=== PATIENT | female | born 1955 | race Caucasian/White ===

== ENCOUNTER 2018-06-29 22:22 | Emergency (ER) | payer MEDICAID, SELFPAY ==
[2018-06-29 22:24] VITALS: BP 129/86; PULSE 68; RESP 20; TEMP 37; O2SAT 97
--- NOTE | 2018-06-29 22:31 | W.ED.GENAD ---
Discharge Plan Discharge Details Chief Complaint: FacialProb Clinical Impression: Burning sensation of nose Reason For Visit: burning sensation nose Primary Care Provider: Sera Gutiérrez ED Provider: Morales Conte Disposition Patient Disposition: HOME Condition: Stable Home Meds and New Rx's Prescriptions: Continue sertraline [Zoloft] 50 MG tablet 100 mg PO DAILY RF: 0 clonazepam 1 MG tablet,disintegrating 2 tab PO HS RF: 0 loperamide [Imodium A-D] 2 MG capsule 2 mg PO QID PRN (Reason: Diarrhea) RF: 0 metoprolol succinate 50 MG tablet extended release 24 hr 50 mg PO BID RF: 0 oxycodone-acetaminophen [Percocet] 1 EACH tablet 1 ea PO QID RF: 0 furosemide 20 MG tablet 20 mg PO BID RF: 0 methylphenidate HCl 10 MG tablet 10 mg PO DAILY RF: 0 nystatin (bulk) 1 EACH powder 1 ea Miscellaneous TID RF: 0 ipratropium-albuterol 3 ML solution for nebulization 3 ml Inhalation QID RF: 0 acetaminophen 500 MG tablet 1,000 mg PO Q6H PRN RF: 0 naloxone [Narcan] 4 MG spray,non-aerosol 4 mg NS as directed 1 Days Qty: 2 RF: 0 lorazepam 0.5 MG tablet 0.5 mg PO QID PRNRF: 0 pantoprazole 40 MG tablet,delayed release (DR/EC) 40 mg PO DAILY RF: 0 albuterol sulfate [ProAir HFA] 200 PUFF HFA aerosol inhaler 2 puff Inhalation .Q4-6H PRN PRNRF: 0 cyclobenzaprine 10 MG tablet 10 mg PO BID RF: 0 calcium carbonate-vitamin D3 1 EACH tablet 2 tab PO BID RF: 0 ferrous sulfate 325 MG tablet 325 mg PO DAILY RF: 0 dicyclomine 10 MG capsule 10 mg PO BID RF: 0 loratadine 10 MG tablet 10 mg PO DAILY PRNRF: 0 fluticasone-salmeterol [Advair HFA] 60 PUFF HFA aerosol inhaler 2 puff Inhalation BID RF: 0 anastrozole [Arimidex] 1 MG tablet 1 mg PO DAILY RF: 0 glucosamine sulfate 2KCl 1,000 MG tablet 500 mg PO BID RF: 0 cyanocobalamin (vitamin B-12) [Vitamin B-12] 100 MCG tablet 100 mcg PO DAILY RF: 0 sennosides-docusate sodium [Senna-S] 1 EACH tablet 2 ea PO BID RF: 0 ascorbic acid (vitamin C) [Vitamin C] 500 MG tablet 500 mg PO BID RF: 0 nitroglycerin [Nitrostat] 0.4 MG tablet, sublingual 0.4 mg Sublingual DIRECTED PRNRF: 0 ergocalciferol (vitamin D2) [Vitamin D2] 50,000 UNITS capsule 50,000 units PO DIRECTED RF: 0 zolpidem 10 MG tablet 10 mg PO HS PRN PRNRF: 0 spironolactone 25 MG tablet 25 mg PO DAILY Qty: 30 RF: 0 azithromycin 250 MG tablet 250 mg PO DAILY Qty: 4 RF: 0 Discharge Instructions Additional Instructions: you can try using a humidifier, you can also try taking claritin follow up with your primary care provider if symptoms continue this week return to the emergency department for severe chest pain, persistent vomit or severe worsening shortness of breath Discharge Data Discharge Physician: Morales Conte Medical Decision Making [facility] Narrative Medical decision making narrative: 62 yo female with multiple medical problems who is on oxygen comes in with cc of burning sensation in posterior pharynx and nose, no chest pain or sob. She denies any difficulty swallowing either or changes in voice. She states there is a burning sensation from anterior nares to posterior pharynx. Has midline uvula, no erythema, no pain over hyoid or restricted neck movements, and normal nares. She tried mylanta and did not have much relief and states she thought oragel might help so came here. Given her lack of chest pain or sob and the burning sensation is primarily in her nose do not feel w/u for acs indicated. No findings to suggest epiglotitis, rpa, guest experience captain or pharyngitis. I advised she might have discomfort from the oxygen or maybe allergies, she should try a humidifier vs claritin and f/u with pcp, return precautions Differential Diagnosis dry air, gerd, rhinitis HPI - General Adult General Mode of arrival: EMS. Date/Time Provider Initiated Documentation: 06/29/18 22:30. Limitations to Documentation: no limitations. Information obtained by: patient. History of Present Illness 62 year old F presents to the emergency department with the chief complaint of burning sensation in posterior pharynx and nose, described as mild, with intensity rated at 4. Quality is described as burning, and is localized to the mouth. Patient reports no radiation. Patient started experiencing this hour(s) (2) and it has been constant. No relieving factors improve symptom(s), No exacerbating factors reported . Patient notes no other symptoms.. Patient did receive the following treatments prior to arrival, other (mylanta) Related Data Home Medications Medication Instructions Recorded Confirmed lorazepam 0.5 mg PO QID PRN 03/09/13 04/26/18 pantoprazole 40 mg PO DAILY 03/09/13 12/23/17 clonazepam 2 tab PO HS 10/03/14 04/26/18 sertraline [Zoloft] 100 mg PO DAILY tab-cap 10/03/14 12/23/17 albuterol sulfate [ProAir HFA] 2 puff INHALATION .Q4-6H PRN PRN 10/26/14 04/26/18 calcium carbonate-vitamin D3 2 tab PO BID 10/26/14 04/26/18 cyclobenzaprine 10 mg PO BID 10/26/14 04/26/18 dicyclomine 10 mg PO BID 10/26/14 04/26/18 ferrous sulfate 325 mg PO DAILY 10/26/14 04/26/18 fluticasone-salmeterol [Advair HFA] 2 puff INHALATION BID 10/26/14 04/26/18 loratadine 10 mg PO DAILY PRN 10/26/14 04/26/18 loperamide [Imodium A-D] 2 mg PO QID PRN 12/09/16 04/26/18 metoprolol succinate 50 mg PO BID 12/09/16 04/26/18 anastrozole [Arimidex] 1 mg PO DAILY 12/18/16 04/26/18 glucosamine sulfate 2KCl 500 mg PO BID 12/18/16 04/26/18 ascorbic acid (vitamin C) [Vitamin 500 mg PO BID 05/30/17 04/26/18 C] cyanocobalamin (vitamin B-12) 100 mcg PO DAILY 05/30/17 04/26/18 [Vitamin B-12] ergocalciferol (vitamin D2) 50,000 units PO DIRECTED 05/30/17 04/26/18 [Vitamin D2] nitroglycerin [Nitrostat] 0.4 mg SUBLINGUAL DIRECTED PRN 05/30/17 04/26/18 sennosides-docusate sodium 2 ea PO BID 05/30/17 12/23/17 [Senna-S] zolpidem 10 mg PO HS PRN PRN 05/30/17 04/26/18 acetaminophen 1,000 mg PO Q6H PRN tab-cap 02/12/18 04/26/18 furosemide 20 mg PO BID tab-cap 02/12/18 04/26/18 ipratropium-albuterol 3 ml INHALATION QID 02/12/18 04/26/18 methylphenidate HCl 10 mg PO DAILY 02/12/18 04/26/18 nystatin (bulk) 1 ea MISCELLANEOUS TID jad 02/12/18 04/26/18 oxycodone-acetaminophen [Percocet] 1 ea PO QID tab 02/12/18 04/26/18 Previous Rx's Medication Instructions Recorded spironolactone 25 mg PO DAILY #30 tab 08/30/17 azithromycin 250 mg PO DAILY #4 tablet 04/26/18 Allergies Allergy/AdvReac Type Severity Reaction Status Date / Time haloperidol Allergy Severe seizure Unverified 02/16/18 12:08 cephalexin monohydrate Allergy Mild Unverified 02/16/18 12:08 [From Keflex] ciprofloxacin [From Cipro] Allergy Mild Hives Unverified 02/16/18 12:08 dextroamphetamine Allergy Unknown Unverified 02/16/18 12:08 doxylamine Allergy Unknown Unverified 02/16/18 12:08 eszopiclone [From Lunesta] Allergy Unknown Unverified 02/16/18 12:08 Penicillins Allergy Unknown Unverified 02/16/18 12:08 pseudoephedrine Allergy Unknown Unverified 02/16/18 12:08 Sulfa (Sulfonamide Allergy Unknown Unverified 02/16/18 12:08 Antibiotics) trazodone Allergy Unknown Unverified 02/16/18 12:08 venlafaxine HCl AdvReac Severe crazy Unverified 02/16/18 12:08 [From Effexor] dextromethorphan HBr AdvReac Intermediate muscle Unverified 02/16/18 12:08 [From NyQuil] twitch doxylamine succinate AdvReac Intermediate muscle Unverified 02/16/18 12:08 [From NyQuil] twitch omeprazole AdvReac Intermediate Diarrhea Unverified 02/16/18 12:08 pseudoephedrine HCl AdvReac Intermediate muscle Unverified 02/16/18 12:08 [From NyQuil] twitch chlorpromazine HCl AdvReac passes out Unverified 02/16/18 12:08 [From Thorazine] Review of Systems Review of Systems All systems reviewed & are unremarkable except as noted in HPI and below Constitutional Denies chills, Denies fever(s) and Denies weakness Eyes Patient Denies loss of vision ENT Denies change in voice Cardiovascular Denies chest pain and Denies dyspnea Respiratory Denies dyspnea Gastrointestinal Denies abdominal pain, Denies nausea and Denies vomiting Genitourinary Denies dysuria Musculoskeletal Denies joint swelling Integumentary/Breasts Denies rash Neurologic Denies loss of vision and Denies weakness Psychiatric Denies depression Endocrine Denies cold intolerance and Denies heat intolerance Allergic/Immunologic Reports urticaria PFSH Medical History ADD (attention deficit disorder) Angina at rest Asthma Atrial fibrillation Breast cancer Chest pain, atypical Chronic pain Chronic rhinitis Cirrhosis of liver Compression fracture of spine Decreased visual acuity Depression Diastolic heart failure GI (gastrointestinal bleed) Gastric bypass status for obesity History of paroxysmal supraventricular tachycardia Hx of deep venous thrombosis Hyperparathyroidism , secondary, non-renal Hypertension IBS (irritable bowel syndrome) Insomnia Morbid obesity STACEY (obstructive sleep apnea) Osteoarthritis Osteopenia Oxygen dependent PUD (peptic ulcer disease) Pulmonary HTN Superficial thrombophlebitis Tricuspid regurgitation Social History Smoking/Tobacco Use Status: Former Tobacco Use Surgical History Breast, Mastectomy EGD - MAC Gastric Bypass Exam Const General: no acute distress Orientation: alert HENMT Head: normal to inspection Ears: external ears normal General nose exam: external nose normal Mouth: oropharynx normal and moist mucous membranes Eyes General: appearance normal, both eyes and all related structures Neck Neck: normal visual inspection Resp Effort & Inspection: normal respiratory effort and able to speak in complete sentences Cardio Rate: regular rate Skin General skin exam: no rashes or lesions noted Neuro General: alert and oriented x3 Extrem General: normal to inspection Psych Mental Status: mental status grossly normal
--- NOTE | 2018-06-29 22:34 | ED.GENADUL_ITS ---
Discharge Plan Discharge Details Chief Complaint: FacialProb Clinical Impression: Burning sensation of nose Reason For Visit: burning sensation nose Primary Care Provider: Sera Gutiérrez ED Provider: Morales Conte Disposition Patient Disposition: HOME Condition: Stable Home Meds and New Rx's Prescriptions: Continue sertraline [Zoloft] 50 MG tablet 100 mg PO DAILY RF: 0 clonazepam 1 MG tablet,disintegrating 2 tab PO HS RF: 0 loperamide [Imodium A-D] 2 MG capsule 2 mg PO QID PRN (Reason: Diarrhea) RF: 0 metoprolol succinate 50 MG tablet extended release 24 hr 50 mg PO BID RF: 0 oxycodone-acetaminophen [Percocet] 1 EACH tablet 1 ea PO QID RF: 0 furosemide 20 MG tablet 20 mg PO BID RF: 0 methylphenidate HCl 10 MG tablet 10 mg PO DAILY RF: 0 nystatin (bulk) 1 EACH powder 1 ea Miscellaneous TID RF: 0 ipratropium-albuterol 3 ML solution for nebulization 3 ml Inhalation QID RF: 0 acetaminophen 500 MG tablet 1,000 mg PO Q6H PRN RF: 0 naloxone [Narcan] 4 MG spray,non-aerosol 4 mg NS as directed 1 Days Qty: 2 RF: 0 lorazepam 0.5 MG tablet 0.5 mg PO QID PRNRF: 0 pantoprazole 40 MG tablet,delayed release (DR/EC) 40 mg PO DAILY RF: 0 albuterol sulfate [ProAir HFA] 200 PUFF HFA aerosol inhaler 2 puff Inhalation .Q4-6H PRN PRNRF: 0 cyclobenzaprine 10 MG tablet 10 mg PO BID RF: 0 calcium carbonate-vitamin D3 1 EACH tablet 2 tab PO BID RF: 0 ferrous sulfate 325 MG tablet 325 mg PO DAILY RF: 0 dicyclomine 10 MG capsule 10 mg PO BID RF: 0 loratadine 10 MG tablet 10 mg PO DAILY PRNRF: 0 fluticasone-salmeterol [Advair HFA] 60 PUFF HFA aerosol inhaler 2 puff Inhalation BID RF: 0 anastrozole [Arimidex] 1 MG tablet 1 mg PO DAILY RF: 0 glucosamine sulfate 2KCl 1,000 MG tablet 500 mg PO BID RF: 0 cyanocobalamin (vitamin B-12) [Vitamin B-12] 100 MCG tablet 100 mcg PO DAILY RF: 0 sennosides-docusate sodium [Senna-S] 1 EACH tablet 2 ea PO BID RF: 0 ascorbic acid (vitamin C) [Vitamin C] 500 MG tablet 500 mg PO BID RF: 0 nitroglycerin [Nitrostat] 0.4 MG tablet, sublingual 0.4 mg Sublingual DIRECTED PRNRF: 0 ergocalciferol (vitamin D2) [Vitamin D2] 50,000 UNITS capsule 50,000 units PO DIRECTED RF: 0 zolpidem 10 MG tablet 10 mg PO HS PRN PRNRF: 0 spironolactone 25 MG tablet 25 mg PO DAILY Qty: 30 RF: 0 azithromycin 250 MG tablet 250 mg PO DAILY Qty: 4 RF: 0 Discharge Instructions Additional Instructions: you can try using a humidifier, you can also try taking claritin follow up with your primary care provider if symptoms continue this week return to the emergency department for severe chest pain, persistent vomit or severe worsening shortness of breath Discharge Data Discharge Physician: Morales Conte Medical Decision Making [facility] Narrative Medical decision making narrative: 62 yo female with multiple medical problems who is on oxygen comes in with cc of burning sensation in posterior pharynx and nose, no chest pain or sob. She denies any difficulty swallowing either or changes in voice. She states there is a burning sensation from anterior nares to posterior pharynx. Has midline uvula, no erythema, no pain over hyoid or restricted neck movements, and normal nares. She tried mylanta and did not have much relief and states she thought oragel might help so came here. Given her lack of chest pain or sob and the burning sensation is primarily in her nose do not feel w/u for acs indicated. No findings to suggest epiglotitis, rpa, seating captain or pharyngitis. I advised she might have discomfort from the oxygen or maybe allergies, she should try a humidifier vs claritin and f/u with pcp, return precautions Differential Diagnosis dry air, gerd, rhinitis HPI - General Adult General Mode of arrival: EMS . Date/Time Provider Initiated Documentation: 06/29/18 22:30 . Limitations to Documentation: no limitations . Information obtained by: patient . History of Present Illness 62 year old F presents to the emergency department with the chief complaint of burning sensation in posterior pharynx and nose, described as mild, with intensity rated at 4. Quality is described as burning, and is localized to the mouth. Patient reports no radiation. Patient started experiencing this hour(s) (2) and it has been constant. No relieving factors improve symptom(s ), No exacerbating factors reported . Patient notes no other symptoms.. Patient did receive the following treatments prior to arrival, other (mylanta) Related Data Home Medications Medication Instructions Recorded Confirmed lorazepam 0.5 mg PO QID PRN 03/09/13 04/26/18 pantoprazole 40 mg PO DAILY 03/09/13 12/23/17 clonazepam 2 tab PO HS 10/03/14 04/26/18 sertraline [Zoloft] 100 mg PO DAILY tab-cap 10/03/14 12/23/17 albuterol sulfate [ProAir HFA] 2 puff INHALATION .Q4-6H PRN PRN 10/26/14 calcium carbonate-vitamin D3 2 tab PO BID 10/26/14 04/26/18 cyclobenzaprine 10 mg PO BID 10/26/14 04/26/18 dicyclomine 10 mg PO BID 10/26/14 04/26/18 ferrous sulfate 325 mg PO DAILY 10/26/14 04/26/18 fluticasone-salmeterol [Advair HFA] 2 puff INHALATION BID 10/26/14 04/26/18 loratadine 10 mg PO DAILY PRN 10/26/14 04/26/18 loperamide [Imodium A-D] 2 mg PO QID PRN 12/09/16 04/26/18 metoprolol succinate 50 mg PO BID 12/09/16 04/26/18 anastrozole [Arimidex] 1 mg PO DAILY 12/18/16 04/26/18 glucosamine sulfate 2KCl 500 mg PO BID 12/18/16 04/26/18 ascorbic acid (vitamin C) [Vitamin 500 mg PO BID 05/30/17 04/26/18 C] cyanocobalamin (vitamin B-12) 100 mcg PO DAILY 05/30/17 04/26/18 [Vitamin B-12] ergocalciferol (vitamin D2) 50,000 units PO DIRECTED 05/30/17 04/26/18 [Vitamin D2] nitroglycerin [Nitrostat] 0.4 mg SUBLINGUAL DIRECTED PRN 05/30/17 04/26/18 sennosides-docusate sodium 2 ea PO BID 05/30/17 12/23/17 [Senna-S] zolpidem 10 mg PO HS PRN PRN 05/30/17 04/26/18 acetaminophen 1,000 mg PO Q6H PRN tab-cap 02/12/18 04/26/18 furosemide 20 mg PO BID tab-cap 02/12/18 04/26/18 ipratropium-albuterol 3 ml INHALATION QID 02/12/18 04/26/18 methylphenidate HCl 10 mg PO DAILY 02/12/18 04/26/18 nystatin (bulk) 1 ea MISCELLANEOUS TID jad 02/12/18 04/26/18 oxycodone-acetaminophen [Percocet] 1 ea PO QID tab 02/12/18 04/26/18 Previous Rx's Medication Instructions Recorded spironolactone 25 mg PO DAILY #30 tab 08/30/17 azithromycin 250 mg PO DAILY #4 tablet 04/26/18 Allergies Allergy/AdvReac Type Severity Reaction Status Date / Time haloperidol Allergy Severe seizure Unverified 02/16/18 12:08 cephalexin monohydrate Allergy Mild Unverified 02/16/18 12:08 [From Keflex] ciprofloxacin [From Cipro] Allergy Mild Hives Unverified 02/16/18 12:08 dextroamphetamine Allergy Unknown Unverified 02/16/18 12:08 doxylamine Allergy Unknown Unverified 02/16/18 12:08 eszopiclone [From Lunesta] Allergy Unknown Unverified 02/16/18 12:08 Penicillins Allergy Unknown Unverified 02/16/18 12:08 pseudoephedrine Allergy Unknown Unverified 02/16/18 12:08 Sulfa (Sulfonamide Allergy Unknown Unverified 02/16/18 12:08 Antibiotics) trazodone Allergy Unknown Unverified 02/16/18 12:08 venlafaxine HCl AdvReac Severe crazy Unverified 02/16/18 12:08 [From Effexor] dextromethorphan HBr AdvReac Intermediate muscle Unverified 02/16/18 12:08 [From NyQuil] twitch doxylamine succinate AdvReac Intermediate muscle Unverified 02/16/18 12:08 [From NyQuil] twitch omeprazole AdvReac Intermediate Diarrhea Unverified 02/16/18 12:08 pseudoephedrine HCl AdvReac Intermediate muscle Unverified 02/16/18 12:08 [From NyQuil] twitch chlorpromazine HCl AdvReac passes out Unverified 02/16/18 12:08 [From Thorazine] Review of Systems Review of Systems All systems reviewed & are unremarkable except as noted in HPI and below Constitutional Denies chills, Denies fever(s) and Denies weakness Eyes Patient Denies loss of vision ENT Denies change in voice Cardiovascular Denies chest pain and Denies dyspnea Respiratory Denies dyspnea Gastrointestinal Denies abdominal pain, Denies nausea and Denies vomiting Genitourinary Denies dysuria Musculoskeletal Denies joint swelling Integumentary/Breasts Denies rash Neurologic Denies loss of vision and Denies weakness Psychiatric Denies depression Endocrine Denies cold intolerance and Denies heat intolerance Allergic/Immunologic Reports urticaria PFSH Medical History ADD (attention deficit disorder) Angina at rest Asthma Atrial fibrillation Breast cancer Chest pain, atypical Chronic pain Chronic rhinitis Cirrhosis of liver Compression fracture of spine Decreased visual acuity Depression Diastolic heart failure GI (gastrointestinal bleed) Gastric bypass status for obesity History of paroxysmal supraventricular tachycardia Hx of deep venous thrombosis Hyperparathyroidism , secondary, non-renal Hypertension IBS (irritable bowel syndrome) Insomnia Morbid obesity STACEY (obstructive sleep apnea) Osteoarthritis Osteopenia Oxygen dependent PUD (peptic ulcer disease) Pulmonary HTN Superficial thrombophlebitis Tricuspid regurgitation Social History Smoking/Tobacco Use Status: Former Tobacco Use Surgical History Breast, Mastectomy EGD - MAC Gastric Bypass Exam Const General: no acute distress Orientation: alert HENMT Head: normal to inspection Ears: external ears normal General nose exam: external nose normal Mouth: oropharynx normal and moist mucous membranes Eyes General: appearance normal, both eyes and all related structures Neck Neck: normal visual inspection Resp Effort & Inspection: normal respiratory effort and able to speak in complete sentences Cardio Rate: regular rate Skin General skin exam: no rashes or lesions noted Neuro General: alert and oriented x3 Extrem General: normal to inspection Psych Mental Status: mental status grossly normal
== END 2018-06-29 23:04 | disposition home or self-care (01) ==
PROVIDERS: Emergency Provider Emergency Medicine; PCP Family Medicine
DX: R20.8 Other disturbances of skin sensation (principal); I10 Essential (primary) hypertension
CPT/HCPCS: 99282

== ENCOUNTER 2018-08-06 16:42 | Outpatient (CLI) | payer MEDICAID, SELFPAY ==
[2018-08-06 17:10] LABS: Abs Immature Grans 0.01 k/cumm (0.0-0.09); Absolute Basophil Count 0.02 k/cumm (0.0-0.2); Absolute Eosinophil Count 0.18 k/cumm (0.0-0.7); Absolute Monocyte Count 0.28 k/cumm (0.11-0.7); Absolute Neutrophil Count 4.65 k/cumm (1.2-6.7); Basophils % 0.3; HGB 13.6 g/dL (12.0-15.5); Immature Grans % 0.2; Lymphocytes % 14.9; Mean Corp. HGB Concentration 33.2 g/dL (32.0-36.0); Mean Corpuscular Hemoglobin 35.1 pg (27.0-33.0); Mean Corpuscular Volume 105.7 fL (80-95); Mean Platelet Volume 11.1 fL (8.0-11.0); Monocytes % 4.6; Platelet Count 148 x1000/uL (130-400); RBC 3.88 m/cumm (4.00-5.20); RBC Distribution Width 12.9 % (11.7-14.6); White Blood Cell Count 6.04 k/cumm (4.4-10.8)
[2018-08-06 17:59] LABS: ALT 16 U/L (12-78); AST 11 U/L (15-37); Albumin 3.2 g/dL (3.4-5.0); Alkaline Phosphatase 133 U/L (46-116); BUN 25 mg/dL (7-18); Bilirubin, Total 0.5 mg/dL (0.2-1.0); CREATININE 0.86 mg/dL (0.55-1.02); Calcium 8.3 mg/dL (8.5-10.1); Chloride 103 mmol/L (98-107); Glucose 101 mg/dL (70-100); Potassium 4.9 mmol/L (3.5-5.1); Sodium 140 mmol/L (136-145); Total Protein 5.9 g/dL (6.4-8.2)
[2018-08-06 18:07] LABS: Diff Comment RBC Morph Reviewed; Macrocytosis 3+
== END 2018-08-06 17:02 ==
PROVIDERS: PCP Family Medicine; Visit Provider Nurse Practitioner
DX: C50.612 Malignant neoplasm of axillary tail of left female breast (principal); Z17.0 Estrogen receptor positive status [ER+]
CPT/HCPCS: 36415; 80053; 85025

== ENCOUNTER 2018-08-30 06:28 | Emergency (ER) | payer MEDICAID, SELFPAY ==
[2018-08-30] VITALS (70 sets, daily range): BP systolic 56–128; BP diastolic 38–97; PULSE 70–167; RESP 13–37; TEMP 37.2–39.5; O2SAT 92–100
--- NOTE | 2018-08-30 06:42 | DI.CT_ITS ---
SYMPTOM/DIAGNOSIS: ABDOMINAL BLOATING, DISTENSION,. CT ABDOMEN AND PELVIS: CT abdomen and pelvis was performed. Comparison 11/28/16 and 04/26/18 There is again seen what appears to be a loculated pleural effusion in the left lung base with adjacent atelectasis. This is unchanged compared to 04/26/18. There is a small right pleural effusion and subjacent infiltrate. The liver, spleen, and adrenal glands are unremarkable. No biliary ductal dilatation is present. The pancreas appears atrophic but otherwise unremarkable.. The kidneys show normal and symmetric enhancement. No evidence of a solid renal mass or obstruction. The urinary bladder is intact. The reproductive organs are unremarkable. Abdominal aorta is of normal caliber. No significant abdominal or pelvic adenopathy, ascites or pneumoperitoneum is present. There is a large pannus containing loops of small and large bowel. No evidence of bowel obstruction is seen. Bowel anastomoses are seen in the abdomen and pelvis. There does appear to be a small anterior abdominal wall hernia to the right of midline containing an unremarkable loop of small bowel. No evidence of incarceration or obstruction is seen. Suture material is seen in the anterior abdominal wall. No findings to suggest an acute appendicitis are present. The bones appear osteopenic. No acute fractures or subluxations are seen. There is a compression deformity of the superior end plate of L2, not present on the examination from 11/28/16 but present on the x-ray of the lumbar spine from 10/20/17 and is unchanged. No new fractures or subluxations in the lumbar spine are seen. IMPRESSION: 1. Stable loculated left pleural effusion with subjacent infiltrate which may represent atelectasis or pneumonia. 2. Gaseous distension of several loops of bowel within the patient's pannus but no evidence of obstruction. 3. Small anterior abdominal wall hernia to the right of midline containing an unremarkable loop of small bowel. The bowel shows no evidence of obstruction , incarceration or strangulation.
--- NOTE | 2018-08-30 06:45 | W.ED.GENAD ---
Discharge Plan Disposition Patient Disposition: [facility] Condition: Critical Discharge Details Chief Complaint: Abd Prob Clinical Impression: Septic shock, Transaminitis Reason For Visit: ARTHUREX Primary Care Provider: Sera Gutiérrez ED Provider: Vadim Hernandze Home Meds and New Rx's Prescriptions: No Action sertraline [Zoloft] 50 MG tablet 100 mg PO DAILY RF: 0 clonazepam 1 MG tablet,disintegrating 2 tab PO HS RF: 0 loperamide [Imodium A-D] 2 MG capsule 2 mg PO QID PRN (Reason: Diarrhea) RF: 0 metoprolol succinate 50 MG tablet extended release 24 hr 50 mg PO BID RF: 0 oxycodone-acetaminophen [Percocet] 1 EACH tablet 1 ea PO QID RF: 0 furosemide 20 MG tablet 20 mg PO BID RF: 0 methylphenidate HCl 10 MG tablet 10 mg PO DAILY RF: 0 nystatin (bulk) 1 EACH powder 1 ea Miscellaneous TID RF: 0 ipratropium-albuterol 3 ML solution for nebulization 3 ml Inhalation QID RF: 0 acetaminophen 500 MG tablet 1,000 mg PO Q6H PRN RF: 0 naloxone [Narcan] 4 MG spray,non-aerosol 4 mg NS as directed 1 Days Qty: 2 RF: 0 lorazepam 0.5 MG tablet 0.5 mg PO QID PRNRF: 0 pantoprazole 40 MG tablet,delayed release (DR/EC) 40 mg PO DAILY RF: 0 albuterol sulfate [ProAir HFA] 200 PUFF HFA aerosol inhaler 2 puff Inhalation .Q4-6H PRN PRNRF: 0 cyclobenzaprine 10 MG tablet 10 mg PO BID RF: 0 calcium carbonate-vitamin D3 1 EACH tablet 2 tab PO BID RF: 0 ferrous sulfate 325 MG tablet 325 mg PO DAILY RF: 0 dicyclomine 10 MG capsule 10 mg PO BID RF: 0 loratadine 10 MG tablet 10 mg PO DAILY PRNRF: 0 fluticasone-salmeterol [Advair HFA] 60 PUFF HFA aerosol inhaler 2 puff Inhalation BID RF: 0 anastrozole [Arimidex] 1 MG tablet 1 mg PO DAILY RF: 0 glucosamine sulfate 2KCl 1,000 MG tablet 500 mg PO BID RF: 0 cyanocobalamin (vitamin B-12) [Vitamin B-12] 100 MCG tablet 100 mcg PO DAILY RF: 0 sennosides-docusate sodium [Senna-S] 1 EACH tablet 2 ea PO BID RF: 0 ascorbic acid (vitamin C) [Vitamin C] 500 MG tablet 500 mg PO BID RF: 0 nitroglycerin [Nitrostat] 0.4 MG tablet, sublingual 0.4 mg Sublingual DIRECTED PRNRF: 0 ergocalciferol (vitamin D2) [Vitamin D2] 50,000 UNITS capsule 50,000 units PO DIRECTED RF: 0 zolpidem 10 MG tablet 10 mg PO HS PRN PRNRF: 0 spironolactone 25 MG tablet 25 mg PO DAILY Qty: 30 RF: 0 azithromycin 250 MG tablet 250 mg PO DAILY Qty: 4 RF: 0 Medical Decision Making <Shade Saunders MD - Last Filed: 08/30/18 07:17> 62-year-old female with multiple medical problems presents with hours of progressive abdominal pain and bloating. She arrives appearing mildly jaundiced, with a distended and tender abdomen, with rate controlled atrial fibrillation. Differential diagnosis includes electrolyte disturbance, cholangitis, Dehydration, ileus, small bowel obstruction. Given her age and comorbidities must consider occult presentation of [place]. Patient referred for laboratory testing, EKG, chest x-ray, CT scan of the abdomen and pelvis. it is change of shift, patient will be signed out to Dr Hernandez, please see his note regarding the patients diagnostic findings. ECG Data Attestation: I personally reviewed and interpreted this ECG (s) as follows: Interpretation: Underlying atrial fibrillation, rate of 100, QRS is narrow, there is no ST segment elevation <Vadim Hernandez MD - Last Filed: 08/30/18 14:02> 7:30 -- Care signed out to me by Dr. Saunders: Patient here with abdominal pain, jaundice, transaminitis, leukocytosis, abdominal pain, bloating, diffuse tenderness. Hypotensive. Patient receiving IV fluid bolus. Plan to follow-up on CT imaging. -- Patient febrile. Patient has multiple drug allergies. Will give flagyl IV. 11:00 -- patient reassessed multiple times. Patient was initial difficult IV access. She now has 2 IVs. -- UA reviewed and consist with UTI. Patient has been on macrobid for uti over past week. ttp on my exam RUQ. 12:30 --CT of the abdomen and pelvis interpreted by radiology: Stable left suspected loculated pleural effusion with adjacent mild atelectasis. Minimal right dependent atelectasis. Gaseous distention of multiple bowel loops within the pannus. No evidence of bowel obstruction. Small ventral hernia left abdomen containing single small bowel loop, hernia measuring 12 mm. No proximal obstruction liver noted to be normal with no mass. Gallbladder and bile ducts noted to be normal with no calcified stones and no ductal dilatation. She is received 3 L of crystalloid. MAP improved to 100. Concern for urosepsis vs cholangitis vs other. Will add aztreonam 2g IV. No ICU beds available here. -- BP decreased to 78/45. Will start levophed infusion. 13:00 -- Spoke with Dr. Chamorro who will accept at [facility] [place]. 13:15 -- BP improved on 8mcg/min. Left AC 18g working well. 14:00 -- Patient reassessed and BP stable with MAP 70 at time of transfer. HPI <Shade Saunders MD - Last Filed: 08/30/18 07:17> General Mode of arrival: EMS. Date/Time Provider Initiated Documentation: 08/30/18 07:07. Limitations to Documentation: no limitations. Information obtained by: patient and EMS. History of Present Illness 62 year old F presents to the emergency department with the chief complaint of Abdominal pain and bloating, described as moderate, Quality is described as aching and constant, and is localized to the abdomen. Patient started experiencing this hour(s) and it has been constant. No relieving factors improve symptom(s), No exacerbating factors reported . Patient notes denies fever/chills. HPI Narrative: 62-year-old female presents from home via EMS. She describes to me hours of progressive abdominal pain and bloating with somewhat feculent belching. The patient has been nauseated but no emesis. She states to me that she has had pastelike stools. No significant change to urination. She denies chest pain or shortness of breath. She has a mild dull headache. Related Data Home Medications Medication Instructions Recorded Confirmed lorazepam 0.5 mg PO QID PRN 03/09/13 08/30/18 pantoprazole 40 mg PO DAILY 03/09/13 08/30/18 clonazepam 2 tab PO HS 10/03/14 08/30/18 sertraline [Zoloft] 100 mg PO DAILY tab-cap 10/03/14 08/30/18 albuterol sulfate [ProAir HFA] 2 puff INHALATION .Q4-6H PRN PRN 10/26/14 08/30/18 calcium carbonate-vitamin D3 2 tab PO BID 10/26/14 08/30/18 cyclobenzaprine 10 mg PO BID 10/26/14 08/30/18 dicyclomine 10 mg PO BID 10/26/14 08/30/18 ferrous sulfate 325 mg PO DAILY 10/26/14 08/30/18 fluticasone-salmeterol [Advair HFA] 2 puff INHALATION BID 10/26/14 08/30/18 loratadine 10 mg PO DAILY PRN 10/26/14 08/30/18 loperamide [Imodium A-D] 2 mg PO QID PRN 12/09/16 08/30/18 metoprolol succinate 50 mg PO BID 12/09/16 08/30/18 anastrozole [Arimidex] 1 mg PO DAILY 12/18/16 08/30/18 glucosamine sulfate 2KCl 500 mg PO BID 12/18/16 08/30/18 ascorbic acid (vitamin C) [Vitamin 500 mg PO BID 05/30/17 08/30/18 C] cyanocobalamin (vitamin B-12) 100 mcg PO DAILY 05/30/17 08/30/18 [Vitamin B-12] ergocalciferol (vitamin D2) 50,000 units PO DIRECTED 05/30/17 08/30/18 [Vitamin D2] nitroglycerin [Nitrostat] 0.4 mg SUBLINGUAL DIRECTED PRN 05/30/17 08/30/18 sennosides-docusate sodium 2 ea PO BID 05/30/17 08/30/18 [Senna-S] zolpidem 10 mg PO HS PRN PRN 05/30/17 08/30/18 spironolactone 25 mg PO DAILY #30 tab 08/30/17 08/30/18 acetaminophen 1,000 mg PO Q6H PRN tab-cap 02/12/18 08/30/18 furosemide 20 mg PO BID tab-cap 02/12/18 08/30/18 ipratropium-albuterol 3 ml INHALATION QID 02/12/18 08/30/18 methylphenidate HCl 10 mg PO DAILY 02/12/18 08/30/18 nystatin (bulk) 1 ea MISCELLANEOUS TID jad 02/12/18 08/30/18 oxycodone-acetaminophen [Percocet] 1 ea PO QID tab 02/12/18 08/30/18 naloxone [Narcan] 4 mg NS as directed 1 Days #2 spray 02/16/18 08/30/18 azithromycin 250 mg PO DAILY #4 tablet 04/26/18 08/30/18 Previous Rx's Medication Instructions Recorded spironolactone 25 mg PO DAILY #30 tab 08/30/17 naloxone [Narcan] 4 mg NS as directed 1 Days #2 spray 02/16/18 azithromycin 250 mg PO DAILY #4 tablet 04/26/18 Allergies Allergy/AdvReac Type Severity Reaction Status Date / Time haloperidol Allergy Severe seizure Unverified 08/30/18 07:12 cephalexin monohydrate Allergy Mild Unverified 08/30/18 07:12 [From Keflex] ciprofloxacin [From Cipro] Allergy Mild Hives Unverified 08/30/18 07:12 dextroamphetamine Allergy Unknown Unverified 08/30/18 07:12 doxylamine Allergy Unknown Unverified 08/30/18 07:12 eszopiclone [From Lunesta] Allergy Unknown Unverified 08/30/18 07:12 Penicillins Allergy Unknown Unverified 08/30/18 07:12 pseudoephedrine Allergy Unknown Unverified 08/30/18 07:12 Sulfa (Sulfonamide Allergy Unknown Unverified 08/30/18 07:12 Antibiotics) trazodone Allergy Unknown Unverified 08/30/18 07:12 venlafaxine HCl AdvReac Severe crazy Unverified 08/30/18 07:12 [From Effexor] dextromethorphan HBr AdvReac Intermediate muscle Unverified 08/30/18 07:12 [From NyQuil] twitch doxylamine succinate AdvReac Intermediate muscle Unverified 08/30/18 07:12 [From NyQuil] twitch omeprazole AdvReac Intermediate Diarrhea Unverified 08/30/18 07:12 pseudoephedrine HCl AdvReac Intermediate muscle Unverified 08/30/18 07:12 [From NyQuil] twitch chlorpromazine HCl AdvReac passes out Unverified 08/30/18 07:12 [From Thorazine] General Stated Complaint: Abd Prob GRISELDA: 3 Review of Systems <Shade Saunders MD - Last Filed: 08/30/18 07:17> Review of Systems 6 systems reviewed and otherwise negative Exam <Shade Saunders MD - Last Filed: 08/30/18 07:17> Narrative Exam Narrative: GEN: awake, alert, oriented 3. Pleasant, well groomed, interactive. HEAD: Normocephalic, atraumatic ENT: Mucous membranes moist, oropharynx unremarkable, External ear exam unremarkable EYES: PERRL, EOMI NECK: Full ROM, no BLU, no menigismus CHEST/RESP: Nontender, clear to auscultation bilateral, no wheeze/rhonchi/rales CARDIOVASCULAR: Irregularly irregular, rate approximately 80, no rub sharri. 2+ Rad pulse bilateral ABDOMEN: Soft, distended, mildly tender to palpate, no mass. +Bowel sounds EXT: Full ROM, bilateral 1+ edema, no rash Skin: Question slight jaundice Neuro: Grossly normal neurologic exam, conversant, interactive. Psych: Speech fluent, thoughts congruent, affect normal Course <Shade Saunders MD - Last Filed: 08/30/18 07:17> Vital Signs Temperature 37.3 C 08/30/18 06:28 Pulse 107 H 08/30/18 06:28 Respiratory Rate 30 H 08/30/18 06:28 Pulse Oximetry 92 L 08/30/18 06:28 Temperature 37.3 C 08/30/18 06:28 Temperature Source Temporal Artery Scan 08/30/18 06:28 Pulse 107 H 08/30/18 06:28 Respiratory Rate 30 H 08/30/18 06:28 Respiratory Effort 08/30/18 06:28 Pulse Oximetry 92 L 08/30/18 06:28 Oxygen Delivery Method Room Air 08/30/18 06:28 Oxygen Flow Rate 0 08/30/18 06:28 Pain Level 8 08/30/18 06:28 <Vadim Hernandez MD - Last Filed: 08/30/18 14:02> Critical Care Time: Yes Total Critical Care Time: 75 Attestation: I spent greater than 75min addressing this patients immediate life threats Sign Out <Shade Saunders MD - Last Filed: 08/30/18 07:17> Sign Out Data: Sign Out Comment: Followup diagnostics: labs,XR,CT Last updated by Shade Saunders MD at 08/30/18 07:07
--- NOTE | 2018-08-30 06:50 | DI.RAD_ITS ---
SYMPTOM/DIAGNOSIS: ABD PAIN, NAUSEA FRONTAL AND LATERAL CHEST: Comparison is made with 08/28/17. The exam is suboptimal due to poor inspiration and the patient's body habitus. Heart size is within normal limits. There does appear to be mild pulmonary venous congestion. No focal consolidating infiltrates or gross effusions or pneumothoraces are identified. There is again seen scarring in the left lung apex. The bones show degenerative changes. IMPRESSION: 1. Mild pulmonary venous congestion.
--- NOTE | 2018-08-30 06:50 | ED.GENADUL_ITS ---
Discharge Plan Disposition Patient Disposition: [facility] Condition: Critical Discharge Details Chief Complaint: Abd Prob Clinical Impression: Septic shock, Transaminitis Reason For Visit: ARTHUREX Primary Care Provider: Sear Gutiérrez ED Provider: Vadim Hernandez Home Meds and New Rx's Prescriptions: No Action sertraline [Zoloft] 50 MG tablet 100 mg PO DAILY RF: 0 clonazepam 1 MG tablet,disintegrating 2 tab PO HS RF: 0 loperamide [Imodium A-D] 2 MG capsule 2 mg PO QID PRN (Reason: Diarrhea) RF: 0 metoprolol succinate 50 MG tablet extended release 24 hr 50 mg PO BID RF: 0 oxycodone-acetaminophen [Percocet] 1 EACH tablet 1 ea PO QID RF: 0 furosemide 20 MG tablet 20 mg PO BID RF: 0 methylphenidate HCl 10 MG tablet 10 mg PO DAILY RF: 0 nystatin (bulk) 1 EACH powder 1 ea Miscellaneous TID RF: 0 ipratropium-albuterol 3 ML solution for nebulization 3 ml Inhalation QID RF: 0 acetaminophen 500 MG tablet 1,000 mg PO Q6H PRN RF: 0 naloxone [Narcan] 4 MG spray,non-aerosol 4 mg NS as directed 1 Days Qty: 2 RF: 0 lorazepam 0.5 MG tablet 0.5 mg PO QID PRNRF: 0 pantoprazole 40 MG tablet,delayed release (DR/EC) 40 mg PO DAILY RF: 0 albuterol sulfate [ProAir HFA] 200 PUFF HFA aerosol inhaler 2 puff Inhalation .Q4-6H PRN PRNRF: 0 cyclobenzaprine 10 MG tablet 10 mg PO BID RF: 0 calcium carbonate-vitamin D3 1 EACH tablet 2 tab PO BID RF: 0 ferrous sulfate 325 MG tablet 325 mg PO DAILY RF: 0 dicyclomine 10 MG capsule 10 mg PO BID RF: 0 loratadine 10 MG tablet 10 mg PO DAILY PRNRF: 0 fluticasone-salmeterol [Advair HFA] 60 PUFF HFA aerosol inhaler 2 puff Inhalation BID RF: 0 anastrozole [Arimidex] 1 MG tablet 1 mg PO DAILY RF: 0 glucosamine sulfate 2KCl 1,000 MG tablet 500 mg PO BID RF: 0 cyanocobalamin (vitamin B-12) [Vitamin B-12] 100 MCG tablet 100 mcg PO DAILY RF: 0 sennosides-docusate sodium [Senna-S] 1 EACH tablet 2 ea PO BID RF: 0 ascorbic acid (vitamin C) [Vitamin C] 500 MG tablet 500 mg PO BID RF: 0 nitroglycerin [Nitrostat] 0.4 MG tablet, sublingual 0.4 mg Sublingual DIRECTED PRNRF: 0 ergocalciferol (vitamin D2) [Vitamin D2] 50,000 UNITS capsule 50,000 units PO DIRECTED RF: 0 zolpidem 10 MG tablet 10 mg PO HS PRN PRNRF: 0 spironolactone 25 MG tablet 25 mg PO DAILY Qty: 30 RF: 0 azithromycin 250 MG tablet 250 mg PO DAILY Qty: 4 RF: 0 Medical Decision Making <Shade Saunders MD - Last Filed: 08/30/18 07:17> 62-year-old female with multiple medical problems presents with hours of progressive abdominal pain and bloating. She arrives appearing mildly jaundiced , with a distended and tender abdomen, with rate controlled atrial fibrillation. Differential diagnosis includes electrolyte disturbance, cholangitis, Dehydration, ileus, small bowel obstruction. Given her age and comorbidities must consider occult presentation of [place]. Patient referred for laboratory testing, EKG, chest x-ray, CT scan of the abdomen and pelvis. it is change of shift, patient will be signed out to Dr Hernandez, please see his note regarding the patients diagnostic findings. ECG Data Attestation: I personally reviewed and interpreted this ECG (s) as follows: Interpretation: Underlying atrial fibrillation, rate of 100, QRS is narrow, there is no ST segment elevation <Vadim Hernandez MD - Last Filed: 08/30/18 14:02> 7:30 -- Care signed out to me by Dr. Saunders: Patient here with abdominal pain, jaundice, transaminitis, leukocytosis, abdominal pain, bloating, diffuse tenderness. Hypotensive. Patient receiving IV fluid bolus. Plan to follow-up on CT imaging. -- Patient febrile. Patient has multiple drug allergies. Will give flagyl IV. 11:00 -- patient reassessed multiple times. Patient was initial difficult IV access. She now has 2 IVs. -- UA reviewed and consist with UTI. Patient has been on macrobid for uti over past week. ttp on my exam RUQ. 12:30 --CT of the abdomen and pelvis interpreted by radiology: Stable left suspected loculated pleural effusion with adjacent mild atelectasis. Minimal right dependent atelectasis. Gaseous distention of multiple bowel loops within the pannus. No evidence of bowel obstruction. Small ventral hernia left abdomen containing single small bowel loop, hernia measuring 12 mm. No proximal obstruction liver noted to be normal with no mass. Gallbladder and bile ducts noted to be normal with no calcified stones and no ductal dilatation. She is received 3 L of crystalloid. MAP improved to 100. Concern for urosepsis vs cholangitis vs other. Will add aztreonam 2g IV. No ICU beds available here. -- BP decreased to 78/45. Will start levophed infusion. 13:00 -- Spoke with Dr. Chamorro who will accept at [facility] [place]. 13:15 -- BP improved on 8mcg/min. Left AC 18g working well. 14:00 -- Patient reassessed and BP stable with MAP 70 at time of transfer. HPI <Shade Saunders MD - Last Filed: 08/30/18 07:17> General Mode of arrival: EMS . Date/Time Provider Initiated Documentation: 08/30/18 07:07 . Limitations to Documentation: no limitations . Information obtained by: patient and EMS . History of Present Illness 62 year old F presents to the emergency department with the chief complaint of Abdominal pain and bloating, described as moderate, Quality is described as aching and constant, and is localized to the abdomen. Patient started experiencing this hour(s) and it has been constant. No relieving factors improve symptom(s), No exacerbating factors reported . Patient notes denies fever/chills. HPI Narrative: 62-year-old female presents from home via EMS. She describes to me hours of progressive abdominal pain and bloating with somewhat feculent belching. The patient has been nauseated but no emesis. She states to me that she has had pastelike stools. No significant change to urination. She denies chest pain or shortness of breath. She has a mild dull headache. Related Data Home Medications Medication Instructions Recorded Confirmed lorazepam 0.5 mg PO QID PRN 03/09/13 08/30/18 pantoprazole 40 mg PO DAILY 03/09/13 08/30/18 clonazepam 2 tab PO HS 10/03/14 08/30/18 sertraline [Zoloft] 100 mg PO DAILY tab-cap 10/03/14 08/30/18 albuterol sulfate [ProAir HFA] 2 puff INHALATION .Q4-6H PRN PRN 10/26/14 calcium carbonate-vitamin D3 2 tab PO BID 10/26/14 08/30/18 cyclobenzaprine 10 mg PO BID 10/26/14 08/30/18 dicyclomine 10 mg PO BID 10/26/14 08/30/18 ferrous sulfate 325 mg PO DAILY 10/26/14 08/30/18 fluticasone-salmeterol [Advair HFA] 2 puff INHALATION BID 10/26/14 08/30/18 loratadine 10 mg PO DAILY PRN 10/26/14 08/30/18 loperamide [Imodium A-D] 2 mg PO QID PRN 12/09/16 08/30/18 metoprolol succinate 50 mg PO BID 12/09/16 08/30/18 anastrozole [Arimidex] 1 mg PO DAILY 12/18/16 08/30/18 glucosamine sulfate 2KCl 500 mg PO BID 12/18/16 08/30/18 ascorbic acid (vitamin C) [Vitamin 500 mg PO BID 05/30/17 08/30/18 C] cyanocobalamin (vitamin B-12) 100 mcg PO DAILY 05/30/17 08/30/18 [Vitamin B-12] ergocalciferol (vitamin D2) 50,000 units PO DIRECTED 05/30/17 08/30/18 [Vitamin D2] nitroglycerin [Nitrostat] 0.4 mg SUBLINGUAL DIRECTED PRN 05/30/17 08/30/18 sennosides-docusate sodium 2 ea PO BID 05/30/17 08/30/18 [Senna-S] zolpidem 10 mg PO HS PRN PRN 05/30/17 08/30/18 spironolactone 25 mg PO DAILY #30 tab 08/30/17 08/30/18 acetaminophen 1,000 mg PO Q6H PRN tab-cap 02/12/18 08/30/18 furosemide 20 mg PO BID tab-cap 02/12/18 08/30/18 ipratropium-albuterol 3 ml INHALATION QID 02/12/18 08/30/18 methylphenidate HCl 10 mg PO DAILY 02/12/18 08/30/18 nystatin (bulk) 1 ea MISCELLANEOUS TID jad 02/12/18 08/30/18 oxycodone-acetaminophen [Percocet] 1 ea PO QID tab 02/12/18 08/30/18 naloxone [Narcan] 4 mg NS as directed 1 Days #2 spray 02/16/18 08/30/18 azithromycin 250 mg PO DAILY #4 tablet 04/26/18 08/30/18 Previous Rx's Medication Instructions Recorded spironolactone 25 mg PO DAILY #30 tab 08/30/17 naloxone [Narcan] 4 mg NS as directed 1 Days #2 spray 02/16/18 azithromycin 250 mg PO DAILY #4 tablet 04/26/18 Allergies Allergy/AdvReac Type Severity Reaction Status Date / Time haloperidol Allergy Severe seizure Unverified 08/30/18 07:12 cephalexin monohydrate Allergy Mild Unverified 08/30/18 07:12 [From Keflex] ciprofloxacin [From Cipro] Allergy Mild Hives Unverified 08/30/18 07:12 dextroamphetamine Allergy Unknown Unverified 08/30/18 07:12 doxylamine Allergy Unknown Unverified 08/30/18 07:12 eszopiclone [From Lunesta] Allergy Unknown Unverified 08/30/18 07:12 Penicillins Allergy Unknown Unverified 08/30/18 07:12 pseudoephedrine Allergy Unknown Unverified 08/30/18 07:12 Sulfa (Sulfonamide Allergy Unknown Unverified 08/30/18 07:12 Antibiotics) trazodone Allergy Unknown Unverified 08/30/18 07:12 venlafaxine HCl AdvReac Severe crazy Unverified 08/30/18 07:12 [From Effexor] dextromethorphan HBr AdvReac Intermediate muscle Unverified 08/30/18 07:12 [From NyQuil] twitch doxylamine succinate AdvReac Intermediate muscle Unverified 08/30/18 07:12 [From NyQuil] twitch omeprazole AdvReac Intermediate Diarrhea Unverified 08/30/18 07:12 pseudoephedrine HCl AdvReac Intermediate muscle Unverified 08/30/18 07:12 [From NyQuil] twitch chlorpromazine HCl AdvReac passes out Unverified 08/30/18 07:12 [From Thorazine] General Stated Complaint: Abd Prob GRISELDA: 3 Review of Systems <Shade Saunders MD - Last Filed: 08/30/18 07:17> Review of Systems 6 systems reviewed and otherwise negative Exam <Shade Saunders MD - Last Filed: 08/30/18 07:17> Narrative Exam Narrative: GEN: awake, alert, oriented 3. Pleasant, well groomed, interactive. HEAD: Normocephalic, atraumatic ENT: Mucous membranes moist, oropharynx unremarkable, External ear exam unremarkable EYES: PERRL, EOMI NECK: Full ROM, no BLU, no menigismus CHEST/RESP: Nontender, clear to auscultation bilateral, no wheeze/rhonchi/rales CARDIOVASCULAR: Irregularly irregular, rate approximately 80, no rub sharri. 2+ Rad pulse bilateral ABDOMEN: Soft, distended, mildly tender to palpate, no mass. +Bowel sounds EXT: Full ROM, bilateral 1+ edema, no rash Skin: Question slight jaundice Neuro: Grossly normal neurologic exam, conversant, interactive. Psych: Speech fluent, thoughts congruent, affect normal Course <Shade Saunders MD - Last Filed: 08/30/18 07:17> Vital Signs Temperature 37.3 C 08/30/18 06:28 Pulse 107 H 08/30/18 06:28 Respiratory Rate 30 H 08/30/18 06:28 Pulse Oximetry 92 L 08/30/18 06:28 Temperature 37.3 C 08/30/18 06:28 Temperature Source Temporal Artery Scan 08/30/18 06:28 Pulse 107 H 08/30/18 06:28 Respiratory Rate 30 H 08/30/18 06:28 Respiratory Effort 08/30/18 06:28 Pulse Oximetry 92 L 08/30/18 06:28 Oxygen Delivery Method Room Air 08/30/18 06:28 Oxygen Flow Rate 0 08/30/18 06:28 Pain Level 8 08/30/18 06:28 <Vadim Hernandez MD - Last Filed: 08/30/18 14:02> Critical Care Time: Yes Total Critical Care Time: 75 Attestation: I spent greater than 75min addressing this patients immediate life threats Sign Out <Shade Saunders MD - Last Filed: 08/30/18 07:17> Sign Out Data: Sign Out Comment: Followup diagnostics: labs,XR,CT Last updated by Shade Saunders MD at 08/30/18 07:07
[2018-08-30 07:02] LABS: Abs Immature Grans 0.04 k/cumm (0.0-0.09); Absolute Basophil Count 0.02 k/cumm (0.0-0.2); Absolute Lymphocyte Count 0.42 k/cumm (1.2-3.4); Absolute Monocyte Count 0.61 k/cumm (0.11-0.7); Basophils % 0.1; Eosinophils % 0.1; HCT 44.5 % (36.0-46.0); HGB 14.2 g/dL (12.0-15.5); Immature Grans % 0.2; Lymphocytes % 2.2; Mean Corp. HGB Concentration 31.9 g/dL (32.0-36.0); Mean Corpuscular Hemoglobin 33.9 pg (27.0-33.0); Mean Corpuscular Volume 106.2 fL (80-95); Mean Platelet Volume 11.1 fL (8.0-11.0); Monocytes % 3.2; Neutrophils % 94.2; Platelet Count 139 x1000/uL (130-400); RBC 4.19 m/cumm (4.00-5.20); RBC Distribution Width 13.6 % (11.7-14.6); White Blood Cell Count 19.21 k/cumm (4.4-10.8)
[2018-08-30 07:08] LABS: Absolute Eosinophil Count 0.02 k/cumm (0.0-0.7)
[2018-08-30] MEDS: Normal Saline 1,000 ML 125 ML IV (07:15)
[2018-08-30] MEDS: Ondansetron 4 MG/2 ML VIAL IVP (07:15)
[2018-08-30 07:19] LABS: ALT 319 U/L (12-78); AST 277 U/L (15-37); Albumin 2.8 g/dL (3.4-5.0); Alkaline Phosphatase 369 U/L (46-116); Anion Gap 8.4 mmol/L (3-11); BUN 16 mg/dL (7-18); Bilirubin, Total 4.5 mg/dL (0.2-1.0); CO2 33.6 mmol/L (21.0-32.0); CREATININE 1.07 mg/dL (0.55-1.02); Calcium 8.6 mg/dL (8.5-10.1); Chloride 97 mmol/L (98-107); Estimated GFR 51.79 (mL/min/1.73m2); Glucose 130 mg/dL (70-100); Potassium 3.1 mmol/L (3.5-5.1); Sodium 139 mmol/L (136-145); Total Protein 5.9 g/dL (6.4-8.2); Troponin I 0.02 ng/mL (0.00-0.06)
[2018-08-30] MEDS: Omnipaque 350 MG/ML 100 ML BTL IV (07:48)
[2018-08-30] MEDS: Normal Saline 500 ML 1000 ML IV (08:00)
[2018-08-30 08:16] LABS: Bilirubin Large (Negative); Blood Negative (Negative); Clarity Sl Cloudy; Glucose Negative (Negative); Ketones Trace mg/dL (Negative); Leukocyte Esterase Small (Negative); Nitrite Positive (Negative); Specific Gravity 1.015 (1.005-1.025); Urobilinogen >=8.0 EU/dL (Up TO 0.2)
[2018-08-30 08:26] LABS: Bacteria Many HPF (Negative); C & S Indicated? Yes; Casts Negative LPF (Negative); Crystals Negative HPF (Negative); Epithelial Cells Few HPF (Negative); Mucus Negative (Negative); RBC Negative (0-2); WBC >50 HPF (0-5)
[2018-08-30] MEDS: POTASSIUM CHLORIDE 20 MEQ/100 ML BAG 50 MEQ IVPB (08:57)
[2018-08-30 09:28] LABS: Lactate-non-spesis 2.2 mmol/L (0.6-1.4)
--- NOTE | 2018-08-30 09:55 | DI.VRAD_ITS ---
EXAM: XR Chest, 2 Views EXAM DATE/TIME: 08/30/2018 6:51 AM CLINICAL HISTORY: 62 years old, female; Signs and symptoms; Cough and other: Abdominal pain and nausea TECHNIQUE: XR of the chest, 2 views. COMPARISON: [place] CHEST 2 VIEWS PA,LAT 08/28/2017 6:39 PM FINDINGS: Lungs: Mild pulmonary vascular congestion. Lung bases partially obscured by patient body habitus. No focal consolidation. Pleural space: Stable left apical and left lower posterior pleural thickening. Heart/Mediastinum: Stable cardiomegaly. Bones/joints: Unremarkable. IMPRESSION: 1. Mild pulmonary vascular congestion. 2. Stable left apical and left lower posterior pleural thickening. Dictated and Authenticated by: Evelyn Mcgregor MD. Ordering:ELSI SANDS MD
[2018-08-30] MEDS: Normal Saline 1,000 ML 1000 ML IV (10:00)
--- NOTE | 2018-08-30 10:17 | DI.VRAD_ITS ---
EXAM: CT Abdomen and Pelvis With Intravenous Contrast EXAM DATE/TIME: 08/30/2018 6:45 AM CLINICAL HISTORY: 62 years old, female; Signs and symptoms; Other: Abdominal bloating, distension TECHNIQUE: Axial computed tomography images of the abdomen and pelvis with intravenous contrast. All CT scans at this facility use at least one of these dose optimization techniques: automated exposure control; mA and/or kV adjustment per patient size (includes targeted exams where dose is matched to clinical indication); or iterative reconstruction. Coronal and sagittal reformatted images were created and reviewed. CONTRAST: 125 ml of omnipque 350 administered intravenously. COMPARISON: CT ABD PELVIS WITH CONTRAST 11/28/2016 3:03 PM FINDINGS: Lower thorax: Stable left suspected loculated pleural effusion with adjacent mild atelectasis. Minimal right dependent atelectasis. ABDOMEN: Liver: Normal. No mass. Gallbladder and bile ducts: Normal. No calcified stones. No ductal dilation. Pancreas: Normal. No ductal dilation. Spleen: Normal. No splenomegaly. Adrenals: Normal. No mass. Kidneys and ureters: Normal. No hydronephrosis. Stomach and bowel: Gaseous distention of multiple bowel loops within the pannus. No evidence of bowel obstruction. Small ventral hernia containing single small bowel loop, hernia measuring 12 mm. No proximal obstruction. Bowel anastomosis right pelvis. Previous gastric bypass. Appendix: No evidence of appendicitis. PELVIS: Bladder: Unremarkable as visualized. Reproductive: Unremarkable as visualized. ABDOMEN and PELVIS: Intraperitoneal space: Normal. No free air. No significant fluid collection. Bones/joints: No acute fracture. No dislocation. Soft tissues: Unremarkable. Vasculature: Normal. No abdominal aortic aneurysm. Lymph nodes: Normal. No enlarged lymph nodes. IMPRESSION: 1. Stable left suspected loculated pleural effusion with adjacent mild atelectasis. Minimal right dependent atelectasis. 2. Gaseous distention of multiple bowel loops within the pannus. No evidence of bowel obstruction. 3. Small ventral hernia left abdomen containing single small bowel loop, hernia measuring 12 mm. No proximal obstruction. Dictated and Authenticated by: Evelyn Mcgregor MD. Ordering:ELSI SANDS MD
[2018-08-30] MEDS: MetroNIDAZOLE 500 MG/100 ML BAG 100 MG IVPB (11:20)
[2018-08-30] MEDS: AZTREONAM 2,000 MG in Normal Saline 100 ML 200 MG IVPB (13:20)
[2018-08-30] MEDS: Lactated Ringers 1,000 ML 150 ML IV (13:30)
== END 2018-08-30 14:13 | disposition short-term general hospital (02) ==
PROVIDERS: Emergency Medicine; Emergency Provider Student in an Organized Health Care Education/Training Program; PCP Family Medicine
DX: A41.9 Sepsis, unspecified organism (principal); R74.0 Nonspecific elevation of levels of transaminase and lactic acid dehydrogenase [LDH]; R17 Unspecified jaundice; R14.0 Abdominal distension (gaseous); I48.91 Unspecified atrial fibrillation; J44.9 Chronic obstructive pulmonary disease, unspecified; Z87.891 Personal history of nicotine dependence
CPT/HCPCS: 36415; 80053; 87077; 93005; 96361; 96365; 96366; 96367; 96368; 96375; 99291; 99292; 71046; 74177; 81003; 81015; 83605; 84484; 85025; 87086; 87186; 93010; J2405; J3480; J3490

== ENCOUNTER 2018-09-16 14:45 | Outpatient (REF) | payer MEDICAID, SELFPAY ==
[2018-09-16 17:33] LABS: HCT 47.8 % (36.0-46.0); Mean Corp. HGB Concentration 31.4 g/dL (32.0-36.0); Mean Corpuscular Volume 105.1 fL (80-95); Mean Platelet Volume 11.8 fL (8.0-11.0); Platelet Count 311 x1000/uL (130-400); RBC 4.55 m/cumm (4.00-5.20); RBC Distribution Width 13.7 % (11.7-14.6); White Blood Cell Count 11.43 k/cumm (4.4-10.8)
[2018-09-16 17:42] LABS: ALT 38 U/L (12-78); AST 34 U/L (15-37); Albumin 3.8 g/dL (3.4-5.0); Alkaline Phosphatase 212 U/L (46-116); Anion Gap 12.4 mmol/L (3-11); BUN 27 mg/dL (7-18); Bilirubin, Total 0.9 mg/dL (0.2-1.0); CO2 22.6 mmol/L (21.0-32.0); Calcium 9.3 mg/dL (8.5-10.1); Chloride 97 mmol/L (98-107); Glucose 107 mg/dL (70-100); Potassium 4.9 mmol/L (3.5-5.1); Sodium 132 mmol/L (136-145); Total Protein 7.5 g/dL (6.4-8.2)
== END 2018-09-16 15:05 ==
LOC: NCHCN 14:45
PROVIDERS: PCP Family Medicine; Visit Provider Family Medicine
DX: R33.9 Retention of urine, unspecified (principal); K83.09 Other cholangitis
CPT/HCPCS: 80053; 85027

== ENCOUNTER 2018-09-17 22:51 | Inpatient (IN) | payer MEDICAID, SELFPAY ==
[2018-09-17] VITALS (11 sets, daily range): BP systolic 78–92; BP diastolic 40–58; PULSE 76–104; RESP 16–25; TEMP 37.1; O2SAT 86–100
--- NOTE | 2018-09-17 00:55 | DI.CT_ITS ---
SYMPTOMS/DIAGNOSIS: ABD PAIN, BLOOD DRAINING FROM BILIARY TUBE ABDOMINAL AND PELVIC CT: The study was carried out without contrast enhancement. A biliary drainage catheter is noted in place and apparently has been positioned since the previous study. The catheter is well positioned with its tip in the transverse duodenum. Note is made of a chest wall fluid collection, stable when compared with the prior study which could represent a partial implant small complex pleural effusion. This also appears stable with the prior images. The liver is normal. The gallbladder is normal. There are no stones or ductal dilatation. The pancreas is normal. The spleen is normal. The adrenals are normal. There is nonobstructing bilateral nephrolithiasis. Note is made of distention of the colon to the level of the rectum. This being a nonspecific finding, however, the possibility of a colonic ileus and alternatively mild distention of the colon is suggested with note made of fluid throughout the colon consistent with diarrhea. The small bowel is not dilatation. A loop of small bowel extends into the infraumbilical right parasagittal ventral hernia but there is no evidence of small bowel obstruction. The appendix is unremarkable. The bladder contains a Gao catheter is otherwise unremarkable. The reproductive organs as visualized are unremarkable. No acute bony abnormality is seen. The soft tissues are unremarkable. There is no aortic aneurysm. There is no lymphadenopathy. SUMMARY: Dilatation of the colon is noted to the level of the rectum. There is scattered gas and fluid in the colon and the findings could indicate diarrhea. These findings to be correlated with the patient's clinical status.
--- NOTE | 2018-09-17 23:09 | ED.GENADUL_ITS ---
Discharge Plan Disposition Patient Disposition: [facility] INPATIENT Condition: Fair Discharge Details Chief Complaint: Abd Prob Clinical Impression: Acute kidney injury, Dehydration, History of biliary T-tube placement Primary Care Provider: Sera Gutiérrez ED Provider: Ishan Hope [facility] and New Rx's Prescriptions: No Action sertraline [Zoloft] 50 MG tablet 100 mg PO DAILY RF: 0 clonazepam 1 MG tablet,disintegrating 2 tab PO HS RF: 0 loperamide [Imodium A-D] 2 MG capsule 2 mg PO QID PRN (Reason: Diarrhea) RF: 0 metoprolol succinate 50 MG tablet extended release 24 hr 50 mg PO BID RF: 0 oxycodone-acetaminophen [Percocet] 1 EACH tablet 1 ea PO QID RF: 0 furosemide 20 MG tablet 20 mg PO BID RF: 0 methylphenidate HCl 10 MG tablet 10 mg PO DAILY RF: 0 nystatin (bulk) 1 EACH powder 1 ea Miscellaneous TID RF: 0 ipratropium-albuterol 3 ML solution for nebulization 3 ml Inhalation QID RF: 0 acetaminophen 500 MG tablet 1,000 mg PO Q6H PRN RF: 0 naloxone [Narcan] 4 MG spray,non-aerosol 4 mg NS as directed 1 Days Qty: 2 RF: 0 lorazepam 0.5 MG tablet 0.5 mg PO QID PRNRF: 0 pantoprazole 40 MG tablet,delayed release (DR/EC) 40 mg PO DAILY RF: 0 albuterol sulfate [ProAir HFA] 200 PUFF HFA aerosol inhaler 2 puff Inhalation .Q4-6H PRN PRNRF: 0 cyclobenzaprine 10 MG tablet 10 mg PO BID RF: 0 calcium carbonate-vitamin D3 1 EACH tablet 2 tab PO BID RF: 0 ferrous sulfate 325 MG tablet 325 mg PO DAILY RF: 0 dicyclomine 10 MG capsule 10 mg PO BID RF: 0 loratadine 10 MG tablet 10 mg PO DAILY PRNRF: 0 fluticasone-salmeterol [Advair HFA] 60 PUFF HFA aerosol inhaler 2 puff Inhalation BID RF: 0 anastrozole [Arimidex] 1 MG tablet 1 mg PO DAILY RF: 0 glucosamine sulfate 2KCl 1,000 MG tablet 500 mg PO BID RF: 0 cyanocobalamin (vitamin B-12) [Vitamin B-12] 100 MCG tablet 100 mcg PO DAILY RF: 0 sennosides-docusate sodium [Senna-S] 1 EACH tablet 2 ea PO BID RF: 0 ascorbic acid (vitamin C) [Vitamin C] 500 MG tablet 500 mg PO BID RF: 0 nitroglycerin [Nitrostat] 0.4 MG tablet, sublingual 0.4 mg Sublingual DIRECTED PRNRF: 0 ergocalciferol (vitamin D2) [Vitamin D2] 50,000 UNITS capsule 50,000 units PO DIRECTED RF: 0 zolpidem 10 MG tablet 10 mg PO HS PRN PRNRF: 0 spironolactone 25 MG tablet 25 mg PO DAILY Qty: 30 RF: 0 azithromycin 250 MG tablet 250 mg PO DAILY Qty: 4 RF: 0 Medical Decision Making Patient's blood pressure noted to be in about the 90s. She states that a little low for her. She is not febrile. Her abdomen appears benign and nontender to palpation. There is blood in the tube and bag that is draining her biliary duct. She has a Gao in place and the urine looks clear. IV is established and fluids started. Laboratory studies sent. CT scan of the abdomen pelvis ordered. Call placed to [facility] to speak to GI there. Patient WBC is normal. Patient's hemoglobin is normal. Chemistries show evidence of [place], likely related to dehydration due to decreased oral intake. She also has some increased LFTs including the bilirubin which is up to 5. She remains afebrile here. Blood pressure is a little soft in the 90s but I think it is related to dehydration from decreased p.o. intake. Case is discussed with GI fellow, Dr. Taylor at [facility]. No need for emergent intervention tonight unless CT scan shows large hematoma or bleeding. She wishes to be contacted again in the morning as the tube may need to be changed but since it is not emergent patient does not need to be transferred tonight as [facility] is full. Patient CT scan shows that the biliary drainage catheter is in correct position. Patient otherwise has essentially stable study. She does have some colonic dilatation but no obstruction. Case discussed with hospitalist, Dr. Uribe. Patient has received a liter of LR as a bolus. We will continue LR overnight. She will be admitted to [facility] for hydration. Hospitalist to contact GI at [facility] in the morning. Medical Records Medical records reviewed: Yes I reviewed the patient's medical records. Lab Data Lab results reviewed: Yes I reviewed the patient's lab results. HPI General Mode of arrival: EMS . Date/Time Provider Initiated Documentation: 09/17/18 22:54 . Limitations to Documentation: no limitations . Information obtained by: patient, RN/MD and old records reviewed . HPI Narrative: Patient presents to ED by ambulance with blood draining from her biliary tube. Patient was here at the beginning of the month and transferred to [facility] for cholangitis. She ultimately had a biliary tube placed. She was discharged about a week ago. She had been doing fine until yesterday she started to notice some blood in the drain. It subsequently has become all blood. She is complaining of some nausea and abdominal discomfort. Home health saw her this evening and sent here for evaluation. She has not had fever that she is aware of. She has been drinking but not eating. She denies chest pain or shortness of breath. She does not think there has been any movement or tugging to the tube. Related Data Home Medications Medication Instructions Recorded Confirmed lorazepam 0.5 mg PO QID PRN 03/09/13 08/30/18 pantoprazole 40 mg PO DAILY 03/09/13 08/30/18 clonazepam 2 tab PO HS 10/03/14 08/30/18 sertraline [Zoloft] 100 mg PO DAILY tab-cap 10/03/14 08/30/18 albuterol sulfate [ProAir HFA] 2 puff INHALATION .Q4-6H PRN PRN 10/26/14 calcium carbonate-vitamin D3 2 tab PO BID 10/26/14 08/30/18 cyclobenzaprine 10 mg PO BID 10/26/14 08/30/18 dicyclomine 10 mg PO BID 10/26/14 08/30/18 ferrous sulfate 325 mg PO DAILY 10/26/14 08/30/18 fluticasone-salmeterol [Advair HFA] 2 puff INHALATION BID 10/26/14 08/30/18 loratadine 10 mg PO DAILY PRN 10/26/14 08/30/18 loperamide [Imodium A-D] 2 mg PO QID PRN 12/09/16 08/30/18 metoprolol succinate 50 mg PO BID 12/09/16 08/30/18 anastrozole [Arimidex] 1 mg PO DAILY 12/18/16 08/30/18 glucosamine sulfate 2KCl 500 mg PO BID 12/18/16 08/30/18 ascorbic acid (vitamin C) [Vitamin 500 mg PO BID 05/30/17 08/30/18 C] cyanocobalamin (vitamin B-12) 100 mcg PO DAILY 05/30/17 08/30/18 [Vitamin B-12] ergocalciferol (vitamin D2) 50,000 units PO DIRECTED 05/30/17 08/30/18 [Vitamin D2] nitroglycerin [Nitrostat] 0.4 mg SUBLINGUAL DIRECTED PRN 05/30/17 08/30/18 sennosides-docusate sodium 2 ea PO BID 05/30/17 08/30/18 [Senna-S] zolpidem 10 mg PO HS PRN PRN 05/30/17 08/30/18 spironolactone 25 mg PO DAILY #30 tab 08/30/17 08/30/18 acetaminophen 1,000 mg PO Q6H PRN tab-cap 02/12/18 08/30/18 furosemide 20 mg PO BID tab-cap 02/12/18 08/30/18 ipratropium-albuterol 3 ml INHALATION QID 02/12/18 08/30/18 methylphenidate HCl 10 mg PO DAILY 02/12/18 08/30/18 nystatin (bulk) 1 ea MISCELLANEOUS TID jad 02/12/18 08/30/18 oxycodone-acetaminophen [Percocet] 1 ea PO QID tab 02/12/18 08/30/18 naloxone [Narcan] 4 mg NS as directed 1 Days #2 spray 02/16/18 08/30/18 azithromycin 250 mg PO DAILY #4 tablet 04/26/18 08/30/18 Previous Rx's Medication Instructions Recorded spironolactone 25 mg PO DAILY #30 tab 08/30/17 naloxone [Narcan] 4 mg NS as directed 1 Days #2 spray 02/16/18 azithromycin 250 mg PO DAILY #4 tablet 04/26/18 Allergies Allergy/AdvReac Type Severity Reaction Status Date / Time haloperidol Allergy Severe seizure Unverified 09/18/18 02:28 cephalexin monohydrate Allergy Mild Unverified 09/18/18 02:28 [From Keflex] ciprofloxacin [From Cipro] Allergy Mild Hives Unverified 09/18/18 02:28 dextroamphetamine Allergy Unknown Unverified 09/18/18 02:28 doxylamine Allergy Unknown Unverified 09/18/18 02:28 eszopiclone [From Lunesta] Allergy Unknown Unverified 09/18/18 02:28 Penicillins Allergy Unknown Unverified 09/18/18 02:28 pseudoephedrine Allergy Unknown Unverified 09/18/18 02:28 Sulfa (Sulfonamide Allergy Unknown Unverified 09/18/18 02:28 Antibiotics) trazodone Allergy Unknown Unverified 09/18/18 02:28 venlafaxine HCl AdvReac Severe crazy Unverified 09/18/18 02:28 [From Effexor] dextromethorphan HBr AdvReac Intermediate muscle Unverified 09/18/18 02:28 [From NyQuil] twitch doxylamine succinate AdvReac Intermediate muscle Unverified 09/18/18 02:28 [From NyQuil] twitch omeprazole AdvReac Intermediate Diarrhea Unverified 09/18/18 02:28 pseudoephedrine HCl AdvReac Intermediate muscle Unverified 09/18/18 02:28 [From NyQuil] twitch chlorpromazine HCl AdvReac passes out Unverified 09/18/18 02:28 [From Thorazine] General Stated Complaint: Abd Prob GRISELDA: 2 Review of Systems Constitutional Denies chills, Denies fever(s) and Denies headache(s) Eyes Denies eye discharge and Denies eye pain ENT Denies otalgia, Denies facial pain, Denies headache(s) and Denies nasal congestion Cardiovascular Denies chest pain, Denies diaphoresis, Denies syncope, Reports edema and Denies dyspnea Respiratory Denies cough and Denies dyspnea Gastrointestinal Reports abdominal pain, Reports nausea and Denies vomiting Genitourinary Denies hematuria and Reports other (Gao is leaking) Musculoskeletal Reports back pain, Denies myalgias, Denies arthralgias and Denies numbness Integumentary/Breasts Denies rash Neurologic Denies abnormal speech, Denies syncope, Denies headache(s), Denies focal weakness and Denies numbness Exam Const General: cooperative and no acute distress Nutritional Appearance: obese morbidly obese Orientation: alert and oriented x3 HENMT Head: normocephalic and atraumatic Mouth: moist mucous membranes Eyes Sclera: sclerae normal Neck Neck: trachea midline and supple Resp Effort & Inspection: normal respiratory effort Auscultation: rhonchi (few scattered) Cardio Rate: regular rate Rhythm: regular rhythm Heart Sounds: S1 normal and S2 normal GI Inspection: other (bilirary tube exiting RUQ appears in tact) Palpation: soft, not firm and nontender Skin General skin exam: no rashes or lesions noted Neuro General: alert, oriented x3, no focal motor deficits and CN's II-XI intact bilaterally Extrem General: edema Laterality: bilateral Course Vital Signs Temperature 98.8 F 09/17/18 22:56 Pulse 76 09/17/18 22:56 Respiratory Rate 16 09/17/18 22:56 Blood Pressure 78/43 L 09/17/18 22:56 Pulse Oximetry 100 09/17/18 22:56 Temperature 98.8 F 09/17/18 22:56 Temperature Source Skin 09/17/18 22:56 Pulse 76 09/17/18 22:56 Respiratory Rate 16 09/17/18 22:56 Blood Pressure 92/58 L 09/17/18 23:05 Pulse Oximetry 100 09/17/18 22:56 Oxygen Delivery Method Nasal Cannula 09/17/18 22:56 Oxygen Flow Rate 2 09/17/18 22:56
[2018-09-17 23:38] LABS: Abs Immature Grans 0.01 k/cumm (0.0-0.09); Absolute Basophil Count 0.04 k/cumm (0.0-0.2); Absolute Eosinophil Count 0.18 k/cumm (0.0-0.7); Absolute Lymphocyte Count 0.57 k/cumm (1.2-3.4); Absolute Neutrophil Count 7.12 k/cumm (1.2-6.7); Basophils % 0.5; Eosinophils % 2.1; HCT 46.4 % (36.0-46.0); Immature Grans % 0.1; Lymphocytes % 6.6; Mean Corp. HGB Concentration 32.3 g/dL (32.0-36.0); Mean Corpuscular Hemoglobin 33.4 pg (27.0-33.0); Mean Corpuscular Volume 103.3 fL (80-95); Mean Platelet Volume 10.9 fL (8.0-11.0); Monocytes % 8.1; Neutrophils % 82.6; Platelet Count 246 x1000/uL (130-400); RBC 4.49 m/cumm (4.00-5.20); RBC Distribution Width 13.8 % (11.7-14.6); White Blood Cell Count 8.62 k/cumm (4.4-10.8)
[2018-09-17] MEDS: Lactated Ringers 1,000 ML 1000 ML IV (23:50)
[2018-09-17 23:54] LABS: ALT 50 U/L (12-78); AST 57 U/L (15-37); Albumin 3.3 g/dL (3.4-5.0); Alkaline Phosphatase 371 U/L (46-116); Anion Gap 11.3 mmol/L (3-11); BUN 29 mg/dL (7-18); Bilirubin, Total 5.3 mg/dL (0.2-1.0); CO2 25.7 mmol/L (21.0-32.0); CREATININE 1.49 mg/dL (0.55-1.02); Calcium 9.3 mg/dL (8.5-10.1); Chloride 97 mmol/L (98-107); Estimated GFR 35.34 (mL/min/1.73m2); Glucose 121 mg/dL (70-100); Lipase 95 U/L (73-393); Sodium 134 mmol/L (136-145); Total Protein 7.7 g/dL (6.4-8.2)
[2018-09-18] VITALS (31 sets, daily range): BP systolic 73–158; BP diastolic 33–118; PULSE 66–116; RESP 14–31; TEMP 37–38; O2SAT 96–100
[2018-09-18 00:32] LABS: INR 1.4 (1.0-3.5); PTT Activated 29.6 sec (21.0-31.4); Prothrombin Time 13.7 sec (9.3-10.8)
--- NOTE | 2018-09-18 01:20 | DI.VRAD_ITS ---
EXAM: CT Abdomen and Pelvis Without Intravenous Contrast EXAM DATE/TIME: 09/17/2018 11:52 PM CLINICAL HISTORY: 62 years old, female; Pain; Abdominal pain; Generalized; Prior surgery; Surgery date: 6+ months; Surgery type: Gastric bypass 1998; Patient HX: Blood in biliary tube, abdominal pain TECHNIQUE: Axial computed tomography images of the abdomen and pelvis without intravenous contrast. All CT scans at this facility use at least one of these dose optimization techniques: automated exposure control; mA and/or kV adjustment per patient size (includes targeted exams where dose is matched to clinical indication); or iterative reconstruction. Coronal and sagittal reformatted images were created and reviewed. COMPARISON: CT ABDOMEN PELVIS W 08/30/2018 9:16 AM FINDINGS: Tubes, catheters and devices: Percutaneous biliary drainage catheter in place which is new when compared with the prior study well-positioned with tip in transverse duodenum Lower thorax: Chest wall fluid collection stable when compared with the prior study potentially implant Small complex pleural effusion stable when compared with the prior study ABDOMEN: Liver: Normal. No mass. Gallbladder and bile ducts: Normal. No calcified stones. No ductal dilation. Pancreas: Normal. No ductal dilation. Spleen: Normal. No splenomegaly. Adrenals: Normal. No mass. Kidneys and ureters: Bilateral nonobstructing nephrolithiasis noted. Stomach and bowel: Colonic dilatation is noted to the level of the rectum which is a nonspecific finding. Findings may reflect a colonic ileus.alternatively, the mildly distended colon contains fluid throughout which suggests a diarrheal state. The small bowel is nondistended. A loop of small bowel extends into an infraumbilical right parasagittal ventral hernia but there is no evidence for small bowel obstruction Appendix: No evidence of appendicitis. PELVIS: Bladder: The urinary bladder contains a Gao catheter. Reproductive: Unremarkable as visualized. ABDOMEN and PELVIS: Intraperitoneal space: Normal. No free air. No significant fluid collection. Bones/joints: No acute fracture. No dislocation. Soft tissues: Unremarkable. Vasculature: Normal. No abdominal aortic aneurysm. Lymph nodes: Normal. No enlarged lymph nodes. IMPRESSION: Colonic dilatation is noted to the level of the rectum which is a nonspecific finding. Findings may reflect a colonic ileus.alternatively, the mildly distended colon contains fluid throughout which suggests a diarrheal state. Dictated and Authenticated by: Saeed Chavez MD. Ordering:SHARITA ROSARIO MD
[2018-09-18] MEDS: Lactated Ringers 1,000 ML 150 ML IV ×4 (01:44→23:07)
--- NOTE | 2018-09-18 02:57 | W.PM.HP.N ---
Date of service: 09/18/18 Time of Service: 02:58 Assessment and Plan (1) Hematobilia: Current visit: Yes Status: Acute monitor T tube output overnight, repeat CBC and CMP in the a.m. Day hospitalist to contact [facility] [place] to arrange transfer for T exchange and further evaluation; possible further imaging of biliary tract. Given her hx of prior PUD it would not be unreasonable to evaluate her for duodenal ulcer given that her T tube tip is located in the duodenum. Patient is not currently on a PPI or H2 trae. I will initiate protonix History of Present Illness Chief Complaint: blood draining from biliary tube Narrative: 62 yr old female w/ PMH of ascending cholangitis (admitted to [facility] 08/30/2018 through 09/09/2018 for septic shock d/t ascending cholangitis and UTI, sent home on Cipro and Flagyl through 09/15/2018 after having placement of biliary drain also PMH COPD, pulmonary hypertension, severe TR, breast CA, CAD, obesity, GERD, depression, STACEY. She present to the ER at [facility] w/ c/o of blood draining from her biliary tube, decreased appetite, poor oral intake, nausea w/out vomiting, and abdominal pain. Patient seen in the ER by Dr. Hope and workup included labs and CT of her abdomen and pelvis. CT reportedly showed the biliary tube to be in proper placement w/out hematoma or abscess w/ tip in transverse duodenum. Labs failed to show a leukocytosis and no anemia, but elevated BUN and creatinine of 29 and 1.49 and elevated LFT's w/ total bilirubin of 5.3, AST 57, alkaline phosphatase of 371 and elevated protime of 13.7/INR 1.4. Note that these labs represent a worsening compared to her discharge labs from [facility] on 09/08/2018 when her total bilirubiin was 1.0 and direct 0.5, and alkaline phosphatase was 229. Dr. Hope spoke w/ [facility] utilization supervisor gastroenterology fellow, Dr. Yaima Taylor who indicated to Dr. Hope that CT was indicated to look for migration of the biliary tube and that they ([facility] did not have any beds tonight and saw no need for urgent transfer but patient should be admitted here for iv fluid hydration, monitoring of blood loss from the biliary tube and arrange transfer in the a.m. for IR biliary tube replacement. As the patient had completed all of her antibiotic treatment for cholangitis and there was no evidence of recurrent infection (i.e. patient is afebrile, no leukocytosis and no acute findings on her CT scan) they did not recommend antibiotics at this time. Review of Systems Review of Systems All systems reviewed & are unremarkable except as noted in HPI and below Meds Home Medications Medication Instructions Recorded Confirmed Type lorazepam 0.5 mg PO QID PRN 03/09/13 09/18/18 History pantoprazole 40 mg PO DAILY 03/09/13 09/18/18 History clonazepam 2 tab PO HS 10/03/14 09/18/18 History sertraline [Zoloft] 100 mg PO DAILY tab-cap 10/03/14 09/18/18 History albuterol sulfate [ProAir HFA] 2 puff INHALATION .Q4-6H PRN PRN 10/26/14 09/18/18 History calcium carbonate-vitamin D3 2 tab PO BID 10/26/14 09/18/18 History cyclobenzaprine 10 mg PO BID 10/26/14 09/18/18 History dicyclomine 10 mg PO BID 10/26/14 09/18/18 History ferrous sulfate 325 mg PO DAILY 10/26/14 09/18/18 History fluticasone-salmeterol [Advair HFA] 2 puff INHALATION BID 10/26/14 09/18/18 History loratadine 10 mg PO DAILY PRN 10/26/14 09/18/18 History loperamide [Imodium A-D] 2 mg PO QID PRN 12/09/16 09/18/18 History anastrozole [Arimidex] 1 mg PO DAILY 12/18/16 09/18/18 History glucosamine sulfate 2KCl 500 mg PO BID 12/18/16 09/18/18 History ascorbic acid (vitamin C) [Vitamin 500 mg PO BID 05/30/17 09/18/18 History C] cyanocobalamin (vitamin B-12) 100 mcg PO DAILY 05/30/17 09/18/18 History [Vitamin B-12] ergocalciferol (vitamin D2) 50,000 units PO DIRECTED 05/30/17 09/18/18 History [Vitamin D2] nitroglycerin [Nitrostat] 0.4 mg SUBLINGUAL DIRECTED PRN 05/30/17 09/18/18 History sennosides-docusate sodium 2 ea PO BID 05/30/17 09/18/18 History [Senna-S] zolpidem 10 mg PO HS PRN PRN 05/30/17 09/18/18 History acetaminophen 1,000 mg PO Q6H PRN tab-cap 02/12/18 09/18/18 History ipratropium-albuterol 3 ml INHALATION QID 02/12/18 09/18/18 History methylphenidate HCl 10 mg PO DAILY 02/12/18 09/18/18 History nystatin (bulk) 1 ea MISCELLANEOUS TID jad 02/12/18 09/18/18 History oxycodone-acetaminophen [Percocet] 1 ea PO QID tab 02/12/18 09/18/18 History naloxone [Narcan] 4 mg NS as directed 1 Days #2 spray 02/16/18 09/18/18 Rx metoprolol tartrate 25 mg PO TID 09/18/18 09/18/18 History Allergies Allergy/AdvReac Type Severity Reaction Status Date / Time haloperidol Allergy Severe seizure Unverified 09/18/18 02:28 cephalexin monohydrate Allergy Mild Unverified 09/18/18 02:28 [From Keflex] ciprofloxacin [From Cipro] Allergy Mild Hives Unverified 09/18/18 02:28 dextroamphetamine Allergy Unknown Unverified 09/18/18 02:28 doxylamine Allergy Unknown Unverified 09/18/18 02:28 eszopiclone [From Lunesta] Allergy Unknown Unverified 09/18/18 02:28 Penicillins Allergy Unknown Unverified 09/18/18 02:28 pseudoephedrine Allergy Unknown Unverified 09/18/18 02:28 Sulfa (Sulfonamide Allergy Unknown Unverified 09/18/18 02:28 Antibiotics) trazodone Allergy Unknown Unverified 09/18/18 02:28 venlafaxine HCl AdvReac Severe crazy Unverified 09/18/18 02:28 [From Effexor] dextromethorphan HBr AdvReac Intermediate muscle Unverified 09/18/18 02:28 [From NyQuil] twitch doxylamine succinate AdvReac Intermediate muscle Unverified 09/18/18 02:28 [From NyQuil] twitch omeprazole AdvReac Intermediate Diarrhea Unverified 09/18/18 02:28 pseudoephedrine HCl AdvReac Intermediate muscle Unverified 09/18/18 02:28 [From NyQuil] twitch chlorpromazine HCl AdvReac passes out Unverified 09/18/18 02:28 [From Thorazine] Exam Const General: cooperative and ill appearing chronically Nutritional Appearance: overweight Orientation: alert, awake and oriented x3 Eyes General: appearance normal, both eyes and all related structures Alignment and Position: alignment normal Periorbital: periorbital findings normal Eyelids: eyelids normal Conjunctivae: conjunctivae normal Sclera: sclerae normal Cornea: corneas normal EOM: EOM intact bilaterally Neck Neck: normal visual inspection, full ROM, no lymphadenopathy and trachea midline Carotids: normal carotid upstroke Lymphatic: no lymphadenopathy noted and other (scar over anterior trachea base c/w prior tracheostomy) Resp Effort & Inspection: normal respiratory effort and able to speak in complete sentences Auscultation: clear to auscultation bilaterally Cardio Jugular venous pressure: no JVD Palpation: normal PMI Rate: regular rate Rhythm: abnormal rhythm irregularly irregular Bruits: no abdominal aortic bruits and no carotid bruits Pulses: normal peripheral pulses GI Inspection: normal to inspection, obesity and scar (over midline c/w prior laparotomy) Palpation: soft and no hepatosplenomegaly Rectal Exam - female: deferred Other: T tube draining sanguine dark bloody fluid Neuro General: alert, awake, oriented x3 and no focal motor deficits Cognition: normal cognition Speech: speech normal Motor: muscle tone normal throughout, strength 5/5 throughout and no movement abnormalities noted Sensory Exam: no sensory deficits noted Extrem General: no pedal edema Right lower extremity: knee Details: tenderness and swelling and ankle Details: tenderness and swelling Left lower extremity: knee Details: abnormal to inspection, tenderness and swelling and ankle Details: abnormal to inspection, tenderness and swelling Psych Appearance: grossly normal Mental Status: mental status grossly normal Speech and Movement: speech and movement normal Mood: congruent mood Affect: normal affect Attitude: cooperative Thought Process: normal Thought Content: normal Insight: fair Judgment: fair (patient states that she does not want to go back to [facility] because she does not like it there but does not seem to understand the need to exchange her biliary tube) Results Imaging Abdomen CT scan report/results: report reviewed (IMPRESSION: Colonic dilatation is noted to the level of the rectum which is a nonspecific finding. Findings may reflect a colonic ileus.alternatively, the mildly distended colon contains fluid throughout which suggests a diarrheal state. Dictated and Authenticated by: Saeed Chavez MD.) Labs : 09/17/18 23:17 09/17/18 23:17 Laboratory Results - last 24 hr 09/17/18 09/17/18 09/17/18 23:17 23:17 23:17 WBC 8.62 RBC 4.49 Hgb 15.0 Hct 46.4 H MCV 103.3 H MCH 33.4 H MCHC 32.3 RDW 13.8 Plt Count 246 MPV 10.9 Immature Gran % 0.1 Neutrophils % 82.6 Lymphocytes % 6.6 Monocytes % 8.1 Eosinophils % 2.1 Basophils % 0.5 Absolute Neutrophils 7.12 H Absolute Lymphocytes 0.57 L Absolute Monocytes 0.70 Absolute Eosinophils 0.18 Absolute Basophils 0.04 PT INR APTT Sodium 134 L Potassium 4.0 Chloride 97 L Carbon Dioxide 25.7 Anion Gap 11.3 H BUN 29 H Creatinine 1.49 H Estimated GFR/1.73 m2 35.34 Glucose 121 H Calcium 9.3 Total Bilirubin 5.3 H AST 57 H ALT 50 Alkaline Phosphatase 371 H Total Protein 7.7 Albumin 3.3 L Lipase 95 Patient ABO/Rh O Positive Antibody Screen Negative 09/17/18 23:17 WBC RBC Hgb Hct MCV MCH MCHC RDW Plt Count MPV Immature Gran % Neutrophils % Lymphocytes % Monocytes % Eosinophils % Basophils % Absolute Neutrophils Absolute Lymphocytes Absolute Monocytes Absolute Eosinophils Absolute Basophils PT 13.7 H INR 1.4 APTT 29.6 Sodium Potassium Chloride Carbon Dioxide Anion Gap BUN Creatinine Estimated GFR/1.73 m2 Glucose Calcium Total Bilirubin AST ALT Alkaline Phosphatase Total Protein Albumin Lipase Patient ABO/Rh Antibody Screen Last Vital Signs Temp 37.1 C 09/17/18 22:56 Pulse 85 09/18/18 01:02 Resp 22 09/18/18 01:10 BP 135/107 H 09/18/18 01:02 Pulse Ox 99 09/18/18 01:10
--- NOTE | 2018-09-18 03:01 | HPE_ITS ---
Date of service: 09/18/18 Time of Service: 02:58 Assessment and Plan (1) Hematobilia: Current visit: Yes Status: Acute monitor T tube output overnight, repeat CBC and CMP in the a.m. Day hospitalist to contact [facility] gastroenterology to arrange transfer for T exchange and further evaluation; possible further imaging of biliary tract. Given her hx of prior PUD it would not be unreasonable to evaluate her for duodenal ulcer given that her T tube tip is located in the duodenum. Patient is not currently on a PPI or H2 trae. I will initiate protonix History of Present Illness Chief Complaint: blood draining from biliary tube Narrative: 62 yr old female w/ PMH of ascending cholangitis (admitted to [facility] through 09/09/2018 for septic shock d/t ascending cholangitis and UTI, sent home on Cipro and Flagyl through 09/15/2018 after having placement of biliary drain also PMH COPD, pulmonary hypertension, severe TR, breast CA, CAD, obesity, GERD, depression, STACEY. She present to the ER at [facility] w/ c/o of blood draining from her biliary tube, decreased appetite, poor oral intake, nausea w/ out vomiting, and abdominal pain. Patient seen in the ER by Dr. Hope and workup included labs and CT of her abdomen and pelvis. CT reportedly showed the biliary tube to be in proper placement w/out hematoma or abscess w/ tip in transverse duodenum. Labs failed to show a leukocytosis and no anemia, but elevated BUN and creatinine of 29 and 1.49 and elevated LFT's w/ total bilirubin of 5.3, AST 57, alkaline phosphatase of 371 and elevated protime of 13.7/INR 1.4. Note that these labs represent a worsening compared to her discharge labs from [facility] on 09/08/2018 when her total bilirubiin was 1.0 and direct 0.5, and alkaline phosphatase was 229. Dr. Hope spoke w/ [facility] resolution specialist gastroenterology fellow, Dr. Yaima Taylor who indicated to Dr. Hope that CT was indicated to look for migration of the biliary tube and that they ([facility] did not have any beds tonight and saw no need for urgent transfer but patient should be admitted here for iv fluid hydration, monitoring of blood loss from the biliary tube and arrange transfer in the a.m. for IR biliary tube replacement. As the patient had completed all of her antibiotic treatment for cholangitis and there was no evidence of recurrent infection (i.e. patient is afebrile, no leukocytosis and no acute findings on her CT scan) they did not recommend antibiotics at this time. Review of Systems Review of Systems All systems reviewed & are unremarkable except as noted in HPI and below Meds Home Medications Medication Instructions Recorded Confirmed Type lorazepam 0.5 mg PO QID PRN 03/09/13 09/18/18 History pantoprazole 40 mg PO DAILY 03/09/13 09/18/18 History clonazepam 2 tab PO HS 10/03/14 09/18/18 History sertraline [Zoloft] 100 mg PO DAILY tab-cap 10/03/14 09/18/18 History albuterol sulfate [ProAir HFA] 2 puff INHALATION .Q4-6H PRN PRN 10/26/14 History calcium carbonate-vitamin D3 2 tab PO BID 10/26/14 09/18/18 History cyclobenzaprine 10 mg PO BID 10/26/14 09/18/18 History dicyclomine 10 mg PO BID 10/26/14 09/18/18 History ferrous sulfate 325 mg PO DAILY 10/26/14 09/18/18 History fluticasone-salmeterol [Advair HFA] 2 puff INHALATION BID 10/26/14 09/18/18 History loratadine 10 mg PO DAILY PRN 10/26/14 09/18/18 History loperamide [Imodium A-D] 2 mg PO QID PRN 12/09/16 09/18/18 History anastrozole [Arimidex] 1 mg PO DAILY 12/18/16 09/18/18 History glucosamine sulfate 2KCl 500 mg PO BID 12/18/16 09/18/18 History ascorbic acid (vitamin C) [Vitamin 500 mg PO BID 05/30/17 09/18/18 History C] cyanocobalamin (vitamin B-12) 100 mcg PO DAILY 05/30/17 09/18/18 History [Vitamin B-12] ergocalciferol (vitamin D2) 50,000 units PO DIRECTED 05/30/17 09/18/18 History [Vitamin D2] nitroglycerin [Nitrostat] 0.4 mg SUBLINGUAL DIRECTED PRN 05/30/17 09/18/18 History sennosides-docusate sodium 2 ea PO BID 05/30/17 09/18/18 History [Senna-S] zolpidem 10 mg PO HS PRN PRN 05/30/17 09/18/18 History acetaminophen 1,000 mg PO Q6H PRN tab-cap 02/12/18 09/18/18 History ipratropium-albuterol 3 ml INHALATION QID 02/12/18 09/18/18 History methylphenidate HCl 10 mg PO DAILY 02/12/18 09/18/18 History nystatin (bulk) 1 ea MISCELLANEOUS TID jad 02/12/18 09/18/18 History oxycodone-acetaminophen [Percocet] 1 ea PO QID tab 02/12/18 09/18/18 History naloxone [Narcan] 4 mg NS as directed 1 Days #2 spray 02/16/18 09/18/18 Rx metoprolol tartrate 25 mg PO TID 09/18/18 09/18/18 History Allergies Allergy/AdvReac Type Severity Reaction Status Date / Time haloperidol Allergy Severe seizure Unverified 09/18/18 02:28 cephalexin monohydrate Allergy Mild Unverified 09/18/18 02:28 [From Keflex] ciprofloxacin [From Cipro] Allergy Mild Hives Unverified 09/18/18 02:28 dextroamphetamine Allergy Unknown Unverified 09/18/18 02:28 doxylamine Allergy Unknown Unverified 09/18/18 02:28 eszopiclone [From Lunesta] Allergy Unknown Unverified 09/18/18 02:28 Penicillins Allergy Unknown Unverified 09/18/18 02:28 pseudoephedrine Allergy Unknown Unverified 09/18/18 02:28 Sulfa (Sulfonamide Allergy Unknown Unverified 09/18/18 02:28 Antibiotics) trazodone Allergy Unknown Unverified 09/18/18 02:28 venlafaxine HCl AdvReac Severe crazy Unverified 09/18/18 02:28 [From Effexor] dextromethorphan HBr AdvReac Intermediate muscle Unverified 09/18/18 02:28 [From NyQuil] twitch doxylamine succinate AdvReac Intermediate muscle Unverified 09/18/18 02:28 [From NyQuil] twitch omeprazole AdvReac Intermediate Diarrhea Unverified 09/18/18 02:28 pseudoephedrine HCl AdvReac Intermediate muscle Unverified 09/18/18 02:28 [From NyQuil] twitch chlorpromazine HCl AdvReac passes out Unverified 09/18/18 02:28 [From Thorazine] Exam Const General: cooperative and ill appearing chronically Nutritional Appearance: overweight Orientation: alert, awake and oriented x3 Eyes General: appearance normal, both eyes and all related structures Alignment and Position: alignment normal Periorbital: periorbital findings normal Eyelids: eyelids normal Conjunctivae: conjunctivae normal Sclera: sclerae normal Cornea: corneas normal EOM: EOM intact bilaterally Neck Neck: normal visual inspection, full ROM, no lymphadenopathy and trachea midline Carotids: normal carotid upstroke Lymphatic: no lymphadenopathy noted and other (scar over anterior trachea base c /w prior tracheostomy) Resp Effort & Inspection: normal respiratory effort and able to speak in complete sentences Auscultation: clear to auscultation bilaterally Cardio Jugular venous pressure: no JVD Palpation: normal PMI Rate: regular rate Rhythm: abnormal rhythm irregularly irregular Bruits: no abdominal aortic bruits and no carotid bruits Pulses: normal peripheral pulses GI Inspection: normal to inspection, obesity and scar (over midline c/w prior laparotomy) Palpation: soft and no hepatosplenomegaly Rectal Exam - female: deferred Other: T tube draining sanguine dark bloody fluid Neuro General: alert, awake, oriented x3 and no focal motor deficits Cognition: normal cognition Speech: speech normal Motor: muscle tone normal throughout, strength 5/5 throughout and no movement abnormalities noted Sensory Exam: no sensory deficits noted Extrem General: no pedal edema Right lower extremity: knee Details: tenderness and swelling and ankle Details: tenderness and swelling Left lower extremity: knee Details: abnormal to inspection, tenderness and swelling and ankle Details: abnormal to inspection, tenderness and swelling Psych Appearance: grossly normal Mental Status: mental status grossly normal Speech and Movement: speech and movement normal Mood: congruent mood Affect: normal affect Attitude: cooperative Thought Process: normal Thought Content: normal Insight: fair Judgment: fair (patient states that she does not want to go back to [facility] because she does not like it there but does not seem to understand the need to exchange her biliary tube) Results Imaging Abdomen CT scan report/results: report reviewed (IMPRESSION: Colonic dilatation is noted to the level of the rectum which is a nonspecific finding. Findings may reflect a colonic ileus.alternatively, the mildly distended colon contains fluid throughout which suggests a diarrheal state. Dictated and Authenticated by: Saeed Chavez MD.) Labs : 09/17/18 23:17 09/17/18 23:17 Laboratory Results - last 24 hr 09/17/18 09/17/18 09/17/18 23:17 23:17 23:17 WBC 8.62 RBC 4.49 Hgb 15.0 Hct 46.4 H MCV 103.3 H MCH 33.4 H MCHC 32.3 RDW 13.8 Plt Count 246 MPV 10.9 Immature Gran % 0.1 Neutrophils % 82.6 Lymphocytes % 6.6 Monocytes % 8.1 Eosinophils % 2.1 Basophils % 0.5 Absolute Neutrophils 7.12 H Absolute Lymphocytes 0.57 L Absolute Monocytes 0.70 Absolute Eosinophils 0.18 Absolute Basophils 0.04 PT INR APTT Sodium 134 L Potassium 4.0 Chloride 97 L Carbon Dioxide 25.7 Anion Gap 11.3 H BUN 29 H Creatinine 1.49 H Estimated GFR/1.73 m2 35.34 Glucose 121 H Calcium 9.3 Total Bilirubin 5.3 H AST 57 H ALT 50 Alkaline Phosphatase 371 H Total Protein 7.7 Albumin 3.3 L Lipase 95 Patient ABO/Rh O Positive Antibody Screen Negative 09/17/18 23:17 WBC RBC Hgb Hct MCV MCH MCHC RDW Plt Count MPV Immature Gran % Neutrophils % Lymphocytes % Monocytes % Eosinophils % Basophils % Absolute Neutrophils Absolute Lymphocytes Absolute Monocytes Absolute Eosinophils Absolute Basophils PT 13.7 H INR 1.4 APTT 29.6 Sodium Potassium Chloride Carbon Dioxide Anion Gap BUN Creatinine Estimated GFR/1.73 m2 Glucose Calcium Total Bilirubin AST ALT Alkaline Phosphatase Total Protein Albumin Lipase Patient ABO/Rh Antibody Screen Last Vital Signs Temp 37.1 C 09/17/18 22:56 Pulse 85 09/18/18 01:02 Resp 22 09/18/18 01:10 BP 135/107 H 09/18/18 01:02 Pulse Ox 99 09/18/18 01:10
[2018-09-18] MEDS: Phytonadione 10 MG/ML AMP SC (03:19)
[2018-09-18 07:59] LABS: Abs Immature Grans 0.01 k/cumm (0.0-0.09); Absolute Basophil Count 0.03 k/cumm (0.0-0.2); Absolute Eosinophil Count 0.11 k/cumm (0.0-0.7); Absolute Lymphocyte Count 0.44 k/cumm (1.2-3.4); Absolute Monocyte Count 0.49 k/cumm (0.11-0.7); Absolute Neutrophil Count 6.55 k/cumm (1.2-6.7); Basophils % 0.4; Eosinophils % 1.4; HCT 39.6 % (36.0-46.0); HGB 12.7 g/dL (12.0-15.5); Immature Grans % 0.1; Lymphocytes % 5.8; Mean Corp. HGB Concentration 32.1 g/dL (32.0-36.0); Mean Corpuscular Hemoglobin 33.2 pg (27.0-33.0); Mean Corpuscular Volume 103.7 fL (80-95); Mean Platelet Volume 11.4 fL (8.0-11.0); Monocytes % 6.4; Neutrophils % 85.9; Platelet Count 193 x1000/uL (130-400); RBC 3.82 m/cumm (4.00-5.20); RBC Distribution Width 13.8 % (11.7-14.6); White Blood Cell Count 7.63 k/cumm (4.4-10.8)
[2018-09-18 08:14] LABS: INR 1.4 (1.0-3.5); Prothrombin Time 13.7 sec (9.3-10.8)
[2018-09-18 08:21] LABS: ALT 41 U/L (12-78); AST 49 U/L (15-37); Albumin 2.7 g/dL (3.4-5.0); Alkaline Phosphatase 332 U/L (46-116); Anion Gap 11.1 mmol/L (3-11); BUN 23 mg/dL (7-18); Bilirubin, Total 4.6 mg/dL (0.2-1.0); CO2 23.9 mmol/L (21.0-32.0); CREATININE 0.97 mg/dL (0.55-1.02); Calcium 8.8 mg/dL (8.5-10.1); Chloride 101 mmol/L (98-107); Glucose 119 mg/dL (70-100); Magnesium 1.6 mg/dL (1.8-2.4); Potassium 3.4 mmol/L (3.5-5.1); Sodium 136 mmol/L (136-145); Total Protein 6.3 g/dL (6.4-8.2)
[2018-09-18] MEDS: Cyanocobalamin 100 MCG TABLET PO (09:19)
[2018-09-18] MEDS: Anastrozole 1 MG TAB PO (09:19)
[2018-09-18] MEDS: Normal Saline Flush 10 ML SYR IVP ×2 (09:20→20:22)
[2018-09-18] MEDS: Cyclobenzaprine 10 MG TAB PO ×2 (09:20→20:22)
[2018-09-18] MEDS: Metoprolol 25 MG TAB PO (09:20)
[2018-09-18] MEDS: Pantoprazole 40 MG VIAL IVP ×2 (09:21→20:22)
[2018-09-18] MEDS: oxyCODONE 5 mg/Acetaminophen 325 mg TAB 1 TAB PO ×2 (09:27→20:21)
--- NOTE | 2018-09-18 12:07 | PHARADMIT ---
Admission Pharmacy Clinical Review Code Status Full Code Current Weight Wgt- 116.4 kg Renally Cleared and Narrow Therapeutic Index Meds CrCl~ 49.1 mL/min Meds-OK QTc Value / Action Taken QTc-473 on 08/30/2018, Protonix, BP Control, Fever BP-96/60 Tmax- 37.1C Electrolytes reviewed Na- 136 K+3.4 Mag-1.6 DVT Prophylaxis Bleeding from biliaty T-TUBE, TEDS/SCDs Opiate Usage / Scheduled Bowel Regimen Ordered Yes Yes Plt/SCr for Heparin / Enoxaparin Plts- 193 SCr-0.97 INR for Warfarin INR-1.4 H/H stable, WBC/Bands H&H- 12.7/39.6 WBC- 7.63 Antibiotic appropriateness none Cultures and Sensitivities none Surgical ABX d/c within 24 hr na DM control / Insulin Dosing BG-119 Heart Failure (Check EF%) (TIM's, B-Block, Diuretics) Lopressor, NTG IV to PO Switch No Home Meds Reviewed Yes Home Meds Not Ordered vit-C, Bentyl, Vit-d 50,000u, Iron, Nystatin, Narcan, Ritalin, Glucos/Chondr, Ativan, Claritin, Imodium, Sertraline, Senna, Ambien Comments
--- NOTE | 2018-09-18 13:03 | PDOC.CMIN ---
- If Service Date Differs Date of service: 09/18/18 Time of Service: 13:03 Care Management Initial Assess REASON FOR HOSPITALIZATION:: Hematobilia PAST MEDICAL HISTORY/PAST SURGICAL HISTORY:: Morbid obesity, Depression, H/O DVD, DJD, H/O PSVT, Chronic back pain, Bilateral cataracts, Paroxysmal atrial fibrillation, Diastolic heart failure, (R) heart failure with reduced (R) ventricular function, STACEY PREVIOUS FUNCTIONAL STATUS/SOCIAL/FAMILY SUPPORTS:: Prema resides alone in [facility]. She has two sons whom do not reside locally. Prema states that she has a friend locally whom is supportive. Prema also statest aht she has someone int [facility] whom she pays privately once franko while and that she is very helpful. Prema does not drive, she depends on [facility] for transportation at baseline. CURRENT FUNCTIONAL STATUS:: Currently Prema is lying in bed when this sql report writer visits. She is finishing breakfast and is open to discussion. ADVANCE DIRECTIVES:: On file- arlene zelaya is agent. Ana Lane is alternate Has patient been provided with information about the portal?: Yes Did the patient sign up for the portal?: No CODE STATUS:: Full Code INSURANCE COVERAGE / FINANCIAL ISSUES:: Medicaid CURRENT HOME/COMMUNITY SERVICES/EQUIPMENT:: Currently Prema has home health - RN daily, OT 2x/week and [employer]'s 3x/week. Prema has a FWW, Commode, grab bars, electric w/c, shower bench, hospital bed, [employer], oxygen, CPAP, and nebulizer from [facility]. Prema states that the walker is broken, the commode does not have a bucket, the electric w/c is broken, and the hospital bed is broken. She states that her CM ADEBAYO Lara, is aware of the medical equipment needing to be fixed. PRIMARY CARE PHYSICIAN:: Dr. Gutiérrez POTENTIAL DISCHARGE NEEDS:: F/U appointment with PCP. Resumption of Home health services. Resumption of COA CM support. PATIENT/FAMILY EDUCATION NEEDS:: Review DC instructions, any limitations, and ongoing DC planning discussion. ANTICIPATED BARRIERS TO DISCHARGE:: None identified at this time. TRANSPORTATION:: Via [facility] vs. ambulance depending on functionality at time of DC. PLAN:: Prema will return home with continued home health RN/OT services, as well as [facility] supports. Prema states that she has a friend whom is helping her in the home. Discussed DC plans, Prema states that she would like to return home from her hospitalization, she states that she does not want to go to [facility] in regards to a negative experience there. Prema also states that she does not want male staff to wipe her after using the bathroom, which this sql report writer notified LIBRADO Vines, and [facility], of. Prema will transport via [facility] or ambulance depending on functionality at time of DC.
--- NOTE | 2018-09-18 14:13 | INITIAL_ITS ---
- If Service Date Differs Date of service: 09/18/18 Time of Service: 13:03 Care Management Initial Assess REASON FOR HOSPITALIZATION:: Hematobilia PAST MEDICAL HISTORY/PAST SURGICAL HISTORY:: Morbid obesity, Depression, H/O DVD , DJD, H/O PSVT, Chronic back pain, Bilateral cataracts, Paroxysmal atrial fibrillation, Diastolic heart failure, (R) heart failure with reduced (R) ventricular function, STACEY PREVIOUS FUNCTIONAL STATUS/SOCIAL/FAMILY SUPPORTS:: Prema resides alone in [facility]. She has two sons whom do not reside locally. Prema states that she has a friend locally whom is supportive. Prema also statest aht she has someone int [facility] whom she pays privately once franko while and that she is very helpful. Prema does not drive, she depends on [facility] for transportation at baseline. CURRENT FUNCTIONAL STATUS:: Currently Prema is lying in bed when this health technical writer visits. She is finishing breakfast and is open to discussion. ADVANCE DIRECTIVES:: On file- arlene zelaya is agent. Ana Lane is alternate Has patient been provided with information about the portal?: Yes Did the patient sign up for the portal?: No CODE STATUS:: Full Code INSURANCE COVERAGE / FINANCIAL ISSUES:: Medicaid CURRENT HOME/COMMUNITY SERVICES/EQUIPMENT:: Currently Prema has home health - RN daily, OT 2x/week and [employer] 3x/week. Prema has a FWW, Commode, grab bars, electric w/c, shower bench, hospital bed, Lifeline, oxygen, CPAP, and nebulizer from [facility]. Prema states that the walker is broken, the commode does not have a bucket, the electric w/c is broken, and the hospital bed is broken. She states that her CM ADEBAYO Lara, is aware of the medical equipment needing to be fixed. PRIMARY CARE PHYSICIAN:: Dr. Gutiérrez POTENTIAL DISCHARGE NEEDS:: F/U appointment with PCP. Resumption of Home health services. Resumption of COA CM support. PATIENT/FAMILY EDUCATION NEEDS:: Review DC instructions, any limitations, and ongoing DC planning discussion. ANTICIPATED BARRIERS TO DISCHARGE:: None identified at this time. TRANSPORTATION:: Via RCT vs. ambulance depending on functionality at time of DC. PLAN:: Prema will return home with continued home health RN/OT services, as well as COA supports. Prema states that she has a friend whom is helping her in the home. Discussed DC plans, Prema states that she would like to return home from her hospitalization, she states that she does not want to go to [facility] in regards to a negative experience there. Prema also states that she does not want male staff to wipe her after using the bathroom, which this health technical writer notified LIBRADO Vines, and KRISTY Gonzalez CC, of. Prema will transport via RCT or ambulance depending on functionality at time of DC.
[2018-09-18 14:24] LABS: HGB 12.4 g/dL (12.0-15.5)
[2018-09-18] MEDS: Potassium Chloride 20 MEQ TABCR 40 MEQ PO (20:21)
[2018-09-18] MEDS: clonazePAM 1 MG TAB 2 MG PO (22:57)
[2018-09-18] MEDS: Budesonide/Formoterol 160/4.5 6 GM 60 PUFF INH IH (23:01)
[2018-09-19] VITALS (8 sets, daily range): BP systolic 73–106; BP diastolic 46–68; PULSE 63–125; RESP 14–22; TEMP 37–37.5; O2SAT 93–100
[2018-09-19] MEDS: Normal Saline 500 ML IV (00:49)
[2018-09-19] MEDS: Lactated Ringers 1,000 ML 150 ML IV (06:52)
[2018-09-19 07:29] LABS: Abs Immature Grans 0.01 k/cumm (0.0-0.09); Absolute Basophil Count 0.03 k/cumm (0.0-0.2); Absolute Eosinophil Count 0.13 k/cumm (0.0-0.7); Absolute Lymphocyte Count 0.59 k/cumm (1.2-3.4); Absolute Monocyte Count 0.58 k/cumm (0.11-0.7); Absolute Neutrophil Count 3.56 k/cumm (1.2-6.7); Basophils % 0.6; Eosinophils % 2.7; HCT 35.8 % (36.0-46.0); HGB 10.9 g/dL (12.0-15.5); Immature Grans % 0.2; Mean Corp. HGB Concentration 30.4 g/dL (32.0-36.0); Mean Corpuscular Hemoglobin 32.4 pg (27.0-33.0); Mean Corpuscular Volume 106.5 fL (80-95); Mean Platelet Volume 11.1 fL (8.0-11.0); Monocytes % 11.8; Neutrophils % 72.7; Platelet Count 152 x1000/uL (130-400); RBC 3.36 m/cumm (4.00-5.20); RBC Distribution Width 14.1 % (11.7-14.6)
[2018-09-19 07:43] LABS: ALT 26 U/L (12-78); AST 22 U/L (15-37); Albumin 2.2 g/dL (3.4-5.0); Alkaline Phosphatase 223 U/L (46-116); Anion Gap 7.4 mmol/L (3-11); BUN 8 mg/dL (7-18); Bilirubin, Total 1.4 mg/dL (0.2-1.0); CO2 26.6 mmol/L (21.0-32.0); CREATININE 0.56 mg/dL (0.55-1.02); Chloride 107 mmol/L (98-107); Glucose 87 mg/dL (70-100); Potassium 3.8 mmol/L (3.5-5.1); Sodium 141 mmol/L (136-145); Total Protein 5.4 g/dL (6.4-8.2)
[2018-09-19] MEDS: Budesonide/Formoterol 160/4.5 6 GM 60 PUFF INH IH ×2 (08:10→20:13)
[2018-09-19] MEDS: Pantoprazole 40 MG VIAL IVP ×2 (10:22→20:14)
[2018-09-19] MEDS: Potassium Chloride 20 MEQ TABCR 40 MEQ PO ×2 (10:23→20:14)
[2018-09-19] MEDS: Normal Saline Flush 10 ML SYR IVP ×3 (10:23→20:13)
[2018-09-19] MEDS: Anastrozole 1 MG TAB PO (10:23)
[2018-09-19] MEDS: Cyanocobalamin 100 MCG TABLET PO (10:23)
[2018-09-19] MEDS: Cyclobenzaprine 10 MG TAB PO ×2 (10:33→20:14)
[2018-09-19] MEDS: oxyCODONE 5 mg/Acetaminophen 325 mg TAB 1 TAB PO ×3 (10:33→22:12)
--- NOTE | 2018-09-19 11:58 | DI.RAD_ITS ---
SYMPTOM/DIAGNOSIS: FEVER AP AND LATERAL CHEST: The exam is mildly limited by patient positioning. The heart is enlarged, unchanged. Left apical pleural thickening and underlying fibrotic changes are again noted. Small left and tiny right pleural effusions are seen. No focal infiltrate is identified. IMPRESSION: :Limited exam. Bilateral pleural effusions.
--- NOTE | 2018-09-19 12:32 | PDOC.CMPRO ---
- If Service Date Differs Date of service: 09/19/18 Time of Service: 12:32 Care Management Progress Note S/O Prema was hypotensive this morning with a low grade fever. Provider will reach out to [facility] to review, she was given IV fluid bolus and since her BP has normalized. Prema is not ready for discharge at this time. A:Prema is a 62 year old female admitted with Hematobilia, recent septic shock and prolonged stay at [facility] with T tube placement. Prema has several chronic health conditions paroxysmal atrial fib, diastolic heart failure and right sided heart failure with tricuspid regurgitation. P:Prema will return home with continued home health RN/OT services, as well as COA supports. Prema states that she has a friend whom is helping her in the home. Discussed DC plans, Prema states that she would like to return home from her hospitalization, she states that she does not want to go to [facility] in regards to a negative experience there. Prema also states that she does not want male staff to wipe her after using the bathroom, which this play writer notified LIBRADO Vines, and KRISTY Gonzalez CC, of. Prema will transport via RCT or ambulance depending on functionality at time of DC.
--- NOTE | 2018-09-19 12:36 | DI.VRAD_ITS ---
EXAM: XR Chest, 2 Views EXAM DATE/TIME: 09/19/2018 9:31 AM CLINICAL HISTORY: 62 years old, female; Signs and symptoms; Fever; Additional info: Best inspiration taken by patient. TECHNIQUE: XR of the chest, 2 views. COMPARISON: CR XR CHEST 2V PA LATERAL 08/30/2018 7:59 AM FINDINGS: Lungs: The pulmonary vascularity remains slightly prominent, unchanged from prior study. Pleural space: There is left pleural apical thickening. Trace right pleural effusion. Heart/Mediastinum: Cardiomegaly. Bones/joints: Unremarkable. Other findings: The patient is slightly lordotically positioned. IMPRESSION: Trace right pleural effusion. No change mild congestion. COMMENT: Preliminary interpretation is based on receipt of 2 image(s). A final report will be issued subsequently. Dictated and Authenticated by: Theresa Kim MD. Ordering:JASIEL LARSON MD
--- NOTE | 2018-09-19 12:42 | CMPROGNOTE_ITS ---
- If Service Date Differs Date of service: 09/19/18 Time of Service: 12:32 Care Management Progress Note S/O Prema was hypotensive this morning with a low grade fever. Provider will reach out to [facility] to review, she was given IV fluid bolus and since her BP has normalized. Prema is not ready for discharge at this time. A:Prema is a 62 year old female admitted with Hematobilia, recent septic shock and prolonged stay at [facility] with T tube placement. Prema has several chronic health conditions paroxysmal atrial fib, diastolic heart failure and right sided heart failure with tricuspid regurgitation. P:Prema will return home with continued home health RN/OT services, as well as COA supports. Prema states that she has a friend whom is helping her in the home. Discussed DC plans, Prema states that she would like to return home from her hospitalization, she states that she does not want to go to [facility] in regards to a negative experience there. Prema also states that she does not want male staff to wipe her after using the bathroom, which this leader writer notified LIBRADO Vines , and KRISTY Gonzalez CC, of. Prema will transport via RCT or ambulance depending on functionality at time of DC.
--- NOTE | 2018-09-19 14:13 | PGE_ITS ---
Documented by User: Danna Malone NP 09/19/18 16:04 Date of Service Date of service: 09/19/18 Time of Service: 13:30 Assessment and Plan (1) Hematobilia: Current visit: No Status: Acute bleeding seems to have stopped, hemoglobin down to 10.9. Liver functions continue to improve with bilirubin down from 5.3 on admission to 1.4 today. repeat CBC and CMP in the a.m. Case was discussed with GI at [facility], Dr Romeo Her. His recommendations are to continue to closely monitor for sepsis with no antibiotics at this point. If she does spike a fever or has signs of sepsis , we will obtain blood cultures and start zosyn. (2) Morbid obesity with BMI of 45.0-49.9, adult: Current visit: No Status: Chronic nutrition consult (3) Depression: Current visit: No Status: Chronic continue zoloft (4) Paroxysmal atrial fibrillation: Current visit: No Status: Chronic with history of PSVT. heart rate has been controlled. some doses of lopressor held due hypotension. will continue to monitor. (5) STACEY (obstructive sleep apnea): Current visit: No Status: Chronic continue cpap at night (6) Discharge planning issues: Current visit: No Status: Acute case management following, will likely need swing level placement for residential, physical and occupational therapy (7) Fever: Current visit: No Status: Acute Max temp overnight of 38.0. white count remains normal. chest xray with no evidence of pneumonia, urinalysis pending. abdominal exam benign. (8) Urinary tract infection: Current visit: Yes Status: Acute culture pending, will start ceftriaxone while awaiting ID and sensitivities. Subjective Interval history since last seen: this is a 62 year old female recently discharged from [facility] following a hospitalization for ascending cholangitis s/p placement of biliary drain who presented to the emergency department for bloody drainage from biliary tube poor PO intake and abdominal discomfort. She was found to have acute renal injury thought secondary to dehydration. Her H&H dropped from 15 to 10.9, her T-tube is now draining bilious fluid with no evidence of blood or clots. She denies increased abdominal pain. she is complaining of bilateral lower extremity pain which is chronic for her. she had 2 soft stools today. max temp overnight 38. no respiratory c/o. Her liver functions have improved dramatically overnight. Her blood pressures remain soft with a systolic bp of 80-100's. kidney functions returned to normal. PO appetite remains poor but is taking some fluids and food. Exam Const General: cooperative and no acute distress Orientation: alert and oriented x3 HENMT Head: normal to inspection, normocephalic and atraumatic Mouth: moist mucous membranes Resp Auscultation: clear to auscultation bilaterally Cardio Rate: regular rate Rhythm: regular rhythm GI Inspection: large pannus and obesity Palpation: soft Auscultation: normal bowel sounds Skin Lesions: lesion noted (left abdominal wall. ) Other: T tube intact right side abdomen draining bilious fluid, no clots or blood noted. Neuro General: alert and oriented x3 Extrem General: normal to inspection, full ROM and edema Objective Objective Clinical Data: Abnormal lab results 09/19/18 09/19/18 Range/Units 06:41 06:41 RBC 3.36 L (4.00-5.20) m/cumm Hgb 10.9 L (12.0-15.5) g/dL Hct 35.8 L (36.0-46.0) % MCV 106.5 H (80-95) fL MCHC 30.4 L (32.0-36.0) g/dL MPV 11.1 H (8.0-11.0) fL Absolute Lymphocytes 0.59 L (1.2-3.4) k/cumm Calcium 8.0 L (8.5-10.1) mg/dL Total Bilirubin 1.4 H (0.2-1.0) mg/dL Alkaline Phosphatase 223 H (46-116) U/L Total Protein 5.4 L (6.4-8.2) g/dL Albumin 2.2 L (3.4-5.0) g/dL Vital Signs Temperature 37.1 C 09/19/18 13:14 Temperature Source Tympanic 09/19/18 13:14 Pulse 82 09/19/18 13:48 Pulse Rhythm Regular 09/19/18 00:00 Pulse 112 H 09/18/18 03:02 Respiratory Rate 18 09/19/18 13:14 Respiratory Effort 09/19/18 00:00 Respiratory Depth Normal 09/19/18 00:00 Respiratory Pattern Normal 09/19/18 00:00 Blood Pressure 86/50 L 09/19/18 13:48 Blood Pressure Mean 62 09/18/18 03:02 Pulse Oximetry 99 09/19/18 13:14 Oxygen Delivery Method Nasal Cannula 09/19/18 13:14 Oxygen Flow Rate 1.5 09/19/18 13:14 Pain Level 8 09/19/18 10:33 Comment 09/19/18 13:48 Intake & Output 09/18/18 09/19/18 09/19/18 23:59 11:59 23:59 Intake Total 2267.5 / 2267.5 2600.0 / 2600.0 0 / 0 Output Total 1745 / 1745 1275 / 1275 Balance 522.5 / 522.5 1325.0 / 1325.0 0 / 0 Intake: IV 1967.5 / 1967.5 2240.0 / 2240.0 0 / 0 Oral 300 / 300 360 / 360 Output: Drainage 595 / 595 475 / 475 Right Abdomen 595 / 595 475 / 475 Urine 1150 / 1150 800 / 800 Other: Urine Color Light Ally Urine Appearance Cloudy Clear Comment Medium ally Stool Size Small Large Moderate Stool Characteristics Soft Soft Soft Formed Brown Voiding Methods Indwelling Catheter Laboratory Results WBC 4.90 k/cumm (4.4-10.8) D 09/19/18 06:41 RBC 3.36 m/cumm (4.00-5.20) L 09/19/18 06:41 Hgb 10.9 g/dL (12.0-15.5) L 09/19/18 06:41 Hct 35.8 % (36.0-46.0) L 09/19/18 06:41 MCV 106.5 fL (80-95) H 09/19/18 06:41 MCH 32.4 pg (27.0-33.0) 09/19/18 06:41 MCHC 30.4 g/dL (32.0-36.0) L 09/19/18 06:41 RDW 14.1 % (11.7-14.6) 09/19/18 06:41 Plt Count 152 x1000/uL (130-400) 09/19/18 06:41 MPV 11.1 fL (8.0-11.0) H 09/19/18 06:41 Immature Gran % 0.2 09/19/18 06:41 Neutrophils % 72.7 09/19/18 06:41 Lymphocytes % 12.0 09/19/18 06:41 Monocytes % 11.8 09/19/18 06:41 Eosinophils % 2.7 09/19/18 06:41 Basophils % 0.6 09/19/18 06:41 Absolute Neutrophils 3.56 k/cumm (1.2-6.7) 09/19/18 06:41 Absolute Lymphocytes 0.59 k/cumm (1.2-3.4) L 09/19/18 06:41 Absolute Monocytes 0.58 k/cumm (0.11-0.7) 09/19/18 06:41 Absolute Eosinophils 0.13 k/cumm (0.0-0.7) 09/19/18 06:41 Absolute Basophils 0.03 k/cumm (0.0-0.2) 09/19/18 06:41 PT 13.7 sec (9.3-10.8) H 09/18/18 06:47 INR 1.4 (1.0-3.5) 09/18/18 06:47 APTT 29.6 sec (21.0-31.4) 09/17/18 23:17 Sodium 141 mmol/L (136-145) 09/19/18 06:41 Potassium 3.8 mmol/L (3.5-5.1) 09/19/18 06:41 Chloride 107 mmol/L (98-107) 09/19/18 06:41 Carbon Dioxide 26.6 mmol/L (21.0-32.0) 09/19/18 06:41 Anion Gap 7.4 mmol/L (3-11) 09/19/18 06:41 BUN 8 mg/dL (7-18) D 09/19/18 06:41 Creatinine 0.56 mg/dL (0.55-1.02) D 09/19/18 06:41 Estimated GFR/1.73 m2 >= 60.00 (mL/min/1.73m2) 09/19/18 06:41 Glucose 87 mg/dL (70-100) 09/19/18 06:41 Calcium 8.0 mg/dL (8.5-10.1) L 09/19/18 06:41 Magnesium 1.6 mg/dL (1.8-2.4) L 09/18/18 06:47 Total Bilirubin 1.4 mg/dL (0.2-1.0) H 09/19/18 06:41 AST 22 U/L (15-37) 09/19/18 06:41 ALT 26 U/L (12-78) 09/19/18 06:41 Alkaline Phosphatase 223 U/L (46-116) H 09/19/18 06:41 Total Protein 5.4 g/dL (6.4-8.2) L 09/19/18 06:41 Albumin 2.2 g/dL (3.4-5.0) L 09/19/18 06:41 Lipase 95 U/L (73-393) 09/17/18 23:17 Patient ABO/Rh O Positive 09/17/18 23:17 Antibody Screen Negative 09/17/18 23:17
[2018-09-19 14:46] LABS: Bilirubin Small (Negative); Blood Small (Negative); Clarity Sl Cloudy; Glucose Negative (Negative); Ketones Negative (Negative); Leukocyte Esterase Large (Negative); Nitrite Negative (Negative); Urobilinogen 0.2 EU/dL (Up TO 0.2)
[2018-09-19 14:56] LABS: Epithelial Cells Few HPF (Negative); WBC >50 HPF (0-5)
[2018-09-19 14:57] LABS: Other Cells Moderate Yeast (Negative)
[2018-09-19] MEDS: Methylphenidate 10 MG TAB PO (14:57)
[2018-09-19 14:58] LABS: Bacteria Few HPF (Negative); C & S Indicated? Yes; Casts Negative LPF (Negative); Crystals Negative HPF (Negative); Mucus Negative (Negative)
[2018-09-19] MEDS: Normal Saline 500 ML 30 ML IV (16:18)
[2018-09-19] MEDS: Lactated Ringers 1,000 ML 100 ML IV (18:34)
[2018-09-19] MEDS: Metoprolol 25 MG TAB PO (20:13)
[2018-09-19] MEDS: Zolpidem 10 MG TAB PO (22:11)
[2018-09-19] MEDS: clonazePAM 1 MG TAB 2 MG PO (22:12)
[2018-09-20 04:00] VITALS: PULSE 106; RESP 18; TEMP 36.8; O2SAT 96
[2018-09-20] MEDS: Lactated Ringers 1,000 ML 100 ML IV (05:07)
[2018-09-20 07:01] LABS: Abs Immature Grans 0.01 k/cumm (0.0-0.09); Absolute Basophil Count 0.03 k/cumm (0.0-0.2); Absolute Eosinophil Count 0.21 k/cumm (0.0-0.7); Absolute Lymphocyte Count 0.73 k/cumm (1.2-3.4); Absolute Monocyte Count 0.51 k/cumm (0.11-0.7); Absolute Neutrophil Count 3.48 k/cumm (1.2-6.7); Basophils % 0.6; Eosinophils % 4.2; HCT 37.5 % (36.0-46.0); HGB 11.3 g/dL (12.0-15.5); Immature Grans % 0.2; Lymphocytes % 14.7; Mean Corp. HGB Concentration 30.1 g/dL (32.0-36.0); Mean Corpuscular Hemoglobin 32.9 pg (27.0-33.0); Mean Corpuscular Volume 109.3 fL (80-95); Mean Platelet Volume 10.9 fL (8.0-11.0); Monocytes % 10.3; Platelet Count 144 x1000/uL (130-400); RBC 3.43 m/cumm (4.00-5.20); RBC Distribution Width 14.1 % (11.7-14.6); White Blood Cell Count 4.97 k/cumm (4.4-10.8)
[2018-09-20 07:11] LABS: ALT 20 U/L (12-78); AST 15 U/L (15-37); Albumin 2.1 g/dL (3.4-5.0); Alkaline Phosphatase 196 U/L (46-116); BUN 7 mg/dL (7-18); Bilirubin, Total 0.8 mg/dL (0.2-1.0); CREATININE 0.64 mg/dL (0.55-1.02); Calcium 8.2 mg/dL (8.5-10.1); Chloride 107 mmol/L (98-107); Glucose 83 mg/dL (70-100); Potassium 4.4 mmol/L (3.5-5.1); Sodium 142 mmol/L (136-145); Total Protein 5.5 g/dL (6.4-8.2)
[2018-09-20 08:27] VITALS: BP 77/54; PULSE 96; RESP 18; TEMP 36.6; O2SAT 96
[2018-09-20] MEDS: Budesonide/Formoterol 160/4.5 6 GM 60 PUFF INH IH (08:31)
[2018-09-20] MEDS: Pantoprazole 40 MG VIAL IVP (08:34)
[2018-09-20] MEDS: Anastrozole 1 MG TAB PO (08:35)
[2018-09-20] MEDS: Normal Saline Flush 10 ML SYR IVP (08:35)
[2018-09-20] MEDS: Cyanocobalamin 100 MCG TABLET PO (08:35)
[2018-09-20] MEDS: Potassium Chloride 20 MEQ TABCR 40 MEQ PO (08:36)
[2018-09-20] MEDS: Sertraline 50 MG TAB 100 MG PO (08:36)
[2018-09-20] MEDS: Cyclobenzaprine 10 MG TAB PO (08:36)
[2018-09-20] MEDS: Methylphenidate 10 MG TAB PO ×2 (10:22→14:33)
[2018-09-20 11:10] VITALS: BP 95/64
[2018-09-20] MEDS: Dicyclomine 10 MG CAP PO (12:11)
[2018-09-20] MEDS: oxyCODONE 5 mg/Acetaminophen 325 mg TAB 1 TAB PO (12:11)
[2018-09-20 12:49] VITALS: BP 84/40; PULSE 105; RESP 24; TEMP 36.8; O2SAT 97
--- NOTE | 2018-09-20 13:15 | PDOC.CMDIS ---
- If Service Date Differs Date of service: 09/20/18 Time of Service: 13:15 LACE Index Scoring Tool - Questions: Length of Stay (in days): 3 Acuity (Admit via E.D.?): Yes Comorbidities: Congestive Heart Failure, Chronic Pulmonary Disease E.D. Visits: 6 - Answers: Total Score: 15 Risk of Readmission: High Risk Care Management Discharge Reason for Hospitalization: Hematobilia Discharge Plan: Prema will return home with resume home health services. She will need resumption of OT and PT to continue to assist with ADL's. Nursing for med management and early detection and changes in health. She will need continued care for her t-tube. CM contacted [facility] reviewed the discharge including increased services adding [employer]. Prema will need to apply for high highest needs choices for care. She declines referral to SNF facility at this time states she wants to be in her own home. MICHAEL contacted her friend Ana and reviewed the plan for her to return home. She will meet the ambulance down stairs with Prema's electric wheelchair. Prema will be discharged on oral antibiotics she should be sent home with enough doses untill Friday when her friend can pick up truck driver her prescription. She will not have access to pharmacy untill then. Prema is open to palliative consult which can be done as an outpatient CM to review with provider to order at time of discharge. CM did contact her son Emery and left a voicemail to provide update at the request of Prema. CM coordinated [facility] for 330 pick and transport home. Patient/Family Education Needs: Discharge education, limitations and follow up plan of care including ask me three and self management. Services Needed at Discharge: DME Agency, Home Health Care Services, Occupational Therapy, Outpatient Therapy, Transportation
--- NOTE | 2018-09-20 13:56 | W.PM.DS.N ---
Date of service: 09/20/18 Time of Service: 13:57 DS: Diagnosis Discharge Diagnosis (1) Hematobilia: Status: Acute (2) Fever: Status: Acute (3) Urinary tract infection: Status: Acute Discharge Plan Disposition Patient Disposition: HOME W/HOME HEALTH SERVICE Condition: Improving Discharge Details Reason For Visit: DEHYDRATION, HEMOTOBILIA Admit Date/Time: 09/18/18 02:16 Admit Provider: Emery Uribe Attending Provider: Emery Uribe Primary Care Provider: Sera Gutiérrez [facility] Course Hospital Course: CC: Hematobilia HPI: 62 year old woman with a prior medical history of ascending cholangitis admitted from [facility] Emergency Department on 09/18 with reported bloody drainage from her biliary drain. Ms. Watson has a prior history of morbid obesity, Breast Ca, CAD, COPD, STACEY, PHTN with severe TR, and GERD. She was admitted to [facility] 08/30 through 09/09/2018 with a diagnosis of Ascending Cholangitis and UTI with resultant septic shock, treated with IV Antibiotics and sent home on Cipro and Flagyl that completed 3 days prior to her admission here. She also had a biliary drain placed during that hospitalization. She then presented to the ER at [facility] with complaint of blood draining from her biliary tube, decreased appetite, poor oral intake, nausea, and abdominal pain. Initial work-up in the emergency room consisted of a CT of the abdomen and pelvis which showed the biliary tube to be in proper placement without hematoma or absces. Labwork failed to show a leukocytosis and without anemia, but with an elevated BUN and creatinine of 29 and 1.49 and elevated LFT's w/ total bilirubin of 5.3, AST 57, alkaline phosphatase of 371 and elevated protime of 13.7/INR 1.4. These labs all represented worsening values compared to her discharge labs from [facility]. Following discussion with GI from [facility] no urgent need for transfer was seen, and recommendations were made for admission with IVF hydration and monitoring of vitals, labs, and blood loss from the biliary tube. Advised to arrange transfer in the morning for IR biliary tube replacement if needed. As the patient had completed all of her antibiotic treatment for cholangitis and there was no evidence of recurrent infection (i.e. patient is afebrile, no leukocytosis and no acute findings on her CT scan) they did not recommend antibiotics. Following admission the patient's hematobilia resolved and her LFTs, including ALT, Alk Phos, and Total Bili improved significantly and at time of discharge her AST/ALT and Total Bilirubin have normalized, with a minimal and chronic appearing elevation in alk phos. She had an elevation in temperature with a fever of 38 on 09/18 in the setting of improving LFTs. Further work-up revealed evidence of a UTI. Patient has appeared without acute needs and not ill appearing or toxic. She has however had continuously low blood pressure readings, now ongoing since the time of her admission on 09/17. Systolic ranges of 70-90's mostly recorded since that time. She has also been intermittently minimally tachycardic, but with return of HR back to the 60-80's in between. Discussion with nursing appears to indicate that the patient has been exceedingly difficult to measure blood pressure on - staff have had to resort to checking pressures on patient's one wrist or in her lower extremity, and due to her body habitus having a difficult time with the readings. Of note, Mrs. Watson has refused to allow bp checks on her one upper extremity due to her history of Breast Ca. She has been under treatment for her UTI for over 24 hours, without any further fevers or leukocytosis. Hospital Course: (1) Hematobilia: Bleeding seems to have stopped, hemoglobin down stable at 11.3. LFTs improved and back to baseline. Patient had a low grade fever in the setting of continued improvement in her LFTs and resolution of her nausea and abdominal discomfort. Work-up revealed evidence of potential UTI. She was initiated on antibiotic therapy for a urinary tract infection, and has been afebrile for well over 24 hours. Will follow-up with GI as previously appointed. (2) Paroxysmal atrial fibrillation: with history of PSVT. Continue BB at discharge. (3) STACEY Maintained on cpap while hospitalized. (4) UTI Urinalysis with clear evidence of infection with large Leukocyte Esterase, and >50 WBCs, but culture with >100,000 of mixed gram positive alvarado, noted to be possible contaminated collection. Review of patient's prior Urine Culture results from 08/30/2018, 09/2017, 05/2017, and 10/2016 all with growth of E.Coli sensitive to Fluoroquinolone therapy. Patient with noted allergy to Cipro, but had completed a course of Cipro after discharge from [facility]. Will complete treatment with another course of Ciprofloxacin at time of discharge. (5) HTN Noted hypotension throughout her hospital course from initial evaluation until her time of discharge, patient's blood pressure measurements have been less than ideal and problematic due to body habitus and patient preference. She is not dehydrated, does not appear septic, and current reading have been ongoing for over 3 days - doubt pathology. Will need to be followed up as an outpatient. Will arrange for home VNA. (6) Discharge planning issues: Case management followed throughout hospital course. Did discuss potential for SNF for PT, refused by patient. Will discharge home with Home Health Services to include PT/OT, VNA, and [employer]/OWNER. Home Meds and New Rx's Prescriptions: New ciprofloxacin HCl 500 mg Tablet 500 mg PO BID Qty: 10 RF: 0 Continue sertraline [Zoloft] 50 MG tablet 100 mg PO DAILY RF: 0 clonazepam 1 MG tablet,disintegrating 2 tab PO HS RF: 0 loperamide [Imodium A-D] 2 MG capsule 2 mg PO QID PRN (Reason: Diarrhea) RF: 0 oxycodone-acetaminophen [Percocet] 1 EACH tablet 1 ea PO QID RF: 0 methylphenidate HCl 10 MG tablet 10 mg PO BID RF: 0 nystatin (bulk) 1 EACH powder 1 ea Miscellaneous TID RF: 0 ipratropium-albuterol 3 ML solution for nebulization 3 ml Inhalation QID RF: 0 acetaminophen 500 MG tablet 1,000 mg PO Q6H PRN RF: 0 naloxone [Narcan] 4 MG spray,non-aerosol 4 mg NS as directed 1 Days Qty: 2 RF: 0 lorazepam 0.5 MG tablet 0.5 mg PO QID PRNRF: 0 pantoprazole 40 MG tablet,delayed release (DR/EC) 40 mg PO DAILY RF: 0 albuterol sulfate [ProAir HFA] 200 PUFF HFA aerosol inhaler 2 puff Inhalation .Q4-6H PRN PRNRF: 0 cyclobenzaprine 10 MG tablet 10 mg PO BID RF: 0 calcium carbonate-vitamin D3 1 EACH tablet 2 tab PO BID RF: 0 ferrous sulfate 325 MG tablet 325 mg PO DAILY RF: 0 dicyclomine 10 MG capsule 10 mg PO BID RF: 0 loratadine 10 MG tablet 10 mg PO DAILY PRNRF: 0 fluticasone-salmeterol [Advair HFA] 60 PUFF HFA aerosol inhaler 2 puff Inhalation BID RF: 0 anastrozole [Arimidex] 1 MG tablet 1 mg PO DAILY RF: 0 glucosamine sulfate 2KCl 1,000 MG tablet 500 mg PO BID RF: 0 cyanocobalamin (vitamin B-12) [Vitamin B-12] 100 MCG tablet 100 mcg PO DAILY RF: 0 sennosides-docusate sodium [Senna-S] 1 EACH tablet 2 ea PO BID RF: 0 ascorbic acid (vitamin C) [Vitamin C] 500 MG tablet 500 mg PO BID RF: 0 nitroglycerin [Nitrostat] 0.4 MG tablet, sublingual 0.4 mg Sublingual DIRECTED PRNRF: 0 ergocalciferol (vitamin D2) [Vitamin D2] 50,000 UNITS capsule 50,000 units PO DIRECTED RF: 0 zolpidem 10 MG tablet 10 mg PO HS PRN PRNRF: 0 metoprolol tartrate 25 mg Tablet 25 mg PO TID RF: 0 Discharge Instructions Additional Instructions: Please see your Primary Care Provider within one week Activity:: No Strenuous Activity Equipment/Supplies:: No Equipment Needed Diet:: Heart Healthy Discharge Orders Discharge Orders: Discharge Order (Routine); Ordered 09/20/18 Ordered By: Seven Wells DS: Data Vitals/I&O Vitals and I&O: Vital Signs Temperature 36.8 C 09/20/18 12:49 Temperature Source Tympanic 09/20/18 12:49 Pulse 105 H 09/20/18 12:49 Pulse Rhythm Regular 09/20/18 10:44 Pulse 112 H 09/18/18 03:02 Respiratory Rate 24 09/20/18 12:49 Respiratory Effort Non-Labored 09/20/18 10:44 Respiratory Depth Normal 09/20/18 10:44 Respiratory Pattern Normal 09/20/18 10:44 Blood Pressure 84/40 L 09/20/18 12:49 Blood Pressure Mean 62 09/18/18 03:02 Pulse Oximetry 97 09/20/18 12:49 Oxygen Delivery Method Room Air 09/20/18 12:49 Oxygen Flow Rate 0 09/20/18 12:49 Pain Level 6 09/20/18 12:11 Comment 09/20/18 08:27 Intake & Output 09/19/18 09/20/18 09/20/18 23:59 11:59 23:59 Intake Total 1809.5 / 1809.5 1540 / 1540 Output Total 1475 / 1475 1450 / 1450 Balance 334.5 / 334.5 90 / 90 Intake: IV 249.5 / 249.5 1000 / 1000 Oral 1560 / 1560 540 / 540 Output: Drainage 725 / 725 600 / 600 Right Abdomen 725 / 725 600 / 600 Urine 750 / 750 850 / 850 Other: Urine Color Yellow Yellow Urine Appearance Clear Clear Stool Size Moderate Large Moderate Stool Characteristics Soft Soft Liquid Voiding Methods Urinal Completed studies during hospitalization [Text1]: Exam(s) a CT:CT abdomen & pelvis wo SYMPTOMS/DIAGNOSIS: ABD PAIN, BLOOD DRAINING FROM BILIARY TUBE ABDOMINAL AND PELVIC CT: The study was carried out without contrast enhancement. A biliary drainage catheter is noted in place and apparently has been positioned since the previous study. The catheter is well positioned with its tip in the transverse duodenum. Note is made of a chest wall fluid collection, stable when compared with the prior study which could represent a partial implant small complex pleural effusion. This also appears stable with the prior images. The liver is normal. The gallbladder is normal. There are no stones or ductal dilatation. The pancreas is normal. The spleen is normal. The adrenals are normal. There is nonobstructing bilateral nephrolithiasis. Note is made of distention of the colon to the level of the rectum. This being a nonspecific finding, however, the possibility of a colonic ileus and alternatively mild distention of the colon is suggested with note made of fluid throughout the colon consistent with diarrhea. The small bowel is not dilatation. A loop of small bowel extends into the infraumbilical right parasagittal ventral hernia but there is no evidence of small bowel obstruction. The appendix is unremarkable. The bladder contains a Gao catheter is otherwise unremarkable. The reproductive organs as visualized are unremarkable. No acute bony abnormality is seen. The soft tissues are unremarkable. There is no aortic aneurysm. There is no lymphadenopathy. SUMMARY: Dilatation of the colon is noted to the level of the rectum. There is scattered gas and fluid in the colon and the findings could indicate diarrhea. These findings to be correlated with the patient's clinical status. XAM: XR Chest, 2 Views EXAM DATE/TIME: 09/19/2018 9:31 AM CLINICAL HISTORY: 62 years old, female; Signs and symptoms; Fever; Additional info: Best inspiration taken by patient. TECHNIQUE: XR of the chest, 2 views. COMPARISON: CR XR CHEST 2V PA LATERAL 08/30/2018 7:59 AM FINDINGS: Lungs: The pulmonary vascularity remains slightly prominent, unchanged from prior study. Pleural space: There is left pleural apical thickening. Trace right pleural effusion. Heart/Mediastinum: Cardiomegaly. Bones/joints: Unremarkable. Other findings: The patient is slightly lordotically positioned. IMPRESSION: Trace right pleural effusion. No change mild congestion. Labs on day of discharge: Labs from last 24 hours 09/20/18 09/20/18 09/19/18 06:30 06:30 14:38 WBC 4.97 RBC 3.43 L Hgb 11.3 L Hct 37.5 MCV 109.3 H MCH 32.9 MCHC 30.1 L RDW 14.1 Plt Count 144 MPV 10.9 Immature Gran % 0.2 Neutrophils % 70.0 Lymphocytes % 14.7 Monocytes % 10.3 Eosinophils % 4.2 Basophils % 0.6 Absolute Neutrophils 3.48 Absolute Lymphocytes 0.73 L Absolute Monocytes 0.51 Absolute Eosinophils 0.21 Absolute Basophils 0.03 Sodium 142 Potassium 4.4 Chloride 107 Carbon Dioxide 29.0 Anion Gap 6.0 BUN 7 Creatinine 0.64 Estimated GFR/1.73 m2 >= 60.00 Glucose 83 Calcium 8.2 L Total Bilirubin 0.8 AST 15 ALT 20 Alkaline Phosphatase 196 H Total Protein 5.5 L Albumin 2.1 L Urine Color Yellow Urine Clarity Sl cloudy Urine pH 6.0 Ur Specific [place] 1.020 Urine Protein 30 H Urine Ketones Negative Urine Blood Small H Urine Nitrite Negative Urine Bilirubin Small H Urine Urobilinogen 0.2 Ur Leukocyte Esterase Large H Urine RBC 10-20 H Urine WBC >50 Ur Epithelial Cells Few Urine Crystals Negative Urine Bacteria Few Urine Casts Negative Urine Mucus Negative Urine Other Moderate yeast Ur Culture Indicated? Yes Urine Glucose Negative Preliminary micro results at discharge 09/19/18 14:38 Urine Culture - Preliminary Urine - Reflex from Ua YEAST Gram Positive Alvarado,Mixed
--- NOTE | 2018-09-20 14:17 | DSE_ITS ---
Date of service: 09/20/18 Time of Service: 13:57 DS: Diagnosis Discharge Diagnosis (1) Hematobilia: Status: Acute (2) Fever: Status: Acute (3) Urinary tract infection: Status: Acute Discharge Plan Disposition Patient Disposition: HOME W/HOME HEALTH SERVICE Condition: Improving Discharge Details Reason For Visit: DEHYDRATION, HEMOTOBILIA Admit Date/Time: 09/18/18 02:16 Admit Provider: Emery Uribe Attending Provider: Emery Uribe Primary Care Provider: Sera Gutiérrez [facility] Hospital Course: CC: Hematobilia HPI: 62 year old woman with a prior medical history of ascending cholangitis admitted from [facility] Emergency Department on 09/18 with reported bloody drainage from her biliary drain. Ms. Watson has a prior history of morbid obesity, Breast Ca, CAD, COPD, STACEY, PHTN with severe TR, and GERD. She was admitted to [facility] 08/30 through 09/09/2018 with a diagnosis of Ascending Cholangitis and UTI with resultant septic shock, treated with IV Antibiotics and sent home on Cipro and Flagyl that completed 3 days prior to her admission here. She also had a biliary drain placed during that hospitalization. She then presented to the ER at [facility] with complaint of blood draining from her biliary tube, decreased appetite, poor oral intake, nausea, and abdominal pain. Initial work-up in the emergency room consisted of a CT of the abdomen and pelvis which showed the biliary tube to be in proper placement without hematoma or absces. Labwork failed to show a leukocytosis and without anemia, but with an elevated BUN and creatinine of 29 and 1.49 and elevated LFT's w/ total bilirubin of 5.3, AST 57, alkaline phosphatase of 371 and elevated protime of 13.7/INR 1.4. These labs all represented worsening values compared to her discharge labs from [facility]. Following discussion with GI from [facility] no urgent need for transfer was seen, and recommendations were made for admission with IVF hydration and monitoring of vitals, labs, and blood loss from the biliary tube. Advised to arrange transfer in the morning for IR biliary tube replacement if needed. As the patient had completed all of her antibiotic treatment for cholangitis and there was no evidence of recurrent infection ( i.e. patient is afebrile, no leukocytosis and no acute findings on her CT scan) they did not recommend antibiotics. Following admission the patient's hematobilia resolved and her LFTs, including ALT, Alk Phos, and Total Bili improved significantly and at time of discharge her AST/ALT and Total Bilirubin have normalized, with a minimal and chronic appearing elevation in alk phos. She had an elevation in temperature with a fever of 38 on 09/18 in the setting of improving LFTs. Further work-up revealed evidence of a UTI. Patient has appeared without acute needs and not ill appearing or toxic. She has however had continuously low blood pressure readings, now ongoing since the time of her admission on 09/17. Systolic ranges of 70-90's mostly recorded since that time. She has also been intermittently minimally tachycardic, but with return of HR back to the 60-80's in between. Discussion with nursing appears to indicate that the patient has been exceedingly difficult to measure blood pressure on - staff have had to resort to checking pressures on patient's one wrist or in her lower extremity, and due to her body habitus having a difficult time with the readings. Of note, Mrs. Watson has refused to allow bp checks on her one upper extremity due to her history of Breast Ca. She has been under treatment for her UTI for over 24 hours, without any further fevers or leukocytosis. Hospital Course: (1) Hematobilia: Bleeding seems to have stopped, hemoglobin down stable at 11.3. LFTs improved and back to baseline. Patient had a low grade fever in the setting of continued improvement in her LFTs and resolution of her nausea and abdominal discomfort. Work-up revealed evidence of potential UTI. She was initiated on antibiotic therapy for a urinary tract infection, and has been afebrile for well over 24 hours. Will follow-up with GI as previously appointed. (2) Paroxysmal atrial fibrillation: with history of PSVT. Continue BB at discharge. (3) STACEY Maintained on cpap while hospitalized. (4) UTI Urinalysis with clear evidence of infection with large Leukocyte Esterase, and > 50 WBCs, but culture with >100,000 of mixed gram positive alvarado, noted to be possible contaminated collection. Review of patient's prior Urine Culture results from 08/30/2018, 09/2017, 05/2017, and 10/2016 all with growth of E.Coli sensitive to Fluoroquinolone therapy. Patient with noted allergy to Cipro, but had completed a course of Cipro after discharge from [facility]. Will complete treatment with another course of Ciprofloxacin at time of discharge. (5) HTN Noted hypotension throughout her hospital course from initial evaluation until her time of discharge, patient's blood pressure measurements have been less than ideal and problematic due to body habitus and patient preference. She is not dehydrated, does not appear septic, and current reading have been ongoing for over 3 days - doubt pathology. Will need to be followed up as an outpatient. Will arrange for home VNA. (6) Discharge planning issues: Case management followed throughout hospital course. Did discuss potential for SNF for PT, refused by patient. 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 Home Meds and New Rx's Prescriptions: New ciprofloxacin HCl 500 mg Tablet 500 mg PO BID Qty: 10 RF: 0 Continue sertraline [Zoloft] 50 MG tablet 100 mg PO DAILY RF: 0 clonazepam 1 MG tablet,disintegrating 2 tab PO HS RF: 0 loperamide [Imodium A-D] 2 MG capsule 2 mg PO QID PRN (Reason: Diarrhea) RF: 0 oxycodone-acetaminophen [Percocet] 1 EACH tablet 1 ea PO QID RF: 0 methylphenidate HCl 10 MG tablet 10 mg PO BID RF: 0 nystatin (bulk) 1 EACH powder 1 ea Miscellaneous TID RF: 0 ipratropium-albuterol 3 ML solution for nebulization 3 ml Inhalation QID RF: 0 acetaminophen 500 MG tablet 1,000 mg PO Q6H PRN RF: 0 naloxone [Narcan] 4 MG spray,non-aerosol 4 mg NS as directed 1 Days Qty: 2 RF: 0 lorazepam 0.5 MG tablet 0.5 mg PO QID PRNRF: 0 pantoprazole 40 MG tablet,delayed release (DR/EC) 40 mg PO DAILY RF: 0 albuterol sulfate [ProAir HFA] 200 PUFF HFA aerosol inhaler 2 puff Inhalation .Q4-6H PRN PRNRF: 0 cyclobenzaprine 10 MG tablet 10 mg PO BID RF: 0 calcium carbonate-vitamin D3 1 EACH tablet 2 tab PO BID RF: 0 ferrous sulfate 325 MG tablet 325 mg PO DAILY RF: 0 dicyclomine 10 MG capsule 10 mg PO BID RF: 0 loratadine 10 MG tablet 10 mg PO DAILY PRNRF: 0 fluticasone-salmeterol [Advair HFA] 60 PUFF HFA aerosol inhaler 2 puff Inhalation BID RF: 0 anastrozole [Arimidex] 1 MG tablet 1 mg PO DAILY RF: 0 glucosamine sulfate 2KCl 1,000 MG tablet 500 mg PO BID RF: 0 cyanocobalamin (vitamin B-12) [Vitamin B-12] 100 MCG tablet 100 mcg PO DAILY RF: 0 sennosides-docusate sodium [Senna-S] 1 EACH tablet 2 ea PO BID RF: 0 ascorbic acid (vitamin C) [Vitamin C] 500 MG tablet 500 mg PO BID RF: 0 nitroglycerin [Nitrostat] 0.4 MG tablet, sublingual 0.4 mg Sublingual DIRECTED PRNRF: 0 ergocalciferol (vitamin D2) [Vitamin D2] 50,000 UNITS capsule 50,000 units PO DIRECTED RF: 0 zolpidem 10 MG tablet 10 mg PO HS PRN PRNRF: 0 metoprolol tartrate 25 mg Tablet 25 mg PO TID RF: 0 Discharge Instructions Additional Instructions: Please see your Primary Care Provider within one week Activity:: No Strenuous Activity Equipment/Supplies:: No Equipment Needed Diet:: Heart Healthy Discharge Orders Discharge Orders: Discharge Order (Routine); Ordered 09/20/18 Ordered By: Seven Wells DS: Data Vitals/I&O Vitals and I&O: Vital Signs Temperature 36.8 C 09/20/18 12:49 Temperature Source Tympanic 09/20/18 12:49 Pulse 105 H 09/20/18 12:49 Pulse Rhythm Regular 09/20/18 10:44 Pulse 112 H 09/18/18 03:02 Respiratory Rate 24 09/20/18 12:49 Respiratory Effort Non-Labored 09/20/18 10:44 Respiratory Depth Normal 09/20/18 10:44 Respiratory Pattern Normal 09/20/18 10:44 Blood Pressure 84/40 L 09/20/18 12:49 Blood Pressure Mean 62 09/18/18 03:02 Pulse Oximetry 97 09/20/18 12:49 Oxygen Delivery Method Room Air 09/20/18 12:49 Oxygen Flow Rate 0 09/20/18 12:49 Pain Level 6 09/20/18 12:11 Comment 09/20/18 08:27 Intake & Output 09/19/18 09/20/18 09/20/18 23:59 11:59 23:59 Intake Total 1809.5 / 1809.5 1540 / 1540 Output Total 1475 / 1475 1450 / 1450 Balance 334.5 / 334.5 90 / 90 Intake: IV 249.5 / 249.5 1000 / 1000 Oral 1560 / 1560 540 / 540 Output: Drainage 725 / 725 600 / 600 Right Abdomen 725 / 725 600 / 600 Urine 750 / 750 850 / 850 Other: Urine Color Yellow Yellow Urine Appearance Clear Clear Stool Size Moderate Large Moderate Stool Characteristics Soft Soft Liquid Voiding Methods Urinal Completed studies during hospitalization [Text1]: Exam(s) a CT:CT abdomen & pelvis wo SYMPTOMS/DIAGNOSIS: ABD PAIN, BLOOD DRAINING FROM BILIARY TUBE ABDOMINAL AND PELVIC CT: The study was carried out without contrast enhancement. A biliary drainage catheter is noted in place and apparently has been positioned since the previous study. The catheter is well positioned with its tip in the transverse duodenum. Note is made of a chest wall fluid collection, stable when compared with the prior study which could represent a partial implant small complex pleural effusion. This also appears stable with the prior images. The liver is normal. The gallbladder is normal. There are no stones or ductal dilatation. The pancreas is normal. The spleen is normal. The adrenals are normal. There is nonobstructing bilateral nephrolithiasis. Note is made of distention of the colon to the level of the rectum. This being a nonspecific finding, however, the possibility of a colonic ileus and alternatively mild distention of the colon is suggested with note made of fluid throughout the colon consistent with diarrhea. The small bowel is not dilatation. A loop of small bowel extends into the infraumbilical right parasagittal ventral hernia but there is no evidence of small bowel obstruction. The appendix is unremarkable. The bladder contains a Gao catheter is otherwise unremarkable. The reproductive organs as visualized are unremarkable. No acute bony abnormality is seen. The soft tissues are unremarkable. There is no aortic aneurysm. There is no lymphadenopathy. SUMMARY: Dilatation of the colon is noted to the level of the rectum. There is scattered gas and fluid in the colon and the findings could indicate diarrhea. These findings to be correlated with the patient's clinical status. XAM: XR Chest, 2 Views EXAM DATE/TIME: 09/19/2018 9:31 AM CLINICAL HISTORY: 62 years old, female; Signs and symptoms; Fever; Additional info: Best inspiration taken by patient. TECHNIQUE: XR of the chest, 2 views. COMPARISON: CR XR CHEST 2V PA LATERAL 08/30/2018 7:59 AM FINDINGS: Lungs: The pulmonary vascularity remains slightly prominent, unchanged from prior study. Pleural space: There is left pleural apical thickening. Trace right pleural effusion. Heart/Mediastinum: Cardiomegaly. Bones/joints: Unremarkable. Other findings: The patient is slightly lordotically positioned. IMPRESSION: Trace right pleural effusion. No change mild congestion. Labs on day of discharge: Labs from last 24 hours 09/20/18 09/20/18 09/19/18 06:30 06:30 14:38 WBC 4.97 RBC 3.43 L Hgb 11.3 L Hct 37.5 MCV 109.3 H MCH 32.9 MCHC 30.1 L RDW 14.1 Plt Count 144 MPV 10.9 Immature Gran % 0.2 Neutrophils % 70.0 Lymphocytes % 14.7 Monocytes % 10.3 Eosinophils % 4.2 Basophils % 0.6 Absolute Neutrophils 3.48 Absolute Lymphocytes 0.73 L Absolute Monocytes 0.51 Absolute Eosinophils 0.21 Absolute Basophils 0.03 Sodium 142 Potassium 4.4 Chloride 107 Carbon Dioxide 29.0 Anion Gap 6.0 BUN 7 Creatinine 0.64 Estimated GFR/1.73 m2 >= 60.00 Glucose 83 Calcium 8.2 L Total Bilirubin 0.8 AST 15 ALT 20 Alkaline Phosphatase 196 H Total Protein 5.5 L Albumin 2.1 L Urine Color Yellow Urine Clarity Sl cloudy Urine pH 6.0 Ur Specific [place] 1.020 Urine Protein 30 H Urine Ketones Negative Urine Blood Small H Urine Nitrite Negative Urine Bilirubin Small H Urine Urobilinogen 0.2 Ur Leukocyte Esterase Large H Urine RBC 10-20 H Urine WBC >50 Ur Epithelial Cells Few Urine Crystals Negative Urine Bacteria Few Urine Casts Negative Urine Mucus Negative Urine Other Moderate yeast Ur Culture Indicated? Yes Urine Glucose Negative Preliminary micro results at discharge 09/19/18 14:38 Urine Culture - Preliminary Urine - Reflex from Ua YEAST Gram Positive Alvarado,Mixed
[2018-09-20] MEDS: Loperamide 2 MG CAP PO (14:33)
--- NOTE | 2018-09-20 14:40 | PDOC.HHF2F ---
1. Encounter Date and Reason I certify that CHANTELLE DAIGLE was seen by Seven Wells on 09/20/18 and that I had a [id number] encounter with this patient that meets the physician face to face encounter requirements. 2. Clinical Findings Supporting Skilled Need and Homebound Status I certify that home health services are medically necessary, include either intermittent halfway and/or physical/speech therapy, and that this patient is homebound in that absences from the home require considerable and taxing effort and are infrequent or of short duration, or are attributable to the need to receive medical care. [X] (a) Attached documentation from encounter provides clinical findings supporting skilled need and homebound status (including what assistance patient requires to leave the home). The encounter with the patient was in whole, or in part, for the following medical condition, which is the primary reason for home health care: DEHYDRATION, HEMOTOBILIA Group Home: Blood Pressure and Med Check. Due to limitations by body habitus and patient preference, blood pressure readings were mostly performed on the patient's wrist and legs, with systolic values in the 70-90's for over 72 hours without any evidence of dehydration or sepsis. Also for med check, new antibiotic therapy for another 5 days. Physical Therapy/Occupational therapy: Recent lengthy hospitalization at [facility], again here at [facility]. Refusing SNF. Marker Delivery: INCLINOMETER TESTER required per care management team. Speech Therapy: Homebound: 3. Certification and Authentication I certify that I composed the above information based on my clinical judgement relating to this patient's medical condition and, if applicable, clinical findings communicated to me by the NPP or inpatient physician who performed the Home Health Referral. All further orders will be obtained through (Community Based Physician - PCP)
== END 2018-09-20 15:48 | disposition home health service (06) | DRG 445 ==
LOC: ER 09-18 02:41 → MS 09-18 03:39
PROVIDERS: Nurse Practitioner Acute Care; Admitting Provider Internal Medicine; Emergency Provider Emergency Medicine; PCP Family Medicine; Visit Provider Internal Medicine
DX: K83.8 Other specified diseases of biliary tract (principal); N39.0 Urinary tract infection, site not specified; Z68.42 Body mass index [BMI] 45.0-49.9, adult; B37.49 Other urogenital candidiasis; R50.9 Fever, unspecified; I48.0 Paroxysmal atrial fibrillation; I25.10 Atherosclerotic heart disease of native coronary artery without angina pectoris; J44.9 Chronic obstructive pulmonary disease, unspecified; G47.33 Obstructive sleep apnea (adult) (pediatric); I27.20 Pulmonary hypertension, unspecified; K21.9 Gastro-esophageal reflux disease without esophagitis; E66.01 Morbid (severe) obesity due to excess calories; F32.9 Major depressive disorder, single episode, unspecified
CPT/HCPCS: 36415; 80053; 83690; 86850; 86900; 86901; 87077; 94640; 96360; 96361; 99285; 71046; 74176; 81003; 81015; 83735; 85014; 85018; 85025; 85610; 85730; 87086; 99223; 99233; 99239; 99284; J0696; J3430

== ENCOUNTER 2018-09-21 14:07 | Inpatient (IN) | payer MEDICAID, SELFPAY ==
[2018-09-21] VITALS (83 sets, daily range): BP systolic 57–95; BP diastolic 37–71; PULSE 69–144; RESP 17–35; TEMP 35.9–36.7; O2SAT 88–100
--- NOTE | 2018-09-21 14:10 | ED.GENADUL_ITS ---
Discharge Plan Discharge Details Chief Complaint: GenMedical Reason For Visit: ABNORMAL LFTS, AFIB Admit Date/Time: 09/21/18 15:36 Admit Provider: Seven Wells Attending Provider: Seven Wells Primary Care Provider: Sera Gutiérrez ED Provider: Kacey Hernandez Discharge Data Discharge Date/Time-TO BE ENTERED AT DEPARTURE: 09/21/18 17:35 Medical Decision Making Prema Watson is a 62-year-old woman with history of relation section, congestive heart failure, breast cancer, COPD, hyperlipidemia, recent hepatobiliary drain placement status post ascending cholangitis, discharged from [facility] yesterday now presenting to the emergency department with blood clots in hepato-biliary drain bag. On exam patient is chronically ill-appearing but does not appear to be in extremis. She has a tachycardic regular regular rhythm. She has mild tenderness across the upper abdomen without peritoneal signs. Her hepatobiliary drain has a mild to moderate amount of karen blood without apparent clots. Concern for possible worsening obstruction, sepsis. Patient also with intermittent blood pressure as low as SBP 70s, although per record review this is been consistent over the past few days during her admission. While this may represent sepsis, we will hold antibiotic treatment at this time given ongoing low blood pressure and no apparent change in symptoms. Plan for EKG, screening labs. Patient with elevated T bili and alk phos from yesterday. Unclear if this represents obstruction versus problem with drain emptying secondary to clots. Plan for admission for rule out obstruction. Given chronicity of symptoms, no further imaging at this time. Patient to have arterial line placed to determine if blood pressures are accurate, as she is refusing manual blood pressures and blood pressures are currently being taken from the forearm. This will determine treatment for A. fib. Patient also reported to the hospitalist that she skipped her afternoon dose of metoprolol. No emergent treatment for A. fib with RVR at this point. Clinical Impression: elevated t.bili, afib, hypotension Disposition: [facility] inpt Medical Records Medical records reviewed: Yes I reviewed the patient's medical records. Lab Data Lab results reviewed: Yes I reviewed the patient's lab results. 09/21/18 16:00 Urine - Reflex from Ua Urine Culture - Pending Laboratory Tests Range/Units 09/21/18 09/21/18 09/21/18 14:45 14:45 14:45 WBC (4.4-10.8) k/cumm 6.71 RBC (4.00-5.20) m/cumm 3.72 L Hgb (12.0-15.5) g/dL 12.2 Hct (36.0-46.0) % 40.6 MCV (80-95) fL 109.1 H MCH (27.0-33.0) pg 32.8 MCHC (32.0-36.0) g/dL 30.0 L RDW (11.7-14.6) % 13.6 Plt Count (130-400) x1000/uL 157 MPV (8.0-11.0) fL 10.8 Immature Gran % 0.0 Neutrophils % 76.3 Lymphocytes % 11.2 Monocytes % 5.8 Eosinophils % 6.3 Basophils % 0.4 Absolute Neutrophils (1.2-6.7) k/cumm 5.12 Absolute Lymphocytes (1.2-3.4) k/cumm 0.75 L Absolute Monocytes (0.11-0.7) k/cumm 0.39 Absolute Eosinophils (0.0-0.7) k/cumm 0.42 Absolute Basophils (0.0-0.2) k/cumm 0.03 Differential Comment Diff reviewed RBC Morphology See below Macrocytosis 1+ Sodium (136-145) mmol/L 138 Potassium (3.5-5.1) mmol/L 4.2 Chloride (98-107) mmol/L 101 Carbon Dioxide (21.0-32.0) mmol/L 31.0 Anion Gap (3-11) mmol/L 6.0 BUN (7-18) mg/dL 6 L Creatinine (0.55-1.02) mg/dL 0.78 Estimated GFR/1.73 m2 (mL/min/1.73m2) >= 60.00 Glucose (70-100) mg/dL 75 Lactate (0.6-1.4) mmol/L 1.3 Calcium (8.5-10.1) mg/dL 8.5 Total Bilirubin (0.2-1.0) mg/dL 1.8 H AST (15-37) U/L 32 ALT (12-78) U/L 27 Alkaline Phosphatase (46-116) U/L 233 H Troponin I (0.00-0.06) ng/mL < 0.02 Total Protein (6.4-8.2) g/dL 6.4 Albumin (3.4-5.0) g/dL 2.5 L Urine Color (Yellow) Urine Clarity Urine pH (5-8) Ur Specific [place] (1.005-1.025) Urine Protein (Negative) mg/dL Urine Ketones (Negative) mg/dL Urine Blood (Negative) Urine Nitrite (Negative) Urine Bilirubin (Negative) Urine Urobilinogen (Up TO 0.2) EU/dL Ur Leukocyte Esterase (Negative) Urine RBC (0-2) Urine WBC (0-5) HPF Ur Epithelial Cells (Negative) HPF Urine Crystals (Negative) HPF Urine Bacteria (Negative) HPF Urine Casts (Negative) LPF Urine Mucus (Negative) Urine Other (Negative) Ur Culture Indicated? Urine Glucose (Negative) mg/dL Range/Units 09/21/18 16:00 WBC (4.4-10.8) k/cumm RBC (4.00-5.20) m/cumm Hgb (12.0-15.5) g/dL Hct (36.0-46.0) % MCV (80-95) fL MCH (27.0-33.0) pg MCHC (32.0-36.0) g/dL RDW (11.7-14.6) % Plt Count (130-400) x1000/uL MPV (8.0-11.0) fL Immature Gran % Neutrophils % Lymphocytes % Monocytes % Eosinophils % Basophils % Absolute Neutrophils (1.2-6.7) k/cumm Absolute Lymphocytes (1.2-3.4) k/cumm Absolute Monocytes (0.11-0.7) k/cumm Absolute Eosinophils (0.0-0.7) k/cumm Absolute Basophils (0.0-0.2) k/cumm Differential Comment RBC Morphology Macrocytosis Sodium (136-145) mmol/L Potassium (3.5-5.1) mmol/L Chloride (98-107) mmol/L Carbon Dioxide (21.0-32.0) mmol/L Anion Gap (3-11) mmol/L BUN (7-18) mg/dL Creatinine (0.55-1.02) mg/dL Estimated GFR/1.73 m2 (mL/min/1.73m2) Glucose (70-100) mg/dL Lactate (0.6-1.4) mmol/L Calcium (8.5-10.1) mg/dL Total Bilirubin (0.2-1.0) mg/dL AST (15-37) U/L ALT (12-78) U/L Alkaline Phosphatase (46-116) U/L Troponin I (0.00-0.06) ng/mL Total Protein (6.4-8.2) g/dL Albumin (3.4-5.0) g/dL Urine Color (Yellow) Yellow Urine Clarity Cloudy Urine pH (5-8) 5.5 Ur Specific [place] (1.005-1.025) 1.020 Urine Protein (Negative) mg/dL Negative Urine Ketones (Negative) mg/dL Negative Urine Blood (Negative) Moderate H Urine Nitrite (Negative) Negative Urine Bilirubin (Negative) Negative Urine Urobilinogen (Up TO 0.2) EU/dL 0.2 Ur Leukocyte Esterase (Negative) Large H Urine RBC (0-2) >50 H Urine WBC (0-5) HPF >50 Ur Epithelial Cells (Negative) HPF Negative Urine Crystals (Negative) HPF Negative Urine Bacteria (Negative) HPF Many Urine Casts (Negative) LPF Negative Urine Mucus (Negative) Negative Urine Other (Negative) Many yeast Ur Culture Indicated? Yes Urine Glucose (Negative) mg/dL Negative ECG Data Attestation: I personally reviewed and interpreted this ECG (s) as follows: Interpretation: EKG shows sinus tach at 120 with normal axis, no acute ischemic changes, nondiagnostic EKG. HPI General Mode of arrival: EMS . Date/Time Provider Initiated Documentation: 09/21/18 14:09 . Limitations to Documentation: no limitations . Information obtained by: patient, RN notes reviewed and old records reviewed . HPI Narrative: Prema Watson is a 62-year-old woman with history of CHF, A. fib , breast cancer, COPD, GERD, hyperlipidemia, gastric bypass presenting to the emergency department with clots and an hepatobiliary drainage bag. Per record review: Pt has h/o ascending cholangitis admitted from [facility] Emergency Department on 09/18 with reported bloody drainage from her biliary drain. She was previously admitted to [facility] 08/30 through 09/09/2018 with a diagnosis of Ascending Cholangitis and UTI with resultant septic shock, treated with IV Antibiotics and sent home on Cipro and Flagyl that completed 3 days prior to her admission here. She also had a biliary drain placed during that hospitalization. She then presented to the ER at [facility] with complaint of blood draining from her biliary tube, decreased appetite, poor oral intake, nausea, and abdominal pain. Initial work-up in the emergency room consisted of a CT of the abdomen and pelvis which showed the biliary tube to be in proper placement without hematoma or absces. Labwork failed to show a leukocytosis and without anemia, but with an elevated BUN and creatinine of 29 and 1.49 and elevated LFT's w/ total bilirubin of 5.3, AST 57, alkaline phosphatase of 371 and elevated protime of 13.7/INR 1.4. These labs all represented worsening values compared to her discharge labs from [facility]. Following discussion with GI from [facility] no urgent need for transfer was seen, and recommendations were made for admission with IVF hydration and monitoring of vitals, labs, and blood loss from the biliary tube. Advised to arrange transfer in the morning for IR biliary tube replacement if needed. As the patient had completed all of her antibiotic treatment for cholangitis and there was no evidence of recurrent infection ( i.e. patient is afebrile, no leukocytosis and no acute findings on her CT scan) they did not recommend antibiotics. Following admission the patient's hematobilia resolved and her LFTs, including ALT, Alk Phos, and Total Bili improved significantly and at time of discharge her AST/ALT and Total Bilirubin have normalized, with a minimal and chronic appearing elevation in alk phos. She had an elevation in temperature with a fever of 38 on 09/18 in the setting of improving LFTs. Further work-up revealed evidence of a UTI. Patient has appeared without acute needs and not ill appearing or toxic. She has however had continuously low blood pressure readings, now ongoing since the time of her admission on 09/17. Systolic ranges of 70-90's mostly recorded since that time. She has also been intermittently minimally tachycardic, but with return of HR back to the 60-80's in between. Discussion with nursing appears to indicate that the patient has been exceedingly difficult to measure blood pressure on - staff have had to resort to checking pressures on patient's one wrist or in her lower extremity, and due to her body habitus having a difficult time with the readings. Of note, Mrs. Watson has refused to allow bp checks on her one upper extremity due to her history of Breast Ca. She has been under treatment for her UTI for over 24 hours, without any further fevers or leukocytosis. Patient now returning to the emergency department after discharge yesterday with clots in her hepatobiliary drainage per visiting nurse. Patient reports that she has continued general malaise that she had during her admission to the hospital, unchanged since discharge. She reports upper abdominal pain, also unchanged from her admission. She has had no fever, vomiting, shortness of breath, cough, diarrhea. Patient reports that she would not come to the emergency department today except for being set by visiting nurse for clots in the bag. Related Data Home Medications Medication Instructions Recorded Confirmed lorazepam 0.5 mg PO QID PRN 03/09/13 09/21/18 pantoprazole 40 mg PO DAILY 03/09/13 09/21/18 clonazepam 2 tab PO HS 10/03/14 09/21/18 sertraline [Zoloft] 100 mg PO DAILY tab-cap 10/03/14 09/21/18 albuterol sulfate [ProAir HFA] 2 puff INHALATION .Q4-6H PRN PRN 10/26/14 calcium carbonate-vitamin D3 2 tab PO BID 10/26/14 09/21/18 cyclobenzaprine 10 mg PO BID 10/26/14 09/21/18 dicyclomine 10 mg PO BID 10/26/14 09/21/18 ferrous sulfate 325 mg PO DAILY 10/26/14 09/21/18 fluticasone-salmeterol [Advair HFA] 2 puff INHALATION BID 10/26/14 09/21/18 loratadine 10 mg PO DAILY PRN 10/26/14 09/21/18 loperamide [Imodium A-D] 2 mg PO QID PRN 12/09/16 09/21/18 anastrozole [Arimidex] 1 mg PO DAILY 12/18/16 09/21/18 glucosamine sulfate 2KCl 500 mg PO BID 12/18/16 09/21/18 ascorbic acid (vitamin C) [Vitamin 500 mg PO BID 05/30/17 09/21/18 C] cyanocobalamin (vitamin B-12) 100 mcg PO DAILY 05/30/17 09/21/18 [Vitamin B-12] ergocalciferol (vitamin D2) 50,000 units PO DIRECTED 05/30/17 09/21/18 [Vitamin D2] nitroglycerin [Nitrostat] 0.4 mg SUBLINGUAL DIRECTED PRN 05/30/17 09/21/18 sennosides-docusate sodium 2 ea PO BID 05/30/17 09/21/18 [Senna-S] zolpidem 10 mg PO HS PRN PRN 05/30/17 09/21/18 acetaminophen 1,000 mg PO Q6H PRN tab-cap 02/12/18 09/21/18 ipratropium-albuterol 3 ml INHALATION QID 02/12/18 09/21/18 methylphenidate HCl 10 mg PO BID 02/12/18 09/21/18 nystatin (bulk) 1 ea MISCELLANEOUS TID jad 02/12/18 09/21/18 oxycodone-acetaminophen [Percocet] 1 ea PO QID tab 02/12/18 09/21/18 naloxone [Narcan] 4 mg NS as directed 1 Days #2 spray 02/16/18 09/21/18 metoprolol tartrate 25 mg PO TID 09/18/18 09/21/18 ciprofloxacin HCl 500 mg PO BID #10 tab 09/20/18 09/21/18 Previous Rx's Medication Instructions Recorded naloxone [Narcan] 4 mg NS as directed 1 Days #2 spray 02/16/18 ciprofloxacin HCl 500 mg PO BID #10 tab 09/20/18 Allergies Allergy/AdvReac Type Severity Reaction Status Date / Time haloperidol Allergy Severe seizure Unverified 09/21/18 14:58 cephalexin monohydrate Allergy Mild Unverified 09/21/18 14:58 [From Keflex] ciprofloxacin [From Cipro] Allergy Mild Hives Unverified 09/21/18 14:58 dextroamphetamine Allergy Unknown Unverified 09/21/18 14:58 doxylamine Allergy Unknown Unverified 09/21/18 14:58 eszopiclone [From Lunesta] Allergy Unknown Unverified 09/21/18 14:58 Penicillins Allergy Unknown Unverified 09/21/18 14:58 pseudoephedrine Allergy Unknown Unverified 09/21/18 14:58 Sulfa (Sulfonamide Allergy Unknown Unverified 09/21/18 14:58 Antibiotics) trazodone Allergy Unknown Unverified 09/21/18 14:58 venlafaxine HCl AdvReac Severe crazy Unverified 09/21/18 14:58 [From Effexor] dextromethorphan HBr AdvReac Intermediate muscle Unverified 09/21/18 14:58 [From NyQuil] twitch doxylamine succinate AdvReac Intermediate muscle Unverified 09/21/18 14:58 [From NyQuil] twitch omeprazole AdvReac Intermediate Diarrhea Unverified 09/21/18 14:58 pseudoephedrine HCl AdvReac Intermediate muscle Unverified 09/21/18 14:58 [From NyQuil] twitch chlorpromazine HCl AdvReac passes out Unverified 09/21/18 14:58 [From Thorazine] General GRISELDA: 2 Review of Systems Review of Systems Constitutional: denies fevers Eyes: denies eye pain ENT: denies facial pain, dental pain, sore throat Cardiovascular: denies chest pain, edema Respiratory: denies SOB, cough GI: reports abdominal pain, denies vomiting, diarrhea : denies flank pain MSK: denies back pain, neck pain, arthralgias, myalgias Skin: denies rash Neuro: denies headaches, lightheadedness, weakness PFSH Morbid obesity with BMI of 45.0-49.9, adult (Chronic) Depression (Chronic) History of DVD (Chronic) DJD (degenerative joint disease) (Chronic) History of PSVT (paroxysmal supraventricular tachycardia) (Chronic) Chronic back pain (Chronic) Bilateral cataracts (Chronic) Paroxysmal atrial fibrillation (Chronic) Diastolic heart failure (Chronic) Atrial fibrillation (Chronic) Right heart failure with reduced right ventricular function (Chronic) STACEY (obstructive sleep apnea) (Chronic) ADD (attention deficit disorder) Angina at rest Asthma Atrial fibrillation Breast cancer Chest pain, atypical Chronic pain Chronic rhinitis Cirrhosis of liver Compression fracture of spine Decreased visual acuity Depression Diastolic heart failure GI (gastrointestinal bleed) Gastric bypass status for obesity History of paroxysmal supraventricular tachycardia Hx of deep venous thrombosis Hyperparathyroidism , secondary, non-renal Hypertension IBS (irritable bowel syndrome) Insomnia Morbid obesity STACEY (obstructive sleep apnea) Osteoarthritis Osteopenia Oxygen dependent PUD (peptic ulcer disease) Pulmonary HTN Superficial thrombophlebitis Tricuspid regurgitation History of biliary T-tube placement (Resolved 09/01/18) Breast, Mastectomy EGD - MAC Gastric Bypass Social History caregiver/support person: No household members: none housing: apartment marital status: single lives independently: Yes number of children: 2 number of grandchildren: 1 senior living: No current occupational status: disabled Smoking/Tobacco Use Status: Former Tobacco Use Exam Narrative Exam Narrative: Constitutional:chronically ill-appearing, pleasant, conversing normally HENT: head atraumatic, normocephalic normal inspection, mucous membranes moist Eyes: conjunctiva normal, sclera normal, pupils 3mm b/l Neck: no stridor, normal ROM, trachea midline Chest: normal inspection Resp: normal work of breathing, LCTAB Cardio: Tachycardic, irregular rhythm, no murmur appreciated GI: abdomen soft, mildly tender in the left upper and right upper quadrants, hepatobiliary drain in place, site is clean dry and intact, moderate amount of karen blood and hepatobiliary drain bag without clots Skin: warm, dry, normal color, no rash Neuro: alert, not altered Ext: no edema Psych: normal mood, normal affect, normal behavior
[2018-09-21] MEDS: Normal Saline 250 ML IV (14:50)
[2018-09-21 14:53] LABS: Absolute Basophil Count 0.03 k/cumm (0.0-0.2); Absolute Eosinophil Count 0.42 k/cumm (0.0-0.7); Absolute Lymphocyte Count 0.75 k/cumm (1.2-3.4); Absolute Monocyte Count 0.39 k/cumm (0.11-0.7); Absolute Neutrophil Count 5.12 k/cumm (1.2-6.7); Basophils % 0.4; Eosinophils % 6.3; HCT 40.6 % (36.0-46.0); HGB 12.2 g/dL (12.0-15.5); Lymphocytes % 11.2; Mean Corpuscular Hemoglobin 32.8 pg (27.0-33.0); Mean Corpuscular Volume 109.1 fL (80-95); Mean Platelet Volume 10.8 fL (8.0-11.0); Monocytes % 5.8; Neutrophils % 76.3; Platelet Count 157 x1000/uL (130-400); RBC 3.72 m/cumm (4.00-5.20); RBC Distribution Width 13.6 % (11.7-14.6); White Blood Cell Count 6.71 k/cumm (4.4-10.8)
[2018-09-21 14:54] LABS: Lactate-non-spesis 1.3 mmol/L (0.6-1.4)
[2018-09-21 15:07] LABS: Diff Comment Diff Reviewed
[2018-09-21 15:11] LABS: ALT 27 U/L (12-78); AST 32 U/L (15-37); Albumin 2.5 g/dL (3.4-5.0); Alkaline Phosphatase 233 U/L (46-116); BUN 6 mg/dL (7-18); Bilirubin, Total 1.8 mg/dL (0.2-1.0); CREATININE 0.78 mg/dL (0.55-1.02); Calcium 8.5 mg/dL (8.5-10.1); Chloride 101 mmol/L (98-107); Glucose 75 mg/dL (70-100); Macrocytosis 1+; Potassium 4.2 mmol/L (3.5-5.1); Sodium 138 mmol/L (136-145); Total Protein 6.4 g/dL (6.4-8.2); Troponin I < 0.02 ng/mL (0.00-0.06)
[2018-09-21] MEDS: Normal Saline 1,000 ML 75 ML IV (15:28)
[2018-09-21] MEDS: oxyCODONE 5 mg/Acetaminophen 325 mg TAB 1 TAB PO ×2 (16:10→22:14)
[2018-09-21 16:11] LABS: Bilirubin Negative (Negative); Blood Moderate (Negative); Clarity Cloudy; Glucose Negative (Negative); Ketones Negative (Negative); Leukocyte Esterase Large (Negative); Nitrite Negative (Negative); Urobilinogen 0.2 EU/dL (Up TO 0.2); pH 5.5 (5-8)
[2018-09-21] MEDS: Albuterol/Ipratropium 3 ML UPD VIAL IH (16:13)
[2018-09-21 16:24] LABS: RBC >50 (0-2); WBC >50 HPF (0-5)
[2018-09-21 16:25] LABS: Epithelial Cells Negative HPF (Negative)
[2018-09-21 16:28] LABS: Bacteria Many HPF (Negative); C & S Indicated? Yes; Casts Negative LPF (Negative); Crystals Negative HPF (Negative); Mucus Negative (Negative)
--- NOTE | 2018-09-21 16:32 | W.PM.HP.N ---
Date of service: 09/21/18 Time of Service: 16:32 Assessment and Plan (1) Hematobilia: Current visit: Yes Status: Acute Initial admission from 09/18 with complete resolution of bleeding and improvement/normalization of LFTs back to baseline. Patient had a low grade fever in the setting of continued improvement in her LFTs and resolution of her nausea and abdominal discomfort. Work-up revealed evidence of potential UTI. She was initiated on antibiotic therapy for a urinary tract infection, and had been afebrile for well over 24 hours. Currently with recurrence of blood via drain. Will plan on close monitoring overnight, with repeat labs including Hgb and LFTs in the morning. Will discuss with [facility] as well if warranted, but at this point patient is stable and does not require urgent intervention. Also without bed availability at [facility]. (2) Urinary tract infection: Current visit: Yes Status: Acute Urinalysis from 09/19 with clear evidence of infection with large Leukocyte Esterase, and >50 WBCs, but culture with >100,000 of mixed gram positive alvarado, noted to be possible contaminated collection. Also with growth of jak albicans. Review of patient's prior Urine Culture results from 08/30/2018, 09/2017, 05/2017, and 10/2016 all with growth of E.Coli sensitive to Fluoroquinolone therapy. Patient with noted allergy to Cipro, but had completed a course of Cipro after discharge from [facility]. She was discharged on a course of Ciprofloxacin at time of discharge yesterday. However, despite antibiotic therapy there is clear evidence of pyuria with Leuk Esterase in her urine again. There was no evidence of pyelonephritis on her CT from last admission - highly doubt invasive bladder or kidney infection. However, given current hypotension and tachycardia (see below) despite antibiotic therapy will initiate treatment with oral Fluconazole, and change antibiotic therapy to Ceftriaxone, and monitor repeat urine cultures. (3) Diastolic heart failure: Current visit: Yes Status: Chronic (4) Atrial fibrillation: Current visit: Yes Status: Chronic Currently in afib with mild tachycardia - patient reports noncompliance with BB today, but was intermittently tachycardic last visit too. 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 Replete lytes, and treat infection as above. (5) Right heart failure with reduced right ventricular function: Current visit: Yes Status: Chronic Per review of records. Noted. (6) STACEY (obstructive sleep apnea): Current visit: Yes Status: Chronic Continue CPAP therapy. (7) Hypotension: Current visit: Yes Status: Acute Currently hypotensive, and patient with significantly low systolic values during her last hospitalization. She was noted to have hypotension throughout her hospital course from initial evaluation until her time of discharge, patient's blood pressure measurements have been less than ideal and problematic due to body habitus and patient preference. She is not dehydrated and does not appear septic. Will admit to ICU and attempt arterial line for accurate blood pressure monitoring overnight to correlate with peripheral readings. (8) DVT prophylaxis: Current visit: Yes Status: Acute Evidence of bloody output from Biliary drain without anemia. Hold on SC lovenox and initiate SCDs. History of Present Illness Chief Complaint: Hematobilia Narrative: 62 year old woman with a prior medical history of ascending cholangitis, just discharged following an admission for hematobilia, presents back to [facility] Emergency Department per request of home health nursing with reported return of blood with clots in her Hepatobiliary drain bag. Ms. Watson has a prior history of morbid obesity, Breast Ca, CAD, COPD, STACEY, PHTN with severe TR, and GERD. She was admitted to [facility] 08/30 through 09/09/2018 with a diagnosis of Ascending Cholangitis and UTI with resultant septic shock, treated with IV Antibiotics and sent home on Cipro and Flagyl that she completed. She also had a biliary drain placed during that hospitalization. She initially presented to [facility] on 09/18 with complaint of blood draining from her biliary tube, decreased appetite, poor oral intake, nausea, and abdominal pain. Initial work-up in the emergency room consisted of a CT scan showing the proper placement of the biliary tube without a hematoma or abscess. Labwork failed to show a leukocytosis and without anemia, but with evidence of an Acute Kidney Injury and elevated LFTs, including total bilirubin. Following discussion with GI recommendations were made for admission with IVF hydration and monitoring of vitals, labs, and blood loss from the biliary tube, with transfer for IR biliary tube replacement if needed. As the patient had completed all of her antibiotic treatment for cholangitis and there was no evidence of recurrent infection they did not recommend antibiotics. Following admission the patient's hematobilia resolved and her LFTs and total Bili improved significantly and at time of discharge her AST/ALT and Total Bilirubin had normalized, with a minimal and chronic appearing elevation in alk phos. She had an elevation in temperature with a fever of 38 on 09/18 in the setting of improving LFTs. Further work-up revealed evidence of a UTI, and she was initiated on antibiotic therapy without recurrence of a fever. She was discharged in stable condition. However, upon return home Visiting Nursing reported recurrence of clots and bloody drainage in her bag, and she was sent in to the ED for reevaluation. Work-up here shows worsening in her total Bilirubin and Alk Phos, with normal AST and ALT. Of note, her urinalysis continues to be markedly abnormal with evidence of pyuria. The patient also was also noted to have low blood pressure readings during the entirety of her last hospitalization, with systolic ranges of 70-90's. She continues to be hypotensive. Discussion with nursing during her last hospital stay appeared to indicate that the patient has been exceedingly difficult to measure blood pressure on - staff have had to resort to checking pressures on patient's one wrist or in her lower extremity, and due to her body habitus having a difficult time with the readings. Of note, Mrs. Watson has refused to allow bp checks on her one upper extremity due to her history of Breast Ca. She had otherwise remained afebrile and non-toxic appearing, and continues to be today upon presentation to the ED. Given the worsening LFTs and recurrence of bloody drainage in the hepatobiliary drain the patient was referred for admission for further evaluation and treatment. Review of Systems Review of Systems All systems reviewed & are unremarkable except as noted in HPI and below Meds Home Medications Medication Instructions Recorded Confirmed Type lorazepam 0.5 mg PO QID PRN 03/09/13 09/21/18 History pantoprazole 40 mg PO DAILY 03/09/13 09/21/18 History clonazepam 2 tab PO HS 10/03/14 09/21/18 History sertraline [Zoloft] 100 mg PO DAILY tab-cap 10/03/14 09/21/18 History albuterol sulfate [ProAir HFA] 2 puff INHALATION .Q4-6H PRN PRN 10/26/14 09/21/18 History calcium carbonate-vitamin D3 2 tab PO BID 10/26/14 09/21/18 History cyclobenzaprine 10 mg PO BID 10/26/14 09/21/18 History dicyclomine 10 mg PO BID 10/26/14 09/21/18 History ferrous sulfate 325 mg PO DAILY 10/26/14 09/21/18 History fluticasone-salmeterol [Advair HFA] 2 puff INHALATION BID 10/26/14 09/21/18 History loratadine 10 mg PO DAILY PRN 10/26/14 09/21/18 History loperamide [Imodium A-D] 2 mg PO QID PRN 12/09/16 09/21/18 History anastrozole [Arimidex] 1 mg PO DAILY 12/18/16 09/21/18 History glucosamine sulfate 2KCl 500 mg PO BID 12/18/16 09/21/18 History ascorbic acid (vitamin C) [Vitamin 500 mg PO BID 05/30/17 09/21/18 History C] cyanocobalamin (vitamin B-12) 100 mcg PO DAILY 05/30/17 09/21/18 History [Vitamin B-12] ergocalciferol (vitamin D2) 50,000 units PO DIRECTED 05/30/17 09/21/18 History [Vitamin D2] nitroglycerin [Nitrostat] 0.4 mg SUBLINGUAL DIRECTED PRN 05/30/17 09/21/18 History sennosides-docusate sodium 2 ea PO BID 05/30/17 09/21/18 History [Senna-S] zolpidem 10 mg PO HS PRN PRN 05/30/17 09/21/18 History acetaminophen 1,000 mg PO Q6H PRN tab-cap 02/12/18 09/21/18 History ipratropium-albuterol 3 ml INHALATION QID 02/12/18 09/21/18 History methylphenidate HCl 10 mg PO BID 02/12/18 09/21/18 History nystatin (bulk) 1 ea MISCELLANEOUS TID jad 02/12/18 09/21/18 History oxycodone-acetaminophen [Percocet] 1 ea PO QID tab 02/12/18 09/21/18 History naloxone [Narcan] 4 mg NS as directed 1 Days #2 spray 02/16/18 09/21/18 Rx metoprolol tartrate 25 mg PO TID 09/18/18 09/21/18 History ciprofloxacin HCl 500 mg PO BID #10 tab 09/20/18 09/21/18 Rx Allergies Allergy/AdvReac Type Severity Reaction Status Date / Time haloperidol Allergy Severe seizure Unverified 09/21/18 14:58 cephalexin monohydrate Allergy Mild Unverified 09/21/18 14:58 [From Keflex] ciprofloxacin [From Cipro] Allergy Mild Hives Unverified 09/21/18 14:58 dextroamphetamine Allergy Unknown Unverified 09/21/18 14:58 doxylamine Allergy Unknown Unverified 09/21/18 14:58 eszopiclone [From Lunesta] Allergy Unknown Unverified 09/21/18 14:58 Penicillins Allergy Unknown Unverified 09/21/18 14:58 pseudoephedrine Allergy Unknown Unverified 09/21/18 14:58 Sulfa (Sulfonamide Allergy Unknown Unverified 09/21/18 14:58 Antibiotics) trazodone Allergy Unknown Unverified 09/21/18 14:58 venlafaxine HCl AdvReac Severe crazy Unverified 09/21/18 14:58 [From Effexor] dextromethorphan HBr AdvReac Intermediate muscle Unverified 09/21/18 14:58 [From NyQuil] twitch doxylamine succinate AdvReac Intermediate muscle Unverified 09/21/18 14:58 [From NyQuil] twitch omeprazole AdvReac Intermediate Diarrhea Unverified 09/21/18 14:58 pseudoephedrine HCl AdvReac Intermediate muscle Unverified 09/21/18 14:58 [From NyQuil] twitch chlorpromazine HCl AdvReac passes out Unverified 09/21/18 14:58 [From Thorazine] Exam Narrative Exam Narrative: General: Patient appears comfortable lying in bed, AAOX3, NAD. Morbidly obese. Neck: Supple CV: Regular, nontachycardic, S1S2, No rubs, murmurs, or gallops. Pulmonary: Clear to auscultation bilaterally, no crackles, wheezing, or rhonchi on exam limited by body habitus. Abdomen: + Bowel Sounds, soft, nontender, nondistended. Hepatobiliary drainage bag with bloody output, clots noted. Vascular: + b/l LE edema Neurologic: CN II-XII grossly intact. No focal deficits. Psych: Normal mood and affect. Results Labs : 09/21/18 14:45 09/21/18 14:45 Laboratory Results - last 24 hr 09/21/18 09/21/18 09/21/18 14:45 14:45 14:45 WBC 6.71 RBC 3.72 L Hgb 12.2 Hct 40.6 MCV 109.1 H MCH 32.8 MCHC 30.0 L RDW 13.6 Plt Count 157 MPV 10.8 Immature Gran % 0.0 Neutrophils % 76.3 Lymphocytes % 11.2 Monocytes % 5.8 Eosinophils % 6.3 Basophils % 0.4 Absolute Neutrophils 5.12 Absolute Lymphocytes 0.75 L Absolute Monocytes 0.39 Absolute Eosinophils 0.42 Absolute Basophils 0.03 Differential Comment Diff reviewed RBC Morphology See below Macrocytosis 1+ Sodium 138 Potassium 4.2 Chloride 101 Carbon Dioxide 31.0 Anion Gap 6.0 BUN 6 L Creatinine 0.78 Estimated GFR/1.73 m2 >= 60.00 Glucose 75 Lactate 1.3 Calcium 8.5 Total Bilirubin 1.8 H AST 32 ALT 27 Alkaline Phosphatase 233 H Troponin I < 0.02 Total Protein 6.4 Albumin 2.5 L Urine Color Urine Clarity Urine pH Ur Specific [place] Urine Protein Urine Ketones Urine Blood Urine Nitrite Urine Bilirubin Urine Urobilinogen Ur Leukocyte Esterase Urine RBC Urine WBC Ur Epithelial Cells Urine Crystals Urine Bacteria Urine Casts Urine Mucus Urine Other Ur Culture Indicated? Urine Glucose 09/21/18 16:00 WBC RBC Hgb Hct MCV MCH MCHC RDW Plt Count MPV Immature Gran % Neutrophils % Lymphocytes % Monocytes % Eosinophils % Basophils % Absolute Neutrophils Absolute Lymphocytes Absolute Monocytes Absolute Eosinophils Absolute Basophils Differential Comment RBC Morphology Macrocytosis Sodium Potassium Chloride Carbon Dioxide Anion Gap BUN Creatinine Estimated GFR/1.73 m2 Glucose Lactate Calcium Total Bilirubin AST ALT Alkaline Phosphatase Troponin I Total Protein Albumin Urine Color Yellow Urine Clarity Cloudy Urine pH 5.5 Ur Specific [place] 1.020 Urine Protein Negative Urine Ketones Negative Urine Blood Moderate H Urine Nitrite Negative Urine Bilirubin Negative Urine Urobilinogen 0.2 Ur Leukocyte Esterase Large H Urine RBC >50 H Urine WBC >50 Ur Epithelial Cells Negative Urine Crystals Negative Urine Bacteria Many Urine Casts Negative Urine Mucus Negative Urine Other Many yeast Ur Culture Indicated? Yes Urine Glucose Negative Last Vital Signs Temp 36.7 C 09/21/18 16:15 Pulse 127 H 09/21/18 16:00 Resp 20 09/21/18 15:04 BP 81/55 L 09/21/18 16:00 Pulse Ox 93 L 09/21/18 16:01
--- NOTE | 2018-09-21 16:49 | HPE_ITS ---
Date of service: 09/21/18 Time of Service: 16:32 Assessment and Plan (1) Hematobilia: Current visit: Yes Status: Acute Initial admission from 09/18 with complete resolution of bleeding and improvement/normalization of LFTs back to baseline. Patient had a low grade fever in the setting of continued improvement in her LFTs and resolution of her nausea and abdominal discomfort. Work-up revealed evidence of potential UTI. She was initiated on antibiotic therapy for a urinary tract infection, and had been afebrile for well over 24 hours. Currently with recurrence of blood via drain. Will plan on close monitoring overnight, with repeat labs including Hgb and LFTs in the morning. Will discuss with [facility] as well if warranted, but at this point patient is stable and does not require urgent intervention. Also without bed availability at [facility]. (2) Urinary tract infection: Current visit: Yes Status: Acute Urinalysis from 09/19 with clear evidence of infection with large Leukocyte Esterase, and >50 WBCs, but culture with >100,000 of mixed gram positive alvarado, noted to be possible contaminated collection. Also with growth of jak albicans. Review of patient's prior Urine Culture results from 2017, 09/2017, 05/2017, and 10/2016 all with growth of E.Coli sensitive to Fluoroquinolone therapy. Patient with noted allergy to Cipro, but had completed a course of Cipro after discharge from [facility]. She was discharged on a course of Ciprofloxacin at time of discharge yesterday. However, despite antibiotic therapy there is clear evidence of pyuria with Leuk Esterase in her urine again. There was no evidence of pyelonephritis on her CT from last admission - highly doubt invasive bladder or kidney infection. However , given current hypotension and tachycardia (see below) despite antibiotic therapy will initiate treatment with oral Fluconazole, and change antibiotic therapy to Ceftriaxone, and monitor repeat urine cultures. (3) Diastolic heart failure: Current visit: Yes Status: Chronic (4) Atrial fibrillation: Current visit: Yes Status: Chronic Currently in afib with mild tachycardia - patient reports noncompliance with BB today, but was intermittently tachycardic last visit too. Will monitor on corner cutter overnight, and adjust medications accordingly. Replete lytes , and treat infection as above. (5) Right heart failure with reduced right ventricular function: Current visit: Yes Status: Chronic Per review of records. Noted. (6) STACEY (obstructive sleep apnea): Current visit: Yes Status: Chronic Continue CPAP therapy. (7) Hypotension: Current visit: Yes Status: Acute Currently hypotensive, and patient with significantly low systolic values during her last hospitalization. She was noted to have hypotension throughout her hospital course from initial evaluation until her time of discharge, patient 's blood pressure measurements have been less than ideal and problematic due to body habitus and patient preference. She is not dehydrated and does not appear septic. Will admit to ICU and attempt arterial line for accurate blood pressure monitoring overnight to correlate with peripheral readings. (8) DVT prophylaxis: Current visit: Yes Status: Acute Evidence of bloody output from Biliary drain without anemia. Hold on SC lovenox and initiate SCDs. History of Present Illness Chief Complaint: Hematobilia Narrative: 62 year old woman with a prior medical history of ascending cholangitis, just discharged following an admission for hematobilia, presents back to [facility] Emergency Department per request of home health nursing with reported return of blood with clots in her Hepatobiliary drain bag. Ms. Watson has a prior history of morbid obesity, Breast Ca, CAD, COPD, STACEY, PHTN with severe TR, and GERD. She was admitted to [facility] 08/30 through 09/09/2018 with a diagnosis of Ascending Cholangitis and UTI with resultant septic shock, treated with IV Antibiotics and sent home on Cipro and Flagyl that she completed. She also had a biliary drain placed during that hospitalization. She initially presented to [facility] on 09/18 with complaint of blood draining from her biliary tube, decreased appetite, poor oral intake, nausea, and abdominal pain. Initial work-up in the emergency room consisted of a CT scan showing the proper placement of the biliary tube without a hematoma or abscess. Labwork failed to show a leukocytosis and without anemia, but with evidence of an Acute Kidney Injury and elevated LFTs, including total bilirubin. Following discussion with GI recommendations were made for admission with IVF hydration and monitoring of vitals, labs, and blood loss from the biliary tube, with transfer for IR biliary tube replacement if needed. As the patient had completed all of her antibiotic treatment for cholangitis and there was no evidence of recurrent infection they did not recommend antibiotics. Following admission the patient's hematobilia resolved and her LFTs and total Bili improved significantly and at time of discharge her AST/ALT and Total Bilirubin had normalized, with a minimal and chronic appearing elevation in alk phos. She had an elevation in temperature with a fever of 38 on 09/18 in the setting of improving LFTs. Further work-up revealed evidence of a UTI, and she was initiated on antibiotic therapy without recurrence of a fever. She was discharged in stable condition. However, upon return home Visiting Nursing reported recurrence of clots and bloody drainage in her bag, and she was sent in to the ED for reevaluation. Work-up here shows worsening in her total Bilirubin and Alk Phos, with normal AST and ALT. Of note, her urinalysis continues to be markedly abnormal with evidence of pyuria. The patient also was also noted to have low blood pressure readings during the entirety of her last hospitalization, with systolic ranges of 70-90's. She continues to be hypotensive. Discussion with nursing during her last hospital stay appeared to indicate that the patient has been exceedingly difficult to measure blood pressure on - staff have had to resort to checking pressures on patient's one wrist or in her lower extremity, and due to her body habitus having a difficult time with the readings. Of note, Mrs. Watson has refused to allow bp checks on her one upper extremity due to her history of Breast Ca. She had otherwise remained afebrile and non-toxic appearing, and continues to be today upon presentation to the ED. Given the worsening LFTs and recurrence of bloody drainage in the hepatobiliary drain the patient was referred for admission for further evaluation and treatment. Review of Systems Review of Systems All systems reviewed & are unremarkable except as noted in HPI and below Meds Home Medications Medication Instructions Recorded Confirmed Type lorazepam 0.5 mg PO QID PRN 03/09/13 09/21/18 History pantoprazole 40 mg PO DAILY 03/09/13 09/21/18 History clonazepam 2 tab PO HS 10/03/14 09/21/18 History sertraline [Zoloft] 100 mg PO DAILY tab-cap 10/03/14 09/21/18 History albuterol sulfate [ProAir HFA] 2 puff INHALATION .Q4-6H PRN PRN 10/26/14 History calcium carbonate-vitamin D3 2 tab PO BID 10/26/14 09/21/18 History cyclobenzaprine 10 mg PO BID 10/26/14 09/21/18 History dicyclomine 10 mg PO BID 10/26/14 09/21/18 History ferrous sulfate 325 mg PO DAILY 10/26/14 09/21/18 History fluticasone-salmeterol [Advair HFA] 2 puff INHALATION BID 10/26/14 09/21/18 History loratadine 10 mg PO DAILY PRN 10/26/14 09/21/18 History loperamide [Imodium A-D] 2 mg PO QID PRN 12/09/16 09/21/18 History anastrozole [Arimidex] 1 mg PO DAILY 12/18/16 09/21/18 History glucosamine sulfate 2KCl 500 mg PO BID 12/18/16 09/21/18 History ascorbic acid (vitamin C) [Vitamin 500 mg PO BID 05/30/17 09/21/18 History C] cyanocobalamin (vitamin B-12) 100 mcg PO DAILY 05/30/17 09/21/18 History [Vitamin B-12] ergocalciferol (vitamin D2) 50,000 units PO DIRECTED 05/30/17 09/21/18 History [Vitamin D2] nitroglycerin [Nitrostat] 0.4 mg SUBLINGUAL DIRECTED PRN 05/30/17 09/21/18 History sennosides-docusate sodium 2 ea PO BID 05/30/17 09/21/18 History [Senna-S] zolpidem 10 mg PO HS PRN PRN 05/30/17 09/21/18 History acetaminophen 1,000 mg PO Q6H PRN tab-cap 02/12/18 09/21/18 History ipratropium-albuterol 3 ml INHALATION QID 02/12/18 09/21/18 History methylphenidate HCl 10 mg PO BID 02/12/18 09/21/18 History nystatin (bulk) 1 ea MISCELLANEOUS TID jad 02/12/18 09/21/18 History oxycodone-acetaminophen [Percocet] 1 ea PO QID tab 02/12/18 09/21/18 History naloxone [Narcan] 4 mg NS as directed 1 Days #2 spray 02/16/18 09/21/18 Rx metoprolol tartrate 25 mg PO TID 09/18/18 09/21/18 History ciprofloxacin HCl 500 mg PO BID #10 tab 09/20/18 09/21/18 Rx Allergies Allergy/AdvReac Type Severity Reaction Status Date / Time haloperidol Allergy Severe seizure Unverified 09/21/18 14:58 cephalexin monohydrate Allergy Mild Unverified 09/21/18 14:58 [From Keflex] ciprofloxacin [From Cipro] Allergy Mild Hives Unverified 09/21/18 14:58 dextroamphetamine Allergy Unknown Unverified 09/21/18 14:58 doxylamine Allergy Unknown Unverified 09/21/18 14:58 eszopiclone [From Lunesta] Allergy Unknown Unverified 09/21/18 14:58 Penicillins Allergy Unknown Unverified 09/21/18 14:58 pseudoephedrine Allergy Unknown Unverified 09/21/18 14:58 Sulfa (Sulfonamide Allergy Unknown Unverified 09/21/18 14:58 Antibiotics) trazodone Allergy Unknown Unverified 09/21/18 14:58 venlafaxine HCl AdvReac Severe crazy Unverified 09/21/18 14:58 [From Effexor] dextromethorphan HBr AdvReac Intermediate muscle Unverified 09/21/18 14:58 [From NyQuil] twitch doxylamine succinate AdvReac Intermediate muscle Unverified 09/21/18 14:58 [From NyQuil] twitch omeprazole AdvReac Intermediate Diarrhea Unverified 09/21/18 14:58 pseudoephedrine HCl AdvReac Intermediate muscle Unverified 09/21/18 14:58 [From NyQuil] twitch chlorpromazine HCl AdvReac passes out Unverified 09/21/18 14:58 [From Thorazine] Exam Narrative Exam Narrative: General: Patient appears comfortable lying in bed, AAOX3, NAD. Morbidly obese. Neck: Supple CV: Regular, nontachycardic, S1S2, No rubs, murmurs, or gallops. Pulmonary: Clear to auscultation bilaterally, no crackles, wheezing, or rhonchi on exam limited by body habitus. Abdomen: + Bowel Sounds, soft, nontender, nondistended. Hepatobiliary drainage bag with bloody output, clots noted. Vascular: + b/l LE edema Neurologic: CN II-XII grossly intact. No focal deficits. Psych: Normal mood and affect. Results Labs : 09/21/18 14:45 09/21/18 14:45 Laboratory Results - last 24 hr 09/21/18 09/21/18 09/21/18 14:45 14:45 14:45 WBC 6.71 RBC 3.72 L Hgb 12.2 Hct 40.6 MCV 109.1 H MCH 32.8 MCHC 30.0 L RDW 13.6 Plt Count 157 MPV 10.8 Immature Gran % 0.0 Neutrophils % 76.3 Lymphocytes % 11.2 Monocytes % 5.8 Eosinophils % 6.3 Basophils % 0.4 Absolute Neutrophils 5.12 Absolute Lymphocytes 0.75 L Absolute Monocytes 0.39 Absolute Eosinophils 0.42 Absolute Basophils 0.03 Differential Comment Diff reviewed RBC Morphology See below Macrocytosis 1+ Sodium 138 Potassium 4.2 Chloride 101 Carbon Dioxide 31.0 Anion Gap 6.0 BUN 6 L Creatinine 0.78 Estimated GFR/1.73 m2 >= 60.00 Glucose 75 Lactate 1.3 Calcium 8.5 Total Bilirubin 1.8 H AST 32 ALT 27 Alkaline Phosphatase 233 H Troponin I < 0.02 Total Protein 6.4 Albumin 2.5 L Urine Color Urine Clarity Urine pH Ur Specific [place] Urine Protein Urine Ketones Urine Blood Urine Nitrite Urine Bilirubin Urine Urobilinogen Ur Leukocyte Esterase Urine RBC Urine WBC Ur Epithelial Cells Urine Crystals Urine Bacteria Urine Casts Urine Mucus Urine Other Ur Culture Indicated? Urine Glucose 09/21/18 16:00 WBC RBC Hgb Hct MCV MCH MCHC RDW Plt Count MPV Immature Gran % Neutrophils % Lymphocytes % Monocytes % Eosinophils % Basophils % Absolute Neutrophils Absolute Lymphocytes Absolute Monocytes Absolute Eosinophils Absolute Basophils Differential Comment RBC Morphology Macrocytosis Sodium Potassium Chloride Carbon Dioxide Anion Gap BUN Creatinine Estimated GFR/1.73 m2 Glucose Lactate Calcium Total Bilirubin AST ALT Alkaline Phosphatase Troponin I Total Protein Albumin Urine Color Yellow Urine Clarity Cloudy Urine pH 5.5 Ur Specific [place] 1.020 Urine Protein Negative Urine Ketones Negative Urine Blood Moderate H Urine Nitrite Negative Urine Bilirubin Negative Urine Urobilinogen 0.2 Ur Leukocyte Esterase Large H Urine RBC >50 H Urine WBC >50 Ur Epithelial Cells Negative Urine Crystals Negative Urine Bacteria Many Urine Casts Negative Urine Mucus Negative Urine Other Many yeast Ur Culture Indicated? Yes Urine Glucose Negative Last Vital Signs Temp 36.7 C 09/21/18 16:15 Pulse 127 H 09/21/18 16:00 Resp 20 09/21/18 15:04 BP 81/55 L 09/21/18 16:00 Pulse Ox 93 L 09/21/18 16:01
[2018-09-21] MEDS: Glucosamine 500 MG CAP PO (20:59)
[2018-09-21] MEDS: Dicyclomine 10 MG CAP PO (20:59)
[2018-09-21] MEDS: Cyclobenzaprine 10 MG TAB PO (20:59)
[2018-09-21] MEDS: Ascorbic Acid 500 MG TAB PO (20:59)
[2018-09-21] MEDS: Budesonide/Formoterol 160/4.5 6 GM 60 PUFF INH IH (20:59)
[2018-09-21] MEDS: Calcium 600mg/Vit D 200U TAB 2 TAB PO (20:59)
[2018-09-21] MEDS: clonazePAM 1 MG TAB 2 MG PO (22:14)
[2018-09-21] MEDS: Zolpidem 10 MG TAB PO (22:14)
[2018-09-22] VITALS (36 sets, daily range): BP systolic 74–92; BP diastolic 38–55; PULSE 80–136; RESP 19–32; TEMP 37–38.2; O2SAT 91–100
[2018-09-22] MEDS: Normal Saline 1,000 ML 75 ML IV (02:15)
[2018-09-22] MEDS: Normal Saline 1,000 ML 1000 ML IV (06:20)
[2018-09-22 07:22] LABS: Abs Immature Grans 0.01 k/cumm (0.0-0.09); Absolute Basophil Count 0.02 k/cumm (0.0-0.2); Absolute Eosinophil Count 0.22 k/cumm (0.0-0.7); Absolute Lymphocyte Count 0.71 k/cumm (1.2-3.4); Absolute Monocyte Count 0.32 k/cumm (0.11-0.7); Absolute Neutrophil Count 3.36 k/cumm (1.2-6.7); Basophils % 0.4; Eosinophils % 4.7; HCT 34.9 % (36.0-46.0); HGB 10.8 g/dL (12.0-15.5); Immature Grans % 0.2; Lymphocytes % 15.3; Mean Corp. HGB Concentration 30.9 g/dL (32.0-36.0); Mean Corpuscular Hemoglobin 33.2 pg (27.0-33.0); Mean Corpuscular Volume 107.4 fL (80-95); Mean Platelet Volume 10.9 fL (8.0-11.0); Monocytes % 6.9; Neutrophils % 72.5; Platelet Count 126 x1000/uL (130-400); RBC 3.25 m/cumm (4.00-5.20); RBC Distribution Width 13.3 % (11.7-14.6); White Blood Cell Count 4.64 k/cumm (4.4-10.8)
[2018-09-22 07:29] LABS: C-Reactive Protein 2.63 mg/dL (0.0-0.3)
[2018-09-22 07:33] LABS: ALT 28 U/L (12-78); AST 30 U/L (15-37); Alkaline Phosphatase 291 U/L (46-116); BUN 4 mg/dL (7-18); Bilirubin, Total 2.7 mg/dL (0.2-1.0); CREATININE 0.64 mg/dL (0.55-1.02); Calcium 7.6 mg/dL (8.5-10.1); Chloride 101 mmol/L (98-107); Glucose 85 mg/dL (70-100); Magnesium 1.1 mg/dL (1.8-2.4); Potassium 3.7 mmol/L (3.5-5.1); Sodium 140 mmol/L (136-145); Total Protein 5.3 g/dL (6.4-8.2)
[2018-09-22 08:08] LABS: ESR 63 MM/HR (0-30)
[2018-09-22] MEDS: Albuterol/Ipratropium 3 ML UPD VIAL IH ×3 (08:20→20:31)
[2018-09-22] MEDS: Budesonide/Formoterol 160/4.5 6 GM 60 PUFF INH IH ×2 (08:21→20:33)
[2018-09-22] MEDS: MAGNESIUM SULFATE 4 GM/100 ML BAG IVPB (08:33)
--- NOTE | 2018-09-22 08:45 | PHARADMIT ---
Addendum entered by Raffaele Fernando III 10/04/18 12:46: Pharmacy Note Subjective MD and patient discussing her need for transfer to a tertiary care center to address her leaking biliary drain. Patient refuses transfer to [facility], MD gave patient choice of transfer hospital or return home with palliative care orders. Objective VS-OK BP- 93/59 K+4.5 Scr-0.62 H&H-9.5/32.8 Plts-165 wbc-6.55 Assessment Vancomycin & Merpenem continue for now. Had BM today Plan Decision will take place tomorrow Morning. Original Note: Addendum entered by Marilyn Lange 10/01/18 16:59: Pharmacy Note Subjective Biliary drain is working now. Objective vanco trough 18.1, wt 125, bp 100/64, albumin 2.0 Assessment no changes to vancomcyin, abx stay the same after Md consulted [facility](vanco,meropenem, metronidazole) Plan watch for changes in abx regimen, duration ? Original Note: Addendum entered by Raffaele Fernando III 09/30/18 14:47: Pharmacy Note Subjective injected both knees with Depo-Medrol,Bupivacaine/Lidocaine today. Albumin has not improved BP,yet. Objective VS-OK Pain: 05/05 BP-94/60 K+3.9 Mag-2.1 Albumin-2.2 H&H,Plts-OK BM today Assessment Vancomycin trough at 5pm today. Adjust Vanco if needed. Meropenum,Flagyl cocntinue. C-diff negative, Urine shows Cele....& Enterococcus (sens. to Vanco) Plan Patient refuses weights. Refuses SNF placement. Original Note: Addendum entered by Raffaele Fernando III 09/29/18 12:35: Pharmacy Note Subjective Patient returned from [facility] yesterday afternoon. Biliary drain is working now. Chronic low BP: MD is trying to increase the colloids in her blood with Albumin 25gm x 2 as she appears to be third spacing. No wgt today but was up 7kg yesterday. Objective VS-OK BP-92/55 K+3.4 Albumin-1.6 copious BM yesterday, MD to check for C-diff Assessment Lovenox has not restarted, [facility] to inform MD. Meropenum, Flagyl & Vancomycin IV continue. Plan Watch Weight, BP, C-diff Original Note: Addendum entered by Holly Dailey 09/28/18 16:35: Pharmacy Note Subjective plan was for the pt to go to [facility] for interrogation of biliary drain Objective BP-86/56 other VS okay Cl-108 SCr-0.40(down) Assessment Vanco trough came back at 21.3, dose held for 4 hours then started at a lower dose of 1000 mg Q12H vanco, metronidazole, and meropenem continue Plan continue to watch, BP, renal function, vanco dosing/narrowing of abx coverage Original Note: Addendum entered by Tran Farr 09/27/18 12:43: Pharmacy Note Subjective Objective BP 95/48, HR>100, Afebrile x24h, Pain 6/10, lytes good, LFT's down Micro blood: 3rd set has no growth x48h, Urine: gram positive 10-50K Assessment Baseline BP's are soft Magnesium corrected Continues on Meropenem Q4h, Vanco and Flagyl (see note below about Meropenem change) Plan watch for Micro sensitivities and narrow Anbx coverage Vanco level ordered for 09/28 @ 1300 Discussion about Midline access removal and Biliary drain-surgical consult Psych consult may be ordered, [place] [facility] [place] [facility] Original Note: Addendum entered by Tran Farr 09/26/18 13:34: Pharmacy Note Subjective Objective Temp 38.0 @ 0735 this morning, BP soft 98/53, HR 102, pain 5-7/10, Mag 1.4 Vanco trough today 26.6 Micro blood: 2nd & 3rd set show no growth x 24-48hrs Assessment Magnesium not yet replaced on Meropenem and Vanco Unusual that Vanco level was so high considering previous level was low/norm with slight dose adjustment, times of administration were ok, not quiet at steady state, but very close Meropenem changed from 2gram Q8h to 1gram Q4h (not sure the reasoning for this odd frequency) Flagyl IV added s/p fever, although has aneorbic coverage w/Meropenem Plan Vanco reduced to 1250mg IV q12h today WBC scan yesterday sent out for evaluation? not sure if it'll show in Micro Urine culture redrawn 08/3018 w/results pending MD would like Midline catheter pulled, as it may be a source of her infection, source could also be from where her IV contrast line infiltrated, both on the same arm Original Note: Addendum entered by Raffaele Fernando III 09/25/18 15:15: Pharmacy Note Subjective Meropenum restarted over night 2gm iv q8hrs, spiked fever (38.1C0 Objective VS-OK Lytes,SCr, WBC, H&H,Plts-unchanged BM yesterday Wgt-121.1 kg Assessment Meropenum changed to 1gm iv q4 hrs due to short shelf-life of mixed drug (one hr) Plan Watch for Vancomycin trough in AM, Meropenum in short supply, (late order by ) Original Note: Addendum entered by Raffaele Fernando III 09/24/18 16:39: Pharmacy Note Subjective Patient continues to be actively treated for Gram+ blood culture. CM reports patient is feeling better. Objective VS-OK BP-97/62 SCr-0.65 H&H-10.5/34.8 Plts-136 Assessment Diflucan & Meropenum dc'd, Vancomycin continues, Trough-15.5 evaluated a dose increased to 1,500mg IV q12hrs. Plan Patient wants to return home when ready, no interest in SNF Original Note: Addendum entered by Marilyn Lange 09/23/18 16:52: Pharmacy Note Subjective plan to go on comfort measures changed but pt still doesn't wish to be transferred to [facility] , palliative consultation done Objective pain 05/05 but 11/05 this AM, lytes improved, Assessment IV contrast infiltrated and hyaluronidase used, vancomycin/meropenem continues until speciation results, midline placed for Iv abx, no longer on ceftriaxone, vancomycin trough ordered for 09/23@1900 Plan awaiting final culture results, evaluate vanco trough Original Note: Admission Pharmacy Clinical Review ABNORMAL LFT's, A-FIB Code Status Full Code Current Weight Wgt-116.3 kg Renally Cleared and Narrow Therapeutic Index Meds CrCl~ 51.7 mL/mi Meds-OK QTc Value / Action Taken QTc-497 (Sertraline BP Control, Fever BP- 83/48 Tmax-37.0C Electrolytes reviewed Na-140 K+3.7 Mag-1.1 DVT Prophylaxis TEDs SCDs Opiate Usage / Scheduled Bowel Regimen Ordered Yes Yes Plt/SCr for Heparin / Enoxaparin Plts-126 SCr-0.64 INR for Warfarin na H/H stable, WBC/Bands H&H- 10.8/34.9 WBC- 4.64 Antibiotic appropriateness Rocephin, Meropenum, Vancomycin Cultures and Sensitivities Dnedt-Rrccr-dsughyo Surgical ABX d/c within 24 hr Na DM control / Insulin Dosing BG- 85 Heart Failure (Check EF%) (TIM's, B-Block, Diuretics) Lopressor-PO & IV, NTG IV to PO Switch No Home Meds Reviewed Yes Home Meds Not Ordered Cipro, Narcan spray, Nystatin Comments RCRP-2.63 Alk-phos- 291 (46.-116) TBIL-2.7 (0.2-1.02) ALB-2.0
[2018-09-22 08:48] LABS: Troponin I < 0.02 ng/mL (0.00-0.06)
[2018-09-22] MEDS: Pantoprazole 40 MG TABCR PO (09:27)
[2018-09-22] MEDS: Fluconazole 100 MG TAB 200 MG PO (09:27)
[2018-09-22] MEDS: Cyclobenzaprine 10 MG TAB PO ×2 (09:27→20:28)
[2018-09-22] MEDS: Anastrozole 1 MG TAB PO (09:27)
[2018-09-22] MEDS: Cyanocobalamin 100 MCG TABLET PO (09:27)
[2018-09-22] MEDS: Ferrous Sulfate 325 MG TAB PO (09:27)
[2018-09-22] MEDS: Dicyclomine 10 MG CAP PO ×2 (09:27→20:28)
[2018-09-22] MEDS: Metoprolol 25 MG TAB PO ×2 (09:28→20:31)
[2018-09-22] MEDS: Loperamide 2 MG CAP PO ×2 (09:28→17:32)
[2018-09-22] MEDS: Sertraline 50 MG TAB 100 MG PO (09:28)
[2018-09-22] MEDS: POTASSIUM CHLORIDE 20 MEQ, POTASSIUM CHLORIDE 10 MEQ 30 MEQ PO (09:28)
[2018-09-22] MEDS: Calcium 600mg/Vit D 200U TAB 2 TAB PO ×2 (09:28→20:30)
[2018-09-22] MEDS: Glucosamine 500 MG CAP PO ×2 (09:28→20:30)
[2018-09-22] MEDS: Ascorbic Acid 500 MG TAB PO ×2 (09:30→20:29)
[2018-09-22] MEDS: Omnipaque 350 MG/ML 100 ML BTL IJ ×2 (10:01→18:27)
--- NOTE | 2018-09-22 12:06 | PGE_ITS ---
Date of Service Date of service: 09/22/18 Time of Service: 12:08 Assessment and Plan (1) Comfort measures only status: Current visit: Yes Status: Acute Discussed care in detail with patient. She understands that her decision to avoid transfer to tertiary center, decline medical treatment including antibiotics, and return home may potentially result in worsening condition and potentially . She understands and wishes to proceed with comfort care. Per discussion with Fingernail Sculpturer it appears that she has had these wishes for some time, and the reason she has been referred to the hospital is due to VNA and home health intervention. Will respect patient's rights and privilege - discontinue all antibiotics and medications other than those meant for comfort care, cancel transfer to [facility], move patient to med surg, and request Palliative consult. LITHOGRAPHIC STRIPPER orders in place. Code Status changed to DNR/DNI. (2) Advanced directives, counseling/discussion: Current visit: Yes Status: Acute DNR/DNI. Subjective Interval history since last seen: 62 year old woman with a prior medical history of ascending cholangitis, just discharged following an admission for hematobilia, presents back to [facility] Emergency Department per request of home health nursing with reported return of blood with clots in her Hepatobiliary drain bag. Ms. Watson has a prior history of morbid obesity, Breast Ca, CAD, COPD, STACEY, PHTN with severe TR, and GERD. She was admitted to [facility] 08/30 through 09/09/2018 with a diagnosis of Ascending Cholangitis and UTI with resultant septic shock, treated with IV Antibiotics and sent home on Cipro and Flagyl that she completed. She also had a biliary drain placed during that hospitalization. She initially presented to [facility] on 09/18 with complaint of blood draining from her biliary tube, decreased appetite, poor oral intake, nausea, and abdominal pain. Initial work-up in the emergency room consisted of a CT scan showing the proper placement of the biliary tube without a hematoma or abscess. Labwork failed to show a leukocytosis and without anemia, but with evidence of an Acute Kidney Injury and elevated LFTs, including total bilirubin. Following discussion with GI recommendations were made for admission with IVF hydration and monitoring of vitals, labs, and blood loss from the biliary tube, with transfer for IR biliary tube replacement if needed. As the patient had completed all of her antibiotic treatment for cholangitis and there was no evidence of recurrent infection they did not recommend antibiotics. Following admission the patient's hematobilia resolved and her LFTs and total Bili improved significantly and at time of discharge her AST/ALT and Total Bilirubin had normalized, with a minimal and chronic appearing elevation in alk phos. She had an elevation in temperature with a fever of 38 on 09/18 in the setting of improving LFTs. Further work-up revealed evidence of a UTI, and she was initiated on antibiotic therapy without recurrence of a fever. She was discharged in stable condition. However, upon return home Visiting Nursing reported recurrence of clots and bloody drainage in her bag, and she was sent in to the ED for reevaluation. Work-up here showed worsening in her total Bilirubin and Alk Phos again, with normal AST and ALT. Of note, her urinalysis continued to be markedly abnormal with evidence of pyuria. The patient was also noted to have low blood pressure readings during the entirety of her last hospitalization, with systolic ranges of 70-90's. She continued to be hypotensive. Discussion with nursing during her last hospital stay appeared to indicate that the patient has been exceedingly difficult to measure blood pressure on - staff have had to resort to checking pressures on patient's one wrist or in her lower extremity, and due to her body habitus having a difficult time with the readings. Of note, Mrs. Watson has refused to allow bp checks on her upper extremities due to her history of Breast Ca. She had otherwise remained afebrile and non-toxic appearing, and continued to be upon presentation to the ED. Given the worsening LFTs and recurrence of bloody drainage in the hepatobiliary drain the patient was referred for admission for further evaluation and treatment. Following admission the patient had an arterial line placed, and hypotension was indeed confirmed. She was also in sinus tachycardia, but remained afebrile and nontoxic appearing. Her antibiotics were broadened, and plans were made for a CT Angiogram of the chest to rule out a PE, and an ECHO. Repeat Blood Cultures were also drawn, and she was given fluid boluses. Morning labwork confirmed worsening bilirubin and alk phos, hemoglobin, and platelet count. Following discussion with [facility] GI the patient was accepted in transfer for potential sepsis from either urinary or biliary source, with plans for intervention on her drain via either flushing, replacement, or removal. However , patient at that point adamantly refused transfer, and declared her wishes to become DNR/DNI. She is also currently opting out of all treatment modalities, and wishes to return home. Initial conversation was held between the patient and her acute care nurse, then repeated with the physician present, and again with 2 care managers present. Ms. Watson's antibiotics, IVFs, and non-comfort medications were discontinued. She's being transitioned back to [facility] surg with a palliative care consult. Her code status was changed to DNR/DNI. Exam Narrative Exam Narrative: General: Patient appears comfortable lying in bed, AAOX3, NAD. Morbidly obese. Psych: Tearful, sad affect. Objective Objective Clinical Data: Abnormal lab results 09/21/18 09/21/18 09/21/18 Range/Units 14:45 14:45 16:00 RBC 3.72 L (4.00-5.20) m/cumm Hgb (12.0-15.5) g/dL Hct (36.0-46.0) % MCV 109.1 H (80-95) fL MCH (27.0-33.0) pg MCHC 30.0 L (32.0-36.0) g/dL Plt Count (130-400) x1000/uL Absolute Lymphocytes 0.75 L (1.2-3.4) k/cumm ESR (0-30) MM/HR BUN 6 L (7-18) mg/dL Calcium (8.5-10.1) mg/dL Magnesium (1.8-2.4) mg/dL Total Bilirubin 1.8 H (0.2-1.0) mg/dL Alkaline Phosphatase 233 H (46-116) U/L C-Reactive Protein (0.0-0.3) mg/dL Total Protein (6.4-8.2) g/dL Albumin 2.5 L (3.4-5.0) g/dL Urine Blood Moderate H (Negative) Ur Leukocyte Esterase Large H (Negative) Urine RBC >50 H (0-2) 09/22/18 09/22/18 09/22/18 Range/Units 06:45 06:45 06:45 RBC 3.25 L (4.00-5.20) m/cumm Hgb 10.8 L (12.0-15.5) g/dL Hct 34.9 L (36.0-46.0) % MCV 107.4 H (80-95) fL MCH 33.2 H (27.0-33.0) pg MCHC 30.9 L (32.0-36.0) g/dL Plt Count 126 L (130-400) x1000/uL Absolute Lymphocytes 0.71 L (1.2-3.4) k/cumm ESR (0-30) MM/HR BUN 4 L (7-18) mg/dL Calcium 7.6 L (8.5-10.1) mg/dL Magnesium 1.1 L (1.8-2.4) mg/dL Total Bilirubin 2.7 H (0.2-1.0) mg/dL Alkaline Phosphatase 291 H (46-116) U/L C-Reactive Protein 2.63 H (0.0-0.3) mg/dL Total Protein 5.3 L (6.4-8.2) g/dL Albumin 2.0 L (3.4-5.0) g/dL Urine Blood (Negative) Ur Leukocyte Esterase (Negative) Urine RBC (0-2) 09/22/18 Range/Units 06:45 RBC (4.00-5.20) m/cumm Hgb (12.0-15.5) g/dL Hct (36.0-46.0) % MCV (80-95) fL MCH (27.0-33.0) pg MCHC (32.0-36.0) g/dL Plt Count (130-400) x1000/uL Absolute Lymphocytes (1.2-3.4) k/cumm ESR 63 H (0-30) MM/HR BUN (7-18) mg/dL Calcium (8.5-10.1) mg/dL Magnesium (1.8-2.4) mg/dL Total Bilirubin (0.2-1.0) mg/dL Alkaline Phosphatase (46-116) U/L C-Reactive Protein (0.0-0.3) mg/dL Total Protein (6.4-8.2) g/dL Albumin (3.4-5.0) g/dL Urine Blood (Negative) Ur Leukocyte Esterase (Negative) Urine RBC (0-2) Vital Signs Temperature 37.0 C 09/22/18 07:40 Temperature Source Temporal Artery Scan 09/22/18 07:40 Pulse 122 H 09/22/18 07:01 Pulse 125 H 09/22/18 07:01 Respiratory Rate 27 H 09/22/18 07:01 Respiratory Effort 09/22/18 07:40 Respiratory Depth Normal 09/22/18 07:40 Respiratory Pattern Normal 09/22/18 07:40 Blood Pressure 83/48 L 09/22/18 07:01 Blood Pressure Mean 56 09/22/18 07:01 Blood Pressure Position Supine 09/21/18 18:30 Pulse Oximetry 91 L 09/22/18 07:01 Oxygen Delivery Method Cpap 09/22/18 04:05 Oxygen Flow Rate 2 09/22/18 04:05 Pain Level 5 09/21/18 17:35 Intake & Output 09/21/18 09/22/18 09/22/18 23:59 11:59 23:59 Intake Total 971.25 / 971.25 2863.333 / 2863.333 Output Total 650 / 650 575 / 575 Balance 321.25 / 321.25 2288.333 / 2288.333 Weight 122.924 kg 116.3 kg Intake: IV 251.25 / 251.25 2743.333 / 2743.333 Oral 720 / 720 120 / 120 Output: Urine 650 / 650 575 / 575 Other: Urine Color Light Ally [place] Urine Appearance Cloudy Clear Comment arndt to gravity. 650cc's of cloudy ally urine emptied with sg of 1.020. Large +for leukocytes Chronic arndt placement. SG 1.020, pH 5, trace blood, mod leuks. Stool Size Copious Stool Characteristics Liquid Brown Pedraza Laboratory Results WBC 4.64 k/cumm (4.4-10.8) D 09/22/18 06:45 RBC 3.25 m/cumm (4.00-5.20) L 09/22/18 06:45 Hgb 10.8 g/dL (12.0-15.5) L 09/22/18 06:45 Hct 34.9 % (36.0-46.0) L 09/22/18 06:45 MCV 107.4 fL (80-95) H 09/22/18 06:45 MCH 33.2 pg (27.0-33.0) H 09/22/18 06:45 MCHC 30.9 g/dL (32.0-36.0) L 09/22/18 06:45 RDW 13.3 % (11.7-14.6) 09/22/18 06:45 Plt Count 126 x1000/uL (130-400) L 09/22/18 06:45 MPV 10.9 fL (8.0-11.0) 09/22/18 06:45 Immature Gran % 0.2 09/22/18 06:45 Neutrophils % 72.5 09/22/18 06:45 Lymphocytes % 15.3 09/22/18 06:45 Monocytes % 6.9 09/22/18 06:45 Eosinophils % 4.7 09/22/18 06:45 Basophils % 0.4 09/22/18 06:45 Absolute Neutrophils 3.36 k/cumm (1.2-6.7) 09/22/18 06:45 Absolute Lymphocytes 0.71 k/cumm (1.2-3.4) L 09/22/18 06:45 Absolute Monocytes 0.32 k/cumm (0.11-0.7) 09/22/18 06:45 Absolute Eosinophils 0.22 k/cumm (0.0-0.7) 09/22/18 06:45 Absolute Basophils 0.02 k/cumm (0.0-0.2) 09/22/18 06:45 Differential Comment Diff reviewed 09/21/18 14:45 RBC Morphology See below 09/21/18 14:45 Macrocytosis 1+ 09/21/18 14:45 ESR 63 MM/HR (0-30) H 09/22/18 06:45 PT Cancelled 09/22/18 08:25 INR Cancelled 09/22/18 08:25 Sodium 140 mmol/L (136-145) 09/22/18 06:45 Potassium 3.7 mmol/L (3.5-5.1) 09/22/18 06:45 Chloride 101 mmol/L (98-107) 09/22/18 06:45 Carbon Dioxide 30.0 mmol/L (21.0-32.0) 09/22/18 06:45 Anion Gap 9.0 mmol/L (3-11) 09/22/18 06:45 BUN 4 mg/dL (7-18) L 09/22/18 06:45 Creatinine 0.64 mg/dL (0.55-1.02) 09/22/18 06:45 Estimated GFR/1.73 m2 >= 60.00 (mL/min/1.73m2) 09/22/18 06:45 Glucose 85 mg/dL (70-100) 09/22/18 06:45 Lactate 1.0 mmol/L (0.6-1.4) 09/22/18 07:02 Calcium 7.6 mg/dL (8.5-10.1) L 09/22/18 06:45 Magnesium 1.1 mg/dL (1.8-2.4) L 09/22/18 06:45 Total Bilirubin 2.7 mg/dL (0.2-1.0) H 09/22/18 06:45 AST 30 U/L (15-37) 09/22/18 06:45 ALT 28 U/L (12-78) 09/22/18 06:45 Alkaline Phosphatase 291 U/L (46-116) H 09/22/18 06:45 Troponin I < 0.02 ng/mL (0.00-0.06) 09/22/18 06:45 C-Reactive Protein 2.63 mg/dL (0.0-0.3) H 09/22/18 06:45 Total Protein 5.3 g/dL (6.4-8.2) L 09/22/18 06:45 Albumin 2.0 g/dL (3.4-5.0) L 09/22/18 06:45 Urine Color Yellow (Yellow) 09/21/18 16:00 Urine Clarity Cloudy 09/21/18 16:00 Urine pH 5.5 (5-8) 09/21/18 16:00 Ur Specific [place] 1.020 (1.005-1.025) 09/21/18 16:00 Urine Protein Negative mg/dL (Negative) 09/21/18 16:00 Urine Ketones Negative mg/dL (Negative) 09/21/18 16:00 Urine Blood Moderate (Negative) H 09/21/18 16:00 Urine Nitrite Negative (Negative) 09/21/18 16:00 Urine Bilirubin Negative (Negative) 09/21/18 16:00 Urine Urobilinogen 0.2 EU/dL (Up TO 0.2) 09/21/18 16:00 Ur Leukocyte Esterase Large (Negative) H 09/21/18 16:00 Urine RBC >50 (0-2) H 09/21/18 16:00 Urine WBC >50 HPF (0-5) 09/21/18 16:00 Ur Epithelial Cells Negative HPF (Negative) 09/21/18 16:00 Urine Crystals Negative HPF (Negative) 09/21/18 16:00 Urine Bacteria Many HPF (Negative) 09/21/18 16:00 Urine Casts Negative LPF (Negative) 09/21/18 16:00 Urine Mucus Negative (Negative) 09/21/18 16:00 Urine Other Many yeast (Negative) 09/21/18 16:00 Ur Culture Indicated? Yes 09/21/18 16:00 Urine Glucose Negative mg/dL (Negative) 09/21/18 16:00
--- NOTE | 2018-09-22 12:21 | PDOC.CMIN ---
- If Service Date Differs Date of service: 09/22/18 Time of Service: 12:21 Care Management Initial Assess REASON FOR HOSPITALIZATION:: Hematobilia, UTI PAST MEDICAL HISTORY/PAST SURGICAL HISTORY:: Morbid obesity, Depression, H/O DVD, DJD, H/O PSVT, Chronic back pain, Bilateral cataracts, Paroxysmal atrial fibrillation, Diastolic heart failure, (R) heart failure, STACEY PREVIOUS FUNCTIONAL STATUS/SOCIAL/FAMILY SUPPORTS:: Prema resides alone in [facility]. She has two sons whom do not reside locally. Prema states that she has a friend locally whom is supportive. Prema also states that she has someone in the community whom she pays privately once franko while and that she is very helpful. Prema does not drive, she depends on [facility] for transportation at baseline. CURRENT FUNCTIONAL STATUS:: Prema is lying on a stretcher crying when this account underwriter visits this morning. Prema states I am done, I want to go home. Dr. Wells, and MICHAEL Oviedo, were present during conversation. Prema was very tearful throughout discussion. Dr. Wells had contacted [facility] due to Sepsis and Prema at the time of discussion was refusing transfer to [facility] due to a previous experience. Prema stated numerous times that she wanted to return home, was done and that she had no quality of life. MICHAEL discussed hospice and Prema's lack of support in the community to assist her at home on Hospice and what this would look like. Prema stated that she did not want to be a full code, discussed CPR, as well as intubation which she states she would not want if needed. 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 Prema does state that she does not know where her youngest son Tan is and would like help with locating him - CM notified her son Vlad of this. MICHAEL Oviedo, spoke with Cassidy Nicoleell (Friend) whom states that Prema has been stating that she is done and that she want to since her [facility] admission. ADVANCE DIRECTIVES:: Vlad Watson is agent, Ana Lane is alternate Has patient been provided with information about the portal?: Yes Did the patient sign up for the portal?: No CODE STATUS:: DNR/DNI INSURANCE COVERAGE / FINANCIAL ISSUES:: Medicaid CURRENT HOME/COMMUNITY SERVICES/EQUIPMENT:: Currently Prema has home health - RN daily, OT 2x/week and MACHINE MOLDER SQUEEZE's 3x/week. Prema has a FWW, Commode, grab bars, electric w/c, shower bench, hospital bed, Lifeline, oxygen, CPAP, and nebulizer from [email or web address]. Prema states that the walker is broken, the commode does not have a bucket, the electric w/c is broken, and the hospital bed is broken. She states that her CM Jane, COA, is aware of the medical equipment needing to be fixed. PRIMARY CARE PHYSICIAN:: Dr. Gutiérrez POTENTIAL DISCHARGE NEEDS:: ? Hospice. ? SNF PATIENT/FAMILY EDUCATION NEEDS:: Review DC instructions, any limitations, and ongoing DC planning discussion. Discuss 'Ask Me three' ANTICIPATED BARRIERS TO DISCHARGE:: Resources to support patient being home. TRANSPORTATION:: TBD PLAN:: Dr. Dorado, Palliative, is meeting with Prema at this time in regards to goals of care. Prema spoke with her son Vlad today, after this call Vlad called this CM and stated that Prema did not understand that conversation with this account underwriter, Dr. Wells, and MICHAEL Oviedo, this morning and did not realize her antibiotics would be stopped. Dr. dorado is meeting with Prema at this time to discuss the above. Readmission - Assessment for Readmission Summary of readmission circumstances, based upon interviews: Readmission - sent in by [facility] due to blood clots in her bag. Prema states that she does not want to come in to the hospital anymore and wants to return home as she is done.
--- NOTE | 2018-09-22 14:05 | INITIAL_ITS ---
- If Service Date Differs Date of service: 09/22/18 Time of Service: 12:21 Care Management Initial Assess REASON FOR HOSPITALIZATION:: Hematobilia, UTI PAST MEDICAL HISTORY/PAST SURGICAL HISTORY:: Morbid obesity, Depression, H/O DVD , DJD, H/O PSVT, Chronic back pain, Bilateral cataracts, Paroxysmal atrial fibrillation, Diastolic heart failure, (R) heart failure, STACEY PREVIOUS FUNCTIONAL STATUS/SOCIAL/FAMILY SUPPORTS:: Prema resides alone in [facility]. She has two sons whom do not reside locally. Prema states that she has a friend locally whom is supportive. Prema also states that she has someone in the community whom she pays privately once franko while and that she is very helpful. Prema does not drive, she depends on [facility] for transportation at baseline. CURRENT FUNCTIONAL STATUS:: Prema is lying on a stretcher crying when this health underwriter visits this morning. Prema states I am done, I want to go home. Dr. Wells, and MICHAEL Oviedo, were present during conversation. Prema was very tearful throughout discussion. Dr. Wells had contacted [facility] due to Sepsis and Prema at the time of discussion was refusing transfer to [facility] due to a previous experience. Prema stated numerous times that she wanted to return home, was done and that she had no quality of life. MICHAEL discussed hospice and Prema's lack of support in the community to assist her at home on Hospice and what this would look like. Prema stated that she did not want to be a full code, discussed CPR, as well as intubation which she states she would not want if needed. 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 Prema does state that she does not know where her youngest son Tan is and would like help with locating him - CM notified her son Vlad of this. MICHAEL Oviedo, spoke with Cassidy Nicoleell (Friend) whom states that Prema has been stating that she is done and that she want to since her [facility] admission. ADVANCE DIRECTIVES:: Vlad Watson is agent, Ana Lane is alternate Has patient been provided with information about the portal?: Yes Did the patient sign up for the portal?: No CODE STATUS:: DNR/DNI INSURANCE COVERAGE / FINANCIAL ISSUES:: Medicaid CURRENT HOME/COMMUNITY SERVICES/EQUIPMENT:: Currently Prema has home health - RN daily, OT 2x/week and CAPSULE MAKER's 3x/week. Prema has a FWW, Commode, grab bars, electric w/c, shower bench, hospital bed, Lifeline, oxygen, CPAP, and nebulizer from [employer]. Prema states that the walker is broken, the commode does not have a bucket, the electric w/c is broken, and the hospital bed is broken. She states that her CM Jane, COA, is aware of the medical equipment needing to be fixed. PRIMARY CARE PHYSICIAN:: Dr. Gutiérrez POTENTIAL DISCHARGE NEEDS:: ? Hospice. ? SNF PATIENT/FAMILY EDUCATION NEEDS:: Review DC instructions, any limitations, and ongoing DC planning discussion. Discuss 'Ask Me three' ANTICIPATED BARRIERS TO DISCHARGE:: Resources to support patient being home. TRANSPORTATION:: TBD PLAN:: Dr. Dorado, Palliative, is meeting with Prema at this time in regards to goals of care. Prema spoke with her son Vlad today, after this call Vlad called this CM and stated that Prema did not understand that conversation with this health underwriter, Dr. Wells, and MICHAEL Oviedo, this morning and did not realize her antibiotics would be stopped. Dr. dorado is meeting with Prema at this time to discuss the above. Readmission - Assessment for Readmission Summary of readmission circumstances, based upon interviews: Readmission - sent in by [facility] due to blood clots in her bag. Prema states that she does not want to come in to the hospital anymore and wants to return home as she is done.
[2018-09-22] MEDS: Normal Saline 1,000 ML 150 ML IV (17:33)
[2018-09-22] MEDS: Normal Saline Flush 10 ML SYR IVP ×3 (17:34→21:17)
--- NOTE | 2018-09-22 20:01 | DI.CT_ITS ---
SYMPTOMS/DIAGNOSIS: PERSISTENT HYPOTENSION, TACHYCARDIA CHEST CT FOR PULMONARY EMBOLISM: CT angiography was performed with multi slice acquisition and multi planar and 3D reconstruction. Comparison is made with May, and April,. There is a stable loculated left pleural collection at the left lung base. There are minimal dependent densities of the right lung base, also stable. The pulmonary arteries are poorly opacified with IV contrast. No central filling defects are seen. The aorta shows no evidence of dissection and is normal in diameter. There are mild coronary artery calcifications. Evaluation of the lungs is limited by respiratory motion. Left apical thickening and scarring is again noted, unchanged from 2017. There is a question of bilateral ground-glass opacities versus expiratory changes. A percutaneous biliary catheter is noted. IMPRESSION: Poor opacification of the pulmonary arteries. Pulmonary emboli cannot be excluded. Stable left apical scarring and loculated left pleural collection.
[2018-09-22] MEDS: Methylphenidate 10 MG TAB PO (20:28)
[2018-09-22] MEDS: oxyCODONE 5 mg/Acetaminophen 325 mg TAB 1 TAB PO (20:29)
[2018-09-22] MEDS: Albuterol/Ipratropium 3 ML UPD VIAL UPD (20:30)
--- NOTE | 2018-09-22 20:35 | DI.VRAD_ITS ---
EXAM: CT Angiography Chest With Intravenous Contrast EXAM DATE/TIME: 09/22/2018 3:37 PM CLINICAL HISTORY: 62 years old, female; Signs and symptoms; Other: Persistent hypotension, tachyc; Additional info: Iv infiltrated and PT started to move around the table TECHNIQUE: Axial computed tomographic angiography images of the chest with intravenous contrast using CT angiography protocol. All CT scans at this facility use at least one of these dose optimization techniques: automated exposure control; mA and/or kV adjustment per patient size (includes targeted exams where dose is matched to clinical indication); or iterative reconstruction. Coronal and sagittal reformatted images were created and reviewed. MIP reconstructed images were created and reviewed. CONTRAST: 100 ml of omnipaque administered intravenously. COMPARISON: CT CHEST FOR PULMONARY EMBOLUS 04/26/2018 6:25 PM FINDINGS: Left apical scarring unchanged from the prior exam. Suboptimal opacification of the pulmonary arteries. No large central embolism is identified however distal emboli cannot be excluded. Mild interstitial lung disease with areas of groundglass opacities slightly increased from the prior exam suggesting some degree of alveolitis. Mild posterior pleural thickening and some basilar atelectasis. Suggestion of a very minimal left pleural effusion. Thoracic aorta unremarkable. Transhepatic biliary drainage catheter in the right upper quadrant. IMPRESSION: 1. Multiple incidental findings including interstitial lung disease and mild alveolitis as outlined above with no other specific etiology identified for the patient's symptoms. 2. Sub-optimal opacification of the pulmonary arteries as described. Dictated and Authenticated by: Asael Valentine MD. Ordering:IFEANYI CAAL MD
[2018-09-22] MEDS: Zolpidem 10 MG TAB PO (20:36)
[2018-09-22] MEDS: clonazePAM 1 MG TAB 2 MG PO (20:36)
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
[2018-09-22] MEDS: Hyaluronidase 150 UNITS VIAL IJ (21:57)
[2018-09-22] MEDS: VANCOMYCIN 1,250 MG in Normal Saline 250 ML 250 MG IV (22:16)
[2018-09-23] VITALS (7 sets, daily range): BP systolic 82–88; BP diastolic 46–57; PULSE 97–100; RESP 16–18; TEMP 36.7–37.1; O2SAT 95–98
[2018-09-23] MEDS: Acetaminophen 500 MG TAB 1000 MG PO (00:37)
[2018-09-23] MEDS: Normal Saline Flush 10 ML SYR IVP ×2 (00:38→16:39)
[2018-09-23] MEDS: Metoprolol 25 MG TAB PO ×2 (05:25→18:11)
[2018-09-23] MEDS: Normal Saline 1,000 ML 150 ML IV ×2 (05:28→14:50)
--- NOTE | 2018-09-23 09:00 | MERGE_ITS ---
*[facility]* *[facility]* [address] [place] [address] Date of study: 09/23/2018 Transthoracic Echocardiography M-mode, complete 2D, complete spectral Doppler, and color Doppler *STUDY CONCLUSIONS* Impressions: Frequent ectopy was noted on this study, making this study technically difficult for the assessment of cardiac function. Summary: 1. Left ventricle: The cavity size was normal. Wall thickness was increased increased in a pattern of mild to moderate LVH. Systolic function was normal. The estimated ejection fraction was 55-60%. Although no diagnostic regional wall motion abnormality was identified, this possibility cannot be completely excluded on the basis of this study. 2. Aortic valve: There was mild regurgitation. 3. Left atrium: The atrium was moderately dilated. 4. Right ventricle: The cavity size was at least moderately dilated. Wall thickness was normal. Systolic function was reduced. 5. Right atrium: The atrium was dilated. 6. Pulmonary arteries: Pulmonary systolic pressure was increased, in the range of 40mm Hg to 50mm Hg. *PATIENT PRESENTATION* Height: 149.9cm ((59in) ) S/D Pressure: 88 / 53 Weight: 116.1kg ((255.5lb) ) BSA: 2.28m^2 Test start time: 09:15 AM. Test stop time: 10:10 AM. PERFORMING Unknown ORDERING Seven Wells REFERRING Seven Wells PERFORMING [facility] COMMUNICATIONS ATTENDANT RT Merrill MayaR)(ALISON)TATIANA *PROCEDURE DATA* Procedure information: The patient was identified by two identifiers. This study was interpreted by [facility]. Pertinent images and digital data are archived for permanent storage and are available for subsequent review. Comparison was made to the study of 11/18/2016. Study status: Routine. Transthoracic echocardiography. M-mode, complete 2D, complete spectral Doppler, and color Doppler. A Transthoracic Echocardiogram was performed. Scanning was performed from the parasternal, apical, subcostal, and suprasternal notch acoustic windows. Images were obtained using an [id number] cardiac ultrasound machine. Image quality was adequate. Study completion: The patient tolerated the procedure well. There were no complications. History: PMH: Persistent Hypotension. History RV dysfunction. STACEY. *CARDIAC ANATOMY* Left ventricle: The cavity size was normal. Wall thickness was increased increased in a pattern of mild to moderate LVH. Systolic function was normal. The estimated ejection fraction was 55-60%. Although no diagnostic regional wall motion abnormality was identified, this possibility cannot be completely excluded on the basis of this study. Diastolic parameters were normal. Aortic valve: Trileaflet; normal thickness leaflets. Mobility was not restricted. Doppler: Transvalvular velocity was within the normal range. There was no stenosis. There was mild regurgitation. VTI ratio of LVOT to aortic valve: 0.79. Valve area (VTI): 2.8cm^2. Indexed valve area (VTI): 1.2cm^2/m^2. Peak velocity ratio of LVOT to aortic valve: 0.68. Valve area (Vmax): 2.4cm^2. Indexed valve area (Vmax): 1.1cm^2/m^2. Mean velocity ratio of LVOT to aortic valve: 0.72. Valve area (Vmean): 2.6cm^2. Indexed valve area (Vmean): 1.1cm^2/m^2. Mean gradient (S): 7mm Hg. Peak gradient (S): 11.9mm Hg. Aorta: Aortic root: The aortic root was normal in size. Ascending aorta: The ascending aorta was normal in size. Mitral valve: Structurally normal valve. Mobility was not restricted. Doppler: Transvalvular velocity was within the normal range. There was no evidence for stenosis. There was trivial regurgitation. Valve area by pressure half-time: 3.7cm^2. Indexed valve area by pressure half-time: 1.6cm^2/m^2. Left atrium: The atrium was moderately dilated. Right ventricle: The cavity size was moderately dilated. Wall thickness was normal. Systolic function was reduced. Pulmonic valve: Structurally normal valve. Doppler: Transvalvular velocity was within the normal range. There was no evidence for stenosis. There was no significant regurgitation. Peak gradient (S): 4.5mm Hg. Tricuspid valve: Structurally normal valve. Doppler: Transvalvular velocity was within the normal range. There was no evidence for stenosis. There was mild regurgitation. Pulmonary artery: Pulmonary systolic pressure was increased, in the range of 40mm Hg to 50mm Hg. Right atrium: The atrium was dilated. Pericardium: There was no pericardial effusion. Systemic veins: Inferior vena cava: Well visualized. The vessel was dilated. Respirophasic changes in dimension were absent. Measurements Left ventricle Value 11/18/2016 Reference LV ID, ED, PLAX 4.8 cm 4.0 3.5 - 6.0 LV ID, ES, PLAX 3.5 cm 2.9 2.1 - 4.0 LV PW thickness, ED, PLAX 1.2 cm 1.2 LV end-diastolic volume, 63 ml 1-p A2C LV ejection fraction, 1-p 52 % A2C LV end-diastolic volume, 83 ml 1-p A4C LV ejection fraction, 1-p 53 % A4C LV e', lateral 0.11 m/sec LV E/e', lateral 6 LV e', medial 0.074 m/sec LV E/e', medial 8 LV e', average 0.092 m/sec LV E/e', average 7 Ventricular septum Value 11/18/2016 Reference IVS thickness, ED, PLAX 1.4 cm 1.3 LVOT Value 11/18/2016 Reference LVOT ID, A-P 2.1 cm 2.1 LVOT area 3.6 cm^2 3.5 LVOT peak velocity, S 1.17 m/sec 1.07 LVOT mean velocity, S 0.91 m/sec LVOT VTI, S 26.8 cm 21.6 LVOT peak gradient, S 5.5 mm Hg LVOT mean gradient, S 3.7 mm Hg 2.4 Stroke volume (SV), LVOT 96 ml DP Stroke index (SV/bsa), 42 ml/m^2 LVOT DP Aortic valve Value 11/18/2016 Reference Aortic valve peak 1.7 m/sec velocity, S Aortic valve mean 1.26 m/sec velocity, S Aortic valve VTI, S 34.0 cm Aortic mean gradient, S 7 mm Hg Aortic peak gradient, S 11.9 mm Hg VTI ratio, LVOT/AV 0.79 Aortic valve area, VTI 2.8 cm^2 2.7 Velocity ratio, peak, 0.68 LVOT/AV Aortic valve area, peak 2.4 cm^2 2.6 velocity Velocity ratio, mean, 0.72 LVOT/AV Aortic valve area, mean 2.6 cm^2 velocity Aortic valve area/bsa, 1.1 cm^2/m^2 mean velocity Aorta Value 11/18/2016 Reference Aortic root ID, ED 3.1 cm Ascending aorta ID, A-P, S 3.4 cm 3.2 Left atrium Value 11/18/2016 Reference LA ID, A-P, ES 4.3 cm LA ID/bsa, A-P 1.9 cm/m^2 <=2.2 LA area, ES, A4C (H) 24.7 cm^2 24 8.8 - 23.4 LA area, ES, A2C 27 cm^2 LA volume/bsa, ES, 1-p A4C 43 ml/m^2 35 LA volume, ES, 2-p 88 ml LA volume/bsa, ES, 2-p 39 ml/m^2 LA/aortic root ratio 1.37 1.37 Mitral valve Value 11/18/2016 Reference Mitral E-wave peak 0.61 m/sec 0.51 velocity Mitral A-wave peak 0.55 m/sec 0.66 velocity Mitral deceleration time 204 ms 150 - 230 Mitral pressure half-time 59 ms 68 Mitral E/A ratio, peak 1.1 0.78 Mitral valve area, PHT, DP 3.7 cm^2 3.3 Tricuspid valve Value 11/18/2016 Reference Tricuspid regurg peak 3.2 m/sec 3.1 velocity Tricuspid peak RV-RA 41.6 mm Hg 39 gradient Right atrium Value 11/18/2016 Reference RA area, ES, A4C (H) 31.5 cm^2 29 8.3 - 19.5 Pulmonic valve Value 11/18/2016 Reference Pulmonic peak gradient, S 4.5 mm Hg Legend: (L) and (H) andrew values outside specified reference range. I have personally reviewed the images and have reviewed and edited the reported findings. Electronically signed by James Rudd 09/23/2018 11:21
[2018-09-23] MEDS: VANCOMYCIN 1,250 MG in Normal Saline 250 ML 167 MG IV (09:36)
[2018-09-23] MEDS: Dicyclomine 10 MG CAP PO ×2 (10:43→20:40)
[2018-09-23] MEDS: Enoxaparin 40 MG/0.4 ML SYR SC (10:43)
[2018-09-23] MEDS: Fluconazole 100 MG TAB 200 MG PO (10:43)
[2018-09-23] MEDS: Cyanocobalamin 100 MCG TABLET PO (10:43)
[2018-09-23] MEDS: Pantoprazole 40 MG VIAL IVP (10:43)
[2018-09-23] MEDS: oxyCODONE 5 mg/Acetaminophen 325 mg TAB 1 TAB PO ×4 (10:44→20:39)
[2018-09-23] MEDS: Calcium 600mg/Vit D 200U TAB 2 TAB PO ×2 (10:44→20:37)
[2018-09-23] MEDS: Glucosamine 500 MG CAP PO ×2 (10:45→20:38)
[2018-09-23] MEDS: Sertraline 50 MG TAB 100 MG PO (10:45)
[2018-09-23] MEDS: Cyclobenzaprine 10 MG TAB PO ×2 (10:45→20:39)
[2018-09-23] MEDS: Ferrous Sulfate 325 MG TAB PO (10:45)
[2018-09-23] MEDS: Anastrozole 1 MG TAB PO (10:45)
[2018-09-23] MEDS: Ascorbic Acid 500 MG TAB PO ×2 (10:45→20:39)
[2018-09-23] MEDS: Methylphenidate 10 MG TAB PO ×2 (10:46→13:34)
[2018-09-23] MEDS: Loperamide 2 MG CAP PO ×2 (11:26→21:08)
[2018-09-23 11:56] LABS: Abs Immature Grans 0.02 k/cumm (0.0-0.09); Absolute Basophil Count 0.02 k/cumm (0.0-0.2); Absolute Eosinophil Count 0.25 k/cumm (0.0-0.7); Absolute Lymphocyte Count 0.38 k/cumm (1.2-3.4); Absolute Monocyte Count 0.38 k/cumm (0.11-0.7); Absolute Neutrophil Count 5.85 k/cumm (1.2-6.7); Basophils % 0.3; Eosinophils % 3.6; HGB 11.1 g/dL (12.0-15.5); Immature Grans % 0.3; Lymphocytes % 5.5; Mean Corpuscular Hemoglobin 33.2 pg (27.0-33.0); Mean Corpuscular Volume 110.8 fL (80-95); Mean Platelet Volume 11.1 fL (8.0-11.0); Monocytes % 5.5; Neutrophils % 84.8; Platelet Count 135 x1000/uL (130-400); RBC 3.34 m/cumm (4.00-5.20); RBC Distribution Width 13.8 % (11.7-14.6)
[2018-09-23] MEDS: Budesonide/Formoterol 160/4.5 6 GM 60 PUFF INH IH ×2 (12:00→20:42)
[2018-09-23] MEDS: Albuterol/Ipratropium 3 ML UPD VIAL IH ×3 (12:08→20:43)
[2018-09-23 12:11] LABS: Anion Gap 5.6 mmol/L (3-11); BUN 6 mg/dL (7-18); CO2 28.4 mmol/L (21.0-32.0); CREATININE 0.65 mg/dL (0.55-1.02); Calcium 8.2 mg/dL (8.5-10.1); Chloride 105 mmol/L (98-107); Glucose 102 mg/dL (70-100); Magnesium 1.7 mg/dL (1.8-2.4); Potassium 4.4 mmol/L (3.5-5.1); Sodium 139 mmol/L (136-145)
--- NOTE | 2018-09-23 14:11 | PDOC.CMPRO ---
- If Service Date Differs Date of service: 09/23/18 Time of Service: 14:12 Care Management Progress Note S/O: Prema is lying in bed this afternoon. She reports that she is tired and wanting to rest this afternoon. Prema had a midline placed, and states that she did well with this. Prema has requested a popsicle, gingerale, and two custards, Tl, SILK PRESSER, states that Prema is not diabetic. notified KRISTY Erazo, that provided Prema with the above items. Prema is requesting that her IV line be taped which CM has also notified KRISTY Erazo, of. A: 62 y/o female admitted 09/21/18 for abnormal LFTs P: Prema continues to receive IV antibiotics at this time with a midline placed today. Prema met with Dr. Dorado, Palliative, yesterday to discuss goals of care/code status. CM to continue to provide support to Prema throughout her hospitalization and discuss DC plans with her. Prema continues to state that she is not interested in SNF placement, and wants to return home when she is ready.
--- NOTE | 2018-09-23 14:33 | CMPROGNOTE_ITS ---
- If Service Date Differs Date of service: 09/23/18 Time of Service: 14:12 Care Management Progress Note S/O: Prema is lying in bed this afternoon. She reports that she is tired and wanting to rest this afternoon. Prema had a midline placed, and states that she did well with this. Prema has requested a popsicle, gingerale, and two custards , Tl, BAG PRINTER, states that Prema is not diabetic. notified KRISTY Erazo, that provided Prema with the above items. Prema is requesting that her IV line be taped which CM has also notified KRISTY Erazo, of. A: 62 y/o female admitted 09/21/18 for abnormal LFTs P: Prema continues to receive IV antibiotics at this time with a midline placed today. Prema met with Dr. Dorado, Palliative, yesterday to discuss goals of care/ code status. CM to continue to provide support to Prema throughout her hospitalization and discuss DC plans with her. Prema continues to state that she is not interested in SNF placement, and wants to return home when she is ready.
--- NOTE | 2018-09-23 14:54 | NUR.NOTE ---
Nursing Note:Pt requested all 4 rails to be up.Nurse rhodes Notified.
--- NOTE | 2018-09-23 15:24 | CHAPLAIN ---
Prema was in bed when I visited her. I has spend some time with her yesterday (09/22) before and after she spoke with Dr. Dorado for a Palliative Care consult. She is upset that her son who lives in [facility], will not come to visit her. She was tearful about this. Her younger son lives in [place], [place] and Prema said she has asked Care Management to all the police in those [facility] see if they can locate her son. She believes the police know where he is. Prema also talked about a sitter, Kerline, who lives in [place], [place], and she would like to speak to Kerline. Prema has a connection to the [facility] Worship Restorationist, but did not want me to call the adventism for her.
--- NOTE | 2018-09-23 18:23 | PGE_ITS ---
Date of Service Date of service: 09/23/18 Time of Service: 18:23 Assessment and Plan (1) Hypotension: Current visit: Yes Status: Acute Currently hypotensive, and patient with significantly low systolic values during her last hospitalization. She was noted to have hypotension throughout her hospital course from initial evaluation until her time of discharge, patient 's blood pressure measurements have been less than ideal and problematic due to body habitus and patient preference. She is not dehydrated and does not appear septic, but low blood pressures were confirmed via arterial line.Potential for sepsis pending result of blood cultures, either on the basis of UTI or from GI Source in patient with recent history of ascending cholangitis. Continue broad spectrum antibiotics and await culture results. (2) Urinary tract infection: Current visit: Yes Status: Acute Urinalysis from 09/19 with evidence of infection with large Leukocyte Esterase, and >50 WBCs, but culture with >100,000 of mixed gram positive alvarado, noted to be possible contaminated collection. Also with growth of jak albicans. Review of patient's prior Urine Culture results from 08/30/2018, 2016, 05/2017, and 10/2016 all with growth of E.Coli sensitive to Fluoroquinolone therapy. Patient with noted allergy to Cipro, but had completed a course of [place] [facility] She was discharged on a course of Ciprofloxacin at time of discharge previously. However, despite antibiotic therapy there is clear evidence of pyuria with Leuk Esterase in her urine again. There was no evidence of pyelonephritis on her CT from last admission - highly doubt invasive bladder or kidney infection. However , given current hypotension and tachycardia despite antibiotic therapy initiated treatment with oral Fluconazole, and changed antibiotic therapy to broad spectrum given concern for sepsis. (3) Hematobilia: Current visit: Yes Status: Acute Initial admission from 09/18 with complete resolution of bleeding and improvement/normalization of LFTs back to baseline. Patient had a low grade fever in the setting of continued improvement in her LFTs and resolution of her nausea and abdominal discomfort. Work-up revealed evidence of potential UTI. She was initiated on antibiotic therapy for a urinary tract infection, and had been afebrile for well over 24 hours. Currently with recurrence of blood via drain. Will plan on close monitoring overnight, with repeat labs including Hgb and LFTs in the morning. Will discuss with [facility] as well if warranted, but at this point patient is stable and does not require urgent intervention. Also without bed availability at [facility] [place] (4) STACEY (obstructive sleep apnea): Current visit: Yes Status: Chronic Continue CPAP therapy. (5) DVT prophylaxis: Current visit: Yes Status: Acute On SCDs. Hold Chemical DVT prophylaxis in setting of bleeding. (6) Advanced directives, counseling/discussion: Current visit: Yes Status: Acute DNR/DNI Subjective Interval history since last seen: 62 year old woman with a prior medical history of ascending cholangitis, just discharged following an admission for hematobilia, presents back to [facility] Emergency Department per request of home health nursing with reported return of blood with clots in her Hepatobiliary drain bag. Ms. Watson has a prior history of morbid obesity, Breast Ca, CAD, COPD, STACEY, PHTN with severe TR, and GERD. She was [place] [facility] [place] 09/09/2018 with a diagnosis of Ascending Cholangitis and UTI with resultant septic shock, treated with IV Antibiotics and sent home on Cipro and Flagyl that she completed. She also had a biliary drain placed during that hospitalization. She initially presented to [facility] on 09/18 with complaint of blood draining from her biliary tube, decreased appetite, poor oral intake, nausea, and abdominal pain. Initial work-up at that time in the emergency room consisted of a CT scan showing the proper placement of the biliary tube without a hematoma or abscess. Labwork failed to show a leukocytosis and without anemia, but with evidence of an Acute Kidney Injury and elevated LFTs, including total bilirubin. Following discussion with GI recommendations were made for admission with IVF hydration and monitoring of vitals, labs, and blood loss from the biliary tube, with transfer for IR biliary tube replacement if needed. As the patient had completed all of her antibiotic treatment for cholangitis and there was no evidence of recurrent infection they did not recommend antibiotics. Following admission the patient's hematobilia resolved and her LFTs and total Bili improved significantly and at time of discharge her AST/ALT and Total Bilirubin had normalized, with a minimal and chronic appearing elevation in alk phos. She had an elevation in temperature with a fever of 38 on 09/18 in the setting of improving LFTs. Further work-up revealed evidence of a UTI, and she was initiated on antibiotic therapy without recurrence of a fever. She was discharged in stable condition. However, upon return home Visiting Nursing reported recurrence of clots and bloody drainage in her bag, and she was sent in to the ED for reevaluation. Work-up here showed worsening in her total Bilirubin and Alk Phos again, with normal AST and ALT. Of note, her urinalysis continued to be markedly abnormal with evidence of pyuria. The patient was also noted to have low blood pressure readings during the entirety of her last hospitalization, with systolic ranges of 70-90's. She continued to be hypotensive. Discussion with nursing during her last hospital stay appeared to indicate that the patient has been exceedingly difficult to measure blood pressure on - staff have had to resort to checking pressures on patient's one wrist or in her lower extremity, and due to her body habitus having a difficult time with the readings. Of note, Mrs. Watson has refused to allow bp checks on her upper extremities due to her history of Breast Ca. She had otherwise remained afebrile and non-toxic appearing, and continued to be upon presentation to the ED. Given the worsening LFTs and recurrence of bloody drainage in the hepatobiliary drain the patient was referred for admission for further evaluation and treatment. Following admission the patient had an arterial line placed, and hypotension was indeed confirmed. She was also in sinus tachycardia, but remained afebrile and nontoxic appearing. Her antibiotics were broadened. Blood Cultures grew positive for Gram Positive Cocci. A CT Angiogram of the chest was perofrmed and of poor quality and could not exclude a PE, and an ECHO was obtained and showed a normal LVEF, but with reduced RV Systolic Function. As the patient's labwork confirmed worsening bilirubin and alk phos, hemoglobin, and platelet count the patient was accepted by [facility] in transfer for potential sepsis from either urinary or biliary source, with plans for intervention on her drain via either flushing, replacement, or removal. However, patient at that point adamantly refused transfer, and declared her wishes to become DNR/DNI. She opted out of all treatment modalities, and wished to return home. Initial conversation was held between the patient and her emergency care attendant, then repeated with the physician present, and again with 2 care managers present. Her transfer was cancelled, she was transferred out of the ICU, and a Hospice consult was placed. However, she then changed her mind and wished for full treatment but without transfer. She is currently back on all medications and antibiotics. Exam Narrative Exam Narrative: Exam Narrative: General: Patient appears comfortable lying in bed, AAOX3, NAD. Morbidly obese. Neck: Supple CV: Regular, nontachycardic, S1S2, No rubs, murmurs, or gallops. Pulmonary: Clear to auscultation bilaterally, no crackles, wheezing, or rhonchi on exam limited by body habitus. Abdomen: + Bowel Sounds, soft, nontender, nondistended. Hepatobiliary drainage bag with bloody output, clots noted. Vascular: + b/l LE edema, chronic and nonpitting Psych: Normal mood and affect. Objective Objective Clinical Data: Abnormal lab results 09/23/18 09/23/18 Range/Units 11:27 11:27 RBC 3.34 L (4.00-5.20) m/cumm Hgb 11.1 L (12.0-15.5) g/dL MCV 110.8 H (80-95) fL MCH 33.2 H (27.0-33.0) pg MCHC 30.0 L (32.0-36.0) g/dL MPV 11.1 H (8.0-11.0) fL Absolute Lymphocytes 0.38 L (1.2-3.4) k/cumm BUN 6 L (7-18) mg/dL Glucose 102 H (70-100) mg/dL Calcium 8.2 L (8.5-10.1) mg/dL Magnesium 1.7 L (1.8-2.4) mg/dL Vital Signs Temperature 36.7 C 09/23/18 07:38 Temperature Source Tympanic 09/23/18 07:38 Pulse 100 H 09/23/18 07:38 Pulse Rhythm Regular 09/23/18 11:39 Pulse 127 H 09/22/18 10:00 Respiratory Rate 17 09/23/18 07:38 Respiratory Effort 09/23/18 11:39 Respiratory Depth Normal 09/23/18 11:39 Respiratory Pattern Normal 09/23/18 11:39 Blood Pressure 82/46 L 09/23/18 18:13 Blood Pressure Mean 61 09/22/18 10:00 Blood Pressure Position Supine 09/21/18 18:30 Pulse Oximetry 96 09/23/18 13:30 Oxygen Delivery Method Nasal Cannula 09/23/18 13:30 Oxygen Flow Rate 2 09/23/18 13:30 Pain Level 6 09/23/18 17:39 Comment 09/23/18 05:15 Intake & Output 09/22/18 09/23/18 09/23/18 23:59 11:59 23:59 Intake Total 1450 / 1450 600 / 600 1590 / 1590 Output Total 1700 / 1700 1600 / 1600 250 / 250 Balance -250 / -250 -1000 / -1000 1340 / 1340 Intake: IV 720 / 720 100 / 100 1350 / 1350 Oral 730 / 730 500 / 500 240 / 240 Output: Drainage 750 / 750 850 / 850 250 / 250 Right Biliary Drainage Bag 750 / 750 850 / 850 250 / 250 Urine 950 / 950 750 / 750 Other: Urine Color Light Alejandra Yellow Urine Appearance Cloudy Comment Gao in place. Stool Size Large Copious Large Stool Characteristics Soft Soft Soft Brown Pedraza Laboratory Results WBC 6.90 k/cumm (4.4-10.8) 09/23/18 11:27 RBC 3.34 m/cumm (4.00-5.20) L 09/23/18 11:27 Hgb 11.1 g/dL (12.0-15.5) L 09/23/18 11:27 Hct 37.0 % (36.0-46.0) 09/23/18 11:27 MCV 110.8 fL (80-95) H 09/23/18 11:27 MCH 33.2 pg (27.0-33.0) H 09/23/18 11:27 MCHC 30.0 g/dL (32.0-36.0) L 09/23/18 11:27 RDW 13.8 % (11.7-14.6) 09/23/18 11:27 Plt Count 135 x1000/uL (130-400) 09/23/18 11: MPV 11.1 fL (8.0-11.0) H 09/23/18 11:27 Immature Gran % 0.3 09/23/18 11:27 Neutrophils % 84.8 09/23/18 11:27 Lymphocytes % 5.5 09/23/18 11:27 Monocytes % 5.5 09/23/18 11:27 Eosinophils % 3.6 09/23/18 11:27 Basophils % 0.3 09/23/18 11:27 Absolute Neutrophils 5.85 k/cumm (1.2-6.7) 09/23/18 11:27 Absolute Lymphocytes 0.38 k/cumm (1.2-3.4) L 09/23/18 11:27 Absolute Monocytes 0.38 k/cumm (0.11-0.7) 09/23/18 11:27 Absolute Eosinophils 0.25 k/cumm (0.0-0.7) 09/23/18 11:27 Absolute Basophils 0.02 k/cumm (0.0-0.2) 09/23/18 11:27 Differential Comment Diff reviewed 09/21/18 14:45 RBC Morphology See below 09/21/18 14:45 Macrocytosis 1+ 09/21/18 14:45 ESR 63 MM/HR (0-30) H 09/22/18 06:45 PT Cancelled 09/22/18 08:25 INR Cancelled 09/22/18 08:25 Sodium 139 mmol/L (136-145) 09/23/18 11:27 Potassium 4.4 mmol/L (3.5-5.1) 09/23/18 11:27 Chloride 105 mmol/L (98-107) 09/23/18 11:27 Carbon Dioxide 28.4 mmol/L (21.0-32.0) 09/23/18 11:27 Anion Gap 5.6 mmol/L (3-11) 09/23/18 11:27 BUN 6 mg/dL (7-18) L 09/23/18 11:27 Creatinine 0.65 mg/dL (0.55-1.02) 09/23/18 11:27 Estimated GFR/1.73 m2 >= 60.00 (mL/min/1.73m2) 09/23/18 11:27 Glucose 102 mg/dL (70-100) H 09/23/18 11:27 Lactate 1.0 mmol/L (0.6-1.4) 09/22/18 07:02 Calcium 8.2 mg/dL (8.5-10.1) L 09/23/18 11:27 Magnesium 1.7 mg/dL (1.8-2.4) L 09/23/18 11:27 Total Bilirubin 2.7 mg/dL (0.2-1.0) H 09/22/18 06:45 AST 30 U/L (15-37) 09/22/18 06:45 ALT 28 U/L (12-78) 09/22/18 06:45 Alkaline Phosphatase 291 U/L (46-116) H 09/22/18 06:45 Troponin I < 0.02 ng/mL (0.00-0.06) 09/22/18 06:45 C-Reactive Protein 2.63 mg/dL (0.0-0.3) H 09/22/18 06:45 Total Protein 5.3 g/dL (6.4-8.2) L 09/22/18 06:45 Albumin 2.0 g/dL (3.4-5.0) L 09/22/18 06:45 Urine Color Yellow (Yellow) 09/21/18 16:00 Urine Clarity Cloudy 09/21/18 16:00 Urine pH 5.5 (5-8) 09/21/18 16:00 Ur Specific Osseo 1.020 (1.005-1.025) 09/21/18 16:00 Urine Protein Negative mg/dL (Negative) 09/21/18 16:00 Urine Ketones Negative mg/dL (Negative) 09/21/18 16:00 Urine Blood Moderate (Negative) H 09/21/18 16:00 Urine Nitrite Negative (Negative) 09/21/18 16:00 Urine Bilirubin Negative (Negative) 09/21/18 16:00 Urine Urobilinogen 0.2 EU/dL (Up TO 0.2) 09/21/18 16:00 Ur Leukocyte Esterase Large (Negative) H 09/21/18 16:00 Urine RBC >50 (0-2) H 09/21/18 16:00 Urine WBC >50 HPF (0-5) 09/21/18 16:00 Ur Epithelial Cells Negative HPF (Negative) 09/21/18 16:00 Urine Crystals Negative HPF (Negative) 09/21/18 16:00 Urine Bacteria Many HPF (Negative) 09/21/18 16:00 Urine Casts Negative LPF (Negative) 09/21/18 16:00 Urine Mucus Negative (Negative) 09/21/18 16:00 Urine Other Many yeast (Negative) 09/21/18 16:00 Ur Culture Indicated? Yes 09/21/18 16:00 Urine Glucose Negative mg/dL (Negative) 09/21/18 16:00
[2018-09-23] MEDS: clonazePAM 1 MG TAB 2 MG PO (20:38)
[2018-09-23 20:58] LABS: Vancomycin, Trough 15.5 ug/mL (10.0-20.0)
[2018-09-23] MEDS: VANCOMYCIN 1,250 MG in Normal Saline 250 ML 250 MG IV (21:53)
[2018-09-24 00:04] VITALS: BP 84/54; PULSE 108; RESP 17; TEMP 37.3; O2SAT 99
[2018-09-24] MEDS: Zolpidem 10 MG TAB PO ×2 (00:31→21:22)
[2018-09-24] MEDS: Normal Saline 1,000 ML 150 ML IV ×3 (01:14→16:49)
[2018-09-24] MEDS: Metoprolol 25 MG TAB PO ×2 (06:23→18:46)
[2018-09-24] MEDS: Acetaminophen 500 MG TAB 1000 MG PO (06:53)
[2018-09-24 07:30] VITALS: O2SAT 96
[2018-09-24 07:46] LABS: Abs Immature Grans 0.02 k/cumm (0.0-0.09); Absolute Basophil Count 0.02 k/cumm (0.0-0.2); Absolute Eosinophil Count 0.41 k/cumm (0.0-0.7); Absolute Lymphocyte Count 0.59 k/cumm (1.2-3.4); Absolute Monocyte Count 0.35 k/cumm (0.11-0.7); Absolute Neutrophil Count 3.85 k/cumm (1.2-6.7); Basophils % 0.4; Eosinophils % 7.8; HCT 34.8 % (36.0-46.0); HGB 10.5 g/dL (12.0-15.5); Immature Grans % 0.4; Lymphocytes % 11.3; Mean Corp. HGB Concentration 30.2 g/dL (32.0-36.0); Mean Corpuscular Hemoglobin 33.7 pg (27.0-33.0); Mean Corpuscular Volume 111.5 fL (80-95); Mean Platelet Volume 11.2 fL (8.0-11.0); Monocytes % 6.7; Neutrophils % 73.4; Platelet Count 136 x1000/uL (130-400); RBC 3.12 m/cumm (4.00-5.20); RBC Distribution Width 13.7 % (11.7-14.6); White Blood Cell Count 5.24 k/cumm (4.4-10.8)
[2018-09-24 07:55] LABS: Anion Gap 6.4 mmol/L (3-11); BUN 6 mg/dL (7-18); CO2 26.6 mmol/L (21.0-32.0); CREATININE 0.65 mg/dL (0.55-1.02); Calcium 8.1 mg/dL (8.5-10.1); Chloride 104 mmol/L (98-107); Glucose 91 mg/dL (70-100); Potassium 4.3 mmol/L (3.5-5.1); Sodium 137 mmol/L (136-145)
[2018-09-24] MEDS: Budesonide/Formoterol 160/4.5 6 GM 60 PUFF INH IH ×2 (09:51→21:22)
[2018-09-24] MEDS: Albuterol/Ipratropium 3 ML UPD VIAL IH ×4 (09:51→21:22)
[2018-09-24 11:00] VITALS: BP 97/62; PULSE 102; RESP 20; TEMP 36.9; O2SAT 95
[2018-09-24] MEDS: Pantoprazole 40 MG VIAL IVP (11:16)
[2018-09-24] MEDS: VANCOMYCIN 1,250 MG in Normal Saline 250 ML 250 MG IV (11:17)
[2018-09-24] MEDS: Normal Saline Flush 10 ML SYR IVP ×3 (11:17→21:27)
[2018-09-24] MEDS: Enoxaparin 40 MG/0.4 ML SYR SC (11:17)
[2018-09-24] MEDS: Dicyclomine 10 MG CAP PO ×2 (11:18→21:25)
[2018-09-24] MEDS: Methylphenidate 10 MG TAB PO ×2 (11:18→13:54)
[2018-09-24] MEDS: Cyanocobalamin 100 MCG TABLET PO (11:18)
[2018-09-24] MEDS: Glucosamine 500 MG CAP PO ×2 (11:18→21:27)
[2018-09-24] MEDS: oxyCODONE 5 mg/Acetaminophen 325 mg TAB 1 TAB PO ×3 (11:18→21:26)
[2018-09-24] MEDS: Calcium 600mg/Vit D 200U TAB 2 TAB PO ×2 (11:18→21:27)
[2018-09-24] MEDS: Ascorbic Acid 500 MG TAB PO ×2 (11:19→21:25)
[2018-09-24] MEDS: Ferrous Sulfate 325 MG TAB PO (11:19)
[2018-09-24] MEDS: Sertraline 50 MG TAB 100 MG PO (11:19)
[2018-09-24] MEDS: Cyclobenzaprine 10 MG TAB PO ×2 (11:19→21:23)
[2018-09-24] MEDS: Anastrozole 1 MG TAB PO (11:19)
--- NOTE | 2018-09-24 12:52 | PDOC.CMPRO ---
- If Service Date Differs Date of service: 09/24/18 Time of Service: 12:52 Care Management Progress Note S/O: CM met with patient at the bedside she reports she is feeling better the pain in her right side has improved. She wants to return home when medically ready. She will be transported home via ambulance and resume services through home health. Prema reports she did not sleep well last night. Today she is lying in bed with the lights off and her sleep mask on. Awaiting urine culture anticipate she will return home in the next 24-48 hours. A: 62 y/o female admitted 09/21/18 for abnormal LFTs P: Prema continues to receive IV antibiotics at this time with a midline placed today. Prema met with Dr. Dorado, Palliative, yesterday to discuss goals of care/code status. CM to continue to provide support to Prema throughout her hospitalization and discuss DC plans with her. Prema continues to state that she is not interested in SNF placement, and wants to return home when she is ready.
--- NOTE | 2018-09-24 12:58 | CMPROGNOTE_ITS ---
- If Service Date Differs Date of service: 09/24/18 Time of Service: 12:52 Care Management Progress Note S/O: CM met with patient at the bedside she reports she is feeling better the pain in her right side has improved. She wants to return home when medically ready. She will be transported home via ambulance and resume services through home health. Prema reports she did not sleep well last night. Today she is lying in bed with the lights off and her sleep mask on. Awaiting urine culture anticipate she will return home in the next 24-48 hours. A: 62 y/o female admitted 09/21/18 for abnormal LFTs P: Prema continues to receive IV antibiotics at this time with a midline placed today. Prema met with Dr. Dorado, Palliative, yesterday to discuss goals of care/ code status. CM to continue to provide support to Prema throughout her hospitalization and discuss DC plans with her. Prema continues to state that she is not interested in SNF placement, and wants to return home when she is ready.
--- NOTE | 2018-09-24 13:20 | NUR.NOTE ---
Nursing Note: Patient had told grinder hand that her iv site was bothering her, this nurse went to asses the iv, she asked this nurse if it could wait awhile , that her lunch was there, and she wanted time to be able to eat it
[2018-09-24] MEDS: Loperamide 2 MG CAP PO (14:08)
[2018-09-24 16:10] VITALS: BP 88/51; PULSE 100; RESP 20; TEMP 37.1; O2SAT 100
[2018-09-24 17:45] VITALS: RESP 1
--- NOTE | 2018-09-24 19:12 | W.PM.PROGNOT ---
Date of Service Date of service: 09/24/18 Time of Service: 17:01 Assessment and Plan (1) Hypotension: Current visit: Yes Status: Acute Currently hypotensive and tachycardic, with a-line confirming findings. Unsure of etiology, but had originally considered sepsis as a possibility. Unfortunately blood cultures appear to be contaminant with growth of Staph Epidermidis from one set and Staph Hominis from the other, and urine culture with growth of Aerococcus Urinae and Cele, which is likely a colonization without evidence of any hydronephrosis, paranephric stranding, or fungus ball on prior CT. Fluconazole discontinued, will hold meropenem today, and continue to monitor HR and BP closely. Continue IVF's for now. (2) Urinary tract infection: Current visit: Yes Status: Acute Urinalysis from 09/19 and 09/21 with evidence of infection with large Leukocyte Esterase, and >50 WBCs, but culture with >100,000 of mixed gram positive alvarado, Aerococcus Urinae which is likely not pathologic and easily treated. Also with growth of cele albicans. Review of patient's prior Urine Culture results from 08/30/2018, 09/2017, 05/2017, and 10/2016 all with growth of E.Coli sensitive to Fluoroquinolone therapy. However, despite antibiotic therapy there is clear evidence of pyuria with Leuk Esterase in her urine again. There was no evidence of pyelonephritis on her CT from last admission - highly doubt invasive bladder or kidney infection. (3) Hematobilia: Current visit: Yes Status: Acute Initial admission from 09/18 with complete resolution of bleeding and improvement/normalization of LFTs back to baseline. Patient had a low grade fever in the setting of continued improvement in her LFTs and resolution of her nausea and abdominal discomfort. Work-up revealed evidence of potential UTI. She was initiated on antibiotic therapy for a urinary tract infection, and had been afebrile for well over 24 hours. Currently with recurrence of blood via drain. Will plan on close monitoring overnight, with repeat labs including Hgb and LFTs in the morning. Will discuss with [facility] as well if warranted, but at this point patient is stable and does not require urgent intervention. Also without bed availability at [facility]. (4) STACEY (obstructive sleep apnea): Current visit: Yes Status: Chronic Continue CPAP therapy. (5) DVT prophylaxis: Current visit: Yes Status: Acute On SCDs. Hold Chemical DVT prophylaxis in setting of bleeding. (6) Advanced directives, counseling/discussion: Current visit: Yes Status: Acute DNR/DNI Subjective Interval history since last seen: 62 year old woman with a prior medical history of ascending cholangitis, just discharged following an admission for hematobilia, presents back to [facility] Emergency Department per request of home health nursing with reported return of blood with clots in her Hepatobiliary drain bag. Ms. Watson has a prior history of morbid obesity, Breast Ca, CAD, COPD, STACEY, PHTN with severe TR, and GERD. She was admitted to [facility] 08/30 through 09/09/2018 with a diagnosis of Ascending Cholangitis and UTI with resultant septic shock, treated with IV Antibiotics and sent home on Cipro and Flagyl that she completed. She also had a biliary drain placed during that hospitalization. She initially presented to [facility] on 09/18 with complaint of blood draining from her biliary tube, decreased appetite, poor oral intake, nausea, and abdominal pain. Initial work-up at that time in the emergency room consisted of a CT scan showing the proper placement of the biliary tube without a hematoma or abscess. Labwork failed to show a leukocytosis and without anemia, but with evidence of an Acute Kidney Injury and elevated LFTs, including total bilirubin. Following discussion with GI recommendations were made for admission with IVF hydration and monitoring of vitals, labs, and blood loss from the biliary tube, with transfer for IR biliary tube replacement if needed. As the patient had completed all of her antibiotic treatment for cholangitis and there was no evidence of recurrent infection they did not recommend antibiotics. Following admission the patient's hematobilia resolved and her LFTs and total Bili improved significantly and at time of discharge her AST/ALT and Total Bilirubin had normalized, with a minimal and chronic appearing elevation in alk phos. She had an elevation in temperature with a fever of 38 on 09/18 in the setting of improving LFTs. Further work-up revealed evidence of a UTI, and she was initiated on antibiotic therapy without recurrence of a fever. She was discharged in stable condition. However, upon return home Visiting Nursing reported recurrence of clots and bloody drainage in her bag, and she was sent in to the ED for reevaluation. Work-up here showed worsening in her total Bilirubin and Alk Phos again, with normal AST and ALT. Of note, her urinalysis continued to be markedly abnormal with evidence of pyuria. The patient was also noted to have low blood pressure readings during the entirety of her last hospitalization, with systolic ranges of 70-90's. She continued to be hypotensive. Discussion with nursing during her last hospital stay appeared to indicate that the patient has been exceedingly difficult to measure blood pressure on - staff have had to resort to checking pressures on patient's one wrist or in her lower extremity, and due to her body habitus having a difficult time with the readings. Of note, Mrs. Watson has refused to allow bp checks on her upper extremities due to her history of Breast Ca. She had otherwise remained afebrile and non-toxic appearing, and continued to be upon presentation to the ED. Given the worsening LFTs and recurrence of bloody drainage in the hepatobiliary drain the patient was referred for admission for further evaluation and treatment. Following admission the patient had an arterial line placed, and hypotension was indeed confirmed. She was also in sinus tachycardia, but remained afebrile and nontoxic appearing. Her antibiotics were broadened. Blood Cultures grew positive for Gram Positive Cocci. A CT Angiogram of the chest was perofrmed and of poor quality and could not exclude a PE, and an ECHO was obtained and showed a normal LVEF, but with reduced RV Systolic Function. As the patient's labwork confirmed worsening bilirubin and alk phos, hemoglobin, and platelet count the patient was accepted by [facility] in transfer for potential sepsis from either urinary or biliary source, with plans for intervention on her drain via either flushing, replacement, or removal. However, patient at that point adamantly refused transfer, and declared her wishes to become DNR/DNI. She opted out of all treatment modalities, and wished to return home. Initial conversation was held between the patient and her manager critical care, then repeated with the physician present, and again with 2 care managers present. Her transfer was cancelled, she was transferred out of the ICU, and a Hospice consult was placed. However, she then changed her mind and wished for full treatment but without transfer. She is currently back on all medications and antibiotics. The patient's Blood cultures all have returned with likely contaminent, and her urinalysis is not impressive for an infection. Her Fluconazole has been discontinued, and Meropenem is d/c'd today. Patient without significant complaints. She remains afebrile. Exam Narrative Exam Narrative: Exam Narrative: General: Patient appears comfortable lying in bed, AAOX3, NAD. Morbidly obese. Neck: Supple CV: Regular,tachycardic, S1S2, No rubs, murmurs, or gallops. Pulmonary: Clear to auscultation bilaterally, no crackles, wheezing, or rhonchi on exam limited by body habitus. Abdomen: + Bowel Sounds, soft, nontender, nondistended. Hepatobiliary drainage bag with bloody output, clots noted. Vascular: + b/l LE edema, chronic and nonpitting Psych: Normal mood and affect. Objective Objective Clinical Data: Abnormal lab results 09/22/18 09/24/18 09/24/18 Range/Units 06:45 07:15 07:15 RBC 3.12 L (4.00-5.20) m/cumm Hgb 10.5 L (12.0-15.5) g/dL Hct 34.8 L (36.0-46.0) % MCV 111.5 H (80-95) fL MCH 33.7 H (27.0-33.0) pg MCHC 30.2 L (32.0-36.0) g/dL MPV 11.2 H (8.0-11.0) fL Absolute Lymphocytes 0.59 L (1.2-3.4) k/cumm BUN 6 L (7-18) mg/dL Calcium 8.1 L (8.5-10.1) mg/dL C-Reactive Protein 2.63 H (0.0-0.3) mg/dL Vital Signs Temperature 37.1 C 09/24/18 16:10 Temperature Source Tympanic 09/24/18 16:10 Pulse 100 H 09/24/18 16:10 Pulse Rhythm Regular 09/24/18 16:22 Pulse 127 H 09/22/18 10:00 Respiratory Rate 20 09/24/18 16:10 Respiratory Effort Non-Labored 09/24/18 16:22 Respiratory Depth Normal 09/24/18 16:22 Respiratory Pattern Normal 09/24/18 16:22 Blood Pressure 88/51 L 09/24/18 16:10 Blood Pressure Mean 61 09/22/18 10:00 Blood Pressure Position Supine 09/21/18 18:30 Pulse Oximetry 100 09/24/18 16:10 Oxygen Delivery Method Nasal Cannula 09/24/18 16:10 Oxygen Flow Rate 2 09/24/18 16:10 Pain Level 0 09/24/18 11:00 Comment 09/23/18 05:15 Intake & Output 09/23/18 09/24/18 09/24/18 23:59 11:59 23:59 Intake Total 2627.5 / 2627.5 1573.5 / 1573.5 1360 / 1360 Output Total 1075 / 1075 1650 / 1650 200 / 200 Balance 1552.5 / 1552.5 -76.5 / -76.5 1160 / 1160 Intake: IV 2387.5 / 2387.5 1093.5 / 1093.5 1000 / 1000 Oral 240 / 240 480 / 480 360 / 360 Output: Drainage 425 / 425 1150 / 1150 200 / 200 Right Biliary Drainage Bag 425 / 425 1150 / 1150 200 / 200 Urine 650 / 650 500 / 500 Other: Urine Color Yellow Yellow Urine Appearance Clear Clear Clear Stool Size Large Stool Characteristics Soft Laboratory Results WBC 5.24 k/cumm (4.4-10.8) 09/24/18 07:15 RBC 3.12 m/cumm (4.00-5.20) L 09/24/18 07:15 Hgb 10.5 g/dL (12.0-15.5) L 09/24/18 07:15 Hct 34.8 % (36.0-46.0) L 09/24/18 07:15 MCV 111.5 fL (80-95) H 09/24/18 07:15 MCH 33.7 pg (27.0-33.0) H 09/24/18 07:15 MCHC 30.2 g/dL (32.0-36.0) L 09/24/18 07:15 RDW 13.7 % (11.7-14.6) 09/24/18 07:15 Plt Count 136 x1000/uL (130-400) 09/24/18 07:15 MPV 11.2 fL (8.0-11.0) H 09/24/18 07:15 Immature Gran % 0.4 09/24/18 07:15 Neutrophils % 73.4 09/24/18 07:15 Lymphocytes % 11.3 09/24/18 07:15 Monocytes % 6.7 09/24/18 07:15 Eosinophils % 7.8 09/24/18 07:15 Basophils % 0.4 09/24/18 07:15 Absolute Neutrophils 3.85 k/cumm (1.2-6.7) 09/24/18 07:15 Absolute Lymphocytes 0.59 k/cumm (1.2-3.4) L 09/24/18 07:15 Absolute Monocytes 0.35 k/cumm (0.11-0.7) 09/24/18 07:15 Absolute Eosinophils 0.41 k/cumm (0.0-0.7) 09/24/18 07:15 Absolute Basophils 0.02 k/cumm (0.0-0.2) 09/24/18 07:15 Differential Comment Diff reviewed 09/21/18 14:45 RBC Morphology See below 09/21/18 14:45 Macrocytosis 1+ 09/21/18 14:45 ESR 63 MM/HR (0-30) H 09/22/18 06:45 PT Cancelled 09/22/18 08:25 INR Cancelled 09/22/18 08:25 Sodium 137 mmol/L (136-145) 09/24/18 07:15 Potassium 4.3 mmol/L (3.5-5.1) 09/24/18 07:15 Chloride 104 mmol/L (98-107) 09/24/18 07:15 Carbon Dioxide 26.6 mmol/L (21.0-32.0) 09/24/18 07:15 Anion Gap 6.4 mmol/L (3-11) 09/24/18 07:15 BUN 6 mg/dL (7-18) L 09/24/18 07:15 Creatinine 0.65 mg/dL (0.55-1.02) 09/24/18 07:15 Estimated GFR/1.73 m2 >= 60.00 (mL/min/1.73m2) 09/24/18 07:15 Glucose 91 mg/dL (70-100) 09/24/18 07:15 Lactate 1.0 mmol/L (0.6-1.4) 09/22/18 07:02 Calcium 8.1 mg/dL (8.5-10.1) L 09/24/18 07:15 Magnesium 1.7 mg/dL (1.8-2.4) L 09/23/18 11:27 Total Bilirubin 2.7 mg/dL (0.2-1.0) H 09/22/18 06:45 AST 30 U/L (15-37) 09/22/18 06:45 ALT 28 U/L (12-78) 09/22/18 06:45 Alkaline Phosphatase 291 U/L (46-116) H 09/22/18 06:45 Troponin I < 0.02 ng/mL (0.00-0.06) 09/22/18 06:45 C-Reactive Protein 2.63 mg/dL (0.0-0.3) H 09/22/18 06:45 Total Protein 5.3 g/dL (6.4-8.2) L 09/22/18 06:45 Albumin 2.0 g/dL (3.4-5.0) L 09/22/18 06:45 Urine Color Yellow (Yellow) 09/21/18 16:00 Urine Clarity Cloudy 09/21/18 16:00 Urine pH 5.5 (5-8) 09/21/18 16:00 Ur Specific [place] 1.020 (1.005-1.025) 09/21/18 16:00 Urine Protein Negative mg/dL (Negative) 09/21/18 16:00 Urine Ketones Negative mg/dL (Negative) 09/21/18 16:00 Urine Blood Moderate (Negative) H 09/21/18 16:00 Urine Nitrite Negative (Negative) 09/21/18 16:00 Urine Bilirubin Negative (Negative) 09/21/18 16:00 Urine Urobilinogen 0.2 EU/dL (Up TO 0.2) 09/21/18 16:00 Ur Leukocyte Esterase Large (Negative) H 09/21/18 16:00 Urine RBC >50 (0-2) H 09/21/18 16:00 Urine WBC >50 HPF (0-5) 09/21/18 16:00 Ur Epithelial Cells Negative HPF (Negative) 09/21/18 16:00 Urine Crystals Negative HPF (Negative) 09/21/18 16:00 Urine Bacteria Many HPF (Negative) 09/21/18 16:00 Urine Casts Negative LPF (Negative) 09/21/18 16:00 Urine Mucus Negative (Negative) 09/21/18 16:00 Urine Other Many yeast (Negative) 09/21/18 16:00 Ur Culture Indicated? Yes 09/21/18 16:00 Urine Glucose Negative mg/dL (Negative) 09/21/18 16:00 Vancomycin Trough 15.5 ug/mL (10.0-20.0) 09/23/18 20:40
[2018-09-24] MEDS: VANCOMYCIN 1,500 MG in Normal Saline 500 ML 333.333 MG IVPB (21:22)
[2018-09-24] MEDS: clonazePAM 1 MG TAB 2 MG PO (21:24)
[2018-09-24 21:52] VITALS: RESP 1; RESP 8
[2018-09-25 00:20] VITALS: TEMP 38.1
[2018-09-25] MEDS: Acetaminophen 500 MG TAB 1000 MG PO (00:20)
[2018-09-25 00:26] VITALS: BP 86/45; PULSE 106; RESP 18; TEMP 38.1; O2SAT 94
[2018-09-25] MEDS: Normal Saline 1,000 ML 150 ML IV ×2 (00:55→10:26)
[2018-09-25 02:56] LABS: Bilirubin Negative (Negative); Blood Trace-intact (Negative); Clarity Cloudy; Glucose Negative (Negative); Ketones Negative (Negative); Leukocyte Esterase Moderate (Negative); Nitrite Negative (Negative); Urobilinogen 0.2 EU/dL (Up TO 0.2)
[2018-09-25 03:05] LABS: WBC >50 HPF (0-5)
[2018-09-25 03:07] LABS: C & S Indicated? Yes; Other Cells Moderate Yeast (Negative)
[2018-09-25 03:22] VITALS: TEMP 35.9
[2018-09-25 06:28] VITALS: BP 100/65
[2018-09-25] MEDS: Metoprolol 25 MG TAB PO ×2 (06:45→18:23)
--- NOTE | 2018-09-25 07:00 | DI.US_ITS ---
SYMPTOM/DIAGNOSIS: FEBRILE, H/O CHOLANGITIS, S/P T TUBE ABDOMEN ULTRASOUND: The visualized liver parenchyma appears somewhat echogenic and the liver appears mildly enlarged. Hepatic parenchyma is incompletely visualized due to the patient's body habitus. Patient has had a previous cholecystectomy. No biliary dilatation is seen. Pancreas not well seen. Spleen grossly unremarkable. Kidneys grossly unremarkable. CONCLUSION: Limited study due to the patient's size. No gross pathology identified.
--- NOTE | 2018-09-25 07:00 | DI.NM_ITS ---
SYMPTOMS/DIAGNOSIS: FEBRILE ILLNESS, H/O CHOLANGITIS S/P T-TUBE WHITE BLOOD CELL SCAN: The patient received 20.6 mCi of technetium labelled White Blood Cells. Images were obtained 1 hour and 3-1/2 hours following injection. No SPECT images were obtained. There is normal physiologic radiotracer uptake seen in the axial and appendicular skeletons, liver and spleen. There is physiologic activity seen in the renal collecting systems and the patient's catheter tubing. There is abnormal radiotracer accumulation seen in the right abdomen beneath the liver in the region of the gallbladder fossa. This is present on both the 1 -hour and 3-1/2-hour post injection images. There is focal radiotracer uptake seen at the injection site in the right upper extremity. IMPRESSION: Abnormal radiotracer uptake seen in the right abdomen in the region of the gallbladder fossa. Infectious or inflammatory process cannot be excluded.
[2018-09-25 07:43] LABS: Abs Immature Grans 0.01 k/cumm (0.0-0.09); Absolute Basophil Count 0.03 k/cumm (0.0-0.2); Absolute Eosinophil Count 0.64 k/cumm (0.0-0.7); Absolute Lymphocyte Count 0.73 k/cumm (1.2-3.4); Absolute Monocyte Count 0.41 k/cumm (0.11-0.7); Absolute Neutrophil Count 2.85 k/cumm (1.2-6.7); Basophils % 0.6; Eosinophils % 13.7; HGB 10.4 g/dL (12.0-15.5); Immature Grans % 0.2; Lymphocytes % 15.6; Mean Corp. HGB Concentration 29.7 g/dL (32.0-36.0); Mean Corpuscular Hemoglobin 33.1 pg (27.0-33.0); Mean Corpuscular Volume 111.5 fL (80-95); Mean Platelet Volume 11.1 fL (8.0-11.0); Monocytes % 8.8; Neutrophils % 61.1; Platelet Count 148 x1000/uL (130-400); RBC 3.14 m/cumm (4.00-5.20); RBC Distribution Width 13.6 % (11.7-14.6); White Blood Cell Count 4.67 k/cumm (4.4-10.8)
[2018-09-25 07:45] VITALS: BP 94/62; PULSE 83; RESP 20; TEMP 37.2; O2SAT 96
[2018-09-25 08:00] LABS: ALT 19 U/L (12-78); AST 13 U/L (15-37); Albumin 1.9 g/dL (3.4-5.0); Alkaline Phosphatase 173 U/L (46-116); Anion Gap 3.6 mmol/L (3-11); BUN 8 mg/dL (7-18); Bilirubin, Total 0.6 mg/dL (0.2-1.0); CO2 27.4 mmol/L (21.0-32.0); CREATININE 0.66 mg/dL (0.55-1.02); Calcium 8.2 mg/dL (8.5-10.1); Chloride 107 mmol/L (98-107); Glucose 76 mg/dL (70-100); Potassium 4.6 mmol/L (3.5-5.1); Sodium 138 mmol/L (136-145); Total Protein 5.4 g/dL (6.4-8.2)
[2018-09-25] MEDS: Anastrozole 1 MG TAB PO (09:12)
[2018-09-25] MEDS: oxyCODONE 5 mg/Acetaminophen 325 mg TAB 1 TAB PO ×4 (09:13→21:26)
[2018-09-25] MEDS: Budesonide/Formoterol 160/4.5 6 GM 60 PUFF INH IH ×2 (09:14→21:27)
[2018-09-25] MEDS: Calcium 600mg/Vit D 200U TAB 2 TAB PO ×2 (09:14→21:26)
[2018-09-25] MEDS: Cyclobenzaprine 10 MG TAB PO ×2 (09:14→21:26)
[2018-09-25] MEDS: Ascorbic Acid 500 MG TAB PO ×2 (09:15→21:26)
[2018-09-25] MEDS: Sertraline 50 MG TAB 100 MG PO (09:15)
[2018-09-25] MEDS: Glucosamine 500 MG CAP PO ×2 (09:15→21:26)
[2018-09-25] MEDS: Ferrous Sulfate 325 MG TAB PO (09:16)
[2018-09-25] MEDS: Cyanocobalamin 100 MCG TABLET PO (09:16)
[2018-09-25] MEDS: Dicyclomine 10 MG CAP PO ×2 (09:16→21:26)
[2018-09-25] MEDS: Pantoprazole 40 MG VIAL IVP (09:17)
[2018-09-25] MEDS: Normal Saline Flush 10 ML SYR IVP ×3 (09:17→16:45)
[2018-09-25] MEDS: Enoxaparin 40 MG/0.4 ML SYR SC (09:54)
[2018-09-25] MEDS: Methylphenidate 10 MG TAB PO ×2 (09:54→14:39)
[2018-09-25] MEDS: VANCOMYCIN 1,500 MG in Normal Saline 500 ML 333.333 MG IVPB ×2 (11:02→22:43)
--- NOTE | 2018-09-25 13:03 | PDOC.CMPRO ---
- If Service Date Differs Date of service: 09/25/18 Time of Service: 13:03 Care Management Progress Note S/O: Prema is lying in bed this morning when this filing writer visits. Her friend is in the room with her and both are pleasant and receptive to discussion. Prema states that she is doing 'okay' today and has requested the game Trey. does not have the Trey game, however provided Prema with checkers, tic tac toe, and a peg game which she was thankful for. 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 Discussed DC plans with Prema, whom states that her plan at this time is to return home when ready. A: 62 y/o female admitted 09/21/18 for abnormal LFTs P: Prema continues to receive IV antibiotics at this time with a midline. Prema met with Dr. Dorado, Palliative, 09/22/18 to discuss goals of care/code status. to continue to provide support to Prema throughout her hospitalization and discuss DC plans with her. Prema continues to state that she is not interested in SNF placement, and wants to return home when she is ready.
--- NOTE | 2018-09-25 13:22 | CMPROGNOTE_ITS ---
- If Service Date Differs Date of service: 09/25/18 Time of Service: 13:03 Care Management Progress Note S/O: Prema is lying in bed this morning when this song writer visits. Her friend is in the room with her and both are pleasant and receptive to discussion. Prema states that she is doing 'okay' today and has requested the game Trey. does not have the Trey game, however provided Prema with checkers, tic tac toe, and a peg game which she was thankful for. 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 Discussed DC plans with Prema, whom states that her plan at this time is to return home when ready. A: 62 y/o female admitted 09/21/18 for abnormal LFTs P: Prema continues to receive IV antibiotics at this time with a midline. Prema met with Dr. Dorado, Palliative, 09/22/18 to discuss goals of care/code status. to continue to provide support to Prema throughout her hospitalization and discuss DC plans with her. Prema continues to state that she is not interested in SNF placement, and wants to return home when she is ready.
[2018-09-25 14:34] LABS: Bilirubin Negative (Negative); Blood Trace-intact (Negative); Clarity Cloudy; Glucose Negative (Negative); Ketones Trace mg/dL (Negative); Leukocyte Esterase Small (Negative); Nitrite Negative (Negative); Specific Gravity >= 1.030 (1.005-1.025); Urobilinogen 0.2 EU/dL (Up TO 0.2)
[2018-09-25 14:48] LABS: WBC >50 HPF (0-5)
[2018-09-25 14:49] LABS: Other Cells Moderate Yeast (Negative)
[2018-09-25 14:50] LABS: Bacteria Many HPF (Negative); C & S Indicated? Yes
[2018-09-25] MEDS: LORazepam 2 MG/ML VIAL 1 MG IVP (16:45)
--- NOTE | 2018-09-25 17:06 | PGE_ITS ---
Date of Service Date of service: 09/25/18 Time of Service: 17:02 Assessment and Plan (1) Hypotension: Current visit: Yes Status: Acute Currently with hypotension and tachycardia both improved. Initial a-line confirmed blood pressures. Now with elevated temp when off meropenem. Unsure of etiology, but had originally considered sepsis as a possibility. Unfortunately blood cultures appear to be contaminant with growth of Staph Epidermidis from one set and Staph Hominis from the other, and urine culture with growth of Aerococcus Urinae and Cele, which is likely a colonization without evidence of any hydronephrosis, paranephric stranding, or fungus ball on prior CT. Fluconazole discontinued, but with meropenem restarted overnight due to fever. Repeated blood cultures, with abdominal ultrasound and tagged WBC Scan ordered and pending. Continue to monitor HR and BP closely. Continue IVF's for now. (2) Urinary tract infection: Current visit: Yes Status: Acute Urinalysis from 09/19 and 09/21 with evidence of infection with large Leukocyte Esterase, and >50 WBCs, but culture with >100,000 of mixed gram positive alvarado, Aerococcus Urinae which is likely not pathologic and easily treated. Also with growth of cele albicans. Review of patient's prior Urine Culture results from 08/30/2018, 09/2017, 05/2017, and 10/2016 all with growth of E.Coli sensitive to Fluoroquinolone therapy. However, despite antibiotic therapy there is clear evidence of pyuria with Leuk Esterase in her urine again. There was no evidence of pyelonephritis, on her CT from last admission - highly doubt invasive bladder or kidney infection. Arndt cath replaced and urinalysis repeated for now. Further infectious work-up as above. (3) Hematobilia: Current visit: Yes Status: Acute Initial admission from 09/18 with complete resolution of bleeding and improvement/normalization of LFTs back to baseline without intervention. Had been scheduled for transfer [place] [facility] [place] refused - however, both bleeding and abnormal liver tests all have resolved and normalized without intervention. Monitor LFTs'. (4) STACEY (obstructive sleep apnea): Current visit: Yes Status: Chronic Continue CPAP therapy. (5) DVT prophylaxis: Current visit: Yes Status: Acute On SCDs. Restarted Lovenox with resolution of blood in biliary drain. (6) Advanced directives, counseling/discussion: Current visit: Yes Status: Acute DNR/DNI Subjective Interval history since last seen: 62 year old woman with a prior medical history of ascending cholangitis, just discharged following an admission for hematobilia, presents back to [facility] Emergency Department per request of home health nursing with reported return of blood with clots in her Hepatobiliary drain bag. Ms. Watson has a prior history of morbid obesity, Breast Ca, CAD, COPD, STACEY, PHTN with severe TR, and GERD. She was admitted to [facility] [place] through 09/09/2018 with a diagnosis of Ascending Cholangitis and UTI with resultant septic shock, treated with IV Antibiotics and sent home on Cipro and Flagyl that she completed. She also had a biliary drain placed during that hospitalization. She initially presented to [facility] on 09/18 with complaint of blood draining from her biliary tube, decreased appetite, poor oral intake, nausea, and abdominal pain. Initial work-up at that time in the emergency room consisted of a CT scan showing the proper placement of the biliary tube without a hematoma or abscess. Labwork failed to show a leukocytosis and without anemia, but with evidence of an Acute Kidney Injury and elevated LFTs, including total bilirubin. Following discussion with GI recommendations were made for admission with IVF hydration and monitoring of vitals, labs, and blood loss from the biliary tube, with transfer for IR biliary tube replacement if needed. As the patient had completed all of her antibiotic treatment for cholangitis and there was no evidence of recurrent infection they did not recommend antibiotics. Following admission the patient's hematobilia resolved and her LFTs and total Bili improved significantly and at time of discharge her AST/ALT and Total Bilirubin had normalized, with a minimal and chronic appearing elevation in alk phos. She had an elevation in temperature with a fever of 38 on 09/18 in the setting of improving LFTs. Further work-up revealed evidence of a UTI, and she was initiated on antibiotic therapy without recurrence of a fever. She was discharged in stable condition. However, upon return home Visiting Nursing reported recurrence of clots and bloody drainage in her bag, and she was sent in to the ED for reevaluation. Work-up here showed worsening in her total Bilirubin and Alk Phos again, with normal AST and ALT. Of note, her urinalysis continued to be markedly abnormal with evidence of pyuria. The patient was also noted to have low blood pressure readings during the entirety of her last hospitalization, with systolic ranges of 70-90's. She continued to be hypotensive. Discussion with nursing during her last hospital stay appeared to indicate that the patient has been exceedingly difficult to measure blood pressure on - staff have had to resort to checking pressures on patient's one wrist or in her lower extremity, and due to her body habitus having a difficult time with the readings. Of note, Mrs. Watson has refused to allow bp checks on her upper extremities due to her history of Breast Ca. She had otherwise remained afebrile and non-toxic appearing, and continued to be upon presentation to the ED. Given the worsening LFTs and recurrence of bloody drainage in the hepatobiliary drain the patient was referred for admission for further evaluation and treatment. Following admission the patient had an arterial line placed, and hypotension was indeed confirmed. She was also in sinus tachycardia, but remained afebrile and nontoxic appearing. Her antibiotics were broadened. Blood Cultures grew positive for Gram Positive Cocci. A CT Angiogram of the chest was perofrmed and of poor quality and could not exclude a PE, and an ECHO was obtained and showed a normal LVEF, but with reduced RV Systolic Function. As the patient's labwork confirmed worsening bilirubin and alk phos, hemoglobin, and platelet count the patient was accepted by [facility] in transfer for potential sepsis from either urinary or biliary source, with plans for intervention on her drain via either flushing, replacement, or removal. However, patient at that point adamantly refused transfer, and declared her wishes to become DNR/DNI. She opted out of all treatment modalities, and wished to return home. Initial conversation was held between the patient and her laboratory animal caretaker, then repeated with the physician present, and again with 2 care managers present. Her transfer was cancelled, she was transferred out of the ICU, and a Hospice consult was placed. However, she then changed her mind and wished for full treatment but without transfer. She is currently back on all medications and antibiotics. The patient's Blood cultures all have returned with likely contaminent, and her urinalysis is not impressive for an infection. Her Fluconazole has been discontinued, and Meropenem was d/c'd yesterday, but with development of fever overnight. Patient without significant complaints. She remains afebrile. Exam Narrative Exam Narrative: Exam Narrative: General: Patient appears comfortable lying in bed, AAOX3, NAD. Morbidly obese. Neck: Supple CV: Regular,tachycardic, S1S2, No rubs, murmurs, or gallops. Pulmonary: Clear to auscultation bilaterally, no crackles, wheezing, or rhonchi on exam limited by body habitus. Abdomen: + Bowel Sounds, soft, nontender, nondistended. Hepatobiliary drainage bag with biliary output, clots and bleeding resolved Vascular: + b/l LE edema, chronic and nonpitting Psych: Normal mood and affect. Objective Objective Clinical Data: Abnormal lab results 09/25/18 09/25/18 09/25/18 Range/Units 02:27 06:50 06:50 RBC 3.14 L (4.00-5.20) m/cumm Hgb 10.4 L (12.0-15.5) g/dL Hct 35.0 L (36.0-46.0) % MCV 111.5 H (80-95) fL MCH 33.1 H (27.0-33.0) pg MCHC 29.7 L (32.0-36.0) g/dL MPV 11.1 H (8.0-11.0) fL Absolute Lymphocytes 0.73 L (1.2-3.4) k/cumm Calcium 8.2 L (8.5-10.1) mg/dL AST 13 L (15-37) U/L Alkaline Phosphatase 173 H (46-116) U/L Total Protein 5.4 L (6.4-8.2) g/dL Albumin 1.9 L (3.4-5.0) g/dL Ur Specific [place] (1.005-1.025) Urine Protein (Negative) mg/dL Urine Ketones (Negative) mg/dL Urine Blood Trace-intact H (Negative) Ur Leukocyte Esterase Moderate H (Negative) 09/25/18 Range/Units 14:20 RBC (4.00-5.20) m/cumm Hgb (12.0-15.5) g/dL Hct (36.0-46.0) % MCV (80-95) fL MCH (27.0-33.0) pg MCHC (32.0-36.0) g/dL MPV (8.0-11.0) fL Absolute Lymphocytes (1.2-3.4) k/cumm Calcium (8.5-10.1) mg/dL AST (15-37) U/L Alkaline Phosphatase (46-116) U/L Total Protein (6.4-8.2) g/dL Albumin (3.4-5.0) g/dL Ur Specific [place] >= 1.030 H (1.005-1.025) Urine Protein 100 H (Negative) mg/dL Urine Ketones Trace H (Negative) mg/dL Urine Blood Trace-intact H (Negative) Ur Leukocyte Esterase Small H (Negative) Vital Signs Temperature 37.2 C 09/25/18 07:45 Temperature Source Tympanic 09/25/18 07:45 Pulse 83 09/25/18 07:45 Pulse Rhythm Regular 09/25/18 11:11 Pulse 127 H 09/22/18 10:00 Respiratory Rate 20 09/25/18 07:45 Respiratory Effort 09/25/18 11:11 Respiratory Depth Normal 09/25/18 11:11 Respiratory Pattern Normal 09/25/18 11:11 Blood Pressure 94/62 L 09/25/18 07:45 Blood Pressure Mean 61 09/22/18 10:00 Blood Pressure Position Supine 09/21/18 18:30 Pulse Oximetry 96 09/25/18 07:45 Oxygen Delivery Method Room Air 09/25/18 07:45 Oxygen Flow Rate 0 09/25/18 07:45 Pain Level 5 09/25/18 11:36 Comment 09/25/18 00:26 Intake & Output 09/24/18 09/25/18 09/25/18 23:59 11:59 23:59 Intake Total 3430 / 3430 1240 / 1240 600 / 600 Output Total 1000 / 1000 650 / 650 500 / 500 Balance 2430 / 2430 590 / 590 100 / 100 Weight 121.1 kg Intake: IV 2520 / 2520 1000 / 1000 600 / 600 Oral 360 / 360 240 / 240 Injectate 550 / 550 Right Biliary Drainage Bag 550 / 550 Output: Drainage 350 / 350 350 / 350 200 / 200 Right Biliary Drainage Bag 350 / 350 350 / 350 200 / 200 Urine 650 / 650 300 / 300 300 / 300 Other: Urine Color Yellow Yellow Urine Appearance Clear Clear Urine Odor None Comment emptied the above amt from arndt Stool Size Copious Stool Characteristics Soft Pedraza Laboratory Results WBC 4.67 k/cumm (4.4-10.8) 09/25/18 06:50 RBC 3.14 m/cumm (4.00-5.20) L 09/25/18 06:50 Hgb 10.4 g/dL (12.0-15.5) L 09/25/18 06:50 Hct 35.0 % (36.0-46.0) L 09/25/18 06:50 MCV 111.5 fL (80-95) H 09/25/18 06:50 MCH 33.1 pg (27.0-33.0) H 09/25/18 06:50 MCHC 29.7 g/dL (32.0-36.0) L 09/25/18 06:50 RDW 13.6 % (11.7-14.6) 09/25/18 06:50 Plt Count 148 x1000/uL (130-400) 09/25/18 06:50 MPV 11.1 fL (8.0-11.0) H 09/25/18 06:50 Immature Gran % 0.2 09/25/18 06:50 Neutrophils % 61.1 09/25/18 06:50 Lymphocytes % 15.6 09/25/18 06:50 Monocytes % 8.8 09/25/18 06:50 Eosinophils % 13.7 09/25/18 06:50 Basophils % 0.6 09/25/18 06:50 Absolute Neutrophils 2.85 k/cumm (1.2-6.7) 09/25/18 06:50 Absolute Lymphocytes 0.73 k/cumm (1.2-3.4) L 09/25/18 06:50 Absolute Monocytes 0.41 k/cumm (0.11-0.7) 09/25/18 06:50 Absolute Eosinophils 0.64 k/cumm (0.0-0.7) 09/25/18 06:50 Absolute Basophils 0.03 k/cumm (0.0-0.2) 09/25/18 06:50 Differential Comment Diff reviewed 09/21/18 14:45 RBC Morphology See below 09/21/18 14:45 Macrocytosis 1+ 09/21/18 14:45 ESR 63 MM/HR (0-30) H 09/22/18 06:45 PT Cancelled 09/22/18 08:25 INR Cancelled 09/22/18 08:25 Sodium 138 mmol/L (136-145) 09/25/18 06:50 Potassium 4.6 mmol/L (3.5-5.1) 09/25/18 06:50 Chloride 107 mmol/L (98-107) 09/25/18 06:50 Carbon Dioxide 27.4 mmol/L (21.0-32.0) 09/25/18 06:50 Anion Gap 3.6 mmol/L (3-11) 09/25/18 06:50 BUN 8 mg/dL (7-18) 09/25/18 06:50 Creatinine 0.66 mg/dL (0.55-1.02) 09/25/18 06:50 Estimated GFR/1.73 m2 >= 60.00 (mL/min/1.73m2) 09/25/18 06:50 Glucose 76 mg/dL (70-100) 09/25/18 06:50 Lactate 1.0 mmol/L (0.6-1.4) 09/22/18 07:02 Calcium 8.2 mg/dL (8.5-10.1) L 09/25/18 06:50 Magnesium 1.7 mg/dL (1.8-2.4) L 09/23/18 11: Total Bilirubin 0.6 mg/dL (0.2-1.0) 09/25/18 06:50 AST 13 U/L (15-37) L 09/25/18 06:50 ALT 19 U/L (12-78) 09/25/18 06:50 Alkaline Phosphatase 173 U/L (46-116) H 09/25/18 06:50 Troponin I < 0.02 ng/mL (0.00-0.06) 09/22/18 06:45 C-Reactive Protein 2.63 mg/dL (0.0-0.3) H 09/22/18 06:45 Total Protein 5.4 g/dL (6.4-8.2) L 09/25/18 06:50 Albumin 1.9 g/dL (3.4-5.0) L 09/25/18 06:50 Urine Color Yellow (Yellow) 09/25/18 14:20 Urine Clarity Cloudy 09/25/18 14:20 Urine pH 6.0 (5-8) 09/25/18 14:20 Ur Specific [place] >= 1.030 (1.005-1.025) H 09/25/18 14:20 Urine Protein 100 mg/dL (Negative) H 09/25/18 14:20 Urine Ketones Trace mg/dL (Negative) H 09/25/18 14:20 Urine Blood Trace-intact (Negative) H 09/25/18 14:20 Urine Nitrite Negative (Negative) 09/25/18 14:20 Urine Bilirubin Negative (Negative) 09/25/18 14:20 Urine Urobilinogen 0.2 EU/dL (Up TO 0.2) 09/25/18 14:20 Ur Leukocyte Esterase Small (Negative) H 09/25/18 14:20 Urine RBC Not Applicable 09/25/18 14:20 Urine WBC >50 HPF (0-5) 09/25/18 14:20 Ur Epithelial Cells Not Applicable 09/25/18 14:20 Urine Crystals Not Applicable 09/25/18 14:20 Urine Bacteria Many HPF (Negative) 09/25/18 14:20 Urine Casts Negative LPF (Negative) 09/21/18 16:00 Urine Mucus Not Applicable 09/25/18 14:20 Urine Other Moderate yeast (Negative) 09/25/18 14:20 Ur Culture Indicated? Yes 09/25/18 14:20 Urine Glucose Negative mg/dL (Negative) 09/25/18 14:20 Vancomycin Trough 15.5 ug/mL (10.0-20.0) 09/23/18 20:40
[2018-09-25] MEDS: MEROPENEM 1 GM in Normal Saline 100 ML IVPB ×2 (18:23→21:27)
[2018-09-25 18:34] VITALS: BP 87/46; PULSE 93; RESP 20; TEMP 37.6; O2SAT 97
[2018-09-25] MEDS: clonazePAM 1 MG TAB 2 MG PO (21:25)
[2018-09-25] MEDS: Albuterol/Ipratropium 3 ML UPD VIAL IH (21:25)
[2018-09-25] MEDS: Zolpidem 10 MG TAB PO (21:26)
--- NOTE | 2018-09-25 21:59 | DI.VRAD_ITS ---
EXAM: [place] RADIOPHARM LOC INFLAM PROCESS WHOLE BODY EXAM DATE/TIME: 09/25/2018 8:35 PM CLINICAL HISTORY: 62 years old, female; Signs and symptoms; Symptoms: Febrile illness; Patient HX: Cholangitis, S/P t tube TECHNIQUE: Anterior and posterior whole-body images were obtained approximately 1 hour and 3.5 hours following the readministration of the patient's white blood cells radiolabeled with 20.6 mCi technetium 99m. Additionally, static oblique images obtained. No SPECT images available. COMPARISON: No relevant prior studies available. FINDINGS: The technetium 99m WBC scan demonstrates small focus of abnormal radiotracer accumulation in the right right ishmael-abdomen below the liver, seen on anterior projection on both early and delayed images. There is physiologic radiotracer activity within liver, spleen, and bone marrow. Physiological activity within urinary catheter/urinary bag. Focal activity within soft tissues of the right upper extremity is related to radiotracer injection site. IMPRESSION: 1. Abnormal Tc-99M WBC scintigraphy. 2. Small focus of abnormal radiotracer accumulation within right hemiabdomen, at the expected location of the gallbladder, correlate clinically, may represent cholangitis/cholecystitis. No other foci of abnormal radiotracer accumulation. Dictated and Authenticated by: Ronald Talbot MD. Ordering:[facility] EMANUEL OSEI MD
[2018-09-26] VITALS (8 sets, daily range): BP systolic 72–100; BP diastolic 48–62; PULSE 92–107; RESP 1–22; TEMP 36.9–38; O2SAT 95–100
[2018-09-26] MEDS: MEROPENEM 1 GM in Normal Saline 100 ML IVPB ×5 (01:42→19:49)
[2018-09-26] MEDS: Normal Saline 1,000 ML 150 ML IV ×3 (01:43→19:39)
[2018-09-26] MEDS: Metoprolol 25 MG TAB PO (06:08)
[2018-09-26] MEDS: oxyCODONE 5 mg/Acetaminophen 325 mg TAB 1 TAB PO ×7 (06:45→23:23)
[2018-09-26] MEDS: Albuterol/Ipratropium 3 ML UPD VIAL IH ×2 (07:48→19:40)
[2018-09-26] MEDS: Budesonide/Formoterol 160/4.5 6 GM 60 PUFF INH IH ×2 (07:55→19:39)
[2018-09-26 08:00] LABS: Abs Immature Grans 0.02 k/cumm (0.0-0.09); Absolute Basophil Count 0.03 k/cumm (0.0-0.2); Absolute Eosinophil Count 0.53 k/cumm (0.0-0.7); Absolute Lymphocyte Count 0.56 k/cumm (1.2-3.4); Absolute Monocyte Count 0.29 k/cumm (0.11-0.7); Absolute Neutrophil Count 3.01 k/cumm (1.2-6.7); Basophils % 0.7; Eosinophils % 11.9; HCT 34.3 % (36.0-46.0); HGB 10.2 g/dL (12.0-15.5); Immature Grans % 0.5; Lymphocytes % 12.6; Mean Corp. HGB Concentration 29.7 g/dL (32.0-36.0); Mean Platelet Volume 11.1 fL (8.0-11.0); Monocytes % 6.5; Neutrophils % 67.8; RBC 3.09 m/cumm (4.00-5.20); RBC Distribution Width 13.8 % (11.7-14.6); White Blood Cell Count 4.44 k/cumm (4.4-10.8)
[2018-09-26 08:02] LABS: ALT 38 U/L (12-78); AST 52 U/L (15-37); Albumin 1.9 g/dL (3.4-5.0); Alkaline Phosphatase 415 U/L (46-116); Anion Gap 5.3 mmol/L (3-11); BUN 7 mg/dL (7-18); Bilirubin, Total 0.7 mg/dL (0.2-1.0); CO2 26.7 mmol/L (21.0-32.0); CREATININE 0.58 mg/dL (0.55-1.02); Calcium 8.5 mg/dL (8.5-10.1); Chloride 107 mmol/L (98-107); Glucose 102 mg/dL (70-100); Potassium 3.9 mmol/L (3.5-5.1); Sodium 139 mmol/L (136-145); Total Protein 5.2 g/dL (6.4-8.2)
[2018-09-26 08:56] LABS: Diff Comment RBC Morph Reviewed
[2018-09-26 08:57] LABS: Macrocytosis 3+; Platelet Count 138 x1000/uL (130-400); Polychromasia Present
[2018-09-26] MEDS: Pantoprazole 40 MG VIAL IVP (09:23)
[2018-09-26] MEDS: Normal Saline Flush 10 ML SYR IVP ×2 (09:23→19:39)
[2018-09-26] MEDS: Enoxaparin 40 MG/0.4 ML SYR SC (09:24)
[2018-09-26] MEDS: Ferrous Sulfate 325 MG TAB PO (09:25)
[2018-09-26] MEDS: Cyanocobalamin 100 MCG TABLET PO (09:25)
[2018-09-26] MEDS: Loperamide 2 MG CAP PO ×2 (09:25→18:26)
[2018-09-26] MEDS: Calcium 600mg/Vit D 200U TAB 2 TAB PO ×2 (09:26→19:41)
[2018-09-26] MEDS: Glucosamine 500 MG CAP PO ×2 (09:26→19:41)
[2018-09-26] MEDS: Dicyclomine 10 MG CAP PO ×2 (09:27→19:40)
[2018-09-26] MEDS: Methylphenidate 10 MG TAB PO ×2 (09:27→15:24)
[2018-09-26] MEDS: Sertraline 50 MG TAB 100 MG PO (09:27)
[2018-09-26] MEDS: Cyclobenzaprine 10 MG TAB PO ×2 (09:28→19:41)
[2018-09-26] MEDS: Anastrozole 1 MG TAB PO (09:28)
[2018-09-26] MEDS: Ascorbic Acid 500 MG TAB PO ×2 (09:28→19:41)
[2018-09-26 09:46] LABS: Vancomycin, Trough 26.6 ug/mL (10.0-20.0)
[2018-09-26 10:58] LABS: Basophilic Stippling Present
[2018-09-26 11:20] LABS: Magnesium 1.4 mg/dL (1.8-2.4)
--- NOTE | 2018-09-26 12:14 | CMPROGNOTE_ITS ---
- If Service Date Differs Date of service: 09/26/18 Time of Service: 11:53 Care Management Progress Note S/O: Prema is lying in bed when this medical technical writer visits this morning. She discusses having a difficult time with a nurse earlier this morning, and stated that she wanted to make sure she did not have to experience having someone being rude to her, and arguing with her. MICHAEL spoke with [facility]RIST[facility], to report of Prema's complaint this morning, and [facility]ST[facility], states that she will look into this and follow up. Prema states that she is hopeful to get some rest today, she states that she is tired this morning. CM discussed DC plans with Prema, she states that she does not want to consider a SNF at this time and only wants to go home when she is medically cleared. A: 62 y/o female admitted 09/21/18 for abnormal LFTs P: Prema continues to receive IV antibiotics at this time with a midline. Prema met with Dr. Dorado, Palliative, 09/22/18 to discuss goals of care/code status. CM to continue to provide support to Prema throughout her hospitalization and discuss DC plans with her. Prema continues to state that she is not interested in SNF placement, and wants to return home when she is ready.
[2018-09-26] MEDS: MetroNIDAZOLE 500 MG/100 ML BAG 100 MG IVPB ×2 (12:41→20:17)
[2018-09-26] MEDS: VANCOMYCIN 1,250 MG in Normal Saline 250 ML 166.667 MG IVPB (15:24)
--- NOTE | 2018-09-26 17:31 | W.PM.PROGNOT ---
Date of Service Date of service: 09/26/18 Time of Service: 16:00 Assessment and Plan (1) Sepsis: Current visit: Yes Status: Acute Due to recurrent cholangitis with nonfunction (?obstructed) biliary drain. It is unclear whether or not it could have been dislodged. No ultrasound available at [facility] this weekend. May require CT abdomen - however, if there is a chance that the patient might let us transfer her to either [facility] or [facility], I would prefer that she get the CT done there to avoid the extra radiation. I attempted to call the patient's son at the other number in the chart and left a voicemail. I explained to the patient that there is not much we can do to help her at [facility] other than treat her with antiobiotics. We are unable to culture the biliary drainage due to the fact that there is no output. I did add flagyl to her antibiotics. I have consulted Dr Nicole of general surgery - she may have to have the drain flushed, but it may not be safe to do so unless we can confirm the location of the drain - hard to do without ultrasound available. Moreover, I am not sure if the patient has capacity to make this medical decision based on the paranoid ideation I am observing on my interview with her today. I will spend more time talking with her tomorrow and, if the decision is felt to be consistently irrational, competency evaluation may be in order. (2) Hypotension: Current visit: Yes Status: Acute Will bolus 1 L of NS now. Continue MIVF. Patient previously refused pressors and insisted on continuing to take her beta blockers. (3) Hematobilia: Current visit: Yes Status: Acute Now concern for clogging vs dislodging of the biliary drain. Ultimately, we have little to offer this patient with interrogation, removal, or replacement of the drain. General surgery is consulted - feels similarly. Read discussion re patient's decision above (4) Paroxysmal atrial fibrillation: Current visit: Yes Status: Chronic Continue metoprolol. Presently appears to be in NSR. (5) Right heart failure with reduced right ventricular function: Current visit: Yes Status: Chronic Based on the latest echo we have, her pulmonary hypertension is moderate, and her tricuspid regurgitation is mild. She does appear to have moderately dilated RV and reduced RV systolic function. Monitor volume status carefully - at this point, the benefits of IV fluids outweigh the risks. (6) Depression: Current visit: No Status: Chronic I question psychotic features. Consider competency evaluation. (7) STACEY (obstructive sleep apnea): Current visit: Yes Status: Chronic Continue CPAP therapy. (8) Urinary tract infection: Current visit: Yes Status: Acute Unclear if patient had a true UTI or colonization. E. coli prsent on cx from 08/2018 has been treated. Gao cath replaced; repeat urine C&S pending. (9) DVT prophylaxis: Current visit: Yes Status: Acute Lovenox (10) Hypomagnesemia: Current visit: Yes Status: Acute Replete and monitor (11) Discharge planning issues: Current visit: Yes Status: Acute The latest update is that the patient is DNR, DNI, not comfort care, does not want pressors, does not want transfer to a tertiary care facility. It is not clear if she has capacity to make these decisions. Subjective Interval history since last seen: The patient tells me that the nursing are giving her medications to make her incompetent. She whispers this to me after she had me close the door. She states she doesn't trust nursing here. She identifies one person that's been taking care of her that she trusts. Per nursing, the biliary drain has had no output at all today. The patient states that she thinks the drain may have been pulled out of its position yesterday accidentally. She continues to have discomfort in her RUQ. She denies any dizziness, chest pain, complains of sensitivity to light, denies any nausea or vomiting at this time. She is repeating that she does not want to go to [facility]. I asked her about [facility] - she states that no one would come to see her there. She is unable to make this decision before talking to her son. We tried calling her son together - the call would not go through. Exam Narrative Exam Narrative: General: Middle Aged female, laying in bed, in the dark, whispering, appears paranoid HEENT: EOMI, MMM Heart: RRR, tachycardic Lungs: Diminished breath sounds B GI: abdomen soft; tender in RUQ - drain without output Extremities 2+ B foot and ankle edema Objective Objective Clinical Data: Abnormal lab results 09/26/18 09/26/18 09/26/18 Range/Units 07:20 07:20 09:20 RBC 3.09 L (4.00-5.20) m/cumm Hgb 10.2 L (12.0-15.5) g/dL Hct 34.3 L (36.0-46.0) % MCV 111.0 H (80-95) fL MCHC 29.7 L (32.0-36.0) g/dL MPV 11.1 H (8.0-11.0) fL Absolute Lymphocytes 0.56 L (1.2-3.4) k/cumm Glucose 102 H (70-100) mg/dL Magnesium 1.4 L (1.8-2.4) mg/dL AST 52 H (15-37) U/L Alkaline Phosphatase 415 H (46-116) U/L Total Protein 5.2 L (6.4-8.2) g/dL Albumin 1.9 L (3.4-5.0) g/dL Vancomycin Trough 26.6 H* (10.0-20.0) ug/mL Vital Signs Temperature 37.2 C 09/26/18 17:08 Temperature Source Tympanic 09/26/18 17:08 Pulse 95 H 09/26/18 17:08 Pulse Rhythm Regular 09/26/18 09:10 Pulse 127 H 09/22/18 10:00 Respiratory Rate 20 09/26/18 17:08 Respiratory Effort Non-Labored 09/26/18 09:10 Respiratory Depth Normal 09/26/18 09:10 Respiratory Pattern Normal 09/26/18 09:10 Blood Pressure 82/58 L 09/26/18 17:08 Blood Pressure Mean 61 09/22/18 10:00 Blood Pressure Position Supine 09/21/18 18:30 Pulse Oximetry 95 09/26/18 17:08 Oxygen Delivery Method Room Air 09/26/18 17:08 Oxygen Flow Rate 0 09/26/18 17:08 Pain Level 7 09/26/18 12:41 Comment 09/25/18 00:26 Intake & Output 09/25/18 09/26/18 09/26/18 23:59 11:59 23:59 Intake Total 1362.5 / 1362.5 1880 / 1880 Output Total 1050 / 1050 1325 / 1325 Balance 312.5 / 312.5 555 / 555 Weight 121 kg Intake: IV 1362.5 / 1362.5 1330 / 1330 Oral 550 / 550 Output: Drainage 200 / 200 25 / 25 Right Biliary Drainage Bag 200 / 200 25 / 25 Urine 850 / 850 1300 / 1300 Other: Urine Color Yellow Straw [place] Urine Appearance Cloudy Clear Stool Size Moderate Large Stool Characteristics Soft Soft Pedraza Formed Laboratory Results WBC 4.44 k/cumm (4.4-10.8) 09/26/18 07:20 RBC 3.09 m/cumm (4.00-5.20) L 09/26/18 07:20 Hgb 10.2 g/dL (12.0-15.5) L 09/26/18 07:20 Hct 34.3 % (36.0-46.0) L 09/26/18 07:20 MCV 111.0 fL (80-95) H 09/26/18 07:20 MCH 33.0 pg (27.0-33.0) 09/26/18 07:20 MCHC 29.7 g/dL (32.0-36.0) L 09/26/18 07:20 RDW 13.8 % (11.7-14.6) 09/26/18 07:20 Plt Count 138 x1000/uL (130-400) 09/26/18 07:20 MPV 11.1 fL (8.0-11.0) H 09/26/18 07:20 Immature Gran % 0.5 09/26/18 07:20 Neutrophils % 67.8 09/26/18 07:20 Lymphocytes % 12.6 09/26/18 07:20 Monocytes % 6.5 09/26/18 07:20 Eosinophils % 11.9 09/26/18 07:20 Basophils % 0.7 09/26/18 07:20 Absolute Neutrophils 3.01 k/cumm (1.2-6.7) 09/26/18 07:20 Absolute Lymphocytes 0.56 k/cumm (1.2-3.4) L 09/26/18 07:20 Absolute Monocytes 0.29 k/cumm (0.11-0.7) 09/26/18 07:20 Absolute Eosinophils 0.53 k/cumm (0.0-0.7) 09/26/18 07:20 Absolute Basophils 0.03 k/cumm (0.0-0.2) 09/26/18 07:20 Differential Comment Rbc morph reviewed 09/26/18 07:20 RBC Morphology See below 09/26/18 07:20 Polychromasia Present 09/26/18 07:20 Basophilic Stippling Present 09/26/18 07:20 Macrocytosis 3+ 09/26/18 07:20 ESR 63 MM/HR (0-30) H 09/22/18 06:45 PT Cancelled 09/22/18 08:25 INR Cancelled 09/22/18 08:25 Sodium 139 mmol/L (136-145) 09/26/18 07:20 Potassium 3.9 mmol/L (3.5-5.1) 09/26/18 07:20 Chloride 107 mmol/L (98-107) 09/26/18 07:20 Carbon Dioxide 26.7 mmol/L (21.0-32.0) 09/26/18 07:20 Anion Gap 5.3 mmol/L (3-11) 09/26/18 07:20 BUN 7 mg/dL (7-18) 09/26/18 07:20 Creatinine 0.58 mg/dL (0.55-1.02) 09/26/18 07:20 Estimated GFR/1.73 m2 >= 60.00 (mL/min/1.73m2) 09/26/18 07:20 Glucose 102 mg/dL (70-100) H 09/26/18 07:20 Lactate 1.0 mmol/L (0.6-1.4) 09/22/18 07:02 Calcium 8.5 mg/dL (8.5-10.1) 09/26/18 07:20 Magnesium 1.4 mg/dL (1.8-2.4) L 09/26/18 07:20 Total Bilirubin 0.7 mg/dL (0.2-1.0) 09/26/18 07:20 AST 52 U/L (15-37) H 09/26/18 07:20 ALT 38 U/L (12-78) 09/26/18 07:20 Alkaline Phosphatase 415 U/L (46-116) H 09/26/18 07:20 Troponin I < 0.02 ng/mL (0.00-0.06) 09/22/18 06:45 C-Reactive Protein 2.63 mg/dL (0.0-0.3) H 09/22/18 06:45 Total Protein 5.2 g/dL (6.4-8.2) L 09/26/18 07:20 Albumin 1.9 g/dL (3.4-5.0) L 09/26/18 07:20 Urine Color Yellow (Yellow) 09/25/18 14:20 Urine Clarity Cloudy 09/25/18 14:20 Urine pH 6.0 (5-8) 09/25/18 14:20 Ur Specific [place] >= 1.030 (1.005-1.025) H 09/25/18 14:20 Urine Protein 100 mg/dL (Negative) H 09/25/18 14:20 Urine Ketones Trace mg/dL (Negative) H 09/25/18 14:20 Urine Blood Trace-intact (Negative) H 09/25/18 14:20 Urine Nitrite Negative (Negative) 09/25/18 14:20 Urine Bilirubin Negative (Negative) 09/25/18 14:20 Urine Urobilinogen 0.2 EU/dL (Up TO 0.2) 09/25/18 14:20 Ur Leukocyte Esterase Small (Negative) H 09/25/18 14:20 Urine RBC Not Applicable 09/25/18 14:20 Urine WBC >50 HPF (0-5) 09/25/18 14:20 Ur Epithelial Cells Not Applicable 09/25/18 14:20 Urine Crystals Not Applicable 09/25/18 14:20 Urine Bacteria Many HPF (Negative) 09/25/18 14:20 Urine Casts Negative LPF (Negative) 09/21/18 16:00 Urine Mucus Not Applicable 09/25/18 14:20 Urine Other Moderate yeast (Negative) 09/25/18 14:20 Ur Culture Indicated? Yes 09/25/18 14:20 Urine Glucose Negative mg/dL (Negative) 09/25/18 14:20 Vancomycin Trough 26.6 ug/mL (10.0-20.0) H* 09/26/18 09:20
[2018-09-26] MEDS: Normal Saline 1,000 ML 1000 ML IV (18:05)
[2018-09-26] MEDS: Zolpidem 10 MG TAB PO (19:52)
[2018-09-26] MEDS: clonazePAM 1 MG TAB 2 MG PO (19:52)
[2018-09-26] MEDS: MAGNESIUM SULFATE 4 GM/100 ML BAG IVPB (22:30)
[2018-09-27] VITALS (7 sets, daily range): BP systolic 82–114; BP diastolic 48–62; PULSE 97–108; RESP 2–20; TEMP 36.6–37.2; O2SAT 93–97
[2018-09-27] MEDS: MEROPENEM 1 GM in Normal Saline 100 ML IVPB ×6 (00:05→20:08)
[2018-09-27] MEDS: VANCOMYCIN 1,250 MG in Normal Saline 250 ML 166.667 MG IVPB (02:46)
[2018-09-27] MEDS: MetroNIDAZOLE 500 MG/100 ML BAG 100 MG IVPB ×3 (04:30→20:08)
[2018-09-27] MEDS: oxyCODONE 5 mg/Acetaminophen 325 mg TAB 1 TAB PO ×5 (04:36→20:07)
[2018-09-27 07:01] LABS: Abs Immature Grans 0.02 k/cumm (0.0-0.09); Absolute Basophil Count 0.04 k/cumm (0.0-0.2); Absolute Lymphocyte Count 0.54 k/cumm (1.2-3.4); Absolute Neutrophil Count 2.88 k/cumm (1.2-6.7); Basophils % 0.9; Eosinophils % 15.3; HCT 32.5 % (36.0-46.0); HGB 9.7 g/dL (12.0-15.5); Immature Grans % 0.4; Lymphocytes % 11.8; Mean Corp. HGB Concentration 29.8 g/dL (32.0-36.0); Mean Corpuscular Hemoglobin 33.3 pg (27.0-33.0); Mean Corpuscular Volume 111.7 fL (80-95); Mean Platelet Volume 10.6 fL (8.0-11.0); Monocytes % 8.7; Neutrophils % 62.9; Platelet Count 143 x1000/uL (130-400); RBC 2.91 m/cumm (4.00-5.20); White Blood Cell Count 4.58 k/cumm (4.4-10.8)
[2018-09-27 07:13] LABS: Prothrombin Time 9.8 sec (9.3-10.8)
[2018-09-27 07:19] LABS: ALT 28 U/L (12-78); AST 29 U/L (15-37); Albumin 1.7 g/dL (3.4-5.0); Alkaline Phosphatase 319 U/L (46-116); Anion Gap 4.9 mmol/L (3-11); BUN 5 mg/dL (7-18); Bilirubin, Direct 0.29 mg/dL (0.00-0.20); Bilirubin, Total 0.5 mg/dL (0.2-1.0); CO2 29.1 mmol/L (21.0-32.0); CREATININE 0.52 mg/dL (0.55-1.02); Calcium 7.8 mg/dL (8.5-10.1); Chloride 106 mmol/L (98-107); Glucose 76 mg/dL (70-100); Magnesium 2.1 mg/dL (1.8-2.4); Potassium 4.2 mmol/L (3.5-5.1); Sodium 140 mmol/L (136-145); Total Protein 4.8 g/dL (6.4-8.2)
[2018-09-27 07:38] LABS: ESR 56 MM/HR (0-30)
[2018-09-27] MEDS: Normal Saline 1,000 ML 1000 ML IV (07:43)
[2018-09-27] MEDS: Budesonide/Formoterol 160/4.5 6 GM 60 PUFF INH IH ×2 (09:25→20:07)
[2018-09-27] MEDS: Normal Saline Flush 10 ML SYR IVP ×3 (09:27→20:08)
[2018-09-27] MEDS: Pantoprazole 40 MG VIAL IVP (09:28)
[2018-09-27] MEDS: Enoxaparin 40 MG/0.4 ML SYR SC (09:29)
[2018-09-27] MEDS: Methylphenidate 10 MG TAB PO ×2 (09:29→14:03)
[2018-09-27] MEDS: Glucosamine 500 MG CAP PO ×2 (09:29→20:08)
[2018-09-27] MEDS: Cyclobenzaprine 10 MG TAB PO ×2 (09:29→20:07)
[2018-09-27] MEDS: Ferrous Sulfate 325 MG TAB PO (09:30)
[2018-09-27] MEDS: Dicyclomine 10 MG CAP PO ×2 (09:31→20:07)
[2018-09-27] MEDS: Anastrozole 1 MG TAB PO (09:31)
[2018-09-27] MEDS: Calcium 600mg/Vit D 200U TAB 2 TAB PO ×2 (09:31→20:07)
[2018-09-27] MEDS: Sertraline 50 MG TAB 100 MG PO (09:31)
[2018-09-27] MEDS: Cyanocobalamin 100 MCG TABLET PO (09:31)
[2018-09-27] MEDS: Ascorbic Acid 500 MG TAB PO ×2 (09:31→20:07)
[2018-09-27] MEDS: Albuterol/Ipratropium 3 ML UPD VIAL IH ×2 (11:11→20:08)
[2018-09-27] MEDS: Normal Saline 1,000 ML 150 ML IV (12:33)
--- NOTE | 2018-09-27 12:57 | PDOC.CMPRO ---
- If Service Date Differs Date of service: 09/27/18 Time of Service: 12:57 Care Management Progress Note S/O: CM met with Prema this morning whom was lying in bed with her room darkened. Prema reports her index finger hurting, and concern in regards to having injections in her knees which she states was previously scheduled for 10/01. CM notified Dr. Charles of the above concerns of Prema's and Dr. Charles will address this. No change in DC plan at this time. A: 62 y/o female admitted 09/21/18 for abnormal LFTs P: Prema continues to receive IV antibiotics at this time with a midline. Prema met with Dr. Dorado, Palliative, 09/22/18 to discuss goals of care/code status. CM to continue to provide support to Prema throughout her hospitalization and discuss DC plans with her. Prema continues to state that she is not interested in SNF placement, and wants to return home when she is ready.
[2018-09-27] MEDS: VANCOMYCIN 1,250 MG in Normal Saline 250 ML 166.67 MG IVPB (14:38)
--- NOTE | 2018-09-27 15:48 | DI.RAD_ITS ---
SYMPTOMS/DIAGNOSIS: VERIFY PLACEMENT OF BILIARY DRAIN FLAT PLATE ABDOMEN: Comparison CT scans are 09/13. There is a percutaneous drain seen superimposed over the right upper quadrant. The pigtail is in the expected location of the second portion of the duodenum.
--- NOTE | 2018-09-27 16:34 | W.SURGCON ---
Date of service: 09/27/18 Time of Service: 16:35 Assessment and Plan (1) Fever and chills: Current visit: Yes Status: Acute 62-year-old woman with hepatobiliary drain in place. She been treated here prior for sepsis transferred to an outside facility for ascending cholangitis was treated with hepatobiliary tube. She now presents with blood from the hepatobiliary tube and more recently fevers and chills. Concern is for recurrence of ascending cholangitis. Surgically we have few if no options to provide her as we have no interventional radiology available here at [facility]. In the open common bile duct exploration could be performed but this would be at considerable morbidity and mortality for her given her multiple comorbidities, and this is even if she would let us perform the procedure as she is currently refusing most things including transfer to an outside facility. She is currently a DNI DNR. Though there is question as to her mental competence in determining this given her mental health history. The simple answer may be to remove the embedded biliary tube as this may be the cause of her infection, but without any way to replace the tube other than general surgery; she would be better served at a facility that had interventional radiology and other less invasive means to treat her health issues. History of Present Illness Chief Complaint: Hemobilia Narrative: I have been asked to see Mrs. Vieyra for her bloody drainage from her hepatobiliary tube. With her history of a sending cholangitis and now with subjective fevers again. Consults Consult date: 09/26/18 Requesting physician: Francheska Charles Review of Systems Review of Systems All systems reviewed & are unremarkable except as noted in HPI and below PFSH Morbid obesity with BMI of 45.0-49.9, adult (Chronic) Depression (Chronic) History of DVD (Chronic) DJD (degenerative joint disease) (Chronic) History of PSVT (paroxysmal supraventricular tachycardia) (Chronic) Chronic back pain (Chronic) Bilateral cataracts (Chronic) Paroxysmal atrial fibrillation (Chronic) Diastolic heart failure (Chronic) Atrial fibrillation (Chronic) Right heart failure with reduced right ventricular function (Chronic) STACEY (obstructive sleep apnea) (Chronic) ADD (attention deficit disorder) Angina at rest Asthma Atrial fibrillation Breast cancer Chest pain, atypical Chronic pain Chronic rhinitis Cirrhosis of liver Compression fracture of spine Decreased visual acuity Depression Diastolic heart failure GI (gastrointestinal bleed) Gastric bypass status for obesity History of paroxysmal supraventricular tachycardia Hx of deep venous thrombosis Hyperparathyroidism , secondary, non-renal Hypertension IBS (irritable bowel syndrome) Insomnia Morbid obesity STACEY (obstructive sleep apnea) Osteoarthritis Osteopenia Oxygen dependent PUD (peptic ulcer disease) Pulmonary HTN Superficial thrombophlebitis Tricuspid regurgitation History of biliary T-tube placement (Resolved 09/01/18) Breast, Mastectomy EGD - MAC Gastric Bypass Social History caregiver/support person: No household members: none housing: apartment marital status: single lives independently: Yes number of children: 2 number of grandchildren: 1 jail: No current occupational status: disabled Smoking/Tobacco Use Status: Former Tobacco Use Results Last Vital Signs Temp 37.2 C 09/27/18 09:30 Pulse 97 H 09/27/18 09:30 Resp 19 09/27/18 09:30 BP 114/62 09/27/18 09:30 Pulse Ox 97 09/27/18 09:30 Labs : 09/27/18 06:30 09/27/18 06:30 Laboratory Results - last 24 hr 09/27/18 09/27/18 09/27/18 06:30 06:30 06:30 WBC 4.58 RBC 2.91 L Hgb 9.7 L Hct 32.5 L MCV 111.7 H MCH 33.3 H MCHC 29.8 L RDW 14.0 Plt Count 143 MPV 10.6 Immature Gran % 0.4 Neutrophils % 62.9 Lymphocytes % 11.8 Monocytes % 8.7 Eosinophils % 15.3 Basophils % 0.9 Absolute Neutrophils 2.88 Absolute Lymphocytes 0.54 L Absolute Monocytes 0.40 Absolute Eosinophils 0.70 Absolute Basophils 0.04 ESR 56 H PT 9.8 INR 1.0 Sodium 140 Potassium 4.2 Chloride 106 Carbon Dioxide 29.1 Anion Gap 4.9 BUN 5 L Creatinine 0.52 L Estimated GFR/1.73 m2 >= 60.00 Glucose 76 Calcium 7.8 L Magnesium 2.1 Total Bilirubin 0.5 Conjugated Bilirubin 0.29 H AST 29 ALT 28 Alkaline Phosphatase 319 H C-Reactive Protein 1.50 H Total Protein 4.8 L Albumin 1.7 L
--- NOTE | 2018-09-27 16:37 | SCONE_ITS ---
Date of service: 09/27/18 Time of Service: 16:35 Assessment and Plan (1) Fever and chills: Current visit: Yes Status: Acute 62-year-old woman with hepatobiliary drain in place. She been treated here prior for sepsis transferred to an outside facility for ascending cholangitis was treated with hepatobiliary tube. She now presents with blood from the hepatobiliary tube and more recently fevers and chills. Concern is for recurrence of ascending cholangitis. Surgically we have few if no options to provide her as we have no interventional radiology available here at [facility]. In the open common bile duct exploration could be performed but this would be at considerable morbidity and mortality for her given her multiple comorbidities , and this is even if she would let us perform the procedure as she is currently refusing most things including transfer to an outside facility. She is currently a DNI DNR. Though there is question as to her mental competence in determining this given her mental health history. The simple answer may be to remove the embedded biliary tube as this may be the cause of her infection, but without any way to replace the tube other than general surgery; she would be better served at a facility that had interventional radiology and other less invasive means to treat her health issues. History of Present Illness Chief Complaint: Hemobilia Narrative: I have been asked to see Mrs. Vieyra for her bloody drainage from her hepatobiliary tube. With her history of a sending cholangitis and now with subjective fevers again. Consults Consult date: 09/26/18 Requesting physician: Francheska Charles Review of Systems Review of Systems All systems reviewed & are unremarkable except as noted in HPI and below PFSH Morbid obesity with BMI of 45.0-49.9, adult (Chronic) Depression (Chronic) History of DVD (Chronic) DJD (degenerative joint disease) (Chronic) History of PSVT (paroxysmal supraventricular tachycardia) (Chronic) Chronic back pain (Chronic) Bilateral cataracts (Chronic) Paroxysmal atrial fibrillation (Chronic) Diastolic heart failure (Chronic) Atrial fibrillation (Chronic) Right heart failure with reduced right ventricular function (Chronic) STACEY (obstructive sleep apnea) (Chronic) ADD (attention deficit disorder) Angina at rest Asthma Atrial fibrillation Breast cancer Chest pain, atypical Chronic pain Chronic rhinitis Cirrhosis of liver Compression fracture of spine Decreased visual acuity Depression Diastolic heart failure GI (gastrointestinal bleed) Gastric bypass status for obesity History of paroxysmal supraventricular tachycardia Hx of deep venous thrombosis Hyperparathyroidism , secondary, non-renal Hypertension IBS (irritable bowel syndrome) Insomnia Morbid obesity STACEY (obstructive sleep apnea) Osteoarthritis Osteopenia Oxygen dependent PUD (peptic ulcer disease) Pulmonary HTN Superficial thrombophlebitis Tricuspid regurgitation History of biliary T-tube placement (Resolved 09/01/18) Breast, Mastectomy EGD - MAC Gastric Bypass Social History caregiver/support person: No household members: none housing: apartment marital status: single lives independently: Yes number of children: 2 number of grandchildren: 1 penitentiary: No current occupational status: disabled Smoking/Tobacco Use Status: Former Tobacco Use Results Last Vital Signs Temp 37.2 C 09/27/18 09:30 Pulse 97 H 09/27/18 09:30 Resp 19 09/27/18 09:30 BP 114/62 09/27/18 09:30 Pulse Ox 97 09/27/18 09:30 Labs : 09/27/18 06:30 09/27/18 06:30 Laboratory Results - last 24 hr 09/27/18 09/27/18 09/27/18 06:30 06:30 06:30 WBC 4.58 RBC 2.91 L Hgb 9.7 L Hct 32.5 L MCV 111.7 H MCH 33.3 H MCHC 29.8 L RDW 14.0 Plt Count 143 MPV 10.6 Immature Gran % 0.4 Neutrophils % 62.9 Lymphocytes % 11.8 Monocytes % 8.7 Eosinophils % 15.3 Basophils % 0.9 Absolute Neutrophils 2.88 Absolute Lymphocytes 0.54 L Absolute Monocytes 0.40 Absolute Eosinophils 0.70 Absolute Basophils 0.04 ESR 56 H PT 9.8 INR 1.0 Sodium 140 Potassium 4.2 Chloride 106 Carbon Dioxide 29.1 Anion Gap 4.9 BUN 5 L Creatinine 0.52 L Estimated GFR/1.73 m2 >= 60.00 Glucose 76 Calcium 7.8 L Magnesium 2.1 Total Bilirubin 0.5 Conjugated Bilirubin 0.29 H AST 29 ALT 28 Alkaline Phosphatase 319 H C-Reactive Protein 1.50 H Total Protein 4.8 L Albumin 1.7 L
[2018-09-27] MEDS: Albuterol/Ipratropium 3 ML UPD VIAL UPD (16:39)
--- NOTE | 2018-09-27 16:56 | W.PM.PROGNOT ---
Date of Service Date of service: 09/27/18 Time of Service: 13:00 Assessment and Plan (1) Sepsis: Current visit: Yes Status: Acute Due to recurrent cholangitis with obstruction of biliary drain due to blood clots and possible dislodgement. Obtaining a KUB. Arranging a shuttle to [facility] for IR interrogation of the drain tomorrow. Continue vancomycin, meropenem, flagyl. (2) Hypotension: Current visit: Yes Status: Acute Continue MIVF. Patient previously refused pressors and insisted on continuing to take her beta blockers. (3) Hematobilia: Current visit: Yes Status: Acute Read discussion above (4) Paroxysmal atrial fibrillation: Current visit: Yes Status: Chronic Continue metoprolol. Presently appears to be in NSR. (5) Right heart failure with reduced right ventricular function: Current visit: Yes Status: Chronic Latest echo with moderate pulmonary hypertension, and her tricuspid regurgitation is mild. She does appear to have moderately dilated RV and reduced RV systolic function. Tolerating IV fluid. Monitor volume/respiratory status. (6) Depression: Current visit: No Status: Chronic I question psychotic features, though she is somewhat clearer today, and less obviously paranoid. May benefit from a psychiatry consult on this admission. (7) STACEY (obstructive sleep apnea): Current visit: Yes Status: Chronic Continue CPAP therapy. (8) Urinary tract infection: Current visit: Yes Status: Acute Unclear if patient had a true UTI or colonization. E. coli present on cx from 08/2018 has been treated. Gao cath replaced; repeat urine C&S with jak albicans 10,000-50,000 CFU. Not a true UTI. (9) DVT prophylaxis: Current visit: Yes Status: Acute Lovenox on hold in anticipation of procedure. (10) Hypomagnesemia: Current visit: Yes Status: Acute Repleted. Continue to monitor. (11) Discharge planning issues: Current visit: Yes Status: Acute The latest update is that the patient is DNR, DNI, not comfort care, does not want pressors, But now in agreement with transfer to [facility]. Subjective Interval history since last seen: The patient complained of abdominal and leg pain. She denied dizziness, chest pain, shortness of breath, nausea. She is now in agreement with going to [facility] if needed. Her biliary drain continues to have a very poor output. I discussed the case with Dr Lynne of GI and Dr Robledo of IR at [facility]. There are no beds at [facility] currently, though per GI ideally this patient would be transferred to [facility] for inpatient care. Both agree that the biliary drain needs to be interrogated and possibly replaced, so at a minimum a shuttle to have this IR evaluation could be done tomorrow. We were asked to obtain a KUB and to make the patient NPO after midnight for the procedure. Exam Narrative Exam Narrative: General: Middle Aged female, laying in bed, in the dark, whispering, appears paranoid HEENT: EOMI, MMM Heart: RRR, tachycardic Lungs: Diminished breath sounds B GI: abdomen soft; tender in RUQ - drain without output Extremities 2+ B foot and ankle edema Objective Objective Clinical Data: Abnormal lab results 09/27/18 09/27/18 Range/Units 06:30 06:30 RBC 2.91 L (4.00-5.20) m/cumm Hgb 9.7 L (12.0-15.5) g/dL Hct 32.5 L (36.0-46.0) % MCV 111.7 H (80-95) fL MCH 33.3 H (27.0-33.0) pg MCHC 29.8 L (32.0-36.0) g/dL Absolute Lymphocytes 0.54 L (1.2-3.4) k/cumm ESR 56 H (0-30) MM/HR BUN 5 L (7-18) mg/dL Creatinine 0.52 L (0.55-1.02) mg/dL Calcium 7.8 L (8.5-10.1) mg/dL Conjugated Bilirubin 0.29 H (0.00-0.20) mg/dL Alkaline Phosphatase 319 H (46-116) U/L C-Reactive Protein 1.50 H (0.0-0.3) mg/dL Total Protein 4.8 L (6.4-8.2) g/dL Albumin 1.7 L (3.4-5.0) g/dL Vital Signs Temperature 37.2 C 09/27/18 09:30 Temperature Source Tympanic 09/27/18 09:30 Pulse 97 H 09/27/18 09:30 Pulse Rhythm Regular 09/27/18 16:34 Pulse 127 H 09/22/18 10:00 Respiratory Rate 19 09/27/18 09:30 Respiratory Effort Non-Labored 09/27/18 16:34 Respiratory Depth Normal 09/27/18 16:34 Respiratory Pattern Normal 09/27/18 16:34 Blood Pressure 114/62 09/27/18 09:30 Blood Pressure Mean 61 09/22/18 10:00 Blood Pressure Position Supine 09/21/18 18:30 Pulse Oximetry 97 09/27/18 09:30 Oxygen Delivery Method Room Air 09/27/18 09:30 Oxygen Flow Rate 0 09/27/18 09:30 Pain Level 4 09/27/18 13:33 Comment 09/25/18 00:26 Intake & Output 09/26/18 09/27/18 09/27/18 23:59 11:59 23:59 Intake Total 2900 / 2900 2890 / 2890 557.5 / 557.5 Output Total 1425 / 1425 2125 / 2125 Balance 1475 / 1475 765 / 765 530.5 / 530.5 Weight 121.1 kg Intake: IV 2650 / 2650 2650 / 2650 317.5 / 317.5 Oral 250 / 250 240 / 240 240 / 240 Output: Drainage Right Biliary Drainage Bag Urine 1425 / 1425 2125 / 2125 Other: Urine Color Straw Yellow Urine Appearance Clear Clear Clear Stool Size Large Large Stool Characteristics Soft Soft [facility] Laboratory Results WBC 4.58 k/cumm (4.4-10.8) 09/27/18 06:30 RBC 2.91 m/cumm (4.00-5.20) L 09/27/18 06:30 Hgb 9.7 g/dL (12.0-15.5) L 09/27/18 06:30 Hct 32.5 % (36.0-46.0) L 09/27/18 06:30 MCV 111.7 fL (80-95) H 09/27/18 06:30 MCH 33.3 pg (27.0-33.0) H 09/27/18 06:30 MCHC 29.8 g/dL (32.0-36.0) L 09/27/18 06:30 RDW 14.0 % (11.7-14.6) 09/27/18 06:30 Plt Count 143 x1000/uL (130-400) 09/27/18 06:30 MPV 10.6 fL (8.0-11.0) 09/27/18 06:30 Immature Gran % 0.4 09/27/18 06:30 Neutrophils % 62.9 09/27/18 06:30 Lymphocytes % 11.8 09/27/18 06:30 Monocytes % 8.7 09/27/18 06:30 Eosinophils % 15.3 09/27/18 06:30 Basophils % 0.9 09/27/18 06:30 Absolute Neutrophils 2.88 k/cumm (1.2-6.7) 09/27/18 06:30 Absolute Lymphocytes 0.54 k/cumm (1.2-3.4) L 09/27/18 06:30 Absolute Monocytes 0.40 k/cumm (0.11-0.7) 09/27/18 06:30 Absolute Eosinophils 0.70 k/cumm (0.0-0.7) 09/27/18 06:30 Absolute Basophils 0.04 k/cumm (0.0-0.2) 09/27/18 06:30 Differential Comment Rbc morph reviewed 09/26/18 07:20 RBC Morphology See below 09/26/18 07:20 Polychromasia Present 09/26/18 07:20 Basophilic Stippling Present 09/26/18 07:20 Macrocytosis 3+ 09/26/18 07:20 ESR 56 MM/HR (0-30) H 09/27/18 06:30 PT 9.8 sec (9.3-10.8) 09/27/18 06:30 INR 1.0 (1.0-3.5) 09/27/18 06:30 Sodium 140 mmol/L (136-145) 09/27/18 06:30 Potassium 4.2 mmol/L (3.5-5.1) 09/27/18 06:30 Chloride 106 mmol/L (98-107) 09/27/18 06:30 Carbon Dioxide 29.1 mmol/L (21.0-32.0) 09/27/18 06:30 Anion Gap 4.9 mmol/L (3-11) 09/27/18 06:30 BUN 5 mg/dL (7-18) L 09/27/18 06:30 Creatinine 0.52 mg/dL (0.55-1.02) L 09/27/18 06:30 Estimated GFR/1.73 m2 >= 60.00 (mL/min/1.73m2) 09/27/18 06:30 Glucose 76 mg/dL (70-100) 09/27/18 06:30 Lactate 1.0 mmol/L (0.6-1.4) 09/22/18 07:02 Calcium 7.8 mg/dL (8.5-10.1) L 09/27/18 06:30 Magnesium 2.1 mg/dL (1.8-2.4) 09/27/18 06:30 Total Bilirubin 0.5 mg/dL (0.2-1.0) 09/27/18 06:30 Conjugated Bilirubin 0.29 mg/dL (0.00-0.20) H 09/27/18 06:30 AST 29 U/L (15-37) 09/27/18 06:30 ALT 28 U/L (12-78) 09/27/18 06:30 Alkaline Phosphatase 319 U/L (46-116) H 09/27/18 06:30 Troponin I < 0.02 ng/mL (0.00-0.06) 09/22/18 06:45 C-Reactive Protein 1.50 mg/dL (0.0-0.3) H 09/27/18 06:30 Total Protein 4.8 g/dL (6.4-8.2) L 09/27/18 06:30 Albumin 1.7 g/dL (3.4-5.0) L 09/27/18 06:30 Urine Color Yellow (Yellow) 09/25/18 14:20 Urine Clarity Cloudy 09/25/18 14:20 Urine pH 6.0 (5-8) 09/25/18 14:20 Ur Specific [place] >= 1.030 (1.005-1.025) H 09/25/18 14:20 Urine Protein 100 mg/dL (Negative) H 09/25/18 14:20 Urine Ketones Trace mg/dL (Negative) H 09/25/18 14:20 Urine Blood Trace-intact (Negative) H 09/25/18 14:20 Urine Nitrite Negative (Negative) 09/25/18 14:20 Urine Bilirubin Negative (Negative) 09/25/18 14:20 Urine Urobilinogen 0.2 EU/dL (Up TO 0.2) 09/25/18 14:20 Ur Leukocyte Esterase Small (Negative) H 09/25/18 14:20 Urine RBC Not Applicable 09/25/18 14:20 Urine WBC >50 HPF (0-5) 09/25/18 14:20 Ur Epithelial Cells Not Applicable 09/25/18 14:20 Urine Crystals Not Applicable 09/25/18 14:20 Urine Bacteria Many HPF (Negative) 09/25/18 14:20 Urine Casts Negative LPF (Negative) 09/21/18 16:00 Urine Mucus Not Applicable 09/25/18 14:20 Urine Other Moderate yeast (Negative) 09/25/18 14:20 Ur Culture Indicated? Yes 09/25/18 14:20 Urine Glucose Negative mg/dL (Negative) 09/25/18 14:20 Vancomycin Trough 26.6 ug/mL (10.0-20.0) H* 09/26/18 09:20
--- NOTE | 2018-09-27 17:01 | PGE_ITS ---
Date of Service Date of service: 09/27/18 Time of Service: 13:00 Assessment and Plan (1) Sepsis: Current visit: Yes Status: Acute Due to recurrent cholangitis with obstruction of biliary drain due to blood clots and possible dislodgement. Obtaining a KUB. Arranging a shuttle to [facility] for IR interrogation of the drain tomorrow. Continue vancomycin, meropenem, flagyl. (2) Hypotension: Current visit: Yes Status: Acute Continue MIVF. Patient previously refused pressors and insisted on continuing to take her beta blockers. (3) Hematobilia: Current visit: Yes Status: Acute Read discussion above (4) Paroxysmal atrial fibrillation: Current visit: Yes Status: Chronic Continue metoprolol. Presently appears to be in NSR. (5) Right heart failure with reduced right ventricular function: Current visit: Yes Status: Chronic Latest echo with moderate pulmonary hypertension, and her tricuspid regurgitation is mild. She does appear to have moderately dilated RV and reduced RV systolic function. Tolerating IV fluid. Monitor volume/respiratory status. (6) Depression: Current visit: No Status: Chronic I question psychotic features, though she is somewhat clearer today, and less obviously paranoid. May benefit from a psychiatry consult on this admission. (7) STACEY (obstructive sleep apnea): Current visit: Yes Status: Chronic Continue CPAP therapy. (8) Urinary tract infection: Current visit: Yes Status: Acute Unclear if patient had a true UTI or colonization. E. coli present on cx from 08/2018 has been treated. Gao cath replaced; repeat urine C&S with jak albicans 10,000-50,000 CFU. Not a true UTI. (9) DVT prophylaxis: Current visit: Yes Status: Acute Lovenox on hold in anticipation of procedure. (10) Hypomagnesemia: Current visit: Yes Status: Acute Repleted. Continue to monitor. (11) Discharge planning issues: Current visit: Yes Status: Acute The latest update is that the patient is DNR, DNI, not comfort care, does not want pressors, But now in agreement with transfer to [facility]. Subjective Interval history since last seen: The patient complained of abdominal and leg pain. She denied dizziness, chest pain, shortness of breath, nausea. She is now in agreement with going to [facility] if needed. Her biliary drain continues to have a very poor output. I discussed the case with Dr Lynne of GI and Dr Robledo of IR at [facility]. There are no beds at [facility] currently, though per GI ideally this patient would be transferred to [facility] for inpatient care. Both agree that the biliary drain needs to be interrogated and possibly replaced, so at a minimum a shuttle to have this IR evaluation could be done tomorrow. We were asked to obtain a KUB and to make the patient NPO after midnight for the procedure. Exam Narrative Exam Narrative: General: Middle Aged female, laying in bed, in the dark, whispering, appears paranoid HEENT: EOMI, MMM Heart: RRR, tachycardic Lungs: Diminished breath sounds B GI: abdomen soft; tender in RUQ - drain without output Extremities 2+ B foot and ankle edema Objective Objective Clinical Data: Abnormal lab results 09/27/18 09/27/18 Range/Units 06:30 06:30 RBC 2.91 L (4.00-5.20) m/cumm Hgb 9.7 L (12.0-15.5) g/dL Hct 32.5 L (36.0-46.0) % MCV 111.7 H (80-95) fL MCH 33.3 H (27.0-33.0) pg MCHC 29.8 L (32.0-36.0) g/dL Absolute Lymphocytes 0.54 L (1.2-3.4) k/cumm ESR 56 H (0-30) MM/HR BUN 5 L (7-18) mg/dL Creatinine 0.52 L (0.55-1.02) mg/dL Calcium 7.8 L (8.5-10.1) mg/dL Conjugated Bilirubin 0.29 H (0.00-0.20) mg/dL Alkaline Phosphatase 319 H (46-116) U/L C-Reactive Protein 1.50 H (0.0-0.3) mg/dL Total Protein 4.8 L (6.4-8.2) g/dL Albumin 1.7 L (3.4-5.0) g/dL Vital Signs Temperature 37.2 C 09/27/18 09:30 Temperature Source Tympanic 09/27/18 09:30 Pulse 97 H 09/27/18 09:30 Pulse Rhythm Regular 09/27/18 16:34 Pulse 127 H 09/22/18 10:00 Respiratory Rate 19 09/27/18 09:30 Respiratory Effort Non-Labored 09/27/18 16:34 Respiratory Depth Normal 09/27/18 16:34 Respiratory Pattern Normal 09/27/18 16:34 Blood Pressure 114/62 09/27/18 09:30 Blood Pressure Mean 61 09/22/18 10:00 Blood Pressure Position Supine 09/21/18 18:30 Pulse Oximetry 97 09/27/18 09:30 Oxygen Delivery Method Room Air 09/27/18 09:30 Oxygen Flow Rate 0 09/27/18 09:30 Pain Level 4 09/27/18 13:33 Comment 09/25/18 00:26 Intake & Output 09/26/18 09/27/18 09/27/18 23:59 11:59 23:59 Intake Total 2900 / 2900 2890 / 2890 557.5 / 557.5 Output Total 1425 / 1425 2125 / 2125 Balance 1475 / 1475 765 / 765 530.5 / 530.5 Weight 121.1 kg Intake: IV 2650 / 2650 2650 / 2650 317.5 / 317.5 Oral 250 / 250 240 / 240 240 / 240 Output: Drainage Right Biliary Drainage Bag Urine 1425 / 1425 2125 / 2125 Other: Urine Color Straw Yellow Urine Appearance Clear Clear Clear Stool Size Large Large Stool Characteristics Soft Soft [facility] Laboratory Results WBC 4.58 k/cumm (4.4-10.8) 09/27/18 06:30 RBC 2.91 m/cumm (4.00-5.20) L 09/27/18 06:30 Hgb 9.7 g/dL (12.0-15.5) L 09/27/18 06:30 Hct 32.5 % (36.0-46.0) L 09/27/18 06:30 MCV 111.7 fL (80-95) H 09/27/18 06:30 MCH 33.3 pg (27.0-33.0) H 09/27/18 06:30 MCHC 29.8 g/dL (32.0-36.0) L 09/27/18 06:30 RDW 14.0 % (11.7-14.6) 09/27/18 06:30 Plt Count 143 x1000/uL (130-400) 09/27/18 06:30 MPV 10.6 fL (8.0-11.0) 09/27/18 06:30 Immature Gran % 0.4 09/27/18 06:30 Neutrophils % 62.9 09/27/18 06:30 Lymphocytes % 11.8 09/27/18 06:30 Monocytes % 8.7 09/27/18 06:30 Eosinophils % 15.3 09/27/18 06:30 Basophils % 0.9 09/27/18 06:30 Absolute Neutrophils 2.88 k/cumm (1.2-6.7) 09/27/18 06:30 Absolute Lymphocytes 0.54 k/cumm (1.2-3.4) L 09/27/18 06:30 Absolute Monocytes 0.40 k/cumm (0.11-0.7) 09/27/18 06:30 Absolute Eosinophils 0.70 k/cumm (0.0-0.7) 09/27/18 06:30 Absolute Basophils 0.04 k/cumm (0.0-0.2) 09/27/18 06:30 Differential Comment Rbc morph reviewed 09/26/18 07:20 RBC Morphology See below 09/26/18 07:20 Polychromasia Present 09/26/18 07:20 Basophilic Stippling Present 09/26/18 07:20 Macrocytosis 3+ 09/26/18 07:20 ESR 56 MM/HR (0-30) H 09/27/18 06:30 PT 9.8 sec (9.3-10.8) 09/27/18 06:30 INR 1.0 (1.0-3.5) 09/27/18 06:30 Sodium 140 mmol/L (136-145) 09/27/18 06:30 Potassium 4.2 mmol/L (3.5-5.1) 09/27/18 06:30 Chloride 106 mmol/L (98-107) 09/27/18 06:30 Carbon Dioxide 29.1 mmol/L (21.0-32.0) 09/27/18 06:30 Anion Gap 4.9 mmol/L (3-11) 09/27/18 06:30 BUN 5 mg/dL (7-18) L 09/27/18 06:30 Creatinine 0.52 mg/dL (0.55-1.02) L 09/27/18 06:30 Estimated GFR/1.73 m2 >= 60.00 (mL/min/1.73m2) 09/27/18 06:30 Glucose 76 mg/dL (70-100) 09/27/18 06:30 Lactate 1.0 mmol/L (0.6-1.4) 09/22/18 07:02 Calcium 7.8 mg/dL (8.5-10.1) L 09/27/18 06:30 Magnesium 2.1 mg/dL (1.8-2.4) 09/27/18 06:30 Total Bilirubin 0.5 mg/dL (0.2-1.0) 09/27/18 06:30 Conjugated Bilirubin 0.29 mg/dL (0.00-0.20) H 09/27/18 06:30 AST 29 U/L (15-37) 09/27/18 06:30 ALT 28 U/L (12-78) 09/27/18 06:30 Alkaline Phosphatase 319 U/L (46-116) H 09/27/18 06:30 Troponin I < 0.02 ng/mL (0.00-0.06) 09/22/18 06:45 C-Reactive Protein 1.50 mg/dL (0.0-0.3) H 09/27/18 06:30 Total Protein 4.8 g/dL (6.4-8.2) L 09/27/18 06:30 Albumin 1.7 g/dL (3.4-5.0) L 09/27/18 06:30 Urine Color Yellow (Yellow) 09/25/18 14:20 Urine Clarity Cloudy 09/25/18 14:20 Urine pH 6.0 (5-8) 09/25/18 14:20 Ur Specific [place] >= 1.030 (1.005-1.025) H 09/25/18 14:20 Urine Protein 100 mg/dL (Negative) H 09/25/18 14:20 Urine Ketones Trace mg/dL (Negative) H 09/25/18 14:20 Urine Blood Trace-intact (Negative) H 09/25/18 14:20 Urine Nitrite Negative (Negative) 09/25/18 14:20 Urine Bilirubin Negative (Negative) 09/25/18 14:20 Urine Urobilinogen 0.2 EU/dL (Up TO 0.2) 09/25/18 14:20 Ur Leukocyte Esterase Small (Negative) H 09/25/18 14:20 Urine RBC Not Applicable 09/25/18 14:20 Urine WBC >50 HPF (0-5) 09/25/18 14:20 Ur Epithelial Cells Not Applicable 09/25/18 14:20 Urine Crystals Not Applicable 09/25/18 14:20 Urine Bacteria Many HPF (Negative) 09/25/18 14:20 Urine Casts Negative LPF (Negative) 09/21/18 16:00 Urine Mucus Not Applicable 09/25/18 14:20 Urine Other Moderate yeast (Negative) 09/25/18 14:20 Ur Culture Indicated? Yes 09/25/18 14:20 Urine Glucose Negative mg/dL (Negative) 09/25/18 14:20 Vancomycin Trough 26.6 ug/mL (10.0-20.0) H* 09/26/18 09:20
--- NOTE | 2018-09-27 18:00 | DI.VRAD_ITS ---
EXAM: XR Abdomen, 1 View EXAM DATE/TIME: 09/27/2018 3:49 PM CLINICAL HISTORY: 62 years old, female; Device placement; Gi device; Other: Biliary drain; Patient HX: Verify placement of biliary drain TECHNIQUE: Frontal supine view of the abdomen/pelvis. COMPARISON: CR ABD FLAT UPRIGHT PA CHEST 03/08/2013 9:24 PM FINDINGS: There is a percutaneous drainage catheter superimposed over the right upper quadrant with pigtail loop in a position corresponding to the expected location of the descending duodenum. IMPRESSION: Percutaneous biliary drain as described. Dictated and Authenticated by: Boom James MD. Ordering:RANDY CRUZ MD
[2018-09-27] MEDS: Metoprolol 25 MG TAB PO (18:12)
[2018-09-27] MEDS: clonazePAM 1 MG TAB 2 MG PO (21:00)
[2018-09-27] MEDS: Zolpidem 10 MG TAB PO (21:00)
[2018-09-27] MEDS: Loperamide 2 MG CAP PO (21:39)
[2018-09-28] MEDS: MEROPENEM 1 GM in Normal Saline 100 ML IVPB ×5 (00:17→19:01)
[2018-09-28] MEDS: Normal Saline 1,000 ML 150 ML IV ×2 (00:17→13:33)
[2018-09-28] MEDS: VANCOMYCIN 1,250 MG in Normal Saline 250 ML 167 MG IVPB (01:56)
[2018-09-28] MEDS: oxyCODONE 5 mg/Acetaminophen 325 mg TAB 1 TAB PO ×3 (03:53→22:33)
[2018-09-28] MEDS: MetroNIDAZOLE 500 MG/100 ML BAG 100 MG IVPB ×3 (04:55→20:24)
[2018-09-28 06:34] VITALS: BP 92/58; PULSE 93; RESP 20; TEMP 37.1; O2SAT 93
[2018-09-28] MEDS: Metoprolol 25 MG TAB PO ×2 (06:43→19:01)
[2018-09-28 07:01] LABS: Abs Immature Grans 0.03 k/cumm (0.0-0.09); Absolute Basophil Count 0.05 k/cumm (0.0-0.2); Absolute Eosinophil Count 0.79 k/cumm (0.0-0.7); Absolute Lymphocyte Count 0.68 k/cumm (1.2-3.4); Absolute Monocyte Count 0.34 k/cumm (0.11-0.7); Absolute Neutrophil Count 3.31 k/cumm (1.2-6.7); Eosinophils % 15.2; HCT 33.4 % (36.0-46.0); HGB 9.9 g/dL (12.0-15.5); Immature Grans % 0.6; Lymphocytes % 13.1; Mean Corp. HGB Concentration 29.6 g/dL (32.0-36.0); Mean Corpuscular Hemoglobin 32.9 pg (27.0-33.0); Mean Platelet Volume 10.6 fL (8.0-11.0); Monocytes % 6.5; Neutrophils % 63.6; Platelet Count 143 x1000/uL (130-400); RBC 3.01 m/cumm (4.00-5.20); RBC Distribution Width 13.8 % (11.7-14.6)
[2018-09-28 07:22] LABS: ALT 23 U/L (12-78); AST 21 U/L (15-37); Albumin 1.7 g/dL (3.4-5.0); Alkaline Phosphatase 280 U/L (46-116); Anion Gap 2.2 mmol/L (3-11); BUN 4 mg/dL (7-18); Bilirubin, Direct 0.34 mg/dL (0.00-0.20); Bilirubin, Total 0.5 mg/dL (0.2-1.0); C-Reactive Protein 1.47 mg/dL (0.0-0.3); CO2 30.8 mmol/L (21.0-32.0); Calcium 8.3 mg/dL (8.5-10.1); Chloride 108 mmol/L (98-107); Glucose 78 mg/dL (70-100); Magnesium 1.8 mg/dL (1.8-2.4); Potassium 3.8 mmol/L (3.5-5.1); Sodium 141 mmol/L (136-145); Total Protein 4.9 g/dL (6.4-8.2)
[2018-09-28 07:35] VITALS: BP 86/56; PULSE 78; RESP 20; TEMP 37.4; O2SAT 97
--- NOTE | 2018-09-28 08:00 | HOME_ITS ---
Home Ventilator Equipment Home care company [employer] Reason: Obstructive Sleep Apnea Make: ResMed Model: System One Mask type: Face mask Mask size: Medium Mode: BiPAP Settings: 14/9 Oxygen bleed in (lpm): 1 Condition: Good Date last checked: 09/28/18 Year of last sleep study: Compliance Daily Comments:
[2018-09-28] MEDS: Budesonide/Formoterol 160/4.5 6 GM 60 PUFF INH IH ×2 (08:03→22:33)
[2018-09-28] MEDS: Pantoprazole 40 MG VIAL IVP (09:21)
[2018-09-28] MEDS: Normal Saline 1,000 ML 1000 ML IV (09:21)
[2018-09-28] MEDS: Normal Saline Flush 10 ML SYR IVP ×3 (09:22→22:33)
[2018-09-28] MEDS: Albuterol/Ipratropium 3 ML UPD VIAL IH ×2 (11:42→22:33)
[2018-09-28 13:29] LABS: Vancomycin, Trough 21.3 ug/mL (10.0-20.0)
--- NOTE | 2018-09-28 14:08 | PGE_ITS ---
Date of Service Date of service: 09/28/18 Time of Service: 14:05 Assessment and Plan (1) Sepsis: Current visit: Yes Status: Acute Due to recurrent cholangitis with obstruction of biliary drain due to blood clots and possible dislodgement. IR interrogation of biliary drain at [facility] today. Continue vancomycin, meropenem, flagyl. Await culture of biliary drainage. (2) Hypotension: Current visit: Yes Status: Acute Continue MIVF. Asymptomatic, but does respond to fluids. Ultimately, this likely has to do with her hypoalbuminemic state and intravascular hypovolemia, so any effect IV hydration has is short lived. Patient previously refused pressors and insisted on continuing to take her beta blockers. (3) Hematobilia: Current visit: Yes Status: Acute Biliary drain is to be interrogated today (4) Paroxysmal atrial fibrillation: Current visit: Yes Status: Chronic Continue metoprolol. Presently appears to be in NSR. (5) Right heart failure with reduced right ventricular function: Current visit: Yes Status: Chronic Latest echo with moderate pulmonary hypertension, and her tricuspid regurgitation is mild. She does appear to have moderately dilated RV and reduced RV systolic function. Tolerating IV fluid. Monitor volume/respiratory status. (6) Depression: Current visit: No Status: Chronic Stable. (7) STACEY (obstructive sleep apnea): Current visit: Yes Status: Chronic Continue CPAP therapy. (8) Urinary tract infection: Current visit: Yes Status: Acute Unclear if patient had a true UTI or colonization. E. coli present on cx from 08/2018 has been treated. Gao cath replaced; repeat urine C&S with jak albicans 10,000-50,000 CFU. Not a true UTI. (9) DVT prophylaxis: Current visit: Yes Status: Acute Lovenox on hold in anticipation of procedure. (10) Hypomagnesemia: Current visit: Yes Status: Acute Continue to monitor. (11) Discharge planning issues: Current visit: Yes Status: Acute DNR, DNI, not comfort care, does not want pressors, But now in agreement with transfer to [facility]. Subjective Interval history since last seen: Prema complains of leg pain, but it's ok right now. She is not short of breath. She says CPAP just makes her feel calm and she likes it - that's why she uses it during the day sometimes too, but she is not short of breath. She is anxious. She denies any dizziness, chest pain, shortness of breath, nausea, abdominal pain. Her biliary drain started to have output overnight - 827 cc recorded. She is going to have her drain interrogated/evaluated by IR at [facility] today at 3 pm (Dr James). It is thought at this time that this is going to be a shuttle with the plan for the patient to return back to [facility] after the procedure is completed. Exam Narrative Exam Narrative: General: Middle Aged female, laying in bed, in the dark HEENT: EOMI, MMM Heart: RRR, no m/r/g Lungs: Diminished breath sounds B GI: abdomen soft; tender in RUQ - drain without output Extremities 2+ B foot and ankle edema/lymphedema Objective Objective Clinical Data: Abnormal lab results 09/28/18 09/28/18 09/28/18 Range/Units 06:20 06:20 12:47 RBC 3.01 L (4.00-5.20) m/cumm Hgb 9.9 L (12.0-15.5) g/dL Hct 33.4 L (36.0-46.0) % MCV 111.0 H (80-95) fL MCHC 29.6 L (32.0-36.0) g/dL Absolute Lymphocytes 0.68 L (1.2-3.4) k/cumm Absolute Eosinophils 0.79 H (0.0-0.7) k/cumm Chloride 108 H (98-107) mmol/L Anion Gap 2.2 L (3-11) mmol/L BUN 4 L (7-18) mg/dL Creatinine 0.40 L (0.55-1.02) mg/dL Calcium 8.3 L (8.5-10.1) mg/dL Conjugated Bilirubin 0.34 H (0.00-0.20) mg/dL Alkaline Phosphatase 280 H (46-116) U/L C-Reactive Protein 1.47 H (0.0-0.3) mg/dL Total Protein 4.9 L (6.4-8.2) g/dL Albumin 1.7 L (3.4-5.0) g/dL Vancomycin Trough 21.3 H* (10.0-20.0) ug/mL Vital Signs Temperature 37.4 C 09/28/18 07:35 Temperature Source Tympanic 09/28/18 07:35 Pulse 78 09/28/18 07:35 Pulse Rhythm Regular 09/28/18 08:10 Pulse 127 H 09/22/18 10:00 Respiratory Rate 20 09/28/18 07:35 Respiratory Effort Non-Labored 09/28/18 08:10 Respiratory Depth Normal 09/28/18 08:10 Respiratory Pattern Normal 09/28/18 08:10 Blood Pressure 86/56 L 09/28/18 07:35 Blood Pressure Mean 61 09/22/18 10:00 Blood Pressure Position Supine 09/21/18 18:30 Pulse Oximetry 97 09/28/18 07:35 Oxygen Delivery Method Cpap 09/28/18 07:35 Oxygen Flow Rate 0 09/28/18 07:35 Pain Level 6 09/28/18 03:53 Comment 09/25/18 00:26 Intake & Output 09/27/18 09/28/18 09/28/18 23:59 11:59 23:59 Intake Total 2220.0 / 2220.0 2400.0 / 2400.0 200 / 200 Output Total 877 / 877 3150 / 3150 550 / 550 Balance 1343.0 / 1343.0 -750.0 / -750.0 -350 / -350 Weight 126.4 kg Intake: IV 1740.0 / 1740.0 2400.0 / 2400.0 200 / 200 Oral 480 / 480 Output: Drainage 227 / 227 950 / 950 100 / 100 Right Biliary Drainage Bag 227 / 227 950 / 950 100 / 100 Urine 650 / 650 2200 / 2200 450 / 450 Other: Urine Color Pale Yellow Yellow Yellow Urine Appearance Clear Clear Clear Stool Size Large Moderate Smear Stool Characteristics Soft Soft Soft Brown Liquid Liquid Brown Brown Laboratory Results WBC 5.20 k/cumm (4.4-10.8) 09/28/18 06:20 RBC 3.01 m/cumm (4.00-5.20) L 09/28/18 06:20 Hgb 9.9 g/dL (12.0-15.5) L 09/28/18 06:20 Hct 33.4 % (36.0-46.0) L 09/28/18 06:20 MCV 111.0 fL (80-95) H 09/28/18 06:20 MCH 32.9 pg (27.0-33.0) 09/28/18 06:20 MCHC 29.6 g/dL (32.0-36.0) L 09/28/18 06:20 RDW 13.8 % (11.7-14.6) 09/28/18 06:20 Plt Count 143 x1000/uL (130-400) 09/28/18 06:20 MPV 10.6 fL (8.0-11.0) 09/28/18 06:20 Immature Gran % 0.6 09/28/18 06:20 Neutrophils % 63.6 09/28/18 06:20 Lymphocytes % 13.1 09/28/18 06:20 Monocytes % 6.5 09/28/18 06:20 Eosinophils % 15.2 09/28/18 06:20 Basophils % 1.0 09/28/18 06:20 Absolute Neutrophils 3.31 k/cumm (1.2-6.7) 09/28/18 06:20 Absolute Lymphocytes 0.68 k/cumm (1.2-3.4) L 09/28/18 06:20 Absolute Monocytes 0.34 k/cumm (0.11-0.7) 09/28/18 06:20 Absolute Eosinophils 0.79 k/cumm (0.0-0.7) H 09/28/18 06:20 Absolute Basophils 0.05 k/cumm (0.0-0.2) 09/28/18 06:20 Differential Comment Rbc morph reviewed 09/26/18 07:20 RBC Morphology See below 09/26/18 07:20 Polychromasia Present 09/26/18 07:20 Basophilic Stippling Present 09/26/18 07:20 Macrocytosis 3+ 09/26/18 07:20 ESR 56 MM/HR (0-30) H 09/27/18 06:30 PT 9.8 sec (9.3-10.8) 09/27/18 06:30 INR 1.0 (1.0-3.5) 09/27/18 06:30 Sodium 141 mmol/L (136-145) 09/28/18 06:20 Potassium 3.8 mmol/L (3.5-5.1) 09/28/18 06:20 Chloride 108 mmol/L (98-107) H 09/28/18 06:20 Carbon Dioxide 30.8 mmol/L (21.0-32.0) 09/28/18 06:20 Anion Gap 2.2 mmol/L (3-11) L 09/28/18 06:20 BUN 4 mg/dL (7-18) L 09/28/18 06:20 Creatinine 0.40 mg/dL (0.55-1.02) L 09/28/18 06:20 Estimated GFR/1.73 m2 >= 60.00 (mL/min/1.73m2) 09/28/18 06:20 Glucose 78 mg/dL (70-100) 09/28/18 06:20 Lactate 1.0 mmol/L (0.6-1.4) 09/22/18 07:02 Calcium 8.3 mg/dL (8.5-10.1) L 09/28/18 06:20 Magnesium 1.8 mg/dL (1.8-2.4) 09/28/18 06:20 Total Bilirubin 0.5 mg/dL (0.2-1.0) 09/28/18 06:20 Conjugated Bilirubin 0.34 mg/dL (0.00-0.20) H 09/28/18 06:20 AST 21 U/L (15-37) 09/28/18 06:20 ALT 23 U/L (12-78) 09/28/18 06:20 Alkaline Phosphatase 280 U/L (46-116) H 09/28/18 06:20 Troponin I < 0.02 ng/mL (0.00-0.06) 09/22/18 06:45 C-Reactive Protein 1.47 mg/dL (0.0-0.3) H 09/28/18 06:20 Total Protein 4.9 g/dL (6.4-8.2) L 09/28/18 06:20 Albumin 1.7 g/dL (3.4-5.0) L 09/28/18 06:20 Cortisol 6 ug/dL 09/25/18 06:50 Urine Color Yellow (Yellow) 09/25/18 14:20 Urine Clarity Cloudy 09/25/18 14:20 Urine pH 6.0 (5-8) 09/25/18 14:20 Ur Specific [place] >= 1.030 (1.005-1.025) H 09/25/18 14:20 Urine Protein 100 mg/dL (Negative) H 09/25/18 14:20 Urine Ketones Trace mg/dL (Negative) H 09/25/18 14:20 Urine Blood Trace-intact (Negative) H 09/25/18 14:20 Urine Nitrite Negative (Negative) 09/25/18 14:20 Urine Bilirubin Negative (Negative) 09/25/18 14:20 Urine Urobilinogen 0.2 EU/dL (Up TO 0.2) 09/25/18 14:20 Ur Leukocyte Esterase Small (Negative) H 09/25/18 14:20 Urine RBC Not Applicable 09/25/18 14:20 Urine WBC >50 HPF (0-5) 09/25/18 14:20 Ur Epithelial Cells Not Applicable 09/25/18 14:20 Urine Crystals Not Applicable 09/25/18 14:20 Urine Bacteria Many HPF (Negative) 09/25/18 14:20 Urine Casts Negative LPF (Negative) 09/21/18 16:00 Urine Mucus Not Applicable 09/25/18 14:20 Urine Other Moderate yeast (Negative) 09/25/18 14:20 Ur Culture Indicated? Yes 09/25/18 14:20 Urine Glucose Negative mg/dL (Negative) 09/25/18 14:20 Vancomycin Trough 21.3 ug/mL (10.0-20.0) H* 09/28/18 12:47 Path Cons Comment See comment 09/26/18 07:20 XR abdomen: There is a percutaneous drainage catheter superimposed over the right upper quadrant with pigtail loop in a position corresponding to the expected location of the descending duodenum.
--- NOTE | 2018-09-28 14:28 | CMPROGNOTE_ITS ---
- If Service Date Differs Date of service: 09/28/18 Time of Service: 14:27 Care Management Progress Note S/O: CM met with Prema this morning, she was lying in bed, her room was darkened , and she had an eye mask covering her eyes. Prema states that she is waiting to hear from the physician in regards to going to [facility] today. MICHAEL met with Dr. Charles whom states that Prema will be going to [facility] for a down and back. Prema is aware of this and ambulance will transport her this afternoon. A: 62 y/o female admitted 09/21/18 for abnormal LFTs P: Prema continues to receive IV antibiotics at this time with a midline. Prema met with Dr. Dorado, Palliative, 09/22/18 to discuss goals of care/code status. CM to continue to provide support to Prema throughout her hospitalization and discuss DC plans with her. Prema continues to state that she is not interested in SNF placement, and wants to return home when she is ready.
--- NOTE | 2018-09-28 19:12 | NUR.NOTE ---
Pt returned to [facility] after coming from [facility]. Pt is conscious alert and rational. Complaining that she is having pain to the lower legs and she has had a very long day. Mucus membrane pink and moist. Chest clear when asculatated. Abdomen obese but soft and non tender, abdominal sounds heard when ascultated. IV access noted to the inner right arm with 22G branula. Same flush and patent. Bilary tube inplace and greenish secretions noted to the same. small dressing around tube same dry and intact. Urinary catheter in place with yellow clear urine. Bilateral non-pitting edema to the lower extremities.
--- NOTE | 2018-09-28 20:14 | NUR.NOTE ---
Nursing Note: pt requested all four rails up. Arianna WAGNER and BLANCHE Guzman notified.
[2018-09-28] MEDS: Glucosamine 500 MG CAP PO (20:23)
[2018-09-28] MEDS: Calcium 600mg/Vit D 200U TAB 2 TAB PO (20:23)
[2018-09-28] MEDS: Cyclobenzaprine 10 MG TAB PO (20:23)
[2018-09-28] MEDS: Ascorbic Acid 500 MG TAB PO (20:23)
[2018-09-28] MEDS: VANCOMYCIN 1,000 MG in Normal Saline 250 ML 166.667 MG IVPB (20:24)
[2018-09-28] MEDS: Dicyclomine 10 MG CAP PO (20:24)
[2018-09-28] MEDS: Loperamide 2 MG CAP PO (22:32)
[2018-09-28] MEDS: clonazePAM 1 MG TAB 2 MG PO (22:32)
[2018-09-28] MEDS: Zolpidem 10 MG TAB PO (22:33)
[2018-09-29] VITALS (7 sets, daily range): BP systolic 86–95; BP diastolic 44–65; PULSE 79–90; RESP 8–20; TEMP 36.3–37.2; O2SAT 93–97
[2018-09-29] MEDS: MEROPENEM 1 GM in Normal Saline 100 ML IVPB ×6 (00:15→21:39)
[2018-09-29] MEDS: Normal Saline 1,000 ML 150 ML IV ×2 (03:39→17:55)
[2018-09-29] MEDS: MetroNIDAZOLE 500 MG/100 ML BAG 100 MG IVPB ×3 (05:20→21:40)
[2018-09-29] MEDS: Metoprolol 25 MG TAB PO ×2 (05:35→17:44)
[2018-09-29] MEDS: oxyCODONE 5 mg/Acetaminophen 325 mg TAB 1 TAB PO ×5 (05:48→19:51)
[2018-09-29] MEDS: VANCOMYCIN 1,000 MG in Normal Saline 250 ML 167 MG IVPB (06:53)
[2018-09-29] MEDS: Loperamide 2 MG CAP PO (07:51)
[2018-09-29] MEDS: Albuterol/Ipratropium 3 ML UPD VIAL IH ×2 (08:41→19:50)
[2018-09-29] MEDS: Budesonide/Formoterol 160/4.5 6 GM 60 PUFF INH IH ×2 (08:42→19:50)
[2018-09-29] MEDS: Anastrozole 1 MG TAB PO (09:01)
[2018-09-29] MEDS: Cyanocobalamin 100 MCG TABLET PO (09:01)
[2018-09-29] MEDS: Ferrous Sulfate 325 MG TAB PO (09:01)
[2018-09-29] MEDS: Calcium 600mg/Vit D 200U TAB 2 TAB PO ×2 (09:01→19:51)
[2018-09-29] MEDS: Cyclobenzaprine 10 MG TAB PO ×2 (09:01→19:51)
[2018-09-29] MEDS: Ascorbic Acid 500 MG TAB PO ×2 (09:01→19:51)
[2018-09-29] MEDS: Dicyclomine 10 MG CAP PO ×2 (09:01→19:51)
[2018-09-29] MEDS: Sertraline 50 MG TAB 100 MG PO (09:02)
[2018-09-29] MEDS: Glucosamine 500 MG CAP PO ×2 (09:02→19:50)
[2018-09-29] MEDS: Pantoprazole 40 MG VIAL IVP (09:03)
[2018-09-29] MEDS: Normal Saline Flush 10 ML SYR IVP (09:03)
[2018-09-29] MEDS: Methylphenidate 10 MG TAB PO ×2 (09:22→14:20)
--- NOTE | 2018-09-29 10:41 | PDOC.CMPRO ---
Care Management Progress Note S/O: Prema went to [facility] for a down and back appointment yesterday. CM spoke with Prema's CM Jude Munoz at the [facility] to inform of discharge plan and needs. 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 CM informed current plan is for Prema to continue to be treated acutely medically and when ready to discharge home to the community to resume current support services. RNCC Mandie provided current case review information central to Prema struggling to accept treatment recommendations-Prema will likely require re-placement of midline for ongoing IV ABX. A: 62 y/o female admitted 09/21/18 for abnormal LFTs P: Prema will return home when ready per MD. She will resume all community based supports and follow up with her PCP, Palliative Care and her plan of care as prescribed.
--- NOTE | 2018-09-29 10:51 | CMPROGNOTE_ITS ---
Care Management Progress Note S/O: Prema went [place] [facility] [place] down and back appointment yesterday. CM spoke with Prema's CM Jude Munoz at the [facility]sell[facility] to inform of discharge plan and needs. 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 CM informed current plan is for Prema to continue to be treated acutely medically and when ready to discharge home to the community to resume current support services. RNCC Mandie provided current case review information central to Prema struggling to accept treatment recommendations-Prema will likely require re-placement of midline for ongoing IV ABX. A: 62 y/o female admitted 09/21/18 for abnormal LFTs P: Prema will return home when ready per MD. She will resume all community based supports and follow up with her PCP, Palliative Care and her plan of care as prescribed.
[2018-09-29 11:10] LABS: Abs Immature Grans 0.02 k/cumm (0.0-0.09); Absolute Basophil Count 0.03 k/cumm (0.0-0.2); Absolute Monocyte Count 0.26 k/cumm (0.11-0.7); Absolute Neutrophil Count 3.92 k/cumm (1.2-6.7); Basophils % 0.5; Eosinophils % 15.7; HCT 32.7 % (36.0-46.0); HGB 9.8 g/dL (12.0-15.5); Immature Grans % 0.3; Lymphocytes % 10.5; Mean Corpuscular Hemoglobin 33.3 pg (27.0-33.0); Mean Corpuscular Volume 111.2 fL (80-95); Mean Platelet Volume 10.2 fL (8.0-11.0); Monocytes % 4.5; Neutrophils % 68.5; Platelet Count 154 x1000/uL (130-400); RBC 2.94 m/cumm (4.00-5.20); RBC Distribution Width 13.7 % (11.7-14.6); White Blood Cell Count 5.73 k/cumm (4.4-10.8)
[2018-09-29] MEDS: ALBUMIN HUMAN 25 GM/100 ML BAG IV ×2 (11:20→13:28)
[2018-09-29 11:22] LABS: ALT 19 U/L (12-78); AST 17 U/L (15-37); Albumin 1.6 g/dL (3.4-5.0); Alkaline Phosphatase 230 U/L (46-116); Anion Gap 4.8 mmol/L (3-11); BUN 5 mg/dL (7-18); Bilirubin, Total 0.4 mg/dL (0.2-1.0); CO2 29.2 mmol/L (21.0-32.0); CREATININE 0.63 mg/dL (0.55-1.02); Calcium 8.1 mg/dL (8.5-10.1); Chloride 108 mmol/L (98-107); Glucose 113 mg/dL (70-100); Magnesium 1.4 mg/dL (1.8-2.4); Potassium 3.4 mmol/L (3.5-5.1); Sodium 142 mmol/L (136-145); Total Protein 4.8 g/dL (6.4-8.2)
--- NOTE | 2018-09-29 16:06 | W.PM.PROGNOT ---
Date of Service Date of service: 09/29/18 Time of Service: 16:06 Assessment and Plan (1) Sepsis: Current visit: Yes Status: Acute Due to recurrent cholangitis with obstruction of biliary drain due to blood clots/dislodgement. S/p interrogation of drain[place] [facility] [place]. Fluid cultures are growing E. Faecium and jak albicans. Contacting ID to re-evaluate choice of antibiotics/antifungal agent. (2) Hypotension: Current visit: Yes Status: Acute Continue MIVF. I have ordered 50 mg of albumin. Asymptomatic, but does respond to fluids. Patient previously refused pressors and insisted on continuing to take her beta blockers. (3) Hematobilia: Current visit: Yes Status: Acute Resolved. (4) Paroxysmal atrial fibrillation: Current visit: Yes Status: Chronic Continue metoprolol. Presently appears to be in NSR. (5) Right heart failure with reduced right ventricular function: Current visit: Yes Status: Chronic Stable, asymptomatic. Latest echo with moderate pulmonary hypertension, and her tricuspid regurgitation is mild. She does appear to have moderately dilated RV and reduced RV systolic function. Tolerating IV fluid. Monitor volume/respiratory status. (6) Depression: Current visit: No Status: Chronic Stable. (7) STACEY (obstructive sleep apnea): Current visit: Yes Status: Chronic Continue CPAP therapy. (8) Urinary tract infection: Current visit: Yes Status: Acute Unclear if patient had a true UTI or colonization. E. coli present on cx from 08/2018 has been treated. Gao cath replaced; repeat urine C&S with jak albicans 10,000-50,000 CFU. Not a true UTI. (9) DVT prophylaxis: Current visit: Yes Status: Acute Resume lovenox (10) Hypomagnesemia: Current visit: Yes Status: Acute Replete (11) Discharge planning issues: Current visit: Yes Status: Acute DNR, DNI, not comfort care, does not want pressors Subjective Interval history since last seen: Prema is s/p interrogation of her biliary drain/cholangiogram yesterday. The drain is functioning. Her pain is ok. There has been no blood in the drain since. She denies any dizziness, chest pain, shortness of breath, nausea, vomiting. She has been having diarrhea. Exam Narrative Exam Narrative: General: Middle Aged female, looks better today, lights are on in the room, more ineractive/alert HEENT: EOMI, MMM Heart: RRR, no m/r/g Lungs: Diminished breath sounds B GI: abdomen soft; tender in RUQ - drain with billious output. Extremities 2+ B foot and ankle edema/lymphedema Objective Objective Clinical Data: Abnormal lab results 09/29/18 09/29/18 Range/Units 11:00 11:00 RBC 2.94 L (4.00-5.20) m/cumm Hgb 9.8 L (12.0-15.5) g/dL Hct 32.7 L (36.0-46.0) % MCV 111.2 H (80-95) fL MCH 33.3 H (27.0-33.0) pg MCHC 30.0 L (32.0-36.0) g/dL Absolute Lymphocytes 0.60 L (1.2-3.4) k/cumm Absolute Eosinophils 0.90 H (0.0-0.7) k/cumm Potassium 3.4 L (3.5-5.1) mmol/L Chloride 108 H (98-107) mmol/L BUN 5 L (7-18) mg/dL Glucose 113 H (70-100) mg/dL Calcium 8.1 L (8.5-10.1) mg/dL Magnesium 1.4 L (1.8-2.4) mg/dL Conjugated Bilirubin 0.30 H (0.00-0.20) mg/dL Alkaline Phosphatase 230 H (46-116) U/L Total Protein 4.8 L (6.4-8.2) g/dL Albumin 1.6 L (3.4-5.0) g/dL Vital Signs Temperature 37.2 C 09/29/18 07:30 Temperature Source Tympanic 09/29/18 07:30 Pulse 84 09/29/18 07:30 Pulse Rhythm Regular 09/29/18 15:50 Pulse 127 H 09/22/18 10:00 Respiratory Rate 19 09/29/18 07:30 Respiratory Effort Non-Labored 09/29/18 15:50 Respiratory Depth Normal 09/29/18 15:50 Respiratory Pattern Normal 09/29/18 15:50 Blood Pressure 92/55 L 09/29/18 07:30 Blood Pressure Mean 61 09/22/18 10:00 Blood Pressure Position Supine 09/21/18 18:30 Pulse Oximetry 96 09/29/18 07:35 Oxygen Delivery Method Bi-pap 09/29/18 07:35 Oxygen Flow Rate 1 09/29/18 07:35 Fraction of Inspired Oxygen (FIO2) 24 09/29/18 07:35 Pain Level 6 09/29/18 13:06 Comment 09/25/18 00:26 Intake & Output 09/28/18 09/29/18 09/29/18 23:59 11:59 23:59 Intake Total 670 / 670 2481.667 / 2481.667 793.333 / 793.333 Output Total 2550 / 2550 3300 / 3300 150 / 150 Balance -1880 / -1880 -818.333 / -818.333 643.333 / 643.333 Weight 128.2 kg Intake: IV 670 / 670 1761.667 / 1761.667 293.333 / 293.333 Oral 720 / 720 500 / 500 Output: Drainage 200 / 200 950 / 950 150 / 150 Right Biliary Drainage Bag 200 / 200 950 / 950 150 / 150 Urine 2350 / 2350 2350 / 2350 Other: Urine Color Pale Yellow Yellow Urine Appearance Clear Clear Clear Urine Odor None Stool Size Copious Stool Characteristics Soft Formed Brown Laboratory Results WBC 5.73 k/cumm (4.4-10.8) 09/29/18 11:00 RBC 2.94 m/cumm (4.00-5.20) L 09/29/18 11:00 Hgb 9.8 g/dL (12.0-15.5) L 09/29/18 11:00 Hct 32.7 % (36.0-46.0) L 09/29/18 11:00 MCV 111.2 fL (80-95) H 09/29/18 11:00 MCH 33.3 pg (27.0-33.0) H 09/29/18 11:00 MCHC 30.0 g/dL (32.0-36.0) L 09/29/18 11:00 RDW 13.7 % (11.7-14.6) 09/29/18 11:00 Plt Count 154 x1000/uL (130-400) 09/29/18 11:00 MPV 10.2 fL (8.0-11.0) 09/29/18 11:00 Immature Gran % 0.3 09/29/18 11:00 Neutrophils % 68.5 09/29/18 11:00 Lymphocytes % 10.5 09/29/18 11:00 Monocytes % 4.5 09/29/18 11:00 Eosinophils % 15.7 09/29/18 11:00 Basophils % 0.5 09/29/18 11:00 Absolute Neutrophils 3.92 k/cumm (1.2-6.7) 09/29/18 11:00 Absolute Lymphocytes 0.60 k/cumm (1.2-3.4) L 09/29/18 11:00 Absolute Monocytes 0.26 k/cumm (0.11-0.7) 09/29/18 11:00 Absolute Eosinophils 0.90 k/cumm (0.0-0.7) H 09/29/18 11:00 Absolute Basophils 0.03 k/cumm (0.0-0.2) 09/29/18 11:00 Differential Comment Rbc morph reviewed 09/26/18 07:20 RBC Morphology See below 09/26/18 07:20 Polychromasia Present 09/26/18 07:20 Basophilic Stippling Present 09/26/18 07:20 Macrocytosis 3+ 09/26/18 07:20 ESR 56 MM/HR (0-30) H 09/27/18 06:30 PT 9.8 sec (9.3-10.8) 09/27/18 06:30 INR 1.0 (1.0-3.5) 09/27/18 06:30 Sodium 142 mmol/L (136-145) 09/29/18 11:00 Potassium 3.4 mmol/L (3.5-5.1) L 09/29/18 11:00 Chloride 108 mmol/L (98-107) H 09/29/18 11:00 Carbon Dioxide 29.2 mmol/L (21.0-32.0) 09/29/18 11:00 Anion Gap 4.8 mmol/L (3-11) 09/29/18 11:00 BUN 5 mg/dL (7-18) L 09/29/18 11:00 Creatinine 0.63 mg/dL (0.55-1.02) 09/29/18 11:00 Estimated GFR/1.73 m2 >= 60.00 (mL/min/1.73m2) 09/29/18 11:00 Glucose 113 mg/dL (70-100) H 09/29/18 11:00 Lactate 1.0 mmol/L (0.6-1.4) 09/22/18 07:02 Calcium 8.1 mg/dL (8.5-10.1) L 09/29/18 11:00 Magnesium 1.4 mg/dL (1.8-2.4) L 09/29/18 11:00 Total Bilirubin 0.4 mg/dL (0.2-1.0) 09/29/18 11:00 Conjugated Bilirubin 0.30 mg/dL (0.00-0.20) H 09/29/18 11:00 AST 17 U/L (15-37) 09/29/18 11:00 ALT 19 U/L (12-78) 09/29/18 11:00 Alkaline Phosphatase 230 U/L (46-116) H 09/29/18 11:00 Troponin I < 0.02 ng/mL (0.00-0.06) 09/22/18 06:45 C-Reactive Protein 1.47 mg/dL (0.0-0.3) H 09/28/18 06:20 Total Protein 4.8 g/dL (6.4-8.2) L 09/29/18 11:00 Albumin 1.6 g/dL (3.4-5.0) L 09/29/18 11:00 Cortisol 6 ug/dL 09/25/18 06:50 Urine Color Yellow (Yellow) 09/25/18 14:20 Urine Clarity Cloudy 09/25/18 14:20 Urine pH 6.0 (5-8) 09/25/18 14:20 Ur Specific [place] >= 1.030 (1.005-1.025) H 09/25/18 14:20 Urine Protein 100 mg/dL (Negative) H 09/25/18 14:20 Urine Ketones Trace mg/dL (Negative) H 09/25/18 14:20 Urine Blood Trace-intact (Negative) H 09/25/18 14:20 Urine Nitrite Negative (Negative) 09/25/18 14:20 Urine Bilirubin Negative (Negative) 09/25/18 14:20 Urine Urobilinogen 0.2 EU/dL (Up TO 0.2) 09/25/18 14:20 Ur Leukocyte Esterase Small (Negative) H 09/25/18 14:20 Urine RBC Not Applicable 09/25/18 14:20 Urine WBC >50 HPF (0-5) 09/25/18 14:20 Ur Epithelial Cells Not Applicable 09/25/18 14:20 Urine Crystals Not Applicable 09/25/18 14:20 Urine Bacteria Many HPF (Negative) 09/25/18 14:20 Urine Casts Negative LPF (Negative) 09/21/18 16:00 Urine Mucus Not Applicable 09/25/18 14:20 Urine Other Moderate yeast (Negative) 09/25/18 14:20 Ur Culture Indicated? Yes 09/25/18 14:20 Urine Glucose Negative mg/dL (Negative) 09/25/18 14:20 Vancomycin Trough 21.3 ug/mL (10.0-20.0) H* 09/28/18 12:47 Path Cons Comment See comment 09/26/18 07:20
[2018-09-29] MEDS: MAGNESIUM SULFATE 4 GM/100 ML BAG IVPB (16:10)
[2018-09-29] MEDS: Potassium Chloride 20 MEQ TABCR 40 MEQ PO (16:10)
[2018-09-29] MEDS: VANCOMYCIN 1,000 MG in Normal Saline 250 ML 166.667 MG IVPB (17:44)
[2018-09-29] MEDS: clonazePAM 1 MG TAB 2 MG PO (21:38)
[2018-09-29] MEDS: Zolpidem 10 MG TAB PO (21:38)
[2018-09-29] MEDS: Acetaminophen 500 MG TAB 1000 MG PO (23:53)
[2018-09-30] MEDS: MEROPENEM 1 GM in Normal Saline 100 ML IVPB ×6 (01:39→22:32)
[2018-09-30] MEDS: Normal Saline 1,000 ML 150 ML IV ×2 (01:40→12:32)
[2018-09-30] MEDS: MetroNIDAZOLE 500 MG/100 ML BAG 100 MG IVPB ×3 (05:47→21:24)
[2018-09-30] MEDS: Metoprolol 25 MG TAB PO ×2 (06:56→18:14)
[2018-09-30] MEDS: VANCOMYCIN 1,000 MG in Normal Saline 250 ML 166.667 MG IVPB (06:56)
[2018-09-30 07:15] LABS: Abs Immature Grans 0.02 k/cumm (0.0-0.09); Absolute Basophil Count 0.06 k/cumm (0.0-0.2); Absolute Lymphocyte Count 0.73 k/cumm (1.2-3.4); Absolute Monocyte Count 0.31 k/cumm (0.11-0.7); Absolute Neutrophil Count 3.84 k/cumm (1.2-6.7); Eosinophils % 16.8; HCT 32.7 % (36.0-46.0); HGB 9.6 g/dL (12.0-15.5); Immature Grans % 0.3; Lymphocytes % 12.2; Mean Corp. HGB Concentration 29.4 g/dL (32.0-36.0); Mean Corpuscular Hemoglobin 32.4 pg (27.0-33.0); Mean Corpuscular Volume 110.5 fL (80-95); Mean Platelet Volume 10.5 fL (8.0-11.0); Monocytes % 5.2; Neutrophils % 64.5; Platelet Count 171 x1000/uL (130-400); RBC 2.96 m/cumm (4.00-5.20); RBC Distribution Width 14.1 % (11.7-14.6); White Blood Cell Count 5.96 k/cumm (4.4-10.8)
[2018-09-30 07:38] LABS: Basophilic Stippling Present; Diff Comment RBC Morph Reviewed; Hypochromasia 1+; Macrocytosis 2+; Polychromasia Present; Stomatocytes 2+
[2018-09-30 07:40] VITALS: BP 94/60; PULSE 67; RESP 19; TEMP 36.5; O2SAT 98
[2018-09-30 07:44] LABS: ALT 17 U/L (12-78); AST 17 U/L (15-37); Albumin 2.2 g/dL (3.4-5.0); Alkaline Phosphatase 191 U/L (46-116); Anion Gap 3.3 mmol/L (3-11); BUN 5 mg/dL (7-18); Bilirubin, Direct 0.27 mg/dL (0.00-0.20); Bilirubin, Total 0.6 mg/dL (0.2-1.0); CO2 31.7 mmol/L (21.0-32.0); CREATININE 0.57 mg/dL (0.55-1.02); Calcium 8.1 mg/dL (8.5-10.1); Chloride 108 mmol/L (98-107); Glucose 80 mg/dL (70-100); Magnesium 2.1 mg/dL (1.8-2.4); Potassium 3.9 mmol/L (3.5-5.1); Sodium 143 mmol/L (136-145); Total Protein 5.2 g/dL (6.4-8.2)
[2018-09-30] MEDS: Pantoprazole 40 MG VIAL IVP (08:49)
[2018-09-30] MEDS: Normal Saline Flush 10 ML SYR IVP (08:50)
[2018-09-30] MEDS: Ferrous Sulfate 325 MG TAB PO (08:51)
[2018-09-30] MEDS: Cyanocobalamin 100 MCG TABLET PO (08:51)
[2018-09-30] MEDS: Anastrozole 1 MG TAB PO (08:51)
[2018-09-30] MEDS: Sertraline 50 MG TAB 100 MG PO (08:51)
[2018-09-30] MEDS: Glucosamine 500 MG CAP PO ×2 (08:51→21:19)
[2018-09-30] MEDS: Dicyclomine 10 MG CAP PO ×2 (08:51→21:19)
[2018-09-30] MEDS: Enoxaparin 40 MG/0.4 ML SYR SC (08:51)
[2018-09-30] MEDS: Ascorbic Acid 500 MG TAB PO ×2 (08:51→21:19)
[2018-09-30] MEDS: Cyclobenzaprine 10 MG TAB PO ×2 (08:52→21:19)
[2018-09-30] MEDS: Calcium 600mg/Vit D 200U TAB 2 TAB PO ×2 (08:52→21:21)
[2018-09-30] MEDS: oxyCODONE 5 mg/Acetaminophen 325 mg TAB 1 TAB PO ×4 (08:52→21:21)
[2018-09-30] MEDS: Methylphenidate 10 MG TAB PO ×2 (09:21→15:17)
[2018-09-30 09:30] VITALS: O2SAT 96
[2018-09-30] MEDS: Albuterol/Ipratropium 3 ML UPD VIAL IH ×3 (09:30→21:26)
[2018-09-30] MEDS: Budesonide/Formoterol 160/4.5 6 GM 60 PUFF INH IH ×2 (12:33→21:18)
[2018-09-30] MEDS: methylPREDNISolone ACETATE 80 MG/ML VIAL IM (13:00)
[2018-09-30] MEDS: Lidocaine 1% Multi-Dose 50 ML VIAL IJ (13:00)
[2018-09-30] MEDS: Bupivacaine 0.5% Pres-Free 30 ML VIAL IJ (13:04)
--- NOTE | 2018-09-30 14:11 | PDOC.CMPRO ---
- If Service Date Differs Date of service: 09/30/18 Time of Service: 14:11 Care Management Progress Note S/O: Prema is resting in bed when this securities underwriter visits this morning. She discusses going to [facility] a couple days ago. Per morning meeting Prema's biliary tube is having better output at this time, she also continues to have a arndt in place. Prema continues to state that she needs to have her knees injected which was scheduled to be done with Dr. Marino on 10/01/18. Discussed DC plans and Prema continues to state that she will not go to a SNF and would only like to go home when ready. A: 62 y/o female admitted 09/21/18 for abnormal LFTs P: Prema will return home when ready per MD. She will resume all community based supports and follow up with her PCP, Palliative Care and her plan of care as prescribed.
--- NOTE | 2018-09-30 14:21 | CMPROGNOTE_ITS ---
- If Service Date Differs Date of service: 09/30/18 Time of Service: 14:11 Care Management Progress Note S/O: Prema is resting in bed when this television script writer visits this morning. She discusses going to [facility] a couple days ago. Per morning meeting Prema's biliary tube is having better output at this time, she also continues to have a arndt in place. Prema continues to state that she needs to have her knees injected which was scheduled to be done with Dr. Marino on 10/01/18. Discussed DC plans and Prema continues to state that she will not go to a SNF and would only like to go home when ready. A: 62 y/o female admitted 09/21/18 for abnormal LFTs P: Prema will return home when ready per MD. She will resume all community based supports and follow up with her PCP, Palliative Care and her plan of care as prescribed.
--- NOTE | 2018-09-30 17:39 | W.PM.PROGNOT ---
Date of Service Date of service: 09/30/18 Time of Service: 15:00 Assessment and Plan (1) Sepsis: Current visit: Yes Status: Acute Due to recurrent ascending cholangitis with obstruction of biliary drain due to blood clots/dislodgement. S/p interrogation of drain/cholangiogram at [facility] on 09/30/18, since then without issues with the fluid in the drain. Fluid cultures are growing E. Faecium and jak albicans. Continue current antibiotics (vanco, meropenem, flagyl). No indication for antifungals, per [facility] ID in their informal phone consult. (2) Hypotension: Current visit: Yes Status: Acute Continue MIVF. s/p IV albumin with some improvement. Asymptomatic. Patient previously refused pressors and insisted on continuing to take her beta blockers. (3) Hematobilia: Current visit: Yes Status: Resolved Resolved. (4) Paroxysmal atrial fibrillation: Current visit: Yes Status: Chronic Continue metoprolol. Presently appears to be in NSR. (5) Right heart failure with reduced right ventricular function: Current visit: Yes Status: Chronic Stable, asymptomatic. Latest echo with moderate pulmonary hypertension, and her tricuspid regurgitation is mild. She does appear to have moderately dilated RV and reduced RV systolic function. Tolerating IV fluid. Monitor volume/respiratory status. Continue CPAP during sleep (6) Depression: Current visit: No Status: Chronic Stable. (7) STACEY (obstructive sleep apnea): Current visit: Yes Status: Chronic Continue CPAP therapy. (8) Urinary tract infection: Current visit: Yes Status: Acute Unclear if patient had a true UTI or colonization. E. coli present on cx from 08/2018 has been treated. Gao cath replaced; repeat urine C&S with jak albicans 10,000-50,000 CFU. Not a true UTI. (9) DVT prophylaxis: Current visit: Yes Status: Acute Resume lovenox (10) Hypomagnesemia: Current visit: Yes Status: Acute Repleted - continue to monitor (11) Discharge planning issues: Current visit: Yes Status: Acute DNR, DNI, not comfort care, does not want pressors Will discuss with GI as far as length of antibiotic therapy in this patient who has now had recurrent bouts of colangitis. Subjective Interval history since last seen: Prema is asleep when I came into her room. I called her name a few times, but she appeared to not want to be bothered with her blanket on her face. She did not answer any of my questions. I spoke with Dr Solorio (ID at [facility]) re jak in biliary fluid - she, like myself, believes that this is evidence of colonization rather than true disease and does not feel that antifungal therapy is indicated. Exam Narrative Exam Narrative: General: Middle Aged female, asleep with blanket on top of her head HEENT: unable to examine - covered by a blanket Heart: RRR, no m/r/g Lungs: Diminished breath sounds B GI: abdomen soft; tender in RUQ - drain with billious output. Extremities 2+ B foot and ankle edema/lymphedema Objective Objective Clinical Data: Abnormal lab results 09/30/18 09/30/18 Range/Units 06:50 06:50 RBC 2.96 L (4.00-5.20) m/cumm Hgb 9.6 L (12.0-15.5) g/dL Hct 32.7 L (36.0-46.0) % MCV 110.5 H (80-95) fL MCHC 29.4 L (32.0-36.0) g/dL Absolute Lymphocytes 0.73 L (1.2-3.4) k/cumm Absolute Eosinophils 1.00 H (0.0-0.7) k/cumm Chloride 108 H (98-107) mmol/L BUN 5 L (7-18) mg/dL Calcium 8.1 L (8.5-10.1) mg/dL Conjugated Bilirubin 0.27 H (0.00-0.20) mg/dL Alkaline Phosphatase 191 H (46-116) U/L Total Protein 5.2 L (6.4-8.2) g/dL Albumin 2.2 L (3.4-5.0) g/dL Vital Signs Temperature 36.5 C 09/30/18 07:40 Temperature Source Tympanic 09/30/18 07:40 Pulse 67 09/30/18 07:40 Pulse Rhythm Regular 09/30/18 08:25 Pulse 127 H 09/22/18 10:00 Respiratory Rate 19 09/30/18 07:40 Respiratory Effort 09/30/18 08:25 Respiratory Depth Normal 09/30/18 08:25 Respiratory Pattern Normal 09/30/18 08:25 Blood Pressure 94/60 L 09/30/18 07:40 Blood Pressure Mean 61 09/22/18 10:00 Blood Pressure Position Supine 09/21/18 18:30 Pulse Oximetry 96 09/30/18 09:30 Oxygen Delivery Method Nasal Cannula 09/30/18 10:58 Oxygen Flow Rate 2 09/30/18 10:58 Fraction of Inspired Oxygen (FIO2) 24 09/29/18 07:35 Pain Level 8 09/30/18 16:22 Comment 09/25/18 00:26 Intake & Output 09/29/18 09/30/18 09/30/18 23:59 11:59 23:59 Intake Total 2078.333 / 2078.333 2110 / 2110 435 / 435 Output Total 2620 / 2620 2555 / 2555 200 / 200 Balance -541.667 / -541.667 -445 / -445 235 / 235 Weight 128.6 kg Intake: IV 1338.333 / 2302.164 7691 / 1500 435 / 435 Oral 740 / 740 610 / 610 Output: Drainage 720 / 720 805 / 805 200 / 200 Right Biliary Drainage Bag 720 / 720 805 / 805 200 / 200 Urine 1900 / 1900 1750 / 1750 Other: Urine Color Straw Yellow Urine Appearance Clear Clear Urine Odor Normal Stool Size Moderate Stool Characteristics Soft Brown Voiding Methods Indwelling Catheter Laboratory Results WBC 5.96 k/cumm (4.4-10.8) 09/30/18 06:50 RBC 2.96 m/cumm (4.00-5.20) L 09/30/18 06:50 Hgb 9.6 g/dL (12.0-15.5) L 09/30/18 06:50 Hct 32.7 % (36.0-46.0) L 09/30/18 06:50 MCV 110.5 fL (80-95) H 09/30/18 06:50 MCH 32.4 pg (27.0-33.0) 09/30/18 06:50 MCHC 29.4 g/dL (32.0-36.0) L 09/30/18 06:50 RDW 14.1 % (11.7-14.6) 09/30/18 06:50 Plt Count 171 x1000/uL (130-400) 09/30/18 06:50 MPV 10.5 fL (8.0-11.0) 09/30/18 06:50 Immature Gran % 0.3 09/30/18 06:50 Neutrophils % 64.5 09/30/18 06:50 Lymphocytes % 12.2 09/30/18 06:50 Monocytes % 5.2 09/30/18 06:50 Eosinophils % 16.8 09/30/18 06:50 Basophils % 1.0 09/30/18 06:50 Absolute Neutrophils 3.84 k/cumm (1.2-6.7) 09/30/18 06:50 Absolute Lymphocytes 0.73 k/cumm (1.2-3.4) L 09/30/18 06:50 Absolute Monocytes 0.31 k/cumm (0.11-0.7) 09/30/18 06:50 Absolute Eosinophils 1.00 k/cumm (0.0-0.7) H 09/30/18 06:50 Absolute Basophils 0.06 k/cumm (0.0-0.2) 09/30/18 06:50 Differential Comment Rbc morph reviewed 09/30/18 06:50 RBC Morphology See below 09/30/18 06:50 Polychromasia Present 09/30/18 06:50 Hypochromasia 1+ 09/30/18 06:50 Basophilic Stippling Present 09/30/18 06:50 Macrocytosis 2+ 09/30/18 06:50 Stomatocytes 2+ 09/30/18 06:50 ESR 56 MM/HR (0-30) H 09/27/18 06:30 PT 9.8 sec (9.3-10.8) 09/27/18 06:30 INR 1.0 (1.0-3.5) 09/27/18 06:30 Sodium 143 mmol/L (136-145) 09/30/18 06:50 Potassium 3.9 mmol/L (3.5-5.1) 09/30/18 06:50 Chloride 108 mmol/L (98-107) H 09/30/18 06:50 Carbon Dioxide 31.7 mmol/L (21.0-32.0) 09/30/18 06:50 Anion Gap 3.3 mmol/L (3-11) 09/30/18 06:50 BUN 5 mg/dL (7-18) L 09/30/18 06:50 Creatinine 0.57 mg/dL (0.55-1.02) 09/30/18 06:50 Estimated GFR/1.73 m2 >= 60.00 (mL/min/1.73m2) 09/30/18 06:50 Glucose 80 mg/dL (70-100) 09/30/18 06:50 Lactate 1.0 mmol/L (0.6-1.4) 09/22/18 07:02 Calcium 8.1 mg/dL (8.5-10.1) L 09/30/18 06:50 Magnesium 2.1 mg/dL (1.8-2.4) 09/30/18 06:50 Total Bilirubin 0.6 mg/dL (0.2-1.0) 09/30/18 06:50 Conjugated Bilirubin 0.27 mg/dL (0.00-0.20) H 09/30/18 06:50 AST 17 U/L (15-37) 09/30/18 06:50 ALT 17 U/L (12-78) 09/30/18 06:50 Alkaline Phosphatase 191 U/L (46-116) H 09/30/18 06:50 Troponin I < 0.02 ng/mL (0.00-0.06) 09/22/18 06:45 C-Reactive Protein 1.47 mg/dL (0.0-0.3) H 09/28/18 06:20 Total Protein 5.2 g/dL (6.4-8.2) L 09/30/18 06:50 Albumin 2.2 g/dL (3.4-5.0) L 09/30/18 06:50 Cortisol 6 ug/dL 09/25/18 06:50 Urine Color Yellow (Yellow) 09/25/18 14:20 Urine Clarity Cloudy 09/25/18 14:20 Urine pH 6.0 (5-8) 09/25/18 14:20 Ur Specific [place] >= 1.030 (1.005-1.025) H 09/25/18 14:20 Urine Protein 100 mg/dL (Negative) H 09/25/18 14:20 Urine Ketones Trace mg/dL (Negative) H 09/25/18 14:20 Urine Blood Trace-intact (Negative) H 09/25/18 14:20 Urine Nitrite Negative (Negative) 09/25/18 14:20 Urine Bilirubin Negative (Negative) 09/25/18 14:20 Urine Urobilinogen 0.2 EU/dL (Up TO 0.2) 09/25/18 14:20 Ur Leukocyte Esterase Small (Negative) H 09/25/18 14:20 Urine RBC Not Applicable 09/25/18 14:20 Urine WBC >50 HPF (0-5) 09/25/18 14:20 Ur Epithelial Cells Not Applicable 09/25/18 14:20 Urine Crystals Not Applicable 09/25/18 14:20 Urine Bacteria Many HPF (Negative) 09/25/18 14:20 Urine Casts Negative LPF (Negative) 09/21/18 16:00 Urine Mucus Not Applicable 09/25/18 14:20 Urine Other Moderate yeast (Negative) 09/25/18 14:20 Ur Culture Indicated? Yes 09/25/18 14:20 Urine Glucose Negative mg/dL (Negative) 09/25/18 14:20 Vancomycin Trough 21.3 ug/mL (10.0-20.0) H* 09/28/18 12:47 Path Cons Comment See comment 09/26/18 07:20
--- NOTE | 2018-09-30 17:45 | PGE_ITS ---
Date of Service Date of service: 09/30/18 Time of Service: 15:00 Assessment and Plan (1) Sepsis: Current visit: Yes Status: Acute Due to recurrent ascending cholangitis with obstruction of biliary drain due to blood clots/dislodgement. S/p interrogation of drain/cholangiogram at [facility] on 09/30/18, since then without issues with the fluid in the drain. Fluid cultures are growing E. Faecium and jak albicans. Continue current antibiotics (vanco, meropenem, flagyl). No indication for antifungals, per [facility] ID in their informal phone consult. (2) Hypotension: Current visit: Yes Status: Acute Continue MIVF. s/p IV albumin with some improvement. Asymptomatic. Patient previously refused pressors and insisted on continuing to take her beta blockers. (3) Hematobilia: Current visit: Yes Status: Resolved Resolved. (4) Paroxysmal atrial fibrillation: Current visit: Yes Status: Chronic Continue metoprolol. Presently appears to be in NSR. (5) Right heart failure with reduced right ventricular function: Current visit: Yes Status: Chronic Stable, asymptomatic. Latest echo with moderate pulmonary hypertension, and her tricuspid regurgitation is mild. She does appear to have moderately dilated RV and reduced RV systolic function. Tolerating IV fluid. Monitor volume /respiratory status. Continue CPAP during sleep (6) Depression: Current visit: No Status: Chronic Stable. (7) STACEY (obstructive sleep apnea): Current visit: Yes Status: Chronic Continue CPAP therapy. (8) Urinary tract infection: Current visit: Yes Status: Acute Unclear if patient had a true UTI or colonization. E. coli present on cx from 08/2018 has been treated. Gao cath replaced; repeat urine C&S with jak albicans 10,000-50,000 CFU. Not a true UTI. (9) DVT prophylaxis: Current visit: Yes Status: Acute Resume lovenox (10) Hypomagnesemia: Current visit: Yes Status: Acute Repleted - continue to monitor (11) Discharge planning issues: Current visit: Yes Status: Acute DNR, DNI, not comfort care, does not want pressors Will discuss with GI as far as length of antibiotic therapy in this patient who has now had recurrent bouts of colangitis. Subjective Interval history since last seen: Prema is asleep when I came into her room. I called her name a few times, but she appeared to not want to be bothered with her blanket on her face. She did not answer any of my questions. I spoke with Dr Solorio (ID at [facility]) re jak in biliary fluid - she, like myself, believes that this is evidence of colonization rather than true disease and does not feel that antifungal therapy is indicated. Exam Narrative Exam Narrative: General: Middle Aged female, asleep with blanket on top of her head HEENT: unable to examine - covered by a blanket Heart: RRR, no m/r/g Lungs: Diminished breath sounds B GI: abdomen soft; tender in RUQ - drain with billious output. Extremities 2+ B foot and ankle edema/lymphedema Objective Objective Clinical Data: Abnormal lab results 09/30/18 09/30/18 Range/Units 06:50 06:50 RBC 2.96 L (4.00-5.20) m/cumm Hgb 9.6 L (12.0-15.5) g/dL Hct 32.7 L (36.0-46.0) % MCV 110.5 H (80-95) fL MCHC 29.4 L (32.0-36.0) g/dL Absolute Lymphocytes 0.73 L (1.2-3.4) k/cumm Absolute Eosinophils 1.00 H (0.0-0.7) k/cumm Chloride 108 H (98-107) mmol/L BUN 5 L (7-18) mg/dL Calcium 8.1 L (8.5-10.1) mg/dL Conjugated Bilirubin 0.27 H (0.00-0.20) mg/dL Alkaline Phosphatase 191 H (46-116) U/L Total Protein 5.2 L (6.4-8.2) g/dL Albumin 2.2 L (3.4-5.0) g/dL Vital Signs Temperature 36.5 C 09/30/18 07:40 Temperature Source Tympanic 09/30/18 07:40 Pulse 67 09/30/18 07:40 Pulse Rhythm Regular 09/30/18 08:25 Pulse 127 H 09/22/18 10:00 Respiratory Rate 19 09/30/18 07:40 Respiratory Effort 09/30/18 08:25 Respiratory Depth Normal 09/30/18 08:25 Respiratory Pattern Normal 09/30/18 08:25 Blood Pressure 94/60 L 09/30/18 07:40 Blood Pressure Mean 61 09/22/18 10:00 Blood Pressure Position Supine 09/21/18 18:30 Pulse Oximetry 96 09/30/18 09:30 Oxygen Delivery Method Nasal Cannula 09/30/18 10:58 Oxygen Flow Rate 2 09/30/18 10:58 Fraction of Inspired Oxygen (FIO2) 24 09/29/18 07:35 Pain Level 8 09/30/18 16:22 Comment 09/25/18 00:26 Intake & Output 09/29/18 09/30/18 09/30/18 23:59 11:59 23:59 Intake Total 2078.333 / 2078.333 2110 / 2110 435 / 435 Output Total 2620 / 2620 2555 / 2555 200 / 200 Balance -541.667 / -541.667 -445 / -445 235 / 235 Weight 128.6 kg Intake: IV 1338.333 / 2191.014 3384 / 1500 435 / 435 Oral 740 / 740 610 / 610 Output: Drainage 720 / 720 805 / 805 200 / 200 Right Biliary Drainage Bag 720 / 720 805 / 805 200 / 200 Urine 1900 / 1900 1750 / 1750 Other: Urine Color Straw Yellow Urine Appearance Clear Clear Urine Odor Normal Stool Size Moderate Stool Characteristics Soft Brown Voiding Methods Indwelling Catheter Laboratory Results WBC 5.96 k/cumm (4.4-10.8) 09/30/18 06:50 RBC 2.96 m/cumm (4.00-5.20) L 09/30/18 06:50 Hgb 9.6 g/dL (12.0-15.5) L 09/30/18 06:50 Hct 32.7 % (36.0-46.0) L 09/30/18 06:50 MCV 110.5 fL (80-95) H 09/30/18 06:50 MCH 32.4 pg (27.0-33.0) 09/30/18 06:50 MCHC 29.4 g/dL (32.0-36.0) L 09/30/18 06:50 RDW 14.1 % (11.7-14.6) 09/30/18 06:50 Plt Count 171 x1000/uL (130-400) 09/30/18 06:50 MPV 10.5 fL (8.0-11.0) 09/30/18 06:50 Immature Gran % 0.3 09/30/18 06:50 Neutrophils % 64.5 09/30/18 06:50 Lymphocytes % 12.2 09/30/18 06:50 Monocytes % 5.2 09/30/18 06:50 Eosinophils % 16.8 09/30/18 06:50 Basophils % 1.0 09/30/18 06:50 Absolute Neutrophils 3.84 k/cumm (1.2-6.7) 09/30/18 06:50 Absolute Lymphocytes 0.73 k/cumm (1.2-3.4) L 09/30/18 06:50 Absolute Monocytes 0.31 k/cumm (0.11-0.7) 09/30/18 06:50 Absolute Eosinophils 1.00 k/cumm (0.0-0.7) H 09/30/18 06:50 Absolute Basophils 0.06 k/cumm (0.0-0.2) 09/30/18 06:50 Differential Comment Rbc morph reviewed 09/30/18 06:50 RBC Morphology See below 09/30/18 06:50 Polychromasia Present 09/30/18 06:50 Hypochromasia 1+ 09/30/18 06:50 Basophilic Stippling Present 09/30/18 06:50 Macrocytosis 2+ 09/30/18 06:50 Stomatocytes 2+ 09/30/18 06:50 ESR 56 MM/HR (0-30) H 09/27/18 06:30 PT 9.8 sec (9.3-10.8) 09/27/18 06:30 INR 1.0 (1.0-3.5) 09/27/18 06:30 Sodium 143 mmol/L (136-145) 09/30/18 06:50 Potassium 3.9 mmol/L (3.5-5.1) 09/30/18 06:50 Chloride 108 mmol/L (98-107) H 09/30/18 06:50 Carbon Dioxide 31.7 mmol/L (21.0-32.0) 09/30/18 06:50 Anion Gap 3.3 mmol/L (3-11) 09/30/18 06:50 BUN 5 mg/dL (7-18) L 09/30/18 06:50 Creatinine 0.57 mg/dL (0.55-1.02) 09/30/18 06:50 Estimated GFR/1.73 m2 >= 60.00 (mL/min/1.73m2) 09/30/18 06:50 Glucose 80 mg/dL (70-100) 09/30/18 06:50 Lactate 1.0 mmol/L (0.6-1.4) 09/22/18 07:02 Calcium 8.1 mg/dL (8.5-10.1) L 09/30/18 06:50 Magnesium 2.1 mg/dL (1.8-2.4) 09/30/18 06:50 Total Bilirubin 0.6 mg/dL (0.2-1.0) 09/30/18 06:50 Conjugated Bilirubin 0.27 mg/dL (0.00-0.20) H 09/30/18 06:50 AST 17 U/L (15-37) 09/30/18 06:50 ALT 17 U/L (12-78) 09/30/18 06:50 Alkaline Phosphatase 191 U/L (46-116) H 09/30/18 06:50 Troponin I < 0.02 ng/mL (0.00-0.06) 09/22/18 06:45 C-Reactive Protein 1.47 mg/dL (0.0-0.3) H 09/28/18 06:20 Total Protein 5.2 g/dL (6.4-8.2) L 09/30/18 06:50 Albumin 2.2 g/dL (3.4-5.0) L 09/30/18 06:50 Cortisol 6 ug/dL 09/25/18 06:50 Urine Color Yellow (Yellow) 09/25/18 14:20 Urine Clarity Cloudy 09/25/18 14:20 Urine pH 6.0 (5-8) 09/25/18 14:20 Ur Specific [place] >= 1.030 (1.005-1.025) H 09/25/18 14:20 Urine Protein 100 mg/dL (Negative) H 09/25/18 14:20 Urine Ketones Trace mg/dL (Negative) H 09/25/18 14:20 Urine Blood Trace-intact (Negative) H 09/25/18 14:20 Urine Nitrite Negative (Negative) 09/25/18 14:20 Urine Bilirubin Negative (Negative) 09/25/18 14:20 Urine Urobilinogen 0.2 EU/dL (Up TO 0.2) 09/25/18 14:20 Ur Leukocyte Esterase Small (Negative) H 09/25/18 14:20 Urine RBC Not Applicable 09/25/18 14:20 Urine WBC >50 HPF (0-5) 09/25/18 14:20 Ur Epithelial Cells Not Applicable 09/25/18 14:20 Urine Crystals Not Applicable 09/25/18 14:20 Urine Bacteria Many HPF (Negative) 09/25/18 14:20 Urine Casts Negative LPF (Negative) 09/21/18 16:00 Urine Mucus Not Applicable 09/25/18 14:20 Urine Other Moderate yeast (Negative) 09/25/18 14:20 Ur Culture Indicated? Yes 09/25/18 14:20 Urine Glucose Negative mg/dL (Negative) 09/25/18 14:20 Vancomycin Trough 21.3 ug/mL (10.0-20.0) H* 09/28/18 12:47 Path Cons Comment See comment 09/26/18 07:20
[2018-09-30 18:20] VITALS: BP 87/55; PULSE 100; RESP 18; TEMP 37.4; O2SAT 97
[2018-09-30 18:52] LABS: Vancomycin, Trough 18.1 ug/mL (10.0-20.0)
[2018-09-30] MEDS: VANCOMYCIN 1,000 MG in Normal Saline 250 ML 166.7 MG IVPB (19:18)
[2018-09-30] MEDS: clonazePAM 1 MG TAB 2 MG PO (21:19)
[2018-09-30] MEDS: Zolpidem 10 MG TAB PO (21:42)
[2018-10-01] MEDS: Normal Saline 1,000 ML 150 ML IV ×2 (00:34→09:58)
[2018-10-01] MEDS: MEROPENEM 1 GM in Normal Saline 100 ML IVPB ×6 (02:06→22:49)
[2018-10-01] MEDS: MetroNIDAZOLE 500 MG/100 ML BAG 100 MG IVPB ×3 (05:24→21:29)
[2018-10-01] MEDS: VANCOMYCIN 1,000 MG in Normal Saline 250 ML 166.7 MG IVPB (06:38)
[2018-10-01] MEDS: Metoprolol 25 MG TAB PO ×2 (06:39→19:32)
[2018-10-01 06:43] VITALS: BP 102/65
[2018-10-01] MEDS: oxyCODONE 5 mg/Acetaminophen 325 mg TAB 1 TAB PO ×5 (06:43→19:33)
[2018-10-01 07:31] LABS: ALT 31 U/L (12-78); AST 75 U/L (15-37); Alkaline Phosphatase 314 U/L (46-116); Anion Gap 3.6 mmol/L (3-11); BUN 4 mg/dL (7-18); Bilirubin, Direct 1.05 mg/dL (0.00-0.20); Bilirubin, Total 1.3 mg/dL (0.2-1.0); C-Reactive Protein 2.87 mg/dL (0.0-0.3); CO2 31.4 mmol/L (21.0-32.0); CREATININE 0.58 mg/dL (0.55-1.02); Calcium 8.1 mg/dL (8.5-10.1); Chloride 107 mmol/L (98-107); Glucose 86 mg/dL (70-100); Magnesium 1.7 mg/dL (1.8-2.4); Potassium 3.6 mmol/L (3.5-5.1); Sodium 142 mmol/L (136-145); Total Protein 5.1 g/dL (6.4-8.2)
[2018-10-01 07:32] LABS: Abs Immature Grans 0.02 k/cumm (0.0-0.09); Absolute Basophil Count 0.08 k/cumm (0.0-0.2); Absolute Eosinophil Count 1.34 k/cumm (0.0-0.7); Absolute Lymphocyte Count 0.56 k/cumm (1.2-3.4); Absolute Monocyte Count 0.26 k/cumm (0.11-0.7); Absolute Neutrophil Count 4.36 k/cumm (1.2-6.7); Basophils % 1.2; Eosinophils % 20.2; HGB 10.1 g/dL (12.0-15.5); Immature Grans % 0.3; Lymphocytes % 8.5; Mean Corp. HGB Concentration 29.7 g/dL (32.0-36.0); Mean Corpuscular Hemoglobin 32.8 pg (27.0-33.0); Mean Corpuscular Volume 110.4 fL (80-95); Mean Platelet Volume 10.6 fL (8.0-11.0); Monocytes % 3.9; Neutrophils % 65.9; Platelet Count 178 x1000/uL (130-400); RBC 3.08 m/cumm (4.00-5.20); RBC Distribution Width 13.9 % (11.7-14.6); White Blood Cell Count 6.62 k/cumm (4.4-10.8)
[2018-10-01 07:40] VITALS: BP 100/64; PULSE 76; RESP 17; TEMP 36.6; O2SAT 95
--- NOTE | 2018-10-01 09:13 | OT.INNT ---
Date of service: 10/01/18 Time of Service: 09:13 Occupational Therapy Notes 10/01/18 OT consult received and pts chart reviewed. OT went to see pt and pt was shaking her head. When OT asked pt about consult, pt pulled her blanket over head and refused to answer OT. OT will attempt again later this morning. Adriana Zaragoza, OTR\L
[2018-10-01] MEDS: Sertraline 50 MG TAB 100 MG PO (09:58)
[2018-10-01] MEDS: Glucosamine 500 MG CAP PO ×2 (10:02→19:31)
[2018-10-01] MEDS: Calcium 600mg/Vit D 200U TAB 2 TAB PO ×2 (10:03→19:31)
[2018-10-01] MEDS: Methylphenidate 10 MG TAB PO ×2 (10:03→15:01)
[2018-10-01] MEDS: Cyanocobalamin 100 MCG TABLET PO (10:04)
[2018-10-01] MEDS: Ferrous Sulfate 325 MG TAB PO (10:04)
[2018-10-01] MEDS: Ascorbic Acid 500 MG TAB PO ×2 (10:04→19:32)
[2018-10-01] MEDS: Anastrozole 1 MG TAB PO (10:04)
[2018-10-01] MEDS: Dicyclomine 10 MG CAP PO ×2 (10:06→19:32)
[2018-10-01] MEDS: Cyclobenzaprine 10 MG TAB PO ×2 (10:06→19:32)
[2018-10-01] MEDS: Enoxaparin 40 MG/0.4 ML SYR SC (10:06)
[2018-10-01] MEDS: Normal Saline Flush 10 ML SYR IVP ×3 (10:07→19:43)
[2018-10-01] MEDS: Pantoprazole 40 MG VIAL IVP (10:07)
--- NOTE | 2018-10-01 11:01 | OT.INIE ---
Occupational Therapy Notes Inpatient Occupational Therapy Evaluation Date: 10/01/18 Referring Doctor:Francheska Charles MD OT Orders: Eval and treat PATIENT PROFILE/ADMITTING DIAGNOSIS: Pt is a 62 year old female referred to [facility] on 09/21/18 for abnormal LFT's. Past Medical History: UTI, diastolic heart failure, atrial fibrilation, obstructive sleep apnea, hypotension, ascending cholanitis, morbid obesity, breast cancer, CAD, COPD, STACEY, PHTN, GERD. Current Functional Limitations: Decreased (B) UE AROM, decreased functional activity tolerance, decreased strength (B) UE, decreased (I) in ADLs/IADLs. Social History/Home Situation: Pt reports that she lives alone in an apartment with an aide that comes and helps her with dressing her LE and bathing routines. There is an elevator but pt does not report any stairs. Baseline functional (I) in ADL/IADL routine is that pt receives meal on wheels, has an aid that assists with dressing and bathing, but otherwise reports that she is (I) with UE dressing and eating. Equipment owned/DME: CPAP machine, Mobilized wheelchair, hospital bed which pt reports isn't working well. SUBJECTIVE: Pt was sitting in bed when OT arrived with blanket over head, CPAP machine on and eye covering on. With verbal prompts pt was awaken. With encouragement pt was agreeable to OT session and pt sat on the edge of the bed with PT. Pt was able to perform this (I) with vc. Pt reports that she is agreeable but will only sit on the edge of her bed. OBJECTIVE: General Observation: Gao, IV (R) UE, hepatobiliary drain. Mental Status: A&Ox3 Pain: c/o pain but not rated. ROM: RUE AROM ~160* L UE AROM~160* STRENGTH: RUE 4/5 throughout LUE 4/5 throughout FUNCTIONAL MOBILITY/ADLS: BATHING sitting on side of the bed, max (A) for set up Bathing UE (I) with washing face, (I) with washing (B) shoulders, underarms, and top of abdomen with minimal verbal cues and verbal prompts for pt to apply pressure to (B) UE to clean surface of forearms as pt was just dragging cloth over her arms. Bathing LE NT DRESSING Dressing UE Min (A) for [facility] gown with min vc to place arm into hole of gown. Dressing LE Max (A) heel pads which pt wanted on her feet in substitution for socks. BALANCE: Static sitting Good Dynamic Sitting Good Static Standing NT Dynamic Standing NT SPECIAL TESTS: Daily Activity Limitations Standardized Measure [facility] AM -PAC ?6 clicks? Daily Activity Inpatient Short Form: Raw score: 17 Standardized score: 37.26 CMS score: 50.11% CMS modifier: CK INFORMED CONSENT/EDUCATION: Pt instructed in purpose of OT Consult and plan of care. ASSESSMENT: Patient is a 62-year-old female referred to occupational therapy services with diagnosis of abnormal LFTs in setting of UTI, diastolic heart failure, atrial fibrilation, obstructive sleep apnea, hypotension, ascending cholanitis, morbid obesity, breast cancer, CAD, COPD, STACEY, PHTN, GERD. Impairments are contributing to the following functional limitations: Decreased (B) UE AROM, decreased functional activity tolerance, decreased strength (B) UE, decreased (I) in ADLs/IADLs. Pt requires verbal cues to perform ADLs. She reports that she has increased pain in her abdomen with sitting and functional motion. She also reports that she has difficulty with (R) shoulder limiting her (I) in ADLs. Pt is not always receptive to education and training provided to her and would benefit from OT consult for initiation of UE strengthing and ROM prescription, education and training in adaptive equipment for dressing routine. OT recommends that pt got to LTC when medically cleared per MD to gain (I) in ADL routine. OT does not feel that pt would be able to return home without care as pt has significant decrease in functional activity tolerance, decreased (I) in ADLs. AMPAC score 17, CMS score 50.11% Patient is assessed as a high [id number] complexity based on the following: History: See Above Examination: See Above Presentation: Evolving Decision Making: AMPAC score 17, CMS score 50.11% GOALS Goals x1 week in hospital setting 1. Dressing (I) with [facility] gown, Mod (I) with donning and doffing (B) LE socks with use of sock aid and integrated circuit design engineer. 3. Bathing sitting on side of the bed pt will be (I) with washing abdomen, and upper legs. 4. UE strength improve to 5/5 strength to increase (I) in ADL routine. 5. Pt will be (I) with (B) UE strengthening program. PLAN OF CARE/TREATMENT PLAN: 1x/day, 5 days/ week x 1week Initiate Occupational Therapy Services for bathing, dressing, grooming, toileting, eating, transfer training. DISCHARGE RECOMMENDATIONS LTC when medically cleared per MD. OT does not feel that pt will be able to return home unless she has increased care. TREATMENT TIME/MINUTES/CODES 30 min IE, Selfcarex1, (10:25) G Codes in the area of self- : washing oneself, toileting, dressing, eating and drinking, current status GO [id number] CK projected status GO [id number]. Discharge status GO [id number]. Based on evaluation AMPAC score of 17, CMS score 50.11%. Adriana Zaragoza OTR/L
--- NOTE | 2018-10-01 11:08 | PT.INIE ---
Date of service: 10/01/18 Time of Service: 11:08 PT Notes Date: 10/01/2018 Referring Doctor: Francheska Charles PT Orders: PT Consult: Eval/treat Precautions: Fall Precautions PATIENT PROFILE/ADMITTING DIAGNOSIS: Pt is a 61 yr old female admitted with hematobilia, urinary tract infection, hypotension PMHX: obesity, depression, chronic contractures bilateral knees, bilateral knee osteoarthritis, chronic pain with chronic use of nonsteroidal anti-inflammatories, asthma, obstructive sleep apnea with use of home CPAP, chronic obstructive pulmonary disease, congestive heart failure, atrial fibrillation, peptic ulcer disease, irritable bowel syndrome, renal insufficiency, thrombocytopenia, hypokalemia, chronic rhinitis, ovarian cystectomy 1988, gastric bypass surgery 1998, small bowel perforation resection, cholecystectomy, insomnia, chronic rhinitis, adult hyperactive disorder Social History/Home Situation: Lives alone in apartment, elevator to enter no stairs. Baseline mobility stand pivot transfers to electric wheelchair, primary mode of transportation is electric wheelchair in the house and in the community. Receives personal care attendent 3days/week. Receives meals on wheels. Equipment owned/DME: electric wheelchair, hospital bed patient states the head of the bed does not go up and down, handicap railings in bathroom SUBJECTIVE: Pt lying in bed, with curtains drawn and eye mask over her eyes blanket over her head. Awakens to verbal stimulus and opening of shade. Agreeable to P.T consult after encouragement. Patient states she is not going to walk today, states she is not going to try to stand until she gets injections into her knees, she reports orthopedics was here to see her but did not give her injections and states they will be back in a few days. Discussion with patient on how she transfers at home to electric wheelchair, patient states she does not use a front wheel walker and does not like to use one, she states she just stands and pulls on whatever is near her to shift over to her electric wheelchair. Discussion with patient regarding P.T goals to assist her in progressing to standing and being able to transfer to chair, patient unable to strategize with therapist at this time or discuss options for progressing to standing transfers, focusing only that she wants injections into her knees before she tries to stand. She is agreeable to sit on the edge of the bed this morning. OBJECTIVE: General Observation: IV R extremity, arndt catheter, 2 liters NC, hepatobiliary drain right abdomen patient secures with safety pins to gown with holding bag, CPAP and room for night use. Mental Status: A& O x3 Pain: c/o pain right shoulder and bilateral knees, this is chronic pain. Not rated, she is receiving pain medication. ROM: RLE AROM hip flexion 90, knee to 90 at edge of bed, ankle WNL LLE AROM hip flexion 90, knee to 90 at edge of bed , ankle WNL STRENGTH: RLE 2/5 hip flexion, 3/5 quad, 3/5 DF/PF LLE 2/5 hip flexion, 3/5 quad, 3/5 DF/PF BED MOBILITY/TRANSFERS: rolling: max A with use of bed pad Supine-sit: HOB 0degrees and railing, independent, patient was able to get legs off side of bed and use upper body to transition to sitting position with use of bed railing. Sat at edge of bed unsupported for 15 minutes before performing ADLs with MACHINE MAINTENANCE REPAIRER and OT assist Sit-stand: refused to attempt Bed-chair: refused to attempt Sit-supine: HOB flat, Cesar for LE's, patient unable to lift legs into bed, states she uses a leg marking machine tender at home GAIT: refused to attempt. Patient states she will not attempt standing or transfers to chair until she gets injections in her knees by orthopedics. BALANCE: Static sitting: normal Dynamic Sitting: normal Static Standing: NT Dynamic Standing: NT SPECIAL TESTS: Mobility Limitations Standardized Measure [facility] AM -PAC ?6 clicks? Basic Mobility Inpatient Short Form: raw score: 8 standardized score: 28.58 CMS score: 86.62 % CMS modifier: CM INFORMED CONSENT/EDUCATION: Pt instructed in purpose of PT Consult and plan of care and in agreement with plan. ASSESSMENT: : Pt is a 61 yr old female admitted with hematobilia, urinary tract infection, hypotension in setting of obesity, chronic pain, bilateral knee contractures and bilateral osteoarthritis of the knees, chronic obstructive pulmonary disease and asthma, congestive heart failure and wheelchair bound mobility. Patient presents with the following impairment level findings: Anxiety requiring direction to complete tasks and encouragement to participate in therapy interventions, requiring O2 nasal cannula, decreased upper and lower extremity strength limiting ability to move her own body with position changes, pain right shoulder limiting ability to use upper extremity with transfers, osteoarthritis and pain bilateral knees limiting standing duration tolerance and transfers to wheelchair, decreased strength with mobility requiring hospital bed for railings and head of bed elevated to get into and out of bed, non-ambulatory at baseline using electric wheelchair and performing only. Patient will benefit from skilled therapy intervention for progressive strengthening and functional mobility training, will initiate 1 time per day and progresses patient is able to participate and improve mobility. Patient will benefit from from long-term care facility for extended rehabilitation in order to regain full functional mobility to return to home setting independently. At this time patient refuses SNF referrals and transfer, however she is unable to discuss a realistic plan for progressing to transfers out of bed into chair or electric wheelchair, within her limitations. Impairments are contributing to the following functional limitations: AMPAC score CMS score: 64.91% Patient is assessed as a * high [id number] complexity based on the following: History: see above data Examination: see above data Presentation: unstable Decision Making: AMPAC score CMS score: 86.62 % GOALS Goals x1 week 1. Supine-sit: HOB 30 degrees independent 2. Sit-Supine HOB flat, SBA with use of leg marking machine tender 3. Sit-Stand: CGA with bariatric FWW 4. Stand-sit: SBA 5. Bed-chair: CGA with bariatric FWW 6. Chair-bed: CGA with bariatric FWW PLAN OF CARE/TREATMENT PLAN: 1-2x/day, 7 days/ week x 1 week Plan of care has been reviewed with the CLEAN RICE GRADER AND REEL TENDER providing the service under Physical therapy direction. Initiate physical therapy intervention for strengthening, bed mobility, transfers, gait, stairs, balance training, use of assistive device. DISCHARGE RECOMMENDATIONS Recommend long-term care facility for rehab TREATMENT TIME/MINUTES/CODES 30 min IE 11:00 G codes in the area of mobility,walking and moving around: GP [id number] current status, GP [id number]-EQ projected status, GP [id number] discharge status based on AMPAC score CMS score: 86.62 % Melyssa Shah PT Disclaimer: This note was created using [employer] voice recognition software. It was reviewed for major content. However, there may be multiple small discrepancies and errors due to the voice recognition aspects of the software.
--- NOTE | 2018-10-01 11:28 | IN_ITS ---
Date of service: 10/01/18 Time of Service: 11:08 PT Notes Date: 10/01/2018 Referring Doctor: Francheska Charles PT Orders: PT Consult: Eval/treat Precautions: Fall Precautions PATIENT PROFILE/ADMITTING DIAGNOSIS: Pt is a 61 yr old female admitted with hematobilia, urinary tract infection, hypotension PMHX: obesity, depression, chronic contractures bilateral knees, bilateral knee osteoarthritis, chronic pain with chronic use of nonsteroidal anti- inflammatories, asthma, obstructive sleep apnea with use of home CPAP, chronic obstructive pulmonary disease, congestive heart failure, atrial fibrillation, peptic ulcer disease, irritable bowel syndrome, renal insufficiency, thrombocytopenia, hypokalemia, chronic rhinitis, ovarian cystectomy 1988, gastric bypass surgery 1998, small bowel perforation resection, cholecystectomy , insomnia, chronic rhinitis, adult hyperactive disorder Social History/Home Situation: Lives alone in apartment, elevator to enter no stairs. Baseline mobility stand pivot transfers to electric wheelchair, primary mode of transportation is electric wheelchair in the house and in the community. Receives personal care attendent 3days/week. Receives meals on wheels. Equipment owned/DME: electric wheelchair, hospital bed patient states the head of the bed does not go up and down, handicap railings in bathroom SUBJECTIVE: Pt lying in bed, with curtains drawn and eye mask over her eyes blanket over her head. Awakens to verbal stimulus and opening of shade. Agreeable to P.T consult after encouragement. Patient states she is not going to walk today, states she is not going to try to stand until she gets injections into her knees, she reports orthopedics was here to see her but did not give her injections and states they will be back in a few days. Discussion with patient on how she transfers at home to electric wheelchair, patient states she does not use a front wheel walker and does not like to use one, she states she just stands and pulls on whatever is near her to shift over to her electric wheelchair. Discussion with patient regarding P.T goals to assist her in progressing to standing and being able to transfer to chair, patient unable to strategize with therapist at this time or discuss options for progressing to standing transfers , focusing only that she wants injections into her knees before she tries to stand. She is agreeable to sit on the edge of the bed this morning. OBJECTIVE: General Observation: IV R extremity, arndt catheter, 2 liters NC, hepatobiliary drain right abdomen patient secures with safety pins to gown with holding bag, CPAP and room for night use. Mental Status: A& O x3 Pain: c/o pain right shoulder and bilateral knees, this is chronic pain. Not rated, she is receiving pain medication. ROM: RLE AROM hip flexion 90, knee to 90 at edge of bed, ankle WNL LLE AROM hip flexion 90, knee to 90 at edge of bed , ankle WNL STRENGTH: RLE 2/5 hip flexion, 3/5 quad, 3/5 DF/PF LLE 2/5 hip flexion, 3/5 quad, 3/5 DF/PF BED MOBILITY/TRANSFERS: rolling: max A with use of bed pad Supine-sit: HOB 0degrees and railing, independent, patient was able to get legs off side of bed and use upper body to transition to sitting position with use of bed railing. Sat at edge of bed unsupported for 15 minutes before performing ADLs with BOLT HEADER and OT assist Sit-stand: refused to attempt Bed-chair: refused to attempt Sit-supine: HOB flat, Cesar for LE's, patient unable to lift legs into bed, states she uses a leg cook taco at home GAIT: refused to attempt. Patient states she will not attempt standing or transfers to chair until she gets injections in her knees by orthopedics. BALANCE: Static sitting: normal Dynamic Sitting: normal Static Standing: NT Dynamic Standing: NT SPECIAL TESTS: Mobility Limitations Standardized Measure [facility] AM -PAC ?6 clicks? Basic Mobility Inpatient Short Form: raw score: 8 standardized score: 28.58 CMS score: 86.62 % CMS modifier: CM INFORMED CONSENT/EDUCATION: Pt instructed in purpose of PT Consult and plan of care and in agreement with plan. ASSESSMENT: : Pt is a 61 yr old female admitted with hematobilia, urinary tract infection, hypotension in setting of obesity, chronic pain, bilateral knee contractures and bilateral osteoarthritis of the knees, chronic obstructive pulmonary disease and asthma, congestive heart failure and wheelchair bound mobility. Patient presents with the following impairment level findings: Anxiety requiring direction to complete tasks and encouragement to participate in therapy interventions, requiring O2 nasal cannula, decreased upper and lower extremity strength limiting ability to move her own body with position changes, pain right shoulder limiting ability to use upper extremity with transfers, osteoarthritis and pain bilateral knees limiting standing duration tolerance and transfers to wheelchair, decreased strength with mobility requiring hospital bed for railings and head of bed elevated to get into and out of bed, non-ambulatory at baseline using electric wheelchair and performing only. Patient will benefit from skilled therapy intervention for progressive strengthening and functional mobility training, will initiate 1 time per day and progresses patient is able to participate and improve mobility. Patient will benefit from from long-term care facility for extended rehabilitation in order to regain full functional mobility to return to home setting independently. At this time patient refuses SNF referrals and transfer, however she is unable to discuss a realistic plan for progressing to transfers out of bed into chair or electric wheelchair, within her limitations. Impairments are contributing to the following functional limitations: AMPAC score CMS score: 64.91% Patient is assessed as a * high [id number] complexity based on the following: History: see above data Examination: see above data Presentation: unstable Decision Making: AMPAC score CMS score: 86.62 % GOALS Goals x1 week 1. Supine-sit: HOB 30 degrees independent 2. Sit-Supine HOB flat, SBA with use of leg cook taco 3. Sit-Stand: CGA with bariatric FWW 4. Stand-sit: SBA 5. Bed-chair: CGA with bariatric FWW 6. Chair-bed: CGA with bariatric FWW PLAN OF CARE/TREATMENT PLAN: 1-2x/day, 7 days/ week x 1 week Plan of care has been reviewed with the MASTER RIGGER providing the service under Physical therapy direction. Initiate physical therapy intervention for strengthening, bed mobility, transfers, gait, stairs, balance training, use of assistive device. DISCHARGE RECOMMENDATIONS Recommend long-term care facility for rehab TREATMENT TIME/MINUTES/CODES 30 min IE 11:00 G codes in the area of mobility,walking and moving around: GP [id number] current status, GP [id number] projected status, GP [id number] discharge status based on AMPAC score CMS score: 86.62 % Melyssa Shah PT Disclaimer: This note was created using [employer] voice recognition software. It was reviewed for major content. However, there may be multiple small discrepancies and errors due to the voice recognition aspects of the software.
[2018-10-01] MEDS: MAGNESIUM SULFATE 1 GM/100 ML BAG IVPB (12:59)
[2018-10-01] MEDS: Budesonide/Formoterol 160/4.5 6 GM 60 PUFF INH IH ×2 (13:04→19:35)
--- NOTE | 2018-10-01 14:37 | PDOC.CMPRO ---
- If Service Date Differs Date of service: 10/01/18 Time of Service: 14:37 Care Management Progress Note S/O: Prema is resting in bed when this keno writer / runner visits this morning. She has an eye mask over her eyes, curtains drawn, and lights off in her room. CM attempts to meet with Prema, however she refuses CM visit for today. Prema did have a PT consult today, CM to meet with them in regards to DC planning discussion. A: 62 y/o female admitted 09/21/18 for abnormal LFTs P: Prema will return home when ready per MD. She will resume all community based supports and follow up with her PCP, Palliative Care and her plan of care as prescribed.
--- NOTE | 2018-10-01 15:29 | DI.RAD_ITS ---
SYMPTOMS/DIAGNOSIS: ABD PAIN, DISTENTION SUPINE ABDOMEN: The exam is limited by the patient's body habitus. A pigtail catheter is again seen entering from the right subcostal region. There is gaseous distention of the colon without significant change from the previous exam of 2Dec18. IMPRESSION: Stable mild colonic distention.
[2018-10-01 17:29] VITALS: BP 108/70; PULSE 90; RESP 19; TEMP 37.7; O2SAT 95
[2018-10-01] MEDS: VANCOMYCIN 1,000 MG in Normal Saline 250 ML 167 MG IVPB (18:01)
--- NOTE | 2018-10-01 18:56 | PGE_ITS ---
Date of Service Date of service: 10/01/18 Time of Service: 14:50 Assessment and Plan (1) Sepsis: Current visit: Yes Status: Acute Due to recurrent ascending cholangitis with obstruction of biliary drain due to blood clots/dislodgement. I am noticing a worsening of the LFT's and think this has to do with obstruction from clogging of the drain. S/p interrogation of drain/cholangiogram at [facility] on 09/30/18, since then without issues with the fluid in the drain. I spoke with Dr Joiner at [facility] - he gave me recommendations for flushing the drain - however, if this is ineffective, the patient would have to return to [facility] to have this addressed. Fluid cultures are growing E. Faecium and jak albicans. Continue current antibiotics (vanco, meropenem, flagyl). No indication for antifungals, per [facility] ID in their informal phone consult. (2) Hypotension: Current visit: Yes Status: Acute Continue MIVF. s/p IV albumin with some improvement. Asymptomatic. Patient previously refused pressors and insisted on continuing to take her beta blockers. (3) Hematobilia: Current visit: Yes Status: Resolved Resolved. (4) Paroxysmal atrial fibrillation: Current visit: Yes Status: Chronic Continue metoprolol. Presently appears to be in NSR. (5) Right heart failure with reduced right ventricular function: Current visit: Yes Status: Chronic Stable, asymptomatic. Latest echo with moderate pulmonary hypertension, and her tricuspid regurgitation is mild. She does appear to have moderately dilated RV and reduced RV systolic function. Tolerating IV fluid. Monitor volume /respiratory status. Continue CPAP during sleep (6) Depression: Current visit: No Status: Chronic Stable. (7) STACEY (obstructive sleep apnea): Current visit: Yes Status: Chronic Continue CPAP therapy. (8) Urinary tract infection: Current visit: Yes Status: Acute Unclear if patient had a true UTI or colonization. E. coli present on cx from 08/2018 has been treated. Gao cath replaced; repeat urine C&S with jak albicans 10,000-50,000 CFU. Not a true UTI. (9) DVT prophylaxis: Current visit: Yes Status: Acute lovenox (10) Hypomagnesemia: Current visit: Yes Status: Acute Repleted - continue to monitor (11) Discharge planning issues: Current visit: Yes Status: Acute DNR, DNI, not comfort care, does not want pressors May require transfer to [facility] if the drain continues to malfunction Subjective Interval history since last seen: Prema is complaining of abdominal pain. She thinks she might be constipated. She is not having any bowel movements after a small one yesterday. She denies dizziness, chest pain, or shortness of breath. She says the pain is pretty severe, but refuses a CT scan. She agrees to an abdominal xray. Her drain had bloody output in it yesterday and has very minimal output in it today. Exam Narrative Exam Narrative: General: Middle Aged female, asleep with blanket on top of her head HEENT: unable to examine - covered by a blanket Heart: RRR, no m/r/g Lungs: Diminished breath sounds B GI: abdomen soft; tender in RUQ - drain with billious output. Extremities 2+ B foot and ankle edema/lymphedema Objective Objective Clinical Data: Abnormal lab results 10/01/18 10/01/18 Range/Units 07:00 07:00 RBC 3.08 L (4.00-5.20) m/cumm Hgb 10.1 L (12.0-15.5) g/dL Hct 34.0 L (36.0-46.0) % MCV 110.4 H (80-95) fL MCHC 29.7 L (32.0-36.0) g/dL Absolute Lymphocytes 0.56 L (1.2-3.4) k/cumm Absolute Eosinophils 1.34 H (0.0-0.7) k/cumm BUN 4 L (7-18) mg/dL Calcium 8.1 L (8.5-10.1) mg/dL Magnesium 1.7 L (1.8-2.4) mg/dL Total Bilirubin 1.3 H (0.2-1.0) mg/dL Conjugated Bilirubin 1.05 H (0.00-0.20) mg/dL AST 75 H (15-37) U/L Alkaline Phosphatase 314 H (46-116) U/L C-Reactive Protein 2.87 H (0.0-0.3) mg/dL Total Protein 5.1 L (6.4-8.2) g/dL Albumin 2.0 L (3.4-5.0) g/dL Vital Signs Temperature 37.7 C H 10/01/18 17:29 Temperature Source Tympanic 10/01/18 17:29 Pulse 90 10/01/18 17:29 Pulse Rhythm Irregular 10/01/18 16:00 Pulse 127 H 09/22/18 10:00 Respiratory Rate 19 10/01/18 17:29 Respiratory Effort Non-Labored 10/01/18 16:00 Respiratory Depth Normal 10/01/18 16:00 Respiratory Pattern Normal 10/01/18 16:00 Blood Pressure 108/70 10/01/18 17:29 Blood Pressure Mean 61 09/22/18 10:00 Blood Pressure Position Supine 09/21/18 18:30 Pulse Oximetry 95 10/01/18 17:29 Oxygen Delivery Method Room Air 10/01/18 17:29 Oxygen Flow Rate 0 10/01/18 17:29 Fraction of Inspired Oxygen (FIO2) 24 09/29/18 07:35 Pain Level 7 10/01/18 16:18 Comment 09/25/18 00:26 Intake & Output 09/30/18 10/01/18 10/01/18 23:59 11:59 23:59 Intake Total 1937.5 / 1937.5 1592.5 / 1592.5 1680.0 / 1680.0 Output Total 1450 / 1450 1850 / 1850 125 / 125 Balance 487.5 / 487.5 -257.5 / -257.5 1555.0 / 1555.0 Weight 128.6 kg 125 kg Intake: IV 1457.5 / 1457.5 1592.5 / 1592.5 1120.0 / 1120.0 Oral 480 / 480 480 / 480 Injectate 80 / 80 Right Biliary Drainage Bag 80 / 80 Output: Drainage 800 / 800 125 / 125 Right Biliary Drainage Bag 800 / 800 125 / 125 Urine 650 / 650 1850 / 1850 Other: Urine Color [place] Yellow Urine Appearance Clear Clear Clear Stool Size Small Stool Characteristics Soft Laboratory Results WBC 6.62 k/cumm (4.4-10.8) 10/01/18 07:00 RBC 3.08 m/cumm (4.00-5.20) L 10/01/18 07:00 Hgb 10.1 g/dL (12.0-15.5) L 10/01/18 07:00 Hct 34.0 % (36.0-46.0) L 10/01/18 07:00 MCV 110.4 fL (80-95) H 10/01/18 07:00 MCH 32.8 pg (27.0-33.0) 10/01/18 07:00 MCHC 29.7 g/dL (32.0-36.0) L 10/01/18 07:00 RDW 13.9 % (11.7-14.6) 10/01/18 07:00 Plt Count 178 x1000/uL (130-400) 10/01/18 07:00 MPV 10.6 fL (8.0-11.0) 10/01/18 07:00 Immature Gran % 0.3 10/01/18 07:00 Neutrophils % 65.9 10/01/18 07:00 Lymphocytes % 8.5 10/01/18 07:00 Monocytes % 3.9 10/01/18 07:00 Eosinophils % 20.2 10/01/18 07:00 Basophils % 1.2 10/01/18 07:00 Absolute Neutrophils 4.36 k/cumm (1.2-6.7) 10/01/18 07:00 Absolute Lymphocytes 0.56 k/cumm (1.2-3.4) L 10/01/18 07:00 Absolute Monocytes 0.26 k/cumm (0.11-0.7) 10/01/18 07:00 Absolute Eosinophils 1.34 k/cumm (0.0-0.7) H 10/01/18 07:00 Absolute Basophils 0.08 k/cumm (0.0-0.2) 10/01/18 07:00 Differential Comment Rbc morph reviewed 09/30/18 06:50 RBC Morphology See below 09/30/18 06:50 Polychromasia Present 09/30/18 06:50 Hypochromasia 1+ 09/30/18 06:50 Basophilic Stippling Present 09/30/18 06:50 Macrocytosis 2+ 09/30/18 06:50 Stomatocytes 2+ 09/30/18 06:50 ESR 56 MM/HR (0-30) H 09/27/18 06:30 PT 9.8 sec (9.3-10.8) 09/27/18 06:30 INR 1.0 (1.0-3.5) 09/27/18 06:30 Sodium 142 mmol/L (136-145) 10/01/18 07:00 Potassium 3.6 mmol/L (3.5-5.1) 10/01/18 07:00 Chloride 107 mmol/L (98-107) 10/01/18 07:00 Carbon Dioxide 31.4 mmol/L (21.0-32.0) 10/01/18 07:00 Anion Gap 3.6 mmol/L (3-11) 10/01/18 07:00 BUN 4 mg/dL (7-18) L 10/01/18 07:00 Creatinine 0.58 mg/dL (0.55-1.02) 10/01/18 07:00 Estimated GFR/1.73 m2 >= 60.00 (mL/min/1.73m2) 10/01/18 07:00 Glucose 86 mg/dL (70-100) 10/01/18 07:00 Lactate 1.0 mmol/L (0.6-1.4) 09/22/18 07:02 Calcium 8.1 mg/dL (8.5-10.1) L 10/01/18 07:00 Magnesium 1.7 mg/dL (1.8-2.4) L 10/01/18 07:00 Total Bilirubin 1.3 mg/dL (0.2-1.0) H 10/01/18 07:00 Conjugated Bilirubin 1.05 mg/dL (0.00-0.20) H 10/01/18 07:00 AST 75 U/L (15-37) H 10/01/18 07:00 ALT 31 U/L (12-78) 10/01/18 07:00 Alkaline Phosphatase 314 U/L (46-116) H 10/01/18 07:00 Troponin I < 0.02 ng/mL (0.00-0.06) 09/22/18 06:45 C-Reactive Protein 2.87 mg/dL (0.0-0.3) H 10/01/18 07:00 Total Protein 5.1 g/dL (6.4-8.2) L 10/01/18 07:00 Albumin 2.0 g/dL (3.4-5.0) L 10/01/18 07:00 Cortisol 6 ug/dL 09/25/18 06:50 Urine Color Yellow (Yellow) 09/25/18 14:20 Urine Clarity Cloudy 09/25/18 14:20 Urine pH 6.0 (5-8) 09/25/18 14:20 Ur Specific [place] >= 1.030 (1.005-1.025) H 09/25/18 14:20 Urine Protein 100 mg/dL (Negative) H 09/25/18 14:20 Urine Ketones Trace mg/dL (Negative) H 09/25/18 14:20 Urine Blood Trace-intact (Negative) H 09/25/18 14:20 Urine Nitrite Negative (Negative) 09/25/18 14:20 Urine Bilirubin Negative (Negative) 09/25/18 14:20 Urine Urobilinogen 0.2 EU/dL (Up TO 0.2) 09/25/18 14:20 Ur Leukocyte Esterase Small (Negative) H 09/25/18 14:20 Urine RBC Not Applicable 09/25/18 14:20 Urine WBC >50 HPF (0-5) 09/25/18 14:20 Ur Epithelial Cells Not Applicable 09/25/18 14:20 Urine Crystals Not Applicable 09/25/18 14:20 Urine Bacteria Many HPF (Negative) 09/25/18 14:20 Urine Casts Negative LPF (Negative) 09/21/18 16:00 Urine Mucus Not Applicable 09/25/18 14:20 Urine Other Moderate yeast (Negative) 09/25/18 14:20 Ur Culture Indicated? Yes 09/25/18 14:20 Urine Glucose Negative mg/dL (Negative) 09/25/18 14:20 Vancomycin Trough 18.1 ug/mL (10.0-20.0) 09/30/18 18:25 Path Cons Comment See comment 09/26/18 07:20 XR abdomen: Stable mild colonic distention.
[2018-10-01] MEDS: Albuterol/Ipratropium 3 ML UPD VIAL IH (19:35)
[2018-10-01] MEDS: clonazePAM 1 MG TAB 2 MG PO (19:57)
[2018-10-01] MEDS: Zolpidem 10 MG TAB PO (19:57)
[2018-10-02] MEDS: Normal Saline 1,000 ML 150 ML IV ×2 (00:16→10:19)
[2018-10-02] MEDS: MEROPENEM 1 GM in Normal Saline 100 ML IVPB ×5 (02:01→21:15)
[2018-10-02 02:07] VITALS: BP 92/60; PULSE 92; RESP 20; TEMP 37; O2SAT 96
[2018-10-02] MEDS: Normal Saline Flush 10 ML SYR IVP ×6 (02:11→21:16)
[2018-10-02] MEDS: oxyCODONE 5 mg/Acetaminophen 325 mg TAB 1 TAB PO ×5 (02:14→19:20)
[2018-10-02] MEDS: MetroNIDAZOLE 500 MG/100 ML BAG 100 MG IVPB ×3 (04:53→21:16)
[2018-10-02] MEDS: Metoprolol 25 MG TAB PO ×2 (06:15→18:23)
[2018-10-02] MEDS: Acetaminophen 500 MG TAB 1000 MG PO (06:30)
[2018-10-02] MEDS: VANCOMYCIN 1,000 MG in Normal Saline 250 ML 167 MG IVPB ×2 (06:40→18:22)
[2018-10-02 07:12] LABS: Abs Immature Grans 0.02 k/cumm (0.0-0.09); Absolute Lymphocyte Count 0.52 k/cumm (1.2-3.4); Absolute Monocyte Count 0.18 k/cumm (0.11-0.7); Absolute Neutrophil Count 2.62 k/cumm (1.2-6.7); Eosinophils % 31.7; HCT 34.3 % (36.0-46.0); HGB 10.1 g/dL (12.0-15.5); Immature Grans % 0.4; Lymphocytes % 10.3; Mean Corp. HGB Concentration 29.4 g/dL (32.0-36.0); Mean Corpuscular Hemoglobin 32.3 pg (27.0-33.0); Mean Corpuscular Volume 109.6 fL (80-95); Mean Platelet Volume 10.6 fL (8.0-11.0); Monocytes % 3.6; Platelet Count 175 x1000/uL (130-400); RBC 3.13 m/cumm (4.00-5.20); RBC Distribution Width 13.7 % (11.7-14.6); White Blood Cell Count 5.04 k/cumm (4.4-10.8)
[2018-10-02 07:31] LABS: ALT 32 U/L (12-78); AST 36 U/L (15-37); Albumin 1.9 g/dL (3.4-5.0); Alkaline Phosphatase 338 U/L (46-116); Anion Gap 5.8 mmol/L (3-11); BUN 4 mg/dL (7-18); Bilirubin, Direct 0.28 mg/dL (0.00-0.20); Bilirubin, Total 0.6 mg/dL (0.2-1.0); C-Reactive Protein 2.73 mg/dL (0.0-0.3); CO2 31.2 mmol/L (21.0-32.0); CREATININE 0.53 mg/dL (0.55-1.02); Calcium 8.1 mg/dL (8.5-10.1); Chloride 107 mmol/L (98-107); Glucose 94 mg/dL (70-100); Magnesium 1.8 mg/dL (1.8-2.4); Potassium 3.3 mmol/L (3.5-5.1); Sodium 144 mmol/L (136-145)
[2018-10-02 08:00] LABS: Basophilic Stippling Present; Diff Comment Diff Reviewed; Hypochromasia 1+; Macrocytosis 2+
[2018-10-02 08:01] LABS: Polychromasia Present; Stomatocytes 2+
[2018-10-02] MEDS: Calcium 600mg/Vit D 200U TAB 2 TAB PO ×2 (08:19→19:15)
[2018-10-02] MEDS: Ferrous Sulfate 325 MG TAB PO (08:19)
[2018-10-02] MEDS: Cyanocobalamin 100 MCG TABLET PO (08:19)
[2018-10-02] MEDS: Dicyclomine 10 MG CAP PO ×2 (08:19→19:14)
[2018-10-02] MEDS: Anastrozole 1 MG TAB PO (08:19)
[2018-10-02] MEDS: Ascorbic Acid 500 MG TAB PO ×2 (08:19→19:15)
[2018-10-02] MEDS: Glucosamine 500 MG CAP PO ×2 (08:19→19:15)
[2018-10-02] MEDS: Cyclobenzaprine 10 MG TAB PO ×2 (08:19→19:15)
[2018-10-02] MEDS: Sertraline 50 MG TAB 100 MG PO (08:19)
[2018-10-02] MEDS: Enoxaparin 40 MG/0.4 ML SYR SC (08:20)
[2018-10-02] MEDS: Pantoprazole 40 MG VIAL IVP (08:20)
[2018-10-02 09:00] VITALS: BP 92/53; PULSE 89; RESP 17; TEMP 37; O2SAT 94
[2018-10-02] MEDS: Methylphenidate 10 MG TAB PO ×2 (10:20→13:59)
[2018-10-02] MEDS: Potassium Chloride 20 MEQ TABCR 40 MEQ PO (10:25)
--- NOTE | 2018-10-02 11:50 | PT.INTREAT ---
Date of service: 10/02/18 Time of Service: 11:50 PT Notes Inpatient Physical Therapy Treatment Note Date: 10/02/18 PRECAUTIONS: Fall precautions, Pre-medicate for pain prior to therapy session SUBJECTIVE: Pt lying in bed shades closed, lights off, watching TV. Agreeable to therapy session. Pt stating I don't want to stand until I get my knee shots, but I will sit on the edge of the bed and exercise. Pt states she is willing to work with therapy and staff as long as they don't boss me around. Discussed with patient therapy goals today and over weekend are to progress sitting duration and upper and lower body strengthening until she can begin standing activity, pt in agreement. OBJECTIVE: General observation: R abdomen drain, arndt catheter PAIN: c/o pain bilateral knees and in stomach my stomach has hurt for a couple days BED MOBILITY/TRANSFERS Supine-sit: HOB 40 degrees, independent with use of bedrail. Pt able to get legs to edge of bed without assist. Pt positions feet on foot stool at bedside. Sit-supine: HOB 30 degrees, Cesar for LE's into bed. Sit-stand: deferrred Bed-Chair: deferrred Pt sat at edge of bed for 15min for sitting activities, POLICE DETENTION ATTENDANT in room to comb hair. Pt transitioned back to bed to perform LE strengthening exercises. THEREX: bilateral ankle pumps, quad sets, glute sets x 20 reps, hip abduction x 10 reps. Pt tired after therex and wanting to rest. GAIT : deferred ASSESSMENT: Pt cooperative and participated in therapy session today, sitting activities and therex for strengthening. Will focus on increasing sitting duration at edge of bed, encourage nursing to have patient sit on edge of bed for meals and for bathing with feet on foot stool to increase sitting activities throughout the day. Will initiate standing transfers after patient has received steroid injections to knees due to severe OA, this will probably be over weekend or on Friday per MD. PLAN: Progress UE and LE strengthening Progress sitting duration and activities TREATMENT CODE/TIME: 38min TPx1 TAx2 11:46 Melyssa Shah PT
--- NOTE | 2018-10-02 12:01 | PTTR_ITS ---
Date of service: 10/02/18 Time of Service: 11:50 PT Notes Inpatient Physical Therapy Treatment Note Date: 10/02/18 PRECAUTIONS: Fall precautions, Pre-medicate for pain prior to therapy session SUBJECTIVE: Pt lying in bed shades closed, lights off, watching TV. Agreeable to therapy session. Pt stating I don't want to stand until I get my knee shots , but I will sit on the edge of the bed and exercise. Pt states she is willing to work with therapy and staff as long as they don't boss me around. Discussed with patient therapy goals today and over weekend are to progress sitting duration and upper and lower body strengthening until she can begin standing activity, pt in agreement. OBJECTIVE: General observation: R abdomen drain, arndt catheter PAIN: c/o pain bilateral knees and in stomach my stomach has hurt for a couple days BED MOBILITY/TRANSFERS Supine-sit: HOB 40 degrees, independent with use of bedrail. Pt able to get legs to edge of bed without assist. Pt positions feet on foot stool at bedside. Sit-supine: HOB 30 degrees, Cesar for LE's into bed. Sit-stand: deferrred Bed-Chair: deferrred Pt sat at edge of bed for 15min for sitting activities, GROOVER AND STRIPER OPERATOR in room to comb hair. Pt transitioned back to bed to perform LE strengthening exercises. THEREX: bilateral ankle pumps, quad sets, glute sets x 20 reps, hip abduction x 10 reps. Pt tired after therex and wanting to rest. GAIT : deferred ASSESSMENT: Pt cooperative and participated in therapy session today, sitting activities and therex for strengthening. Will focus on increasing sitting duration at edge of bed, encourage nursing to have patient sit on edge of bed for meals and for bathing with feet on foot stool to increase sitting activities throughout the day. Will initiate standing transfers after patient has received steroid injections to knees due to severe OA, this will probably be over weekend or on Friday per MD. PLAN: Progress UE and LE strengthening Progress sitting duration and activities TREATMENT CODE/TIME: 38min TPx1 TAx2 11:46 Melyssa Shah PT
--- NOTE | 2018-10-02 14:13 | PDOC.CMPRO ---
- If Service Date Differs Date of service: 10/02/18 Time of Service: 14:13 Care Management Progress Note S/O: Prema is resting in bed when this leader writer visits this morning. The lights are off in her room, she has cpap on, and she has an eye mask on. Prema is receptive to discussion this morning. She worked with PT today, and was able to sit on the edge of the bed and do exercises. Prema continues to state that she would like to go home when medically ready, and does not want SNF placement. A: 62 y/o female admitted 09/21/18 for abnormal LFTs P: Prema will return home when ready per MD. She will resume all community based supports and follow up with her PCP, Palliative Care and her plan of care as prescribed.
--- NOTE | 2018-10-02 14:23 | CMPROGNOTE_ITS ---
- If Service Date Differs Date of service: 10/02/18 Time of Service: 14:13 Care Management Progress Note S/O: Prema is resting in bed when this keno writer / runner visits this morning. The lights are off in her room, she has cpap on, and she has an eye mask on. Prema is receptive to discussion this morning. She worked with PT today, and was able to sit on the edge of the bed and do exercises. Prema continues to state that she would like to go home when medically ready, and does not want SNF placement. A: 62 y/o female admitted 09/21/18 for abnormal LFTs P: Prema will return home when ready per MD. She will resume all community based supports and follow up with her PCP, Palliative Care and her plan of care as prescribed.
[2018-10-02 15:33] VITALS: RESP 2
[2018-10-02] MEDS: Albuterol/Ipratropium 3 ML UPD VIAL UPD (15:33)
[2018-10-02 16:01] VITALS: BP 96/68; PULSE 96; RESP 20; TEMP 36.7; O2SAT 90
[2018-10-02 17:51] LABS: Vancomycin, Trough 18.4 ug/mL (10.0-20.0)
[2018-10-02] MEDS: Budesonide/Formoterol 160/4.5 6 GM 60 PUFF INH IH (19:14)
--- NOTE | 2018-10-02 20:00 | W.PM.PROGNOT ---
Date of Service Date of service: 10/02/18 Time of Service: 17:20 Assessment and Plan (1) Sepsis: Current visit: Yes Status: Acute Due to recurrent ascending cholangitis with obstruction of biliary drain due to blood clots/dislodgement. LFT's are better now that the drain is draining. S/p interrogation of drain/cholangiogram at [facility] on 09/30/18, now again bleeding, and the patient is refusing transfer to have this looked at. No solid culture data to guide antibiotic choice. Biliary drain fluid grew E. faecium (being covered by vanco) and jak albicans (unlikely to be pathogenic per [facility] ID). Continue broad spectrum antibiotics. End date unclear as the patient spiked a fever yesterday and will have to be revisited. Remains on vancomycin (D 11), Meropenem (Day 8), Flagyl (Day 7). (2) Hypotension: Current visit: Yes Status: Acute Fluids responsive; also, s/p IV albumin with some improvement. Asymptomatic. Ultimately, neither IVF nor albumin will remain in her intravascular space for too long. She is quite hypoalbuminemic. There are no obvious signs of septic shock right now - the patient is mentating, not reporting systemic symptoms. Will continue MIVF. Patient previously refused pressors and insisted on continuing to take her beta blockers. (3) Hematobilia: Current visit: Yes Status: Acute Recurred. The patient is refusing transfer back to [facility] and is promising me to have the bleeding stopped (with her willpower). Obviously, this is not realistic, but I respected the patient's request for more time to think about it. If bleeding continues, needs to go back to [facility] to have this addressed. (4) Paroxysmal atrial fibrillation: Current visit: Yes Status: Chronic Continue metoprolol. Not on anticoagluation. (5) Right heart failure with reduced right ventricular function: Current visit: Yes Status: Chronic Stable, asymptomatic. Latest echo with moderate pulmonary hypertension, and her tricuspid regurgitation is mild. She does appear to have moderately dilated RV and reduced RV systolic function. Tolerating IV fluid. Monitor volume/respiratory status. Continue CPAP during sleep. (6) Depression: Current visit: No Status: Chronic Stable. (7) STACEY (obstructive sleep apnea): Current visit: Yes Status: Chronic Continue CPAP therapy. (8) Urinary tract infection: Current visit: Yes Status: Acute Unclear if patient had a true UTI or colonization. E. coli present on cx from 08/2018 has been treated. E. Faecium on cx from 09/25 was not in sufficient quantities and is being adequately covered with vancomycin. Gao cath replaced; repeat urine C&S with jak albicans 10,000-50,000 CFU. Not a true UTI. (9) DVT prophylaxis: Current visit: Yes Status: Acute lovenox (10) Hypomagnesemia: Current visit: Yes Status: Acute Repleted - continue to monitor (11) Discharge planning issues: Current visit: Yes Status: Acute DNR, DNI, not comfort care, does not want pressors Will likely need [facility] - but refusing. Consider capacity evaluation. Subjective Interval history since last seen: The patient reports abdominal pain. She adamantly disagrees with me that her CPAP may be blowing more air into her stomach and making it more distended. She also adamantly thinks she can make her biliary drain stop bleeding just with her willpower and does not want to go to [facility] for any more procedures on the drain. She denies dizziness, chest pain, complains of some shortness of breath, denies nausea, vomiting. T max was 37.7 yesterday at 17:30. Exam Narrative Exam Narrative: General: Middle Aged female, awake, moaning HEENT: EOMI, MMM Heart: RRR, no m/r/g Lungs: Diminished breath sounds B GI: abdomen soft; tender in RUQ - drain with sanguenous output and a blood clot in the bag Extremities 2+ B foot and ankle edema/lymphedema Objective Objective Clinical Data: Abnormal lab results 10/02/18 10/02/18 Range/Units 06:33 06:33 RBC 3.13 L (4.00-5.20) m/cumm Hgb 10.1 L (12.0-15.5) g/dL Hct 34.3 L (36.0-46.0) % MCV 109.6 H (80-95) fL MCHC 29.4 L (32.0-36.0) g/dL Absolute Lymphocytes 0.52 L (1.2-3.4) k/cumm Absolute Eosinophils 1.60 H (0.0-0.7) k/cumm Potassium 3.3 L (3.5-5.1) mmol/L BUN 4 L (7-18) mg/dL Creatinine 0.53 L (0.55-1.02) mg/dL Calcium 8.1 L (8.5-10.1) mg/dL Conjugated Bilirubin 0.28 H (0.00-0.20) mg/dL Alkaline Phosphatase 338 H (46-116) U/L C-Reactive Protein 2.73 H (0.0-0.3) mg/dL Total Protein 5.0 L (6.4-8.2) g/dL Albumin 1.9 L (3.4-5.0) g/dL Vital Signs Temperature 36.7 C 10/02/18 16:01 Temperature Source Tympanic 10/02/18 16:01 Pulse 96 H 10/02/18 16:01 Pulse Rhythm Irregular 10/02/18 15:53 Pulse 127 H 09/22/18 10:00 Respiratory Rate 20 10/02/18 16:01 Respiratory Effort Non-Labored 10/02/18 15:53 Respiratory Depth Normal 10/02/18 15:53 Respiratory Pattern Normal 10/02/18 15:53 Blood Pressure 96/68 L 10/02/18 16:01 Blood Pressure Mean 61 09/22/18 10:00 Blood Pressure Position Supine 09/21/18 18:30 Pulse Oximetry 90 L 10/02/18 16:01 Oxygen Delivery Method Room Air 10/02/18 16:01 Oxygen Flow Rate 0 10/02/18 16:01 Fraction of Inspired Oxygen (FIO2) 24 09/29/18 07:35 Pain Level 0 10/02/18 13:17 Comment 09/25/18 00:26 Intake & Output 10/01/18 10/02/18 10/02/18 23:59 11:59 23:59 Intake Total 2147.5 / 2147.5 2062.5 / 2062.5 1345.0 / 1345.0 Output Total 925 / 925 1700 / 1700 880 / 880 Balance 1222.5 / 1222.5 362.5 / 362.5 465.0 / 465.0 Intake: IV 1582.5 / 1582.5 1817.5 / 1817.5 860.0 / 860.0 Oral 480 / 480 240 / 240 480 / 480 Injectate / 85 5 / 5 5 / 5 Right Biliary Drainage Bag 85 / 85 5 / 5 5 / 5 Output: Drainage 265 / 265 450 / 450 5 / 5 Right Biliary Drainage Bag 265 / 265 450 / 450 5 / 5 Urine 660 / 660 1250 / 1250 875 / 875 Other: Urine Color Yellow Yellow Yellow Dark Alejandra Urine Appearance Clear Clear Clear Stool Size Moderate Small Stool Characteristics Soft Soft Brown Laboratory Results WBC 5.04 k/cumm (4.4-10.8) 10/02/18 06:33 RBC 3.13 m/cumm (4.00-5.20) L 10/02/18 06:33 Hgb 10.1 g/dL (12.0-15.5) L 10/02/18 06:33 Hct 34.3 % (36.0-46.0) L 10/02/18 06:33 MCV 109.6 fL (80-95) H 10/02/18 06:33 MCH 32.3 pg (27.0-33.0) 10/02/18 06:33 MCHC 29.4 g/dL (32.0-36.0) L 10/02/18 06:33 RDW 13.7 % (11.7-14.6) 10/02/18 06:33 Plt Count 175 x1000/uL (130-400) 10/02/18 06:33 MPV 10.6 fL (8.0-11.0) 10/02/18 06:33 Immature Gran % 0.4 10/02/18 06:33 Neutrophils % 52.0 10/02/18 06:33 Lymphocytes % 10.3 10/02/18 06:33 Monocytes % 3.6 10/02/18 06:33 Eosinophils % 31.7 10/02/18 06:33 Basophils % 2.0 10/02/18 06:33 Absolute Neutrophils 2.62 k/cumm (1.2-6.7) 10/02/18 06:33 Absolute Lymphocytes 0.52 k/cumm (1.2-3.4) L 10/02/18 06:33 Absolute Monocytes 0.18 k/cumm (0.11-0.7) 10/02/18 06:33 Absolute Eosinophils 1.60 k/cumm (0.0-0.7) H 10/02/18 06:33 Absolute Basophils 0.10 k/cumm (0.0-0.2) 10/02/18 06:33 Differential Comment Diff reviewed 10/02/18 06:33 RBC Morphology See below 10/02/18 06:33 Polychromasia Present 10/02/18 06:33 Hypochromasia 1+ 10/02/18 06:33 Basophilic Stippling Present 10/02/18 06:33 Macrocytosis 2+ 10/02/18 06:33 Stomatocytes 2+ 10/02/18 06:33 ESR 56 MM/HR (0-30) H 09/27/18 06:30 PT 9.8 sec (9.3-10.8) 09/27/18 06:30 INR 1.0 (1.0-3.5) 09/27/18 06:30 Sodium 144 mmol/L (136-145) 10/02/18 06:33 Potassium 3.3 mmol/L (3.5-5.1) L 10/02/18 06:33 Chloride 107 mmol/L (98-107) 10/02/18 06:33 Carbon Dioxide 31.2 mmol/L (21.0-32.0) 10/02/18 06:33 Anion Gap 5.8 mmol/L (3-11) 10/02/18 06:33 BUN 4 mg/dL (7-18) L 10/02/18 06:33 Creatinine 0.53 mg/dL (0.55-1.02) L 10/02/18 06:33 Estimated GFR/1.73 m2 >= 60.00 (mL/min/1.73m2) 10/02/18 06:33 Glucose 94 mg/dL (70-100) 10/02/18 06:33 Lactate 1.0 mmol/L (0.6-1.4) 09/22/18 07:02 Calcium 8.1 mg/dL (8.5-10.1) L 10/02/18 06:33 Magnesium 1.8 mg/dL (1.8-2.4) 10/02/18 06:33 Total Bilirubin 0.6 mg/dL (0.2-1.0) 10/02/18 06:33 Conjugated Bilirubin 0.28 mg/dL (0.00-0.20) H 10/02/18 06:33 AST 36 U/L (15-37) 10/02/18 06:33 ALT 32 U/L (12-78) 10/02/18 06:33 Alkaline Phosphatase 338 U/L (46-116) H 10/02/18 06:33 Troponin I < 0.02 ng/mL (0.00-0.06) 09/22/18 06:45 C-Reactive Protein 2.73 mg/dL (0.0-0.3) H 10/02/18 06:33 Total Protein 5.0 g/dL (6.4-8.2) L 10/02/18 06:33 Albumin 1.9 g/dL (3.4-5.0) L 10/02/18 06:33 Cortisol 6 ug/dL 09/25/18 06:50 Urine Color Yellow (Yellow) 09/25/18 14:20 Urine Clarity Cloudy 09/25/18 14:20 Urine pH 6.0 (5-8) 09/25/18 14:20 Ur Specific [place] >= 1.030 (1.005-1.025) H 09/25/18 14:20 Urine Protein 100 mg/dL (Negative) H 09/25/18 14:20 Urine Ketones Trace mg/dL (Negative) H 09/25/18 14:20 Urine Blood Trace-intact (Negative) H 09/25/18 14:20 Urine Nitrite Negative (Negative) 09/25/18 14:20 Urine Bilirubin Negative (Negative) 09/25/18 14:20 Urine Urobilinogen 0.2 EU/dL (Up TO 0.2) 09/25/18 14:20 Ur Leukocyte Esterase Small (Negative) H 09/25/18 14:20 Urine RBC Not Applicable 09/25/18 14:20 Urine WBC >50 HPF (0-5) 09/25/18 14:20 Ur Epithelial Cells Not Applicable 09/25/18 14:20 Urine Crystals Not Applicable 09/25/18 14:20 Urine Bacteria Many HPF (Negative) 09/25/18 14:20 Urine Casts Negative LPF (Negative) 09/21/18 16:00 Urine Mucus Not Applicable 09/25/18 14:20 Urine Other Moderate yeast (Negative) 09/25/18 14:20 Ur Culture Indicated? Yes 09/25/18 14:20 Urine Glucose Negative mg/dL (Negative) 09/25/18 14:20 Vancomycin Trough 18.4 ug/mL (10.0-20.0) 10/02/18 17:20 Path Cons Comment See comment 09/26/18 07:20
--- NOTE | 2018-10-02 20:07 | PGE_ITS ---
Date of Service Date of service: 10/02/18 Time of Service: 17:20 Assessment and Plan (1) Sepsis: Current visit: Yes Status: Acute Due to recurrent ascending cholangitis with obstruction of biliary drain due to blood clots/dislodgement. LFT's are better now that the drain is draining. S/p interrogation of drain/cholangiogram at [facility] on 09/30/18, now again bleeding, and the patient is refusing transfer to have this looked at. No solid culture data to guide antibiotic choice. Biliary drain fluid grew E. faecium (being covered by vanco) and jak albicans (unlikely to be pathogenic per [facility] ID). Continue broad spectrum antibiotics. End date unclear as the patient spiked a fever yesterday and will have to be revisited. Remains on vancomycin (D 11), Meropenem (Day 8), Flagyl (Day 7). (2) Hypotension: Current visit: Yes Status: Acute Fluids responsive; also, s/p IV albumin with some improvement. Asymptomatic. Ultimately, neither IVF nor albumin will remain in her intravascular space for too long. She is quite hypoalbuminemic. There are no obvious signs of septic shock right now - the patient is mentating, not reporting systemic symptoms. Will continue MIVF. Patient previously refused pressors and insisted on continuing to take her beta blockers. (3) Hematobilia: Current visit: Yes Status: Acute Recurred. The patient is refusing transfer back to [facility] and is promising me to have the bleeding stopped (with her willpower). Obviously, this is not realistic, but I respected the patient's request for more time to think about it. If bleeding continues, needs to go back to [facility] to have this addressed. (4) Paroxysmal atrial fibrillation: Current visit: Yes Status: Chronic Continue metoprolol. Not on anticoagluation. (5) Right heart failure with reduced right ventricular function: Current visit: Yes Status: Chronic Stable, asymptomatic. Latest echo with moderate pulmonary hypertension, and her tricuspid regurgitation is mild. She does appear to have moderately dilated RV and reduced RV systolic function. Tolerating IV fluid. Monitor volume /respiratory status. Continue CPAP during sleep. (6) Depression: Current visit: No Status: Chronic Stable. (7) STACEY (obstructive sleep apnea): Current visit: Yes Status: Chronic Continue CPAP therapy. (8) Urinary tract infection: Current visit: Yes Status: Acute Unclear if patient had a true UTI or colonization. E. coli present on cx from 08/2018 has been treated. E. Faecium on cx from 09/25 was not in sufficient quantities and is being adequately covered with vancomycin. Gao cath replaced; repeat urine C&S with jak albicans 10,000-50,000 CFU. Not a true UTI. (9) DVT prophylaxis: Current visit: Yes Status: Acute lovenox (10) Hypomagnesemia: Current visit: Yes Status: Acute Repleted - continue to monitor (11) Discharge planning issues: Current visit: Yes Status: Acute DNR, DNI, not comfort care, does not want pressors Will likely need [facility] - but refusing. Consider capacity evaluation. Subjective Interval history since last seen: The patient reports abdominal pain. She adamantly disagrees with me that her CPAP may be blowing more air into her stomach and making it more distended. She also adamantly thinks she can make her biliary drain stop bleeding just with her willpower and does not want to go to [facility] for any more procedures on the drain. She denies dizziness, chest pain, complains of some shortness of breath, denies nausea, vomiting. T max was 37.7 yesterday at 17:30. Exam Narrative Exam Narrative: General: Middle Aged female, awake, moaning HEENT: EOMI, MMM Heart: RRR, no m/r/g Lungs: Diminished breath sounds B GI: abdomen soft; tender in RUQ - drain with sanguenous output and a blood clot in the bag Extremities 2+ B foot and ankle edema/lymphedema Objective Objective Clinical Data: Abnormal lab results 10/02/18 10/02/18 Range/Units 06:33 06:33 RBC 3.13 L (4.00-5.20) m/cumm Hgb 10.1 L (12.0-15.5) g/dL Hct 34.3 L (36.0-46.0) % MCV 109.6 H (80-95) fL MCHC 29.4 L (32.0-36.0) g/dL Absolute Lymphocytes 0.52 L (1.2-3.4) k/cumm Absolute Eosinophils 1.60 H (0.0-0.7) k/cumm Potassium 3.3 L (3.5-5.1) mmol/L BUN 4 L (7-18) mg/dL Creatinine 0.53 L (0.55-1.02) mg/dL Calcium 8.1 L (8.5-10.1) mg/dL Conjugated Bilirubin 0.28 H (0.00-0.20) mg/dL Alkaline Phosphatase 338 H (46-116) U/L C-Reactive Protein 2.73 H (0.0-0.3) mg/dL Total Protein 5.0 L (6.4-8.2) g/dL Albumin 1.9 L (3.4-5.0) g/dL Vital Signs Temperature 36.7 C 10/02/18 16:01 Temperature Source Tympanic 10/02/18 16:01 Pulse 96 H 10/02/18 16:01 Pulse Rhythm Irregular 10/02/18 15:53 Pulse 127 H 09/22/18 10:00 Respiratory Rate 20 10/02/18 16:01 Respiratory Effort Non-Labored 10/02/18 15:53 Respiratory Depth Normal 10/02/18 15:53 Respiratory Pattern Normal 10/02/18 15:53 Blood Pressure 96/68 L 10/02/18 16:01 Blood Pressure Mean 61 09/22/18 10:00 Blood Pressure Position Supine 09/21/18 18:30 Pulse Oximetry 90 L 10/02/18 16:01 Oxygen Delivery Method Room Air 10/02/18 16:01 Oxygen Flow Rate 0 10/02/18 16:01 Fraction of Inspired Oxygen (FIO2) 24 09/29/18 07:35 Pain Level 0 10/02/18 13:17 Comment 09/25/18 00:26 Intake & Output 10/01/18 10/02/18 10/02/18 23:59 11:59 23:59 Intake Total 2147.5 / 2147.5 2062.5 / 2062.5 1345.0 / 1345.0 Output Total 925 / 925 1700 / 1700 880 / 880 Balance 1222.5 / 1222.5 362.5 / 362.5 465.0 / 465.0 Intake: IV 1582.5 / 1582.5 1817.5 / 1817.5 860.0 / 860.0 Oral 480 / 480 240 / 240 480 / 480 Injectate / 85 5 / 5 5 / 5 Right Biliary Drainage Bag 85 / 85 5 / 5 5 / 5 Output: Drainage 265 / 265 450 / 450 5 / 5 Right Biliary Drainage Bag 265 / 265 450 / 450 5 / 5 Urine 660 / 660 1250 / 1250 875 / 875 Other: Urine Color Yellow Yellow Yellow Dark Alejandra Urine Appearance Clear Clear Clear Stool Size Moderate Small Stool Characteristics Soft Soft Brown Laboratory Results WBC 5.04 k/cumm (4.4-10.8) 10/02/18 06:33 RBC 3.13 m/cumm (4.00-5.20) L 10/02/18 06:33 Hgb 10.1 g/dL (12.0-15.5) L 10/02/18 06:33 Hct 34.3 % (36.0-46.0) L 10/02/18 06:33 MCV 109.6 fL (80-95) H 10/02/18 06:33 MCH 32.3 pg (27.0-33.0) 10/02/18 06:33 MCHC 29.4 g/dL (32.0-36.0) L 10/02/18 06:33 RDW 13.7 % (11.7-14.6) 10/02/18 06:33 Plt Count 175 x1000/uL (130-400) 10/02/18 06:33 MPV 10.6 fL (8.0-11.0) 10/02/18 06:33 Immature Gran % 0.4 10/02/18 06:33 Neutrophils % 52.0 10/02/18 06:33 Lymphocytes % 10.3 10/02/18 06:33 Monocytes % 3.6 10/02/18 06:33 Eosinophils % 31.7 10/02/18 06:33 Basophils % 2.0 10/02/18 06:33 Absolute Neutrophils 2.62 k/cumm (1.2-6.7) 10/02/18 06:33 Absolute Lymphocytes 0.52 k/cumm (1.2-3.4) L 10/02/18 06:33 Absolute Monocytes 0.18 k/cumm (0.11-0.7) 10/02/18 06:33 Absolute Eosinophils 1.60 k/cumm (0.0-0.7) H 10/02/18 06:33 Absolute Basophils 0.10 k/cumm (0.0-0.2) 10/02/18 06:33 Differential Comment Diff reviewed 10/02/18 06:33 RBC Morphology See below 10/02/18 06:33 Polychromasia Present 10/02/18 06:33 Hypochromasia 1+ 10/02/18 06:33 Basophilic Stippling Present 10/02/18 06:33 Macrocytosis 2+ 10/02/18 06:33 Stomatocytes 2+ 10/02/18 06:33 ESR 56 MM/HR (0-30) H 09/27/18 06:30 PT 9.8 sec (9.3-10.8) 09/27/18 06:30 INR 1.0 (1.0-3.5) 09/27/18 06:30 Sodium 144 mmol/L (136-145) 10/02/18 06:33 Potassium 3.3 mmol/L (3.5-5.1) L 10/02/18 06:33 Chloride 107 mmol/L (98-107) 10/02/18 06:33 Carbon Dioxide 31.2 mmol/L (21.0-32.0) 10/02/18 06:33 Anion Gap 5.8 mmol/L (3-11) 10/02/18 06:33 BUN 4 mg/dL (7-18) L 10/02/18 06:33 Creatinine 0.53 mg/dL (0.55-1.02) L 10/02/18 06:33 Estimated GFR/1.73 m2 >= 60.00 (mL/min/1.73m2) 10/02/18 06:33 Glucose 94 mg/dL (70-100) 10/02/18 06:33 Lactate 1.0 mmol/L (0.6-1.4) 09/22/18 07:02 Calcium 8.1 mg/dL (8.5-10.1) L 10/02/18 06:33 Magnesium 1.8 mg/dL (1.8-2.4) 10/02/18 06:33 Total Bilirubin 0.6 mg/dL (0.2-1.0) 10/02/18 06:33 Conjugated Bilirubin 0.28 mg/dL (0.00-0.20) H 10/02/18 06:33 AST 36 U/L (15-37) 10/02/18 06:33 ALT 32 U/L (12-78) 10/02/18 06:33 Alkaline Phosphatase 338 U/L (46-116) H 10/02/18 06:33 Troponin I < 0.02 ng/mL (0.00-0.06) 09/22/18 06:45 C-Reactive Protein 2.73 mg/dL (0.0-0.3) H 10/02/18 06:33 Total Protein 5.0 g/dL (6.4-8.2) L 10/02/18 06:33 Albumin 1.9 g/dL (3.4-5.0) L 10/02/18 06:33 Cortisol 6 ug/dL 09/25/18 06:50 Urine Color Yellow (Yellow) 09/25/18 14:20 Urine Clarity Cloudy 09/25/18 14:20 Urine pH 6.0 (5-8) 09/25/18 14:20 Ur Specific [place] >= 1.030 (1.005-1.025) H 09/25/18 14:20 Urine Protein 100 mg/dL (Negative) H 09/25/18 14:20 Urine Ketones Trace mg/dL (Negative) H 09/25/18 14:20 Urine Blood Trace-intact (Negative) H 09/25/18 14:20 Urine Nitrite Negative (Negative) 09/25/18 14:20 Urine Bilirubin Negative (Negative) 09/25/18 14:20 Urine Urobilinogen 0.2 EU/dL (Up TO 0.2) 09/25/18 14:20 Ur Leukocyte Esterase Small (Negative) H 09/25/18 14:20 Urine RBC Not Applicable 09/25/18 14:20 Urine WBC >50 HPF (0-5) 09/25/18 14:20 Ur Epithelial Cells Not Applicable 09/25/18 14:20 Urine Crystals Not Applicable 09/25/18 14:20 Urine Bacteria Many HPF (Negative) 09/25/18 14:20 Urine Casts Negative LPF (Negative) 09/21/18 16:00 Urine Mucus Not Applicable 09/25/18 14:20 Urine Other Moderate yeast (Negative) 09/25/18 14:20 Ur Culture Indicated? Yes 09/25/18 14:20 Urine Glucose Negative mg/dL (Negative) 09/25/18 14:20 Vancomycin Trough 18.4 ug/mL (10.0-20.0) 10/02/18 17:20 Path Cons Comment See comment 09/26/18 07:20
--- NOTE | 2018-10-02 20:29 | NUR.NOTE ---
Patient had biliary tube draining bloody secretions, with minimal clots in the bag, same flushed with 5mls of normal saline and bag re-attached. 10 mls bloody secretions discarded.
[2018-10-02] MEDS: clonazePAM 1 MG TAB 2 MG PO (21:16)
[2018-10-02] MEDS: Zolpidem 10 MG TAB PO (21:16)
[2018-10-02] MEDS: Loperamide 2 MG CAP PO (21:49)
[2018-10-03] MEDS: oxyCODONE 5 mg/Acetaminophen 325 mg TAB 1 TAB PO ×5 (00:58→19:58)
[2018-10-03 01:10] VITALS: BP 102/74; PULSE 92; RESP 20; TEMP 37; O2SAT 94
[2018-10-03] MEDS: MEROPENEM 1 GM in Normal Saline 100 ML IVPB ×6 (01:52→22:16)
[2018-10-03] MEDS: Normal Saline 1,000 ML 150 ML IV ×2 (02:30→17:13)
[2018-10-03] MEDS: MetroNIDAZOLE 500 MG/100 ML BAG 100 MG IVPB ×3 (05:16→22:15)
[2018-10-03] MEDS: Metoprolol 25 MG TAB PO ×2 (06:50→17:12)
[2018-10-03 07:35] LABS: ALT 29 U/L (12-78); AST 41 U/L (15-37); Albumin 1.5 g/dL (3.4-5.0); Alkaline Phosphatase 549 U/L (46-116); Anion Gap 6.5 mmol/L (3-11); BUN 2 mg/dL (7-18); Bilirubin, Direct 0.37 mg/dL (0.00-0.20); Bilirubin, Total 0.7 mg/dL (0.2-1.0); CO2 24.5 mmol/L (21.0-32.0); CREATININE 0.31 mg/dL (0.55-1.02); Chloride 111 mmol/L (98-107); Glucose 78 mg/dL (70-100); Magnesium 1.4 mg/dL (1.8-2.4); Potassium 3.2 mmol/L (3.5-5.1); Sodium 142 mmol/L (136-145); Total Protein 4.4 g/dL (6.4-8.2)
[2018-10-03] MEDS: Pantoprazole 40 MG VIAL IVP (08:26)
[2018-10-03] MEDS: Ferrous Sulfate 325 MG TAB PO (08:27)
[2018-10-03] MEDS: Glucosamine 500 MG CAP PO ×2 (08:27→19:59)
[2018-10-03] MEDS: Normal Saline Flush 10 ML SYR IVP ×2 (08:27→20:14)
[2018-10-03] MEDS: Sertraline 50 MG TAB 100 MG PO (08:27)
[2018-10-03] MEDS: Cyanocobalamin 100 MCG TABLET PO (08:27)
[2018-10-03] MEDS: Ascorbic Acid 500 MG TAB PO ×2 (08:27→19:58)
[2018-10-03] MEDS: Cyclobenzaprine 10 MG TAB PO ×2 (08:27→20:12)
[2018-10-03] MEDS: Anastrozole 1 MG TAB PO (08:27)
[2018-10-03] MEDS: Dicyclomine 10 MG CAP PO ×2 (08:27→19:59)
[2018-10-03] MEDS: Calcium 600mg/Vit D 200U TAB 2 TAB PO ×2 (08:27→19:58)
[2018-10-03] MEDS: VANCOMYCIN 1,000 MG in Normal Saline 250 ML 166.667 MG IVPB ×2 (08:28→18:14)
--- NOTE | 2018-10-03 08:47 | CMPROGNOTE_ITS ---
Care Management Progress Note S/O: Prema was reviewed during interdisciplinary rounds; MD reports Prema continues to worsen even with current interventions and would be better served at a tertiary center. Prema had previously expressed she did not want to go to [facility]. CM met with Prema to discuss; and include possible [facility] transfer. Prema reported she was afraid of further treatment but was not afraid of dying and her preference would be to return home on Hospice. She reported she had only been staying at [facility] the last week to await a visit from her grand daughter who resides in [place]. CM reported Prema's wishes would be respected and CM would advocate for her. CM discussed recommendations for transfer and for continued treatment; Prema repeatedly reported that she only wanted to return home. A: 62 y/o female admitted 09/21/18 for abnormal LFTs P: Possible Behavioral support plan to inform discharge planning needs and Prema 's goals for DC from [facility] and to successfully remain home; as she verbalizes this consistently per previous report. Prema will return home when ready per MD -planning currently is for Hospice supports on Friday. CM will request wrap around supports to increase intervention in community with request for ongoing coordinated care planning of support services.
[2018-10-03 09:00] VITALS: BP 97/62; PULSE 95; RESP 18; TEMP 37.9; O2SAT 93
[2018-10-03] MEDS: Budesonide/Formoterol 160/4.5 6 GM 60 PUFF INH IH ×2 (09:42→20:03)
[2018-10-03 09:45] VITALS: O2SAT 96
[2018-10-03] MEDS: Albuterol/Ipratropium 3 ML UPD VIAL UPD ×2 (09:48→15:34)
[2018-10-03] MEDS: Potassium Chloride 20 MEQ TABCR PO ×3 (09:59→20:02)
[2018-10-03] MEDS: Methylphenidate 10 MG TAB PO ×2 (10:08→13:26)
[2018-10-03] MEDS: Loperamide 2 MG CAP PO ×2 (10:08→20:16)
[2018-10-03 11:12] LABS: HGB 10.3 g/dL (12.0-15.5)
[2018-10-03] MEDS: MAGNESIUM SULFATE 2 GM/50 ML BAG IVPB (11:12)
--- NOTE | 2018-10-03 12:17 | PT.INTREAT ---
Date of service: 10/03/18 Time of Service: 10:55 PT Notes 10/03/18 S: Indicated she has been performing some of her exercises on her own this morning. Wants to go home. Requested to skip sitting on edge of bed this morning due to being too upset about discharge situation. Will work on transfers from supine to sitting tomorrow if willing. O: See flow sheet for ther ex performed today. Exercises consisted of UE shoulder flexion to 90 degrees, punch ups and LE hip flexion and hip abd/adduction for 10 reps each. Also, performed ankle pumps, quad sets and glut sets x 20 reps each while in supine. Following ther ex patient was seen by physician. Indicated she no longer wanted to try sitting up over edge of bed following conversation regarding discharge planning. Indicated she was too upset, will try tomorrow. We did discuss the importance of staying as active as possible to maintain her strength and functional mobility while in hospital. Stated she is not going to try standing until receiving knee injections on Friday, just too painful right now. A: Tolerated ther ex well, but needs to continue with bed mobility to avoid additional lose of strength, especially if she plans to return home. P: Continue to encourage activity with transfers and strengthening for improved function with ADLs. TP x 1, 10:55 to 11:15 (20 minutes), spoke with patient at 11:50 regarding sitting on edge of bed, but stated she was too upset. Mila Hickman, DESIGN DRAFTER CHIEF
--- NOTE | 2018-10-03 12:31 | PTTR_ITS ---
Date of service: 10/03/18 Time of Service: 10:55 PT Notes 10/03/18 S: Indicated she has been performing some of her exercises on her own this morning. Wants to go home. Requested to skip sitting on edge of bed this morning due to being too upset about discharge situation. Will work on transfers from supine to sitting tomorrow if willing. O: See flow sheet for ther ex performed today. Exercises consisted of UE shoulder flexion to 90 degrees, punch ups and LE hip flexion and hip abd/ adduction for 10 reps each. Also, performed ankle pumps, quad sets and glut sets x 20 reps each while in supine. Following ther ex patient was seen by physician. Indicated she no longer wanted to try sitting up over edge of bed following conversation regarding discharge planning. Indicated she was too upset, will try tomorrow. We did discuss the importance of staying as active as possible to maintain her strength and functional mobility while in hospital. Stated she is not going to try standing until receiving knee injections on Friday, just too painful right now. A: Tolerated ther ex well, but needs to continue with bed mobility to avoid additional lose of strength, especially if she plans to return home. P: Continue to encourage activity with transfers and strengthening for improved function with ADLs. TP x 1, 10:55 to 11:15 (20 minutes), spoke with patient at 11:50 regarding sitting on edge of bed, but stated she was too upset. Mila Hickman, PLUMBING MECHANIC
--- NOTE | 2018-10-03 15:25 | PGE_ITS ---
Date of Service Date of service: 10/03/18 Time of Service: 15:57 Assessment and Plan (1) Sepsis: Current visit: Yes Status: Acute Potentially due to recurrent ascending cholangitis with obstruction of biliary drai. S/p interrogation of drain/cholangiogram at [facility] [place], now again bleeding, and the patient is refusing transfer, requesting hospice care but to be initiated in 2 days' time. No solid culture data to guide antibiotic choice. Biliary drain fluid grew E. faecium (being covered by vanco) and jak albicans (patient likely colonized) . Continue broad spectrum antibiotics, with end date unclear as the patient spiked a fever recently, and has a TMax of 37.9. She will either need transfer to a tertiary center, or will be placed on hospice care per her wishes. Currently on Vancomycin D# 11, Meropenem Day #8, and Flagyl Day# 7. (2) Hypotension: Current visit: Yes Status: Acute Hypotension confirmed by arterial line originally. Initially likely due to sepsis in patient with underlying hypotension at baseline, currently with significant hypoalbuminemia that is worsening. Current bp is low but stable and acceptable. Continue to monitor. (3) Urinary tract infection: Current visit: Yes Status: Acute Urinalysis from 09/19 and 09/21 with evidence of infection with large Leukocyte Esterase, and >50 WBCs, but culture with >100,000 of mixed gram positive alvarado, Aerococcus Urinae which is likely not pathologic and easily treated. Also with growth of jak albicans. Review of patient's prior Urine Culture results from 08/30/2018, 09/2017, 05/2017, and 10/2016 all with growth of E.Coli sensitive to Fluoroquinolone therapy. Unclear if patient had a true UTI or colonization. E. coli present on cx from has been treated. E. Faecium on cx from 09/25 was not in sufficient quantities and is being adequately covered with vancomycin. Gao cath replaced ; repeat urine C&S with jak albicans 10,000-50,000 CFU. (4) Hematobilia: Current visit: Yes Status: Acute Initial admission from 09/18 with complete resolution of bleeding and improvement/normalization of LFTs back to baseline without intervention. Had been scheduled for transfer to [facility] [place] but refused - however, both bleeding and abnormal liver tests had resolved and normalized without intervention prior to rebleeding and repeat clots. The patient is refusing transfer back to [facility] [place], indicating that she is ready for hospice care. (5) STACEY (obstructive sleep apnea): Current visit: Yes Status: Chronic Continue CPAP therapy. (6) Right heart failure with reduced right ventricular function: Current visit: Yes Status: Chronic Stable and asymptomatic. Latest echo with moderate pulmonary hypertension. Tolerating IV fluid. Monitor volume/respiratory status. (7) Paroxysmal atrial fibrillation: Current visit: Yes Status: Chronic Continue metoprolol. Not on anticoagluation. (8) DVT prophylaxis: Current visit: Yes Status: Acute On SC Lovenox. (9) Advanced directives, counseling/discussion: Current visit: Yes Status: Acute DNR/DNI Subjective Interval history since last seen: 62 year old woman with a prior medical history of ascending cholangitis, just discharged following an admission for hematobilia, presents back to [facility] Emergency Department per request of home health nursing with reported return of blood with clots in her Hepatobiliary drain bag. Ms. Watson has a prior history of morbid obesity, Breast Ca, CAD, COPD, STACEY, PHTN with severe TR, and GERD. She was admitted to [facility] [place] 08/30 through 09/09/2018 with a diagnosis of Ascending Cholangitis and UTI with resultant septic shock, treated with IV Antibiotics and sent home on Cipro and Flagyl that she completed. She also had a biliary drain placed during that hospitalization. Since then she has been admitted and treated for intermittent hematobilia with clots and elevated LFTs, as well as potential sepsis of unknown source. She has remained on broad spectrum antibiotic therapy. She has also gone back to [facility] [place] for evaluation of the biliary drain, and despite evaluation and intervention, but now with continued bleeding and clots. The patient also previously adamantly refused transfer to a tertiary center, and declared her wishes to become DNR/DNI. She opted out of all treatment modalities, and wished to return home. However, she then changed her mind and wished for full treatment but without transfer. She is currently refusing transfer again, despite ongoing hematobilia, and requesting Hospice Care starting in 2 days following the weekend. She remains afebrile. Exam Narrative Exam Narrative: Exam Narrative: General: Patient appears comfortable lying in bed, AAOX3, NAD. Morbidly obese. Neck: Supple CV: Regular,nontachycardic, S1S2, No rubs, murmurs, or gallops. Pulmonary: Clear to auscultation bilaterally, no crackles, wheezing, or rhonchi on exam limited by body habitus. Abdomen: + Bowel Sounds, soft, nontender, nondistended. Hepatobiliary drainage bag with bloody output, clots and bleeding reported Vascular: + b/l LE edema, chronic and nonpitting Psych: Normal mood and affect. Objective Objective Clinical Data: Abnormal lab results 10/03/18 10/03/18 10/03/18 Range/Units 07:00 11:00 11:00 Hgb 10.3 L (12.0-15.5) g/dL Hct 35.0 L (36.0-46.0) % Potassium 3.2 L (3.5-5.1) mmol/L Chloride 111 H (98-107) mmol/L BUN 2 L (7-18) mg/dL Creatinine 0.31 L (0.55-1.02) mg/dL Calcium 7.0 L (8.5-10.1) mg/dL Magnesium 1.4 L (1.8-2.4) mg/dL Conjugated Bilirubin 0.37 H (0.00-0.20) mg/dL AST 41 H (15-37) U/L Alkaline Phosphatase 549 H (46-116) U/L Total Protein 4.4 L (6.4-8.2) g/dL Albumin 1.5 L (3.4-5.0) g/dL Crossmatch See Detail Vital Signs Temperature 37.9 C H 10/03/18 09:00 Temperature Source Tympanic 10/03/18 09:00 Pulse 95 H 10/03/18 09:00 Pulse Rhythm Irregular 10/03/18 08:30 Pulse 127 H 09/22/18 10:00 Respiratory Rate 18 10/03/18 09:00 Respiratory Effort Non-Labored 10/03/18 08:30 Respiratory Depth Normal 10/03/18 08:30 Respiratory Pattern Normal 10/03/18 08:30 Blood Pressure 97/62 L 10/03/18 09:00 Blood Pressure Mean 61 09/22/18 10:00 Blood Pressure Position Supine 09/21/18 18:30 Pulse Oximetry 96 10/03/18 09:45 Oxygen Delivery Method Nasal Cannula 10/03/18 09:45 Oxygen Flow Rate 2 10/03/18 09:45 Fraction of Inspired Oxygen (FIO2) 24 09/29/18 07:35 Pain Level 6 10/03/18 11:50 Comment 09/25/18 00:26 Intake & Output 10/02/18 10/03/18 10/03/18 23:59 11:59 23:59 Intake Total 1375.0 / 1375.0 880.000 / 880.000 150 / 150 Output Total 880 / 880 2785 / 2785 1300 / 1300 Balance 495.0 / 495.0 -1905.000 / -1905.000 -1150 / -1150 Intake: IV 880.0 / 880.0 870.000 / 870.000 150 / 150 Oral 480 / 480 Injectate Right Biliary Drainage Bag Output: Drainage 5 / 5 85 / 85 350 / 350 Right Biliary Drainage Bag 5 / 5 85 / 85 350 / 350 Urine 875 / 875 2700 / 2700 950 / 950 Other: Urine Color Yellow Light Alejandra Dark Alejandra Urine Appearance Clear Clear Stool Size Small Moderate Stool Characteristics Soft Soft Brown Laboratory Results WBC 5.04 k/cumm (4.4-10.8) 10/02/18 06:33 RBC 3.13 m/cumm (4.00-5.20) L 10/02/18 06:33 Hgb 10.3 g/dL (12.0-15.5) L 10/03/18 11:00 Hct 35.0 % (36.0-46.0) L 10/03/18 11:00 MCV 109.6 fL (80-95) H 10/02/18 06:33 MCH 32.3 pg (27.0-33.0) 10/02/18 06:33 MCHC 29.4 g/dL (32.0-36.0) L 10/02/18 06:33 RDW 13.7 % (11.7-14.6) 10/02/18 06:33 Plt Count 175 x1000/uL (130-400) 10/02/18 06:33 MPV 10.6 fL (8.0-11.0) 10/02/18 06:33 Abs Immat Gran (auto) Cancelled 10/03/18 07:00 Immature Gran % 0.4 10/02/18 06:33 Neutrophils % 52.0 10/02/18 06:33 Lymphocytes % 10.3 10/02/18 06:33 Monocytes % 3.6 10/02/18 06:33 Eosinophils % 31.7 10/02/18 06:33 Basophils % 2.0 10/02/18 06:33 Absolute Neutrophils 2.62 k/cumm (1.2-6.7) 10/02/18 06:33 Band Neutrophils Cancelled 10/03/18 07:00 Absolute Lymphocytes 0.52 k/cumm (1.2-3.4) L 10/02/18 06:33 Absolute Monocytes 0.18 k/cumm (0.11-0.7) 10/02/18 06:33 Absolute Eosinophils 1.60 k/cumm (0.0-0.7) H 10/02/18 06:33 Absolute Basophils 0.10 k/cumm (0.0-0.2) 10/02/18 06:33 Metamyelocytes Cancelled 10/03/18 07:00 Myelocytes Cancelled 10/03/18 07:00 Promyelocytes Cancelled 10/03/18 07:00 Nucleated RBCs Cancelled 10/03/18 07:00 Differential Comment Diff reviewed 10/02/18 06:33 Atypical Lymphocytes Cancelled 10/03/18 07:00 Other Cell Type Cancelled 10/03/18 07:00 RBC Morphology See below 10/02/18 06:33 Polychromasia Present 10/02/18 06:33 Hypochromasia 1+ 10/02/18 06:33 Poikilocytosis Cancelled 10/03/18 07:00 Basophilic Stippling Present 10/02/18 06:33 Anisocytosis Cancelled 10/03/18 07:00 Microcytosis Cancelled 10/03/18 07:00 Macrocytosis 2+ 10/02/18 06:33 Spherocytes Cancelled 10/03/18 07:00 Target Cells Cancelled 10/03/18 07:00 Tear Drop Cells Cancelled 10/03/18 07:00 Ovalocytes Cancelled 10/03/18 07:00 Stomatocytes 2+ 10/02/18 06:33 [place] Bodies Cancelled 10/03/18 07:00 [place] Cells Cancelled 10/03/18 07:00 Acanthocytes (Spur) Cancelled 10/03/18 07:00 Schistocytes Cancelled 10/03/18 07:00 ESR 56 MM/HR (0-30) H 09/27/18 06:30 PT 9.8 sec (9.3-10.8) 09/27/18 06:30 INR 1.0 (1.0-3.5) 09/27/18 06:30 Sodium 142 mmol/L (136-145) 10/03/18 07:00 Potassium 3.2 mmol/L (3.5-5.1) L 10/03/18 07:00 Chloride 111 mmol/L (98-107) H 10/03/18 07:00 Carbon Dioxide 24.5 mmol/L (21.0-32.0) 10/03/18 07:00 Anion Gap 6.5 mmol/L (3-11) 10/03/18 07:00 BUN 2 mg/dL (7-18) L 10/03/18 07:00 Creatinine 0.31 mg/dL (0.55-1.02) L 10/03/18 07:00 Estimated GFR/1.73 m2 >= 60.00 (mL/min/1.73m2) 10/03/18 07:00 Glucose 78 mg/dL (70-100) 10/03/18 07:00 Lactate 1.0 mmol/L (0.6-1.4) 09/22/18 07:02 Calcium 7.0 mg/dL (8.5-10.1) L 10/03/18 07:00 Magnesium 1.4 mg/dL (1.8-2.4) L 10/03/18 07:00 Total Bilirubin 0.7 mg/dL (0.2-1.0) 10/03/18 07:00 Conjugated Bilirubin 0.37 mg/dL (0.00-0.20) H 10/03/18 07:00 AST 41 U/L (15-37) H 10/03/18 07:00 ALT 29 U/L (12-78) 10/03/18 07:00 Alkaline Phosphatase 549 U/L (46-116) H 10/03/18 07:00 Troponin I < 0.02 ng/mL (0.00-0.06) 09/22/18 06:45 C-Reactive Protein 2.73 mg/dL (0.0-0.3) H 10/02/18 06:33 Total Protein 4.4 g/dL (6.4-8.2) L 10/03/18 07:00 Albumin 1.5 g/dL (3.4-5.0) L 10/03/18 07:00 Cortisol 6 ug/dL 09/25/18 06:50 Urine Color Yellow (Yellow) 09/25/18 14:20 Urine Clarity Cloudy 09/25/18 14:20 Urine pH 6.0 (5-8) 09/25/18 14:20 Ur Specific [place] >= 1.030 (1.005-1.025) H 09/25/18 14:20 Urine Protein 100 mg/dL (Negative) H 09/25/18 14:20 Urine Ketones Trace mg/dL (Negative) H 09/25/18 14:20 Urine Blood Trace-intact (Negative) H 09/25/18 14:20 Urine Nitrite Negative (Negative) 09/25/18 14:20 Urine Bilirubin Negative (Negative) 09/25/18 14:20 Urine Urobilinogen 0.2 EU/dL (Up TO 0.2) 09/25/18 14:20 Ur Leukocyte Esterase Small (Negative) H 09/25/18 14:20 Urine RBC Not Applicable 09/25/18 14:20 Urine WBC >50 HPF (0-5) 09/25/18 14:20 Ur Epithelial Cells Not Applicable 09/25/18 14:20 Urine Crystals Not Applicable 09/25/18 14:20 Urine Bacteria Many HPF (Negative) 09/25/18 14:20 Urine Casts Negative LPF (Negative) 09/21/18 16:00 Urine Mucus Not Applicable 09/25/18 14:20 Urine Other Moderate yeast (Negative) 09/25/18 14:20 Ur Culture Indicated? Yes 09/25/18 14:20 Urine Glucose Negative mg/dL (Negative) 09/25/18 14:20 Vancomycin Trough 18.4 ug/mL (10.0-20.0) 10/02/18 17:20 Path Cons Comment See comment 09/26/18 07:20 Patient ABO/Rh Cancelled 10/03/18 11:00 Crossmatch See Detail 10/03/18 11:00
[2018-10-03 15:58] VITALS: BP 92/59; PULSE 114; RESP 20; TEMP 37.6; O2SAT 98
[2018-10-03] MEDS: Potassium Chloride 20 MEQ TABCR 40 MEQ PO (19:59)
[2018-10-03] MEDS: Zolpidem 10 MG TAB PO (20:11)
[2018-10-03] MEDS: clonazePAM 1 MG TAB 2 MG PO (20:11)
[2018-10-04 01:53] VITALS: BP 98/61; PULSE 121; RESP 20; TEMP 39.1; O2SAT 97
[2018-10-04] MEDS: oxyCODONE 5 mg/Acetaminophen 325 mg TAB 1 TAB PO ×7 (01:56→20:06)
[2018-10-04] MEDS: MEROPENEM 1 GM in Normal Saline 100 ML IVPB ×3 (01:57→10:17)
[2018-10-04] MEDS: LORazepam 0.5 MG TAB PO (01:57)
[2018-10-04] MEDS: Normal Saline 1,000 ML 150 ML IV ×2 (02:02→13:32)
[2018-10-04] MEDS: Acetaminophen 500 MG TAB 1000 MG PO (03:32)
[2018-10-04 05:30] VITALS: TEMP 36.7
[2018-10-04] MEDS: Metoprolol 25 MG TAB PO ×2 (05:38→17:02)
[2018-10-04 05:55] LABS: Abs Immature Grans 0.02 k/cumm (0.0-0.09); Absolute Basophil Count 0.08 k/cumm (0.0-0.2); Absolute Eosinophil Count 2.58 k/cumm (0.0-0.7); Absolute Lymphocyte Count 0.54 k/cumm (1.2-3.4); Absolute Monocyte Count 0.25 k/cumm (0.11-0.7); Absolute Neutrophil Count 3.08 k/cumm (1.2-6.7); Basophils % 1.2; Eosinophils % 39.4; HCT 32.8 % (36.0-46.0); HGB 9.5 g/dL (12.0-15.5); Immature Grans % 0.3; Lymphocytes % 8.2; Mean Corpuscular Volume 110.4 fL (80-95); Mean Platelet Volume 10.5 fL (8.0-11.0); Monocytes % 3.8; Neutrophils % 47.1; Platelet Count 165 x1000/uL (130-400); RBC 2.97 m/cumm (4.00-5.20); RBC Distribution Width 14.1 % (11.7-14.6); White Blood Cell Count 6.55 k/cumm (4.4-10.8)
[2018-10-04 06:13] LABS: Anion Gap 4.9 mmol/L (3-11); BUN 4 mg/dL (7-18); CO2 31.1 mmol/L (21.0-32.0); CREATININE 0.62 mg/dL (0.55-1.02); Calcium 7.7 mg/dL (8.5-10.1); Chloride 107 mmol/L (98-107); Glucose 87 mg/dL (70-100); Magnesium 1.8 mg/dL (1.8-2.4); Potassium 4.5 mmol/L (3.5-5.1); Sodium 143 mmol/L (136-145)
[2018-10-04] MEDS: MetroNIDAZOLE 500 MG/100 ML BAG 100 MG IVPB ×2 (06:15→13:32)
[2018-10-04] MEDS: VANCOMYCIN 1,000 MG in Normal Saline 250 ML 166 MG IVPB (07:03)
[2018-10-04 07:40] VITALS: BP 93/59; PULSE 93; RESP 18; TEMP 36.6; O2SAT 93
[2018-10-04 07:50] LABS: Diff Comment Agrees w/ Instrument; Hypochromasia 1+; Macrocytosis 2+
[2018-10-04] MEDS: Potassium Chloride 20 MEQ TABCR PO ×3 (08:33→20:02)
[2018-10-04] MEDS: Sertraline 50 MG TAB 100 MG PO (08:33)
[2018-10-04] MEDS: Ascorbic Acid 500 MG TAB PO ×2 (08:33→19:59)
[2018-10-04] MEDS: Anastrozole 1 MG TAB PO (08:33)
[2018-10-04] MEDS: Calcium 600mg/Vit D 200U TAB 2 TAB PO ×2 (08:33→20:02)
[2018-10-04] MEDS: Pantoprazole 40 MG VIAL IVP (08:33)
[2018-10-04] MEDS: Normal Saline Flush 10 ML SYR IVP (08:33)
[2018-10-04] MEDS: Cyclobenzaprine 10 MG TAB PO ×2 (08:34→19:59)
[2018-10-04] MEDS: Ferrous Sulfate 325 MG TAB PO (08:34)
[2018-10-04] MEDS: Magnesium Oxide 400 MG TAB PO (08:34)
[2018-10-04] MEDS: Cyanocobalamin 100 MCG TABLET PO (08:34)
[2018-10-04] MEDS: Dicyclomine 10 MG CAP PO ×2 (08:34→20:00)
[2018-10-04] MEDS: Glucosamine 500 MG CAP PO ×2 (08:34→19:59)
[2018-10-04 09:20] VITALS: O2SAT 97
[2018-10-04] MEDS: Budesonide/Formoterol 160/4.5 6 GM 60 PUFF INH IH ×2 (09:20→20:06)
[2018-10-04 09:53] VITALS: RESP 1; RESP 8
[2018-10-04] MEDS: Albuterol/Ipratropium 3 ML UPD VIAL UPD ×2 (09:53→15:59)
[2018-10-04] MEDS: Methylphenidate 10 MG TAB PO ×2 (10:17→14:29)
--- NOTE | 2018-10-04 12:08 | PT.INTREAT ---
Date of service: 10/04/18 Time of Service: 11:50 PT Notes 10/04/18 S: Stated she is going home tomorrow on Hospice care, not going to get better. Is very cold, has lost a lot of blood. Patient was lying in bed with covers over head and Cpap in place. Refused to sit on edge of bed, but said she would do bed exercises with me but wanted to stay as covered as possible. O: Performed bed exercises only, consisting of ankle pumps, quad / glut sets, hip abd/ adduction, hip flex /ext for 30 reps each, as well as UE punch up and shoulder flexion to 90 degree for 10 reps / 20 reps each. Remained covered with blanket around head and Cpap. Asked to have lunch held at conclusion of session due to being very tired and wanting to rest. A: Tolerated today's ther ex fair, but appears to given up her will to live. P: Continue with ther ex and mobilization as patient is able and willing to perform. Plans to get injections in knees tomorrow and DC'ed home with hospice care. TP x 1, 11:50 to 12:05 (15 minutes) Mila Hickman, [employer]
--- NOTE | 2018-10-04 13:33 | W.PM.PROGNOT ---
Date of Service Date of service: 10/04/18 Time of Service: 13:41 Assessment and Plan (1) Sepsis: Current visit: Yes Status: Acute Potentially due to recurrent ascending cholangitis with obstruction of biliary drain. S/p interrogation of [place] [facility] [place], now again bleeding with continued fevers. She continues to refuse transfer, requesting hospice care but to be initiated after the weekend. Continue broad spectrum antibiotics, with end date unclear as the patient spiked a fever recently, and has a TMax of 37.9. She will either need transfer to a tertiary center, or will be placed on hospice care per her wishes. Currently on Vancomycin D# 11, Meropenem Day #8, and Flagyl Day# 7. Ms. Watson has undergone extensive testing, had surgical consultation, and biliary drain intervention. She remains on broad spectrum and appropriate antibiotic coverage. As per surgical consult only available option locally is for an open CBD exploration involving considerable morbidity and mortality given her multiple and significant comorbidities - without access to Interventional Radiology there are no other options here, and the patient is refusing transfer. Held an in-depth conversation today - patient understands that if she refuses transfer and appropriate care the end result may be significant illness and even . She is adamant about leaving the hospital and pursuing hospice care. It was explained that if she changed her mind in the future she could be significantly more ill, and we would very likely NOT admit the patient locally but instead transfer her upon presentation to the ED. She states that she is quite intent on not pursuing further care, and wishes for home hospice. For now continue broad spectrum antibiotics, with end date unclear. Patient with continued fevers. Currently on Vancomycin D# 12, Meropenem Day #9, and Flagyl Day# 8. (2) Hypotension: Current visit: Yes Status: Acute Hypotension confirmed by arterial line originally. Initially likely due to sepsis in patient with underlying hypotension at baseline, currently with significant hypoalbuminemia that is worsening. Current bp is low but stable and acceptable. Continue to monitor. (3) Urinary tract infection: Current visit: Yes Status: Acute Urinalysis from 09/19 and 09/21 with evidence of infection with large Leukocyte Esterase, and >50 WBCs, but culture with >100,000 of mixed gram positive alvarado, Aerococcus Urinae which is likely not pathologic and easily treated. Also with growth of jak albicans. Review of patient's prior Urine Culture results from 08/30/2018, 09/2017, 05/2017, and 10/2016 all with growth of E.Coli sensitive to Fluoroquinolone therapy. Unclear if patient had a true UTI or colonization. E. coli present on cx from 08/2018 has been treated. E. Faecium on cx from 09/25 was not in sufficient quantities and is being adequately covered with vancomycin. Gao cath replaced; repeat urine C&S with jak albicans 10,000-50,000 CFU which is most likely colonization and not an active infection. (4) Hematobilia: Current visit: Yes Status: Acute Initial admission from 09/18 with complete resolution of bleeding and improvement/normalization of LFTs back to baseline without intervention. Had been scheduled for transfer [place] [facility] [place] refused - however, both bleeding and abnormal liver tests had resolved and normalized without intervention prior to rebleeding and repeat clots. The patient is refusing transfer back to [facility], indicating that she is ready for hospice care. (5) STACEY (obstructive sleep apnea): Current visit: Yes Status: Chronic Continue CPAP therapy. (6) Right heart failure with reduced right ventricular function: Current visit: Yes Status: Chronic Stable and asymptomatic. Latest echo with moderate pulmonary hypertension. Tolerating IV fluid. Monitor volume/respiratory status. (7) Paroxysmal atrial fibrillation: Current visit: Yes Status: Chronic Continue metoprolol. Not on anticoagluation. (8) DVT prophylaxis: Current visit: Yes Status: Acute On SC Lovenox. (9) Advanced directives, counseling/discussion: Current visit: Yes Status: Acute DNR/DNI Subjective Interval history since last seen: 62 year old woman with a prior medical history of ascending cholangitis with septic shock s/p biliary drain, treated [place] [facility] readmitted for hematobilia, hypotension, and sepsis. Ms. Watson has a prior history of morbid obesity, Breast Ca, CAD, COPD, STACEY, PHTN with severe TR, and GERD. She was admitted [place] [facility] [place] 09/09/2018 with a diagnosis of Ascending Cholangitis and UTI with resultant septic shock, treated with IV Antibiotics and sent home on Cipro and Flagyl that she completed. She also had a biliary drain placed during that hospitalization. Since then she has been admitted and treated for intermittent hematobilia with clots and elevated LFTs, as well as potential sepsis, likely due to recurrence of ascending cholangitis. She has remained on broad spectrum antibiotic therapy. She has also gone back to [facility] [place] and intervention of the biliary drain. Despite broad spectrum antibiotic therapy and IR intervention on the biliary drain she has continued bleeding, clots, fever, and hypotension. The patient also previously adamantly refused transfer to a tertiary center, and declared her wishes to become DNR/DNI. She opted out of all treatment modalities, and wished to return home with Hospice. However, she then changed her mind and wished for full treatment but without transfer. She is currently refusing transfer again, despite ongoing hematobilia, and requesting Hospice Care starting tomorrow following. She had another fever overnight. Exam Narrative Exam Narrative: Exam Narrative: General: Patient appears comfortable lying in bed, AAOX3, NAD. Morbidly obese. Psych: Normal mood and affect. Objective Objective Clinical Data: Abnormal lab results 10/03/18 10/04/18 10/04/18 Range/Units 11:00 05:40 05:40 RBC 2.97 L (4.00-5.20) m/cumm Hgb 9.5 L (12.0-15.5) g/dL Hct 32.8 L (36.0-46.0) % MCV 110.4 H (80-95) fL MCHC 29.0 L (32.0-36.0) g/dL Absolute Lymphocytes 0.54 L (1.2-3.4) k/cumm Absolute Eosinophils 2.58 H (0.0-0.7) k/cumm BUN 4 L (7-18) mg/dL Calcium 7.7 L (8.5-10.1) mg/dL Crossmatch See Detail Vital Signs Temperature 36.6 C 10/04/18 07:40 Temperature Source Tympanic 10/04/18 07:40 Pulse 93 H 10/04/18 07:40 Pulse Rhythm Irregular 10/04/18 08:30 Pulse 127 H 09/22/18 10:00 Respiratory Rate 18 10/04/18 07:40 Respiratory Effort Non-Labored 10/04/18 08:30 Respiratory Depth Normal 10/04/18 08:30 Respiratory Pattern Normal 10/04/18 08:30 Blood Pressure 93/59 L 10/04/18 07:40 Blood Pressure Mean 61 09/22/18 10:00 Blood Pressure Position Supine 09/21/18 18:30 Pulse Oximetry 97 10/04/18 09:20 Oxygen Delivery Method Nasal Cannula 10/04/18 09:20 Oxygen Flow Rate 2 10/04/18 09:20 Fraction of Inspired Oxygen (FIO2) 24 09/29/18 07:35 Pain Level 5 10/04/18 05:37 Comment 10/04/18 01:53 Intake & Output 10/03/18 10/04/18 10/04/18 23:59 11:59 23:59 Intake Total 2380 / 2380 2125 / 2125 Output Total 1300 / 1300 3075 / 3075 Balance 1080 / 1080 -950 / -950 Intake: IV 1600 / 1600 1870 / 1870 Oral 780 / 780 250 / 250 Injectate 5 / 5 Right Biliary Drainage Bag 5 / 5 Output: Drainage 350 / 350 375 / 375 Right Biliary Drainage Bag 350 / 350 375 / 375 Urine 950 / 950 2700 / 2700 Other: Urine Color [place] Urine Appearance Clear Clear Stool Size Small Large Stool Characteristics Soft Soft [place] Laboratory Results WBC 6.55 k/cumm (4.4-10.8) 10/04/18 05:40 RBC 2.97 m/cumm (4.00-5.20) L 10/04/18 05:40 Hgb 9.5 g/dL (12.0-15.5) L 10/04/18 05:40 Hct 32.8 % (36.0-46.0) L 10/04/18 05:40 MCV 110.4 fL (80-95) H 10/04/18 05:40 MCH 32.0 pg (27.0-33.0) 10/04/18 05:40 MCHC 29.0 g/dL (32.0-36.0) L 10/04/18 05:40 RDW 14.1 % (11.7-14.6) 10/04/18 05:40 Plt Count 165 x1000/uL (130-400) 10/04/18 05:40 MPV 10.5 fL (8.0-11.0) 10/04/18 05:40 Abs Immat Gran (auto) Cancelled 10/03/18 07:00 Immature Gran % 0.3 10/04/18 05:40 Neutrophils % 47.1 10/04/18 05:40 Lymphocytes % 8.2 10/04/18 05:40 Monocytes % 3.8 10/04/18 05:40 Eosinophils % 39.4 10/04/18 05:40 Basophils % 1.2 10/04/18 05:40 Absolute Neutrophils 3.08 k/cumm (1.2-6.7) 10/04/18 05:40 Band Neutrophils Cancelled 10/03/18 07:00 Absolute Lymphocytes 0.54 k/cumm (1.2-3.4) L 10/04/18 05:40 Absolute Monocytes 0.25 k/cumm (0.11-0.7) 10/04/18 05:40 Absolute Eosinophils 2.58 k/cumm (0.0-0.7) H 10/04/18 05:40 Absolute Basophils 0.08 k/cumm (0.0-0.2) 10/04/18 05:40 Metamyelocytes Cancelled 10/03/18 07:00 Myelocytes Cancelled 10/03/18 07:00 Promyelocytes Cancelled 10/03/18 07:00 Nucleated RBCs Cancelled 10/03/18 07:00 Differential Comment Agrees w/ instrument 10/04/18 05:40 Atypical Lymphocytes Cancelled 10/03/18 07:00 Other Cell Type Cancelled 10/03/18 07:00 RBC Morphology See below 10/04/18 05:40 Polychromasia Present 10/02/18 06:33 Hypochromasia 1+ 10/04/18 05:40 Poikilocytosis Cancelled 10/03/18 07:00 Basophilic Stippling Present 10/02/18 06:33 Anisocytosis Cancelled 10/03/18 07:00 Microcytosis Cancelled 10/03/18 07:00 Macrocytosis 2+ 10/04/18 05:40 Spherocytes Cancelled 10/03/18 07:00 Target Cells Cancelled 10/03/18 07:00 Tear Drop Cells Cancelled 10/03/18 07:00 Ovalocytes Cancelled 10/03/18 07:00 Stomatocytes 2+ 10/02/18 06:33 [place] Bodies Cancelled 10/03/18 07:00 [place] Cells Cancelled 10/03/18 07:00 Acanthocytes (Spur) Cancelled 10/03/18 07:00 Schistocytes Cancelled 10/03/18 07:00 ESR 56 MM/HR (0-30) H 09/27/18 06:30 PT 9.8 sec (9.3-10.8) 09/27/18 06:30 INR 1.0 (1.0-3.5) 09/27/18 06:30 Sodium 143 mmol/L (136-145) 10/04/18 05:40 Potassium 4.5 mmol/L (3.5-5.1) D 10/04/18 05:40 Chloride 107 mmol/L (98-107) 10/04/18 05:40 Carbon Dioxide 31.1 mmol/L (21.0-32.0) 10/04/18 05:40 Anion Gap 4.9 mmol/L (3-11) 10/04/18 05:40 BUN 4 mg/dL (7-18) L 10/04/18 05:40 Creatinine 0.62 mg/dL (0.55-1.02) 10/04/18 05:40 Estimated GFR/1.73 m2 >= 60.00 (mL/min/1.73m2) 10/04/18 05:40 Glucose 87 mg/dL (70-100) 10/04/18 05:40 Lactate 1.0 mmol/L (0.6-1.4) 09/22/18 07:02 Calcium 7.7 mg/dL (8.5-10.1) L 10/04/18 05:40 Magnesium 1.8 mg/dL (1.8-2.4) 10/04/18 05:40 Total Bilirubin 0.7 mg/dL (0.2-1.0) 10/03/18 07:00 Conjugated Bilirubin 0.37 mg/dL (0.00-0.20) H 10/03/18 07:00 AST 41 U/L (15-37) H 10/03/18 07:00 ALT 29 U/L (12-78) 10/03/18 07:00 Alkaline Phosphatase 549 U/L (46-116) H 10/03/18 07:00 Troponin I < 0.02 ng/mL (0.00-0.06) 09/22/18 06:45 C-Reactive Protein 2.73 mg/dL (0.0-0.3) H 10/02/18 06:33 Total Protein 4.4 g/dL (6.4-8.2) L 10/03/18 07:00 Albumin 1.5 g/dL (3.4-5.0) L 10/03/18 07:00 Cortisol 6 ug/dL 09/25/18 06:50 Urine Color Yellow (Yellow) 09/25/18 14:20 Urine Clarity Cloudy 09/25/18 14:20 Urine pH 6.0 (5-8) 09/25/18 14:20 Ur Specific [place] >= 1.030 (1.005-1.025) H 09/25/18 14:20 Urine Protein 100 mg/dL (Negative) H 09/25/18 14:20 Urine Ketones Trace mg/dL (Negative) H 09/25/18 14:20 Urine Blood Trace-intact (Negative) H 09/25/18 14:20 Urine Nitrite Negative (Negative) 09/25/18 14:20 Urine Bilirubin Negative (Negative) 09/25/18 14:20 Urine Urobilinogen 0.2 EU/dL (Up TO 0.2) 09/25/18 14:20 Ur Leukocyte Esterase Small (Negative) H 09/25/18 14:20 Urine RBC Not Applicable 09/25/18 14:20 Urine WBC >50 HPF (0-5) 09/25/18 14:20 Ur Epithelial Cells Not Applicable 09/25/18 14:20 Urine Crystals Not Applicable 09/25/18 14:20 Urine Bacteria Many HPF (Negative) 09/25/18 14:20 Urine Casts Negative LPF (Negative) 09/21/18 16:00 Urine Mucus Not Applicable 09/25/18 14:20 Urine Other Moderate yeast (Negative) 09/25/18 14:20 Ur Culture Indicated? Yes 09/25/18 14:20 Urine Glucose Negative mg/dL (Negative) 09/25/18 14:20 Vancomycin Trough 18.4 ug/mL (10.0-20.0) 10/02/18 17:20 Path Cons Comment See comment 09/26/18 07:20 Patient ABO/Rh Cancelled 10/03/18 11:00 Crossmatch See Detail 10/03/18 11:00 Objective Narrative Objective Narrative: EXAM: NM RADIOPHARM LOC INFLAM PROCESS WHOLE BODY EXAM DATE/TIME: 09/25/2018 8:35 PM CLINICAL HISTORY: 62 years old, female; Signs and symptoms; Symptoms: Febrile illness; Patient HX: Cholangitis, S/P t tube TECHNIQUE: Anterior and posterior whole-body images were obtained approximately 1 hour and 3.5 hours following the readministration of the patient's white blood cells radiolabeled with 20.6 mCi technetium 99m. Additionally, static oblique images obtained. No SPECT images available. COMPARISON: No relevant prior studies available. FINDINGS: The technetium 99m WBC scan demonstrates small focus of abnormal radiotracer accumulation in the right right ishmael-abdomen below the liver, seen on anterior projection on both early and delayed images. There is physiologic radiotracer activity within liver, spleen, and bone marrow. Physiological activity within urinary catheter/urinary bag. Focal activity within soft tissues of the right upper extremity is related to radiotracer injection site. IMPRESSION: 1. Abnormal Tc-99M WBC scintigraphy. 2. Small focus of abnormal radiotracer accumulation within right hemiabdomen, at the expected location of the gallbladder, correlate clinically, may represent cholangitis/cholecystitis. No other foci of abnormal radiotracer accumulation.
--- NOTE | 2018-10-04 13:56 | PGE_ITS ---
Date of Service Date of service: 10/04/18 Time of Service: 13:41 Assessment and Plan (1) Sepsis: Current visit: Yes Status: Acute Potentially due to recurrent ascending cholangitis with obstruction of biliary drain. S/p interrogation of drain/cholangiogram at [facility] on 09/30/18, now again bleeding with continued fevers. She continues to refuse transfer, requesting hospice care but to be initiated after the weekend. Continue broad spectrum antibiotics, with end date unclear as the patient spiked a fever recently, and has a TMax of 37.9. She will either need transfer to a tertiary center, or will be placed on hospice care per her wishes. Currently on Vancomycin D# 11, Meropenem Day #8, and Flagyl Day# 7. Ms. Watson has undergone extensive testing, had surgical consultation, and biliary drain intervention. She remains on broad spectrum and appropriate antibiotic coverage. As per surgical consult only available option locally is for an open CBD exploration involving considerable morbidity and mortality given her multiple and significant comorbidities - without access to Interventional Radiology there are no other options here, and the patient is refusing transfer. Held an in-depth conversation today - patient understands that if she refuses transfer and appropriate care the end result may be significant illness and even . She is adamant about leaving the hospital and pursuing hospice care. It was explained that if she changed her mind in the future she could be significantly more ill, and we would very likely NOT admit the patient locally but instead transfer her upon presentation to the ED. She states that she is quite intent on not pursuing further care, and wishes for home hospice. For now continue broad spectrum antibiotics, with end date unclear. Patient with continued fevers. Currently on Vancomycin D# 12, Meropenem Day #9, and Flagyl Day# 8. (2) Hypotension: Current visit: Yes Status: Acute Hypotension confirmed by arterial line originally. Initially likely due to sepsis in patient with underlying hypotension at baseline, currently with significant hypoalbuminemia that is worsening. Current bp is low but stable and acceptable. Continue to monitor. (3) Urinary tract infection: Current visit: Yes Status: Acute Urinalysis from 09/19 and 09/21 with evidence of infection with large Leukocyte Esterase, and >50 WBCs, but culture with >100,000 of mixed gram positive alvarado, Aerococcus Urinae which is likely not pathologic and easily treated. Also with growth of jak albicans. Review of patient's prior Urine Culture results from 08/30/2018, 09/2017, 05/2017, and 10/2016 all with growth of E.Coli sensitive to Fluoroquinolone therapy. Unclear if patient had a true UTI or colonization. E. coli present on cx from has been treated. E. Faecium on cx from 09/25 was not in sufficient quantities and is being adequately covered with vancomycin. Gao cath replaced ; repeat urine C&S with jak albicans 10,000-50,000 CFU which is most likely colonization and not an active infection. (4) Hematobilia: Current visit: Yes Status: Acute Initial admission from 09/18 with complete resolution of bleeding and improvement/normalization of LFTs back to baseline without intervention. Had been scheduled for transfer to [facility] but refused - however, both bleeding and abnormal liver tests had resolved and normalized without intervention prior to rebleeding and repeat clots. The patient is refusing transfer back to [facility], indicating that she is ready for hospice care. (5) STACEY (obstructive sleep apnea): Current visit: Yes Status: Chronic Continue CPAP therapy. (6) Right heart failure with reduced right ventricular function: Current visit: Yes Status: Chronic Stable and asymptomatic. Latest echo with moderate pulmonary hypertension. Tolerating IV fluid. Monitor volume/respiratory status. (7) Paroxysmal atrial fibrillation: Current visit: Yes Status: Chronic Continue metoprolol. Not on anticoagluation. (8) DVT prophylaxis: Current visit: Yes Status: Acute On SC Lovenox. (9) Advanced directives, counseling/discussion: Current visit: Yes Status: Acute DNR/DNI Subjective Interval history since last seen: 62 year old woman with a prior medical history of ascending cholangitis with septic shock s/p biliary drain, treated at [facility], readmitted for hematobilia, hypotension, and sepsis. Ms. Watson has a prior history of morbid obesity, Breast Ca, CAD, COPD, STACEY, PHTN with severe TR, and GERD. She was admitted to [facility] 08/30 through 09/09/2018 with a diagnosis of Ascending Cholangitis and UTI with resultant septic shock, treated with IV Antibiotics and sent home on Cipro and Flagyl that she completed. She also had a biliary drain placed during that hospitalization. Since then she has been admitted and treated for intermittent hematobilia with clots and elevated LFTs, as well as potential sepsis, likely due to recurrence of ascending cholangitis. She has remained on broad spectrum antibiotic therapy. She has also gone back to [facility] for evaluation and intervention of the biliary drain. Despite broad spectrum antibiotic therapy and IR intervention on the biliary drain she has continued bleeding, clots, fever, and hypotension. The patient also previously adamantly refused transfer to a tertiary center, and declared her wishes to become DNR/DNI. She opted out of all treatment modalities, and wished to return home with Hospice. However, she then changed her mind and wished for full treatment but without transfer. She is currently refusing transfer again, despite ongoing hematobilia, and requesting Hospice Care starting tomorrow following. She had another fever overnight. Exam Narrative Exam Narrative: Exam Narrative: General: Patient appears comfortable lying in bed, AAOX3, NAD. Morbidly obese. Psych: Normal mood and affect. Objective Objective Clinical Data: Abnormal lab results 10/03/18 10/04/18 10/04/18 Range/Units 11:00 05:40 05:40 RBC 2.97 L (4.00-5.20) m/cumm Hgb 9.5 L (12.0-15.5) g/dL Hct 32.8 L (36.0-46.0) % MCV 110.4 H (80-95) fL MCHC 29.0 L (32.0-36.0) g/dL Absolute Lymphocytes 0.54 L (1.2-3.4) k/cumm Absolute Eosinophils 2.58 H (0.0-0.7) k/cumm BUN 4 L (7-18) mg/dL Calcium 7.7 L (8.5-10.1) mg/dL Crossmatch See Detail Vital Signs Temperature 36.6 C 10/04/18 07:40 Temperature Source Tympanic 10/04/18 07:40 Pulse 93 H 10/04/18 07:40 Pulse Rhythm Irregular 10/04/18 08:30 Pulse 127 H 09/22/18 10:00 Respiratory Rate 18 10/04/18 07:40 Respiratory Effort Non-Labored 10/04/18 08:30 Respiratory Depth Normal 10/04/18 08:30 Respiratory Pattern Normal 10/04/18 08:30 Blood Pressure 93/59 L 10/04/18 07:40 Blood Pressure Mean 61 09/22/18 10:00 Blood Pressure Position Supine 09/21/18 18:30 Pulse Oximetry 97 10/04/18 09:20 Oxygen Delivery Method Nasal Cannula 10/04/18 09:20 Oxygen Flow Rate 2 10/04/18 09:20 Fraction of Inspired Oxygen (FIO2) 24 09/29/18 07:35 Pain Level 5 10/04/18 05:37 Comment 10/04/18 01:53 Intake & Output 10/03/18 10/04/18 10/04/18 23:59 11:59 23:59 Intake Total 2380 / 2380 2125 / 2125 Output Total 1300 / 1300 3075 / 3075 Balance 1080 / 1080 -950 / -950 Intake: IV 1600 / 1600 1870 / 1870 Oral 780 / 780 250 / 250 Injectate 5 / 5 Right Biliary Drainage Bag 5 / 5 Output: Drainage 350 / 350 375 / 375 Right Biliary Drainage Bag 350 / 350 375 / 375 Urine 950 / 950 2700 / 2700 Other: Urine Color Meriwether Urine Appearance Clear Clear Stool Size Small Large Stool Characteristics Soft Soft Brown Green Laboratory Results WBC 6.55 k/cumm (4.4-10.8) 10/04/18 05:40 RBC 2.97 m/cumm (4.00-5.20) L 10/04/18 05:40 Hgb 9.5 g/dL (12.0-15.5) L 10/04/18 05:40 Hct 32.8 % (36.0-46.0) L 10/04/18 05:40 MCV 110.4 fL (80-95) H 10/04/18 05:40 MCH 32.0 pg (27.0-33.0) 10/04/18 05:40 MCHC 29.0 g/dL (32.0-36.0) L 10/04/18 05:40 RDW 14.1 % (11.7-14.6) 10/04/18 05:40 Plt Count 165 x1000/uL (130-400) 10/04/18 05:40 MPV 10.5 fL (8.0-11.0) 10/04/18 05:40 Abs Immat Gran (auto) Cancelled 10/03/18 07:00 Immature Gran % 0.3 10/04/18 05:40 Neutrophils % 47.1 10/04/18 05:40 Lymphocytes % 8.2 10/04/18 05:40 Monocytes % 3.8 10/04/18 05:40 Eosinophils % 39.4 10/04/18 05:40 Basophils % 1.2 10/04/18 05:40 Absolute Neutrophils 3.08 k/cumm (1.2-6.7) 10/04/18 05:40 Band Neutrophils Cancelled 10/03/18 07:00 Absolute Lymphocytes 0.54 k/cumm (1.2-3.4) L 10/04/18 05:40 Absolute Monocytes 0.25 k/cumm (0.11-0.7) 10/04/18 05:40 Absolute Eosinophils 2.58 k/cumm (0.0-0.7) H 10/04/18 05:40 Absolute Basophils 0.08 k/cumm (0.0-0.2) 10/04/18 05:40 Metamyelocytes Cancelled 10/03/18 07:00 Myelocytes Cancelled 10/03/18 07:00 Promyelocytes Cancelled 10/03/18 07:00 Nucleated RBCs Cancelled 10/03/18 07:00 Differential Comment Agrees w/ instrument 10/04/18 05:40 Atypical Lymphocytes Cancelled 10/03/18 07:00 Other Cell Type Cancelled 10/03/18 07:00 RBC Morphology See below 10/04/18 05:40 Polychromasia Present 10/02/18 06:33 Hypochromasia 1+ 10/04/18 05:40 Poikilocytosis Cancelled 10/03/18 07:00 Basophilic Stippling Present 10/02/18 06:33 Anisocytosis Cancelled 10/03/18 07:00 Microcytosis Cancelled 10/03/18 07:00 Macrocytosis 2+ 10/04/18 05:40 Spherocytes Cancelled 10/03/18 07:00 Target Cells Cancelled 10/03/18 07:00 Tear Drop Cells Cancelled 10/03/18 07:00 Ovalocytes Cancelled 10/03/18 07:00 Stomatocytes 2+ 10/02/18 06:33 Cleary-Loris Bodies Cancelled 10/03/18 07:00 Jassi Cells Cancelled 10/03/18 07:00 Acanthocytes (Spur) Cancelled 10/03/18 07:00 Schistocytes Cancelled 10/03/18 07:00 ESR 56 MM/HR (0-30) H 09/27/18 06:30 PT 9.8 sec (9.3-10.8) 09/27/18 06:30 INR 1.0 (1.0-3.5) 09/27/18 06:30 Sodium 143 mmol/L (136-145) 10/04/18 05:40 Potassium 4.5 mmol/L (3.5-5.1) D 10/04/18 05:40 Chloride 107 mmol/L (98-107) 10/04/18 05:40 Carbon Dioxide 31.1 mmol/L (21.0-32.0) 10/04/18 05:40 Anion Gap 4.9 mmol/L (3-11) 10/04/18 05:40 BUN 4 mg/dL (7-18) L 10/04/18 05:40 Creatinine 0.62 mg/dL (0.55-1.02) 10/04/18 05:40 Estimated GFR/1.73 m2 >= 60.00 (mL/min/1.73m2) 10/04/18 05:40 Glucose 87 mg/dL (70-100) 10/04/18 05:40 Lactate 1.0 mmol/L (0.6-1.4) 09/22/18 07:02 Calcium 7.7 mg/dL (8.5-10.1) L 10/04/18 05:40 Magnesium 1.8 mg/dL (1.8-2.4) 10/04/18 05:40 Total Bilirubin 0.7 mg/dL (0.2-1.0) 10/03/18 07:00 Conjugated Bilirubin 0.37 mg/dL (0.00-0.20) H 10/03/18 07:00 AST 41 U/L (15-37) H 10/03/18 07:00 ALT 29 U/L (12-78) 10/03/18 07:00 Alkaline Phosphatase 549 U/L (46-116) H 10/03/18 07:00 Troponin I < 0.02 ng/mL (0.00-0.06) 09/22/18 06:45 C-Reactive Protein 2.73 mg/dL (0.0-0.3) H 10/02/18 06:33 Total Protein 4.4 g/dL (6.4-8.2) L 10/03/18 07:00 Albumin 1.5 g/dL (3.4-5.0) L 10/03/18 07:00 Cortisol 6 ug/dL 09/25/18 06:50 Urine Color Yellow (Yellow) 09/25/18 14:20 Urine Clarity Cloudy 09/25/18 14:20 Urine pH 6.0 (5-8) 09/25/18 14:20 Ur Specific Success >= 1.030 (1.005-1.025) H 09/25/18 14:20 Urine Protein 100 mg/dL (Negative) H 09/25/18 14:20 Urine Ketones Trace mg/dL (Negative) H 09/25/18 14:20 Urine Blood Trace-intact (Negative) H 09/25/18 14:20 Urine Nitrite Negative (Negative) 09/25/18 14:20 Urine Bilirubin Negative (Negative) 09/25/18 14:20 Urine Urobilinogen 0.2 EU/dL (Up TO 0.2) 09/25/18 14:20 Ur Leukocyte Esterase Small (Negative) H 09/25/18 14:20 Urine RBC Not Applicable 09/25/18 14:20 Urine WBC >50 HPF (0-5) 09/25/18 14:20 Ur Epithelial Cells Not Applicable 09/25/18 14:20 Urine Crystals Not Applicable 09/25/18 14:20 Urine Bacteria Many HPF (Negative) 09/25/18 14:20 Urine Casts Negative LPF (Negative) 09/21/18 16:00 Urine Mucus Not Applicable 09/25/18 14:20 Urine Other Moderate yeast (Negative) 09/25/18 14:20 Ur Culture Indicated? Yes 09/25/18 14:20 Urine Glucose Negative mg/dL (Negative) 09/25/18 14:20 Vancomycin Trough 18.4 ug/mL (10.0-20.0) 10/02/18 17:20 Path Cons Comment See comment 09/26/18 07:20 Patient ABO/Rh Cancelled 10/03/18 11:00 Crossmatch See Detail 10/03/18 11:00 Objective Narrative Objective Narrative: EXAM: NM RADIOPHARM LOC INFLAM PROCESS WHOLE BODY EXAM DATE/TIME: 09/25/2018 8:35 PM CLINICAL HISTORY: 62 years old, female; Signs and symptoms; Symptoms: Febrile illness; Patient HX: Cholangitis, S/P t tube TECHNIQUE: Anterior and posterior whole-body images were obtained approximately 1 hour and 3.5 hours following the readministration of the patient's white blood cells radiolabeled with 20.6 mCi technetium 99m. Additionally, static oblique images obtained. No SPECT images available. COMPARISON: No relevant prior studies available. FINDINGS: The technetium 99m WBC scan demonstrates small focus of abnormal radiotracer accumulation in the right right ishmael-abdomen below the liver, seen on anterior projection on both early and delayed images. There is physiologic radiotracer activity within liver, spleen, and bone marrow. Physiological activity within urinary catheter/urinary bag. Focal activity within soft tissues of the right upper extremity is related to radiotracer injection site. IMPRESSION: 1. Abnormal Tc-99M WBC scintigraphy. 2. Small focus of abnormal radiotracer accumulation within right hemiabdomen, at the expected location of the gallbladder, correlate clinically, may represent cholangitis/cholecystitis. No other foci of abnormal radiotracer accumulation.
--- NOTE | 2018-10-04 15:33 | PDOC.CMPRO ---
Care Management Progress Note S/O: Prema was lying in bed with CPAP on, small fleece blanket over her head when CM entered the room. She removed the appartatus's on her head to take her medication with RN; Yolanda with V8 juice which Prema is quite fond of and had many cans of within her reach. CM requested check in to which Prema reported no. CM provided positive reinforcement for Prema checking in with this marine underwriter and questioned whether Prema had though about our conversation and still felt the same about returning home. Prema confirmed this was her wishes, but did not overly engage with this marine underwriter. She did may eye contact, say yes and make agreeable sounds as well. She was pleasant enough and responded with your welcome when CM thanked her for engaging with this marine underwriter. CM discussed recommendations for transfer and for continued treatment; Prema remains consistent that she only wants to return home. Prema lost IV access today and new access will not be attempted at this time per RNCC: Mandie. A: 62 y/o female admitted 09/21/18 for abnormal LFTs, AFIb P: [facility]. Prema remains consistent that she will be returning home tomorrow; CM will continue to follow. Possible Behavioral support plan to inform discharge planning needs and Prema's goals for DC from [facility] and to successfully remain home; as she verbalizes this consistently per previous report. Prema will return home when ready per MD-planning currently is for Hospice supports on Friday. CM will request wrap around supports to increase intervention in community with request for ongoing coordinated care planning of support services.
--- NOTE | 2018-10-04 15:39 | CMPROGNOTE_ITS ---
Care Management Progress Note S/O: Prema was lying in bed with CPAP on, small fleece blanket over her head when CM entered the room. She removed the appartatus's on her head to take her medication with RN; Yolanda with V8 juice which Prema is quite fond of and had many cans of within her reach. CM requested check in to which Prema reported no . CM provided positive reinforcement for Prema checking in with this mortgage loan underwriter and questioned whether Prema had though about our conversation and still felt the same about returning home. Prema confirmed this was her wishes, but did not overly engage with this mortgage loan underwriter. She did may eye contact, say yes and make agreeable sounds as well. She was pleasant enough and responded with your welcome when CM thanked her for engaging with this mortgage loan underwriter. CM discussed recommendations for transfer and for continued treatment; Prema remains consistent that she only wants to return home. Prema lost IV access today and new access will not be attempted at this time per RNCC: Mandie. A: 62 y/o female admitted 09/21/18 for abnormal LFTs, AFIb P: [facility]. Prema remains consistent that she will be returning home tomorrow; CM will continue to follow. Possible Behavioral support plan to inform discharge planning needs and Prema's goals for DC from [facility] and to successfully remain home; as she verbalizes this consistently per previous report. Prema will return home when ready per MD-planning currently is for Hospice supports on Friday. CM will request wrap around supports to increase intervention in community with request for ongoing coordinated care planning of support services.
[2018-10-04 16:43] VITALS: BP 96/61; PULSE 112; RESP 19; TEMP 39; O2SAT 92
[2018-10-04] MEDS: Loperamide 2 MG CAP PO (19:06)
[2018-10-04] MEDS: Zolpidem 10 MG TAB PO (19:59)
[2018-10-04] MEDS: clonazePAM 1 MG TAB 2 MG PO (20:01)
[2018-10-05] MEDS: oxyCODONE 5 mg/Acetaminophen 325 mg TAB 1 TAB PO ×4 (01:50→13:29)
[2018-10-05 05:10] VITALS: BP 94/58; PULSE 109; RESP 18; TEMP 37.5; O2SAT 91
[2018-10-05] MEDS: Metoprolol 25 MG TAB PO (05:53)
[2018-10-05 07:16] LABS: Abs Immature Grans 0.01 k/cumm (0.0-0.09); Absolute Basophil Count 0.05 k/cumm (0.0-0.2); Absolute Eosinophil Count 3.19 k/cumm (0.0-0.7); Absolute Lymphocyte Count 0.75 k/cumm (1.2-3.4); Absolute Monocyte Count 0.36 k/cumm (0.11-0.7); Absolute Neutrophil Count 2.31 k/cumm (1.2-6.7); Basophils % 0.7; Eosinophils % 47.8; HCT 32.1 % (36.0-46.0); HGB 9.4 g/dL (12.0-15.5); Immature Grans % 0.1; Lymphocytes % 11.2; Mean Corp. HGB Concentration 29.3 g/dL (32.0-36.0); Mean Corpuscular Hemoglobin 32.3 pg (27.0-33.0); Mean Corpuscular Volume 110.3 fL (80-95); Monocytes % 5.4; Neutrophils % 34.8; Platelet Count 149 x1000/uL (130-400); RBC 2.91 m/cumm (4.00-5.20); RBC Distribution Width 14.2 % (11.7-14.6); White Blood Cell Count 6.67 k/cumm (4.4-10.8)
[2018-10-05 07:20] VITALS: BP 104/63; PULSE 89; RESP 18; TEMP 37.5; O2SAT 92
[2018-10-05 07:27] LABS: Anion Gap 0.7 mmol/L (3-11); BUN 6 mg/dL (7-18); CO2 33.3 mmol/L (21.0-32.0); CREATININE 0.53 mg/dL (0.55-1.02); Calcium 8.2 mg/dL (8.5-10.1); Chloride 105 mmol/L (98-107); Glucose 92 mg/dL (70-100); Magnesium 1.8 mg/dL (1.8-2.4); Potassium 4.5 mmol/L (3.5-5.1); Sodium 139 mmol/L (136-145)
[2018-10-05 07:36] LABS: Diff Comment Agrees w/ Instrument
[2018-10-05 07:37] LABS: Macrocytosis 2+; Polychromasia Present; Stomatocytes 2+
[2018-10-05 08:04] LABS: ALT 44 U/L (12-78); AST 63 U/L (15-37); Albumin 1.8 g/dL (3.4-5.0); Alkaline Phosphatase 981 U/L (46-116); Bilirubin, Direct 1.41 mg/dL (0.00-0.20); Bilirubin, Total 1.8 mg/dL (0.2-1.0); Total Protein 4.4 g/dL (6.4-8.2)
[2018-10-05 09:00] VITALS: O2SAT 94
[2018-10-05] MEDS: Sertraline 50 MG TAB 100 MG PO (09:34)
[2018-10-05] MEDS: Cyanocobalamin 100 MCG TABLET PO (09:34)
[2018-10-05] MEDS: Calcium 600mg/Vit D 200U TAB 2 TAB PO (09:34)
[2018-10-05] MEDS: Dicyclomine 10 MG CAP PO (09:34)
[2018-10-05] MEDS: Anastrozole 1 MG TAB PO (09:34)
[2018-10-05] MEDS: Ferrous Sulfate 325 MG TAB PO (09:34)
[2018-10-05] MEDS: Ascorbic Acid 500 MG TAB PO (09:35)
[2018-10-05] MEDS: Glucosamine 500 MG CAP PO (09:35)
[2018-10-05] MEDS: Potassium Chloride 20 MEQ TABCR PO ×2 (09:35→13:29)
[2018-10-05] MEDS: Methylphenidate 10 MG TAB PO ×2 (09:35→13:29)
[2018-10-05] MEDS: Cyclobenzaprine 10 MG TAB PO (09:35)
--- NOTE | 2018-10-05 10:31 | OT.INTREAT ---
Date of service: 10/05/18 Time of Service: 09:50 Occupational Therapy Notes Occupational Therapy Inpatient Treatment Note Date: 10/05/18 SUBJECTIVE: Pt was lying in bed playing cards with who she reports is her caregiver. Pt is agreeable to OT session but reports that she needs to have her bed cleaned and that her catheter is leaking. OT notified [employer] who reports she is going to go in pts room soon. OBJECTIVE: PAIN:no c/o pain. Slight facial grimacing with moving side to side in bed but no reports of pain. FUNCTIONAL MOBILITY Rolling L/R: (I) BATHING: Lying in bed HOB 32* max (A) set up. Upper Body: (I) Washing face, (B) shoulders and abdomen and abdomen crease, min (A) washing (B) forearms which pt reports she is unable to perform. Lower Body: Max (A) (B) feet and below the knees which is pt's baseline per pt report. Pt able to wash upper part of thighs (I) with min vc. DRESSING: Upper Extremity: Min (A) and min vc pt able to don hospital gown. THEREX: Pt performed the following with min vc laying in her bed: Shoulder flexion 10x shoulder ER/IR with hands behind head 10x Reaching towards knees with hands 10x to increase (I) with LE bathing. ASSESSMENT: Pt demonstrated increased (I) in bathing routine with decreased VC. Pt was receptive to education and training in washing abdomen and pt was receptive to ROM exercises to increase pts functional activity tolerance to ADLs. Pt would benefit from continued skilled OT intervention for initiation of strengthening for (B) UE and education in use of sock aid for LE dressing of socks to (B) feet. PLAN: OT will work with pt on LE dressing with use of sock aid and initiation and progression of UE strengthening program. TREATMENT CODES/TIME: Self Carex3, 40 minutes (09:50) ROSE MARY Ayala/Bina
--- NOTE | 2018-10-05 12:20 | OCONE_ITS ---
Date of service: 10/05/18 Time of Service: 12:19 History of Present Illness Chief Complaint: Bilateral knee pain Consults Consult date: 10/05/18 PFS Morbid obesity with BMI of 45.0-49.9, adult (Chronic) Depression (Chronic) History of DVD (Chronic) DJD (degenerative joint disease) (Chronic) History of PSVT (paroxysmal supraventricular tachycardia) (Chronic) Chronic back pain (Chronic) Bilateral cataracts (Chronic) Paroxysmal atrial fibrillation (Chronic) Diastolic heart failure (Chronic) Atrial fibrillation (Chronic) Right heart failure with reduced right ventricular function (Chronic) STACEY (obstructive sleep apnea) (Chronic) ADD (attention deficit disorder) Angina at rest Asthma Atrial fibrillation Breast cancer Chest pain, atypical Chronic pain Chronic rhinitis Cirrhosis of liver Compression fracture of spine Decreased visual acuity Depression Diastolic heart failure GI (gastrointestinal bleed) Gastric bypass status for obesity History of paroxysmal supraventricular tachycardia Hx of deep venous thrombosis Hyperparathyroidism , secondary, non-renal Hypertension IBS (irritable bowel syndrome) Insomnia Morbid obesity STACEY (obstructive sleep apnea) Osteoarthritis Osteopenia Oxygen dependent PUD (peptic ulcer disease) Pulmonary HTN Superficial thrombophlebitis Tricuspid regurgitation History of biliary T-tube placement (Resolved 09/01/18) Breast, Mastectomy EGD - MAC Gastric Bypass Exam Extrem Other: Patient to me. She has end-stage osteoarthritis of both knees. She is not a candidate for surgery. I have been treating her every 3 months with Depo- Medrol injections into the knee. She is 1 month overdue because of recent sepsis Dr. Mccloud felt that I should not inject her knees until her infection was under control. This was authorized for injection today by the hospitalist. I injected both knees with 80 mg of Depo-Medrol without difficulty. This is done by a lateral parapatellar portal. She will follow-up with me in 3 Results Last Vital Signs Temp 99.5 F 10/05/18 07:20 Pulse 89 10/05/18 07:20 Resp 18 10/05/18 07:20 BP 104/63 10/05/18 07:20 Pulse Ox 92 L 10/05/18 07:20 Labs : 10/05/18 06:44 10/05/18 06:44 Laboratory Results - last 24 hr 10/05/18 10/05/18 10/05/18 06:44 06:44 06:44 WBC 6.67 RBC 2.91 L Hgb 9.4 L Hct 32.1 L MCV 110.3 H MCH 32.3 MCHC 29.3 L RDW 14.2 Plt Count 149 MPV 11.0 Immature Gran % 0.1 Neutrophils % 34.8 Lymphocytes % 11.2 Monocytes % 5.4 Eosinophils % 47.8 Basophils % 0.7 Absolute Neutrophils 2.31 Absolute Lymphocytes 0.75 L Absolute Monocytes 0.36 Absolute Eosinophils 3.19 H Absolute Basophils 0.05 Differential Comment Agrees w/ instrument RBC Morphology See below Polychromasia Present Macrocytosis 2+ Stomatocytes 2+ Sodium 139 Potassium 4.5 Chloride 105 Carbon Dioxide 33.3 H Anion Gap 0.7 L BUN 6 L Creatinine 0.53 L Estimated GFR/1.73 m2 >= 60.00 Glucose 92 Calcium 8.2 L Magnesium 1.8 Total Bilirubin 1.8 H Conjugated Bilirubin 1.41 H AST 63 H ALT 44 Alkaline Phosphatase 981 H Total Protein 4.4 L Albumin 1.8 L Procedures Joint Aspiration/Injection Joint Asp./Inject. 2: Additional comments: Under sterile technique each knee is injected with 80 mg of Depo-Medrol and 5 cc of 0.5% Marcaine as a dispersement
--- NOTE | 2018-10-05 12:39 | W.PM.DS.N ---
Date of service: 10/05/18 Time of Service: 12:39 DS: Diagnosis Discharge Diagnosis (1) Sepsis: Status: Acute (2) Hypotension: Status: Acute (3) Hematobilia: Status: Acute (4) Advanced directives, counseling/discussion: Status: Acute Discharge Plan Disposition Patient Disposition: HOME W/HOME HEALTH SERVICE Condition: Serious Discharge Details Reason For Visit: ABNORMAL LFTS, AFIB Admit Date/Time: 09/21/18 15:36 Admit Provider: Seven Wells Attending Provider: Seven Wells Primary Care Provider: Sera Gutiérrez Hospital Course Hospital Course: CC: Hematobilia, Hypotension HPI: 62 year old woman with a prior medical history of ascending cholangitis with septic shock s/p biliary drain, treated at [facility] in early August of this year, readmitted for hematobilia, hypotension, and sepsis. Ms. Watson has a prior history of morbid obesity, Breast Ca, CAD, COPD, STACEY, PHTN with severe TR, and GERD. She was admitted to [facility] 08/30 through 09/09/2018 with a diagnosis of Ascending Cholangitis and UTI with resultant septic shock, treated with IV Antibiotics and sent home on Cipro and Flagyl that she completed. She also had a biliary drain placed during that hospitalization. Since then she has been admitted and treated for intermittent hematobilia with clots and elevated LFTs, as well as sepsis, likely due to recurrence of ascending cholangitis. She has had numerous imaging as well as blood, urinary, and biliary cultures.She has remained on broad spectrum antibiotic therapy. She has also gone back to [facility] for evaluation and intervention of the biliary drain. Has also been evaluated by local surgery. Despite broad spectrum antibiotic therapy and IR intervention on the biliary drain she has continued bleeding, clots, fever, and hypotension. The patient also previously adamantly refused transfer to a tertiary center, and declared her wishes to become DNR/DNI. She opted out of all treatment modalities, and wished to return home with Hospice. However, she then changed her mind and wished for full treatment but without transfer. She is currently again refusing transfer, despite ongoing hematobilia and fevers. She had requested Hospice Care, but is now no longer interested. She had another fever yesterday evening. Hospital Course: (1) Sepsis: Potentially due to recurrent ascending cholangitis with obstruction of biliary drain. Ms. Watson is s/p interrogation of drain with cholangiogram at [facility] on 09/30/18, now again bleeding with continued fevers. She continues to refuse transfer to any tertiary center, and is in fact refusing any further intervention at any facility, but continues to wish for antibiotic therapy. Multiple in-depth discussions were held regarding the futility of her current decision, especially since she is now again not wishing for palliative or hospice care. Discussed that she continues to be febrile despite broad spectrum antibiotic therapy, and without further intervention that is not available at this local hospital she will not improve, and will in fact deteriorate. Ms. Watson has undergone extensive testing, had surgical consultation, and biliary drain intervention. She remains on broad spectrum and appropriate antibiotic coverage. As per surgical consult only available option locally is for an open CBD exploration involving considerable morbidity and mortality given her multiple and significant comorbidities - without access to Interventional Radiology there are no other options here, and the patient as previously stated continues to refuse transfer. Held another in-depth conversation today - patient understands that if she refuses transfer and appropriate care the end result may be significant illness and even . She is adamant about leaving the hospital and again expressed this wish today. It was explained that if she changed her mind in the future she could be significantly more ill, and we would very likely NOT admit the patient locally as there is no further treatment options here, but instead transfer to a tertiary center her upon presentation to the ED. She states that she is quite intent on not pursuing further care, and wishes to return home. Of note, the patient is also demanding that her knees be injected by ortho prior to leaving the hospital - Dr. Marino has been consulted. She has now received Vancomycin for 12 days, Meropenem for 9, and Flagyl for 8. Will complete a course of antibiotics again for 14 days despite likely futility of this. Also recommended strongly that patient follow-up with GI at [facility], but she is not interested, and did not wish for us to initiate follow-up scheduling for her. She will be discharged with home health for VNA, PT, and OT. (2) Hypotension: Hypotension confirmed by arterial line originally. Initially likely due to sepsis in patient with underlying hypotension at baseline, currently with significant hypoalbuminemia that is worsening. Current bp is low but stable and acceptable. (3) Urinary tract infection: Urinalysis from 09/19 and 09/21 with evidence of infection with large Leukocyte Esterase, and >50 WBCs, but culture with >100,000 of mixed gram positive alvarado, Aerococcus Urinae which is likely not pathologic and easily treated per ID. Also with growth of jak albicans. Review of patient's prior Urine Culture results from 08/30/2018, 09/2017, 05/2017, and 10/2016 all with growth of E.Coli sensitive to Fluoroquinolone therapy. Unclear if patient had a true UTI or colonization. E. coli present on cx from 08/2018 has been treated. E. Faecium on cx from 09/25 was not in sufficient quantities and is being adequately covered with vancomycin. Gao cath replaced; repeat urine C&S with jak albicans 10,000-50,000 CFU which is most likely colonization and not an active infection. (4) Hematobilia: Initial admission from 09/18 with complete resolution of bleeding and improvement/normalization of LFTs back to baseline without intervention. Had been scheduled for transfer to [facility] but refused - however, both bleeding and abnormal liver tests had resolved and normalized without intervention prior to rebleeding and repeat clots. She had undergone a transfer for IR intervention and return on same day without resolution. The patient is refusing transfer back to [facility] as stated above. (5) STACEY (obstructive sleep apnea): Continue CPAP therapy. (6) Right heart failure with reduced right ventricular function: Stable and asymptomatic. Latest echo with moderate pulmonary hypertension. Tolerating IV fluid. Monitor volume/respiratory status. (7) Paroxysmal atrial fibrillation: Continue metoprolol. Not on anticoagluation. (8) DVT prophylaxis: Maintained on SC Lovenox despite hematobilia due to high risk for DVT as well as relatively stable hemoglobin. (9) Advanced directives, counseling/discussion: DNR/DNI Home Meds and New Rx's Prescriptions: New metronidazole [Flagyl] 500 mg tablet 500 mg PO TID Qty: 9 RF: 0 Continue sertraline [Zoloft] 50 MG tablet 100 mg PO DAILY RF: 0 clonazepam 1 MG tablet,disintegrating 2 tab PO HS RF: 0 loperamide [Imodium A-D] 2 MG capsule 2 mg PO QID PRN (Reason: Diarrhea) RF: 0 oxycodone-acetaminophen [Percocet] 1 EACH tablet 1 ea PO QID RF: 0 methylphenidate HCl 10 MG tablet 10 mg PO BID RF: 0 nystatin (bulk) 1 EACH powder 1 ea Miscellaneous TID RF: 0 ipratropium-albuterol 3 ML solution for nebulization 3 ml Inhalation QID RF: 0 acetaminophen 500 MG tablet 1,000 mg PO Q6H PRN RF: 0 naloxone [Narcan] 4 MG spray,non-aerosol 4 mg NS as directed 1 Days Qty: 2 RF: 0 lorazepam 0.5 MG tablet 0.5 mg PO QID PRNRF: 0 pantoprazole 40 MG tablet,delayed release (DR/EC) 40 mg PO DAILY RF: 0 albuterol sulfate [ProAir HFA] 200 PUFF HFA aerosol inhaler 2 puff Inhalation .Q4-6H PRN PRNRF: 0 cyclobenzaprine 10 MG tablet 10 mg PO BID RF: 0 calcium carbonate-vitamin D3 1 EACH tablet 2 tab PO BID RF: 0 ferrous sulfate 325 MG tablet 325 mg PO DAILY RF: 0 dicyclomine 10 MG capsule 10 mg PO BID RF: 0 loratadine 10 MG tablet 10 mg PO DAILY PRNRF: 0 fluticasone-salmeterol [Advair HFA] 60 PUFF HFA aerosol inhaler 2 puff Inhalation BID RF: 0 anastrozole [Arimidex] 1 MG tablet 1 mg PO DAILY RF: 0 glucosamine sulfate 2KCl 1,000 MG tablet 500 mg PO BID RF: 0 cyanocobalamin (vitamin B-12) [Vitamin B-12] 100 MCG tablet 100 mcg PO DAILY RF: 0 sennosides-docusate sodium [Senna-S] 1 EACH tablet 2 ea PO BID RF: 0 ascorbic acid (vitamin C) [Vitamin C] 500 MG tablet 500 mg PO BID RF: 0 nitroglycerin [Nitrostat] 0.4 MG tablet, sublingual 0.4 mg Sublingual DIRECTED PRNRF: 0 ergocalciferol (vitamin D2) [Vitamin D2] 50,000 UNITS capsule 50,000 units PO DIRECTED RF: 0 zolpidem 10 MG tablet 10 mg PO HS PRN PRNRF: 0 metoprolol tartrate 25 mg Tablet 25 mg PO TID RF: 0 ciprofloxacin HCl 500 mg Tablet 500 mg PO BID Qty: 10 RF: 0 Discharge Instructions Activity:: As per PT/OT Equipment/Supplies:: No Equipment Needed Diet:: Heart Healthy Discharge Orders Discharge Orders: Discharge Order (Routine); Ordered 10/05/18 Ordered By: Seven Wells DS: Data Vitals/I&O Vitals and I&O: Vital Signs Temperature 37.5 C 10/05/18 07:20 Temperature Source Tympanic 10/05/18 07:20 Pulse 89 10/05/18 07:20 Pulse Rhythm Irregular 10/05/18 01:50 Pulse 127 H 09/22/18 10:00 Respiratory Rate 18 10/05/18 07:20 Respiratory Effort 10/05/18 01:50 Respiratory Depth Normal 10/05/18 01:50 Respiratory Pattern Normal 10/05/18 01:50 Blood Pressure 104/63 10/05/18 07:20 Blood Pressure Mean 61 09/22/18 10:00 Blood Pressure Position Supine 09/21/18 18:30 Pulse Oximetry 92 L 10/05/18 07:20 Oxygen Delivery Method Cpap 10/05/18 07:20 Oxygen Flow Rate 0 10/04/18 16:43 Fraction of Inspired Oxygen (FIO2) 24 09/29/18 07:35 Pain Level 7 10/05/18 09:35 Comment 10/04/18 01:53 Intake & Output 10/04/18 10/05/18 10/05/18 23:59 11:59 23:59 Intake Total 890 / 890 395 / 395 Output Total 650 / 650 Balance 890 / 890 -255 / -255 Weight 128.3 kg Intake: IV 270 / 270 Oral 620 / 620 390 / 390 Injectate 5 / 5 Right Biliary Drainage Bag 5 / 5 Output: Drainage 0 / 0 Right Biliary Drainage Bag 0 / 0 Urine 650 / 650 Other: Urine Color Dark Alejandra Urine Appearance Clear Cloudy Stool Size Large Stool Characteristics Soft Brown Labs on day of discharge: Labs from last 24 hours 10/05/18 10/05/18 10/05/18 06:44 06:44 06:44 WBC 6.67 RBC 2.91 L Hgb 9.4 L Hct 32.1 L MCV 110.3 H MCH 32.3 MCHC 29.3 L RDW 14.2 Plt Count 149 MPV 11.0 Immature Gran % 0.1 Neutrophils % 34.8 Lymphocytes % 11.2 Monocytes % 5.4 Eosinophils % 47.8 Basophils % 0.7 Absolute Neutrophils 2.31 Absolute Lymphocytes 0.75 L Absolute Monocytes 0.36 Absolute Eosinophils 3.19 H Absolute Basophils 0.05 Differential Comment Agrees w/ instrument RBC Morphology See below Polychromasia Present Macrocytosis 2+ Stomatocytes 2+ Sodium 139 Potassium 4.5 Chloride 105 Carbon Dioxide 33.3 H Anion Gap 0.7 L BUN 6 L Creatinine 0.53 L Estimated GFR/1.73 m2 >= 60.00 Glucose 92 Calcium 8.2 L Magnesium 1.8 Total Bilirubin 1.8 H Conjugated Bilirubin 1.41 H AST 63 H ALT 44 Alkaline Phosphatase 981 H Total Protein 4.4 L Albumin 1.8 L Path Cons Comment Pending Preliminary micro results at discharge 09/27/18 15:05 Body Fluid Culture - Preliminary Peritoneal Enterococcus Faecium Jak Albicans PFSH Morbid obesity with BMI of 45.0-49.9, adult (Chronic) Depression (Chronic) History of DVD (Chronic) DJD (degenerative joint disease) (Chronic) History of PSVT (paroxysmal supraventricular tachycardia) (Chronic) Chronic back pain (Chronic) Bilateral cataracts (Chronic) Paroxysmal atrial fibrillation (Chronic) Diastolic heart failure (Chronic) Atrial fibrillation (Chronic) Right heart failure with reduced right ventricular function (Chronic) STACEY (obstructive sleep apnea) (Chronic) ADD (attention deficit disorder) Angina at rest Asthma Atrial fibrillation Breast cancer Chest pain, atypical Chronic pain Chronic rhinitis Cirrhosis of liver Compression fracture of spine Decreased visual acuity Depression Diastolic heart failure GI (gastrointestinal bleed) Gastric bypass status for obesity History of paroxysmal supraventricular tachycardia Hx of deep venous thrombosis Hyperparathyroidism , secondary, non-renal Hypertension IBS (irritable bowel syndrome) Insomnia Morbid obesity STACEY (obstructive sleep apnea) Osteoarthritis Osteopenia Oxygen dependent PUD (peptic ulcer disease) Pulmonary HTN Superficial thrombophlebitis Tricuspid regurgitation History of biliary T-tube placement (Resolved 09/01/18) Breast, Mastectomy EGD - MAC Gastric Bypass
--- NOTE | 2018-10-05 12:43 | DSE_ITS ---
Date of service: 10/05/18 Time of Service: 12:39 DS: Diagnosis Discharge Diagnosis (1) Sepsis: Status: Acute (2) Hypotension: Status: Acute (3) Hematobilia: Status: Acute (4) Advanced directives, counseling/discussion: Status: Acute Discharge Plan Disposition Patient Disposition: HOME W/HOME HEALTH SERVICE Condition: Serious Discharge Details Reason For Visit: ABNORMAL LFTS, AFIB Admit Date/Time: 09/21/18 15:36 Admit Provider: Seven Wells Attending Provider: Seven Wells Primary Care Provider: Sera Gutiérrez Hospital Course Hospital Course: CC: Hematobilia, Hypotension HPI: 62 year old woman with a prior medical history of ascending cholangitis with septic shock s/p biliary drain, [place] [facility] [place], readmitted for hematobilia, hypotension, and sepsis. Ms. Watson has a prior history of morbid obesity, Breast Ca, CAD, COPD, STACEY, PHTN with severe TR, and GERD. She was [place] [facility] [place] 09/09/2018 with a diagnosis of Ascending Cholangitis and UTI with resultant septic shock, treated with IV Antibiotics and sent home on Cipro and Flagyl that she completed. She also had a biliary drain placed during that hospitalization. Since then she has been admitted and treated for intermittent hematobilia with clots and elevated LFTs, as well as sepsis, likely due to recurrence of ascending cholangitis. She has had numerous imaging as well as blood, urinary, and biliary cultures.She has remained on broad spectrum antibiotic therapy. She has also gone back to [facility] [place] and intervention of the biliary drain. Has also been evaluated by local surgery. Despite broad spectrum antibiotic therapy and IR intervention on the biliary drain she has continued bleeding, clots, fever, and hypotension. The patient also previously adamantly refused transfer to a tertiary center, and declared her wishes to become DNR/ DNI. She opted out of all treatment modalities, and wished to return home with Hospice. However, she then changed her mind and wished for full treatment but without transfer. She is currently again refusing transfer, despite ongoing hematobilia and fevers. She had requested Hospice Care, but is now no longer interested. She had another fever yesterday evening. Hospital Course: (1) Sepsis: Potentially due to recurrent ascending cholangitis with obstruction of biliary drain. Ms. Watson is s/p interrogation of drain with [place] [facility] [place], now again bleeding with continued fevers. She continues to refuse transfer to any tertiary center, and is in fact refusing any further intervention at any facility, but continues to wish for antibiotic therapy. Multiple in-depth discussions were held regarding the futility of her current decision, especially since she is now again not wishing for palliative or hospice care. Discussed that she continues to be febrile despite broad spectrum antibiotic therapy, and without further intervention that is not available at this local hospital she will not improve, and will in fact deteriorate. Ms. Watson has undergone extensive testing, had surgical consultation, and biliary drain intervention. She remains on broad spectrum and appropriate antibiotic coverage. As per surgical consult only available option locally is for an open CBD exploration involving considerable morbidity and mortality given her multiple and significant comorbidities - without access to Interventional Radiology there are no other options here, and the patient as previously stated continues to refuse transfer. Held another in-depth conversation today - patient understands that if she refuses transfer and appropriate care the end result may be significant illness and even . She is adamant about leaving the hospital and again expressed this wish today. It was explained that if she changed her mind in the future she could be significantly more ill, and we would very likely NOT admit the patient locally as there is no further treatment options here, but instead transfer to a tertiary center her upon presentation to the ED. She states that she is quite intent on not pursuing further care, and wishes to return home. Of note, the patient is also demanding that her knees be injected by ortho prior to leaving the hospital - Dr. Marino has been consulted. She has now received Vancomycin for 12 days, Meropenem for 9, and Flagyl for 8. Will complete a course of antibiotics again for 14 days despite likely futility of this. Also recommended strongly that patient follow-up with GI at [facility] [place], but she is not interested, and did not wish for us to initiate follow-up scheduling for her. She will be discharged with home health for VNA, PT, and OT. (2) Hypotension: Hypotension confirmed by arterial line originally. Initially likely due to sepsis in patient with underlying hypotension at baseline, currently with significant hypoalbuminemia that is worsening. Current bp is low but stable and acceptable. (3) Urinary tract infection: Urinalysis from 09/19 and 09/21 with evidence of infection with large Leukocyte Esterase, and >50 WBCs, but culture with >100,000 of mixed gram positive alvarado, Aerococcus Urinae which is likely not pathologic and easily treated per ID. Also with growth of jak albicans. Review of patient's prior Urine Culture results from 08/30/2018, 09/2017, 05/2017, and 10/2016 all with growth of E.Coli sensitive to Fluoroquinolone therapy. Unclear if patient had a true UTI or colonization. E. coli present on cx from has been treated. E. Faecium on cx from 09/25 was not in sufficient quantities and is being adequately covered with vancomycin. Gao cath replaced ; repeat urine C&S with jak albicans 10,000-50,000 CFU which is most likely colonization and not an active infection. (4) Hematobilia: Initial admission from 09/18 with complete resolution of bleeding and improvement/normalization of LFTs back to baseline without intervention. Had been scheduled for transfer [place] [facility] [place] but refused - however, both bleeding and abnormal liver tests had resolved and normalized without intervention prior to rebleeding and repeat clots. She had undergone a transfer for IR intervention and return on same day without resolution. The patient is refusing transfer back to [facility] [place] as stated above. (5) STACEY (obstructive sleep apnea): Continue CPAP therapy. (6) Right heart failure with reduced right ventricular function: Stable and asymptomatic. Latest echo with moderate pulmonary hypertension. Tolerating IV fluid. Monitor volume/respiratory status. (7) Paroxysmal atrial fibrillation: Continue metoprolol. Not on anticoagluation. (8) DVT prophylaxis: Maintained on SC Lovenox despite hematobilia due to high risk for DVT as well as relatively stable hemoglobin. (9) Advanced directives, counseling/discussion: DNR/DNI Home Meds and New Rx's Prescriptions: New metronidazole [Flagyl] 500 mg tablet 500 mg PO TID Qty: 9 RF: 0 Continue sertraline [Zoloft] 50 MG tablet 100 mg PO DAILY RF: 0 clonazepam 1 MG tablet,disintegrating 2 tab PO HS RF: 0 loperamide [Imodium A-D] 2 MG capsule 2 mg PO QID PRN (Reason: Diarrhea) RF: 0 oxycodone-acetaminophen [Percocet] 1 EACH tablet 1 ea PO QID RF: 0 methylphenidate HCl 10 MG tablet 10 mg PO BID RF: 0 nystatin (bulk) 1 EACH powder 1 ea Miscellaneous TID RF: 0 ipratropium-albuterol 3 ML solution for nebulization 3 ml Inhalation QID RF: 0 acetaminophen 500 MG tablet 1,000 mg PO Q6H PRN RF: 0 naloxone [Narcan] 4 MG spray,non-aerosol 4 mg NS as directed 1 Days Qty: 2 RF: 0 lorazepam 0.5 MG tablet 0.5 mg PO QID PRNRF: 0 pantoprazole 40 MG tablet,delayed release (DR/EC) 40 mg PO DAILY RF: 0 albuterol sulfate [ProAir HFA] 200 PUFF HFA aerosol inhaler 2 puff Inhalation .Q4-6H PRN PRNRF: 0 cyclobenzaprine 10 MG tablet 10 mg PO BID RF: 0 calcium carbonate-vitamin D3 1 EACH tablet 2 tab PO BID RF: 0 ferrous sulfate 325 MG tablet 325 mg PO DAILY RF: 0 dicyclomine 10 MG capsule 10 mg PO BID RF: 0 loratadine 10 MG tablet 10 mg PO DAILY PRNRF: 0 fluticasone-salmeterol [Advair HFA] 60 PUFF HFA aerosol inhaler 2 puff Inhalation BID RF: 0 anastrozole [Arimidex] 1 MG tablet 1 mg PO DAILY RF: 0 glucosamine sulfate 2KCl 1,000 MG tablet 500 mg PO BID RF: 0 cyanocobalamin (vitamin B-12) [Vitamin B-12] 100 MCG tablet 100 mcg PO DAILY RF: 0 sennosides-docusate sodium [Senna-S] 1 EACH tablet 2 ea PO BID RF: 0 ascorbic acid (vitamin C) [Vitamin C] 500 MG tablet 500 mg PO BID RF: 0 nitroglycerin [Nitrostat] 0.4 MG tablet, sublingual 0.4 mg Sublingual DIRECTED PRNRF: 0 ergocalciferol (vitamin D2) [Vitamin D2] 50,000 UNITS capsule 50,000 units PO DIRECTED RF: 0 zolpidem 10 MG tablet 10 mg PO HS PRN PRNRF: 0 metoprolol tartrate 25 mg Tablet 25 mg PO TID RF: 0 ciprofloxacin HCl 500 mg Tablet 500 mg PO BID Qty: 10 RF: 0 Discharge Instructions Activity:: As per PT/OT Equipment/Supplies:: No Equipment Needed Diet:: Heart Healthy Discharge Orders Discharge Orders: Discharge Order (Routine); Ordered 10/05/18 Ordered By: Seven Wells DS: Data Vitals/I&O Vitals and I&O: Vital Signs Temperature 37.5 C 10/05/18 07:20 Temperature Source Tympanic 10/05/18 07:20 Pulse 89 10/05/18 07:20 Pulse Rhythm Irregular 10/05/18 01:50 Pulse 127 H 09/22/18 10:00 Respiratory Rate 18 10/05/18 07:20 Respiratory Effort 10/05/18 01:50 Respiratory Depth Normal 10/05/18 01:50 Respiratory Pattern Normal 10/05/18 01:50 Blood Pressure 104/63 10/05/18 07:20 Blood Pressure Mean 61 09/22/18 10:00 Blood Pressure Position Supine 09/21/18 18:30 Pulse Oximetry 92 L 10/05/18 07:20 Oxygen Delivery Method Cpap 10/05/18 07:20 Oxygen Flow Rate 0 10/04/18 16:43 Fraction of Inspired Oxygen (FIO2) 24 09/29/18 07:35 Pain Level 7 10/05/18 09:35 Comment 10/04/18 01:53 Intake & Output 10/04/18 10/05/18 10/05/18 23:59 11:59 23:59 Intake Total 890 / 890 395 / 395 Output Total 650 / 650 Balance 890 / 890 -255 / -255 Weight 128.3 kg Intake: IV 270 / 270 Oral 620 / 620 390 / 390 Injectate 5 / 5 Right Biliary Drainage Bag 5 / 5 Output: Drainage 0 / 0 Right Biliary Drainage Bag 0 / 0 Urine 650 / 650 Other: Urine Color Dark Alejandra Urine Appearance Clear Cloudy Stool Size Large Stool Characteristics Soft Brown Labs on day of discharge: Labs from last 24 hours 10/05/18 10/05/18 10/05/18 06:44 06:44 06:44 WBC 6.67 RBC 2.91 L Hgb 9.4 L Hct 32.1 L MCV 110.3 H MCH 32.3 MCHC 29.3 L RDW 14.2 Plt Count 149 MPV 11.0 Immature Gran % 0.1 Neutrophils % 34.8 Lymphocytes % 11.2 Monocytes % 5.4 Eosinophils % 47.8 Basophils % 0.7 Absolute Neutrophils 2.31 Absolute Lymphocytes 0.75 L Absolute Monocytes 0.36 Absolute Eosinophils 3.19 H Absolute Basophils 0.05 Differential Comment Agrees w/ instrument RBC Morphology See below Polychromasia Present Macrocytosis 2+ Stomatocytes 2+ Sodium 139 Potassium 4.5 Chloride 105 Carbon Dioxide 33.3 H Anion Gap 0.7 L BUN 6 L Creatinine 0.53 L Estimated GFR/1.73 m2 >= 60.00 Glucose 92 Calcium 8.2 L Magnesium 1.8 Total Bilirubin 1.8 H Conjugated Bilirubin 1.41 H AST 63 H ALT 44 Alkaline Phosphatase 981 H Total Protein 4.4 L Albumin 1.8 L Path Cons Comment Pending Preliminary micro results at discharge 09/27/18 15:05 Body Fluid Culture - Preliminary Peritoneal Enterococcus Faecium Jak Albicans PFSH Morbid obesity with BMI of 45.0-49.9, adult (Chronic) Depression (Chronic) History of DVD (Chronic) DJD (degenerative joint disease) (Chronic) History of PSVT (paroxysmal supraventricular tachycardia) (Chronic) Chronic back pain (Chronic) Bilateral cataracts (Chronic) Paroxysmal atrial fibrillation (Chronic) Diastolic heart failure (Chronic) Atrial fibrillation (Chronic) Right heart failure with reduced right ventricular function (Chronic) STACEY (obstructive sleep apnea) (Chronic) ADD (attention deficit disorder) Angina at rest Asthma Atrial fibrillation Breast cancer Chest pain, atypical Chronic pain Chronic rhinitis Cirrhosis of liver Compression fracture of spine Decreased visual acuity Depression Diastolic heart failure GI (gastrointestinal bleed) Gastric bypass status for obesity History of paroxysmal supraventricular tachycardia Hx of deep venous thrombosis Hyperparathyroidism , secondary, non-renal Hypertension IBS (irritable bowel syndrome) Insomnia Morbid obesity STACEY (obstructive sleep apnea) Osteoarthritis Osteopenia Oxygen dependent PUD (peptic ulcer disease) Pulmonary HTN Superficial thrombophlebitis Tricuspid regurgitation History of biliary T-tube placement (Resolved 09/01/18) Breast, Mastectomy EGD - MAC Gastric Bypass
--- NOTE | 2018-10-05 12:47 | PDOC.CMDIS ---
- If Service Date Differs Date of service: 10/05/18 Time of Service: 12:47 LACE Index Scoring Tool - Questions: Length of Stay (in days): 14 or more Acuity (Admit via E.D.?): Yes Comorbidities: Congestive Heart Failure E.D. Visits: 7 - Answers: Total Score: 16 Risk of Readmission: High Risk Care Management Discharge Reason for Hospitalization: Hematobilia, UTI Discharge Plan: MICHAEL spoke with Prema and her friend at length this morning in regards to DC plans. Discussed Hospice, and Prema states that she would still want to receive treatment and to be hospitalized if she became ill. Due to this CM discussed home health services which Prema is receptive to. Prema will return home today with home health RN/PT/OT services. MICHAEL has notified RAJ Vazquez, of the above. Prema will transport via [facility] ambulance which has been arranged for 1400, MICHAEL notified and Mirna, secretary of state, of time and mode of transportation. Prema will F/U with PCP and plan of care as prescribed. Patient/Family Education Needs: Review DC instructions, any limitations, and discuss 'Ask Me Three' Services Needed at Discharge: Home Health Care Services (RN/PT/OT), Transportation ([facility])
--- NOTE | 2018-10-05 12:53 | CMDISCH_ITS ---
- If Service Date Differs Date of service: 10/05/18 Time of Service: 12:47 LACE Index Scoring Tool - Questions: Length of Stay (in days): 14 or more Acuity (Admit via E.D.?): Yes Comorbidities: Congestive Heart Failure E.D. Visits: 7 - Answers: Total Score: 16 Risk of Readmission: High Risk Care Management Discharge Reason for Hospitalization: Hematobilia, UTI Discharge Plan: MICHAEL spoke with Prema and her friend at length this morning in regards to DC plans. Discussed Hospice, and Prema states that she would still want to receive treatment and to be hospitalized if she became ill. Due to this CM discussed home health services which Prema is receptive to. Prema will return home today with home health RN/PT/OT services. MICHAEL has notified RAJ Vazquez, of the above. Prema will transport via [facility] ambulance which has been arranged for 1400, MICHAEL notified and Mirna, psychiatric secretary, of time and mode of transportation. Prema will F/U with PCP and plan of care as prescribed. Patient/Family Education Needs: Review DC instructions, any limitations, and discuss 'Ask Me Three' Services Needed at Discharge: Home Health Care Services (RN/PT/OT), Transportation ([facility])
--- NOTE | 2018-10-05 13:02 | HHF2F_ITS ---
1. Encounter Date and Reason I certify that CHANTELLE DAIGLE was seen by Seven Wells on 10/05/18 and that I had a [id number] encounter with this patient that meets the physician face to face encounter requirements. 2. Clinical Findings Supporting Skilled Need and Homebound Status I certify that home health services are medically necessary, include either intermittent fpc and/or physical/speech therapy, and that this patient is homebound in that absences from the home require considerable and taxing effort and are infrequent or of short duration, or are attributable to the need to receive medical care. [X] (a) Attached documentation from encounter provides clinical findings supporting skilled need and homebound status (including what assistance patient requires to leave the home). The encounter with the patient was in whole, or in part, for the following medical condition, which is the primary reason for home health care: ABNORMAL LFTS, AFIB Long-Term: Please Note: The patient has continued bleeding and clotting in her biliary drain, along with continued low blood pressures and fevers despite broad spectrum antibiotics and intervention on her biliary drain. This has been ongoing on a daily basis. She requires further care and intervention at [facility] or other tertiary center - however is adamantly refusing. Currently without any further intervention possible locally unless she is amenable to transfer to outside institution. Physical Therapy/Occupational Therapy: Weakness secondary to prolonged hospitalization. Speech Therapy: Homebound: 3. Certification and Authentication I certify that I composed the above information based on my clinical judgement relating to this patient's medical condition and, if applicable, clinical findings communicated to me by the NPP or inpatient physician who performed the Home Health Referral. All further orders will be obtained through (Community Based Physician - PCP)
--- NOTE | 2018-10-05 13:59 | PT.INDS ---
Date of service: 10/05/18 Time of Service: 13:21 PT Notes Inpatient Physical Therapy Discharge Summary Date: 10/05/18 Dates of Service: 10/01/18-10/05/18 SUBJECTIVE: Pt stating she would like to try standing at edge of bed today, I got the shots in my knees so I would like to try to stand. OBJECTIVE: BED MOBILITY/TRANSFERS: rolling: max A with use of bed pad Supine-sit: HOB 0degrees and railing, independent Sit-stand: 2 attempts with bariatric FWW, pt unable to get to standing Bed-chair: unable Sit-supine: HOB flat, Cesar for LE's, patient unable to lift legs into bed GAIT: unable BALANCE: Static sitting: normal Dynamic Sitting: normal Static Standing: unable Dynamic Standing:unable ASSESSMENT: : Pt is a 61 yr old female admitted with hematobilia, urinary tract infection, hypotension in setting of obesity, chronic pain, bilateral knee contractures and bilateral osteoarthritis of the knees, chronic obstructive pulmonary disease and asthma, congestive heart failure and wheelchair bound mobility. Patient was seen for 3 PT visits, pt did not make progress with therapy intervention due to short duration of treatment, pt's refusal to participate in activities and pt's deconditioning and weakness. Pt's currently functional status is bedbound, able to sit at edge of bed, unable to stand due to knee OA and weakness. Pt would benefit from jail care facility for rehab, however she refuses to transfer to SNF, so patient is being discharged to home today. Home PT is recommended for strengthening and progressive mobility training. GOALS Goals x1 week 1. Supine-sit: HOB 30 degrees independent 2. Sit-Supine HOB flat, SBA with use of leg care asst 3. Sit-Stand: CGA with bariatric FWW 4. Stand-sit: SBA 5. Bed-chair: CGA with bariatric FWW 6. Chair-bed: CGA with bariatric FWW Pt met goals # 1 - recommend continued PT to meet remaining goals DISCHARGE RECOMMENDATIONS Recommend long-term care facility for rehab. Pt is being discharged to home with home PT recommended TREATMENT TIME/MINUTES/CODES 25 min TAx2 1320 G codes in the area of mobility,walking and moving around: GP [id number] projected status, GP [id number] discharge status Melyssa Shah PT
--- NOTE | 2018-10-05 14:08 | INDS_ITS ---
Date of service: 10/05/18 Time of Service: 13:21 PT Notes Inpatient Physical Therapy Discharge Summary Date: 10/05/18 Dates of Service: 10/01/18-10/05/18 SUBJECTIVE: Pt stating she would like to try standing at edge of bed today, I got the shots in my knees so I would like to try to stand. OBJECTIVE: BED MOBILITY/TRANSFERS: rolling: max A with use of bed pad Supine-sit: HOB 0degrees and railing, independent Sit-stand: 2 attempts with bariatric FWW, pt unable to get to standing Bed-chair: unable Sit-supine: HOB flat, Cesar for LE's, patient unable to lift legs into bed GAIT: unable BALANCE: Static sitting: normal Dynamic Sitting: normal Static Standing: unable Dynamic Standing:unable ASSESSMENT: : Pt is a 61 yr old female admitted with hematobilia, urinary tract infection, hypotension in setting of obesity, chronic pain, bilateral knee contractures and bilateral osteoarthritis of the knees, chronic obstructive pulmonary disease and asthma, congestive heart failure and wheelchair bound mobility. Patient was seen for 3 PT visits, pt did not make progress with therapy intervention due to short duration of treatment, pt's refusal to participate in activities and pt's deconditioning and weakness. Pt's currently functional status is bedbound, able to sit at edge of bed, unable to stand due to knee OA and weakness. Pt would benefit from senior care care facility for rehab, however she refuses to transfer to SNF, so patient is being discharged to home today. Home PT is recommended for strengthening and progressive mobility training. GOALS Goals x1 week 1. Supine-sit: HOB 30 degrees independent 2. Sit-Supine HOB flat, SBA with use of leg buyer agent 3. Sit-Stand: CGA with bariatric FWW 4. Stand-sit: SBA 5. Bed-chair: CGA with bariatric FWW 6. Chair-bed: CGA with bariatric FWW Pt met goals # 1 - recommend continued PT to meet remaining goals DISCHARGE RECOMMENDATIONS Recommend long-term care facility for rehab. Pt is being discharged to home with home PT recommended TREATMENT TIME/MINUTES/CODES 25 min TAx2 1320 G codes in the area of mobility,walking and moving around: GP [id number] projected status, GP [id number] discharge status Melyssa Shah PT
--- NOTE | 2018-10-05 14:10 | PGE_ITS ---
Date of Service Date of service: 10/05/18 Time of Service: 14:13 Subjective Interval history since last seen: This is an addendum to patient's discharge summary from 10/05/2018: Prior to discharge patient's case was again discussed with GI at [facility] [place] in detail - agreed that without transfer and potential repeat intervention via IR vs. possible ERCP there are no other options for treatment currently. Also discussed case informally with psychiatry who agrees with no further intervention possible from a psychiatric viewpoint. The patient is competent, oriented, and able to make own decisions by current and former evaluations. Options have been explained to her in detail, and she is making an informed decision. Objective Objective Clinical Data: Abnormal lab results 10/05/18 10/05/18 10/05/18 Range/Units 06:44 06:44 06:44 RBC 2.91 L (4.00-5.20) m/cumm Hgb 9.4 L (12.0-15.5) g/dL Hct 32.1 L (36.0-46.0) % MCV 110.3 H (80-95) fL MCHC 29.3 L (32.0-36.0) g/dL Absolute Lymphocytes 0.75 L (1.2-3.4) k/cumm Absolute Eosinophils 3.19 H (0.0-0.7) k/cumm Carbon Dioxide 33.3 H (21.0-32.0) mmol/L Anion Gap 0.7 L (3-11) mmol/L BUN 6 L (7-18) mg/dL Creatinine 0.53 L (0.55-1.02) mg/dL Calcium 8.2 L (8.5-10.1) mg/dL Total Bilirubin 1.8 H (0.2-1.0) mg/dL Conjugated Bilirubin 1.41 H (0.00-0.20) mg/dL AST 63 H (15-37) U/L Alkaline Phosphatase 981 H (46-116) U/L Total Protein 4.4 L (6.4-8.2) g/dL Albumin 1.8 L (3.4-5.0) g/dL Vital Signs Temperature 37.5 C 10/05/18 07:20 Temperature Source Tympanic 10/05/18 07:20 Pulse 89 10/05/18 07:20 Pulse Rhythm Irregular 10/05/18 01:50 Pulse 127 H 09/22/18 10:00 Respiratory Rate 18 10/05/18 07:20 Respiratory Effort 10/05/18 01:50 Respiratory Depth Normal 10/05/18 01:50 Respiratory Pattern Normal 10/05/18 01:50 Blood Pressure 104/63 10/05/18 07:20 Blood Pressure Mean 61 09/22/18 10:00 Blood Pressure Position Supine 09/21/18 18:30 Pulse Oximetry 92 L 10/05/18 07:20 Oxygen Delivery Method Cpap 10/05/18 07:20 Oxygen Flow Rate 0 10/04/18 16:43 Fraction of Inspired Oxygen (FIO2) 24 09/29/18 07:35 Pain Level 4 10/05/18 13:29 Comment 10/04/18 01:53 Intake & Output 10/04/18 10/05/18 10/05/18 23:59 11:59 23:59 Intake Total 890 / 890 395 / 395 Output Total 650 / 650 Balance 890 / 890 -255 / -255 Weight 128.3 kg Intake: IV 270 / 270 Oral 620 / 620 390 / 390 Injectate 5 / 5 Right Biliary Drainage Bag 5 / 5 Output: Drainage 0 / 0 Right Biliary Drainage Bag 0 / 0 Urine 650 / 650 Other: Urine Color Dark Alejandra Urine Appearance Clear Cloudy Stool Size Large Stool Characteristics Soft Brown Laboratory Results WBC 6.67 k/cumm (4.4-10.8) 10/05/18 06:44 RBC 2.91 m/cumm (4.00-5.20) L 10/05/18 06:44 Hgb 9.4 g/dL (12.0-15.5) L 10/05/18 06:44 Hct 32.1 % (36.0-46.0) L 10/05/18 06:44 MCV 110.3 fL (80-95) H 10/05/18 06:44 MCH 32.3 pg (27.0-33.0) 10/05/18 06:44 MCHC 29.3 g/dL (32.0-36.0) L 10/05/18 06:44 RDW 14.2 % (11.7-14.6) 10/05/18 06:44 Plt Count 149 x1000/uL (130-400) 10/05/18 06:44 MPV 11.0 fL (8.0-11.0) 10/05/18 06:44 Abs Immat Gran (auto) Cancelled 10/03/18 07:00 Immature Gran % 0.1 10/05/18 06:44 Neutrophils % 34.8 10/05/18 06:44 Lymphocytes % 11.2 10/05/18 06:44 Monocytes % 5.4 10/05/18 06:44 Eosinophils % 47.8 10/05/18 06:44 Basophils % 0.7 10/05/18 06:44 Absolute Neutrophils 2.31 k/cumm (1.2-6.7) 10/05/18 06:44 Band Neutrophils Cancelled 10/03/18 07:00 Absolute Lymphocytes 0.75 k/cumm (1.2-3.4) L 10/05/18 06:44 Absolute Monocytes 0.36 k/cumm (0.11-0.7) 10/05/18 06:44 Absolute Eosinophils 3.19 k/cumm (0.0-0.7) H 10/05/18 06:44 Absolute Basophils 0.05 k/cumm (0.0-0.2) 10/05/18 06:44 Metamyelocytes Cancelled 10/03/18 07:00 Myelocytes Cancelled 10/03/18 07:00 Promyelocytes Cancelled 10/03/18 07:00 Nucleated RBCs Cancelled 10/03/18 07:00 Differential Comment Agrees w/ instrument 10/05/18 06:44 Atypical Lymphocytes Cancelled 10/03/18 07:00 Other Cell Type Cancelled 10/03/18 07:00 RBC Morphology See below 10/05/18 06:44 Polychromasia Present 10/05/18 06:44 Hypochromasia 1+ 10/04/18 05:40 Poikilocytosis Cancelled 10/03/18 07:00 Basophilic Stippling Present 10/02/18 06:33 Anisocytosis Cancelled 10/03/18 07:00 Microcytosis Cancelled 10/03/18 07:00 Macrocytosis 2+ 10/05/18 06:44 Spherocytes Cancelled 10/03/18 07:00 Target Cells Cancelled 10/03/18 07:00 Tear Drop Cells Cancelled 10/03/18 07:00 Ovalocytes Cancelled 10/03/18 07:00 Stomatocytes 2+ 10/05/18 06:44 Cleary-Mccloud Bodies Cancelled 10/03/18 07:00 Shipman Cells Cancelled 10/03/18 07:00 Acanthocytes (Spur) Cancelled 10/03/18 07:00 Schistocytes Cancelled 10/03/18 07:00 ESR 56 MM/HR (0-30) H 09/27/18 06:30 PT 9.8 sec (9.3-10.8) 09/27/18 06:30 INR 1.0 (1.0-3.5) 09/27/18 06:30 Sodium 139 mmol/L (136-145) 10/05/18 06:44 Potassium 4.5 mmol/L (3.5-5.1) 10/05/18 06:44 Chloride 105 mmol/L (98-107) 10/05/18 06:44 Carbon Dioxide 33.3 mmol/L (21.0-32.0) H 10/05/18 06:44 Anion Gap 0.7 mmol/L (3-11) L 10/05/18 06:44 BUN 6 mg/dL (7-18) L 10/05/18 06:44 Creatinine 0.53 mg/dL (0.55-1.02) L 10/05/18 06:44 Estimated GFR/1.73 m2 >= 60.00 (mL/min/1.73m2) 10/05/18 06:44 Glucose 92 mg/dL (70-100) 10/05/18 06:44 Lactate 1.0 mmol/L (0.6-1.4) 09/22/18 07:02 Calcium 8.2 mg/dL (8.5-10.1) L 10/05/18 06:44 Magnesium 1.8 mg/dL (1.8-2.4) 10/05/18 06:44 Total Bilirubin 1.8 mg/dL (0.2-1.0) H 10/05/18 06:44 Conjugated Bilirubin 1.41 mg/dL (0.00-0.20) H 10/05/18 06:44 AST 63 U/L (15-37) H 10/05/18 06:44 ALT 44 U/L (12-78) 10/05/18 06:44 Alkaline Phosphatase 981 U/L (46-116) H 10/05/18 06:44 Troponin I < 0.02 ng/mL (0.00-0.06) 09/22/18 06:45 C-Reactive Protein 2.73 mg/dL (0.0-0.3) H 10/02/18 06:33 Total Protein 4.4 g/dL (6.4-8.2) L 10/05/18 06:44 Albumin 1.8 g/dL (3.4-5.0) L 10/05/18 06:44 Cortisol 6 ug/dL 09/25/18 06:50 Urine Color Yellow (Yellow) 09/25/18 14:20 Urine Clarity Cloudy 09/25/18 14:20 Urine pH 6.0 (5-8) 09/25/18 14:20 Ur Specific [place] >= 1.030 (1.005-1.025) H 09/25/18 14:20 Urine Protein 100 mg/dL (Negative) H 09/25/18 14:20 Urine Ketones Trace mg/dL (Negative) H 09/25/18 14:20 Urine Blood Trace-intact (Negative) H 09/25/18 14:20 Urine Nitrite Negative (Negative) 09/25/18 14:20 Urine Bilirubin Negative (Negative) 09/25/18 14:20 Urine Urobilinogen 0.2 EU/dL (Up TO 0.2) 09/25/18 14:20 Ur Leukocyte Esterase Small (Negative) H 09/25/18 14:20 Urine RBC Not Applicable 09/25/18 14:20 Urine WBC >50 HPF (0-5) 09/25/18 14:20 Ur Epithelial Cells Not Applicable 09/25/18 14:20 Urine Crystals Not Applicable 09/25/18 14:20 Urine Bacteria Many HPF (Negative) 09/25/18 14:20 Urine Casts Negative LPF (Negative) 09/21/18 16:00 Urine Mucus Not Applicable 09/25/18 14:20 Urine Other Moderate yeast (Negative) 09/25/18 14:20 Ur Culture Indicated? Yes 09/25/18 14:20 Urine Glucose Negative mg/dL (Negative) 09/25/18 14:20 Vancomycin Trough 18.4 ug/mL (10.0-20.0) 10/02/18 17:20 Path Cons Comment See comment 09/26/18 07:20 Patient ABO/Rh Cancelled 10/03/18 11:00 Crossmatch See Detail 10/03/18 11:00
--- NOTE | 2018-10-06 09:15 | OT.INDS ---
Date of service: 10/06/18 Time of Service: 09:15 Occupational Therapy Notes Occupational Therapy Inpatient Discharge Summary Date: 10/06/18 for 10/05/18 Dates of Service: 10/01/18-10/05/18 SUBJECTIVE: NT OBJECTIVE: Dates of Service: 10/01/18-10/05/18 FUNCTIONAL MOBILITY/ADLS: Rolling L/R: (I) min vc BATHING in hospital setting Upper Body: (I) washing face, (B) shoulders and abdomen. Max (A) back. Lower Body: (I) upper thighs, Max (A) (B) feet and below the knees. DRESSING in hospital setting Upper body: Min (A) donning hospital gown with min vc Lower Body: Max (A) ASSESSMENT: : Patient is a 62-year-old female referred to occupational therapy services with diagnosis of abnormal LFTs in setting of UTI, diastolic heart failure, atrial fibrilation, obstructive sleep apnea, hypotension, ascending cholanitis, morbid obesity, breast cancer, CAD, COPD, STACEY, PHTN, GERD. Pt was seen for 2 OT sessions. She was not receptive to education and training in short duration OT. She also was not compliant with functional activities. Pt did not make much progress during OT sessions due to refusals throughout OT session. OT recommends that pt go to LTC however pt refuses. Pt was discharged home on 10/05/18. OT recommends that pt have home OT services for increased (I) in ADL/IADL routines. GOALS 1. Dressing (I) with donning hospital gown, Mod (I) with donning and doffing (B) LE socks with use of sock aid and finger grip machine operator. 2. Bathing sitting on side of the bed pt will be (I) with washing abdomen, and upper legs. 3. UE strength improve to 5/5 strength to increase (I) in ADL routine. 4. Pt will be (I) with (B) UE strengthening program. Pt has met goals part of goal 1 and goal 2. PLAN: Pt was discharged home on 10/05/18 OT recommends that pt go to LTC. If pt goes home OT recommends home OT. TREATMENT CODES/TIME: G Codes in the area of self- : washing oneself, toileting, dressing, eating and drinking, current status GO [id number] CK projected status GO [id number]. Discharge status GO [id number]. Based on [facility] score of 17, CMS score 50.11%. Adriana Zaragoza OTR/L
== END 2018-10-05 14:22 | disposition home health service (06) | DRG 314 ==
LOC: ER 15:53 → ICU 17:35 → MS 09-22 15:56
PROVIDERS: Internal Medicine; Admitting Provider Internal Medicine; Emergency Provider Student in an Organized Health Care Education/Training Program; PCP Family Medicine; Visit Provider Internal Medicine
DX: A41.9 Sepsis, unspecified organism; N39.0 Urinary tract infection, site not specified; B37.49 Other urogenital candidiasis; I95.9 Hypotension, unspecified; I50.32 Chronic diastolic (congestive) heart failure; N17.9 Acute kidney failure, unspecified; K83.09 Other cholangitis; T85.520A Displacement of bile duct prosthesis, initial encounter; Z68.42 Body mass index [BMI] 45.0-49.9, adult; K83.8 Other specified diseases of biliary tract; R00.0 Tachycardia, unspecified; Z51.5 Encounter for palliative care; R50.9 Fever, unspecified; E88.09 Other disorders of plasma-protein metabolism, not elsewhere classified; B96.89 Other specified bacterial agents as the cause of diseases classified elsewhere; M25.562 Pain in left knee; M25.561 Pain in right knee; E83.42 Hypomagnesemia; M17.0 Bilateral primary osteoarthritis of knee; I48.0 Paroxysmal atrial fibrillation; I50.812 Chronic right heart failure; G47.33 Obstructive sleep apnea (adult) (pediatric); Z66 Do not resuscitate; F32.9 Major depressive disorder, single episode, unspecified; I27.20 Pulmonary hypertension, unspecified; I08.2 Rheumatic disorders of both aortic and tricuspid valves; J44.9 Chronic obstructive pulmonary disease, unspecified; K21.9 Gastro-esophageal reflux disease without esophagitis; I25.10 Atherosclerotic heart disease of native coronary artery without angina pectoris; E66.01 Morbid (severe) obesity due to excess calories
CPT/HCPCS: 36415; 36569; 71275; 80048; 80053; 80076; 82533; 83690; 85652; 86850; 86900; 86901; 86920; 87040; 87077; 93005; 94640; 96360; 96361; 97110; 97163; 97167; 97530; 97535; 99222; 99232; 99233; 99239; 99255; 99285; J1650; NC; 71046; 74018; 74176; 76700; 78806; 80202; 81003; 81015; 82270; 83605; 83735; 84484; 85014; 85018; 85025; 85610; 85730; 86140; 87070; 87086; 87186; 87205; 87324; 93010; 93306; 99223; 99284; A0425; A0426; J0696; J1040; J2060; J3430; J3470; J3475; J3490; J7620

== ENCOUNTER 2018-10-20 11:22 | Emergency (ER) | payer MEDICAID, SELFPAY ==
[2018-10-20] VITALS (9 sets, daily range): BP systolic 99–109; BP diastolic 41–62; PULSE 89–102; RESP 16–28; TEMP 37.1–37.2; O2SAT 93–97
--- NOTE | 2018-10-20 11:31 | W.ED.GENAD ---
Discharge Plan Disposition Patient Disposition: [facility] Condition: Serious Discharge Details Chief Complaint: Abd Prob Clinical Impression: Hypomagnesemia, Acute hypokalemia, Cholangitis Reason For Visit: JOSE Primary Care Provider: Sera Gutiérrez ED Provider: Jeannie Julio Home Meds and New Rx's Prescriptions: No Action sertraline [Zoloft] 50 MG tablet 100 mg PO DAILY RF: 0 clonazepam 1 MG tablet,disintegrating 2 tab PO HS RF: 0 ipratropium-albuterol 3 ML solution for nebulization 3 ml Inhalation QID RF: 0 lorazepam 0.5 MG tablet 0.5 mg PO QID PRNRF: 0 pantoprazole 40 MG tablet,delayed release (DR/EC) 40 mg PO DAILY RF: 0 cyclobenzaprine 10 MG tablet 10 mg PO BID RF: 0 calcium carbonate-vitamin D3 1 EACH tablet 2 tab PO BID RF: 0 ferrous sulfate 325 MG tablet 325 mg PO DAILY RF: 0 Advair HFA 60 PUFF HFA aerosol inhaler 2 puff Inhalation BID RF: 0 anastrozole [Arimidex] 1 MG tablet 1 mg PO DAILY RF: 0 glucosamine sulfate 2KCl 1,000 MG tablet 500 mg PO BID RF: 0 Atrovent HFA 17 mcg/actuation Hfa Aerosol Inhaler 1 puff INHALATION TID RF: 0 dicyclomine [Bentyl] 10 mg/mL Solution 10 mg BID RF: 0 albuterol sulfate 2.5 mg /3 mL (0.083 %) Solution For Nebulization 2 inh Inhalation QID RF: 0 methylphenidate HCl [Ritalin] 10 mg Tablet 10 mg PO BID RF: 0 loperamide 2 mg Tablet 2 mg PO TID RF: 0 oxycodone-acetaminophen [Percocet] 5-325 mg Tablet 1 tab PO Q4H PRNRF: 0 benzonatate 100 mg Capsule 100 mg PO TID PRNRF: 0 ferrous sulfate 325 mg (65 mg iron) Tablet 325 mg PO DAILY RF: 0 triamcinolone acetonide [Kenalog] 0.147 mg/gram Aerosol 0.147 mg Topical BID RF: 0 cyanocobalamin (vitamin B-12) [Vitamin B-12] 100 MCG tablet 100 mcg PO DAILY RF: 0 ascorbic acid (vitamin C) [Vitamin C] 500 MG tablet 500 mg PO BID RF: 0 ergocalciferol (vitamin D2) [Vitamin D2] 50,000 UNITS capsule 50,000 units PO DIRECTED RF: 0 metoprolol tartrate 25 mg Tablet 25 mg PO TID RF: 0 Discharge Data Discharge Date/Time-TO BE ENTERED AT DEPARTURE: 10/20/18 15:55 Medical Decision Making Patient is a 63-year-old female presenting today with chief complaint of right upper quadrant pain. Patient has had multiple recent admissions for this right upper quadrant pain. She has known ascending cholangitis with biliary drain placement. She has been treated multiple occasions for septic shock secondary to this. He was recently admitted for hematobilia, hypotension and sepsis. Medical history includes morbid obesity, atrial fibrillation, right heart failure with reduced right ventricular function, breast cancers, CAD, COPD, STACEY, HTN, severe TR, GERD. As of recently, patient was admitted 08 [address] [facility] at which time she was diagnosed with ascending cholangitis and UTI with resultant septic shock. After having a recurrence of her symptoms, patient was admitted again here, leaving at patient request on 10/05/2018, and treated for intermittent hematobilia with clots and elevated LFTs, sepsis thought to be secondary to her recurrence of a sending cholangitis per patient has had a large amount of workups. Review of her recent admission reveals that the patient has gone back and forth between wanting to continue care versus hospice care. She is currently DNR/DNI. Patient up to this point has refused transfer to [facility] where it was recommended she undergo IR drainage versus ERCP for more definitive care. During her recent admission, patient was treated with vancomycin, meropenem and Flagyl. Advised that locally, her only surgical option is for an open CBD exploration which has higher risk of mortality given her significant comorbidities. Patient had been recommended to transfer to facility with IR capabilities however, she refused transfer and recent admission was discharged home recently with a 14-day course of antibiotics. Patient refused follow-up after leaving hospital. Patient reports that she has had home health daily. Since recent admission, patient is unclear if she had any fevers. States that she has had nausea but no vomiting. Reports no change in bowel habits. Patient has catheter placed, this is not been changed since recent admission. She reports the drainage has been intermittent from the biliary drain. States that it has been intermittently quite bloody. On exam, patient appears chronically ill. She is jaundiced, large amount of edema is noted. Lungs are clear. Abdomen is tender, particular the right upper quadrant but no peritoneal findings at this time. Drain has scant amount of bloody discharge. Urine from the [place] appears purulent. She does have a small amount of skin breakdown on her bottom. We will obtain laboratory evaluation including blood cultures, lactate, LFTs, PT/PTT. Discussed this plan the patient is in agreement. At this point, she has had a large amount of imaging and I do not know the utility of repeating this. Plan obtain imaging and consult with [facility] regarding patient's chronic abdominal pain and history of cholangitis WBC is elevated at 13, this was not elevated on recent admission. Will begin Meropenum once the cultures have been drawn. Patient was on this during recent admission and tolerated medication well. Multiple attempts have been made to attain blood cultures, having difficulty with this. Potassium is critically low at 2.7, will begin replenishing this and obtain EKG. Lactate 2.1 Magnesium 1.6. AST 121, this has not been elevated this high previously. Alk phos 1550 which is also quite high compared to the patients baseline. Bilirubin 5.2 which is also elevated from baseline EKG significant for a fib, reviewed by Dr. Conte with no acute abnormality noted. Spoke with the patients son at her request. He advised that they discussed her continued care and wishes at the beginning of the week. He advised that plan was for primary care to help facilitate f/u at [facility] to discuss further intervention as needed for her recurrent ascending cholangitis. However, pain increased for the patient prior to this being completed. Will obtain CT to evaluate for any new process in abdomen, with elevated WBC, lactate and icnreased pain, I am concerned for possible abscess formation. Consulted with Dr. Salmeron with GI, reviewed labs with him. He has heard of this patient historically and is aware of the multiple attempts to transfer to their facliity for intervention historically. He feels that patien tis appropriate for transfer at this time for drain study, possible ECRP vs. other intervention. However, beds are limited at this time. Awaiting to hear from hospitalist regarding bed availability. Consulted with Dr. Salmeron and Dr. Baker with hospitalist service, discussed history, presenting symptoms and labs thus far. Imaging has been requested to send to their facility. Results of CT still pending. They agree to transfer for continued diagnostics and treatment of her recurrent cholangitis. Thus far, she has received 1L of fluid, Meropenem. She is currently receiving 20 IV potassium and 1g IV magnesium. Blood cultures still pending. Was only able to obatin one set of blood cultures. Discussed plan for transfer with [facility] patient, she is in agreement with this plan. Prior to discharge, she is requesting nebulizer. She uses this at home. Lungs remain clear. Has home O2 ordered but has not required any O2 while here. HPI General Mode of arrival: EMS. Date/Time Provider Initiated Documentation: 10/20/18 11:23. Limitations to Documentation: no limitations. Information obtained by: patient and EMS. History of Present Illness 63 year old F presents to the emergency department with the chief complaint of RUQ abdominal pain, described as severe, Quality is described as aching, and is localized to the abdomen. Patient reports no radiation. Patient started experiencing this unknown and it has been constant. No relieving factors improve symptom(s), No exacerbating factors reported . Patient notes nausea/vomiting (endorses nausea, no vomiting) and weakness; denies chest pain, cough, fever/chills, headaches, rash and shortness of breath. Related Data Home Medications Medication Instructions Recorded Confirmed lorazepam 0.5 mg PO QID PRN 03/09/13 10/20/18 pantoprazole 40 mg PO DAILY 03/09/13 10/20/18 clonazepam 2 tab PO HS 10/03/14 10/20/18 sertraline [Zoloft] 100 mg PO DAILY tab-cap 10/03/14 10/20/18 Advair HFA 2 puff INHALATION BID 10/26/14 10/20/18 calcium carbonate-vitamin D3 2 tab PO BID 10/26/14 10/20/18 cyclobenzaprine 10 mg PO BID 10/26/14 10/20/18 ferrous sulfate 325 mg PO DAILY 10/26/14 10/20/18 anastrozole [Arimidex] 1 mg PO DAILY 12/18/16 10/20/18 glucosamine sulfate 2KCl 500 mg PO BID 12/18/16 10/20/18 ascorbic acid (vitamin C) [Vitamin 500 mg PO BID 05/30/17 10/20/18 C] cyanocobalamin (vitamin B-12) 100 mcg PO DAILY 05/30/17 10/20/18 [Vitamin B-12] ergocalciferol (vitamin D2) 50,000 units PO DIRECTED 05/30/17 10/20/18 [Vitamin D2] ipratropium-albuterol 3 ml INHALATION QID 02/12/18 10/20/18 metoprolol tartrate 25 mg PO TID 09/18/18 10/20/18 albuterol sulfate 2 inh INHALATION QID 10/20/18 10/20/18 benzonatate 100 mg PO TID PRN 10/20/18 10/20/18 dicyclomine [Bentyl] 10 mg BID 10/20/18 10/20/18 ferrous sulfate 325 mg PO DAILY 10/20/18 10/20/18 ipratropium bromide [Atrovent HFA] 1 puff INHALATION TID 10/20/18 10/20/18 loperamide 2 mg PO TID 10/20/18 10/20/18 methylphenidate HCl [Ritalin] 10 mg PO BID 10/20/18 10/20/18 oxycodone-acetaminophen [Percocet] 1 tab PO Q4H PRN 10/20/18 10/20/18 triamcinolone acetonide [Kenalog] 0.147 mg TOPICAL BID 10/20/18 10/20/18 Allergies Allergy/AdvReac Type Severity Reaction Status Date / Time haloperidol Allergy Severe seizure Unverified 09/21/18 14:58 cephalexin monohydrate Allergy Mild Unverified 09/21/18 14:58 [From Keflex] ciprofloxacin [From Cipro] Allergy Mild Hives Unverified 09/21/18 14:58 dextroamphetamine Allergy Unknown Unverified 09/21/18 14:58 doxylamine Allergy Unknown Unverified 09/21/18 14:58 eszopiclone [From Lunesta] Allergy Unknown Unverified 09/21/18 14:58 Penicillins Allergy Unknown Unverified 09/21/18 14:58 pseudoephedrine Allergy Unknown Unverified 09/21/18 14:58 Sulfa (Sulfonamide Allergy Unknown Unverified 09/21/18 14:58 Antibiotics) trazodone Allergy Unknown Unverified 09/21/18 14:58 venlafaxine HCl AdvReac Severe crazy Unverified 09/21/18 14:58 [From Effexor] dextromethorphan HBr AdvReac Intermediate muscle Unverified 09/21/18 14:58 [From NyQuil] twitch doxylamine succinate AdvReac Intermediate muscle Unverified 09/21/18 14:58 [From NyQuil] twitch omeprazole AdvReac Intermediate Diarrhea Unverified 09/21/18 14:58 pseudoephedrine HCl AdvReac Intermediate muscle Unverified 09/21/18 14:58 [From NyQuil] twitch chlorpromazine HCl AdvReac passes out Unverified 09/21/18 14:58 [From Thorazine] General Stated Complaint: Abd Prob GRISELDA: 3 Review of Systems Review of Systems Patient is poor historian, very soft spoken and does not answer all of my questions Constitutional Reports as per HPI, Denies chills, Reports fatigue, Denies fever(s) (patient unsure), Denies headache(s) and Reports poor appetite ENT Denies headache(s) Cardiovascular Reports as per HPI, Denies chest pain, Denies lightheadedness, Denies radiating jaw, neck or arm pain, Denies palpitations and Denies dyspnea Respiratory Reports as per HPI, Denies cough, Denies dyspnea, Denies stridor and Denies wheezing Gastrointestinal Reports as per HPI, Reports abdominal pain, Denies change in bowel habits, Denies change in stool character, Reports nausea and Denies vomiting Genitourinary Reports as per HPI (catheter in place, denies flank pain) Musculoskeletal Reports as per HPI and Denies back pain Integumentary/Breasts Reports as per HPI and Denies rash Neurologic Denies headache(s) Endocrine Reports fatigue and Denies palpitations Allergic/Immunologic Denies wheezing [facility] Medical History Morbid obesity with BMI of 45.0-49.9, adult (Chronic) Depression (Chronic) History of DVD (Chronic) DJD (degenerative joint disease) (Chronic) History of PSVT (paroxysmal supraventricular tachycardia) (Chronic) Chronic back pain (Chronic) Bilateral cataracts (Chronic) Paroxysmal atrial fibrillation (Chronic) Diastolic heart failure (Chronic) Atrial fibrillation (Chronic) Right heart failure with reduced right ventricular function (Chronic) STACEY (obstructive sleep apnea) (Chronic) ADD (attention deficit disorder) Angina at rest Asthma Atrial fibrillation Breast cancer Chest pain, atypical Chronic pain Chronic rhinitis Cirrhosis of liver Compression fracture of spine Decreased visual acuity Depression Diastolic heart failure GI (gastrointestinal bleed) Gastric bypass status for obesity History of paroxysmal supraventricular tachycardia Hx of deep venous thrombosis Hyperparathyroidism , secondary, non-renal Hypertension IBS (irritable bowel syndrome) Insomnia Morbid obesity STACEY (obstructive sleep apnea) Osteoarthritis Osteopenia Oxygen dependent PUD (peptic ulcer disease) Pulmonary HTN Superficial thrombophlebitis Tricuspid regurgitation Surgical History History of biliary T-tube placement (Resolved 09/01/18) Breast, Mastectomy EGD - MAC Gastric Bypass Social History caregiver/support person: No household members: none housing: apartment lives independently: Yes number of children: 2 number of grandchildren: 1 senior living: No current occupational status: disabled Smoking/Tobacco Use Status: Former Tobacco Use Exam Const General: cooperative, comfortable, no acute distress and ill appearing chronically Nutritional Appearance: well nourished, overweight and edematous Orientation: alert and awake HENMT Head: normal to inspection Mouth: mucous membranes dry (appears dry on exam) Resp Effort & Inspection: normal respiratory effort, able to speak in complete sentences and no respiratory distress Auscultation: clear to auscultation bilaterally, no rales, no rhonchi and no wheezes Cardio Rate: regular rate Rhythm: regular rhythm Heart Sounds: S1 normal and S2 normal GI Inspection: no abdominal wall ecchymosis, edema, non-distended, incision (well healed), obesity, no visible pulsation and No caput medusae present Palpation: soft, not firm, no guarding, not rigid and tender (diffuse, worse in RUQ) Gonzalez's sign negative and with no rebound tenderness Percussion: dullness to percussion Auscultation: hyperactive bowel sounds Rectal Exam - female: abnormal visual inspection (patient has erythema around buttock ) Back/Spine/Pelvis Back: no CVA tenderness Skin General skin exam: no rashes or lesions noted Trauma: no lacerations or abrasions Neuro General: alert and awake Cognition: normal cognition Speech: speech normal Gait: gait abnormal (nonambulatory) Extrem General: no calf tenderness, abnormal gait and edema Laterality: bilateral Psych Appearance: grossly normal and well kempt Mental Status: mental status grossly normal Speech and Movement: speech and movement normal Course Vital Signs Temperature 37.1 C 10/20/18 11:25 Pulse 89 10/20/18 11:25 Respiratory Rate 16 10/20/18 11:25 Blood Pressure 99/62 L 10/20/18 11:25 Pulse Oximetry 93 L 10/20/18 11:25 Temperature 37.1 C 10/20/18 11:25 Temperature Source Skin 10/20/18 11:25 Pulse 89 10/20/18 11:25 Respiratory Rate 16 10/20/18 11:25 Blood Pressure 99/62 L 10/20/18 11:25 Pulse Oximetry 93 L 10/20/18 11:25
--- NOTE | 2018-10-20 11:48 | ED.GENADUL_ITS ---
Discharge Plan Disposition Patient Disposition: [facility] Condition: Serious Discharge Details Chief Complaint: Abd Prob Clinical Impression: Hypomagnesemia, Acute hypokalemia, Cholangitis Reason For Visit: JOSE Primary Care Provider: Sera Gutiérrez ED Provider: Jeannie Julio Home Meds and New Rx's Prescriptions: No Action sertraline [Zoloft] 50 MG tablet 100 mg PO DAILY RF: 0 clonazepam 1 MG tablet,disintegrating 2 tab PO HS RF: 0 ipratropium-albuterol 3 ML solution for nebulization 3 ml Inhalation QID RF: 0 lorazepam 0.5 MG tablet 0.5 mg PO QID PRNRF: 0 pantoprazole 40 MG tablet,delayed release (DR/EC) 40 mg PO DAILY RF: 0 cyclobenzaprine 10 MG tablet 10 mg PO BID RF: 0 calcium carbonate-vitamin D3 1 EACH tablet 2 tab PO BID RF: 0 ferrous sulfate 325 MG tablet 325 mg PO DAILY RF: 0 Advair HFA 60 PUFF HFA aerosol inhaler 2 puff Inhalation BID RF: 0 anastrozole [Arimidex] 1 MG tablet 1 mg PO DAILY RF: 0 glucosamine sulfate 2KCl 1,000 MG tablet 500 mg PO BID RF: 0 Atrovent HFA 17 mcg/actuation Hfa Aerosol Inhaler 1 puff INHALATION TID RF: 0 dicyclomine [Bentyl] 10 mg/mL Solution 10 mg BID RF: 0 albuterol sulfate 2.5 mg /3 mL (0.083 %) Solution For Nebulization 2 inh Inhalation QID RF: 0 methylphenidate HCl [Ritalin] 10 mg Tablet 10 mg PO BID RF: 0 loperamide 2 mg Tablet 2 mg PO TID RF: 0 oxycodone-acetaminophen [Percocet] 5-325 mg Tablet 1 tab PO Q4H PRNRF: 0 benzonatate 100 mg Capsule 100 mg PO TID PRNRF: 0 ferrous sulfate 325 mg (65 mg iron) Tablet 325 mg PO DAILY RF: 0 triamcinolone acetonide [Kenalog] 0.147 mg/gram Aerosol 0.147 mg Topical BID RF: 0 cyanocobalamin (vitamin B-12) [Vitamin B-12] 100 MCG tablet 100 mcg PO DAILY RF: 0 ascorbic acid (vitamin C) [Vitamin C] 500 MG tablet 500 mg PO BID RF: 0 ergocalciferol (vitamin D2) [Vitamin D2] 50,000 UNITS capsule 50,000 units PO DIRECTED RF: 0 metoprolol tartrate 25 mg Tablet 25 mg PO TID RF: 0 Discharge Data Discharge Date/Time-TO BE ENTERED AT DEPARTURE: 10/20/18 15:55 Medical Decision Making Patient is a 63-year-old female presenting today with chief complaint of right upper quadrant pain. Patient has had multiple recent admissions for this right upper quadrant pain. She has known ascending cholangitis with biliary drain placement. She has been treated multiple occasions for septic shock secondary to this. He was recently admitted for hematobilia, hypotension and sepsis. Medical history includes morbid obesity, atrial fibrillation, right heart failure with reduced right ventricular function, breast cancers, CAD, COPD, STACEY, HTN, severe TR, GERD. As of recently, patient was admitted 08 30 through 1113 at [facility] at which time she was diagnosed with ascending cholangitis and UTI with resultant septic shock. After having a recurrence of her symptoms, patient was admitted again here, leaving at patient request on 10/05/2018, and treated for intermittent hematobilia with clots and elevated LFTs, sepsis thought to be secondary to her recurrence of a sending cholangitis per patient has had a large amount of workups. Review of her recent admission reveals that the patient has gone back and forth between wanting to continue care versus hospice care. She is currently DNR/DNI. Patient up to this point has refused transfer to [facility] where it was recommended she undergo IR drainage versus ERCP for more definitive care. During her recent admission, patient was treated with vancomycin, meropenem and Flagyl. Advised that locally, her only surgical option is for an open CBD exploration which has higher risk of mortality given her significant comorbidities. Patient had been recommended to transfer to facility with IR capabilities however, she refused transfer and recent admission was discharged home recently with a 14-day course of antibiotics. Patient refused follow-up after leaving hospital. Patient reports that she has had home health daily. Since recent admission, patient is unclear if she had any fevers. States that she has had nausea but no vomiting. Reports no change in bowel habits. Patient has catheter placed, this is not been changed since recent admission. She reports the drainage has been intermittent from the biliary drain. States that it has been intermittently quite bloody. On exam, patient appears chronically ill. She is jaundiced, large amount of edema is noted. Lungs are clear. Abdomen is tender, particular the right upper quadrant but no peritoneal findings at this time. Drain has scant amount of bloody discharge. Urine from the [place] appears purulent. She does have a small amount of skin breakdown on her bottom. We will obtain laboratory evaluation including blood cultures, lactate, LFTs, PT/PTT. Discussed this plan the patient is in agreement. At this point, she has had a large amount of imaging and I do not know the utility of repeating this. Plan obtain imaging and consult with [facility] regarding patient's chronic abdominal pain and history of cholangitis WBC is elevated at 13, this was not elevated on recent admission. Will begin Meropenum once the cultures have been drawn. Patient was on this during recent admission and tolerated medication well. Multiple attempts have been made to attain blood cultures, having difficulty with this. Potassium is critically low at 2.7, will begin replenishing this and obtain EKG. Lactate 2.1 Magnesium 1.6. AST 121, this has not been elevated this high previously. Alk phos 1550 which is also quite high compared to the patients baseline. Bilirubin 5.2 which is also elevated from baseline EKG significant for a fib, reviewed by Dr. Conte with no acute abnormality noted. Spoke with the patients son at her request. He advised that they discussed her continued care and wishes at the beginning of the week. He advised that plan was for primary care to help facilitate f/u at [facility] to discuss further intervention as needed for her recurrent ascending cholangitis. However, pain increased for the patient prior to this being completed. Will obtain CT to evaluate for any new process in abdomen, with elevated WBC, lactate and icnreased pain, I am concerned for possible abscess formation. Consulted with Dr. Salmeron with GI, reviewed labs with him. He has heard of this patient historically and is aware of the multiple attempts to transfer to their facliity for intervention historically. He feels that patien tis appropriate for transfer at this time for drain study, possible ECRP vs. other intervention. However, beds are limited at this time. Awaiting to hear from hospitalist regarding bed availability. Consulted with Dr. Salmeron and Dr. Baker with hospitalist service, discussed history, presenting symptoms and labs thus far. Imaging has been requested to send to their facility. Results of CT still pending. They agree to transfer for continued diagnostics and treatment of her recurrent cholangitis. Thus far, she has received 1L of fluid, Meropenem. She is currently receiving 20 IV potassium and 1g IV magnesium. Blood cultures still pending. Was only able to obatin one set of blood cultures. Discussed plan for transfer with [facility] patient, she is in agreement with this plan. Prior to discharge, she is requesting nebulizer. She uses this at home. Lungs remain clear. Has home O2 ordered but has not required any O2 while here. HPI General Mode of arrival: EMS . Date/Time Provider Initiated Documentation: 10/20/18 11:23 . Limitations to Documentation: no limitations . Information obtained by: patient and EMS . History of Present Illness 63 year old F presents to the emergency department with the chief complaint of RUQ abdominal pain, described as severe, Quality is described as aching, and is localized to the abdomen. Patient reports no radiation. Patient started experiencing this unknown and it has been constant. No relieving factors improve symptom(s), No exacerbating factors reported . Patient notes nausea/vomiting (endorses nausea, no vomiting) and weakness; denies chest pain, cough, fever/chills, headaches, rash and shortness of breath. Related Data Home Medications Medication Instructions Recorded Confirmed lorazepam 0.5 mg PO QID PRN 03/09/13 10/20/18 pantoprazole 40 mg PO DAILY 03/09/13 10/20/18 clonazepam 2 tab PO HS 10/03/14 10/20/18 sertraline [Zoloft] 100 mg PO DAILY tab-cap 10/03/14 10/20/18 Advair HFA 2 puff INHALATION BID 10/26/14 10/20/18 calcium carbonate-vitamin D3 2 tab PO BID 10/26/14 10/20/18 cyclobenzaprine 10 mg PO BID 10/26/14 10/20/18 ferrous sulfate 325 mg PO DAILY 10/26/14 10/20/18 anastrozole [Arimidex] 1 mg PO DAILY 12/18/16 10/20/18 glucosamine sulfate 2KCl 500 mg PO BID 12/18/16 10/20/18 ascorbic acid (vitamin C) [Vitamin 500 mg PO BID 05/30/17 10/20/18 C] cyanocobalamin (vitamin B-12) 100 mcg PO DAILY 05/30/17 10/20/18 [Vitamin B-12] ergocalciferol (vitamin D2) 50,000 units PO DIRECTED 05/30/17 10/20/18 [Vitamin D2] ipratropium-albuterol 3 ml INHALATION QID 02/12/18 10/20/18 metoprolol tartrate 25 mg PO TID 09/18/18 10/20/18 albuterol sulfate 2 inh INHALATION QID 10/20/18 10/20/18 benzonatate 100 mg PO TID PRN 10/20/18 10/20/18 dicyclomine [Bentyl] 10 mg BID 10/20/18 10/20/18 ferrous sulfate 325 mg PO DAILY 10/20/18 10/20/18 ipratropium bromide [Atrovent HFA] 1 puff INHALATION TID 10/20/18 10/20/18 loperamide 2 mg PO TID 10/20/18 10/20/18 methylphenidate HCl [Ritalin] 10 mg PO BID 10/20/18 10/20/18 oxycodone-acetaminophen [Percocet] 1 tab PO Q4H PRN 10/20/18 10/20/18 triamcinolone acetonide [Kenalog] 0.147 mg TOPICAL BID 10/20/18 10/20/18 Allergies Allergy/AdvReac Type Severity Reaction Status Date / Time haloperidol Allergy Severe seizure Unverified 09/21/18 14:58 cephalexin monohydrate Allergy Mild Unverified 09/21/18 14:58 [From Keflex] ciprofloxacin [From Cipro] Allergy Mild Hives Unverified 09/21/18 14:58 dextroamphetamine Allergy Unknown Unverified 09/21/18 14:58 doxylamine Allergy Unknown Unverified 09/21/18 14:58 eszopiclone [From Lunesta] Allergy Unknown Unverified 09/21/18 14:58 Penicillins Allergy Unknown Unverified 09/21/18 14:58 pseudoephedrine Allergy Unknown Unverified 09/21/18 14:58 Sulfa (Sulfonamide Allergy Unknown Unverified 09/21/18 14:58 Antibiotics) trazodone Allergy Unknown Unverified 09/21/18 14:58 venlafaxine HCl AdvReac Severe crazy Unverified 09/21/18 14:58 [From Effexor] dextromethorphan HBr AdvReac Intermediate muscle Unverified 09/21/18 14:58 [From NyQuil] twitch doxylamine succinate AdvReac Intermediate muscle Unverified 09/21/18 14:58 [From NyQuil] twitch omeprazole AdvReac Intermediate Diarrhea Unverified 09/21/18 14:58 pseudoephedrine HCl AdvReac Intermediate muscle Unverified 09/21/18 14:58 [From NyQuil] twitch chlorpromazine HCl AdvReac passes out Unverified 09/21/18 14:58 [From Thorazine] General Stated Complaint: Abd Prob GRISELDA: 3 Review of Systems Review of Systems Patient is poor historian, very soft spoken and does not answer all of my questions Constitutional Reports as per HPI, Denies chills, Reports fatigue, Denies fever(s) (patient unsure), Denies headache(s) and Reports poor appetite ENT Denies headache(s) Cardiovascular Reports as per HPI, Denies chest pain, Denies lightheadedness, Denies radiating jaw, neck or arm pain, Denies palpitations and Denies dyspnea Respiratory Reports as per HPI, Denies cough, Denies dyspnea, Denies stridor and Denies wheezing Gastrointestinal Reports as per HPI, Reports abdominal pain, Denies change in bowel habits, Denies change in stool character, Reports nausea and Denies vomiting Genitourinary Reports as per HPI (catheter in place, denies flank pain) Musculoskeletal Reports as per HPI and Denies back pain Integumentary/Breasts Reports as per HPI and Denies rash Neurologic Denies headache(s) Endocrine Reports fatigue and Denies palpitations Allergic/Immunologic Denies wheezing [facility] Medical History Morbid obesity with BMI of 45.0-49.9, adult (Chronic) Depression (Chronic) History of DVD (Chronic) DJD (degenerative joint disease) (Chronic) History of PSVT (paroxysmal supraventricular tachycardia) (Chronic) Chronic back pain (Chronic) Bilateral cataracts (Chronic) Paroxysmal atrial fibrillation (Chronic) Diastolic heart failure (Chronic) Atrial fibrillation (Chronic) Right heart failure with reduced right ventricular function (Chronic) STACEY (obstructive sleep apnea) (Chronic) ADD (attention deficit disorder) Angina at rest Asthma Atrial fibrillation Breast cancer Chest pain, atypical Chronic pain Chronic rhinitis Cirrhosis of liver Compression fracture of spine Decreased visual acuity Depression Diastolic heart failure GI (gastrointestinal bleed) Gastric bypass status for obesity History of paroxysmal supraventricular tachycardia Hx of deep venous thrombosis Hyperparathyroidism , secondary, non-renal Hypertension IBS (irritable bowel syndrome) Insomnia Morbid obesity STACEY (obstructive sleep apnea) Osteoarthritis Osteopenia Oxygen dependent PUD (peptic ulcer disease) Pulmonary HTN Superficial thrombophlebitis Tricuspid regurgitation Surgical History History of biliary T-tube placement (Resolved 09/01/18) Breast, Mastectomy EGD - MAC Gastric Bypass Social History caregiver/support person: No household members: none housing: apartment lives independently: Yes number of children: 2 number of grandchildren: 1 jail: No current occupational status: disabled Smoking/Tobacco Use Status: Former Tobacco Use Exam Const General: cooperative, comfortable, no acute distress and ill appearing chronically Nutritional Appearance: well nourished, overweight and edematous Orientation: alert and awake HENMT Head: normal to inspection Mouth: mucous membranes dry (appears dry on exam) Resp Effort & Inspection: normal respiratory effort, able to speak in complete sentences and no respiratory distress Auscultation: clear to auscultation bilaterally, no rales, no rhonchi and no wheezes Cardio Rate: regular rate Rhythm: regular rhythm Heart Sounds: S1 normal and S2 normal GI Inspection: no abdominal wall ecchymosis, edema, non-distended, incision (well healed), obesity, no visible pulsation and No caput medusae present Palpation: soft, not firm, no guarding, not rigid and tender (diffuse, worse in RUQ) Gonzalez's sign negative and with no rebound tenderness Percussion: dullness to percussion Auscultation: hyperactive bowel sounds Rectal Exam - female: abnormal visual inspection (patient has erythema around buttock ) Back/Spine/Pelvis Back: no CVA tenderness Skin General skin exam: no rashes or lesions noted Trauma: no lacerations or abrasions Neuro General: alert and awake Cognition: normal cognition Speech: speech normal Gait: gait abnormal (nonambulatory) Extrem General: no calf tenderness, abnormal gait and edema Laterality: bilateral Psych Appearance: grossly normal and well kempt Mental Status: mental status grossly normal Speech and Movement: speech and movement normal Course Vital Signs Temperature 37.1 C 10/20/18 11:25 Pulse 89 10/20/18 11:25 Respiratory Rate 16 10/20/18 11:25 Blood Pressure 99/62 L 10/20/18 11:25 Pulse Oximetry 93 L 10/20/18 11:25 Temperature 37.1 C 10/20/18 11:25 Temperature Source Skin 10/20/18 11:25 Pulse 89 10/20/18 11:25 Respiratory Rate 16 10/20/18 11:25 Blood Pressure 99/62 L 10/20/18 11:25 Pulse Oximetry 93 L 10/20/18 11:25
[2018-10-20 12:08] LABS: Abs Immature Grans 0.03 k/cumm (0.0-0.09); Absolute Basophil Count 0.04 k/cumm (0.0-0.2); Absolute Lymphocyte Count 0.81 k/cumm (1.2-3.4); Absolute Monocyte Count 0.51 k/cumm (0.11-0.7); Absolute Neutrophil Count 11.66 k/cumm (1.2-6.7); Basophils % 0.3; HCT 39.3 % (36.0-46.0); HGB 12.3 g/dL (12.0-15.5); Immature Grans % 0.2; Lymphocytes % 6.1; Mean Corp. HGB Concentration 31.3 g/dL (32.0-36.0); Mean Corpuscular Hemoglobin 32.3 pg (27.0-33.0); Mean Corpuscular Volume 103.1 fL (80-95); Mean Platelet Volume 11.2 fL (8.0-11.0); Monocytes % 3.8; Neutrophils % 87.6; Platelet Count 181 x1000/uL (130-400); RBC 3.81 m/cumm (4.00-5.20); RBC Distribution Width 14.9 % (11.7-14.6); White Blood Cell Count 13.31 k/cumm (4.4-10.8)
[2018-10-20 12:12] LABS: Absolute Eosinophil Count 0.27 k/cumm (0.0-0.7)
[2018-10-20] MEDS: Normal Saline 1,000 ML 125 ML IV (12:30)
[2018-10-20 12:59] LABS: Lactate-non-spesis 2.1 mmol/L (0.6-1.4)
[2018-10-20 13:02] LABS: ALT 70 U/L (12-78); AST 121 U/L (15-37); Albumin 2.8 g/dL (3.4-5.0); Anion Gap 9.1 mmol/L (3-11); BUN 19 mg/dL (7-18); Bilirubin, Total 5.2 mg/dL (0.2-1.0); CO2 30.9 mmol/L (21.0-32.0); CREATININE 0.66 mg/dL (0.55-1.02); Calcium 9.1 mg/dL (8.5-10.1); Chloride 100 mmol/L (98-107); Glucose 93 mg/dL (70-100); Lipase 43 U/L (73-393); Magnesium 1.6 mg/dL (1.8-2.4); Sodium 140 mmol/L (136-145)
[2018-10-20 13:07] LABS: Alkaline Phosphatase 1550 U/L (46-116)
[2018-10-20 13:08] LABS: Potassium 2.7 mmol/L (3.5-5.1); Troponin I < 0.02 ng/mL (0.00-0.06)
[2018-10-20 13:11] LABS: INR 1.7 (1.0-3.5); Prothrombin Time 16.7 sec (9.3-11.0)
--- NOTE | 2018-10-20 13:20 | NUR.NOTE ---
MD Conte is at the bedside attempting PIV access by ultrasound. Pt. placed on cardiac and resp. monitor. Pt. is talking on phone, is in no acute distress.
[2018-10-20] MEDS: MEROPENEM 1 GM in Normal Saline 100 ML IVPB (13:34)
[2018-10-20] MEDS: POTASSIUM CHLORIDE 20 MEQ/100 ML BAG 50 MEQ IVPB (13:36)
--- NOTE | 2018-10-20 13:53 | NUR.NOTE ---
L IVF opened up wide for 1L bolus per PA P[place]urn. Aware of BP 89/45, pt. is alert, adequate urine output. Pt. has baseline low BP, no new orders. Potassium, abx and L bolus administering as ordered.
--- NOTE | 2018-10-20 14:00 | W.ED.GENAD ---
Discharge Plan Disposition Patient Disposition: [facility] Condition: Serious Discharge Details Chief Complaint: Abd Prob Clinical Impression: Hypomagnesemia, Acute hypokalemia, Cholangitis Reason For Visit: JOSE Primary Care Provider: Sera Gutiérrez ED Provider: Jeannie Julio Home Meds and New Rx's Prescriptions: No Action sertraline [Zoloft] 50 MG tablet 100 mg PO DAILY RF: 0 clonazepam 1 MG tablet,disintegrating 2 tab PO HS RF: 0 ipratropium-albuterol 3 ML solution for nebulization 3 ml Inhalation QID RF: 0 lorazepam 0.5 MG tablet 0.5 mg PO QID PRNRF: 0 pantoprazole 40 MG tablet,delayed release (DR/EC) 40 mg PO DAILY RF: 0 cyclobenzaprine 10 MG tablet 10 mg PO BID RF: 0 calcium carbonate-vitamin D3 1 EACH tablet 2 tab PO BID RF: 0 ferrous sulfate 325 MG tablet 325 mg PO DAILY RF: 0 Advair HFA 60 PUFF HFA aerosol inhaler 2 puff Inhalation BID RF: 0 anastrozole [Arimidex] 1 MG tablet 1 mg PO DAILY RF: 0 glucosamine sulfate 2KCl 1,000 MG tablet 500 mg PO BID RF: 0 Atrovent HFA 17 mcg/actuation Hfa Aerosol Inhaler 1 puff INHALATION TID RF: 0 dicyclomine [Bentyl] 10 mg/mL Solution 10 mg BID RF: 0 albuterol sulfate 2.5 mg /3 mL (0.083 %) Solution For Nebulization 2 inh Inhalation QID RF: 0 methylphenidate HCl [Ritalin] 10 mg Tablet 10 mg PO BID RF: 0 loperamide 2 mg Tablet 2 mg PO TID RF: 0 oxycodone-acetaminophen [Percocet] 5-325 mg Tablet 1 tab PO Q4H PRNRF: 0 benzonatate 100 mg Capsule 100 mg PO TID PRNRF: 0 ferrous sulfate 325 mg (65 mg iron) Tablet 325 mg PO DAILY RF: 0 triamcinolone acetonide [Kenalog] 0.147 mg/gram Aerosol 0.147 mg Topical BID RF: 0 cyanocobalamin (vitamin B-12) [Vitamin B-12] 100 MCG tablet 100 mcg PO DAILY RF: 0 ascorbic acid (vitamin C) [Vitamin C] 500 MG tablet 500 mg PO BID RF: 0 ergocalciferol (vitamin D2) [Vitamin D2] 50,000 UNITS capsule 50,000 units PO DIRECTED RF: 0 metoprolol tartrate 25 mg Tablet 25 mg PO TID RF: 0 Medical Decision Making ECG Data Attestation: I personally reviewed and interpreted this ECG (s) as follows: Prior ECG tracings: not available for review Interpretation: atrial fibrillation, rate of 93, qtc 393, no acute st t wave ischemic findings HPI General Mode of arrival: EMS. Date/Time Provider Initiated Documentation: 10/20/18 11:23. Limitations to Documentation: no limitations. Information obtained by: patient and EMS. History of Present Illness Quality is described as aching, and is localized to the abdomen. No relieving factors improve symptom(s), No exacerbating factors reported . Patient notes nausea/vomiting (endorses nausea, no vomiting) and weakness; denies chest pain, cough, fever/chills, headaches, rash and shortness of breath. Related Data Home Medications Medication Instructions Recorded Confirmed lorazepam 0.5 mg PO QID PRN 03/09/13 10/20/18 pantoprazole 40 mg PO DAILY 03/09/13 10/20/18 clonazepam 2 tab PO HS 10/03/14 10/20/18 sertraline [Zoloft] 100 mg PO DAILY tab-cap 10/03/14 10/20/18 Advair HFA 2 puff INHALATION BID 10/26/14 10/20/18 calcium carbonate-vitamin D3 2 tab PO BID 10/26/14 10/20/18 cyclobenzaprine 10 mg PO BID 10/26/14 10/20/18 ferrous sulfate 325 mg PO DAILY 10/26/14 10/20/18 anastrozole [Arimidex] 1 mg PO DAILY 12/18/16 10/20/18 glucosamine sulfate 2KCl 500 mg PO BID 12/18/16 10/20/18 ascorbic acid (vitamin C) [Vitamin 500 mg PO BID 05/30/17 10/20/18 C] cyanocobalamin (vitamin B-12) 100 mcg PO DAILY 05/30/17 10/20/18 [Vitamin B-12] ergocalciferol (vitamin D2) 50,000 units PO DIRECTED 05/30/17 10/20/18 [Vitamin D2] ipratropium-albuterol 3 ml INHALATION QID 02/12/18 10/20/18 metoprolol tartrate 25 mg PO TID 09/18/18 10/20/18 albuterol sulfate 2 inh INHALATION QID 10/20/18 10/20/18 benzonatate 100 mg PO TID PRN 10/20/18 10/20/18 dicyclomine [Bentyl] 10 mg BID 10/20/18 10/20/18 ferrous sulfate 325 mg PO DAILY 10/20/18 10/20/18 ipratropium bromide [Atrovent HFA] 1 puff INHALATION TID 10/20/18 10/20/18 loperamide 2 mg PO TID 10/20/18 10/20/18 methylphenidate HCl [Ritalin] 10 mg PO BID 10/20/18 10/20/18 oxycodone-acetaminophen [Percocet] 1 tab PO Q4H PRN 10/20/18 10/20/18 triamcinolone acetonide [Kenalog] 0.147 mg TOPICAL BID 10/20/18 10/20/18 Allergies Allergy/AdvReac Type Severity Reaction Status Date / Time haloperidol Allergy Severe seizure Unverified 09/21/18 14:58 cephalexin monohydrate Allergy Mild Unverified 09/21/18 14:58 [From Keflex] ciprofloxacin [From Cipro] Allergy Mild Hives Unverified 09/21/18 14:58 dextroamphetamine Allergy Unknown Unverified 09/21/18 14:58 doxylamine Allergy Unknown Unverified 09/21/18 14:58 eszopiclone [From Lunesta] Allergy Unknown Unverified 09/21/18 14:58 Penicillins Allergy Unknown Unverified 09/21/18 14:58 pseudoephedrine Allergy Unknown Unverified 09/21/18 14:58 Sulfa (Sulfonamide Allergy Unknown Unverified 09/21/18 14:58 Antibiotics) trazodone Allergy Unknown Unverified 09/21/18 14:58 venlafaxine HCl AdvReac Severe crazy Unverified 09/21/18 14:58 [From Effexor] dextromethorphan HBr AdvReac Intermediate muscle Unverified 09/21/18 14:58 [From NyQuil] twitch doxylamine succinate AdvReac Intermediate muscle Unverified 09/21/18 14:58 [From NyQuil] twitch omeprazole AdvReac Intermediate Diarrhea Unverified 09/21/18 14:58 pseudoephedrine HCl AdvReac Intermediate muscle Unverified 09/21/18 14:58 [From NyQuil] twitch chlorpromazine HCl AdvReac passes out Unverified 09/21/18 14:58 [From Thorazine] General Stated Complaint: Abd Prob GRISELDA: 3 PFS Medical History Morbid obesity with BMI of 45.0-49.9, adult (Chronic) Depression (Chronic) History of DVD (Chronic) DJD (degenerative joint disease) (Chronic) History of PSVT (paroxysmal supraventricular tachycardia) (Chronic) Chronic back pain (Chronic) Bilateral cataracts (Chronic) Paroxysmal atrial fibrillation (Chronic) Diastolic heart failure (Chronic) Atrial fibrillation (Chronic) Right heart failure with reduced right ventricular function (Chronic) STACEY (obstructive sleep apnea) (Chronic) ADD (attention deficit disorder) Angina at rest Asthma Atrial fibrillation Breast cancer Chest pain, atypical Chronic pain Chronic rhinitis Cirrhosis of liver Compression fracture of spine Decreased visual acuity Depression Diastolic heart failure GI (gastrointestinal bleed) Gastric bypass status for obesity History of paroxysmal supraventricular tachycardia Hx of deep venous thrombosis Hyperparathyroidism , secondary, non-renal Hypertension IBS (irritable bowel syndrome) Insomnia Morbid obesity STACEY (obstructive sleep apnea) Osteoarthritis Osteopenia Oxygen dependent PUD (peptic ulcer disease) Pulmonary HTN Superficial thrombophlebitis Tricuspid regurgitation Surgical History History of biliary T-tube placement (Resolved 09/01/18) Breast, Mastectomy EGD - MAC Gastric Bypass Social History caregiver/support person: No household members: none housing: apartment lives independently: Yes number of children: 2 number of grandchildren: 1 penitentiary: No current occupational status: disabled Smoking/Tobacco Use Status: Former Tobacco Use Course Vital Signs Temperature 37.1 C 10/20/18 11:25 Pulse 89 10/20/18 11:25 Respiratory Rate 16 10/20/18 11:25 Blood Pressure 99/62 L 10/20/18 11:25 Pulse Oximetry 93 L 10/20/18 11:25 Temperature 37.1 C 10/20/18 11:25 Temperature Source Skin 10/20/18 11:25 Pulse 89 10/20/18 11:25 Respiratory Rate 16 10/20/18 11:25 Respiratory Effort 10/20/18 12:20 Blood Pressure 99/62 L 10/20/18 11:25 Pulse Oximetry 93 L 10/20/18 11:25 Lab/Test Results Lab/Test Results: 10/20/18 13:30 Blood Blood Culture - Pending 10/20/18 11:55 Blood Blood Culture - Pending Laboratory Tests Range/Units 10/20/18 10/20/18 10/20/18 12:00 12:00 12:20 WBC (4.4-10.8) k/cumm 13.31 H RBC (4.00-5.20) m/cumm 3.81 L Hgb (12.0-15.5) g/dL 12.3 Hct (36.0-46.0) % 39.3 MCV (80-95) fL 103.1 H MCH (27.0-33.0) pg 32.3 MCHC (32.0-36.0) g/dL 31.3 L RDW (11.7-14.6) % 14.9 H Plt Count (130-400) x1000/uL 181 MPV (8.0-11.0) fL 11.2 H Immature Gran % 0.2 Neutrophils % 87.6 Lymphocytes % 6.1 Monocytes % 3.8 Eosinophils % 2.0 Basophils % 0.3 Absolute Neutrophils (1.2-6.7) k/cumm 11.66 H Absolute Lymphocytes (1.2-3.4) k/cumm 0.81 L Absolute Monocytes (0.11-0.7) k/cumm 0.51 Absolute Eosinophils (0.0-0.7) k/cumm 0.27 Absolute Basophils (0.0-0.2) k/cumm 0.04 PT (9.3-11.0) sec INR (1.0-3.5) Sodium (136-145) mmol/L 140 Potassium (3.5-5.1) mmol/L 2.7 L* Chloride (98-107) mmol/L 100 Carbon Dioxide (21.0-32.0) mmol/L 30.9 Anion Gap (3-11) mmol/L 9.1 BUN (7-18) mg/dL 19 H Creatinine (0.55-1.02) mg/dL 0.66 Estimated GFR/1.73 m2 (mL/min/1.73m2) >= 60.00 Glucose (70-100) mg/dL 93 Lactate (0.6-1.4) mmol/L 2.1 H Calcium (8.5-10.1) mg/dL 9.1 Magnesium (1.8-2.4) mg/dL 1.6 L Total Bilirubin (0.2-1.0) mg/dL 5.2 H AST (15-37) U/L 121 H ALT (12-78) U/L 70 Alkaline Phosphatase (46-116) U/L 1550 H Troponin I (0.00-0.06) ng/mL < 0.02 Total Protein (6.4-8.2) g/dL 7.0 Albumin (3.4-5.0) g/dL 2.8 L Lipase (73-393) U/L 43 L Range/Units 10/20/18 12:40 WBC (4.4-10.8) k/cumm RBC (4.00-5.20) m/cumm Hgb (12.0-15.5) g/dL Hct (36.0-46.0) % MCV (80-95) fL MCH (27.0-33.0) pg MCHC (32.0-36.0) g/dL RDW (11.7-14.6) % Plt Count (130-400) x1000/uL MPV (8.0-11.0) fL Immature Gran % Neutrophils % Lymphocytes % Monocytes % Eosinophils % Basophils % Absolute Neutrophils (1.2-6.7) k/cumm Absolute Lymphocytes (1.2-3.4) k/cumm Absolute Monocytes (0.11-0.7) k/cumm Absolute Eosinophils (0.0-0.7) k/cumm Absolute Basophils (0.0-0.2) k/cumm PT (9.3-11.0) sec 16.7 H INR (1.0-3.5) 1.7 Sodium (136-145) mmol/L Potassium (3.5-5.1) mmol/L Chloride (98-107) mmol/L Carbon Dioxide (21.0-32.0) mmol/L Anion Gap (3-11) mmol/L BUN (7-18) mg/dL Creatinine (0.55-1.02) mg/dL Estimated GFR/1.73 m2 (mL/min/1.73m2) Glucose (70-100) mg/dL Lactate (0.6-1.4) mmol/L Calcium (8.5-10.1) mg/dL Magnesium (1.8-2.4) mg/dL Total Bilirubin (0.2-1.0) mg/dL AST (15-37) U/L ALT (12-78) U/L Alkaline Phosphatase (46-116) U/L Troponin I (0.00-0.06) ng/mL Total Protein (6.4-8.2) g/dL Albumin (3.4-5.0) g/dL Lipase (73-393) U/L
--- NOTE | 2018-10-20 14:07 | DI.CT_ITS ---
SYMPTOMS/DIAGNOSIS: RIGHT UPPER QUADRANT PAIN, ELEVATED WBC, BILIARY DRAIN, ? ABSCESS ABDOMINAL AND PELVIC CT: CT examination of the abdomen and pelvis was performed with a bolus infusion of 100 cc of Omnipaque 350. Images obtained through the lower lung martinez show no specific abnormality. Note is made of a previous gastric bypass surgery. There is an indwelling biliary catheter. The gallbladder has been surgically removed. No gross biliary dilatation seen. Abdominal aorta is of normal diameter and no major vascular abnormality is seen. No significant abdominal or pelvic adenopathy identified. Liver and spleen grossly unremarkable. The pancreas shows fatty replacement and is otherwise intact. Adrenals appear normal bilaterally. There are nonobstructing right renal calculi. No hydronephrosis or ureterolithiasis seen. Gao catheter in place in the urinary bladder. No evidence of appendicitis or diverticulitis. There is a moderate quantity of fecal material throughout the colon and there is a large quantity of fecal material in the rectum, please correlate clinically regarding the possibility of fecal impaction. Nonspecific fluid collection in subcutaneous fat again noted in left mid abdomen, no change from 09/17/18. CONCLUSION: 1. Question fecal impaction. Please correlate clinically. 2. Nonobstructing right renal calculi. 3. Indwelling biliary catheter, no gross evidence of obstruction.
[2018-10-20] MEDS: Omnipaque 350 MG/ML 100 ML BTL IJ (14:51)
--- NOTE | 2018-10-20 15:00 | NUR.NOTE ---
Pt. returned from CT scan, remains alert, oriented. blood pressure checked on left leg d/t iv access and lymphedema alert. VSS, updated, call keith in reach. Pt. has phone now, [place] [facility] [place]
--- NOTE | 2018-10-20 15:23 | NUR.NOTE ---
[place] [facility] [place]
[2018-10-20] MEDS: MAGNESIUM SULFATE 1 GM/100 ML BAG IVPB (15:27)
[2018-10-20] MEDS: Albuterol/Ipratropium 3 ML UPD VIAL UPD (15:39)
--- NOTE | 2018-10-20 15:45 | NUR.NOTE ---
Bedside report given to [employer] [employer] who will be transporting patient.
--- NOTE | 2018-10-20 16:03 | DI.VRAD_ITS ---
EXAM: CT Abdomen and Pelvis With Contrast EXAM DATE/TIME: 10/20/2018 2:50 PM CLINICAL HISTORY: 63 years old, female; Signs and symptoms; Abdominal tenderness; Patient HX: Ruq pain, elevated wbc TECHNIQUE: Axial computed tomography images of the abdomen and pelvis with intravenous contrast. All CT scans at this facility use at least one of these dose optimization techniques: automated exposure control; mA and/or kV adjustment per patient size (includes targeted exams where dose is matched to clinical indication); or iterative reconstruction. Coronal and sagittal reformatted images were created and reviewed. CONTRAST: 100 ml of omni 350 administered intravenously. COMPARISON: CT ABDOMEN PELVIS W 08/30/2018 9:16 AM FINDINGS: Tubes, catheters and devices: Externalized indwelling biliary drainage catheter is in place. There is mild intrahepatic biliary ductal dilatation. Lower thorax: There are small bilateral pleural effusions with mild bibasilar atelectasis. ABDOMEN: Liver: Normal. No mass. Gallbladder and bile ducts: Gallbladder absent. Pancreas: There is mild pancreatic atrophy. Spleen: Normal. No splenomegaly. Adrenals: Normal. No mass. Kidneys and ureters: Nonobstructing right renal calculus again seen. Stomach and bowel: Status post gastric bypass surgery. There is fluid in the duodenum with diameter upper limits of normal. Moderate fecal retention pattern. Moderate fecal retention pattern present. The rectum is distended with fecal material, 7.8 cm in diameter. Appendix: No evidence of appendicitis. PELVIS: Bladder: Gao catheter drains the bladder. Reproductive: Unremarkable as visualized. ABDOMEN and PELVIS: Intraperitoneal space: See Stomach And Bowel Finding. Bones/joints: No acute fracture. No dislocation. Soft tissues: Unremarkable. Vasculature: There is mild atherosclerotic change again noted in the vasculature. Lymph nodes: Normal. No enlarged lymph nodes. IMPRESSION: 1. Biliary drainage catheter. Mild intrahepatic biliary ectasia. 2. Fecal impaction. COMMENT: Preliminary interpretation is based on receipt of 418 image(s). A final report will be issued subsequently. Dictated and Authenticated by: Theresa Kim MD. Ordering:JV Dennis MD
== END 2018-10-20 15:55 | disposition short-term general hospital (02) ==
PROVIDERS: Emergency Provider Physician Assistant; PCP Family Medicine
DX: E83.42 Hypomagnesemia (principal); E87.6 Hypokalemia; K83.09 Other cholangitis; I11.0 Hypertensive heart disease with heart failure; I50.810 Right heart failure, unspecified; J44.9 Chronic obstructive pulmonary disease, unspecified; Z87.891 Personal history of nicotine dependence
CPT/HCPCS: 80053; 83690; 87040; 93005; 94640; 96361; 96365; 96367; 96368; 99285; 74177; 83605; 83735; 84484; 85025; 85610; 93010; J3475; J3480; J3490; J7620

== ENCOUNTER 2019-04-12 21:17 | Outpatient (REF) | payer MEDICAID, SELFPAY ==
[2019-04-12 11:16] LABS: Bilirubin Negative (Negative); Blood Small (Negative); Clarity Clear; Glucose Negative (Negative); Ketones Negative (Negative); Leukocyte Esterase Large (Negative); Nitrite Positive (Negative); Specific Gravity 1.015 (1.005-1.025); Urobilinogen 0.2 EU/dL (Up TO 0.2)
[2019-04-12 11:28] LABS: WBC >50 HPF (0-5)
[2019-04-12 11:29] LABS: C & S Indicated? C&S Done As Ordered
== END 2019-04-12 21:37 ==
LOC: NCHCN 21:17
PROVIDERS: PCP Family Medicine; Visit Provider Family Medicine
DX: N39.0 Urinary tract infection, site not specified (principal)
CPT/HCPCS: 87077; 81003; 81015; 87086; 87186

== ENCOUNTER 2019-05-04 20:46 | Emergency (ER) | payer MEDICAID, SELFPAY ==
--- NOTE | 2019-05-04 20:44 | NUR.NOTE ---
Nursing Note: pt states that for the past few days she has had nausea and not wanted to eat pt has not vomited today however did vomit last week. home health called EMS as a result of hearing this from PT. PT also states that her biliary drain hurts 01/03
[2019-05-04 20:47] VITALS: BP 90/61; PULSE 77; RESP 16; TEMP 36.5; O2SAT 97
--- NOTE | 2019-05-04 21:05 | W.ED.GENAD ---
Discharge Plan Disposition Patient Disposition: HOME Condition: Stable Discharge Details Chief Complaint: Nausea/Vomit/Diar Clinical Impression: Ileus, UTI (urinary tract infection) Primary Care Provider: Sera Gutiérrez ED Provider: Jeannie Julio Home Meds and New Rx's Prescriptions: Continued sertraline [Zoloft] 50 MG tablet 100 mg PO DAILY RF: 0 clonazepam 1 MG tablet,disintegrating 2 tab PO HS RF: 0 ipratropium-albuterol 3 ML solution for nebulization 3 ml Inhalation QID RF: 0 lorazepam 0.5 MG tablet 0.5 mg PO QID PRNRF: 0 pantoprazole 40 MG tablet,delayed release (DR/EC) 40 mg PO DAILY RF: 0 cyclobenzaprine 10 MG tablet 10 mg PO BID RF: 0 calcium carbonate-vitamin D3 1 EACH tablet 2 tab PO BID RF: 0 ferrous sulfate 325 MG tablet 325 mg PO DAILY RF: 0 Advair HFA 60 PUFF HFA aerosol inhaler 2 puff Inhalation BID RF: 0 anastrozole [Arimidex] 1 MG tablet 1 mg PO DAILY RF: 0 glucosamine sulfate 2KCl 1,000 MG tablet 500 mg PO BID RF: 0 Atrovent HFA 17 mcg/actuation Hfa Aerosol Inhaler 1 puff INHALATION TID RF: 0 dicyclomine [Bentyl] 10 mg/mL Solution 10 mg BID RF: 0 albuterol sulfate 2.5 mg /3 mL (0.083 %) Solution For Nebulization 2 inh Inhalation QID RF: 0 methylphenidate HCl [Ritalin] 10 mg Tablet 10 mg PO BID RF: 0 loperamide 2 mg Tablet 2 mg PO TID RF: 0 oxycodone-acetaminophen [Percocet] 5-325 mg Tablet 1 tab PO Q4H PRNRF: 0 benzonatate 100 mg Capsule 100 mg PO TID PRNRF: 0 ferrous sulfate 325 mg (65 mg iron) Tablet 325 mg PO DAILY RF: 0 triamcinolone acetonide [Kenalog] 0.147 mg/gram Aerosol 0.147 mg Topical BID RF: 0 cyanocobalamin (vitamin B-12) [Vitamin B-12] 100 MCG tablet 100 mcg PO DAILY RF: 0 ascorbic acid (vitamin C) [Vitamin C] 500 MG tablet 500 mg PO BID RF: 0 ergocalciferol (vitamin D2) [Vitamin D2] 50,000 UNITS capsule 50,000 units PO DIRECTED RF: 0 metoprolol tartrate 25 mg Tablet 25 mg PO TID RF: 0 Discharge Instructions Instructions: Urinary Tract Infection in Women (ED), Ileus (ED) Additional Instructions: Continue to encourage hydration. Please begin the antibiotics as prescribed previously by her primary care physician. Please follow-up with them within the next 48 hours, call tomorrow to schedule appointment. If you develop increased pain, fever/chills, inability to have a bowel movement, inability stay hydrated or the new/worsening symptoms please seek care urgently once again. Referrals: Sera Gutiérrez MD [Primary Care Provider] - Medical Decision Making Patient is 63-year-old female presents today with chief complaint of diarrhea. Patient reports that she has chronic abdominal discomfort. States that one week ago she had some nausea vomiting which is since resolved. Today, she had 4 episodes of soft bowel movements. Denies any recent travel. Was recently treated with antibiotics for urinary tract infection but is unclear as to what type of antibiotic she was given. Denies any fevers or chills. States that the abdomen has been slightly distended. It is distended on exam. Patient is morbidly obese. Patient also has a biliary drain placed which he reports scant amount of discharge from it. This is been chronic and unchanged. Patient was listed to be stable on information in the electronic medical record but at this point is requesting to be a full code with full measures taken. I am concerned for possible C. difficile although the amount of diarrhea is not consistent with this. No recent antibiotic usage, she is at risk for this. Patient also feels that she may be dehydrated. We will give her a bolus here. Plan obtain labs. She denies feeling symptomatic at this time. Feel that she is at baseline. Patient is slightly hypertensive at 90/ 61 but this is typical for the patient. Patient has a distended abdomen but no peritoneal findings are noted on exam. Plan for laboratory evaluation and CT scan. Discussed this plan patient is in agreement. Labs without leukocytosis, creatinine is within normal limits, BUN is within normal limits, alk phos is elevated but this is typical for the patient. UA concerning for moderate leukocyte esterase. Discussed this with the patient. She is now explaining that while she was prescribed the antibiotic she never took these for the urinary tract infection. She reports that she has the full bottle at home. She will begin taking this tomorrow. CT reviewed by radiology: FINDINGS: Pleural space: Chronic left pleural effusion unchanged. Heart: Cardiomegaly. Liver: Pneumobilia in the left lobe of liver. Gallbladder and bile ducts: Biliary drainage tube enters through a defect in right upper quadrant wall passing into biliary tract with tip in duodenum, unchanged. Prior cholecystectomy. Pancreas: Pancreatic atrophy. Spleen: Normal. No splenomegaly. Adrenals: Normal. No mass. Kidneys and ureters: Interval increase in size of radiopaque calculus, right kidney, now measuring up to 1.4 cm. No hydronephrosis. Stomach and bowel: Prior gastric bypass. Appendix: No evidence of appendicitis. Intraperitoneal space: Normal. No free air. No significant fluid collection. Vasculature: Normal. No abdominal aortic aneurysm. Lymph nodes: Normal. No enlarged lymph nodes. Bladder: Unremarkable as visualized. Reproductive: Unremarkable as visualized. Bones/joints: Bones are demineralized. Multilevel Schmorl's nodes and hypertrophic endplate changes in visualized spine. Soft tissues: Left breast implant or alternatively chronic fluid collection, unchanged. Thinning of ventral abdominal and pelvic wall with ventral protrusion of gas-filled dilated colon in upper abdomen. There is gas-filled minimal distention of much of the colon. There is superimposed hernia containing fat and nondilated small bowel to the right of midline in the pelvis associated with multiple surgical clips, appearance unchanged. No small bowel dilatation demonstrated. IMPRESSION: Colonic ileus. Pneumobilia. Nonobstructing right renal calculus has increased in size. Discussed case with Dr. Clark. Patient has been taking oral fluids while here. Is having bowel movements. Patient does report that she typically fluctuates between constipation and diarrhea. No melena or hematochezia. Patient discussed the diagnosis of the ileus. Encourage hydration. She is given strict return precautions. I advised close follow-up with her primary care, she will call tomorrow to schedule follow-up this week. She was p.o. challenged here and did well with this. All other questions and concerns were addressed she is in agreement this plan. She will begin taking antibiotics as prescribed by her primary care physician. Patient was aware of the nephrolithiasis noted on the CT. Patient transferred home via EMS as she is unable to ambulate or tolerate seated position chrnoically. HPI General Mode of arrival: EMS. Date/Time Provider Initiated Documentation: 05/04/19 21:03. Limitations to Documentation: no limitations. Information obtained by: patient (patient is a poor historian), EMS and RN notes reviewed. History of Present Illness 63 year old F presents to the emergency department with the chief complaint of abdominal discomfort, diarrhea, described as mild, with intensity rated at 3. Quality is described as aching, and is localized to the abdomen. Patient reports no radiation. Patient started experiencing this week(s) and it has been constant. No relieving factors improve symptom(s), No exacerbating factors reported . Patient notes nausea/vomiting (vomiting last week, none since, no nausea); denies chest pain, cough, diaphoresis, fever/chills, headaches, loss of appetite, malaise, rash and shortness of breath. Patient did receive the following treatments prior to arrival, none Related Data Home Medications Medication Instructions Recorded Confirmed lorazepam 0.5 mg PO QID PRN 03/09/13 05/04/19 pantoprazole 40 mg PO DAILY 03/09/13 05/04/19 clonazepam 2 tab PO HS 10/03/14 05/04/19 sertraline [Zoloft] 100 mg PO DAILY tab-cap 10/03/14 05/04/19 Advair HFA 2 puff INHALATION BID 10/26/14 05/04/19 calcium carbonate-vitamin D3 2 tab PO BID 10/26/14 05/04/19 cyclobenzaprine 10 mg PO BID 10/26/14 05/04/19 ferrous sulfate 325 mg PO DAILY 10/26/14 05/04/19 anastrozole [Arimidex] 1 mg PO DAILY 12/18/16 05/04/19 glucosamine sulfate 2KCl 500 mg PO BID 12/18/16 05/04/19 ascorbic acid (vitamin C) [Vitamin 500 mg PO BID 05/30/17 05/04/19 C] cyanocobalamin (vitamin B-12) 100 mcg PO DAILY 05/30/17 05/04/19 [Vitamin B-12] ergocalciferol (vitamin D2) 50,000 units PO DIRECTED 05/30/17 05/04/19 [Vitamin D2] ipratropium-albuterol 3 ml INHALATION QID 02/12/18 05/04/19 metoprolol tartrate 25 mg PO TID 09/18/18 05/04/19 Atrovent HFA 1 puff INHALATION TID 10/20/18 05/04/19 albuterol sulfate 2 inh INHALATION QID 10/20/18 05/04/19 benzonatate 100 mg PO TID PRN 10/20/18 05/04/19 dicyclomine [Bentyl] 10 mg BID 10/20/18 05/04/19 ferrous sulfate 325 mg PO DAILY 10/20/18 05/04/19 loperamide 2 mg PO TID 10/20/18 05/04/19 methylphenidate HCl [Ritalin] 10 mg PO BID 10/20/18 05/04/19 oxycodone-acetaminophen [Percocet] 1 tab PO Q4H PRN 10/20/18 05/04/19 triamcinolone acetonide [Kenalog] 0.147 mg TOPICAL BID 10/20/18 05/04/19 Allergies Allergy/AdvReac Type Severity Reaction Status Date / Time haloperidol Allergy Severe seizure Unverified 05/04/19 20:49 cephalexin monohydrate Allergy Mild Unverified 05/04/19 20:49 [From Keflex] ciprofloxacin [From Cipro] Allergy Mild Hives Unverified 05/04/19 20:49 dextroamphetamine Allergy Unknown Unverified 05/04/19 20:49 doxylamine Allergy Unknown Unverified 05/04/19 20:49 eszopiclone [From Lunesta] Allergy Unknown Unverified 05/04/19 20:49 Penicillins Allergy Unknown Unverified 05/04/19 20:49 pseudoephedrine Allergy Unknown Unverified 05/04/19 20:49 Sulfa (Sulfonamide Allergy Unknown Unverified 05/04/19 20:49 Antibiotics) trazodone Allergy Unknown Unverified 05/04/19 20:49 venlafaxine HCl AdvReac Severe crazy Unverified 05/04/19 20:49 [From Effexor] dextromethorphan HBr AdvReac Intermediate muscle Unverified 05/04/19 20:49 [From NyQuil] twitch doxylamine succinate AdvReac Intermediate muscle Unverified 05/04/19 20:49 [From NyQuil] twitch omeprazole AdvReac Intermediate Diarrhea Unverified 05/04/19 20:49 pseudoephedrine HCl AdvReac Intermediate muscle Unverified 05/04/19 20:49 [From NyQuil] twitch chlorpromazine HCl AdvReac passes out Unverified 05/04/19 20:49 [From Thorazine] General Stated Complaint: Nausea/Vomit/Diar GRISELDA: 3 Review of Systems Constitutional Reports as per HPI, Denies chills, Denies fatigue, Denies fever(s) and Denies headache(s) ENT Denies headache(s) Cardiovascular Reports as per HPI, Denies chest pain and Denies dyspnea Respiratory Reports as per HPI, Denies cough and Denies dyspnea Gastrointestinal Reports as per HPI, Reports abdominal pain (diffuse abdominal discomfort), Denies melena, Reports bloating, Denies coffee ground emesis, Denies cramping, Reports diarrhea (4 episodes of diarrhea today), Denies nausea and Reports vomiting (reports vomiting last week, none since) Genitourinary Reports system reviewed and no additional complaints, except as docu (patient denies change in urinary habits. ) and Reports other (recently treated for UTI, feels this has resolved) Musculoskeletal Reports as per HPI and Denies back pain Integumentary/Breasts Reports as per HPI and Denies rash Neurologic Reports as per HPI and Denies headache(s) Endocrine Denies fatigue [facility] Social History Smoking/Tobacco Use Status: Former Tobacco Use Alcohol Intake: never Drug use: Never Substance use type: does not use Caregiver/Support person: No Household members: none Housing: apartment Number of Children: 2 number of grandchildren: 1 Do you feel safe at home: Yes Do you feel safe in your relationship?: Yes Exam Const General: cooperative, comfortable, no acute distress, well developed and ill appearing chronically Nutritional Appearance: well nourished and obese Orientation: alert and awake HENMT Head: normal to inspection Mouth: moist mucous membranes Resp Effort & Inspection: normal respiratory effort, able to speak in complete sentences and no respiratory distress Auscultation: clear to auscultation bilaterally, no rales, no rhonchi and no wheezes Cardio Rate: regular rate Rhythm: regular rhythm Heart Sounds: S1 normal and S2 normal GI Inspection: distended, large pannus, obesity, visible herniation (large central hernia, no evidence of incarceration) and No visible peristalsis Palpation: soft, no hepatosplenomegaly, no aortic enlargement, no guarding, hernia, no masses, not rigid and nontender Percussion: tympanic to percussion Auscultation: hypoactive bowel sounds Back/Spine/Pelvis Back: no CVA tenderness Skin General skin exam: no rashes or lesions noted Trauma: no lacerations or abrasions Neuro General: alert and awake Cognition: normal cognition Speech: speech normal Psych Appearance: grossly normal and well kempt Mental Status: mental status grossly normal Speech and Movement: speech and movement normal Course Vital Signs Temperature 36.5 C 05/04/19 20:47 Pulse 77 05/04/19 20:47 Respiratory Rate 16 05/04/19 20:47 Blood Pressure 90/61 L 05/04/19 20:47 Pulse Oximetry 97 05/04/19 20:47 Temperature 36.5 C 05/04/19 20:47 Temperature Source Skin 05/04/19 20:47 Pulse 77 05/04/19 20:47 Respiratory Rate 16 05/04/19 20:47 Respiratory Effort 05/04/19 20:50 Blood Pressure 90/61 L 05/04/19 20:47 Blood Pressure Position Sitting 05/04/19 20:47 Pulse Oximetry 97 05/04/19 20:47 Oxygen Delivery Method Room Air 05/04/19 20:47 Oxygen Flow Rate 0 05/04/19 20:47
[2019-05-04 21:32] LABS: Abs Immature Grans 0.01 k/cumm (0.0-0.09); Absolute Basophil Count 0.03 k/cumm (0.0-0.2); Absolute Eosinophil Count 0.32 k/cumm (0.0-0.7); Absolute Lymphocyte Count 0.93 k/cumm (1.2-3.4); Absolute Monocyte Count 0.39 k/cumm (0.11-0.7); Absolute Neutrophil Count 6.22 k/cumm (1.2-6.7); Basophils % 0.4; Eosinophils % 4.1; HCT 41.7 % (36.0-46.0); HGB 13.2 g/dL (12.0-15.5); Immature Grans % 0.1; Lymphocytes % 11.8; Mean Corp. HGB Concentration 31.7 g/dL (32.0-36.0); Mean Corpuscular Hemoglobin 32.9 pg (27.0-33.0); Mean Platelet Volume 9.9 fL (8.0-11.0); Monocytes % 4.9; Neutrophils % 78.7; Platelet Count 163 x1000/uL (130-400); RBC 4.01 m/cumm (4.00-5.20); RBC Distribution Width 13.4 % (11.7-14.6)
[2019-05-04 21:51] LABS: ALT 11 U/L (12-78); AST 13 U/L (15-37); Albumin 2.6 g/dL (3.4-5.0); Alkaline Phosphatase 125 U/L (46-116); Anion Gap 5.5 mmol/L (3-11); BUN 11 mg/dL (7-18); Bilirubin, Total 0.4 mg/dL (0.2-1.0); CO2 31.5 mmol/L (21.0-32.0); CREATININE 0.73 mg/dL (0.55-1.02); Calcium 8.7 mg/dL (8.5-10.1); Chloride 102 mmol/L (98-107); Glucose 85 mg/dL (70-100); Magnesium 1.8 mg/dL (1.8-2.4); Potassium 3.5 mmol/L (3.5-5.1); Sodium 139 mmol/L (136-145); Total Protein 6.6 g/dL (6.4-8.2)
[2019-05-04 21:57] LABS: Troponin I < 0.05 ng/mL (0.00-0.06)
[2019-05-04 22:36] LABS: Bilirubin Negative (Negative); Blood Trace-intact (Negative); Clarity Cloudy (Clear); Glucose Negative (Negative); Ketones Negative (Negative); Leukocyte Esterase Moderate (Negative); Nitrite Negative (Negative); Urobilinogen 0.2 EU/dL (Up TO 0.2)
[2019-05-04 22:50] LABS: Bacteria Few HPF (Negative); Epithelial Cells Many HPF (Negative); WBC >50 HPF (0-5)
[2019-05-04 22:51] LABS: C & S Indicated? Yes; Casts Negative LPF (Negative); Crystals Negative HPF (Negative); Mucus Negative (Negative)
[2019-05-04] MEDS: Omnipaque 350 MG/ML 100 ML BTL IJ (23:00)
[2019-05-04] MEDS: Omnipaque 350 MG/ML 50 ML BTL IJ (23:02)
--- NOTE | 2019-05-04 23:15 | DI.CT_ITS ---
SYMPTOM/DIAGNOSIS: DIFFUSE ABD DISCOMFORT, H/O BREAST CA ABDOMEN AND PELVIC CT: CT examination of the abdomen and pelvis was performed with a bolus infusion of 100 cc's of Omnipaque 350. Endplate compression fractures noted at multiple levels, particularly L 2 and L 4. Images obtained through the lung bases show cardiomegaly and a small left pleural effusion. There is transhepatic biliary drainage tube, the tip of which lies in the duodenum. No biliary dilatation. Pneumobilia noted. Liver grossly unremarkable. Spleen unremarkable. Pancreatic fatty replacement noted. Non obstructing large right renal calculus noted. No left renal abnormality is seen. Adrenals appear normal. Abdominal aorta is of normal diameter and no major vascular abnormality is seen. Appendix is not specifically visualized but there is no evidence of appendicitis or diverticulitis. Moderate gas filled colonic distension noted, nonspecific. The abdominal wall is patulous with ventral protrusion, small true ventral hernia also present inferiorly containing non obstructed small bowel. No gross interval change in appearance in comparison with previous examination of 10/20/18. CONCLUSION: No evidence of acute intra-abdominal process.
[2019-05-04 23:19] VITALS: BP 82/51; PULSE 77; RESP 16; O2SAT 100
[2019-05-04] MEDS: Normal Saline 500 ML IV (23:35)
--- NOTE | 2019-05-05 00:10 | DI.VRAD_ITS ---
EXAM: CT Abdomen and Pelvis With Contrast EXAM DATE/TIME: 05/04/2019 10:36 PM CLINICAL HISTORY: 63 years old, female; Abdominal pain; Other: Diffuse pain and discomfort; Prior surgery; Surgery date: 6+ months; Surgery type: Gastric bypass, mastectomy. Biliary tube placement; Patient HX: Diffuse abd pain, discomfort TECHNIQUE: Imaging protocol: Axial computed tomography images of the abdomen and pelvis with intravenous contrast. Coronal and sagittal reformatted images were created and reviewed. Radiation optimization: All CT scans at this facility use at least one of these dose optimization techniques: automated exposure control; mA and/or kV adjustment per patient size (includes targeted exams where dose is matched to clinical indication); or iterative reconstruction. Contrast material: OMNIPAQUE 350; Contrast volume: 124 ml; Contrast route: IV; COMPARISON: CT ABDOMEN PELVIS W 10/20/2018 2:22 PM FINDINGS: Pleural space: Chronic left pleural effusion unchanged. Heart: Cardiomegaly. Liver: Pneumobilia in the left lobe of liver. Gallbladder and bile ducts: Biliary drainage tube enters through a defect in right upper quadrant wall passing into biliary tract with tip in duodenum, unchanged. Prior cholecystectomy. Pancreas: Pancreatic atrophy. Spleen: Normal. No splenomegaly. Adrenals: Normal. No mass. Kidneys and ureters: Interval increase in size of radiopaque calculus, right kidney, now measuring up to 1.4 cm. No hydronephrosis. Stomach and bowel: Prior gastric bypass. Appendix: No evidence of appendicitis. Intraperitoneal space: Normal. No free air. No significant fluid collection. Vasculature: Normal. No abdominal aortic aneurysm. Lymph nodes: Normal. No enlarged lymph nodes. Bladder: Unremarkable as visualized. Reproductive: Unremarkable as visualized. Bones/joints: Bones are demineralized. Multilevel Schmorl's nodes and hypertrophic endplate changes in visualized spine. Soft tissues: Left breast implant or alternatively chronic fluid collection, unchanged. Thinning of ventral abdominal and pelvic wall with ventral protrusion of gas-filled dilated colon in upper abdomen. There is gas-filled minimal distention of much of the colon. There is superimposed hernia containing fat and nondilated small bowel to the right of midline in the pelvis associated with multiple surgical clips, appearance unchanged. No small bowel dilatation demonstrated. IMPRESSION: Colonic ileus. Pneumobilia. Nonobstructing right renal calculus has increased in size. Thinning of anterior abdominal and pelvic wall with ventral protrusion of fat and bowel. Superimposed hernia is present to the right of midline in pelvis. Appearance has not significantly changed. Dictated and Authenticated by: Maximiliano Morin MD. Ordering:JV Dennis MD
[2019-05-05 00:29] VITALS: BP 81/47; PULSE 83; RESP 16; O2SAT 100
--- NOTE | 2019-05-06 17:14 | CMPROGNOTE_ITS ---
- If Service Date Differs Date of service: 05/06/19 Time of Service: 17:14 Care Management Progress Note CM contacted Prema at the request of provider. Prema does not have a follow up appointment with primary care until 05/20/19, CM requested on voicemail that practice schedule follow up post ED visit and concern for C-diff. Prema was prescribed Vancomycin oral for possible cdiff. This medication requires prior auth which should include documentation of any failed treatment with or allergy to Flagyl. Provider is out of the office at this point a new prescription cannot be obtained until tomorrow. CM did speak with Prema she reports she was started on Cipro for UTI prescribed by . CM noticed that patient has an allergy to this medications and contacted office which is closed. CM contacted [facility] and they do not have Cipro listed as an allergy. CM left a message for the primary care and instructed patient to observe for signs and symptoms of reaction including hives. Prema's caregiver is present over the phone and CM reviewed direction with her as well. CM will update provider in the morning and follow up with [facility] to schedule transport for visit once it is scheduled. CM will also fax this note to primary care. Juju Arriaga RN, BSN-ACM Arch Support Technician [phone] pg [phone]
--- NOTE | 2019-05-07 14:32 | W.ED.FU ---
 I reviewed urine culture growing enterococcus faecalis -sensitive to ampicillin, daptomycin, and vancomycin. Resistant to ciprofloxacin. I called and spoke with Dr. Gutiérrez, the patient's primary care physician, she is aware of this urine culture and is working to ensure that patient is compliant with vancomycin and will follow up with the patient.
== END 2019-05-05 00:55 | disposition home or self-care (01) ==
PROVIDERS: Emergency Provider Physician Assistant; PCP Family Medicine
DX: K56.7 Ileus, unspecified (principal); N39.0 Urinary tract infection, site not specified; B95.2 Enterococcus as the cause of diseases classified elsewhere
CPT/HCPCS: 36415; 51701; 80053; 87077; 96360; 99285; 74177; 81003; 81015; 83735; 84484; 85025; 87086; 87186; 99284; J3490; Q9967

== ENCOUNTER 2019-05-05 18:48 | Outpatient (REF) | payer MEDICAID, SELFPAY ==
[2019-05-06 22:18] LABS: Result Negative; Specimen Description Feces
== END 2019-05-05 19:08 ==
LOC: LBN 18:48
PROVIDERS: PCP Family Medicine; Visit Provider Physician Assistant
DX: R69 Illness, unspecified (principal)
CPT/HCPCS: 83630; 87324; 87798

== ENCOUNTER 2019-05-18 13:00 | Emergency (ER) | payer MEDICAID, SELFPAY ==
[2019-05-18] VITALS (28 sets, daily range): BP systolic 76–97; BP diastolic 47–65; PULSE 62–132; RESP 10–25; TEMP 36.8–37; O2SAT 90–99
--- NOTE | 2019-05-18 13:45 | ED.GENADUL_ITS ---
Discharge Plan Disposition Patient Disposition: HOME Condition: Stable Discharge Details Chief Complaint: Abd Prob Clinical Impression: Unspecified medical devices associated with adverse incidents Primary Care Provider: Sera Gutiérrez ED Provider: Morales Conte Home Meds and New Rx's Prescriptions: New nitrofurantoin monohyd/m-cryst [Macrobid] 100 mg capsule 100 mg PO BID Qty: 10 RF: 0 Continued sertraline [Zoloft] 50 MG tablet 100 mg PO DAILY RF: 0 clonazepam 1 MG tablet,disintegrating 2 tab PO HS RF: 0 ipratropium-albuterol 3 ML solution for nebulization 3 ml Inhalation QID RF: 0 lorazepam 0.5 MG tablet 0.5 mg PO QID PRNRF: 0 pantoprazole 40 MG tablet,delayed release (DR/EC) 40 mg PO DAILY RF: 0 cyclobenzaprine 10 MG tablet 10 mg PO BID RF: 0 calcium carbonate-vitamin D3 1 EACH tablet 2 tab PO BID RF: 0 Advair HFA 60 PUFF HFA aerosol inhaler 2 puff Inhalation BID RF: 0 anastrozole [Arimidex] 1 MG tablet 1 mg PO DAILY RF: 0 glucosamine sulfate 2KCl 1,000 MG tablet 500 mg PO BID RF: 0 Atrovent HFA 17 mcg/actuation Hfa Aerosol Inhaler 1 puff INHALATION TID RF: 0 dicyclomine [Bentyl] 10 mg/mL Solution 10 mg BID RF: 0 albuterol sulfate 2.5 mg /3 mL (0.083 %) Solution For Nebulization 2 inh Inhalation QID RF: 0 methylphenidate HCl [Ritalin] 10 mg Tablet 10 mg PO BID RF: 0 loperamide 2 mg Tablet 2 mg PO TID RF: 0 oxycodone-acetaminophen [Percocet] 5-325 mg Tablet 1 tab PO Q4H PRNRF: 0 benzonatate 100 mg Capsule 100 mg PO TID PRNRF: 0 ferrous sulfate 325 mg (65 mg iron) Tablet 325 mg PO DAILY RF: 0 triamcinolone acetonide [Kenalog] 0.147 mg/gram Aerosol 0.147 mg Topical BID RF: 0 cyanocobalamin (vitamin B-12) [Vitamin B-12] 100 MCG tablet 100 mcg PO DAILY RF: 0 ascorbic acid (vitamin C) [Vitamin C] 500 MG tablet 500 mg PO BID RF: 0 ergocalciferol (vitamin D2) [Vitamin D2] 50,000 UNITS capsule 50,000 units PO DIRECTED RF: 0 metoprolol tartrate 25 mg Tablet 25 mg PO TID RF: 0 Discharge Instructions Additional Instructions: your labs and imaging did not show any new concerning findings. Your specialist recommended uncapping your biliary drain when this happens give the prescription to home health and they should be able to get you your supplies follow up with your primary care provider within 1-2 weeks if you have severe worsening pain or high fevers return to the emergency department Discharge Data Discharge Date/Time-TO BE ENTERED AT DEPARTURE: 05/18/19 18:12 Medical Decision Making <Des Samayoa NP - Last Filed: 05/22/19 08:03> Patient presenting the emergency department via EMS per home health request due to abnormal biliary drainage. Home health nurse states that patient has not been feeling well for the past 2 days. Home health nurse states that today when she flush patient's biliary drain patient had 50-100ml of output which was abnormal for the patient. Patient denies any fever or chills. States back pain but associates this due to the ambulance ride here. Patient states that she always has urinary incontinence and because the drain has not been able to wear depends. Physical exam is unremarkable, drain site shows no signs of erythema, patient complains of diffuse abdominal tenderness but no focal findings are noted on exam. Given patient's history plan to check labs and CT imaging to make sure drain is appropriately place. Review of labs show unremarkable CBC. CMP that shows mildly elevated alk phos and low albumin otherwise nondiagnostic. Urinalysis shows positive nitrates and small amount of leukocyte esterase with greater than 50 WBCs. Possible concern for urinary tract infection which is make patient not feel well but still plan to do CT for possible biliary drain dysfunction. Plan to start patient Macrobid. Pending culture results Review of CT imaging and speaking with radiologist he states no interval changes from CT scan done on 05/04. [place] [facility] [place] <Morales Conte MD - Last Filed: 05/18/19 17:51> 63 yo female's labs and imaging shows no acute findings. She remains stable. [place] [facility] [place] if it drains she just needs to uncap it and drain it into a bag. We were able to connect it to a REMBERTO, and will have her gets bags as an outpatient and f/u with her gi specialist and pcp HPI <Des Samayoa NP - Last Filed: 05/22/19 08:03> General Mode of arrival: EMS . Date/Time Provider Initiated Documentation: 05/18/19 13:12 . Limitations to Documentation: no limitations . Information obtained by: patient, RN/MD and old records reviewed . History of Present Illness 63 year old F presents to the emergency department with the chief complaint of Biliary drain dysfunction, described as severe, with intensity rated at 9. Quality is described as sharp, and is localized to the back. Patient started experiencing this day(s) (1) and it has been constant. Patient did receive the following treatments prior to arrival, none Related Data Home Medications Medication Instructions Recorded Confirmed lorazepam 0.5 mg PO QID PRN 03/09/13 05/04/19 pantoprazole 40 mg PO DAILY 03/09/13 05/18/19 clonazepam 2 tab PO HS 10/03/14 05/18/19 sertraline [Zoloft] 100 mg PO DAILY tab-cap 10/03/14 05/18/19 Advair HFA 2 puff INHALATION BID 10/26/14 05/18/19 calcium carbonate-vitamin D3 2 tab PO BID 10/26/14 05/04/19 cyclobenzaprine 10 mg PO BID 10/26/14 05/18/19 anastrozole [Arimidex] 1 mg PO DAILY 12/18/16 05/18/19 glucosamine sulfate 2KCl 500 mg PO BID 12/18/16 05/18/19 ascorbic acid (vitamin C) [Vitamin 500 mg PO BID 05/30/17 05/04/19 C] cyanocobalamin (vitamin B-12) 100 mcg PO DAILY 05/30/17 05/18/19 [Vitamin B-12] ergocalciferol (vitamin D2) 50,000 units PO DIRECTED 05/30/17 05/18/19 [Vitamin D2] ipratropium-albuterol 3 ml INHALATION QID 02/12/18 05/18/19 metoprolol tartrate 25 mg PO TID 09/18/18 05/18/19 Atrovent HFA 1 puff INHALATION TID 10/20/18 05/18/19 albuterol sulfate 2 inh INHALATION QID 10/20/18 05/18/19 benzonatate 100 mg PO TID PRN 10/20/18 05/04/19 dicyclomine [Bentyl] 10 mg BID 10/20/18 05/04/19 ferrous sulfate 325 mg PO DAILY 10/20/18 05/18/19 loperamide 2 mg PO TID 10/20/18 05/04/19 methylphenidate HCl [Ritalin] 10 mg PO BID 10/20/18 05/18/19 oxycodone-acetaminophen [Percocet] 1 tab PO Q4H PRN 10/20/18 05/18/19 triamcinolone acetonide [Kenalog] 0.147 mg TOPICAL BID 10/20/18 05/04/19 nitrofurantoin monohyd/m-cryst 100 mg PO BID #10 cap 05/18/19 [Macrobid] Previous Rx's Medication Instructions Recorded nitrofurantoin monohyd/m-cryst 100 mg PO BID #10 cap 05/18/19 [Macrobid] Allergies Allergy/AdvReac Type Severity Reaction Status Date / Time haloperidol Allergy Severe seizure Unverified 05/18/19 13:07 cephalexin monohydrate Allergy Mild Unverified 05/18/19 13:07 [From Keflex] ciprofloxacin [From Cipro] Allergy Mild Hives Unverified 05/18/19 13:07 dextroamphetamine Allergy Unknown Unverified 05/18/19 13:07 doxylamine Allergy Unknown Unverified 05/18/19 13:07 eszopiclone [From Lunesta] Allergy Unknown Unverified 05/18/19 13:07 Penicillins Allergy Unknown Unverified 05/18/19 13:07 pseudoephedrine Allergy Unknown Unverified 05/18/19 13:07 Sulfa (Sulfonamide Allergy Unknown Unverified 05/18/19 13:07 Antibiotics) trazodone Allergy Unknown Unverified 05/18/19 13:07 venlafaxine HCl AdvReac Severe crazy Unverified 05/18/19 13:07 [From Effexor] dextromethorphan HBr AdvReac Intermediate muscle Unverified 05/18/19 13:07 [From NyQuil] twitch doxylamine succinate AdvReac Intermediate muscle Unverified 05/18/19 13:07 [From NyQuil] twitch omeprazole AdvReac Intermediate Diarrhea Unverified 05/18/19 13:07 pseudoephedrine HCl AdvReac Intermediate muscle Unverified 05/18/19 13:07 [From NyQuil] twitch chlorpromazine HCl AdvReac passes out Unverified 05/18/19 13:07 [From Thorazine] General Stated Complaint: Abd Prob GRISELDA: 3 Review of Systems <Des Samayoa NP - Last Filed: 05/22/19 08:03> Constitutional Denies chills, Denies fever(s) and Reports poor appetite Cardiovascular Denies chest pain and Denies dyspnea Respiratory Denies cough and Denies dyspnea Gastrointestinal Reports as per HPI, Reports abdominal pain, Denies melena, Reports bloating, Denies change in bowel habits, Denies constipation, Denies diarrhea, Reports nausea and Denies vomiting Genitourinary Denies hematuria and Denies dysuria Integumentary/Breasts Denies rash PFSH <Des Samayoa NP - Last Filed: 05/22/19 08:03> Medical History ADD (attention deficit disorder) Angina at rest Asthma Atrial fibrillation (Chronic) Atrial fibrillation Bilateral cataracts (Chronic) Breast cancer Chest pain, atypical Chronic back pain (Chronic) Chronic pain Chronic rhinitis Cirrhosis of liver Compression fracture of spine Decreased visual acuity Depression (Chronic) Depression Diastolic heart failure (Chronic) Diastolic heart failure DJD (degenerative joint disease) (Chronic) Gastric bypass status for obesity GI (gastrointestinal bleed) History of DVD (Chronic) History of paroxysmal supraventricular tachycardia History of PSVT (paroxysmal supraventricular tachycardia) (Chronic) Hx of deep venous thrombosis Hyperparathyroidism , secondary, non-renal Hypertension IBS (irritable bowel syndrome) Insomnia Morbid obesity Morbid obesity with BMI of 45.0-49.9, adult (Chronic) STACEY (obstructive sleep apnea) (Chronic) STACEY (obstructive sleep apnea) Osteoarthritis Osteopenia Oxygen dependent Paroxysmal atrial fibrillation (Chronic) PUD (peptic ulcer disease) Pulmonary HTN Right heart failure with reduced right ventricular function (Chronic) Superficial thrombophlebitis Tricuspid regurgitation Surgical History Breast, Mastectomy EGD - MAC Gastric Bypass History of biliary T-tube placement (Resolved 09/01/18) Family History Mother COPD (chronic obstructive pulmonary disease) Father Glioblastoma Son No problems noted. Son Bipolar 1 disorder ADHD Diabetes Social History Smoking/Tobacco Use Status: Former Tobacco Use Alcohol Intake: never Drug use: Never Substance use type: does not use Caregiver/Support person: No Household members: none Housing: apartment Number of Children: 2 number of grandchildren: 1 Do you feel safe at home: Yes Do you feel safe in your relationship?: Yes Exam <Des Samayoa NP - Last Filed: 05/22/19 08:03> Const General: cooperative Orientation: alert, awake and oriented x3 Resp Effort & Inspection: normal respiratory effort and able to speak in complete sentences Auscultation: clear to auscultation bilaterally Cardio Rate: regular rate Rhythm: regular rhythm Heart Sounds: S1 normal and S2 normal GI Inspection: other (Biliary drain present, right side of abdomen, no erythema or drain) Palpation: soft, no hepatosplenomegaly, not firm, no guarding, no masses, no pulsatile masses, not rigid, no splenomegaly and tender (Diffuse nonfocal) Auscultation: normal bowel sounds Back/Spine/Pelvis Thoracic/Lumbar Spine: paraspinal tenderness and other (Diffuse nonfocal back pain) Neuro General: alert, awake, oriented x3, gait normal and moves all extremities Course <Des Samayoa NP - Last Filed: 05/22/19 08:03> Vital Signs Temperature 37 C 05/18/19 13:03 Pulse 84 05/18/19 13:03 Respiratory Rate 14 05/18/19 13:03 Blood Pressure 97/61 L 05/18/19 13:03 Pulse Oximetry 93 L 05/18/19 13:03 Temperature 37 C 05/18/19 13:03 Temperature Source Skin 05/18/19 13:03 Pulse 84 05/18/19 13:03 Respiratory Rate 14 05/18/19 13:03 Respiratory Effort Non-Labored 05/18/19 13:06 Blood Pressure 97/61 L 05/18/19 13:03 Blood Pressure Position Sitting 05/18/19 13:03 Pulse Oximetry 93 L 05/18/19 13:03 Oxygen Delivery Method Room Air 05/18/19 13:03 Oxygen Flow Rate 0 05/18/19 13:03 Pain Level 9 05/18/19 13:03 Sign Out <Des Samayoa NP - Last Filed: 05/22/19 08:03> Sign Out Data: Sign Out Comment: Signed out to Dr. Conte pending review of [facility] records along with possible consult to GI for biliary drainage Last updated by Des Samayoa NP at 05/18/19 16:26
[2019-05-18 13:47] LABS: Lactate-non-spesis 1.3 mmol/l (0.6-1.4)
[2019-05-18 13:51] LABS: Abs Immature Grans 0.01 k/cumm (0.0-0.09); Absolute Basophil Count 0.02 k/cumm (0.0-0.2); Absolute Eosinophil Count 0.28 k/cumm (0.0-0.7); Absolute Lymphocyte Count 1.01 k/cumm (1.2-3.4); Absolute Monocyte Count 0.36 k/cumm (0.11-0.7); Absolute Neutrophil Count 4.62 k/cumm (1.2-6.7); Basophils % 0.3; Eosinophils % 4.4; HCT 45.3 % (36.0-46.0); HGB 14.1 g/dL (12.0-15.5); Immature Grans % 0.2; Mean Corp. HGB Concentration 31.1 g/dL (32.0-36.0); Mean Corpuscular Hemoglobin 32.6 pg (27.0-33.0); Mean Corpuscular Volume 104.6 fL (80-95); Mean Platelet Volume 10.9 fL (8.0-11.0); Monocytes % 5.7; Neutrophils % 73.4; Platelet Count 146 x1000/uL (130-400); RBC 4.33 m/cumm (4.00-5.20); RBC Distribution Width 13.2 % (11.7-14.6)
[2019-05-18 14:16] LABS: Bilirubin Negative (Negative); Blood Small (Negative); Clarity Cloudy (Clear); Glucose Negative (Negative); Ketones Negative (Negative); Leukocyte Esterase Small (Negative); Nitrite Positive (Negative); Urobilinogen 0.2 EU/dL (Up TO 0.2)
[2019-05-18 14:19] LABS: ALT 14 U/L (12-78); AST 18 U/L (15-37); Albumin 2.6 g/dL (3.4-5.0); Alkaline Phosphatase 133 U/L (46-116); Anion Gap 5.3 mmol/L (3-11); BUN 10 mg/dL (7-18); Bilirubin, Total 0.4 mg/dL (0.2-1.0); CO2 30.7 mmol/L (21.0-32.0); CREATININE 0.76 mg/dL (0.55-1.02); Calcium 8.3 mg/dL (8.5-10.1); Chloride 104 mmol/L (98-107); Glucose 89 mg/dL (70-100); Potassium 3.6 mmol/L (3.5-5.1); Sodium 140 mmol/L (136-145); Total Protein 6.7 g/dL (6.4-8.2)
[2019-05-18 14:25] LABS: Bacteria Packed HPF (Negative); WBC >50 HPF (0-5)
[2019-05-18 14:26] LABS: C & S Indicated? Yes
--- NOTE | 2019-05-18 14:26 | DI.CT_ITS ---
SYMPTOMS/DIAGNOSIS: BILIARY DRAIN DYSFUNCTION CT SCAN OF THE ABDOMEN AND PELVIS: Comparison is 05/04/19. There has been no significant change in the bilateral pleural effusions and subjacent infiltrates. The liver is normal in size. No suspicious hepatic masses seen. The portal, superior mesenteric and splenic veins are patent. The patient is status post cholecystectomy. There is again seen a biliary drain; the pigtail of the drain is seen in the third portion of the duodenum. It is unchanged in position. No abnormal fluid collections are seen in the region of the gallbladder fossa. There is atrophy of the pancreas, which is grossly unremarkable. The spleen is unremarkable, as are the adrenal glands. The kidneys show normal and symmetric enhancement. No solid renal mass or obstruction is identified. The urinary bladder is intact. Reproductive organs are unremarkable as visualized. The bowel shows no evidence of obstruction or inflammation. No findings to suggest an acute appendicitis are present. No significant abdominal or pelvic adenopathy, ascites or pneumoperitoneum is present. Note is made of a persistent subcutaneous fluid collection overlying the left upper abdomen. The bones are osteopenic. There are degenerative changes present throughout the spine. Multilevel central spinal canal and neural foraminal stenosis is present. There are compression deformities again seen involving L2 and L3. These appear stable. There is also mild compression deformity involving the superior endplate of L4, which appears unchanged. IMPRESSION: No acute change in appearance of the abdomen and pelvis since 05/04/19. Stable appearance of the biliary stent. The findings were discussed with the Emergency Department on the date of the examination.
[2019-05-18] MEDS: Omnipaque 350 MG/ML 100 ML BTL IJ (15:24)
[2019-05-18] MEDS: Normal Saline Flush 10 ML SYR IVP (15:24)
[2019-05-18] MEDS: MacroBID 100 MG CAP PO (17:55)
--- NOTE | 2019-05-18 18:26 | NUR.NOTE ---
REMBERTO drain attached to biliary tubing to collect drainage.Nursing Note:
== END 2019-05-18 18:12 | disposition home or self-care (01) ==
PROVIDERS: Nurse Practitioner Family; Emergency Provider Emergency Medicine; PCP Family Medicine
DX: T85.698A Other mechanical complication of other specified internal prosthetic devices, implants and grafts, initial encounter (principal); I10 Essential (primary) hypertension; Z96.89 Presence of other specified functional implants
CPT/HCPCS: 36415; 80053; 87077; 96374; 99285; 74177; 81003; 81015; 83605; 85025; 87086; 87186; 99284; J3490

== ENCOUNTER 2019-05-24 03:23 | Inpatient (IN) | payer MEDICAID, SELFPAY ==
[2019-05-24] VITALS (94 sets, daily range): BP systolic 61–107; BP diastolic 34–75; PULSE 97–140; RESP 1–23; TEMP 36.2–37.4; O2SAT 92–100
--- NOTE | 2019-05-24 03:31 | DI.CT_ITS ---
SYMPTOMS/DIAGNOSIS: UPPER ABD PAIN, ? ACUTE PROCESS, H/O BILIARY DRAIN CT SCAN OF THE CHEST, ABDOMEN AND PELVIS: Noncontrast examination was performed. Comparisons are 04/26/18 and 05/18/19. CT SCAN OF THE ABDOMEN AND PELVIS: The percutaneous biliary drain is in place. A pigtail catheter is seen in the duodenum, unchanged in position. The unenhanced liver is grossly unremarkable. The patient is status post cholecystectomy. There is no biliary ductal dilatation. There is fatty atrophy of the pancreas which is otherwise unremarkable. The spleen and adrenal glands are unremarkable. Incidental note is made of an accessory spleen. The kidneys show no evidence of hydronephrosis. There are nonobstructing stones seen in the superior pole of the right kidney. The urinary bladder is intact. The reproductive organs are unremarkable as visualized. There is atherosclerosis of the abdominal aorta but no aneurysmal dilatation is present. There has been interval placement of a central venous catheter via the left femoral approach. The significant abdominal or pelvic adenopathy, ascites or pneumoperitoneum is present. There is again diastasis of the anterior abdominal wall containing an unremarkable loop of small bowel. There are post surgical changes of a prior gastric bypass surgery. In the right lower quadrant there are post surgical changes of a prior small bowel resection and anastomosis. There is mild thickening of the wall of the small bowel in this region but no evidence to suggest obstruction. The degree of small bowel thickening may be slightly increased compared to the prior examination but this may be due to underdistention of the bowel. There is a linear area of sclerosis seen in the right femoral neck. This was present on the prior examination. IMPRESSION: 1. No evidence of bowel obstruction or free fluid in the abdomen or pelvis. 2. Stable location of the percutaneous biliary drain. 3. Status post gastric bypass. 4. Status post small bowel resection with anastomosis in the right lower quadrant. No evidence of obstruction. 5. Interval placement of a central venous catheter via the left femoral approach. Infiltration of the adjacent soft tissues is noted. These may be post procedural changes. No focal fluid collection is seen to suggest an abscess. 6. Linear sclerosis seen in the right femoral neck. CT SCAN OF THE CHEST: The thoracic aorta is intact and normal in caliber. There is mild cardiomegaly. No significant pericardial effusion is seen. No significant thoracic adenopathy is present. The fluid collection seen in the left lower quadrant is unchanged compared to 04/26/18. There is a right basilar infiltrate which may represent atelectasis or pneumonia. The area of scarring in the left lung apex is unchanged compared to 04/26/18. This may represent scarring. No other infiltrates are appreciated. The fluid collection in the subcutaneous tissues overlying the left chest wall is stable. No acute osseous abnormality is identified. IMPRESSION: 1. Stable left pleural effusion with pleural thickening. 2. Stable opacity in the left lung apex, unchanged since 04/26/18. This may represent an area of scarring. 3. Right basilar infiltrate which may represent atelectasis or pneumonia. 4. Stable fluid collection in the soft tissues overlying the left chest wall.
--- NOTE | 2019-05-24 03:33 | W.ED.GENAD ---
Discharge Plan Disposition Patient Disposition: [facility] INPATIENT Condition: Critical Discharge Details Chief Complaint: Abd Prob Clinical Impression: Sepsis, Hypotension, Abdominal pain, Acute kidney injury Admit Date/Time: 05/24/19 10:19 Admit Provider: Francheska Charles Attending Provider: Francheska Charles Primary Care Provider: Sera Gutiérrez ED Provider: Shade Saunders Discharge Data Discharge Date/Time-TO BE ENTERED AT DEPARTURE: 05/24/19 11:37 Medical Decision Making <Sandrine Yanes DO - Last Filed: 05/28/19 08:26> 0325 -- 63-year-old female with a history of atrial fibrillation, CHF, GI bleed, obstructive sleep apnea, morbid obesity, gastric bypass, h/o septic shock presumably due to cholangitis requiring percutaneous cholecystomy and biliary tube in Aug 2018 who presents with abdominal pain and nausea that started at 2 AM. Patient has been seen here 2 times in the past month for similar nausea and abdominal pain and had [address] abd/pelvis scans. BP per EMS 80/64, HR 120s, O2 sat 89% on RA, Temp 97.8 Pt returns early this am with similar pain but more intense. She is a poor historian and moaning with a low voice, difficult to obtain full history. Temp on arrival 97.2, heart rate 120s, blood pressure 90/58, O2 sat 98% on 4L. She has mild to moderate upper abdominal tenderness. No pulsatile mass. Differential diagnosis includes sepsis, ACS, PE, AAA, small bowel obstruction, acute abdominal process related to biliary T-tube, cholangitis. EKG notes a rate of 128, sinus, [address] depression in lead 1, no acute ST elevation. 0630 --significant delay in obtaining blood work and IV due to poor peripheral access. Patient was eventually agreeable to have IV placed in left upper extremity which was obtained. At the same time a left femoral central line was placed. During this process anesthesia was paged to help with IV and placed a R midline IV. Patient's systolic blood pressure range between 70s and 80s during this. Shortly after fluids started, systolic blood pressure 90s to 100s. Patient remained conversational, alert and oriented throughout all of this. Her heart rate is also improved to the 110s. Advance directives on file state that patient would like intubation and CPR but the chart stated that she is DNR/DNI. Patient initially stated she would want CPR but not intubation but now states she does not want CPR or intubation. 0645 -- patient wanted me to update family, Sister Kerline ([phone]) and son Emery ([phone]) called on phone and notified. 0650 -- heart rate 90s. Blood pressure 96/47. Echo from 10/2016 EF 50-55%. Labs reviewed. White blood cell count 12.95. Lactate 2.1. Creatinine 2.62. GFR 18, significant change from 6 days ago which her creatinine was 0.76 and GFR was greater than 60. UA notes 5-10 WBCs, urine culture sent. Will change CT chest abdomen pelvis from with contrast to without contrast. Pt has multiple antibiotic allergies. Will give a dose of flagyl and aztreonam. 4653 -- case endorsed to Dr. Saunders to f/u on CT results and if needed [facility] GI and then final disposition. Medical Records Medical records reviewed: Yes I reviewed the patient's medical records. Lab Data Lab results reviewed: Yes I reviewed the patient's lab results. ECG Data Attestation: I personally reviewed and interpreted this ECG (s) as follows: Interpretation: rate of 128, sinus, 1mm ST depression in lead I, no acute ST elevation, QTc 423, QRS 94. <Shade Saunders MD - Last Filed: 05/24/19 10:03> Received signout from Dr. Yanes. Please see her note regarding details of the presentation, history of present illness, exam, initial care and plan. Patient remained stable. She states to me that she wishes to have a focus on comfort. When I asked her if she wanted things such as ICU level care, pressor medications, further attempts at IVs she stated she wished to be made comfortable. She has a long history of being DNR, DNI, and wishing to not have procedures done at [facility]. Patient received 3 L of fluid, antibiotics, and underwent central line placement as per previous notes. Her CT scan reveals dense airspace consolidation left apex. Small left pleural effusion. Known transhepatic catheter. Left femoral central venous catheter. Mild thickening at area of prior anastomosis. Consistent with pneumonia, cannot exclude empyema. As per patient's above mentioned wishes, I have contacted palliative care with whom she has previously established care. Patient interviewed by care management in the emergency department. She will be admitted to the hospitalist service, Dr. Charles. HPI <Sandrine Yanes DO - Last Filed: 05/28/19 08:26> General Mode of arrival: EMS. Date/Time Provider Initiated Documentation: 05/24/19 04:12. Limitations to Documentation: no limitations. Information obtained by: patient. HPI Narrative: Patient is a 63-year-old female with a history of atrial fibrillation, breast cancer, cirrhosis, CHF, SVT, morbid obesity, gastric bypass, biliary T-tube who presents with a complaint of upper abdominal pain and nausea for the past few days. Patient is a poor historian, is moaning in pain, has a very low voice and is difficult to obtain a history. She points to her epigastric region as the area of pain. She states pain has been similar to pain that she has been seen here for 2 times this month but more intense. She admits to feeling hot but denies any known fever. She denies any known urinary symptoms. She states she recently had the biliary T-tube replaced to a bigger tube per home health, but cannot state when the T-tube was placed, possibly a few months to a few years ago at [facility]. Patient states she does not want to go to [facility]. Related Data Home Medications Medication Instructions Recorded Confirmed lorazepam 0.5 mg PO QID PRN 03/09/13 05/24/19 pantoprazole 40 mg PO DAILY 03/09/13 05/24/19 clonazepam 2 tab PO HS 10/03/14 05/24/19 sertraline [Zoloft] 100 mg PO DAILY tab-cap 10/03/14 05/24/19 Advair HFA 2 puff INHALATION BID 10/26/14 05/24/19 calcium carbonate-vitamin D3 2 tab PO BID 10/26/14 05/24/19 cyclobenzaprine 10 mg PO BID 10/26/14 05/18/19 anastrozole [Arimidex] 1 mg PO DAILY 12/18/16 05/24/19 glucosamine sulfate 2KCl 500 mg PO BID 12/18/16 05/24/19 ascorbic acid (vitamin C) [Vitamin 500 mg PO BID 05/30/17 05/24/19 C] cyanocobalamin (vitamin B-12) 100 mcg PO DAILY 05/30/17 05/18/19 [Vitamin B-12] ergocalciferol (vitamin D2) 50,000 units PO DIRECTED 05/30/17 05/18/19 [Vitamin D2] ipratropium-albuterol 3 ml INHALATION QID 02/12/18 05/24/19 metoprolol tartrate 25 mg PO TID 09/18/18 05/24/19 Atrovent HFA 1 puff INHALATION TID 10/20/18 05/24/19 albuterol sulfate 2 inh INHALATION QID 10/20/18 05/24/19 benzonatate 100 mg PO TID PRN 10/20/18 05/24/19 dicyclomine [Bentyl] 10 mg BID 10/20/18 05/04/19 ferrous sulfate 325 mg PO DAILY 10/20/18 05/24/19 loperamide 2 mg PO TID 10/20/18 05/24/19 methylphenidate HCl [Ritalin] 10 mg PO BID 10/20/18 05/24/19 oxycodone-acetaminophen [Percocet] 1 tab PO Q6H PRN PRN 10/20/18 05/24/19 triamcinolone acetonide [Kenalog] 0.147 mg TOPICAL BID 10/20/18 05/24/19 nitrofurantoin monohyd/m-cryst 100 mg PO BID #10 cap 05/18/19 05/24/19 [Macrobid] Previous Rx's Medication Instructions Recorded nitrofurantoin monohyd/m-cryst 100 mg PO BID #10 cap 05/18/19 [Macrobid] Allergies Allergy/AdvReac Type Severity Reaction Status Date / Time haloperidol Allergy Severe seizure Unverified 05/24/19 03:30 cephalexin monohydrate Allergy Mild Unverified 05/24/19 03:30 [From Keflex] ciprofloxacin [From Cipro] Allergy Mild Hives Unverified 05/24/19 03:30 dextroamphetamine Allergy Unknown Unverified 05/24/19 03:30 doxylamine Allergy Unknown Unverified 05/24/19 03:30 eszopiclone [From Lunesta] Allergy Unknown Unverified 05/24/19 03:30 Penicillins Allergy Unknown Unverified 05/24/19 03:30 pseudoephedrine Allergy Unknown Unverified 05/24/19 03:30 Sulfa (Sulfonamide Allergy Unknown Unverified 05/24/19 03:30 Antibiotics) trazodone Allergy Unknown Unverified 05/24/19 03:30 venlafaxine HCl AdvReac Severe crazy Unverified 05/24/19 03:30 [From Effexor] dextromethorphan HBr AdvReac Intermediate muscle Unverified 05/24/19 03:30 [From NyQuil] twitch doxylamine succinate AdvReac Intermediate muscle Unverified 05/24/19 03:30 [From NyQuil] twitch omeprazole AdvReac Intermediate Diarrhea Unverified 05/24/19 03:30 pseudoephedrine HCl AdvReac Intermediate muscle Unverified 05/24/19 03:30 [From NyQuil] twitch chlorpromazine HCl AdvReac passes out Unverified 05/24/19 03:30 [From Thorazine] General Stated Complaint: Abd Prob GRISELDA: 2 Review of Systems <Sandrine Yanes DO - Last Filed: 05/28/19 08:26> Review of Systems All systems reviewed & are unremarkable except as noted in HPI and below Constitutional Reports as per HPI, Denies chills and Denies fever(s) Eyes Denies blurry vision ENT Denies dizziness, Denies sore throat and Denies throat swelling Cardiovascular Denies chest pain and Denies dyspnea Respiratory Denies cough and Denies dyspnea Gastrointestinal Reports abdominal pain, Denies diarrhea, Reports nausea and Denies vomiting Genitourinary Denies hematuria and Denies dysuria Musculoskeletal Denies back pain and Denies numbness Integumentary/Breasts Denies lesions and Denies rash Neurologic Denies dizziness, Denies focal weakness and Denies numbness Allergic/Immunologic Denies throat swelling PFSH <Sandrine Yanes DO - Last Filed: 05/28/19 08:26> Medical History (Updated 05/27/19 @ 12:11 by Francheska Charles MD) ADD (attention deficit disorder) Angina at rest Anxiety (Chronic) Asthma Atrial fibrillation (Chronic) Atrial fibrillation Bilateral cataracts (Chronic) Breast cancer Chest pain, atypical Chronic back pain (Chronic) Chronic pain Chronic rhinitis Cirrhosis of liver Compression fracture of spine Decreased visual acuity Depression (Chronic) Depression Diastolic heart failure (Chronic) Diastolic heart failure DJD (degenerative joint disease) (Chronic) Gastric bypass status for obesity GI (gastrointestinal bleed) History of DVD (Chronic) History of paroxysmal supraventricular tachycardia History of PSVT (paroxysmal supraventricular tachycardia) (Chronic) Hx of deep venous thrombosis Hyperparathyroidism , secondary, non-renal Hypertension IBS (irritable bowel syndrome) Illiterate (Acute) Insomnia Morbid obesity Morbid obesity with BMI of 45.0-49.9, adult (Chronic) STACEY (obstructive sleep apnea) (Chronic) STACEY (obstructive sleep apnea) Osteoarthritis Osteopenia Oxygen dependent Paroxysmal atrial fibrillation (Chronic) PUD (peptic ulcer disease) Pulmonary HTN Right heart failure with reduced right ventricular function (Chronic) Superficial thrombophlebitis Tricuspid regurgitation Surgical History Breast, Mastectomy EGD - MAC Gastric Bypass History of biliary T-tube placement (Resolved 09/01/18) Family History Mother COPD (chronic obstructive pulmonary disease) Father Glioblastoma Son No problems noted. Son Bipolar 1 disorder ADHD Diabetes Social History Smoking/Tobacco Use Status: Former Tobacco Use Second Hand Exposure: No Alcohol Intake: never Drug use: Never Substance use type: does not use Caregiver/Support person: No Household members: none Housing: apartment Number of Children: 2 number of grandchildren: 1 Communication Needs: Cannot Read Education Level: middle school Do you need help understanding health information?: Always Do you feel safe at home: Yes Do you feel safe in your relationship?: Yes Exam <Sandrine Yanes DO - Last Filed: 05/28/19 08:26> Const General: cooperative, healthy appearing and no acute distress HENMT Head: normal to inspection Ears: hearing grossly normal bilaterally and external ears normal Face and sinus: normal facial exam Mouth: mucous membranes dry Eyes General: appearance normal, both eyes and all related structures EOM: EOM intact bilaterally Neck Neck: normal visual inspection and No submandibular swelling Lymphatic: no lymphadenopathy noted Chest Chest: normal inspection of the chest and no tenderness Resp Effort & Inspection: normal respiratory effort and able to speak in complete sentences Auscultation: clear to auscultation bilaterally Cardio Rate: regular rate Rhythm: regular rhythm GI Inspection: normal to inspection and other (T tube RUQ;no drainage @ site;nontender/no erythema.Brown fluid in bag. ) Palpation: soft, not firm, not rigid and tender (upper abdomen ) Auscultation: normal bowel sounds Skin General skin exam: no rashes or lesions noted Neuro General: alert, awake and oriented x3 Cognition: normal cognition Speech: speech normal Motor: muscle tone normal throughout Sensory Exam: no sensory deficits noted Extrem General: normal to inspection, full ROM, normal capillary refill, no calf tenderness bilaterally and no edema Psych Appearance: grossly normal Mental Status: mental status grossly normal Speech and Movement: speech and movement normal Affect: normal affect Course <DO Marcell Paez Last Filed: 05/28/19 08:26> Vital Signs Temperature 97.2 F L 05/24/19 03:21 Pulse 126 H 05/24/19 03:21 Respiratory Rate 18 05/24/19 03:21 Blood Pressure 90/58 L 05/24/19 03:21 Pulse Oximetry 92 L 05/24/19 03:21 Temperature 97.9 F 05/24/19 03:31 Temperature Source Oral 05/24/19 03:31 Pulse 126 H 05/24/19 03:21 Respiratory Rate 18 05/24/19 03:21 Respiratory Effort Non-Labored 05/24/19 03:29 Blood Pressure 90/58 L 05/24/19 03:21 Pulse Oximetry 92 L 05/24/19 03:21 Oxygen Delivery Method Nasal Cannula 05/24/19 03:21 Oxygen Flow Rate 6 05/24/19 03:21 Lab/Test Results Lab/Test Results: 05/24/19 03:31 Blood Blood Culture - Pending 05/24/19 03:31 Blood Blood Culture - Pending Procedures <DO Marcell Paez Last Filed: 05/28/19 08:26> Central Line Placement Left Femoral: Time Out Performed: Yes Patient Placed on Monitor/Pulse Ox: Yes Prep: mask, gown and gloves Central Line Prep: Chlorhexidine scrub and sterile drapes applied Local Anesthetic: Lidocaine 1% and with Epi Amount of anesthesia used (mL): 10 Ultrasound Used for Placement: No Central Line Lumen Inserted: triple Post Procedure: good blood return, all ports aspirated, flushed, capped and sutured in place with 3-0 nylon Patient Tolerated Procedure: well Complications: none Critical Care Time <Sandrine Yanes DO - Last Filed: 05/28/19 08:26> Critical Care Time: Yes Total Critical Care Time: 90 (minutes while attempting to obtain blood work, and peripheral and central IV access while hypotensive) Sign Out <Sandrine Yanes DO - Last Filed: 05/28/19 08:26> Sign Out Data: Sign Out Comment: Follow-up on CT results, pending labs, [facility] GI/surgery/IR if needed pending CT results and final disposition Last updated by Sandrine Yanes DO at 05/24/19 07:12
[2019-05-24 04:52] LABS: Bilirubin Small (Negative); Blood Small (Negative); Clarity Clear (Clear); Glucose Negative (Negative); Ketones 15 mg/dL (Negative); Leukocyte Esterase Small (Negative); Nitrite Negative (Negative); Specific Gravity 1.025 (1.005-1.025); Urobilinogen 0.2 EU/dL (Up TO 0.2)
[2019-05-24 05:08] LABS: Bacteria Few HPF (Negative); C & S Indicated? Yes; Casts Negative LPF (Negative); Crystals Negative HPF (Negative); Epithelial Cells Rare HPF (Negative); Mucus Negative (Negative); Other Cells Moderate Yeast (Negative); RBC 0-2 (0-2)
[2019-05-24] MEDS: Normal Saline 1,000 ML 1000 ML IV ×5 (05:52→07:07)
[2019-05-24 06:27] LABS: Abs Immature Grans 0.02 k/cumm (0.0-0.09); Absolute Basophil Count 0.04 k/cumm (0.0-0.2); Absolute Eosinophil Count 0.04 k/cumm (0.0-0.7); Absolute Lymphocyte Count 1.42 k/cumm (1.2-3.4); Absolute Monocyte Count 0.87 k/cumm (0.11-0.7); Basophils % 0.3; Eosinophils % 0.3; HCT 53.2 % (36.0-46.0); HGB 16.8 g/dL (12.0-15.5); Immature Grans % 0.2; Mean Corp. HGB Concentration 31.6 g/dL (32.0-36.0); Mean Corpuscular Hemoglobin 32.2 pg (27.0-33.0); Mean Corpuscular Volume 102.1 fL (80-95); Mean Platelet Volume 11.3 fL (8.0-11.0); Monocytes % 6.7; Neutrophils % 81.5; Platelet Count 197 x1000/uL (130-400); RBC 5.21 m/cumm (4.00-5.20); RBC Distribution Width 13.6 % (11.7-14.6)
[2019-05-24 06:31] LABS: Lactate-non-spesis 2.1 mmol/l (0.6-1.4)
[2019-05-24 06:35] LABS: Absolute Neutrophil Count 10.55 k/cumm (1.2-6.7); White Blood Cell Count 12.95 k/cumm (4.4-10.8)
[2019-05-24 06:48] LABS: ALT 7 U/L (12-78); AST 10 U/L (15-37); Alkaline Phosphatase 163 U/L (46-116); Anion Gap 12.3 mmol/L (3-11); BUN 36 mg/dL (7-18); Bilirubin, Total 0.7 mg/dL (0.2-1.0); CO2 26.7 mmol/L (21.0-32.0); CREATININE 2.62 mg/dL (0.55-1.02); Calcium 8.5 mg/dL (8.5-10.1); Chloride 100 mmol/L (98-107); Estimated GFR 18.37 (mL/min/1.73m2); Glucose 136 mg/dL (70-100); Lipase 27 U/L (73-393); Magnesium 2.2 mg/dL (1.8-2.4); Potassium 3.7 mmol/L (3.5-5.1); Sodium 139 mmol/L (136-145); Total Protein 7.4 g/dL (6.4-8.2)
[2019-05-24 06:49] LABS: Troponin I < 0.05 ng/mL (0.00-0.06)
[2019-05-24 07:17] LABS: INR 1.1 (0.9-1.1); PTT Activated 24.9 sec (21.0-31.4); Prothrombin Time 11.3 sec (9.3-11.0)
[2019-05-24] MEDS: metroNIDAZOLE 500 MG/100 ML BAG 100 MG IVPB ×3 (07:40→21:09)
[2019-05-24] MEDS: AZTREONAM 2,000 MG in Normal Saline 100 ML 200 MG IVPB ×2 (08:00→18:35)
--- NOTE | 2019-05-24 08:03 | NUR.NOTE ---
Nursing Note: MD Saunders made aware of current BP 85/61. No orders recieved at this time.
--- NOTE | 2019-05-24 08:36 | DI.VRAD_ITS ---
EXAM: CT Chest Without Contrast EXAM DATE/TIME: 05/24/2019 6:55 AM CLINICAL HISTORY: 63 years old, female; Other: Upper abd pain, R/O acute abd process, modified due to labs to w/o contrast; Patient HX: H/o biliary drain TECHNIQUE: Imaging protocol: Axial computed tomography images of the chest without intravenous contrast. Coronal and sagittal reformatted images were created and reviewed. Radiation optimization: All CT scans at this facility use at least one of these dose optimization techniques: automated exposure control; mA and/or kV adjustment per patient size (includes targeted exams where dose is matched to clinical indication); or iterative reconstruction. COMPARISON: CT ABDOMEN PELVIS W 05/18/2019 3:24 PM FINDINGS: Lungs: Dense airspace consolidation left apex. Air bronchograms. -Subtle airspace disease right lung base. Pleural space: Small pleural effusion with pleural thickening left hemithorax inferiorly. Empyema within the differential diagnosis. Heart: No pericardial effusion Borderline cardiomegaly Mediastinum: Soft tissues of the mediastinum appear unremarkable. Aorta: Unremarkable. No aortic aneurysm. Lymph nodes: Unremarkable. No enlarged lymph nodes. Bones/joints: Unremarkable. No acute fracture. Soft tissues: Fluid filled structure in the soft tissues about the left breast. Stable. Other findings: -thoracic inlet is unremarkable. IMPRESSION: 1. Dense airspace consolidation left apex. Air bronchograms. 2. Fluid filled structure in the soft tissues about the left breast. Stable. 3. Small pleural effusion with pleural thickening left hemithorax inferiorly. Empyema within the differential diagnosis. Correlate regarding known history. 4. -Subtle airspace disease right lung base. Tiny pleural effusion EXAM: CT Abdomen and Pelvis Without Contrast EXAM DATE/TIME: 05/24/2019 6:55 AM CLINICAL HISTORY: 63 years old, female; Other: Upper abd pain, R/O acute abd process, modified due to labs to w/o contrast; Patient HX: H/o biliary drain TECHNIQUE: Imaging protocol: Axial computed tomography images of the abdomen and pelvis without contrast. Coronal and sagittal reformatted images were created and reviewed. Radiation optimization: All CT scans at this facility use at least one of these dose optimization techniques: automated exposure control; mA and/or kV adjustment per patient size (includes targeted exams where dose is matched to clinical indication); or iterative reconstruction. COMPARISON: CT ABDOMEN PELVIS W 05/18/2019 3:24 PM FINDINGS: Tubes, catheters and devices: Percutaneously placed transhepatic catheter. Pigtail within the duodenum. No intrahepatic biliary dilatation. Central venous catheter via the left femoral approach. Inflammation in the soft tissues about the access site. Liver: Normal. No mass. Gallbladder and bile ducts: See Tubes, Catheters And Devices Finding. Pancreas: Normal. No ductal dilation. Spleen: -Small accessory spleen is present. Adrenals: Normal. No mass. Kidneys and ureters: Normal. No hydronephrosis. Stomach and bowel: -Moderate amount stool is present throughout the large bowel. Air-filled large bowel. Nondilated. Prior gastric bypass. Prior resection of the small bowel with the anastomosis in the right lower abdomen. Mild thickening. No evidence of obstruction however. See image #109 series 2. Appendix: No evidence of appendicitis. Intraperitoneal space: No free fluid within the pelvis or within the dependent portions of the peritoneum. Vasculature: Normal. No abdominal aortic aneurysm. Lymph nodes: Normal. No enlarged lymph nodes. Bladder: Unremarkable as visualized. Reproductive: Unremarkable as visualized. Bones/joints: Degenerative changes are present within the spine. Linear bony sclerosis right femoral neck. Correlate. Consider dedicated CT if indicated. Previously noted. Compression fracture involving the superior endplate of L2. Previously noted. Sclerosis of the inferior margin of L3. Soft tissues: See Tubes, Catheters And Devices Finding. Other findings: No obstruction. Calcification posterior calyx superiorly on the right. 14 mm. IMPRESSION: 1. No obstruction. 2. No free fluid within the pelvis or within the dependent portions of the peritoneum. 3. Percutaneously placed transhepatic catheter. Pigtail within the duodenum. No intrahepatic biliary dilatation. 4. Prior gastric bypass. 5. Prior resection of the small bowel with the anastomosis in the right lower abdomen. Mild thickening. No evidence of obstruction however. See image #109 series 2. Slightly more pronounced than the prior CT although this may be related to the degree of distention. Correlate. Consider followup 6. Central venous catheter via the left femoral approach. Inflammation in the soft tissues about the access site. 7. Linear bony sclerosis right femoral neck. Correlate. Consider dedicated CT if indicated. Previously noted. Dictated and Authenticated by: Janes Plascencia MD. Ordering:MILLER Deluca MD
[2019-05-24] MEDS: Sertraline 50 MG TAB 100 MG PO (10:38)
[2019-05-24 11:29] LABS: Procalcitonin 0.4 ng/mL
[2019-05-24] MEDS: VANCOMYCIN 1,000 MG in Normal Saline 250 ML 250 MG IV (12:15)
[2019-05-24] MEDS: Heparin 5,000 UNITS/ML VIAL 5000 UNITS SC ×2 (12:18→21:07)
[2019-05-24] MEDS: Acetaminophen 325 MG TAB PO ×2 (12:46→21:10)
[2019-05-24 12:54] LABS: Lactate-non-spesis 1.6 mmol/l (0.6-1.4)
--- NOTE | 2019-05-24 14:16 | NUR.NOTE ---
Nursing Note: PT care transferred to [facility] RN at 1045.
--- NOTE | 2019-05-24 16:38 | PDOC.ERCMPRO ---
Care Management Progress Note Jude Munoz from [facility] called to request updates on discharge planning. She reported Prema's community team and family have been considering SNF placement for sometime and Jude wanted to ensure this would be discussed during her admission. CM agreed to update team on request and reviewed SNF requirements as disposition. Jude reported Prema has High/Highest Needs [facility].
[2019-05-24] MEDS: Normal Saline 1,000 ML 150 ML IV (18:35)
--- NOTE | 2019-05-24 19:20 | W.PM.HP.N ---
Date of service: 05/24/19 Time of Service: 19:00 Assessment and Plan (1) Sepsis: Current visit: No Status: Acute Due to HCAP, present on admission. Will continue broad spectrum antibiotics and IVF. Await culture data. (2) HCAP (healthcare-associated pneumonia): Current visit: Yes Status: Acute As above (3) Hypotension: Current visit: No Status: Acute In setting of sepsis, but also clinical dehydration. Currently, she is at her baseline - holding parameters were placed on the beta trae. Continue IVF. (4) STACEY (obstructive sleep apnea): Current visit: No Status: Chronic Provide CPAP. (5) Right heart failure with reduced right ventricular function: Current visit: No Status: Chronic Provide CPAP and carefully monitor volume status. (6) Atrial fibrillation: Current visit: No Status: Chronic Currently not in Afib. Will obtain CXR. Not on anticoagulation - will not start now. Continue beta blockers. (7) Diastolic heart failure: Current visit: No Status: Chronic Monitor volume status while on IVF (8) Depression: Current visit: No Status: Chronic Contiue home zoloft (9) Dehydration: Current visit: Yes Status: Acute IVF (10) Acute kidney injury superimposed on chronic kidney disease: Current visit: Yes Status: Acute Did have mild urinary retention on insertion of arndt catheter. She is also dehydrated and septic. Will continue IVF and monitor I/O's, daily weights, Cr. On discharge, per my conversation with Dr Gutiérrez, the patient will keep her arndt catheter. (11) DVT prophylaxis: Current visit: No Status: Acute heparin SC (12) Discharge planning issues: Current visit: No Status: Acute DNI Palliative care consulted as patient's goals of care have changed multiple times today and she generally seems to have difficulty making this decision. History of Present Illness Chief Complaint: I have been feeling sick for 1 week Narrative: Ms Watson is a 63 year old obese female with PMHx of CAD, chronic hypoxic respiratory failure due to COPD and OHS, on home oxygen (3L), Atrial fibrillation (not on coumadin), Chronic diastolic and R-sided CHF, obstructive sleep apnea, breast cancer, h/o ascending cholangitis with biliary drain in place, last changed at [facility] on 04/28/19, who presented to [facility] ED today with nausea, vomiting, epigastric abdominal pain. She was hypotensive and obtaining history was difficult. She was treated with aggressive IVF. When her imaging revealed a right basilar pneumonia, she was initiated on empiric broad spectrum antibiotics antibiotics. Her blood pressures improved; she did not require vasopressors. The patient's goals of care while in the ED have changed from comfort measures only to ok with IVF and inpatient admission, but not a transfer to [facility]. Therefore, we were asked to admit the patient for further care. When I spoke with Prema, she endorsed that she has felt sick for 1 week. Specifically, she endorsed poor appetite and poor PO intake, feeling weak, dizzy, hot and cold, nauseated. She had epigastric pain. She noticed that her urinary output has decreased - she was urinating once a day. She specifically denied vomiting recently, but admits that it's hard to remember. Denies feeling constipated, but thinks her last BM may have been on Friday. Prior to this she had diarrhea. While talking to me, she expressed that she is not sure whether or not she would accept chest compressions/defibrillation, but she was sure she did not want to be intubated. She is interested in going to SNF on discharge. Review of Systems Review of Systems 12 systems reviewed. Pertinent positives and negatives are as per HPI [facility] Medical History ADD (attention deficit disorder) Angina at rest Asthma Atrial fibrillation (Chronic) Atrial fibrillation Bilateral cataracts (Chronic) Breast cancer Chest pain, atypical Chronic back pain (Chronic) Chronic pain Chronic rhinitis Cirrhosis of liver Compression fracture of spine Decreased visual acuity Depression (Chronic) Depression Diastolic heart failure (Chronic) Diastolic heart failure DJD (degenerative joint disease) (Chronic) Gastric bypass status for obesity GI (gastrointestinal bleed) History of DVD (Chronic) History of paroxysmal supraventricular tachycardia History of PSVT (paroxysmal supraventricular tachycardia) (Chronic) Hx of deep venous thrombosis Hyperparathyroidism , secondary, non-renal Hypertension IBS (irritable bowel syndrome) Insomnia Morbid obesity Morbid obesity with BMI of 45.0-49.9, adult (Chronic) STACEY (obstructive sleep apnea) (Chronic) STACEY (obstructive sleep apnea) Osteoarthritis Osteopenia Oxygen dependent Paroxysmal atrial fibrillation (Chronic) PUD (peptic ulcer disease) Pulmonary HTN Right heart failure with reduced right ventricular function (Chronic) Superficial thrombophlebitis Tricuspid regurgitation Surgical History Breast, Mastectomy EGD - MAC Gastric Bypass History of biliary T-tube placement (Resolved 09/01/18) Family History Mother COPD (chronic obstructive pulmonary disease) Father Glioblastoma Son No problems noted. Son Bipolar 1 disorder ADHD Diabetes Social History Smoking/Tobacco Use Status: Former Tobacco Use Alcohol Intake: never Drug use: Never Substance use type: does not use Caregiver/Support person: No Household members: none Housing: apartment Number of Children: 2 number of grandchildren: 1 Do you feel safe at home: Yes Do you feel safe in your relationship?: Yes Meds Home Medications Medication Instructions Recorded Confirmed Type lorazepam 0.5 mg PO QID PRN 03/09/13 05/24/19 History pantoprazole 40 mg PO DAILY 03/09/13 05/24/19 History clonazepam 2 tab PO HS 10/03/14 05/24/19 History sertraline [Zoloft] 100 mg PO DAILY tab-cap 10/03/14 05/24/19 History Advair HFA 2 puff INHALATION BID 10/26/14 05/24/19 History calcium carbonate-vitamin D3 2 tab PO BID 10/26/14 05/24/19 History cyclobenzaprine 10 mg PO BID 10/26/14 05/18/19 History anastrozole [Arimidex] 1 mg PO DAILY 12/18/16 05/24/19 History glucosamine sulfate 2KCl 500 mg PO BID 12/18/16 05/24/19 History ascorbic acid (vitamin C) [Vitamin 500 mg PO BID 05/30/17 05/24/19 History C] cyanocobalamin (vitamin B-12) 100 mcg PO DAILY 05/30/17 05/18/19 History [Vitamin B-12] ergocalciferol (vitamin D2) 50,000 units PO DIRECTED 05/30/17 05/18/19 History [Vitamin D2] ipratropium-albuterol 3 ml INHALATION QID 02/12/18 05/24/19 History metoprolol tartrate 25 mg PO TID 09/18/18 05/24/19 History Atrovent HFA 1 puff INHALATION TID 10/20/18 05/24/19 History albuterol sulfate 2 inh INHALATION QID 10/20/18 05/24/19 History benzonatate 100 mg PO TID PRN 10/20/18 05/24/19 History dicyclomine [Bentyl] 10 mg BID 10/20/18 05/04/19 History ferrous sulfate 325 mg PO DAILY 10/20/18 05/24/19 History loperamide 2 mg PO TID 10/20/18 05/24/19 History methylphenidate HCl [Ritalin] 10 mg PO BID 10/20/18 05/24/19 History oxycodone-acetaminophen [Percocet] 1 tab PO Q6H PRN PRN 10/20/18 05/24/19 History triamcinolone acetonide [Kenalog] 0.147 mg TOPICAL BID 10/20/18 05/24/19 History nitrofurantoin monohyd/m-cryst 100 mg PO BID #10 cap 05/18/19 05/24/19 Rx [Macrobid] Allergies Allergy/AdvReac Type Severity Reaction Status Date / Time haloperidol Allergy Severe seizure Unverified 05/24/19 03:30 cephalexin monohydrate Allergy Mild Unverified 05/24/19 03:30 [From Keflex] ciprofloxacin [From Cipro] Allergy Mild Hives Unverified 05/24/19 03:30 dextroamphetamine Allergy Unknown Unverified 05/24/19 03:30 doxylamine Allergy Unknown Unverified 05/24/19 03:30 eszopiclone [From Lunesta] Allergy Unknown Unverified 05/24/19 03:30 Penicillins Allergy Unknown Unverified 05/24/19 03:30 pseudoephedrine Allergy Unknown Unverified 05/24/19 03:30 Sulfa (Sulfonamide Allergy Unknown Unverified 05/24/19 03:30 Antibiotics) trazodone Allergy Unknown Unverified 05/24/19 03:30 venlafaxine HCl AdvReac Severe crazy Unverified 05/24/19 03:30 [From Effexor] dextromethorphan HBr AdvReac Intermediate muscle Unverified 05/24/19 03:30 [From NyQuil] twitch doxylamine succinate AdvReac Intermediate muscle Unverified 05/24/19 03:30 [From NyQuil] twitch omeprazole AdvReac Intermediate Diarrhea Unverified 05/24/19 03:30 pseudoephedrine HCl AdvReac Intermediate muscle Unverified 05/24/19 03:30 [From NyQuil] twitch chlorpromazine HCl AdvReac passes out Unverified 05/24/19 03:30 [From Thorazine] Exam Narrative Exam Narrative: General: Very pleasant obese female, speaks softly and tangential in her history, very poor history provider, A&OX3, actually looks better than I have ever seen her, A&OX3, laying comfortably flat in bed Neurological: A&OX3, no focal deficits Psychiatric: appears sad/anxious Skin: intact HEENT: Atraumatic, normocephalic, EOMI, dry MM, no submandibular or cervical lymphadenopathy, no goiter or JVD Cardiovascular: RRR, no m/r/g Lungs: Diminished breath sounds B anteriorly (the patient tells me not to move the table with food from her, therefore not permitting posterior auscultation) Gastrointestinal: abdomen is soft, it is minimally tender, nondistended Genitourinary: has a arndt Extremities: BLE lymphedema; wearing SCD's Results Imaging Additional studies: CT abdomen/pelvis: 1. No evidence of bowel obstruction or free fluid in the abdomen or pelvis. 2. Stable location of the percutaneous biliary drain. 3. Status post gastric bypass. 4. Status post small bowel resection with anastomosis in the right lower quadrant. No evidence of obstruction. 5. Interval placement of a central venous catheter via the left femoral approach. Infiltration of the adjacent soft tissues is noted. These may be post procedural changes. No focal fluid collection is seen to suggest an abscess. 6. Linear sclerosis seen in the right femoral neck. CT chest: 1. Stable left pleural effusion with pleural thickening. 2. Stable opacity in the left lung apex, unchanged since 04/26/18. This may represent an area of scarring. 3. Right basilar infiltrate which may represent atelectasis or pneumonia. 4. Stable fluid collection in the soft tissues overlying the left chest wall. Labs : 05/24/19 06:15 05/24/19 06:15 Laboratory Results - last 24 hr 05/24/19 05/24/19 05/24/19 03:25 04:55 04:55 WBC RBC Hgb Hct MCV MCH MCHC RDW Plt Count MPV Immature Gran % Neutrophils % Band Neutrophils % Lymphocytes % Atypical Lymphs % Monocytes % Eosinophils % Basophils % Metamyelocytes % Myelocytes % Promyelocytes % Absolute Neutrophils Absolute Lymphocytes Absolute Monocytes Absolute Eosinophils Absolute Basophils Nucleated RBCs Differential Comment Other Cell Type RBC Morphology Polychromasia Hypochromasia Poikilocytosis Basophilic Stippling Anisocytosis Microcytosis Macrocytosis Spherocytes Target Cells Tear Drop Cells Ovalocytes Stomatocytes [place] Bodies [place] Cells Acanthocytes (Spur) Schistocytes PT INR APTT Sodium Cancelled Potassium Cancelled Chloride Cancelled Carbon Dioxide Cancelled Anion Gap Cancelled BUN Cancelled Creatinine Cancelled Estimated GFR/1.73 m2 Cancelled Glucose Cancelled Lactate 3.0 H Calcium Cancelled Magnesium Cancelled Total Bilirubin Cancelled AST Cancelled ALT Cancelled Alkaline Phosphatase Cancelled Troponin I Cancelled Total Protein Cancelled Albumin Cancelled Lipase Cancelled Procalcitonin Urine Color Yellow Urine Clarity Clear Urine pH 5.0 Ur Specific [place] 1.025 Urine Protein 100 H Urine Ketones 15 H Urine Blood Small H Urine Nitrite Negative Urine Bilirubin Small H Urine Urobilinogen 0.2 Ur Leukocyte Esterase Small H Urine RBC 0-2 Urine WBC 5-10 Ur Epithelial Cells Rare Urine Crystals Negative Urine Bacteria Few Urine Casts Negative Urine Mucus Negative Urine Other Moderate yeast Ur Culture Indicated? Yes Urine Glucose Negative 05/24/19 05/24/19 05/24/19 04:55 06:15 06:15 WBC Cancelled RBC Cancelled Hgb Cancelled Hct Cancelled MCV Cancelled MCH Cancelled MCHC Cancelled RDW Cancelled Plt Count Cancelled MPV Cancelled Immature Gran % Cancelled Neutrophils % Cancelled Band Neutrophils % Cancelled Lymphocytes % Cancelled Atypical Lymphs % Cancelled Monocytes % Cancelled Eosinophils % Cancelled Basophils % Cancelled Metamyelocytes % Cancelled Myelocytes % Cancelled Promyelocytes % Cancelled Absolute Neutrophils Cancelled Absolute Lymphocytes Cancelled Absolute Monocytes Cancelled Absolute Eosinophils Cancelled Absolute Basophils Cancelled Nucleated RBCs Cancelled Differential Comment Cancelled Other Cell Type Cancelled RBC Morphology Cancelled Polychromasia Cancelled Hypochromasia Cancelled Poikilocytosis Cancelled Basophilic Stippling Cancelled Anisocytosis Cancelled Microcytosis Cancelled Macrocytosis Cancelled Spherocytes Cancelled Target Cells Cancelled Tear Drop Cells Cancelled Ovalocytes Cancelled Stomatocytes Cancelled [place] Bodies Cancelled Jassi Cells Cancelled Acanthocytes (Spur) Cancelled Schistocytes Cancelled PT INR APTT Sodium 139 Potassium 3.7 Chloride 100 Carbon Dioxide 26.7 Anion Gap 12.3 H BUN 36 H Creatinine 2.62 H Estimated GFR/1.73 m2 18.37 Glucose 136 H Lactate 2.1 H Calcium 8.5 Magnesium 2.2 Total Bilirubin 0.7 AST 10 L ALT 7 L Alkaline Phosphatase 163 H Troponin I < 0.05 Total Protein 7.4 Albumin 3.0 L Lipase 27 L Procalcitonin Urine Color Urine Clarity Urine pH Ur Specific [place] Urine Protein Urine Ketones Urine Blood Urine Nitrite Urine Bilirubin Urine Urobilinogen Ur Leukocyte Esterase Urine RBC Urine WBC Ur Epithelial Cells Urine Crystals Urine Bacteria Urine Casts Urine Mucus Urine Other Ur Culture Indicated? Urine Glucose 05/24/19 05/24/19 05/24/19 06:15 06:15 06:15 WBC 12.95 H RBC 5.21 H Hgb 16.8 H Hct 53.2 H MCV 102.1 H MCH 32.2 MCHC 31.6 L RDW 13.6 Plt Count 197 MPV 11.3 H Immature Gran % 0.2 Neutrophils % 81.5 Band Neutrophils % Lymphocytes % 11.0 Atypical Lymphs % Monocytes % 6.7 Eosinophils % 0.3 Basophils % 0.3 Metamyelocytes % Myelocytes % Promyelocytes % Absolute Neutrophils 10.55 H Absolute Lymphocytes 1.42 Absolute Monocytes 0.87 H Absolute Eosinophils 0.04 Absolute Basophils 0.04 Nucleated RBCs Differential Comment Other Cell Type RBC Morphology Polychromasia Hypochromasia Poikilocytosis Basophilic Stippling Anisocytosis Microcytosis Macrocytosis Spherocytes Target Cells Tear Drop Cells Ovalocytes Stomatocytes [place] Bodies Jassi Cells Acanthocytes (Spur) Schistocytes PT 11.3 H INR 1.1 APTT 24.9 Sodium Potassium Chloride Carbon Dioxide Anion Gap BUN Creatinine Estimated GFR/1.73 m2 Glucose Lactate Calcium Magnesium Total Bilirubin AST ALT Alkaline Phosphatase Troponin I Total Protein Albumin Lipase Procalcitonin 0.4 Urine Color Urine Clarity Urine pH Ur Specific [place] Urine Protein Urine Ketones Urine Blood Urine Nitrite Urine Bilirubin Urine Urobilinogen Ur Leukocyte Esterase Urine RBC Urine WBC Ur Epithelial Cells Urine Crystals Urine Bacteria Urine Casts Urine Mucus Urine Other Ur Culture Indicated? Urine Glucose 05/24/19 12:40 WBC RBC Hgb Hct MCV MCH MCHC RDW Plt Count MPV Immature Gran % Neutrophils % Band Neutrophils % Lymphocytes % Atypical Lymphs % Monocytes % Eosinophils % Basophils % Metamyelocytes % Myelocytes % Promyelocytes % Absolute Neutrophils Absolute Lymphocytes Absolute Monocytes Absolute Eosinophils Absolute Basophils Nucleated RBCs Differential Comment Other Cell Type RBC Morphology Polychromasia Hypochromasia Poikilocytosis Basophilic Stippling Anisocytosis Microcytosis Macrocytosis Spherocytes Target Cells Tear Drop Cells Ovalocytes Stomatocytes [place] Bodies [place] Cells Acanthocytes (Spur) Schistocytes PT INR APTT Sodium Potassium Chloride Carbon Dioxide Anion Gap BUN Creatinine Estimated GFR/1.73 m2 Glucose Lactate 1.6 H Calcium Magnesium Total Bilirubin AST ALT Alkaline Phosphatase Troponin I Total Protein Albumin Lipase Procalcitonin Urine Color Urine Clarity Urine pH Ur Specific [place] Urine Protein Urine Ketones Urine Blood Urine Nitrite Urine Bilirubin Urine Urobilinogen Ur Leukocyte Esterase Urine RBC Urine WBC Ur Epithelial Cells Urine Crystals Urine Bacteria Urine Casts Urine Mucus Urine Other Ur Culture Indicated? Urine Glucose Last Vital Signs Temp 36.7 C 05/24/19 17:27 Pulse 118 H 05/24/19 17:27 Resp 14 05/24/19 10:27 BP 99/70 L 05/24/19 17:00 Pulse Ox 98 05/24/19 19:05
[2019-05-24 19:27] LABS: FREE T4 1.38 ng/dL (0.76-1.46); TSH 1.62 uIU/mL (0.36-3.74)
[2019-05-24] MEDS: Pantoprazole 40 MG VIAL IVP (21:07)
[2019-05-24] MEDS: Albuterol/Ipratropium 3 ML UPD VIAL IH (21:08)
[2019-05-24] MEDS: Normal Saline Flush 10 ML SYR IVP (21:08)
[2019-05-24] MEDS: Milk of Magnesia 30 ML CUP PO (21:08)
[2019-05-24] MEDS: oxyCODONE 5 mg/Acetaminophen 325 mg TAB 1 TAB PO (21:09)
[2019-05-24] MEDS: Docusate Sodium 100 MG CAP PO (21:09)
[2019-05-24] MEDS: LORazepam 0.5 MG TAB PO (21:10)
[2019-05-24] MEDS: Ascorbic Acid 500 MG TAB PO (21:10)
[2019-05-24] MEDS: Metoprolol 25 MG TAB PO (21:10)
[2019-05-24] MEDS: Calcium 600mg/Vit D 200U TAB 2 TAB PO (21:10)
[2019-05-24] MEDS: clonazePAM 1 MG TAB 2 MG PO (21:15)
[2019-05-24] MEDS: Triamcinolone 0.1% CR 15 GM TUBE TP (21:49)
[2019-05-24] MEDS: Budesonide/Formoterol 160/4.5 6 GM 60 PUFF INH IH (21:49)
[2019-05-24] MEDS: Glucosamine 500 MG CAP PO (21:49)
[2019-05-25] VITALS (79 sets, daily range): BP systolic 68–121; BP diastolic 31–88; PULSE 87–203; RESP 1–30; TEMP 36.6–37.2; O2SAT 85–100
[2019-05-25] MEDS: AZTREONAM 2,000 MG in Normal Saline 100 ML 200 MG IVPB ×3 (01:24→18:34)
[2019-05-25] MEDS: Normal Saline 1,000 ML 150 ML IV ×3 (02:11→18:37)
[2019-05-25] MEDS: Heparin 5,000 UNITS/ML VIAL 5000 UNITS SC ×3 (04:48→19:58)
[2019-05-25] MEDS: metroNIDAZOLE 500 MG/100 ML BAG 100 MG IVPB ×2 (05:33→13:42)
[2019-05-25] MEDS: oxyCODONE 5 mg/Acetaminophen 325 mg TAB 1 TAB PO ×2 (05:45→21:53)
[2019-05-25] MEDS: Normal Saline Flush 10 ML SYR IVP ×3 (06:19→21:23)
[2019-05-25 07:30] LABS: Abs Immature Grans 0.01 k/cumm (0.0-0.09); Absolute Basophil Count 0.05 k/cumm (0.0-0.2); Absolute Eosinophil Count 0.14 k/cumm (0.0-0.7); Absolute Lymphocyte Count 0.74 k/cumm (1.2-3.4); Absolute Monocyte Count 0.67 k/cumm (0.11-0.7); Basophils % 0.6; Eosinophils % 1.8; HCT 42.7 % (36.0-46.0); HGB 13.9 g/dL (12.0-15.5); Immature Grans % 0.1; Lymphocytes % 9.4; Mean Corp. HGB Concentration 32.6 g/dL (32.0-36.0); Mean Corpuscular Hemoglobin 33.3 pg (27.0-33.0); Mean Corpuscular Volume 102.2 fL (80-95); Mean Platelet Volume 11.6 fL (8.0-11.0); Monocytes % 8.5; Neutrophils % 79.6; Platelet Count 144 x1000/uL (130-400); RBC 4.18 m/cumm (4.00-5.20); RBC Distribution Width 13.7 % (11.7-14.6); White Blood Cell Count 7.85 k/cumm (4.4-10.8)
[2019-05-25 07:32] LABS: Absolute Neutrophil Count 6.25 k/cumm (1.2-6.7)
[2019-05-25 07:45] LABS: Albumin 2.3 g/dL (3.4-5.0); Alkaline Phosphatase 124 U/L (46-116); BUN 22 mg/dL (7-18); Bilirubin, Total 0.5 mg/dL (0.2-1.0); CREATININE 0.86 mg/dL (0.55-1.02); Calcium 8.2 mg/dL (8.5-10.1); Chloride 106 mmol/L (98-107); Glucose 104 mg/dL (70-100); Potassium 3.6 mmol/L (3.5-5.1); Sodium 141 mmol/L (136-145); Total Protein 6.2 g/dL (6.4-8.2)
[2019-05-25 08:02] LABS: ALT 12 U/L (12-78); AST 11 U/L (15-37)
--- NOTE | 2019-05-25 08:34 | W.PM.PROGNOT ---
Date of Service Date of service: 05/25/19 Time of Service: 08:34 Assessment and Plan (1) Sepsis: Current visit: No Status: Acute GPC's in 1 bottle from blood cultures done yesterday. Likely etiology - HCAP, present on admission. Continue IV vancomycin/aztreonam. Ok to d/c flagyl. Continue aggressive IVF. Repeat blood cultures. (2) HCAP (healthcare-associated pneumonia): Current visit: Yes Status: Acute As above (3) Hypotension: Current visit: No Status: Acute In setting of sepsis, but also clinical dehydration and now rapid Afib. Bolusing more IVF. The patient previously declined being in ICU, but she is physically in ICU in medsurg status and has a central line. If we have to give pressors, we will. Monitor on tele. (4) STACEY (obstructive sleep apnea): Current visit: No Status: Chronic Provide CPAP. (5) Right heart failure with reduced right ventricular function: Current visit: No Status: Chronic Provide CPAP and carefully monitor volume status. (6) Atrial fibrillation: Current visit: No Status: Chronic In Rapid Afib. Bolusing IVF and will treat with beta blockers as blood pressures permit. Treat infection. (7) Diastolic heart failure: Current visit: No Status: Chronic Monitor volume status while on IVF (8) Depression: Current visit: No Status: Chronic Contiue home zoloft (9) Dehydration: Current visit: Yes Status: Acute IVF (10) Acute kidney injury superimposed on chronic kidney disease: Current visit: Yes Status: Acute Due to urinary retention, dehydration and sepsis. Will continue IVF and monitor I/O's, daily weights, Cr. On discharge, per my conversation with Dr Gutiérrez, the patient will keep her arndt catheter. (11) DVT prophylaxis: Current visit: No Status: Acute heparin SC (12) Discharge planning issues: Current visit: No Status: Acute DNI Palliative care consulted Subjective Interval history since last seen: Prema reports feeling tired, an episode of chest pain last night. She feels a little dizzy, denies shortness of breath, cough, nausea. States she can eat a little bit more now. Got ativan last night - anxious/agitated. CPAP will hopefully be brought in today. She spent the night on room air, lowest O2 sat once was 88%. put about 600 cc in her biliary drain since evening shift. 350 in arndt in 8 hours. Exam Narrative Exam Narrative: General: Anxious and tired appearing obese female, A&Ox3, looks more tired than yesterday HEENT: EOMI, dry MM Cardiovascular: tachycardic (130's - 140's), seemingly regular Lungs: Diminished breath sounds B anteriorly Gastrointestinal: abdomen is soft, nontender, nondistended Genitourinary: has a arndt Extremities: BLE lymphedema; wearing SCD's Objective Objective Clinical Data: Abnormal lab results 05/24/19 05/25/19 05/25/19 Range/Units 12:40 06:25 06:25 MCV 102.2 H (80-95) fL MCH 33.3 H (27.0-33.0) pg MPV 11.6 H (8.0-11.0) fL Absolute Lymphocytes 0.74 L (1.2-3.4) k/cumm BUN 22 H D (7-18) mg/dL Glucose 104 H (70-100) mg/dL Lactate 1.6 H (0.6-1.4) mmol/l Calcium 8.2 L (8.5-10.1) mg/dL AST 11 L (15-37) U/L Alkaline Phosphatase 124 H (46-116) U/L C-Reactive Protein 1.70 H (0.0-0.3) mg/dL Total Protein 6.2 L (6.4-8.2) g/dL Albumin 2.3 L (3.4-5.0) g/dL Vital Signs Temperature 36.6 C 05/25/19 00:05 Temperature Source Temporal Artery Scan 05/25/19 00:05 Pulse 120 H 05/25/19 04:00 Pulse Rhythm Regular 05/25/19 00:05 Respiratory Rate 7 L 05/25/19 00:05 Respiratory Effort 05/25/19 00:05 Respiratory Depth Shallow 05/25/19 00:05 Respiratory Pattern Tachypnea 05/25/19 00:05 Blood Pressure 94/62 L 05/25/19 04:00 Blood Pressure Mean 70 05/25/19 04:00 Blood Pressure Position Supine 05/24/19 12:05 Pulse Oximetry 96 05/25/19 04:00 Oxygen Delivery Method Room Air 05/25/19 00:05 Oxygen Flow Rate 0 05/25/19 00:05 Pain Level 8 05/25/19 05:45 Comment 05/25/19 00:05 Intake & Output 05/24/19 05/24/19 05/25/19 11:59 23:59 11:59 Intake Total 1933.333 / 5640.833 3707.5 / 5640.833 1002.5 / 1002.5 Output Total 400 / 2100 1700 / 2100 1150 / 1150 Balance 1533.333 / 3540.833 2007.5 / 3540.833 -147.5 / -147.5 Weight 104.5 kg 105 kg 106 kg Intake: IV 1933.333 / 5200.833 3267.5 / 5200.833 512.5 / 512.5 Oral 440 / 440 490 / 490 Injectate 0 / 0 R abdomen biliary drain 0 / 0 Output: Drainage 800 / 800 250 / 250 R abdomen biliary drain 800 / 800 250 / 250 Urine 900 / 900 900 / 900 Other 400 / 400 Other: Urine Color Light Alejandra Dark Alejandra Urine Appearance Cloudy Cloudy Sediment Sediment Urine Odor None Comment uses bed elena for voiding/BM discussions were being had about arndt being inserted Voiding Methods Indwelling Catheter Laboratory Results WBC 7.85 k/cumm (4.4-10.8) D 05/25/19 06:25 RBC 4.18 m/cumm (4.00-5.20) 05/25/19 06:25 Hgb 13.9 g/dL (12.0-15.5) D 05/25/19 06:25 Hct 42.7 % (36.0-46.0) 05/25/19 06:25 MCV 102.2 fL (80-95) H 05/25/19 06:25 MCH 33.3 pg (27.0-33.0) H 05/25/19 06:25 MCHC 32.6 g/dL (32.0-36.0) 05/25/19 06:25 RDW 13.7 % (11.7-14.6) 05/25/19 06:25 Plt Count 144 x1000/uL (130-400) 05/25/19 06:25 MPV 11.6 fL (8.0-11.0) H 05/25/19 06:25 Immature Gran % 0.1 05/25/19 06:25 79.6 05/25/19 06:25 Cancelled 05/24/19 04:55 9.4 05/25/19 06:25 Atypical Lymphs % Cancelled 05/24/19 04:55 8.5 05/25/19 06:25 1.8 05/25/19 06:25 0.6 05/25/19 06:25 Cancelled 05/24/19 04:55 Cancelled 05/24/19 04:55 Cancelled 05/24/19 04:55 Absolute Neutrophils 6.25 k/cumm (1.2-6.7) 05/25/19 06:25 Absolute Lymphocytes 0.74 k/cumm (1.2-3.4) L 05/25/19 06:25 Absolute Monocytes 0.67 k/cumm (0.11-0.7) 05/25/19 06:25 Absolute Eosinophils 0.14 k/cumm (0.0-0.7) 05/25/19 06:25 Absolute Basophils 0.05 k/cumm (0.0-0.2) 05/25/19 06:25 Nucleated RBCs Cancelled 05/24/19 04:55 Cancelled 05/24/19 04:55 Cancelled 05/24/19 04:55 RBC Morphology Cancelled 05/24/19 04:55 Cancelled 05/24/19 04:55 Cancelled 05/24/19 04:55 Cancelled 05/24/19 04:55 Cancelled 05/24/19 04:55 Cancelled 05/24/19 04:55 Cancelled 05/24/19 04:55 Cancelled 05/24/19 04:55 Cancelled 05/24/19 04:55 Cancelled 05/24/19 04:55 Cancelled 05/24/19 04:55 Cancelled 05/24/19 04:55 Cancelled 05/24/19 04:55 Cancelled 05/24/19 04:55 Cancelled 05/24/19 04:55 Acanthocytes (Spur) Cancelled 05/24/19 04:55 Cancelled 05/24/19 04:55 PT 11.3 sec (9.3-11.0) H 05/24/19 06:15 INR 1.1 (0.9-1.1) 05/24/19 06:15 APTT 24.9 sec (21.0-31.4) 05/24/19 06:15 Sodium 141 mmol/L (136-145) 05/25/19 06:25 Potassium 3.6 mmol/L (3.5-5.1) 05/25/19 06:25 Chloride 106 mmol/L (98-107) 05/25/19 06:25 Carbon Dioxide 27.0 mmol/L (21.0-32.0) 05/25/19 06:25 8.0 mmol/L (3-11) 05/25/19 06:25 BUN 22 mg/dL (7-18) H D 05/25/19 06:25 0.86 mg/dL (0.55-1.02) D 05/25/19 06:25 >= 60.00 (mL/min/1.73m2) 05/25/19 06:25 Glucose 104 mg/dL (70-100) H 05/25/19 06:25 1.6 mmol/l (0.6-1.4) H 05/24/19 12:40 Calcium 8.2 mg/dL (8.5-10.1) L 05/25/19 06:25 Magnesium 2.0 mg/dL (1.8-2.4) 05/25/19 06:25 0.5 mg/dL (0.2-1.0) 05/25/19 06:25 0.20 mg/dL (0.00-0.20) 05/25/19 06:25 AST 11 U/L (15-37) L 05/25/19 06:25 ALT 12 U/L (12-78) 05/25/19 06:25 124 U/L (46-116) H 05/25/19 06:25 < 0.05 ng/mL (0.00-0.06) 05/24/19 06:15 1.70 mg/dL (0.0-0.3) H 05/25/19 06:25 6.2 g/dL (6.4-8.2) L 05/25/19 06:25 2.3 g/dL (3.4-5.0) L 05/25/19 06:25 27 U/L (73-393) L 05/24/19 06:15 0.4 ng/mL 05/24/19 06:15 TSH 1.62 uIU/mL (0.36-3.74) 05/24/19 12:40 Free T4 1.38 ng/dL (0.76-1.46) 05/24/19 12:40 Yellow (Yellow) 05/24/19 03:25 Clear (Clear) 05/24/19 03:25 5.0 (5-8) 05/24/19 03:25 Ur Specific [place] 1.025 (1.005-1.025) 05/24/19 03:25 100 mg/dL (Negative) H 05/24/19 03:25 15 mg/dL (Negative) H 05/24/19 03:25 Small (Negative) H 05/24/19 03:25 Negative (Negative) 05/24/19 03:25 Small (Negative) H 05/24/19 03:25 0.2 EU/dL (Up TO 0.2) 05/24/19 03:25 Ur Leukocyte Esterase Small (Negative) H 05/24/19 03:25 0-2 (0-2) 05/24/19 03:25 5-10 HPF (0-5) 05/24/19 03:25 Ur Epithelial Cells Rare HPF (Negative) 05/24/19 03:25 Negative HPF (Negative) 05/24/19 03:25 Few HPF (Negative) 05/24/19 03:25 Negative LPF (Negative) 05/24/19 03:25 Negative (Negative) 05/24/19 03:25 Moderate yeast (Negative) 05/24/19 03:25 Ur Culture Indicated? Yes 05/24/19 03:25 Negative mg/dL (Negative) 05/24/19 03:25
--- NOTE | 2019-05-25 08:40 | INITIAL_ITS ---
- If Service Date Differs Date of service: 05/25/19 Time of Service: 08:40 Care Management Initial Assess REASON FOR HOSPITALIZATION:: Pneumonia PAST MEDICAL HISTORY/PAST SURGICAL HISTORY:: Morbid obesity, Depression, H/O DVD, DJD, H/O PSVT, Chronic back pain, Bilateral cataracts, Paroxysmal atrial fibrillation, Diastolic heart failure, (R) heart failure, STACEY PREVIOUS FUNCTIONAL STATUS/SOCIAL/FAMILY SUPPORTS:: Prema resides alone in [facility]. She has two sons whom do not reside locally. Prema states that she has a friend locally whom is supportive Ana. Prema also states that she has someone in the community whom she pays privately [employer] and that she is very helpful. Prema does not drive, she depends on [facility] for transportation at baseline. Prema does have choices for care highest needs. CURRENT FUNCTIONAL STATUS:: Prema is alert she states she is not feeling well and has several recent visits to the ED and with her provider. Prema receives home health nursing and MANAGER [employer] APPLICATION's in the community she states she does not have enough help at home. She is having to move from her apartment by June the plan is for her to go to [facility] once a bed is open. She has a community health nurse supervisor Kristie Fatima at [facility] who is assisting with this placement. Prema states she does not want to be transfered to any other facility she states she would rather be admitted to [facility] and receive treatment. 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 Prema states she wants to be able to feel better, go home to her cat and be home with supports and caregivers. She is discouraged that she can not be on hospice but states she does not have enough supports to be on hospice. ADVANCE DIRECTIVES:: Vlad Watson is agent, Ana Lane is alternate Has patient been provided with information about the portal?: Yes Did the patient sign up for the portal?: No CODE STATUS:: DNR/DNI INSURANCE COVERAGE / FINANCIAL ISSUES:: Medicare, Medicaid CURRENT HOME/COMMUNITY SERVICES/EQUIPMENT:: Currently Prema has home health - RN daily, OT 2x/week and NUTRITION ASSOCIATE's 3x/week. Prema has a FWW, Commode, grab bars, electric w/c, shower bench, hospital bed, Lif[employer], oxygen, CPAP, and nebulizer from [employer]. Prema states that the walker is broken, the commode does not have a bucket, the electric w/c is broken, and the hospital bed is broken. She states that her CM Jane, COA, is aware of the medical equipment needing to be fixed. PRIMARY CARE PHYSICIAN:: POTENTIAL DISCHARGE NEEDS:: SNF vs home PATIENT/FAMILY EDUCATION NEEDS:: Review DC instructions, any limitations, and ongoing DC planning discussion. Discuss 'Ask Me three' ANTICIPATED BARRIERS TO DISCHARGE:: None identified TRANSPORTATION:: Ambulance coordinated by CM at the time of discharge PLAN:: Dr. Dorado, Palliative, is going to meet with Prema today. Prema remains on IV antibioitcs and receiving care in the ICU. Prema will be discharged home vs SNF when medically. Will await palliative care consult for goals of care discussion and planning. CM has contacted palliative care and awaiting appointment.
[2019-05-25] MEDS: Glucosamine 500 MG CAP PO ×2 (09:28→19:57)
[2019-05-25] MEDS: Calcium 600mg/Vit D 200U TAB 2 TAB PO ×2 (09:28→19:57)
[2019-05-25] MEDS: Sertraline 50 MG TAB 100 MG PO (09:28)
[2019-05-25] MEDS: Methylphenidate 10 MG TAB PO (09:28)
[2019-05-25] MEDS: Ferrous Sulfate 325 MG TAB PO (09:29)
[2019-05-25] MEDS: Pantoprazole 40 MG TABCR PO (09:29)
[2019-05-25] MEDS: Anastrozole 1 MG TAB PO (09:29)
[2019-05-25] MEDS: Loperamide 2 MG CAP PO (09:29)
[2019-05-25] MEDS: Triamcinolone 0.1% CR 15 GM TUBE TP ×2 (09:30→20:34)
[2019-05-25] MEDS: Ascorbic Acid 500 MG TAB PO ×2 (09:31→19:57)
--- NOTE | 2019-05-25 09:47 | OT.INIE ---
Occupational Therapy Notes Inpatient Occupational Therapy Evaluation Date: 05/25/19 Referring Doctor:Francheska Charles MD OT Orders: Eval and treat Precautions: Fall, standard PATIENT PROFILE/ADMITTING DIAGNOSIS: Pt is a 63 year old female referred to [facility] to the ICU for penumonia, Sepsis, Hypotension, Abdominal pain. Past Medical History: Medical History ADD (attention deficit disorder) Angina at rest Asthma Atrial fibrillation (Chronic) Atrial fibrillation Bilateral cataracts (Chronic) Breast cancer Chest pain, atypical Chronic back pain (Chronic) Chronic pain Chronic rhinitis Cirrhosis of liver Compression fracture of spine Decreased visual acuity Depression (Chronic) Depression Diastolic heart failure (Chronic) Diastolic heart failure DJD (degenerative joint disease) (Chronic) Gastric bypass status for obesity GI (gastrointestinal bleed) History of DVD (Chronic) History of paroxysmal supraventricular tachycardia History of PSVT (paroxysmal supraventricular tachycardia) (Chronic) Hx of deep venous thrombosis Hyperparathyroidism , secondary, non-renal Hypertension IBS (irritable bowel syndrome) Insomnia Morbid obesity Morbid obesity with BMI of 45.0-49.9, adult (Chronic) STACEY (obstructive sleep apnea) (Chronic) STACEY (obstructive sleep apnea) Osteoarthritis Osteopenia Oxygen dependent Paroxysmal atrial fibrillation (Chronic) PUD (peptic ulcer disease) Pulmonary HTN Right heart failure with reduced right ventricular function (Chronic) Superficial thrombophlebitis Tricuspid regurgitation Surgical History Breast, Mastectomy EGD - MAC Gastric Bypass History of biliary T-tube placement (Resolved 09/01/18) Current Functional Limitations: Decreased (B) UE AROM, decreased functional activity tolerance, decreased strength (B) UE, decreased (I) in ADLs/IADLs. Social History/Home Situation: Pt is a poor historian. It is unclear as to whether pt was at LTC prior or if she was on her own. She speaks very quietly and wants the person she is talking to, to get close to her. She keeps her eyes shut at times when she is talking. She has decreased response and sometimes avoids questions that were asked to her. She did say that someone helped her get washed up but that she does everything that she can. She states that she needs (A) but she cannot brush her own hair and that she has a huge knot in her hair because she cannot reach the back of her head. Equipment owned/DME: CPAP machine, Mobilized wheelchair, hospital bed SUBJECTIVE: Pt was sitting in bed when OT arrived. She was agreeable to OT session but states she is staying in her bed. OBJECTIVE: General Observation: Gao, IV (L) UE, biliary T-tube Mental Status: A&Ox3 Pain: no c/o pain ROM: RUE AROM ~160*, elbow WNL, hand and digits WNL L UE AROM~160*, elbow WNL, hand and digits WNL STRENGTH: RUE 3/5 throughout LUE 3/5 throughout FUNCTIONAL MOBILITY/ADLS: EATING- Pt refused to cut her own food asking nursing to perform this for her. When nursing started to cut her food she then states you never listen, I bet you don't even know how to listen. All due to pt not wanting to cut her own food. Pt was able to (I) bring her fork to her tray and then states she wants her food on her table. OT provides vc for pt to lift her (R) UE over the tray and pt is able to perform this. She was able to pour her container of maple syrup (I). Pt demonstrates (I) hand to mouth translation. BALANCE: Static sitting Good Dynamic Sitting Good Static Standing NT Dynamic Standing NT SPECIAL TESTS: Daily Activity Limitations Standardized Measure [facility] AM -PAC ?6 clicks? Daily Activity Inpatient Short Form: Raw score: 14 Standardized score: 33.39 CMS score: 59.67% INFORMED CONSENT/EDUCATION: Pt instructed in purpose of OT Consult and plan of care. ASSESSMENT: Patient is a 63-year-old female referred to occupational therapy services with diagnosis of penumonia, Sepsis, Hypotension, Abdominal pain. Impairments are contributing to the following functional limitations: Decreased (B) UE AROM, decreased functional activity tolerance, decreased strength (B) UE, decreased (I) in ADLs/IADLs. Pt requires verbal cues to perform ADLs. Pt is not always receptive to education and training provided to her and would benefit from OT consult for education and training in adaptive equipment for dressing routine as well as increased (I) in her ADL routines. OT recommends that pt got to LTC when medically cleared per MD to gain (I) in ADL routine. AMPAC score 14, CMS score 59.67% Patient is assessed as a high 58081 complexity based on the following: History: See Above Examination: See Above Presentation: Evolving Decision Making: AMPAC score 14, CMS score 59.67% GOALS Goals x1 week in hospital setting 1. Dressing (I) with [facility] gown. 2. Bathing sitting on side of the bed pt will be (I) with washing abdomen, and upper legs and (B) UE. 3. (I) with cutting food during eating routines. PLAN OF CARE/TREATMENT PLAN: 1x/day, 5 days/ week x 1week Initiate Occupational Therapy Services for bathing, dressing, grooming, toileting, eating, transfer training. DISCHARGE RECOMMENDATIONS LTC when medically cleared per MD. TREATMENT TIME/MINUTES/CODES 87854, 15 minutes (09:30) Adriana Zaragoza OTR/[facility]
[2019-05-25] MEDS: Albuterol/Ipratropium 3 ML UPD VIAL IH (10:15)
[2019-05-25] MEDS: VANCOMYCIN 1,250 MG in Normal Saline 250 ML 166.667 MG IVPB (10:42)
[2019-05-25] MEDS: Albuterol/Ipratropium 3 ML UPD VIAL UPD (10:44)
[2019-05-25 10:45] LABS: Lactate-non-spesis 2.7 mmol/l (0.6-1.4)
[2019-05-25] MEDS: Budesonide/Formoterol 160/4.5 6 GM 60 PUFF INH IH ×2 (10:49→20:34)
[2019-05-25 11:18] LABS: Procalcitonin 0.2 ng/mL
--- NOTE | 2019-05-25 11:56 | PHARADMIT ---
Addendum entered by Raffaele Fernando III 06/02/19 14:07: Patient transferring to Swing Bed level II today. Addendum entered by Holly Dailey 05/31/19 13:57: Pharmacy Note Subjective HR still elevated even when sleeping per morning report Objective BP 90/58 HR-113 mag-1.8 Assessment diltiazem discontinued- was titrated carefully with no change in tachycardia metoprolol restarted- monitor BP and HR carefully PO mag replacement given Plan continue to watch BP and HR Addendum entered by Raffaele Fernando III 05/28/19 10:41: Pharmacy Note Subjective ABX changed to Linezolid and Aztreonam. BP have improved today. Objective VS-OK BP-120/78 HR-97 Mag-1.6 H&H,Plts,SCr,WBC-stable. Wgt-107.3 kg Assessment Blood culture no growth/72hrs, Plan Patient is unable to care for self and will require placement. She has not been accepted at local SNF's due to prior experiences, (does not play well) and CM far she may be with us for an extended period. Addendum entered by Lindsay Mancilla 05/27/19 09:26: Pharmacy Note Subjective Hypotensive episode overnight requiring a Norepi drip to be started - was not responsive to IV fluids Objective BP 68/50, HR 86, Mg 1.7, WBC 3.35 , H/H 35.6/10.7, Blood culture - no growth past 48 hrs Assessment Reason for drop in BP is unclear, possibly too much of a beta blockade Plan Continue titrating Norepi drip, DC metoprolol, abx continue for HCAP Original Note: Admission Pharmacy Clinical Review HCAP Code Status DNI Current Weight Wgt-106 kg Renally Cleared and Narrow Therapeutic Index Meds CrCl~ 54.6 mL/min Meds-OK QTc Value / Action Taken QTc-482 (Sertraline, Immodium, Flagyl, Protonix,) BP Control, Fever BP- 98/74 Tmax- 37C Electrolytes reviewed Na-141 K+3.6 Mag-2.0 DVT Prophylaxis Heparin SC Opiate Usage / Scheduled Bowel Regimen Ordered Yes Yes Plt/SCr for Heparin / Enoxaparin Plts-144 SCr-0.86 (was 2.62) INR for Warfarin inr-1.1 H/H stable, WBC/Bands H&H- 13.9/42.7 WBC- 7.85 Antibiotic appropriateness Aztreonam, Vancomycin, Flagyl Cultures and Sensitivities Blood- Urine-Pending Surgical ABX d/c within 24 hr NA DM control / Insulin Dosing BG-104 Heart Failure (Check EF%) (TIM's, B-Block, Diuretics) Lopresspr, IV to PO Switch No Home Meds Reviewed Yes Home Meds Not Ordered Macrobid, Advair-(TherSubst), Comments R-CRP- 1.70
[2019-05-25] MEDS: Lactobacillus Acidophilus CAP 1 CAP PO ×2 (13:39→19:57)
[2019-05-25] MEDS: Metoprolol 5 MG/5 ML VIAL 2.5 MG IVP (13:57)
[2019-05-25] MEDS: LORazepam 0.5 MG TAB PO ×2 (14:05→21:52)
[2019-05-25] MEDS: Normal Saline 1,000 ML 1000 ML IV (15:00)
--- NOTE | 2019-05-25 15:00 | IN_ITS ---
Date of service: 05/25/19 Time of Service: 10:55 PT Notes Inpatient Physical Therapy Evaluation Date: 05/08/2019 Referring Doctor: Francheska Charles MD PT Orders: PT CONSULT: Eval/treat Precautions: Fall. Standard. Non-ambulatory.. Patient Profile/Admitting Diagnosis: Patient is a 63-year-old female with past medical history significant for cirrhosis of liver atrial fibrillation, attention deficit disorder hyperthyroidism, and obesity PMHX: Medical History ADD (attention deficit disorder) Angina at rest Asthma Atrial fibrillation (Chronic) Bilateral cataracts (Chronic) Breast cancer Chest pain, atypical Chronic back pain (Chronic) Chronic rhinitis Cirrhosis of liver Compression fracture of spine Decreased visual acuity Depression (Chronic) Diastolic heart failure (Chronic) DJD (degenerative joint disease) (Chronic) Gastric bypass status for obesity GI (gastrointestinal bleed) History of DVD (Chronic) History of paroxysmal supraventricular tachycardia History of PSVT (paroxysmal supraventricular tachycardia) (Chronic) Hx of deep venous thrombosis Hyperparathyroidism , secondary, non-renal Hypertension IBS (irritable bowel syndrome) Insomnia Morbid obesity with BMI of 45.0-49.9, adult (Chronic) STACEY (obstructive sleep apnea) (Chronic) Osteoarthritis Osteopenia Oxygen dependent Paroxysmal atrial fibrillation (Chronic) PUD (peptic ulcer disease) Pulmonary HTN Right heart failure with reduced right ventricular function (Chronic) Superficial thrombophlebitis Tricuspid regurgitation Surgical History Breast, Mastectomy EGD - MAC Gastric Bypass History of biliary T-tube placement (Resolved 09/01/18) Social History/Home Situation: Patient is not a fully reliable historian. She states that she has been non-ambulatory since the day before [place] of last year. She reports that she has a motorized wheelchair that she uses inside the house and that she puts it adjacent to her bed and she transfers directly wit hout the need for standing up. Patient reports that she pays somebody out of pocket to come into the house to help out several days a week in the morning. Equipment owned/DME: Motorized wheelchair, hospital bed, CPAP machine Subjective: Patient reports that she did not sleep well last night and she does not feel well today. She feels tired and would prefer not to do anything. PT evaluation had to be offered 2-3 times today to patient. She finally agreed to doing bed level exercises but declined on doing any out of bed activities. Objective: General Observation: Patient seen resting in bed. Femoral central venous access on the left side. Anti-thromboembolic pump on bilateral legs. IV in right UE. Gao catheter in place. Mental Status: Alert and oriented as to person, plac, and time. Pain: 3/10 on low back area ROM: Right Upper Extremity: Shoulder Flexion WFL. Shoulder abduction WFL. Elbow flexion WFL. Wrist flexion WFL. Functional opening and closing of hand WFL. Left Upper Extremity: Shoulder Flexion WFL. Shoulder abduction WFL. Elbow flexion WFL. Wrist flexion WFL. Functional opening and closing of hand WFL. Right Lower Extremity: Hip flexion WFL. Hip abduction WFL. Knee flexion WFL. Ankle dorsiflexion WFL. Ankle plantarflexion WFL. Left Lower Extremity: Hip flexion WFL. Hip abduction WFL. Knee flexion WFL. Ankle dorsiflexion WFL. Ankle plantarflexion WFL. Strength: Right Upper Extremity: Shoulder flexors 4-/5. Shoulder abductors 4-/5. Elbow flexors 4-/5. Elbow extensors 4-/5. Lending Activities Supervisor strong. Left Upper Extremity: Shoulder flexors 4-/5. Shoulder abductors 4-/5. Elbow flexors 4-/5. Elbow extensors 4-/5. Lending Activities Supervisor strong. Right Lower Extremity: Hip flexors 3-/5. Hip abductors 3-/5. Knee flexors 3-/5. Knee extensors 3-/5. Ankle dorsiflexors 3-/5. Ankle plantarflexors 3-/5. Left Lower Extremity:Hip flexors 3-/5. Hip abductors 3-/5. Knee flexors 3-/5. Knee extensors 3-/5. Ankle dorsiflexors 3-/5. Ankle plantarflexors 3-/5. Sensation: Intact as to pain and pressure on bilateral lower extremities. Bed Mobility/Transfers: Rolling moderate assist Supine to sit maximum assist Sit to supine maximum assist Sit to stand not tested. Patient not ambulatory. Stand to sit not tested. Patient not ambulatory. Bed to chair not tested. Patient not ambulatory. Chair to bed not tested. Patient not ambulatory. Gait: Patient is nonambulatory. Unable to test. Balance: Static Sitting: Poor Dynamic Sitting: Poor Static Standing: Unable Dynamic Standing: Unable Special Tests: Mobility Limitations Standardized Measure [facility] AM-PAC 6 clicks Basic Mobility Inpatient Short Form: Raw Score: 11 CMS Score: 73% deficit Informed Consent/Education: Patient instructed in purpose of PT consult and plan of care. Assessment: Patient presents with clinical signs and symptoms consistent with current/admitting diagnoses that have resulted to mobility limitations, gait instability, generalized weakness, and impairment of motor control as demonstrated by the following impairment level findings: 1. Decreased strength to B LE major muscle groups 2. Impaired sitting/standing balance 3. Impaired activity tolerance 4. Limitation of joint range of motion in BLE joints Impairments are contributing to the following functional limitations: 1. Dependent bed mobility skills 2. Increased dependence with transfers 3. Increase completion time for mobility ADL performance 4. Increased fall risk Patient is assessed as a 40932 high complexity based on the following: History: 63-year-old obese female with diagnosis of sepsis, healthcare acquired pneumonia, hypotension, and acute on chronic kidney injury, and dehydration Examination: Demonstrable impairment in strength, balance, and range of motion with underlying impairments and functional limitations as documented above Presentation:Evolving Decision Makin high complexity Goals: Goals X1 week 1. Supine-Sit independent 2. Sit-Supine independent 3. Sit-Stand independent 4. Stand-Sit independent 5. Bed-Chair independent 6. Chair-Bed independent 7. Independent transfers using stand pivot technique while using a walker Plan of Care/Treatment Plan: 1-2x/day, 7 days/week x 1 week. Plan of care has been reviewed with the COLD PRESS OPERATOR providing the service under Physical Therapy direction. Initiate Physical Therapy intervention for strengthening, bed mobility, transfers, gait, stairs, balance training, use of assistive device. DISCHARGE RECOMMENDATIONS: Patient will benefit from residential facility placement in order to progress mobility level, strength, and balance in preparation for a safe discharge to home. TREATMENT CODE/TIME: 43495 x34 minutes beginning at 10:55 AM. Thank you very much for this referral. Yajaira Harrison PT, DPT, CLT [facility]
[2019-05-25] MEDS: Normal Saline 1,000 ML 999 ML IV (15:14)
--- NOTE | 2019-05-25 16:08 | PT.INNT ---
Date of service: 05/25/19 Time of Service: 16:08 PT Notes Patient refused two attempts at performing bed<>wheelchair transfer stating that her L femoral venous access line will get messed up. She did state that she may be able to try it out tomorrow morning. She declined bed level exercises stating that she is fatigued. Will see patient tomorrow morning for continued skilled services.
[2019-05-25] MEDS: Digoxin 0.5 MG/2 ML AMP 0.125 MG IVP (18:27)
[2019-05-25] MEDS: clonazePAM 1 MG TAB 2 MG PO (20:10)
[2019-05-25] MEDS: VANCOMYCIN 1,250 MG in Normal Saline 250 ML 166.7 MG IVPB (21:52)
[2019-05-25] MEDS: Acetaminophen 325 MG TAB PO (21:54)
[2019-05-26] VITALS (38 sets, daily range): BP systolic 72–115; BP diastolic 41–74; PULSE 82–142; RESP 14–31; TEMP 36.2–37.2; O2SAT 91–99
[2019-05-26] MEDS: AZTREONAM 2,000 MG in Normal Saline 100 ML 200 MG IVPB ×3 (01:40→17:49)
[2019-05-26] MEDS: Normal Saline 1,000 ML 150 ML IV ×3 (03:26→19:54)
[2019-05-26] MEDS: Heparin 5,000 UNITS/ML VIAL 5000 UNITS SC ×3 (04:00→19:41)
[2019-05-26] MEDS: LORazepam 0.5 MG TAB PO ×3 (04:07→20:09)
[2019-05-26] MEDS: oxyCODONE 5 mg/Acetaminophen 325 mg TAB 1 TAB PO ×3 (04:08→20:15)
[2019-05-26] MEDS: Adenosine 6 MG/2 ML VIAL IVP (06:08)
[2019-05-26] MEDS: Normal Saline Flush 10 ML SYR IVP ×3 (06:14→16:13)
[2019-05-26] MEDS: Metoprolol 5 MG/5 ML VIAL 2.5 MG IVP (06:15)
--- NOTE | 2019-05-26 06:16 | W.PM.PROGNOT ---
Date of Service Date of service: 05/26/19 Time of Service: 06:16 Assessment and Plan (1) Tachycardia: Current visit: Yes Status: Acute May prove to be simple sinus tachycardia, but persistence with unwavering rate for several hours raises concern for PSVT. May also be rebound sinus tach given that her beta trae has been on hold. Will give IV lopressor and monitor response. Subjective Interval history since last seen: Notified of persistent tachycardia. Chart reviewed. In with sepsis, has multiple medical problems, including h/o Afib. Staff note pulse 140, unwavering. BP currently 95/sys, approximately baseline. EKG shows P waves, narrow complex. GIven stable rate of 140 I am concerned for possible SVT or 2:1 flutter. CSP at bedside produces no slowing. Adensosine 6 mg produces brief slowing and no flutter waves are evident. Objective Objective Clinical Data: Abnormal lab results 05/25/19 05/25/19 05/25/19 Range/Units 06:25 06:25 10:35 MCV 102.2 H (80-95) fL MCH 33.3 H (27.0-33.0) pg MPV 11.6 H (8.0-11.0) fL Absolute Lymphocytes 0.74 L (1.2-3.4) k/cumm BUN 22 H D (7-18) mg/dL Glucose 104 H (70-100) mg/dL Lactate 2.7 H (0.6-1.4) mmol/l Calcium 8.2 L (8.5-10.1) mg/dL AST 11 L (15-37) U/L Alkaline Phosphatase 124 H (46-116) U/L C-Reactive Protein 1.70 H (0.0-0.3) mg/dL Total Protein 6.2 L (6.4-8.2) g/dL Albumin 2.3 L (3.4-5.0) g/dL Vital Signs Temperature 36.7 C 05/26/19 04:07 Temperature Source Temporal Artery Scan 05/26/19 04:00 Pulse 139 H 05/26/19 04:00 Pulse Rhythm Regular 05/25/19 09:40 Pulse 141 H 05/26/19 05:00 Respiratory Rate 28 H 05/26/19 05:00 Respiratory Effort Non-Labored 05/26/19 04:00 Respiratory Depth Normal 05/26/19 04:00 Respiratory Pattern Tachypnea 05/26/19 04:00 Blood Pressure 93/58 L 05/26/19 04:00 Blood Pressure Mean 69 05/26/19 04:00 Blood Pressure Position Supine 05/26/19 04:00 Pulse Oximetry 94 L 05/26/19 05:00 Oxygen Delivery Method Room Air 05/26/19 04:00 Oxygen Flow Rate 0 05/26/19 04:00 Pain Level 8 05/26/19 04:08 Comment 05/25/19 00:05 Intake & Output 05/25/19 05/25/19 05/26/19 11:59 23:59 11:59 Intake Total 2452.5 / 5492.5 3040.0 / 5492.5 1240 / 1240 Output Total 1150 / 2175 1025 / 2175 Balance 1302.5 / 3317.5 2015.0 / 3317.5 1240 / 1240 Weight 106 kg Intake: IV 1512.5 / 4062.5 2550.0 / 4062.5 1000 / 1000 Oral 940 / 1180 240 / 1180 240 / 240 Injectate 250 / 250 R abdomen biliary drain 250 / 250 Output: Drainage 250 / 550 300 / 550 R abdomen biliary drain 250 / 550 300 / 550 Urine 900 / 1625 725 / 1625 Other: Urine Color Dark Alejandra Dark Alejandra Dark Alejandra Urine Appearance Cloudy Clear Clear Sediment Sediment Sediment Urine Odor None Comment arndt catheter Indwelling arndt catheter draining QS. Stool Occult Blood Negative Negative Stool Size Copious Copious Stool Characteristics Soft Soft Formed Brown Voiding Methods Indwelling Catheter Laboratory Results WBC 7.85 k/cumm (4.4-10.8) D 05/25/19 06:25 RBC 4.18 m/cumm (4.00-5.20) 05/25/19 06:25 Hgb 13.9 g/dL (12.0-15.5) D 05/25/19 06:25 Hct 42.7 % (36.0-46.0) 05/25/19 06:25 MCV 102.2 fL (80-95) H 05/25/19 06:25 MCH 33.3 pg (27.0-33.0) H 05/25/19 06:25 MCHC 32.6 g/dL (32.0-36.0) 05/25/19 06:25 RDW 13.7 % (11.7-14.6) 05/25/19 06:25 Plt Count 144 x1000/uL (130-400) 05/25/19 06:25 MPV 11.6 fL (8.0-11.0) H 05/25/19 06:25 Immature Gran % 0.1 05/25/19 06:25 79.6 05/25/19 06:25 Cancelled 05/24/19 04:55 9.4 05/25/19 06:25 Atypical Lymphs % Cancelled 05/24/19 04:55 8.5 05/25/19 06:25 1.8 05/25/19 06:25 0.6 05/25/19 06:25 Cancelled 05/24/19 04:55 Cancelled 05/24/19 04:55 Cancelled 05/24/19 04:55 Absolute Neutrophils 6.25 k/cumm (1.2-6.7) 05/25/19 06:25 Absolute Lymphocytes 0.74 k/cumm (1.2-3.4) L 05/25/19 06:25 Absolute Monocytes 0.67 k/cumm (0.11-0.7) 05/25/19 06:25 Absolute Eosinophils 0.14 k/cumm (0.0-0.7) 05/25/19 06:25 Absolute Basophils 0.05 k/cumm (0.0-0.2) 05/25/19 06:25 Nucleated RBCs Cancelled 05/24/19 04:55 Cancelled 05/24/19 04:55 Cancelled 05/24/19 04:55 RBC Morphology Cancelled 05/24/19 04:55 Cancelled 05/24/19 04:55 Cancelled 05/24/19 04:55 Cancelled 05/24/19 04:55 Cancelled 05/24/19 04:55 Cancelled 05/24/19 04:55 Cancelled 05/24/19 04:55 Cancelled 05/24/19 04:55 Cancelled 05/24/19 04:55 Cancelled 05/24/19 04:55 Cancelled 05/24/19 04:55 Cancelled 05/24/19 04:55 Cancelled 05/24/19 04:55 Cancelled 05/24/19 04:55 Cancelled 05/24/19 04:55 Acanthocytes (Spur) Cancelled 05/24/19 04:55 Cancelled 05/24/19 04:55 PT 11.3 sec (9.3-11.0) H 05/24/19 06:15 INR 1.1 (0.9-1.1) 05/24/19 06:15 APTT 24.9 sec (21.0-31.4) 05/24/19 06:15 Sodium 141 mmol/L (136-145) 05/25/19 06:25 Potassium 3.6 mmol/L (3.5-5.1) 05/25/19 06:25 Chloride 106 mmol/L (98-107) 05/25/19 06:25 Carbon Dioxide 27.0 mmol/L (21.0-32.0) 05/25/19 06:25 8.0 mmol/L (3-11) 05/25/19 06:25 BUN 22 mg/dL (7-18) H D 05/25/19 06:25 0.86 mg/dL (0.55-1.02) D 05/25/19 06:25 >= 60.00 (mL/min/1.73m2) 05/25/19 06:25 Glucose 104 mg/dL (70-100) H 05/25/19 06:25 2.7 mmol/l (0.6-1.4) H 05/25/19 10:35 Calcium 8.2 mg/dL (8.5-10.1) L 05/25/19 06:25 Magnesium 2.0 mg/dL (1.8-2.4) 05/25/19 06:25 0.5 mg/dL (0.2-1.0) 05/25/19 06:25 0.20 mg/dL (0.00-0.20) 05/25/19 06:25 AST 11 U/L (15-37) L 05/25/19 06:25 ALT 12 U/L (12-78) 05/25/19 06:25 124 U/L (46-116) H 05/25/19 06:25 < 0.05 ng/mL (0.00-0.06) 05/24/19 06:15 1.70 mg/dL (0.0-0.3) H 05/25/19 06:25 6.2 g/dL (6.4-8.2) L 05/25/19 06:25 2.3 g/dL (3.4-5.0) L 05/25/19 06:25 27 U/L (73-393) L 05/24/19 06:15 0.2 ng/mL 05/25/19 10:35 TSH 1.62 uIU/mL (0.36-3.74) 05/24/19 12:40 Free T4 1.38 ng/dL (0.76-1.46) 05/24/19 12:40 Yellow (Yellow) 05/24/19 03:25 Clear (Clear) 05/24/19 03:25 5.0 (5-8) 05/24/19 03:25 Ur Specific [place] 1.025 (1.005-1.025) 05/24/19 03:25 100 mg/dL (Negative) H 05/24/19 03:25 15 mg/dL (Negative) H 05/24/19 03:25 Small (Negative) H 05/24/19 03:25 Negative (Negative) 05/24/19 03:25 Small (Negative) H 05/24/19 03:25 0.2 EU/dL (Up TO 0.2) 05/24/19 03:25 Ur Leukocyte Esterase Small (Negative) H 05/24/19 03:25 0-2 (0-2) 05/24/19 03:25 5-10 HPF (0-5) 05/24/19 03:25 Ur Epithelial Cells Rare HPF (Negative) 05/24/19 03:25 Negative HPF (Negative) 05/24/19 03:25 Few HPF (Negative) 05/24/19 03:25 Negative LPF (Negative) 05/24/19 03:25 Negative (Negative) 05/24/19 03:25 Moderate yeast (Negative) 05/24/19 03:25 Ur Culture Indicated? Yes 05/24/19 03:25 Negative mg/dL (Negative) 05/24/19 03:25
[2019-05-26 07:35] LABS: Abs Immature Grans 0.01 k/cumm (0.0-0.09); Absolute Basophil Count 0.01 k/cumm (0.0-0.2); Absolute Eosinophil Count 0.37 k/cumm (0.0-0.7); Absolute Lymphocyte Count 0.56 k/cumm (1.2-3.4); Absolute Monocyte Count 0.53 k/cumm (0.11-0.7); Absolute Neutrophil Count 3.83 k/cumm (1.2-6.7); Basophils % 0.2; HCT 40.5 % (36.0-46.0); HGB 12.4 g/dL (12.0-15.5); Immature Grans % 0.2; Lymphocytes % 10.5; Mean Corp. HGB Concentration 30.6 g/dL (32.0-36.0); Mean Corpuscular Hemoglobin 32.2 pg (27.0-33.0); Mean Corpuscular Volume 105.2 fL (80-95); Mean Platelet Volume 11.1 fL (8.0-11.0); Neutrophils % 72.1; Platelet Count 121 x1000/uL (130-400); RBC 3.85 m/cumm (4.00-5.20); RBC Distribution Width 13.9 % (11.7-14.6); White Blood Cell Count 5.31 k/cumm (4.4-10.8)
[2019-05-26 07:45] LABS: Anion Gap 5.6 mmol/L (3-11); BUN 12 mg/dL (7-18); CO2 25.4 mmol/L (21.0-32.0); CREATININE 0.57 mg/dL (0.55-1.02); Calcium 7.7 mg/dL (8.5-10.1); Chloride 113 mmol/L (98-107); Glucose 79 mg/dL (70-100); Magnesium 1.4 mg/dL (1.8-2.4); Potassium 3.9 mmol/L (3.5-5.1); Sodium 144 mmol/L (136-145)
[2019-05-26 08:00] LABS: Diff Comment RBC Morph Reviewed
[2019-05-26 08:01] LABS: Macrocytosis 3+
--- NOTE | 2019-05-26 09:05 | PDOC.CMPRO ---
- If Service Date Differs Date of service: 05/26/19 Time of Service: 09:06 Care Management Progress Note S/O: Prema is tearful prior to the team meeting with community supports and her son. She understands that returning home with supports is not going to be obtainable. She does not have any private help hired right now and home health is not able to support the caregivers she needs to be at home. She agrees to placement she states that she is afraid to lose control of her life by being in a facility. Prema is agreeable to referrals to health and rehab in [facility] and [place]. CM faxed referrals to both. Palliative care met with her today to discuss goals of care and will continue to follow as outpatient. A:Prema is 63 year old female admitted with pneumonia P:residential placement termination clerk care, referral sent to [facility] pending review and [facility]. Prema will remain at [facility] until a bed for LTC is identified and she is transferred. Ambulance transfer at time of discharge CM will coordinator.
[2019-05-26] MEDS: MAGNESIUM SULFATE 4 GM/100 ML BAG IVPB (09:29)
[2019-05-26] MEDS: Calcium 600mg/Vit D 200U TAB 2 TAB PO ×2 (09:32→19:40)
[2019-05-26] MEDS: Anastrozole 1 MG TAB PO (09:32)
[2019-05-26] MEDS: Glucosamine 500 MG CAP PO ×2 (09:32→19:40)
[2019-05-26] MEDS: Metoprolol 25 MG TAB PO ×3 (09:32→19:40)
[2019-05-26] MEDS: Ferrous Sulfate 325 MG TAB PO (09:33)
[2019-05-26] MEDS: Pantoprazole 40 MG TABCR PO (09:33)
[2019-05-26] MEDS: Ascorbic Acid 500 MG TAB PO ×2 (09:33→19:40)
[2019-05-26] MEDS: Methylphenidate 10 MG TAB PO (09:33)
[2019-05-26] MEDS: Sertraline 50 MG TAB 100 MG PO (09:33)
[2019-05-26] MEDS: Lactobacillus Acidophilus CAP 1 CAP PO ×3 (09:33→19:40)
--- NOTE | 2019-05-26 10:43 | OT.INNT ---
Date of service: 05/26/19 Time of Service: 10:43 Occupational Therapy Notes 05/26/19 OT attempted to see pt 3x this morning. Pt was unable or denied services all 3x. OT will resume OT services tomorrow morning. Adriana Zaragoza OTR/[facility]
[2019-05-26] MEDS: Loperamide 2 MG CAP PO ×3 (11:12→20:09)
[2019-05-26] MEDS: Budesonide/Formoterol 160/4.5 6 GM 60 PUFF INH IH ×2 (11:23→19:40)
[2019-05-26] MEDS: VANCOMYCIN 1,250 MG in Normal Saline 250 ML 166.7 MG IVPB (11:45)
--- NOTE | 2019-05-26 12:01 | PT.INTREAT ---
Date of service: 05/26/19 Time of Service: 12:01 PT Notes Inpatient Physical Therapy Treatment Note [facility] Date: 05/26/2019 PRECAUTIONS: Fall, non-ambulatory SUBJECTIVE: Prema reports that she has not walked or stood since , and that she does not want to try to stand today. Following extensive encouragement, patient is agreeable to attempting to stand while seated at edge of bed. OBJECTIVE: PAIN: No complaints of pain BED MOBILITY/TRANSFERS Rolling L/R: CGA to R Supine-sit: Min A with HOB 35 degrees Sit-supine: Min A with HOB flat Sit-stand: Mod A x2 for partial stand (performed x2) Stand-sit: Mod A x2 for partial stand (performed x2) Partial stand 2 x 30 seconds with Mod A x2 Patient performed partial bridging exercise x4 for bed mobility ASSESSMENT: Patient tolerated session with complaints of anxiety regarding standing. Patient was able to perform partial stand x2 for 30 seconds each, requiring moderate assist of 2. Patient would benefit from continued bed mobility and transfer training as well as global strengthening for improved mobility and activity tolerance. PLAN: Continue with PTs POC TREATMENT CODE/TIME: Session 1: 30 minutes; 37921 x2
--- NOTE | 2019-05-26 12:11 | W.PM.PROGNOT ---
Date of Service Date of service: 05/26/19 Time of Service: 12:11 Assessment and Plan (1) Sepsis: Current visit: No Status: Acute GPC's in 1 bottle from blood cultures 05/24 are likely a contaminant. However, the patient does have HCAP, present on admission. Continue IV vancomycin/aztreonam, day 3. Continue aggressive IVF. Repeat blood cultures are pending. (2) HCAP (healthcare-associated pneumonia): Current visit: Yes Status: Acute As above (3) Hypotension: Current visit: No Status: Acute In setting of sepsis, but also clinical dehydration. Rapid rate could also have been a contributor. This appears to have been resolved. Continue maintenance IVF. Monitor on tele. Could possibly transfer out of ICU later today. (4) STACEY (obstructive sleep apnea): Current visit: No Status: Chronic Provide CPAP. (5) Right heart failure with reduced right ventricular function: Current visit: No Status: Chronic Provide CPAP and carefully monitor volume status. (6) Atrial fibrillation: Current visit: No Status: Chronic S/p adenosine overnight - underlying rhythm - sinus tach. Responded to IV lopressor. PO lopressor given this am - continue to monitor on tele, IVF and treat infection. (7) Diastolic heart failure: Current visit: No Status: Chronic Monitor volume status while on IVF (8) Depression: Current visit: No Status: Chronic Contiue home zoloft (9) Dehydration: Current visit: Yes Status: Acute IVF (10) Acute kidney injury superimposed on chronic kidney disease: Current visit: Yes Status: Acute Due to urinary retention, dehydration and sepsis. Will continue IVF and monitor I/O's, daily weights, Cr. On discharge, per my conversation with Dr Gutiérrez, the patient will keep her arndt catheter. (11) DVT prophylaxis: Current visit: No Status: Acute heparin SC (12) Discharge planning issues: Current visit: No Status: Acute DNI Palliative care consulted Will need discharge Subjective Interval history since last seen: Prema is no longer hypotensive. Her last BP was 115/74. Her heart rate is in low 100's. She just had green diarrhea - she states that this is what her BM's normally look like. Denies dizziness, chest pain, shortness of breath, nausea, vomiting. Feels tired. Exam Narrative Exam Narrative: General: Anxious and tired appearing obese female, looks more awake today HEENT: EOMI, MMM Cardiovascular: RRR, mildly tachycardic Lungs: Diminished breath sounds B anteriorly Gastrointestinal: abdomen is soft, nontender, nondistended Genitourinary: has a arndt Extremities: BLE lymphedema; wearing SCD's, no edema in the feet Objective Objective Clinical Data: Abnormal lab results 05/26/19 05/26/19 Range/Units 07:09 07:09 RBC 3.85 L (4.00-5.20) m/cumm MCV 105.2 H (80-95) fL MCHC 30.6 L (32.0-36.0) g/dL Plt Count 121 L (130-400) x1000/uL MPV 11.1 H (8.0-11.0) fL Absolute Lymphocytes 0.56 L (1.2-3.4) k/cumm Chloride 113 H (98-107) mmol/L Calcium 7.7 L (8.5-10.1) mg/dL Magnesium 1.4 L (1.8-2.4) mg/dL Vital Signs Temperature 37.2 C 05/26/19 09:42 Temperature Source Temporal Artery Scan 05/26/19 09:42 Pulse 96 H 05/26/19 09:28 Pulse Rhythm Regular 05/25/19 09:40 Pulse 98 H 05/26/19 09:28 Respiratory Rate 22 05/26/19 09:28 Respiratory Effort 05/26/19 09:00 Respiratory Depth Normal 05/26/19 09:00 Respiratory Pattern Normal 05/26/19 09:00 Blood Pressure 115/74 05/26/19 09:28 Blood Pressure Mean 82 05/26/19 09:28 Blood Pressure Position Supine 05/26/19 04:00 Pulse Oximetry 97 05/26/19 09:28 Oxygen Delivery Method Room Air 05/26/19 09:42 Oxygen Flow Rate 0 05/26/19 09:42 Pain Level 7 05/26/19 10:07 Comment 05/25/19 00:05 Intake & Output 05/25/19 05/26/19 05/26/19 23:59 11:59 23:59 Intake Total 3290.0 / 5742.5 2340 / 2340 Output Total 1025 / 2175 850 / 850 Balance 2265.0 / 3567.5 1490 / 1490 Intake: IV 2800.0 / 4312.5 2100 / 2100 Oral 240 / 1180 240 / 240 Injectate 250 / 250 R abdomen biliary drain 250 / 250 Output: Drainage 300 / 550 400 / 400 R abdomen biliary drain 300 / 550 400 / 400 Urine 725 / 1625 450 / 450 Other: Urine Color Dark Alejandra Yellow Urine Appearance Clear Sediment Sediment Comment arndt catheter Arndt draining to gravity Stool Occult Blood Negative Negative Stool Size Copious Large Stool Characteristics Soft Soft Formed Formed Laboratory Results WBC 5.31 k/cumm (4.4-10.8) D 05/26/19 07:09 RBC 3.85 m/cumm (4.00-5.20) L 05/26/19 07:09 Hgb 12.4 g/dL (12.0-15.5) 05/26/19 07:09 Hct 40.5 % (36.0-46.0) 05/26/19 07:09 MCV 105.2 fL (80-95) H 05/26/19 07:09 MCH 32.2 pg (27.0-33.0) 05/26/19 07:09 MCHC 30.6 g/dL (32.0-36.0) L 05/26/19 07:09 RDW 13.9 % (11.7-14.6) 05/26/19 07:09 Plt Count 121 x1000/uL (130-400) L 05/26/19 07:09 MPV 11.1 fL (8.0-11.0) H 05/26/19 07:09 Immature Gran % 0.2 05/26/19 07:09 72.1 05/26/19 07:09 Cancelled 05/24/19 04:55 10.5 05/26/19 07:09 Atypical Lymphs % Cancelled 05/24/19 04:55 10.0 05/26/19 07:09 7.0 05/26/19 07:09 0.2 05/26/19 07:09 Cancelled 05/24/19 04:55 Cancelled 05/24/19 04:55 Cancelled 05/24/19 04:55 Absolute Neutrophils 3.83 k/cumm (1.2-6.7) 05/26/19 07:09 Absolute Lymphocytes 0.56 k/cumm (1.2-3.4) L 05/26/19 07:09 Absolute Monocytes 0.53 k/cumm (0.11-0.7) 05/26/19 07:09 Absolute Eosinophils 0.37 k/cumm (0.0-0.7) 05/26/19 07:09 Absolute Basophils 0.01 k/cumm (0.0-0.2) 05/26/19 07:09 Nucleated RBCs Cancelled 05/24/19 04:55 Rbc morph reviewed 05/26/19 07:09 Cancelled 05/24/19 04:55 RBC Morphology See below 05/26/19 07:09 Cancelled 05/24/19 04:55 Cancelled 05/24/19 04:55 Cancelled 05/24/19 04:55 Cancelled 05/24/19 04:55 Cancelled 05/24/19 04:55 Cancelled 05/24/19 04:55 3+ 05/26/19 07:09 Cancelled 05/24/19 04:55 Cancelled 05/24/19 04:55 Cancelled 05/24/19 04:55 Cancelled 05/24/19 04:55 Cancelled 05/24/19 04:55 Cancelled 05/24/19 04:55 Cancelled 05/24/19 04:55 Acanthocytes (Spur) Cancelled 05/24/19 04:55 Cancelled 05/24/19 04:55 PT 11.3 sec (9.3-11.0) H 05/24/19 06:15 INR 1.1 (0.9-1.1) 05/24/19 06:15 APTT 24.9 sec (21.0-31.4) 05/24/19 06:15 Sodium 144 mmol/L (136-145) 05/26/19 07:09 Potassium 3.9 mmol/L (3.5-5.1) 05/26/19 07:09 Chloride 113 mmol/L (98-107) H 05/26/19 07:09 Carbon Dioxide 25.4 mmol/L (21.0-32.0) 05/26/19 07:09 5.6 mmol/L (3-11) 05/26/19 07:09 BUN 12 mg/dL (7-18) D 05/26/19 07:09 0.57 mg/dL (0.55-1.02) 05/26/19 07:09 >= 60.00 (mL/min/1.73m2) 05/26/19 07:09 Glucose 79 mg/dL (70-100) 05/26/19 07:09 2.7 mmol/l (0.6-1.4) H 05/25/19 10:35 Calcium 7.7 mg/dL (8.5-10.1) L 05/26/19 07:09 Magnesium 1.4 mg/dL (1.8-2.4) L 05/26/19 07:09 0.5 mg/dL (0.2-1.0) 05/25/19 06:25 0.20 mg/dL (0.00-0.20) 05/25/19 06:25 AST 11 U/L (15-37) L 05/25/19 06:25 ALT 12 U/L (12-78) 05/25/19 06:25 124 U/L (46-116) H 05/25/19 06:25 < 0.05 ng/mL (0.00-0.06) 05/24/19 06:15 1.70 mg/dL (0.0-0.3) H 05/25/19 06:25 6.2 g/dL (6.4-8.2) L 05/25/19 06:25 2.3 g/dL (3.4-5.0) L 05/25/19 06:25 27 U/L (73-393) L 05/24/19 06:15 0.2 ng/mL 05/25/19 10:35 TSH 1.62 uIU/mL (0.36-3.74) 05/24/19 12:40 Free T4 1.38 ng/dL (0.76-1.46) 05/24/19 12:40 Yellow (Yellow) 05/24/19 03:25 Clear (Clear) 05/24/19 03:25 5.0 (5-8) 05/24/19 03:25 Ur Specific [place] 1.025 (1.005-1.025) 05/24/19 03:25 100 mg/dL (Negative) H 05/24/19 03:25 15 mg/dL (Negative) H 05/24/19 03:25 Small (Negative) H 05/24/19 03:25 Negative (Negative) 05/24/19 03:25 Small (Negative) H 05/24/19 03:25 0.2 EU/dL (Up TO 0.2) 05/24/19 03:25 Ur Leukocyte Esterase Small (Negative) H 05/24/19 03:25 0-2 (0-2) 05/24/19 03:25 5-10 HPF (0-5) 05/24/19 03:25 Ur Epithelial Cells Rare HPF (Negative) 05/24/19 03:25 Negative HPF (Negative) 05/24/19 03:25 Few HPF (Negative) 05/24/19 03:25 Negative LPF (Negative) 05/24/19 03:25 Negative (Negative) 05/24/19 03:25 Moderate yeast (Negative) 05/24/19 03:25 Ur Culture Indicated? Yes 05/24/19 03:25 Negative mg/dL (Negative) 05/24/19 03:25
--- NOTE | 2019-05-26 14:45 | PT.INNT ---
Date of service: 05/26/19 Time of Service: 14:45 PT Notes 05/26/2019 Patient laying in bed with hat pulled over her eyes and BiPAP mask on. Patient is somewhat difficult to arouse. Once awake she refuses participation in afternoon PT session, stating I just fell asleep. Will attempt to resume PT services tomorrow morning.
--- NOTE | 2019-05-26 17:13 | PCNE_ITS ---
Date of service: 05/26/19 History of Present Illness Chief Complaint: inability to care for self at home; goals of care discussion Narrative: Prema has had 4 ER visits in the month of April and one admission, this one. She has multiple health problems, and recently wasn't able to care pr operly for herself at home. She was trying to avoid a SNF stay but now recognizes that this likely will help her more than friends and HH can. Consults Consult date: 05/26/19 Requesting physician: Francheska Charles Assessment and Plan (1) Discharge planning issues: Current visit: No Status: Acute Unable to care for herself at this time. She would like to return home, perhaps, once stronger. She knows her move to SNF may be permanent though. Struggling with this. (2) Comfort measures only status: Current visit: No Status: Resolved Asked for this on admission, but with further reflection, doesn't want this implemented now. Willing to take medications and other life-extending treatments, short of CPR. (3) Anxiety: Current visit: Yes Status: Chronic chronic problem hard for her to focus and concentrate when feeling anxious admits she sometimes says what she thinks others want her to say (4) Illiterate: Current visit: Yes Status: Acute very ashamed about this tries to hide it Review of Systems Constitutional Reports daytime sleepiness, Reports difficulty sleeping, Reports fatigue and Reports weakness Eyes Reports requires corrective lenses ENT Reports dizziness and Reports dry mouth Cardiovascular Reports edema and Reports dyspnea on exertion Respiratory Reports dyspnea on exertion Gastrointestinal Reports abdominal pain Genitourinary Reports urinary incontinence Musculoskeletal Reports muscle weakness Neurologic Reports dizziness and Reports weakness Psychiatric Reports abnormal sleep pattern, Reports anxiety and Reports difficulty concentrating Endocrine Reports fatigue Hematologic/Lymphatic Reports easy bruising [facility] Medical History ADD (attention deficit disorder) Angina at rest Asthma Atrial fibrillation (Chronic) Atrial fibrillation Bilateral cataracts (Chronic) Breast cancer Chest pain, atypical Chronic back pain (Chronic) Chronic pain Chronic rhinitis Cirrhosis of liver Compression fracture of spine Decreased visual acuity Depression (Chronic) Depression Diastolic heart failure (Chronic) Diastolic heart failure DJD (degenerative joint disease) (Chronic) Gastric bypass status for obesity GI (gastrointestinal bleed) History of DVD (Chronic) History of paroxysmal supraventricular tachycardia History of PSVT (paroxysmal supraventricular tachycardia) (Chronic) Hx of deep venous thrombosis Hyperparathyroidism , secondary, non-renal Hypertension IBS (irritable bowel syndrome) Insomnia Morbid obesity Morbid obesity with BMI of 45.0-49.9, adult (Chronic) STACEY (obstructive sleep apnea) (Chronic) STACEY (obstructive sleep apnea) Osteoarthritis Osteopenia Oxygen dependent Paroxysmal atrial fibrillation (Chronic) PUD (peptic ulcer disease) Pulmonary HTN Right heart failure with reduced right ventricular function (Chronic) Superficial thrombophlebitis Tricuspid regurgitation Surgical History Breast, Mastectomy EGD - MAC Gastric Bypass History of biliary T-tube placement (Resolved 09/01/18) Family History Mother COPD (chronic obstructive pulmonary disease) Father Glioblastoma Son No problems noted. Son Bipolar 1 disorder ADHD Diabetes Social History Smoking/Tobacco Use Status: Former Tobacco Use Second Hand Exposure: No Alcohol Intake: never Drug use: Never Substance use type: does not use Caregiver/Support person: No Household members: none Housing: apartment Number of Children: 2 number of grandchildren: 1 Communication Needs: Cannot Read Education Level: middle school Do you need help understanding health information?: Always Do you feel safe at home: Yes Do you feel safe in your relationship?: Yes Exam Const General: no acute distress, anxious, disheveled and ill appearing Nutritional Appearance: obese Orientation: alert, awake, oriented to person and oriented to place [facility] Head: normocephalic and atraumatic Ears: hearing grossly normal bilaterally General nose exam: external nose normal Face and sinus: face symmetric and dry mucous membranes Eyes Conjunctivae: conjunctivae normal Sclera: sclerae normal Neck Neck: no lymphadenopathy and no JVD Resp Effort & Inspection: normal respiratory effort and able to speak in complete se ntences Auscultation: clear to auscultation bilaterally and diminished lung sounds Cardio Jugular venous pressure: no JVD Rate: tachycardic Rhythm: regular rhythm Heart Sounds: S1 normal and S2 normal GI Inspection: incision and obesity Palpation: soft Auscultation: normal bowel sounds Skin General skin exam: dry skin and scars Hair: normal Neuro General: alert and awake Cognition: normal cognition (though anxious and afraid/worried) Speech: speech normal Results Last Vital Signs Temp 97.2 F L 05/26/19 16:48 Pulse 90 05/26/19 15:58 Resp 20 05/26/19 16:00 BP 93/46 L 05/26/19 16:48 Pulse Ox 96 05/26/19 16:48 Labs : 05/26/19 07:09 05/26/19 07:09 Laboratory Results - last 24 hr 05/26/19 05/26/19 07:09 07:09 WBC 5.31 D RBC 3.85 L Hgb 12.4 Hct 40.5 MCV 105.2 H MCH 32.2 MCHC 30.6 L RDW 13.9 Plt Count 121 L MPV 11.1 H Immature Gran % 0.2 Neutrophils % 72.1 Lymphocytes % 10.5 Monocytes % 10.0 Eosinophils % 7.0 Basophils % 0.2 Absolute Neutrophils 3.83 Absolute Lymphocytes 0.56 L Absolute Monocytes 0.53 Absolute Eosinophils 0.37 Absolute Basophils 0.01 Differential Comment Rbc morph reviewed RBC Morphology See below Macrocytosis 3+ Sodium 144 Potassium 3.9 Chloride 113 H Carbon Dioxide 25.4 Anion Gap 5.6 BUN 12 D Creatinine 0.57 Estimated GFR/1.73 m2 >= 60.00 Glucose 79 Calcium 7.7 L Magnesium 1.4 L
[2019-05-26] MEDS: clonazePAM 1 MG TAB 2 MG PO (19:40)
[2019-05-26] MEDS: Triamcinolone 0.1% CR 15 GM TUBE TP (19:55)
[2019-05-26] MEDS: Acetaminophen 325 MG TAB PO (20:14)
[2019-05-27] VITALS (62 sets, daily range): BP systolic 43–106; BP diastolic 18–79; PULSE 66–100; RESP 10–31; TEMP 36.2–37.4; O2SAT 92–100
[2019-05-27] MEDS: AZTREONAM 2,000 MG in Normal Saline 100 ML 200 MG IVPB ×3 (03:11→18:25)
[2019-05-27] MEDS: Nystatin POWDER 60 GM JAR TP ×3 (03:12→20:00)
[2019-05-27] MEDS: Heparin 5,000 UNITS/ML VIAL 5000 UNITS SC ×3 (03:58→18:25)
[2019-05-27] MEDS: Normal Saline 1,000 ML 150 ML IV ×2 (03:58→10:40)
[2019-05-27] MEDS: Normal Saline Flush 10 ML SYR IVP ×2 (05:20→15:45)
[2019-05-27 06:54] LABS: Abs Immature Grans 0.01 k/cumm (0.0-0.09); Absolute Basophil Count 0.02 k/cumm (0.0-0.2); Absolute Lymphocyte Count 0.71 k/cumm (1.2-3.4); Absolute Monocyte Count 0.27 k/cumm (0.11-0.7); Absolute Neutrophil Count 1.94 k/cumm (1.2-6.7); Basophils % 0.6; Eosinophils % 11.9; HCT 35.6 % (36.0-46.0); HGB 10.7 g/dL (12.0-15.5); Immature Grans % 0.3; Lactate-non-spesis 1.4 mmol/l (0.6-1.4); Lymphocytes % 21.2; Mean Corp. HGB Concentration 30.1 g/dL (32.0-36.0); Mean Corpuscular Hemoglobin 32.1 pg (27.0-33.0); Mean Corpuscular Volume 106.9 fL (80-95); Mean Platelet Volume 11.1 fL (8.0-11.0); Monocytes % 8.1; Neutrophils % 57.9; Platelet Count 109 x1000/uL (130-400); RBC 3.33 m/cumm (4.00-5.20); RBC Distribution Width 14.1 % (11.7-14.6); White Blood Cell Count 3.35 k/cumm (4.4-10.8)
[2019-05-27 07:17] LABS: Anion Gap 4.7 mmol/L (3-11); BUN 8 mg/dL (7-18); CO2 25.3 mmol/L (21.0-32.0); CREATININE 0.44 mg/dL (0.55-1.02); Chloride 114 mmol/L (98-107); Glucose 74 mg/dL (70-100); Magnesium 1.7 mg/dL (1.8-2.4); Potassium 3.7 mmol/L (3.5-5.1); Sodium 144 mmol/L (136-145)
[2019-05-27 07:31] LABS: Procalcitonin 0.2 ng/mL
[2019-05-27 07:34] LABS: Vancomycin, Trough 24.4 ug/mL (10.0-20.0)
[2019-05-27] MEDS: Triamcinolone 0.1% CR 15 GM TUBE TP ×2 (08:07→20:01)
[2019-05-27] MEDS: Budesonide/Formoterol 160/4.5 6 GM 60 PUFF INH IH ×2 (08:07→18:38)
[2019-05-27] MEDS: Methylphenidate 10 MG TAB PO (08:09)
[2019-05-27] MEDS: Sertraline 50 MG TAB 100 MG PO (08:09)
[2019-05-27] MEDS: Ascorbic Acid 500 MG TAB PO ×2 (08:09→18:25)
[2019-05-27] MEDS: Pantoprazole 40 MG TABCR PO (08:09)
[2019-05-27] MEDS: Ferrous Sulfate 325 MG TAB PO (08:09)
[2019-05-27] MEDS: Loperamide 2 MG CAP PO ×3 (08:09→18:24)
[2019-05-27] MEDS: Lactobacillus Acidophilus CAP 1 CAP PO ×3 (08:09→18:25)
[2019-05-27] MEDS: Glucosamine 500 MG CAP PO ×2 (08:10→18:24)
[2019-05-27] MEDS: Calcium 600mg/Vit D 200U TAB 2 TAB PO ×2 (08:10→18:25)
[2019-05-27] MEDS: Metoprolol 25 MG TAB PO (08:10)
[2019-05-27] MEDS: Anastrozole 1 MG TAB PO (08:10)
--- NOTE | 2019-05-27 08:26 | W.PM.PROGNOT ---
Date of Service Date of service: 05/27/19 Time of Service: 08:26 Assessment and Plan (1) Sepsis: Current visit: No Status: Acute Staph Auricularis in 1 bottle from blood cultures 05/24 - will discuss with ID. However, the patient does have HCAP, present on admission. Continue IV vancomycin/aztreonam, day 4. Decrease IVF. Repeat blood cultures are negative to date. Current episode of hypotension is likely more excessive beta blockade related than sepsis. She does not look sick and while on pressors she is not tachycardic, which you would expect a septic patient to be. (2) HCAP (healthcare-associated pneumonia): Current visit: Yes Status: Acute As above (3) Hypotension: Current visit: No Status: Acute At this point, the patient is no longer septic-appearing, but hypotension accompanied by lack of tachycardia is suggestive of excessive beta blockade. Weaning pressors. We decreased IVF rate given the beginnings of pulmonary edema. Initial hypotension on presentation was different - it happened in setting of sepsis, but also clinical dehydration. Rapid rate could also have been a contributor. Continue to monitor in ICU. (4) STACEY (obstructive sleep apnea): Current visit: No Status: Chronic Provide CPAP. (5) Right heart failure with reduced right ventricular function: Current visit: No Status: Chronic Provide CPAP and carefully monitor volume status. (6) Atrial fibrillation: Current visit: No Status: Chronic In NSR now. Lopressor dose to be decreased once resumed/when off of pressors. (7) Diastolic heart failure: Current visit: No Status: Chronic Monitor volume status while on IVF (8) Depression: Current visit: No Status: Chronic Contiue home zoloft (9) Dehydration: Current visit: Yes Status: Resolved Clinically resolved (10) Acute kidney injury superimposed on chronic kidney disease: Current visit: Yes Status: Resolved Resolved. Initially, due to urinary retention, dehydration and sepsis. Weaning IVF. On discharge, per my conversation with Dr Gutiérrez, the patient will keep her arndt catheter. (11) DVT prophylaxis: Current visit: No Status: Acute heparin SC (12) Discharge planning issues: Current visit: No Status: Acute DNI Palliative care consulted - evidently the code status discussed with Dr Dorado was DNR - with me the patient wants to be DNI. Will clarify with Dr Dorado. Will need SNF on discharge Subjective Interval history since last seen: Ms Watson states she is sad. She thinks that neither her son nor her friend Ana want her in their life. We discussed how neither of them has ever said this to her and how it is her own feeling/perception. She is inconsolable and crying. She requests ativan. Put on pressors at 6:45 am, didn't respond to fliud bolus. 4:45 am BP down. Now MAP in 60's. Current BP 98/67. 4 mcg/min levophed. HR 80's - SR/1st degree heart block. Billiary drain put out 500 cc overnight. 10 L positive since admission. Pressors are being weaned off. Spent the night on CPAP. On room air today. She complains of abdominal pain this morning. This has now resolved - states she always has this pain when she has to have a bowel movement. She had one earlier today. Denies dizziness, chest pain, shortness of breath, nausea. States she is nervous. Exam Narrative Exam Narrative: General: Anxious tearful female, who does not look that different from her baseline and does not look toxic HEENT: EOMI, MMM Cardiovascular: RRR, ?quiet FERMÍN Lungs: Diminished breath sounds B anteriorly, coughing when laying flat Gastrointestinal: abdomen is soft, nontender, nondistended Genitourinary: has a arndt Extremities: BLE lymphedema; wearing SCD's, no edema in the feet Objective Objective Clinical Data: Abnormal lab results 05/27/19 05/27/19 05/27/19 Range/Units 06:20 06:20 06:20 WBC 3.35 L D (4.4-10.8) k/cumm RBC 3.33 L (4.00-5.20) m/cumm Hgb 10.7 L (12.0-15.5) g/dL Hct 35.6 L (36.0-46.0) % MCV 106.9 H (80-95) fL MCHC 30.1 L (32.0-36.0) g/dL Plt Count 109 L (130-400) x1000/uL MPV 11.1 H (8.0-11.0) fL Absolute Lymphocytes 0.71 L (1.2-3.4) k/cumm Chloride 114 H (98-107) mmol/L Creatinine 0.44 L (0.55-1.02) mg/dL Calcium 8.0 L (8.5-10.1) mg/dL Magnesium 1.7 L (1.8-2.4) mg/dL Vancomycin Trough 24.4 H* (10.0-20.0) ug/mL Vital Signs Temperature 36.2 C L 05/27/19 02:55 Temperature Source Temporal Artery Scan 05/26/19 22:00 Pulse 87 05/27/19 06:45 Pulse Rhythm Regular 05/25/19 09:40 Pulse 85 05/27/19 03:01 Respiratory Rate 25 H 05/27/19 03:01 Respiratory Effort 05/27/19 02:55 Respiratory Depth Shallow 05/27/19 02:55 Respiratory Pattern Normal 05/27/19 02:55 Blood Pressure 80/46 L 05/27/19 06:45 Blood Pressure Mean 60 05/27/19 03:01 Blood Pressure Position Supine 05/26/19 16:48 Pulse Oximetry 98 05/27/19 03:01 Oxygen Delivery Method Cpap 05/27/19 02:55 Oxygen Flow Rate 21 05/27/19 02:55 Fraction of Inspired Oxygen (FIO2) 21 05/26/19 13:00 Pain Level 0 05/26/19 16:48 Comment 05/25/19 00:05 Intake & Output 05/26/19 05/26/19 05/27/19 11:59 23:59 11:59 Intake Total 3340 / 5755 2415 / 5755 2092.5 / 2092.5 Output Total 850 / 2335 1485 / 2335 725 / 725 Balance 2490 / 3420 930 / 3420 1367.5 / 1367.5 Weight 106 kg Intake: IV 3100 / 4550 1450 / 4550 1792.5 / 1792.5 Oral 240 / 1080 840 / 1080 Injectate 125 / 125 300 / 300 R abdomen biliary drain 125 / 125 300 / 300 Output: Drainage 400 / 800 400 / 800 R abdomen biliary drain 400 / 800 400 / 800 Urine 450 / 1285 835 / 1285 725 / 725 Stool 250 / 250 Other: Urine Color Yellow Dark Alejandra Straw Urine Appearance Sediment Clear Cloudy Comment Arndt draining to gravity arndt patent & draining arndt patent & draining Stool Occult Blood Negative Negative Stool Size Large Large Stool Characteristics Soft Soft Formed Liquid Laboratory Results WBC 3.35 k/cumm (4.4-10.8) L D 05/27/19 06:20 RBC 3.33 m/cumm (4.00-5.20) L 05/27/19 06:20 Hgb 10.7 g/dL (12.0-15.5) L 05/27/19 06:20 Hct 35.6 % (36.0-46.0) L 05/27/19 06:20 MCV 106.9 fL (80-95) H 05/27/19 06:20 MCH 32.1 pg (27.0-33.0) 05/27/19 06:20 MCHC 30.1 g/dL (32.0-36.0) L 05/27/19 06:20 RDW 14.1 % (11.7-14.6) 05/27/19 06:20 Plt Count 109 x1000/uL (130-400) L 05/27/19 06:20 MPV 11.1 fL (8.0-11.0) H 05/27/19 06:20 Immature Gran % 0.3 05/27/19 06:20 57.9 05/27/19 06:20 Cancelled 05/24/19 04:55 21.2 05/27/19 06:20 Atypical Lymphs % Cancelled 05/24/19 04:55 8.1 05/27/19 06:20 11.9 05/27/19 06:20 0.6 05/27/19 06:20 Cancelled 05/24/19 04:55 Cancelled 05/24/19 04:55 Cancelled 05/24/19 04:55 Absolute Neutrophils 1.94 k/cumm (1.2-6.7) 05/27/19 06:20 Absolute Lymphocytes 0.71 k/cumm (1.2-3.4) L 05/27/19 06:20 Absolute Monocytes 0.27 k/cumm (0.11-0.7) 05/27/19 06:20 Absolute Eosinophils 0.40 k/cumm (0.0-0.7) 05/27/19 06:20 Absolute Basophils 0.02 k/cumm (0.0-0.2) 05/27/19 06:20 Nucleated RBCs Cancelled 05/24/19 04:55 Rbc morph reviewed 05/26/19 07:09 Cancelled 05/24/19 04:55 RBC Morphology See below 05/26/19 07:09 Cancelled 05/24/19 04:55 Cancelled 05/24/19 04:55 Cancelled 05/24/19 04:55 Cancelled 05/24/19 04:55 Cancelled 05/24/19 04:55 Cancelled 05/24/19 04:55 3+ 05/26/19 07:09 Cancelled 05/24/19 04:55 Cancelled 05/24/19 04:55 Cancelled 05/24/19 04:55 Cancelled 05/24/19 04:55 Cancelled 05/24/19 04:55 Cancelled 05/24/19 04:55 Cancelled 05/24/19 04:55 Acanthocytes (Spur) Cancelled 05/24/19 04:55 Cancelled 05/24/19 04:55 PT 11.3 sec (9.3-11.0) H 05/24/19 06:15 INR 1.1 (0.9-1.1) 05/24/19 06:15 APTT 24.9 sec (21.0-31.4) 05/24/19 06:15 Sodium 144 mmol/L (136-145) 05/27/19 06:20 Potassium 3.7 mmol/L (3.5-5.1) 05/27/19 06:20 Chloride 114 mmol/L (98-107) H 05/27/19 06:20 Carbon Dioxide 25.3 mmol/L (21.0-32.0) 05/27/19 06:20 4.7 mmol/L (3-11) 05/27/19 06:20 BUN 8 mg/dL (7-18) 05/27/19 06:20 0.44 mg/dL (0.55-1.02) L 05/27/19 06:20 >= 60.00 (mL/min/1.73m2) 05/27/19 06:20 Glucose 74 mg/dL (70-100) 05/27/19 06:20 1.4 mmol/l (0.6-1.4) 05/27/19 06:20 Calcium 8.0 mg/dL (8.5-10.1) L 05/27/19 06:20 Magnesium 1.7 mg/dL (1.8-2.4) L 05/27/19 06:20 0.5 mg/dL (0.2-1.0) 05/25/19 06:25 0.20 mg/dL (0.00-0.20) 05/25/19 06:25 AST 11 U/L (15-37) L 05/25/19 06:25 ALT 12 U/L (12-78) 05/25/19 06:25 124 U/L (46-116) H 05/25/19 06:25 < 0.05 ng/mL (0.00-0.06) 05/24/19 06:15 1.70 mg/dL (0.0-0.3) H 05/25/19 06:25 6.2 g/dL (6.4-8.2) L 05/25/19 06:25 2.3 g/dL (3.4-5.0) L 05/25/19 06:25 27 U/L (73-393) L 05/24/19 06:15 0.2 ng/mL 05/27/19 06:20 TSH 1.62 uIU/mL (0.36-3.74) 05/24/19 12:40 Free T4 1.38 ng/dL (0.76-1.46) 05/24/19 12:40 Yellow (Yellow) 05/24/19 03:25 Clear (Clear) 05/24/19 03:25 5.0 (5-8) 05/24/19 03:25 Ur Specific [place] 1.025 (1.005-1.025) 05/24/19 03:25 100 mg/dL (Negative) H 05/24/19 03:25 15 mg/dL (Negative) H 05/24/19 03:25 Small (Negative) H 05/24/19 03:25 Negative (Negative) 05/24/19 03:25 Small (Negative) H 05/24/19 03:25 0.2 EU/dL (Up TO 0.2) 05/24/19 03:25 Ur Leukocyte Esterase Small (Negative) H 05/24/19 03:25 0-2 (0-2) 05/24/19 03:25 5-10 HPF (0-5) 05/24/19 03:25 Ur Epithelial Cells Rare HPF (Negative) 05/24/19 03:25 Negative HPF (Negative) 05/24/19 03:25 Few HPF (Negative) 05/24/19 03:25 Negative LPF (Negative) 05/24/19 03:25 Negative (Negative) 05/24/19 03:25 Moderate yeast (Negative) 05/24/19 03:25 Ur Culture Indicated? Yes 05/24/19 03:25 Negative mg/dL (Negative) 05/24/19 03:25 Vancomycin Trough 24.4 ug/mL (10.0-20.0) H* 05/27/19 06:20 CXR 05/27/2019: No evidence of acute cardiopulmonary disease (official read). Per my read, there is pulmonary edema. Poor inspiratory effort. Rotated film.
--- NOTE | 2019-05-27 08:42 | PDOC.CMPRO ---
Care Management Progress Note S/O: Prema required an increase in treatment overnight; per MD pressors were started. Prema remains ICU level of care and requires constant monitoring at this time. CM continues to follow and support discharge planning considerations. Plan remains for [facility]ream to transition to SNF for LTC when medically stable per MD. 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. Prema will remain at [facility] until a bed for LTC is identified and she is transferred. Ambulance transfer at time of discharge CM will coordinator.
--- NOTE | 2019-05-27 08:49 | DI.RAD_ITS ---
SYMPTOM/DIAGNOSIS: FOLLOW UP PNEUONIA UPRIGHT AP CHEST: The lungs are free of gross infiltrate. There is no pleural effusion. The heart is top limits of normal in size. SUMMARY: No evidence of acute cardiopulmonary disease.
--- NOTE | 2019-05-27 09:16 | OT.INTREAT ---
Date of service: 05/27/19 Time of Service: 09:00 Occupational Therapy Notes Occupational Therapy Inpatient Treatment Note Date: 05/27/19 PRECAUTIONS: Fall, Standard SUBJECTIVE: Pt was lying in bed working with nursing. She states that she is willing to wash her face and (B) UE. OBJECTIVE: PAIN:c/o pain but overall she was not able to specify. BATHING: Lying in bed with min vc Upper Body: (I) washing face and min (A) washing from (B) elbow to shoulders Lower Body: NT pt denies ASSESSMENT/PLAN: Pt was emotional during session at times and then would stop crying and ask for a movie or her table moved. She denied washing anything other than her face and her (B) upper arms. She was able to perform this with increased (I) but was not receptive to performing anything other than what she wants to perform. OT will monitor pt at next session and progress accordingly. TREATMENT CODES/TIME: 30201, 15 minutes (09:00) Adriana Zaragoza OTR/[facility]
[2019-05-27] MEDS: MAGNESIUM SULFATE 2 GM/50 ML BAG IVPB (09:45)
[2019-05-27] MEDS: LORazepam 0.5 MG TAB PO ×2 (11:17→20:00)
--- NOTE | 2019-05-27 11:36 | PT.INNT ---
Date of service: 05/27/19 Time of Service: 11:36 PT Notes 05/27/19 Hold morning PT session, as per MD. Will attempt to resume PT services this afternoon, if medically cleared.
[2019-05-27] MEDS: LINEZOLID 600 MG/300 ML BAG 300 MG IVPB (18:45)
[2019-05-27] MEDS: clonazePAM 1 MG TAB 2 MG PO (19:56)
[2019-05-27] MEDS: Acetaminophen 325 MG TAB PO (19:56)
[2019-05-28] VITALS (59 sets, daily range): BP systolic 68–120; BP diastolic 42–102; PULSE 74–133; RESP 14–32; TEMP 36.6–37.1; O2SAT 93–100
[2019-05-28] MEDS: Normal Saline 1,000 ML 75 ML IV (02:35)
[2019-05-28] MEDS: AZTREONAM 2,000 MG in Normal Saline 100 ML 200 MG IVPB ×3 (02:37→17:54)
[2019-05-28] MEDS: Normal Saline Flush 10 ML SYR IVP ×2 (06:21→07:48)
[2019-05-28] MEDS: Heparin 5,000 UNITS/ML VIAL 5000 UNITS SC ×3 (06:22→21:09)
[2019-05-28 07:02] LABS: Abs Immature Grans 0.01 k/cumm (0.0-0.09); Absolute Basophil Count 0.02 k/cumm (0.0-0.2); Absolute Eosinophil Count 0.35 k/cumm (0.0-0.7); Absolute Lymphocyte Count 0.68 k/cumm (1.2-3.4); Absolute Monocyte Count 0.22 k/cumm (0.11-0.7); Absolute Neutrophil Count 2.63 k/cumm (1.2-6.7); Basophils % 0.5; HGB 10.8 g/dL (12.0-15.5); Immature Grans % 0.3; Lymphocytes % 17.4; Mean Corpuscular Hemoglobin 31.9 pg (27.0-33.0); Mean Corpuscular Volume 106.2 fL (80-95); Mean Platelet Volume 10.9 fL (8.0-11.0); Monocytes % 5.6; Neutrophils % 67.2; Platelet Count 118 x1000/uL (130-400); RBC 3.39 m/cumm (4.00-5.20); White Blood Cell Count 3.91 k/cumm (4.4-10.8)
[2019-05-28 07:14] LABS: Anion Gap 3.9 mmol/L (3-11); BUN 5 mg/dL (7-18); CO2 27.1 mmol/L (21.0-32.0); CREATININE 0.51 mg/dL (0.55-1.02); Calcium 7.9 mg/dL (8.5-10.1); Chloride 114 mmol/L (98-107); Glucose 72 mg/dL (70-100); Magnesium 1.6 mg/dL (1.8-2.4); Sodium 145 mmol/L (136-145)
[2019-05-28] MEDS: LINEZOLID 600 MG/300 ML BAG 300 MG IVPB (07:48)
[2019-05-28 07:51] LABS: Anisocytosis 1+; Diff Comment RBC Morph Reviewed; Hypochromasia 1+
[2019-05-28 07:52] LABS: Macrocytosis 2+; Polychromasia Present
--- NOTE | 2019-05-28 07:56 | W.PALPGNOTE ---
Date of service: 05/28/19 Assessment and Plan (1) Goals of care, counseling/discussion: Current visit: Yes Status: Acute Unable to clarify her wishes given her preference not to meet with me today. Subjective Patient reports: other (irritable) Interval history since last seen: I was asked by Dr Charles to clarify Prema's code status. I understood her to say that she was dnr/dni when I saw her for my initial consult on this admission. When I was visiting, first Ivelisse Arriaga, RN/CM and then her friend was with her. On this visit, Prema was quite dismissive of me. She did not want to talk to me. She seemed upset and angry. She asked Who are you? even though I had met with her a few days before. She was on the bedpan, which I did not realize at first. Given her preference not to talk with me at this time, I left. Exam Narrative Exam Narrative: Obese woman, wrapped in multiple blankets, in bed, cared for by nurse Karla Gonzalez. I did not do an exam. She was clearly irritated. Objective Objective Clinical Data: Vital Signs Temperature 97.7 F 05/29/19 03:00 Temperature Source Temporal Artery Scan 05/29/19 03:00 Pulse 81 05/29/19 07:01 Pulse Rhythm Regular 05/25/19 09:40 Pulse 83 05/29/19 07:01 Respiratory Rate 24 05/29/19 07:01 Respiratory Effort 05/29/19 03:00 Respiratory Depth Normal 05/29/19 03:00 Respiratory Pattern Normal 05/29/19 03:00 Blood Pressure 95/54 L 05/29/19 07:01 Blood Pressure Mean 62 05/29/19 07:01 Blood Pressure Position Supine 05/29/19 03:00 Pulse Oximetry 95 05/29/19 03:00 Oxygen Delivery Method Cpap 05/29/19 03:00 Oxygen Flow Rate 0 05/29/19 03:00 Fraction of Inspired Oxygen (FIO2) 21 05/26/19 13:00 Pain Level 0 05/29/19 03:00 Comment 05/25/19 00:05 Intake & Output 05/28/19 05/28/19 05/29/19 11:59 23:59 11:59 Intake Total 790 / 2895 2105 / 2895 410 / 410 Output Total 1200 / 2875 1675 / 2875 1950 / 1950 Balance -410 / 20 430 / 20 -1540 / -1540 Weight 236 lb 8.896 oz 234 lb 12.677 oz Intake: IV 550 / 1935 1385 / 1935 200 / 200 Oral 240 / 960 720 / 960 210 / 210 Output: Drainage 200 / 775 575 / 775 300 / 300 R abdomen biliary drain 200 / 775 575 / 775 300 / 300 Urine 1000 / 2100 1100 / 2100 1650 / 1650 Other: Urine Color Yellow Yellow Yellow Urine Appearance Clear Clear Clear Comment Gao patent draining clear yellow urine. Gao patent draining clear yellow urine. Gao patent draining clear yellow urine. Stool Occult Blood Negative Negative Stool Size Large Copious Stool Characteristics Soft Soft Pedraza Brown Laboratory Results WBC 3.91 k/cumm (4.4-10.8) L 05/28/19 06:30 RBC 3.39 m/cumm (4.00-5.20) L 05/28/19 06:30 Hgb 10.8 g/dL (12.0-15.5) L 05/28/19 06:30 Hct 36.0 % (36.0-46.0) 05/28/19 06:30 MCV 106.2 fL (80-95) H 05/28/19 06:30 MCH 31.9 pg (27.0-33.0) 05/28/19 06:30 MCHC 30.0 g/dL (32.0-36.0) L 05/28/19 06:30 RDW 14.0 % (11.7-14.6) 05/28/19 06:30 Plt Count 118 x1000/uL (130-400) L 05/28/19 06:30 MPV 10.9 fL (8.0-11.0) 05/28/19 06:30 Immature Gran % 0.3 05/28/19 06:30 67.2 05/28/19 06:30 Cancelled 05/24/19 04:55 17.4 05/28/19 06:30 Atypical Lymphs % Cancelled 05/24/19 04:55 5.6 05/28/19 06:30 9.0 05/28/19 06:30 0.5 05/28/19 06:30 Cancelled 05/24/19 04:55 Cancelled 05/24/19 04:55 Cancelled 05/24/19 04:55 Absolute Neutrophils 2.63 k/cumm (1.2-6.7) 05/28/19 06:30 Absolute Lymphocytes 0.68 k/cumm (1.2-3.4) L 05/28/19 06:30 Absolute Monocytes 0.22 k/cumm (0.11-0.7) 05/28/19 06:30 Absolute Eosinophils 0.35 k/cumm (0.0-0.7) 05/28/19 06:30 Absolute Basophils 0.02 k/cumm (0.0-0.2) 05/28/19 06:30 Nucleated RBCs Cancelled 05/24/19 04:55 Rbc morph reviewed 05/28/19 06:30 Cancelled 05/24/19 04:55 RBC Morphology See below 05/28/19 06:30 Present 05/28/19 06:30 1+ 05/28/19 06:30 Cancelled 05/24/19 04:55 Cancelled 05/24/19 04:55 1+ 05/28/19 06:30 Cancelled 05/24/19 04:55 2+ 05/28/19 06:30 Cancelled 05/24/19 04:55 Cancelled 05/24/19 04:55 Cancelled 05/24/19 04:55 Cancelled 05/24/19 04:55 Cancelled 05/24/19 04:55 Cancelled 05/24/19 04:55 Cancelled 05/24/19 04:55 Acanthocytes (Spur) Cancelled 05/24/19 04:55 Cancelled 05/24/19 04:55 PT 11.3 sec (9.3-11.0) H 05/24/19 06:15 INR 1.1 (0.9-1.1) 05/24/19 06:15 APTT 24.9 sec (21.0-31.4) 05/24/19 06:15 Sodium 145 mmol/L (136-145) 05/28/19 06:30 Potassium 4.0 mmol/L (3.5-5.1) 05/28/19 06:30 Chloride 114 mmol/L (98-107) H 05/28/19 06:30 Carbon Dioxide 27.1 mmol/L (21.0-32.0) 05/28/19 06:30 3.9 mmol/L (3-11) 05/28/19 06:30 BUN 5 mg/dL (7-18) L 05/28/19 06:30 0.51 mg/dL (0.55-1.02) L 05/28/19 06:30 >= 60.00 (mL/min/1.73m2) 05/28/19 06:30 Glucose 72 mg/dL (70-100) 05/28/19 06:30 1.4 mmol/l (0.6-1.4) 05/27/19 06:20 Calcium 7.9 mg/dL (8.5-10.1) L 05/28/19 06:30 Magnesium 1.6 mg/dL (1.8-2.4) L 05/28/19 06:30 0.5 mg/dL (0.2-1.0) 05/25/19 06:25 0.20 mg/dL (0.00-0.20) 05/25/19 06:25 AST 11 U/L (15-37) L 05/25/19 06:25 ALT 12 U/L (12-78) 05/25/19 06:25 124 U/L (46-116) H 05/25/19 06:25 < 0.05 ng/mL (0.00-0.06) 05/24/19 06:15 1.70 mg/dL (0.0-0.3) H 05/25/19 06:25 6.2 g/dL (6.4-8.2) L 05/25/19 06:25 2.3 g/dL (3.4-5.0) L 05/25/19 06:25 27 U/L (73-393) L 05/24/19 06:15 0.2 ng/mL 05/27/19 06:20 TSH 1.62 uIU/mL (0.36-3.74) 05/24/19 12:40 Free T4 1.38 ng/dL (0.76-1.46) 05/24/19 12:40 Yellow (Yellow) 05/24/19 03:25 Clear (Clear) 05/24/19 03:25 5.0 (5-8) 05/24/19 03:25 Ur Specific [place] 1.025 (1.005-1.025) 05/24/19 03:25 100 mg/dL (Negative) H 05/24/19 03:25 15 mg/dL (Negative) H 05/24/19 03:25 Small (Negative) H 05/24/19 03:25 Negative (Negative) 05/24/19 03:25 Small (Negative) H 05/24/19 03:25 0.2 EU/dL (Up TO 0.2) 05/24/19 03:25 Ur Leukocyte Esterase Small (Negative) H 05/24/19 03:25 0-2 (0-2) 05/24/19 03:25 5-10 HPF (0-5) 05/24/19 03:25 Ur Epithelial Cells Rare HPF (Negative) 05/24/19 03:25 Negative HPF (Negative) 05/24/19 03:25 Few HPF (Negative) 05/24/19 03:25 Negative LPF (Negative) 05/24/19 03:25 Negative (Negative) 05/24/19 03:25 Moderate yeast (Negative) 05/24/19 03:25 Ur Culture Indicated? Yes 05/24/19 03:25 Negative mg/dL (Negative) 05/24/19 03:25 Vancomycin Trough 24.4 ug/mL (10.0-20.0) H* 05/27/19 06:20
--- NOTE | 2019-05-28 08:23 | W.PM.PROGNOT ---
Date of Service Date of service: 05/28/19 Time of Service: 08:24 Assessment and Plan (1) Sepsis: Current visit: No Status: Acute Staph Auricularis in 1 bottle from blood cultures 05/24 - ?contaminant. Vancomycin resistant E. faecium 50,000-100,000 CFU in absence of symptoms and only weakly positive UA - likely colonization, but the patient did require pressors, and this is hard to ignore. Antibiotics are changed to linezolid (day 2)/aztreonam (day 5). Vancomycin d/c'ed after 4 days. Sertraline on hold while on linezolid. CXR from yesterday is negative officially. Consider stopping aztreonam tomorrow if procalcitonin normalizes. Repeat blood cultures are negative to date. Yesterday's episode of hypotension was likely due to excessive beta blockade rather than sepsis, given abscence of tachycardia during the episode yesterday. (2) HCAP (healthcare-associated pneumonia): Current visit: Yes Status: Acute As above (3) Hypotension: Current visit: No Status: Resolved Resume metoprolol at a lower dose while monitoring in the ICU. (4) STACEY (obstructive sleep apnea): Current visit: No Status: Chronic Provide CPAP. (5) Right heart failure with reduced right ventricular function: Current visit: No Status: Chronic Provide CPAP and carefully monitor volume status. (6) Atrial fibrillation: Current visit: No Status: Chronic In NSR now, HR in high 90's Resume lopressor at a decreased dose. (7) Diastolic heart failure: Current visit: No Status: Chronic D/c IVF, though I do not see clinical evidence of fluid overload today. (8) Depression: Current visit: No Status: Chronic Zoloft on hold while on linezolid. (9) Dehydration: Current visit: Yes Status: Resolved Clinically resolved (10) Acute kidney injury superimposed on chronic kidney disease: Current visit: Yes Status: Resolved Resolved. Initially, due to urinary retention, dehydration and sepsis. Monitor off of IVF On discharge, per my conversation with Dr Gutiérrez, the patient will keep her gao catheter. (11) DVT prophylaxis: Current visit: No Status: Acute heparin SC (12) Discharge planning issues: Current visit: No Status: Acute DNI per my conversation with the patient - awaiting discussion with Dr Dorado. On discharge, the patient is to leave with a gao catheter. Will need SNF on discharge Subjective Interval history since last seen: Tearful this morning, rocking the bed. Not cooperating with nursing. SBP's now up to 110's-120's. HR's 90-100's. Spent the night on CPAP, 96-98% on RA. With me, Prema is more interested in making a phone call than being examined or talking to me. Therefore, she is not permitting me to ask questions. I listened to her while she was on the phone, crying. She requested I resume her sertraline - I explained to her that it interacts with her antibiotics. She verbalized she did not want to be here anymore. Exam Narrative Exam Narrative: General: Anxious tearful female, nontoxic appearing, A&Ox3 HEENT: EOMI, MMM Cardiovascular: RRR, ?quiet FERMÍN Lungs: Diminished breath sounds B anteriorly Gastrointestinal: abdomen is soft, nontender, nondistended Genitourinary: has a gao Extremities: BLE lymphedema; wearing SCD's, no edema in the feet Objective Objective Clinical Data: Abnormal lab results 05/24/19 05/28/19 05/28/19 Range/Units 03:25 06:30 06:30 WBC 3.91 L (4.4-10.8) k/cumm RBC 3.39 L (4.00-5.20) m/cumm Hgb 10.8 L (12.0-15.5) g/dL MCV 106.2 H (80-95) fL MCHC 30.0 L (32.0-36.0) g/dL Plt Count 118 L (130-400) x1000/uL Absolute Lymphocytes 0.68 L (1.2-3.4) k/cumm Chloride 114 H (98-107) mmol/L BUN 5 L (7-18) mg/dL Creatinine 0.51 L (0.55-1.02) mg/dL Calcium 7.9 L (8.5-10.1) mg/dL Magnesium 1.6 L (1.8-2.4) mg/dL Urine Protein 100 H (Negative) mg/dL Urine Ketones 15 H (Negative) mg/dL Urine Blood Small H (Negative) Urine Bilirubin Small H (Negative) Ur Leukocyte Esterase Small H (Negative) Vital Signs Temperature 37.1 C 05/28/19 04:42 Temperature Source Temporal Artery Scan 05/28/19 04:42 Pulse 74 05/28/19 06:01 Pulse Rhythm Regular 05/25/19 09:40 Pulse 89 05/28/19 06:01 Respiratory Rate 28 H 05/28/19 06:01 Respiratory Effort Non-Labored 05/28/19 04:42 Respiratory Depth Normal 05/28/19 04:42 Respiratory Pattern Normal 05/28/19 04:42 Blood Pressure 85/47 L 05/28/19 06:01 Blood Pressure Mean 56 05/28/19 06:01 Blood Pressure Position Supine 05/27/19 20:09 Pulse Oximetry 96 05/28/19 06:01 Oxygen Delivery Method Cpap 05/28/19 04:42 Oxygen Flow Rate 0 05/28/19 00:18 Fraction of Inspired Oxygen (FIO2) 21 05/26/19 13:00 Pain Level 0 05/28/19 04:42 Comment 05/25/19 00:05 Intake & Output 05/27/19 05/27/19 05/28/19 11:59 23:59 11:59 Intake Total 3273.843 / 5827.400 2553.557 / 5827.400 Output Total 975 / 3275 2300 / 3275 1200 / 1200 Balance 2298.843 / 2552.400 253.557 / 2552.400 -1200 / -1200 Weight 106 kg 107.3 kg Intake: IV 2573.843 / 4210.400 1636.557 / 4210.400 Oral 200 / 917 717 / 917 Injectate 500 / 700 200 / 700 R abdomen biliary drain 500 / 700 200 / 700 Output: Drainage 275 / 275 200 / 200 R abdomen biliary drain 275 / 275 200 / 200 Urine 725 / 2200 1475 / 2200 1000 / 1000 Stool 250 / 800 550 / 800 Other: Urine Color Straw Yellow Yellow Urine Appearance Cloudy Clear Clear Comment gao in place and patent. gao patent to gravity drainage bag Gao draining. Stool Occult Blood Negative Stool Characteristics Soft Liquid Laboratory Results WBC 3.91 k/cumm (4.4-10.8) L 05/28/19 06:30 RBC 3.39 m/cumm (4.00-5.20) L 05/28/19 06:30 Hgb 10.8 g/dL (12.0-15.5) L 05/28/19 06:30 Hct 36.0 % (36.0-46.0) 05/28/19 06:30 MCV 106.2 fL (80-95) H 05/28/19 06:30 MCH 31.9 pg (27.0-33.0) 05/28/19 06:30 MCHC 30.0 g/dL (32.0-36.0) L 05/28/19 06:30 RDW 14.0 % (11.7-14.6) 05/28/19 06:30 Plt Count 118 x1000/uL (130-400) L 05/28/19 06:30 MPV 10.9 fL (8.0-11.0) 05/28/19 06:30 Immature Gran % 0.3 05/28/19 06:30 67.2 05/28/19 06:30 Cancelled 05/24/19 04:55 17.4 05/28/19 06:30 Atypical Lymphs % Cancelled 05/24/19 04:55 5.6 05/28/19 06:30 9.0 05/28/19 06:30 0.5 05/28/19 06:30 Cancelled 05/24/19 04:55 Cancelled 05/24/19 04:55 Cancelled 05/24/19 04:55 Absolute Neutrophils 2.63 k/cumm (1.2-6.7) 05/28/19 06:30 Absolute Lymphocytes 0.68 k/cumm (1.2-3.4) L 05/28/19 06:30 Absolute Monocytes 0.22 k/cumm (0.11-0.7) 05/28/19 06:30 Absolute Eosinophils 0.35 k/cumm (0.0-0.7) 05/28/19 06:30 Absolute Basophils 0.02 k/cumm (0.0-0.2) 05/28/19 06:30 Nucleated RBCs Cancelled 05/24/19 04:55 Rbc morph reviewed 05/28/19 06:30 Cancelled 05/24/19 04:55 RBC Morphology See below 05/28/19 06:30 Present 05/28/19 06:30 1+ 05/28/19 06:30 Cancelled 05/24/19 04:55 Cancelled 05/24/19 04:55 1+ 05/28/19 06:30 Cancelled 05/24/19 04:55 2+ 05/28/19 06:30 Cancelled 05/24/19 04:55 Cancelled 05/24/19 04:55 Cancelled 05/24/19 04:55 Cancelled 05/24/19 04:55 Cancelled 05/24/19 04:55 Cancelled 05/24/19 04:55 Cancelled 05/24/19 04:55 Acanthocytes (Spur) Cancelled 05/24/19 04:55 Cancelled 05/24/19 04:55 PT 11.3 sec (9.3-11.0) H 05/24/19 06:15 INR 1.1 (0.9-1.1) 05/24/19 06:15 APTT 24.9 sec (21.0-31.4) 05/24/19 06:15 Sodium 145 mmol/L (136-145) 05/28/19 06:30 Potassium 4.0 mmol/L (3.5-5.1) 05/28/19 06:30 Chloride 114 mmol/L (98-107) H 05/28/19 06:30 Carbon Dioxide 27.1 mmol/L (21.0-32.0) 05/28/19 06:30 3.9 mmol/L (3-11) 05/28/19 06:30 BUN 5 mg/dL (7-18) L 05/28/19 06:30 0.51 mg/dL (0.55-1.02) L 05/28/19 06:30 >= 60.00 (mL/min/1.73m2) 05/28/19 06:30 Glucose 72 mg/dL (70-100) 05/28/19 06:30 1.4 mmol/l (0.6-1.4) 05/27/19 06:20 Calcium 7.9 mg/dL (8.5-10.1) L 05/28/19 06:30 Magnesium 1.6 mg/dL (1.8-2.4) L 05/28/19 06:30 0.5 mg/dL (0.2-1.0) 05/25/19 06:25 0.20 mg/dL (0.00-0.20) 05/25/19 06:25 AST 11 U/L (15-37) L 05/25/19 06:25 ALT 12 U/L (12-78) 05/25/19 06:25 124 U/L (46-116) H 05/25/19 06:25 < 0.05 ng/mL (0.00-0.06) 05/24/19 06:15 1.70 mg/dL (0.0-0.3) H 05/25/19 06:25 6.2 g/dL (6.4-8.2) L 05/25/19 06:25 2.3 g/dL (3.4-5.0) L 05/25/19 06:25 27 U/L (73-393) L 05/24/19 06:15 0.2 ng/mL 05/27/19 06:20 TSH 1.62 uIU/mL (0.36-3.74) 05/24/19 12:40 Free T4 1.38 ng/dL (0.76-1.46) 05/24/19 12:40 Yellow (Yellow) 05/24/19 03:25 Clear (Clear) 05/24/19 03:25 5.0 (5-8) 05/24/19 03:25 Ur Specific [place] 1.025 (1.005-1.025) 05/24/19 03:25 100 mg/dL (Negative) H 05/24/19 03:25 15 mg/dL (Negative) H 05/24/19 03:25 Small (Negative) H 05/24/19 03:25 Negative (Negative) 05/24/19 03:25 Small (Negative) H 05/24/19 03:25 0.2 EU/dL (Up TO 0.2) 05/24/19 03:25 Ur Leukocyte Esterase Small (Negative) H 05/24/19 03:25 0-2 (0-2) 05/24/19 03:25 5-10 HPF (0-5) 05/24/19 03:25 Ur Epithelial Cells Rare HPF (Negative) 05/24/19 03:25 Negative HPF (Negative) 05/24/19 03:25 Few HPF (Negative) 05/24/19 03:25 Negative LPF (Negative) 05/24/19 03:25 Negative (Negative) 05/24/19 03:25 Moderate yeast (Negative) 05/24/19 03:25 Ur Culture Indicated? Yes 05/24/19 03:25 Negative mg/dL (Negative) 05/24/19 03:25 Vancomycin Trough 24.4 ug/mL (10.0-20.0) H* 05/27/19 06:20 Urine C&S 05/18/19, 05/24/19 - E. faecium, vancomycin resistant. 50,000-100,000 CFU on 05/24/19
--- NOTE | 2019-05-28 08:39 | OT.INNT ---
Date of service: 05/28/19 Time of Service: 08:20 Occupational Therapy Notes 05/28/19 OT went in to see pt who was sitting in bed with her hat over her eyes rocking side to side in the bed. Pt refused OT services reporting that I am not talking to anyone right now. If any questions were asked to pt she would not verbally respond after that. Due to pts multiple refusals OT is placing pt on hold from OT services for today. If pt is still admitted after the , OT will resume OT services on Friday. Adriana Zaragoza, OTR/[facility]
[2019-05-28] MEDS: Ascorbic Acid 500 MG TAB PO ×2 (09:01→21:07)
[2019-05-28] MEDS: Loperamide 2 MG CAP PO ×3 (09:01→21:07)
[2019-05-28] MEDS: Anastrozole 1 MG TAB PO (09:01)
[2019-05-28] MEDS: Ferrous Sulfate 325 MG TAB PO (09:01)
[2019-05-28] MEDS: Nystatin POWDER 60 GM JAR TP ×3 (09:01→20:00)
[2019-05-28] MEDS: Methylphenidate 10 MG TAB PO ×2 (09:01→14:52)
[2019-05-28] MEDS: Pantoprazole 40 MG TABCR PO (09:01)
[2019-05-28] MEDS: Lactobacillus Acidophilus CAP 1 CAP PO ×3 (09:01→21:07)
[2019-05-28] MEDS: Calcium 600mg/Vit D 200U TAB 2 TAB PO (09:01)
[2019-05-28] MEDS: Glucosamine 500 MG CAP PO ×2 (09:01→21:08)
[2019-05-28] MEDS: Triamcinolone 0.1% CR 15 GM TUBE TP ×2 (09:02→20:00)
[2019-05-28] MEDS: MAGNESIUM SULFATE 2 GM/50 ML BAG IVPB (09:02)
[2019-05-28] MEDS: LORazepam 0.5 MG TAB PO ×2 (09:07→21:27)
[2019-05-28] MEDS: Budesonide/Formoterol 160/4.5 6 GM 60 PUFF INH IH ×2 (09:34→21:24)
--- NOTE | 2019-05-28 09:37 | RESPIRATORY ---
pt tolerated MDi symbicort, Bs clear and diminihsed bilat with sats on room airs of 98% and HR of 97
--- NOTE | 2019-05-28 10:59 | PT.INNT ---
Date of service: 05/28/19 Time of Service: 11:00 PT Notes 05/28/19 Patient refused morning PT session, stating no! Leave me alone, I just want to . This was reported to nsg and care management. Will attempt to resume PT services this afternoon.
[2019-05-28] MEDS: Metoprolol 12.5 MG TAB PO (12:39)
--- NOTE | 2019-05-28 12:43 | PT.INDS ---
Date of service: 05/28/19 Time of Service: 12:43 PT Notes Inpatient Physical Therapy Discharge Summary Dates: 05/28/2019 Dates of Service: 05/08/2019 through 05/28/2019 This is a clinical summary of care provided on the duration of dates listed above. No charge was made in the completion of this documentation. Referring Doctor: Francheska Charles MD PT Orders: PT CONSULT: Eval/treat Precautions: Fall. Standard. Non-ambulatory.. Patient Profile/Admitting Diagnosis: Patient is a 63-year-old female with past medical history significant for cirrhosis of liver, atrial fibrillation, attention deficit disorder, hypothyroidism and obesity who presented to the ED on 05/24/2019 with abdominal pain and nausea and some subjective complaint of feeling sick for 1 week associated with 2 previous ED visits with same symptoms but with unremarkable CT of the abdomen and pelvis. Subjective: Patient does not want to continue with skilled PT services as she states that she does not have the energy nor the interest for it. Per FIELD REPRESENTATIVES DIRECTOR report, patient has refused services and told her to go away. Objective: General Observation: NT Mental Status: NT Pain: NT ROM: Right Upper Extremity: Shoulder Flexion WFL. Shoulder abduction WFL. Elbow flexion WFL. Wrist flexion WFL. Functional opening and closing of hand WFL. Left Upper Extremity: Shoulder Flexion WFL. Shoulder abduction WFL. Elbow flexion WFL. Wrist flexion WFL. Functional opening and closing of hand WFL. Right Lower Extremity: Hip flexion allows up to 60 degrees. Hip abduction WFL. Knee flexion allows up to 40. Ankle dorsiflexion 10 degrees froma fully plantarflexed position.. Ankle plantarflexion WFL. Left Lower Extremity: Hip flexion allows up to 40 degrees. Hip abduction WFL. Knee flexion allows up to 30. Ankle dorsiflexion 10 degrees froma fully plantarflexed position.. Ankle plantarflexion WFL. Strength: Right Upper Extremity: Shoulder flexors 4-/5. Shoulder abductors 4-/5. Elbow flexors 4-/5. Elbow extensors 4-/5. Thread Machine Operator strong. Left Upper Extremity: Shoulder flexors 4-/5. Shoulder abductors 4-/5. Elbow flexors 4-/5. Elbow extensors 4-/5. Thread Machine Operator strong. Right Lower Extremity: Hip flexors 3-/5. Hip abductors 3-/5. Knee flexors 3-/5. Knee extensors 3-/5. Ankle dorsiflexors 3-/5. Ankle plantarflexors 3-/5. Left Lower Extremity:Hip flexors 3-/5. Hip abductors 3-/5. Knee flexors 3-/5. Knee extensors 3-/5. Ankle dorsiflexors 3-/5. Ankle plantarflexors 3-/5. Sensation: Intact as to pain and pressure on bilateral lower extremities. Bed Mobility/Transfers: Rolling moderate assist Supine to sit maximum assist Sit to supine maximum assist Sit to stand not tested. Patient not ambulatory. Stand to sit not tested. Patient not ambulatory. Bed to chair not tested. Patient not ambulatory. Chair to bed not tested. Patient not ambulatory. Gait: Patient is non-ambulatory. Unable to test. Balance: Static Sitting: Poor Dynamic Sitting: Poor Static Standing: Unable Dynamic Standing: Unable Special Tests: Mobility Limitations Standardized Measure [facility] AM-PAC 6 clicks Basic Mobility Inpatient Short Form: Raw Score: 11 CMS Score: 73% deficit Informed Consent/Education: Patient instructed in purpose of PT consult and plan of care. Assessment: Patient refused continued skilled PT services at this time. She however continues to present with clinical signs and symptoms consistent with current/admitting diagnoses that have resulted to mobility limitations, gait instability, generalized weakness, and impairment of motor control as demonstrated by the following impairment level findings: 1. Decreased strength to B LE major muscle groups 2. Impaired sitting/standing balance 3. Impaired activity tolerance 4. Limitation of joint range of motion in BLE joints Impairments are contributing to the following functional limitations: 1. Dependent bed mobility skills 2. Increased dependence with transfers 3. Increase completion time for mobility ADL performance 4. Increased fall risk Goals: Goals X1 week 1. Supine-Sit independent NOT MET 2. Sit-Supine independent NOT MET 3. Sit-Stand independent NOT MET 4. Stand-Sit independent NOT MET 5. Bed-Chair independent NOT MET 6. Chair-Bed independent NOT MET 7. Independent transfers using stand pivot technique while using a walker NOT MET DISCHARGE RECOMMENDATIONS: Patient will benefit from snf facility placement in order to progress mobility level, strength, and balance in preparation for a safe discharge to home. TREATMENT CODE/TIME: FL. Thank you very much for this referral. Yajaira Harrison PT, DPT, CLT [facility]
--- NOTE | 2019-05-28 15:08 | CHAPLAIN ---
I visited with Prema yesterday afternoon (06/27), yesterday evening and again this morning. During all three visits she was at times tearful and at other times engaged in conversation. She lists off the things that are being taken away from her, including her cat, her tv and her home. She said she doesn't want to go to a detention, but states that what her family wants her to do. Prema talked about her son and granddaughter and he hopes to see them, but they live 10 hours away in [place], and are not likely to visit, she said. Prema clearly identifies that she does not have control over much in her life right now and states that this isn't fair. She doesn't identify any positives in her life. She likes watching [employer] DVDs and someone brought in her collection for her. Before I left this morning, Prema told me that she wanted more pain medicine, and wanted to speak with her nurse. Karla Gonzalez RN, was headed into Prema's room when I left.
[2019-05-28] MEDS: oxyCODONE 5 mg/Acetaminophen 325 mg TAB 1 TAB PO ×2 (16:15→21:28)
[2019-05-28] MEDS: Normal Saline 500 ML 1000 ML IV (16:36)
--- NOTE | 2019-05-28 16:53 | CMPROGNOTE_ITS ---
- If Service Date Differs Date of service: 05/28/19 Time of Service: 16:53 Care Management Progress Note S/O: Prema is tearful at the time of the visit she describe loss of control r/t leaving her home she states all she wants to do is return home. She process through her loss of control and grief r/t loss with CM. She would like to return to [facility] if no other options she has declined to allow referrals to any other LTC facilities at this time. Her son is going to be here on Friday and CM will have a family meeting with both patient and son present. A:Prema is 63 year old female admitted with pneumonia P:[facility] placement [facility] care, referral sent to [facility] declines and [facility] pending. Prema will remain at [facility] until a bed for LTC is identified and she is transferred vs home with resumption of community support services. Ambulance transfer at time of discharge CM will coordinator.
[2019-05-28] MEDS: clonazePAM 1 MG TAB 2 MG PO (21:09)
[2019-05-28] MEDS: Cyclobenzaprine 10 MG TAB 20 MG PO (21:16)
[2019-05-29] VITALS (46 sets, daily range): BP systolic 81–110; BP diastolic 48–83; PULSE 79–138; RESP 11–29; TEMP 36.4–37.6; O2SAT 95–98
[2019-05-29] MEDS: AZTREONAM 2,000 MG in Normal Saline 100 ML 200 MG IVPB ×2 (02:15→09:47)
[2019-05-29] MEDS: Heparin 5,000 UNITS/ML VIAL 5000 UNITS SC ×3 (04:52→20:04)
[2019-05-29] MEDS: LINEZOLID 600 MG/300 ML BAG 300 MG IVPB (05:39)
--- NOTE | 2019-05-29 08:07 | PDOC.CMPRO ---
- If Service Date Differs Date of service: 05/29/19 Time of Service: 08:07 Care Management Progress Note S/O: No change in status today she remains ICU level of care. CM to continue to support discharge planning and disposition. A:Prema is 63 year old female admitted with pneumonia currently being treated with IV antibiotics. P:penitentiary placement [facility] care, referral sent to [facility] declines and [facility] pending. Prema will remain at [facility] until a bed for LTC is identified and she is transferred vs home with resumption of community support services. Ambulance transfer at time of discharge CM will coordinator.
[2019-05-29] MEDS: Loperamide 2 MG CAP PO ×3 (08:38→20:03)
[2019-05-29] MEDS: Cyanocobalamin 100 MCG TABLET PO (08:38)
[2019-05-29] MEDS: Lactobacillus Acidophilus CAP 1 CAP PO ×3 (08:38→21:02)
[2019-05-29] MEDS: Cyclobenzaprine 10 MG TAB 20 MG PO ×2 (08:38→20:01)
[2019-05-29] MEDS: Pantoprazole 40 MG TABCR PO (08:38)
[2019-05-29] MEDS: Ferrous Sulfate 325 MG TAB PO (08:38)
[2019-05-29] MEDS: Glucosamine 500 MG CAP PO ×2 (08:39→20:02)
[2019-05-29] MEDS: Methylphenidate 10 MG TAB PO ×2 (08:39→14:35)
[2019-05-29] MEDS: Anastrozole 1 MG TAB PO (08:39)
[2019-05-29] MEDS: Folic Acid 1 MG TAB 2 MG PO (08:39)
[2019-05-29] MEDS: Ascorbic Acid 500 MG TAB PO ×2 (08:39→20:02)
[2019-05-29 09:01] LABS: Abs Immature Grans 0.01 k/cumm (0.0-0.09); Absolute Basophil Count 0.02 k/cumm (0.0-0.2); Absolute Eosinophil Count 0.32 k/cumm (0.0-0.7); Absolute Lymphocyte Count 0.86 k/cumm (1.2-3.4); Absolute Monocyte Count 0.24 k/cumm (0.11-0.7); Absolute Neutrophil Count 3.57 k/cumm (1.2-6.7); Basophils % 0.4; Eosinophils % 6.4; HCT 37.7 % (36.0-46.0); HGB 11.4 g/dL (12.0-15.5); Immature Grans % 0.2; Lymphocytes % 17.1; Mean Corp. HGB Concentration 30.2 g/dL (32.0-36.0); Mean Corpuscular Hemoglobin 32.2 pg (27.0-33.0); Mean Corpuscular Volume 106.5 fL (80-95); Mean Platelet Volume 10.5 fL (8.0-11.0); Monocytes % 4.8; Neutrophils % 71.1; Platelet Count 127 x1000/uL (130-400); RBC 3.54 m/cumm (4.00-5.20); White Blood Cell Count 5.02 k/cumm (4.4-10.8)
[2019-05-29 09:12] LABS: Anion Gap 4.5 mmol/L (3-11); BUN 6 mg/dL (7-18); CO2 27.5 mmol/L (21.0-32.0); CREATININE 0.56 mg/dL (0.55-1.02); Calcium 7.8 mg/dL (8.5-10.1); Chloride 110 mmol/L (98-107); Glucose 73 mg/dL (70-100); Magnesium 1.5 mg/dL (1.8-2.4); Potassium 3.8 mmol/L (3.5-5.1); Sodium 142 mmol/L (136-145)
[2019-05-29 09:33] LABS: Procalcitonin < 0.1 ng/mL
[2019-05-29] MEDS: Normal Saline Flush 10 ML SYR IVP (09:48)
[2019-05-29] MEDS: Budesonide/Formoterol 160/4.5 6 GM 60 PUFF INH IH ×2 (10:42→19:58)
[2019-05-29] MEDS: Nystatin POWDER 60 GM JAR TP ×3 (10:52→19:57)
[2019-05-29] MEDS: Triamcinolone 0.1% CR 15 GM TUBE TP ×2 (10:52→21:02)
[2019-05-29] MEDS: Potassium Chloride 20 MEQ TABCR PO (10:54)
[2019-05-29] MEDS: MAGNESIUM SULFATE 2 GM/50 ML BAG IVPB (10:54)
[2019-05-29] MEDS: LORazepam 0.5 MG TAB PO ×3 (12:48→21:10)
[2019-05-29] MEDS: oxyCODONE 5 mg/Acetaminophen 325 mg TAB 1 TAB PO ×2 (12:49→21:12)
--- NOTE | 2019-05-29 18:33 | PGE_ITS ---
Date of Service Date of service: 05/29/19 Time of Service: 18:33 Assessment and Plan (1) Sepsis: Current visit: No Status: Acute Diagnosis of sepsis based on initial presentation with Leukocytosis, Tachycardia (although with chronicity to this), JERSEY, and elevated Lactic Acid. Patient was afebrile however. Etiology secondary to likely Pulmonary Source for infection. - Blood Cultures from 05/24 & 05/26 remain negative (1 bottle with likely contaminant). - Urinalysis not overtly convincing for UTI, with cultures showing <100,000 CFU of VRE, clinically asymptomatic. Very likely colonization. Patient did receive 3 days of Linezolid. - Patient received a total of 4 days of Vancomycin, 3 days of Linezolid, and 5 days of Aztreonam. Procalcitonin decreased from 0.4 to undetectable, and antibiotics were discontinued. - Sepsis appears resolved. Patient is chronically hypotensive and tachycardic (BB has been on hold). No fever and lack of leukocytosis, and patient appears non-toxic. Continue to hold off on further antibiotics. (2) HCAP (healthcare-associated pneumonia): Current visit: Yes Status: Acute Treatment as above. Sputum culture + for MSSA. (3) STACEY (obstructive sleep apnea): Current visit: No Status: Chronic Continue CPAP. (4) Right heart failure with reduced right ventricular function: Current visit: No Status: Chronic Noted. Monitor volume status. (5) Tachycardia: Current visit: No Status: Acute History of both Paroxysmal Afib and SVTs - patient's blood pressure has been intolerant of resumption of BB therapy, which has remained on hold for some time. Will initiate low dose Diltiazem, and monitor blood pressures carefully. (6) Depression: Current visit: No Status: Chronic History of Anxiety, Depression, and Borderline Personality Disorder. Continue home regimen of Clonazepam, resume SSRI. Also on prn Lorazepam here in the hospital. (7) DVT prophylaxis: Current visit: No Status: Acute Heparin SC. Subjective Interval history since last seen: 62 year old woman with a prior medical history of ascending cholangitis with septic shock s/p biliary drain that remains in place, admitted from [facility] Emergency Department on 05/24 with a diagnosis of Pneumonia. Ms. Watson has a history of Ascending Cholangitis, treated at [facility], with evidence of septic shock s/p biliary drain that still remains in place and was last changed on 04/28/2019. She also has a Past Medical History of Borderline Personality Disorder, Morbid Obesity, Breast Ca, CAD, COPD on Home O2, STACEY, PHTN with severe TR, Chronic Diastolic and Right sided CHF, and GERD. She has been noted to have PSVTs in the past, and has Paroxysmal Afib as a prior history as well, not anticoagulated. Patient presented to [facility] ED with complaints of nausea and vomiting, epigastric pain, and malaise, found to be hypotensive with imaging showing evidence of a right sided infiltrate. The CT of her chest and abdomen also showed a stable left pleural effusion, stable opacity in the left lung apex likely representing scarring, and stable fluid collect in the left chest wall. Her percutaneous biliary drain was noted to be stable in location. She was treated with aggressive IVFs and broad-spectrum antibiotics, and referred for admission. Exam Narrative Exam Narrative: General: Patient appears comfortable, AAOX3, NAD Neck: Supple CV: Regular, nontachycardic, S1S2, No rubs, murmurs, or gallops. Pulmonary: Clear to auscultation bilaterally, no crackles, wheezing, or rhonchi on exam limited by body habitus Abdomen: + Bowel Sounds, soft, nontender, nondistended Vascular: B/l LE Lymphedema. : Gao in place Psych: Depressed mood and affect. Objective Objective Clinical Data: Abnormal lab results 05/29/19 05/29/19 Range/Units 08:25 08:25 RBC 3.54 L (4.00-5.20) m/cumm Hgb 11.4 L (12.0-15.5) g/dL MCV 106.5 H (80-95) fL MCHC 30.2 L (32.0-36.0) g/dL Plt Count 127 L (130-400) x1000/uL Absolute Lymphocytes 0.86 L (1.2-3.4) k/cumm Chloride 110 H (98-107) mmol/L BUN 6 L (7-18) mg/dL Calcium 7.8 L (8.5-10.1) mg/dL Magnesium 1.5 L (1.8-2.4) mg/dL Vital Signs Temperature 36.6 C 05/29/19 17:13 Temperature Source Temporal Artery Scan 05/29/19 17:13 Pulse 115 H 05/29/19 17:18 Pulse Rhythm Regular 05/25/19 09:40 Pulse 109 H 05/29/19 17:18 Respiratory Rate 26 H 05/29/19 17:18 Respiratory Effort 05/29/19 17:13 Respiratory Depth Normal 05/29/19 17:13 Respiratory Pattern Normal 05/29/19 17:13 Blood Pressure 89/64 L 05/29/19 17:18 Blood Pressure Mean 70 05/29/19 17:18 Blood Pressure Position Supine 05/29/19 17:13 Pulse Oximetry 95 05/29/19 15:00 Oxygen Delivery Method Room Air 05/29/19 17:13 Oxygen Flow Rate 0 05/29/19 17:13 Fraction of Inspired Oxygen (FIO2) 21 05/26/19 13:00 Pain Level 0 05/29/19 17:13 Comment 05/25/19 00:05 Intake & Output 05/28/19 05/29/19 05/29/19 23:59 11:59 23:59 Intake Total 2105 / 2895 1090 / 1690 600 / 1690 Output Total 1675 / 2875 1950 / 2975 1025 / 2975 Balance 430 / 20 -860 / -1285 -425 / -1285 Weight 106.5 kg Intake: IV 1385 / 1935 530 / 690 160 / 690 Oral 720 / 960 560 / 1000 440 / 1000 Output: Drainage 575 / 775 300 / 600 300 / 600 R abdomen biliary drain 575 / 775 300 / 600 300 / 600 Urine 1100 / 2100 1650 / 2375 725 / 2375 Other: Urine Color Yellow Yellow Yellow Urine Appearance Clear Clear Clear Comment Gao patent draining clear yellow urine. Gao patent draining clear yellow urine. Gao patent draining clear yellow urine. Stool Occult Blood Negative Negative Stool Size Copious Large Stool Characteristics Soft Soft Brown Brown Laboratory Results WBC 5.02 k/cumm (4.4-10.8) 05/29/19 08:25 RBC 3.54 m/cumm (4.00-5.20) L 05/29/19 08:25 Hgb 11.4 g/dL (12.0-15.5) L 05/29/19 08:25 Hct 37.7 % (36.0-46.0) 05/29/19 08:25 MCV 106.5 fL (80-95) H 05/29/19 08:25 MCH 32.2 pg (27.0-33.0) 05/29/19 08:25 MCHC 30.2 g/dL (32.0-36.0) L 05/29/19 08:25 RDW 14.0 % (11.7-14.6) 05/29/19 08:25 Plt Count 127 x1000/uL (130-400) L 05/29/19 08:25 MPV 10.5 fL (8.0-11.0) 05/29/19 08:25 Immature Gran % 0.2 05/29/19 08:25 71.1 05/29/19 08:25 Cancelled 05/24/19 04:55 17.1 05/29/19 08:25 Atypical Lymphs % Cancelled 05/24/19 04:55 4.8 05/29/19 08:25 6.4 05/29/19 08:25 0.4 05/29/19 08:25 Cancelled 05/24/19 04:55 Cancelled 05/24/19 04:55 Cancelled 05/24/19 04:55 Absolute Neutrophils 3.57 k/cumm (1.2-6.7) 05/29/19 08:25 Absolute Lymphocytes 0.86 k/cumm (1.2-3.4) L 05/29/19 08:25 Absolute Monocytes 0.24 k/cumm (0.11-0.7) 05/29/19 08:25 Absolute Eosinophils 0.32 k/cumm (0.0-0.7) 05/29/19 08:25 Absolute Basophils 0.02 k/cumm (0.0-0.2) 05/29/19 08:25 Nucleated RBCs Cancelled 05/24/19 04:55 Rbc morph reviewed 05/28/19 06:30 Cancelled 05/24/19 04:55 RBC Morphology See below 05/28/19 06:30 Present 05/28/19 06:30 1+ 05/28/19 06:30 Cancelled 05/24/19 04:55 Cancelled 05/24/19 04:55 1+ 05/28/19 06:30 Cancelled 05/24/19 04:55 2+ 05/28/19 06:30 Cancelled 05/24/19 04:55 Cancelled 05/24/19 04:55 Cancelled 05/24/19 04:55 Cancelled 05/24/19 04:55 Cancelled 05/24/19 04:55 Cancelled 05/24/19 04:55 Cancelled 05/24/19 04:55 Acanthocytes (Spur) Cancelled 05/24/19 04:55 Cancelled 05/24/19 04:55 PT 11.3 sec (9.3-11.0) H 05/24/19 06:15 INR 1.1 (0.9-1.1) 05/24/19 06:15 APTT 24.9 sec (21.0-31.4) 05/24/19 06:15 Sodium 142 mmol/L (136-145) 05/29/19 08:25 Potassium 3.8 mmol/L (3.5-5.1) 05/29/19 08:25 Chloride 110 mmol/L (98-107) H 05/29/19 08:25 Carbon Dioxide 27.5 mmol/L (21.0-32.0) 05/29/19 08:25 4.5 mmol/L (3-11) 05/29/19 08:25 BUN 6 mg/dL (7-18) L 05/29/19 08:25 0.56 mg/dL (0.55-1.02) 05/29/19 08:25 >= 60.00 (mL/min/1.73m2) 05/29/19 08:25 Glucose 73 mg/dL (70-100) 05/29/19 08:25 1.4 mmol/l (0.6-1.4) 05/27/19 06:20 Calcium 7.8 mg/dL (8.5-10.1) L 05/29/19 08:25 Magnesium 1.5 mg/dL (1.8-2.4) L 05/29/19 08:25 0.5 mg/dL (0.2-1.0) 05/25/19 06:25 0.20 mg/dL (0.00-0.20) 05/25/19 06:25 AST 11 U/L (15-37) L 05/25/19 06:25 ALT 12 U/L (12-78) 05/25/19 06:25 124 U/L (46-116) H 05/25/19 06:25 < 0.05 ng/mL (0.00-0.06) 05/24/19 06:15 1.70 mg/dL (0.0-0.3) H 05/25/19 06:25 6.2 g/dL (6.4-8.2) L 05/25/19 06:25 2.3 g/dL (3.4-5.0) L 05/25/19 06:25 27 U/L (73-393) L 05/24/19 06:15 < 0.1 ng/mL 05/29/19 08:25 TSH 1.62 uIU/mL (0.36-3.74) 05/24/19 12:40 Free T4 1.38 ng/dL (0.76-1.46) 05/24/19 12:40 Yellow (Yellow) 05/24/19 03:25 Clear (Clear) 05/24/19 03:25 5.0 (5-8) 05/24/19 03:25 Ur Specific Weed 1.025 (1.005-1.025) 05/24/19 03:25 100 mg/dL (Negative) H 05/24/19 03:25 15 mg/dL (Negative) H 05/24/19 03:25 Small (Negative) H 05/24/19 03:25 Negative (Negative) 05/24/19 03:25 Small (Negative) H 05/24/19 03:25 0.2 EU/dL (Up TO 0.2) 05/24/19 03:25 Ur Leukocyte Esterase Small (Negative) H 05/24/19 03:25 0-2 (0-2) 05/24/19 03:25 5-10 HPF (0-5) 05/24/19 03:25 Ur Epithelial Cells Rare HPF (Negative) 05/24/19 03:25 Negative HPF (Negative) 05/24/19 03:25 Few HPF (Negative) 05/24/19 03:25 Negative LPF (Negative) 05/24/19 03:25 Negative (Negative) 05/24/19 03:25 Moderate yeast (Negative) 05/24/19 03:25 Ur Culture Indicated? Yes 05/24/19 03:25 Negative mg/dL (Negative) 05/24/19 03:25 Vancomycin Trough 24.4 ug/mL (10.0-20.0) H* 05/27/19 06:20
[2019-05-29] MEDS: dilTIAZem 30 MG TAB 15 MG PO (19:58)
[2019-05-29] MEDS: clonazePAM 1 MG TAB 2 MG PO (21:09)
[2019-05-29] MEDS: Zolpidem 5 MG TAB PO (21:10)
[2019-05-30] VITALS (37 sets, daily range): BP systolic 80–145; BP diastolic 26–125; PULSE 67–135; RESP 14–31; TEMP 36.3–37.5; O2SAT 93–99
[2019-05-30] MEDS: Heparin 5,000 UNITS/ML VIAL 5000 UNITS SC ×3 (03:57→20:28)
[2019-05-30 07:42] LABS: Abs Immature Grans 0.01 k/cumm (0.0-0.09); Absolute Basophil Count 0.04 k/cumm (0.0-0.2); Absolute Eosinophil Count 0.29 k/cumm (0.0-0.7); Absolute Lymphocyte Count 0.94 k/cumm (1.2-3.4); Absolute Monocyte Count 0.31 k/cumm (0.11-0.7); Absolute Neutrophil Count 3.52 k/cumm (1.2-6.7); Basophils % 0.8; Eosinophils % 5.7; HCT 39.7 % (36.0-46.0); HGB 12.2 g/dL (12.0-15.5); Immature Grans % 0.2; Lymphocytes % 18.4; Mean Corp. HGB Concentration 30.7 g/dL (32.0-36.0); Mean Corpuscular Hemoglobin 32.4 pg (27.0-33.0); Mean Corpuscular Volume 105.6 fL (80-95); Mean Platelet Volume 10.6 fL (8.0-11.0); Monocytes % 6.1; Neutrophils % 68.8; Platelet Count 123 x1000/uL (130-400); RBC 3.76 m/cumm (4.00-5.20); RBC Distribution Width 14.2 % (11.7-14.6); White Blood Cell Count 5.11 k/cumm (4.4-10.8)
[2019-05-30 08:15] LABS: Anion Gap 3.8 mmol/L (3-11); BUN 7 mg/dL (7-18); CO2 28.2 mmol/L (21.0-32.0); CREATININE 0.55 mg/dL (0.55-1.02); Calcium 8.4 mg/dL (8.5-10.1); Chloride 110 mmol/L (98-107); Glucose 73 mg/dL (70-100); Magnesium 1.7 mg/dL (1.8-2.4); Potassium 4.3 mmol/L (3.5-5.1); Sodium 142 mmol/L (136-145)
[2019-05-30] MEDS: Magnesium Oxide 400 MG TAB PO (10:01)
[2019-05-30] MEDS: Lactobacillus Acidophilus CAP 1 CAP PO ×3 (10:01→20:29)
[2019-05-30] MEDS: LORazepam 0.5 MG TAB PO (10:01)
[2019-05-30] MEDS: Cyanocobalamin 100 MCG TABLET PO (10:02)
[2019-05-30] MEDS: Ascorbic Acid 500 MG TAB PO ×2 (10:02→20:29)
[2019-05-30] MEDS: Glucosamine 500 MG CAP PO ×2 (10:02→20:28)
[2019-05-30] MEDS: oxyCODONE 5 mg/Acetaminophen 325 mg TAB 1 TAB PO ×2 (10:02→20:38)
[2019-05-30] MEDS: Pantoprazole 40 MG TABCR PO (10:02)
[2019-05-30] MEDS: Ferrous Sulfate 325 MG TAB PO (10:03)
[2019-05-30] MEDS: Cyclobenzaprine 10 MG TAB 20 MG PO ×2 (10:03→20:28)
[2019-05-30] MEDS: dilTIAZem 30 MG TAB 15 MG PO ×2 (10:03→10:40)
[2019-05-30] MEDS: Loperamide 2 MG CAP PO ×3 (10:03→18:10)
[2019-05-30] MEDS: Methylphenidate 10 MG TAB PO ×2 (10:03→14:23)
[2019-05-30] MEDS: Anastrozole 1 MG TAB PO (10:03)
[2019-05-30] MEDS: Nystatin POWDER 60 GM JAR TP ×3 (10:04→20:39)
[2019-05-30] MEDS: Triamcinolone 0.1% CR 15 GM TUBE TP ×2 (10:04→20:40)
[2019-05-30] MEDS: Folic Acid 1 MG TAB 2 MG PO (10:07)
[2019-05-30] MEDS: Sertraline 50 MG TAB 100 MG PO (10:41)
[2019-05-30] MEDS: Budesonide/Formoterol 160/4.5 6 GM 60 PUFF INH IH ×2 (11:36→20:39)
[2019-05-30] MEDS: Alteplase 2 MG VIAL IJ ×2 (11:38→14:16)
[2019-05-30] MEDS: Water,Injection,Sterile 10 ML VIAL IJ ×2 (11:38→14:16)
--- NOTE | 2019-05-30 12:03 | W.PM.PROGNOT ---
Date of Service Date of service: 05/30/19 Time of Service: 12:03 Assessment and Plan (1) Sepsis: Current visit: No Status: Acute Diagnosis of sepsis based on initial presentation with Leukocytosis, Tachycardia (although with chronicity to this), [place], and elevated Lactic Acid. Patient was afebrile however. Etiology secondary to Pulmonary Source for infection. - Blood Cultures from 05/24 & 05/26 remain negative (1 bottle with likely contaminant). - Urinalysis not overtly convincing for UTI, with cultures showing <100,000 CFU of VRE, clinically asymptomatic. Very likely colonization. Patient did receive 3 days of Linezolid. - Patient received a total of 4 days of Vancomycin, 3 days of Linezolid, and 5 days of Aztreonam. Procalcitonin decreased from 0.4 to undetectable, and antibiotics were discontinued. - Sepsis appears resolved. Patient is chronically hypotensive and tachycardic (BB has been on hold). No fever and lack of leukocytosis, and patient appears non-toxic. Continue to hold off on further antibiotics. (2) HCAP (healthcare-associated pneumonia): Current visit: Yes Status: Acute Treatment as above. Sputum culture + for MSSA. (3) STACEY (obstructive sleep apnea): Current visit: No Status: Chronic Continue CPAP. (4) Right heart failure with reduced right ventricular function: Current visit: No Status: Chronic Noted. Monitor volume status. (5) Tachycardia: Current visit: No Status: Acute History of both Paroxysmal Afib and SVTs - patient's blood pressure has been intolerant of resumption of BB therapy, which has remained on hold for some time. Will continue low dose Diltiazem and titrate carefully today, and monitor blood pressures carefully. (6) Depression: Current visit: No Status: Chronic History of Anxiety, Depression, and Borderline Personality Disorder. Continue home regimen of Clonazepam, resume SSRI. Discontinue prn Lorazepam. (7) DVT prophylaxis: Current visit: No Status: Acute Heparin SC. Subjective Interval history since last seen: 62 year old woman with a prior medical history of ascending cholangitis with septic shock s/p biliary drain that remains in place, admitted from [facility] Emergency Department on 05/24 with a diagnosis of Pneumonia. Ms. Watson has a history of Ascending Cholangitis, [place] [facility] with evidence of septic shock s/p biliary drain that still remains in place and was last changed on 04/28/2019. She also has a Past Medical History of Borderline Personality Disorder, Morbid Obesity, Breast Ca, CAD, COPD on Home O2, STACEY, PHTN with severe TR, Chronic Diastolic and Right sided CHF, and GERD. She has been noted to have PSVTs in the past, and has Paroxysmal Afib as a prior history as well, not anticoagulated. Patient presented to [facility] ED with complaints of nausea and vomiting, epigastric pain, and malaise, found to be hypotensive with imaging showing evidence of a right sided infiltrate. The CT of her chest and abdomen also showed a stable left pleural effusion, stable opacity in the left lung apex likely representing scarring, and stable fluid collect in the left chest wall. Her percutaneous biliary drain was noted to be stable in location. She was treated with aggressive IVFs and broad-spectrum antibiotics, and referred for admission. This morning Ms. Watson has no complaints. Her antibiotics were discontinued yesterday, and she remains afebrile. She also continued to be tachycardic and hypotensive, which appear unchanged. No overnight events reported. Exam Narrative Exam Narrative: General: Patient appears comfortable, AAOX3, NAD Neck: Supple CV: Regular, tachycardic, S1S2, No rubs, murmurs, or gallops. Pulmonary: Clear to auscultation bilaterally, no crackles, wheezing, or rhonchi on exam limited by body habitus Abdomen: + Bowel Sounds, soft, nontender, nondistended Vascular: B/l LE Lymphedema. : Gao in place Psych: Depressed mood and affect. Objective Objective Clinical Data: Abnormal lab results 05/30/19 05/30/19 Range/Units 07:16 07:16 RBC 3.76 L (4.00-5.20) m/cumm MCV 105.6 H (80-95) fL MCHC 30.7 L (32.0-36.0) g/dL Plt Count 123 L (130-400) x1000/uL Absolute Lymphocytes 0.94 L (1.2-3.4) k/cumm Chloride 110 H (98-107) mmol/L Calcium 8.4 L (8.5-10.1) mg/dL Magnesium 1.7 L (1.8-2.4) mg/dL Vital Signs Temperature 36.6 C 05/30/19 08:09 Temperature Source Temporal Artery Scan 05/30/19 08:09 Pulse 116 H 05/30/19 10:03 Pulse Rhythm Regular 05/25/19 09:40 Pulse 120 H 05/30/19 10:03 Respiratory Rate 23 05/30/19 10:03 Respiratory Effort 05/30/19 08:09 Respiratory Depth Normal 05/30/19 08:09 Respiratory Pattern Normal 05/30/19 08:09 Blood Pressure 87/54 L 05/30/19 10:03 Blood Pressure Mean 62 05/30/19 10:03 Blood Pressure Position Supine 05/30/19 08:09 Pulse Oximetry 97 05/30/19 08:09 Oxygen Delivery Method Room Air 05/30/19 08:09 Oxygen Flow Rate 0 05/30/19 08:09 Fraction of Inspired Oxygen (FIO2) 21 05/26/19 13:00 Pain Level 0 05/30/19 08:09 Comment 05/25/19 00:05 Intake & Output 05/29/19 05/30/19 05/30/19 23:59 11:59 23:59 Intake Total 800 / 1890 440 / 440 Output Total 1875 / 3825 1150 / 1150 Balance -1075 / -1935 -710 / -710 Weight 105.7 kg Intake: IV 160 / 690 Oral 640 / 1200 440 / 440 Output: Drainage 675 / 975 475 / 475 R abdomen biliary drain 675 / 975 475 / 475 Urine 1200 / 2850 675 / 675 Other: Urine Color Yellow Yellow Urine Appearance Clear Clear Comment Gao patent draining clear yellow urine, QS Gao patent draining clear yellow urine, QS Stool Occult Blood Negative Negative Stool Size Copious Large Stool Characteristics Soft Soft Green Brown Laboratory Results WBC 5.11 k/cumm (4.4-10.8) 05/30/19 07:16 RBC 3.76 m/cumm (4.00-5.20) L 05/30/19 07:16 Hgb 12.2 g/dL (12.0-15.5) 05/30/19 07:16 Hct 39.7 % (36.0-46.0) 05/30/19 07:16 MCV 105.6 fL (80-95) H 05/30/19 07:16 MCH 32.4 pg (27.0-33.0) 05/30/19 07:16 MCHC 30.7 g/dL (32.0-36.0) L 05/30/19 07:16 RDW 14.2 % (11.7-14.6) 05/30/19 07:16 Plt Count 123 x1000/uL (130-400) L 05/30/19 07:16 MPV 10.6 fL (8.0-11.0) 05/30/19 07:16 Immature Gran % 0.2 05/30/19 07:16 68.8 05/30/19 07:16 Cancelled 05/24/19 04:55 18.4 05/30/19 07:16 Atypical Lymphs % Cancelled 05/24/19 04:55 6.1 05/30/19 07:16 5.7 05/30/19 07:16 0.8 05/30/19 07:16 Cancelled 05/24/19 04:55 Cancelled 05/24/19 04:55 Cancelled 05/24/19 04:55 Absolute Neutrophils 3.52 k/cumm (1.2-6.7) 05/30/19 07:16 Absolute Lymphocytes 0.94 k/cumm (1.2-3.4) L 05/30/19 07:16 Absolute Monocytes 0.31 k/cumm (0.11-0.7) 05/30/19 07:16 Absolute Eosinophils 0.29 k/cumm (0.0-0.7) 05/30/19 07:16 Absolute Basophils 0.04 k/cumm (0.0-0.2) 05/30/19 07:16 Nucleated RBCs Cancelled 05/24/19 04:55 Rbc morph reviewed 05/28/19 06:30 Cancelled 05/24/19 04:55 RBC Morphology See below 05/28/19 06:30 Present 05/28/19 06:30 1+ 05/28/19 06:30 Cancelled 05/24/19 04:55 Cancelled 05/24/19 04:55 1+ 05/28/19 06:30 Cancelled 05/24/19 04:55 2+ 05/28/19 06:30 Cancelled 05/24/19 04:55 Cancelled 05/24/19 04:55 Cancelled 05/24/19 04:55 Cancelled 05/24/19 04:55 Cancelled 05/24/19 04:55 Cancelled 05/24/19 04:55 Cancelled 05/24/19 04:55 Acanthocytes (Spur) Cancelled 05/24/19 04:55 Cancelled 05/24/19 04:55 PT 11.3 sec (9.3-11.0) H 05/24/19 06:15 INR 1.1 (0.9-1.1) 05/24/19 06:15 APTT 24.9 sec (21.0-31.4) 05/24/19 06:15 Sodium 142 mmol/L (136-145) 05/30/19 07:16 Potassium 4.3 mmol/L (3.5-5.1) 05/30/19 07:16 Chloride 110 mmol/L (98-107) H 05/30/19 07:16 Carbon Dioxide 28.2 mmol/L (21.0-32.0) 05/30/19 07:16 3.8 mmol/L (3-11) 05/30/19 07:16 BUN 7 mg/dL (7-18) 05/30/19 07:16 0.55 mg/dL (0.55-1.02) 05/30/19 07:16 >= 60.00 (mL/min/1.73m2) 05/30/19 07:16 Glucose 73 mg/dL (70-100) 05/30/19 07:16 1.4 mmol/l (0.6-1.4) 05/27/19 06:20 Calcium 8.4 mg/dL (8.5-10.1) L 05/30/19 07:16 Magnesium 1.7 mg/dL (1.8-2.4) L 05/30/19 07:16 0.5 mg/dL (0.2-1.0) 05/25/19 06:25 0.20 mg/dL (0.00-0.20) 05/25/19 06:25 AST 11 U/L (15-37) L 05/25/19 06:25 ALT 12 U/L (12-78) 05/25/19 06:25 124 U/L (46-116) H 05/25/19 06:25 < 0.05 ng/mL (0.00-0.06) 05/24/19 06:15 1.70 mg/dL (0.0-0.3) H 05/25/19 06:25 6.2 g/dL (6.4-8.2) L 05/25/19 06:25 2.3 g/dL (3.4-5.0) L 05/25/19 06:25 27 U/L (73-393) L 05/24/19 06:15 < 0.1 ng/mL 05/29/19 08:25 TSH 1.62 uIU/mL (0.36-3.74) 05/24/19 12:40 Free T4 1.38 ng/dL (0.76-1.46) 05/24/19 12:40 Yellow (Yellow) 05/24/19 03:25 Clear (Clear) 05/24/19 03:25 5.0 (5-8) 05/24/19 03:25 Ur Specific Mobile 1.025 (1.005-1.025) 05/24/19 03:25 100 mg/dL (Negative) H 05/24/19 03:25 15 mg/dL (Negative) H 05/24/19 03:25 Small (Negative) H 05/24/19 03:25 Negative (Negative) 05/24/19 03:25 Small (Negative) H 05/24/19 03:25 0.2 EU/dL (Up TO 0.2) 05/24/19 03:25 Ur Leukocyte Esterase Small (Negative) H 05/24/19 03:25 0-2 (0-2) 05/24/19 03:25 5-10 HPF (0-5) 05/24/19 03:25 Ur Epithelial Cells Rare HPF (Negative) 05/24/19 03:25 Negative HPF (Negative) 05/24/19 03:25 Few HPF (Negative) 05/24/19 03:25 Negative LPF (Negative) 05/24/19 03:25 Negative (Negative) 05/24/19 03:25 Moderate yeast (Negative) 05/24/19 03:25 Ur Culture Indicated? Yes 05/24/19 03:25 Negative mg/dL (Negative) 05/24/19 03:25 Vancomycin Trough 24.4 ug/mL (10.0-20.0) H* 05/27/19 06:20
--- NOTE | 2019-05-30 13:44 | PDOC.CMPRO ---
- If Service Date Differs Date of service: 05/30/19 Time of Service: 13:44 Care Management Progress Note S/O: CM met with Prema and her son and daughter in law. She has agreed to referrals to all prison facilities is [place] she is tearful at times but is willing to try to look at options. A:Prema is 63 year old female admitted with pneumonia currently being treated with IV antibiotics. P:[facility] placement [place] [facility] care, referral sent to [facility] and [facility] pending. Prema will remain at [facility] until a bed for LTC is identified and she is transferred with resumption of community support services. Ambulance transfer at time of discharge CM will coordinator.
[2019-05-30] MEDS: dilTIAZem 30 MG TAB PO (14:23)
[2019-05-30] MEDS: dilTIAZem 30 MG TAB 45 MG PO (20:28)
[2019-05-30] MEDS: Zolpidem 5 MG TAB PO (20:38)
[2019-05-30] MEDS: clonazePAM 1 MG TAB 2 MG PO (20:38)
[2019-05-31] VITALS (38 sets, daily range): BP systolic 75–113; BP diastolic 47–92; PULSE 75–141; RESP 14–31; TEMP 35.9–36.7; O2SAT 88–100
[2019-05-31] MEDS: Heparin 5,000 UNITS/ML VIAL 5000 UNITS SC ×3 (04:16→18:40)
[2019-05-31 07:15] LABS: Abs Immature Grans 0.01 k/cumm (0.0-0.09); Absolute Basophil Count 0.02 k/cumm (0.0-0.2); Absolute Eosinophil Count 0.31 k/cumm (0.0-0.7); Absolute Lymphocyte Count 0.92 k/cumm (1.2-3.4); Absolute Monocyte Count 0.39 k/cumm (0.11-0.7); Absolute Neutrophil Count 6.36 k/cumm (1.2-6.7); Basophils % 0.2; Eosinophils % 3.9; HCT 40.5 % (36.0-46.0); HGB 12.8 g/dL (12.0-15.5); Immature Grans % 0.1; Lymphocytes % 11.5; Mean Corp. HGB Concentration 31.6 g/dL (32.0-36.0); Mean Corpuscular Hemoglobin 33.3 pg (27.0-33.0); Mean Corpuscular Volume 105.5 fL (80-95); Mean Platelet Volume 10.9 fL (8.0-11.0); Monocytes % 4.9; Neutrophils % 79.4; Platelet Count 142 x1000/uL (130-400); RBC 3.84 m/cumm (4.00-5.20); RBC Distribution Width 14.2 % (11.7-14.6); White Blood Cell Count 8.01 k/cumm (4.4-10.8)
[2019-05-31] MEDS: Budesonide/Formoterol 160/4.5 6 GM 60 PUFF INH IH ×2 (07:23→19:04)
--- NOTE | 2019-05-31 07:26 | RESPIRATORY ---
gave pt her symbicort 2 puffs and tolerated well. BS clear and diminihsed bilat. Sats 96% on room air. pt refused to wear Bipap last night reported by RN
[2019-05-31 07:27] LABS: Anion Gap 6.8 mmol/L (3-11); BUN 10 mg/dL (7-18); CO2 29.2 mmol/L (21.0-32.0); CREATININE 0.64 mg/dL (0.55-1.02); Calcium 8.4 mg/dL (8.5-10.1); Chloride 106 mmol/L (98-107); Glucose 70 mg/dL (70-100); Magnesium 1.8 mg/dL (1.8-2.4); Potassium 4.6 mmol/L (3.5-5.1); Sodium 142 mmol/L (136-145)
--- NOTE | 2019-05-31 07:46 | OT.INDS ---
Date of service: 05/31/19 Time of Service: 07:46 Occupational Therapy Notes Occupational Therapy Inpatient Discharge Summary Date: 05/31/19 Dates of Service: 05/25/19-05/31/19 Referring Doctor:Francheska Charles MD OT Orders: Eval and treat Precautions: Fall, standard PATIENT PROFILE/ADMITTING DIAGNOSIS: Pt is a 63 year old female referred to [facility] to the ICU for penumonia, Sepsis, Hypotension, Abdominal pain. Past Medical History: Medical History ADD (attention deficit disorder) Angina at rest Asthma Atrial fibrillation (Chronic) Atrial fibrillation Bilateral cataracts (Chronic) Breast cancer Chest pain, atypical Chronic back pain (Chronic) Chronic pain Chronic rhinitis Cirrhosis of liver Compression fracture of spine Decreased visual acuity Depression (Chronic) Depression Diastolic heart failure (Chronic) Diastolic heart failure DJD (degenerative joint disease) (Chronic) Gastric bypass status for obesity GI (gastrointestinal bleed) History of DVD (Chronic) History of paroxysmal supraventricular tachycardia History of PSVT (paroxysmal supraventricular tachycardia) (Chronic) Hx of deep venous thrombosis Hyperparathyroidism , secondary, non-renal Hypertension IBS (irritable bowel syndrome) Insomnia Morbid obesity Morbid obesity with BMI of 45.0-49.9, adult (Chronic) STACEY (obstructive sleep apnea) (Chronic) STACEY (obstructive sleep apnea) Osteoarthritis Osteopenia Oxygen dependent Paroxysmal atrial fibrillation (Chronic) PUD (peptic ulcer disease) Pulmonary HTN Right heart failure with reduced right ventricular function (Chronic) Superficial thrombophlebitis Tricuspid regurgitation Surgical History Breast, Mastectomy EGD - MAC Gastric Bypass History of biliary T-tube placement (Resolved 09/01/18) Current Functional Limitations: Decreased (B) UE AROM, decreased functional activity tolerance, decreased strength (B) UE, decreased (I) in ADLs/IADLs. Social History/Home Situation: Pt is a poor historian. It is unclear as to whether pt was at LTC prior or if she was on her own. She speaks very quietly and wants the person she is talking to, to get close to her. She keeps her eyes shut at times when she is talking. She has decreased response and sometimes avoids questions that were asked to her. She did say that someone helped her get washed up but that she does everything that she can. She states that she needs (A) but she cannot brush her own hair and that she has a huge knot in her hair because she cannot reach the back of her head. Equipment owned/DME: CPAP machine, Mobilized wheelchair, hospital bed SUBJECTIVE: NT THIS DOCUMENT SERVES A SUMMARY OF CARE NO SKILLED OT SERVICES PROVIDED FOR THIS DOCUMENTATION. OBJECTIVE: ROM: RUE AROM ~160*, elbow WNL, hand and digits WNL L UE AROM~160*, elbow WNL, hand and digits WNL STRENGTH: RUE 3/5 throughout LUE 3/5 throughout FUNCTIONAL MOBILITY/ADLS: Based on last tx performed. No skilled OT services performed for this documentation. BATHING: Lying in bed with min vc Upper Body: (I) washing face and min (A) washing from (B) elbow to shoulders Lower Body: NT pt denies BALANCE: Static sitting Good Dynamic Sitting Good Static Standing NT Dynamic Standing NT ASSESSMENT: Patient is a 63-year-old female referred to occupational therapy services with diagnosis of penumonia, Sepsis, Hypotension, Abdominal pain. Pt was seen for 2 skilled OT services. She continues to refuse OT services and reports that she does not want anyone in her room. Pt is not receptive to skilled OT services at this time. OT was not able to progress pt towards her goals due to multiple refusals. OT will discharge pt from skilled OT services at this time. GOALS-Not met 1. Dressing (I) with [facility] gown. 2. Bathing sitting on side of the bed pt will be (I) with washing abdomen, and upper legs and (B) UE. 3. (I) with cutting food during eating routines. PLAN OF CARE/TREATMENT PLAN: Discharge from skilled OT services DISCHARGE RECOMMENDATIONS LTC when medically cleared per MD. TREATMENT TIME/MINUTES/CODES N/A Adriana Zaragoza OTR/L [facility]
[2019-05-31] MEDS: dilTIAZem 30 MG TAB 45 MG PO (09:02)
[2019-05-31] MEDS: Lactobacillus Acidophilus CAP 1 CAP PO ×3 (09:03→18:41)
[2019-05-31] MEDS: Ferrous Sulfate 325 MG TAB PO (09:03)
[2019-05-31] MEDS: Cyanocobalamin 100 MCG TABLET PO (09:03)
[2019-05-31] MEDS: Loperamide 2 MG CAP PO ×3 (09:03→18:40)
[2019-05-31] MEDS: Sertraline 50 MG TAB 100 MG PO (09:03)
[2019-05-31] MEDS: Ascorbic Acid 500 MG TAB PO ×2 (09:04→19:04)
[2019-05-31] MEDS: Methylphenidate 10 MG TAB PO ×2 (09:04→12:54)
[2019-05-31] MEDS: Glucosamine 500 MG CAP PO ×2 (09:04→18:41)
[2019-05-31] MEDS: Folic Acid 1 MG TAB 2 MG PO (09:04)
[2019-05-31] MEDS: Anastrozole 1 MG TAB PO (09:04)
[2019-05-31] MEDS: Pantoprazole 40 MG TABCR PO (09:05)
[2019-05-31] MEDS: Cyclobenzaprine 10 MG TAB 20 MG PO ×2 (09:05→18:40)
[2019-05-31] MEDS: Triamcinolone 0.1% CR 15 GM TUBE TP ×2 (09:41→19:04)
[2019-05-31] MEDS: Nystatin POWDER 60 GM JAR TP ×2 (09:41→19:05)
[2019-05-31] MEDS: Magnesium Oxide 400 MG TAB PO (11:02)
[2019-05-31] MEDS: Ergocalciferol 50000 UNITS CAP PO (11:03)
--- NOTE | 2019-05-31 12:28 | PGE_ITS ---
Date of Service Date of service: 05/31/19 Time of Service: 12:28 Assessment and Plan (1) Tachycardia: Current visit: No Status: Acute History of both Paroxysmal Afib and SVTs - patient's blood pressure has been intolerant of resumption of BB therapy and required pressor support, with Metoprolol remaining on hold for some time. Diltiazem initiated and titrate carefully without any change in tachycardia. EKGs reviewed, and case discussed in great length with Cardiology. Tachycardia appears to be sinus, but patient has history of PAF/PSVTs by monitors in the past. - Currently afebrile, and infection appears treated. - Does not appear to be volume depleted - has had negative I/O's for 3 days, but is overall net positive approximately 6 L since admission. Labs do not seem to indicate intravascular depletion. - No evidence of anemia, not hypoxic, and not complaining of pain. - TSH checked and normal. - No evidence or history of left sided CHF - patient does have a history of RV dysfunction and PHTN however. Ms. Watson does have hypotension, but this appears to be a chronic findings. She also has anxiety, and takes stimulant therapy (Methylphenidate) chronically and not interested in discontinuation. Doubt PE as she has been maintained on chemical DVT prophylaxis. Also doubt Pheochromocytoma as there have been no associated headache, diaphoresis, or hypertension reported. Persistent tachycardia may also represent Dysautonomia vs. compensatory for chronically low blood pressure. - Obvious concern here is for a tachy mediated cardiomyopathy in the future without appropriate rate control, and patient also has a history of SVTs and PAF and needs a willian agent on board. Will plan on resuming low dose BB now that infection has resolved, and monitor blood pressure and HR carefully. If needed, consider initiation of Midodrine to help with hypotension. (2) Sepsis: Current visit: No Status: Acute Diagnosis of sepsis based on initial presentation with Leukocytosis, Tachycardia (although with chronicity to this), [place], and elevated Lactic Acid. Patient was afebrile however. Etiology secondary to Pulmonary Source for infection. - Blood Cultures from 05/24 & 05/26 remain negative (1 bottle with likely contaminant). - Urinalysis not overtly convincing for UTI, with cultures showing <100,000 CFU of VRE, clinically asymptomatic. Very likely colonization. Patient did receive 3 days of Linezolid. - Patient received a total of 4 days of Vancomycin, 3 days of Linezolid, and 5 days of Aztreonam. Procalcitonin decreased from 0.4 to undetectable, and antibiotics were discontinued. - Sepsis appears resolved. Patient is chronically hypotensive and tachycardic as above, both appear chronic. No fever and lack of leukocytosis, and patient appears non-toxic. Continue to hold off on further antibiotics. (3) HCAP (healthcare-associated pneumonia): Current visit: Yes Status: Acute Treatment as above. Sputum culture + for MSSA. (4) STACEY (obstructive sleep apnea): Current visit: No Status: Chronic Continue CPAP. (5) Right heart failure with reduced right ventricular function: Current visit: No Status: Chronic Noted. Monitor volume status. (6) Depression: Current visit: No Status: Chronic History of Anxiety, Depression, and Borderline Personality Disorder. Continue home regimen of Clonazepam, resume SSRI. Discontinue prn Lorazepam. (7) DVT prophylaxis: Current visit: No Status: Acute Heparin SC. Subjective Interval history since last seen: 62 year old woman with a prior medical history of ascending cholangitis with septic shock s/p biliary drain that remains in place, admitted from [facility] Emergency Department on 05/24 with a diagnosis of Pneumonia. Ms. Watson has a history of Ascending Cholangitis, treated at [facility], with evidence of septic shock s/p biliary drain that still remains in place and was last changed on 04/28/2019. She also has a Past Medical History of Borderline Personality Disorder, Morbid Obesity, Breast Ca, CAD, COPD on Home O2, STACEY, PHTN with severe TR, Chronic Diastolic and Right sided CHF, and GERD. She has been noted to have PSVTs in the past, and has Paroxysmal Afib as a prior history as well, not anticoagulated. Patient presented to [facility] ED with complaints of nausea and vomiting, epigastric pain, and malaise, found to be hypotensive with imaging showing evidence of a right sided infiltrate. The CT of her chest and abdomen also showed a stable left pleural effusion, stable opacity in the left lung apex likely representing scarring, and stable fluid collect in the left chest wall. Her percutaneous biliary drain was noted to be stable in location. She was treated with aggressive IVFs and broad-spectrum antibiotics, and referred for admission. This morning Ms. Malanson has no acute complaints. Her antibiotics were discontinued on 05/29, and she remains afebrile and without leukocytosis. She also continued to be tachycardic and hypotensive, which appear unchanged and somewhat chronic. No overnight events reported. Exam Narrative Exam Narrative: General: Patient appears comfortable, AAOX3, NAD Neck: Supple CV: Regular, tachycardic, S1S2, No rubs, murmurs, or gallops. Pulmonary: Clear to auscultation bilaterally, no crackles, wheezing, or rhonchi on exam limited by body habitus Abdomen: + Bowel Sounds, soft, nontender, nondistended Vascular: B/l LE Lymphedema. : Arndt in place Psych: Depressed mood and affect. Objective Objective Clinical Data: Abnormal lab results 05/31/19 05/31/19 Range/Units 06:10 06:10 RBC 3.84 L (4.00-5.20) m/cumm MCV 105.5 H (80-95) fL MCH 33.3 H (27.0-33.0) pg MCHC 31.6 L (32.0-36.0) g/dL Absolute Lymphocytes 0.92 L (1.2-3.4) k/cumm Calcium 8.4 L (8.5-10.1) mg/dL Vital Signs Temperature 36.5 C 05/31/19 04:30 Temperature Source Temporal Artery Scan 05/31/19 04:30 Pulse 139 H 05/31/19 09:00 Pulse Rhythm Regular 05/25/19 09:40 Pulse 137 H 05/31/19 10:00 Respiratory Rate 26 H 05/31/19 10:00 Respiratory Effort Non-Labored 05/31/19 09:25 Respiratory Depth Shallow 05/31/19 09:25 Respiratory Pattern Normal 05/31/19 09:25 Blood Pressure 89/58 L 05/31/19 09:00 Blood Pressure Mean 66 05/31/19 09:00 Blood Pressure Position Supine 05/31/19 04:30 Pulse Oximetry 94 L 05/31/19 09:01 Oxygen Delivery Method Room Air 05/31/19 04:30 Oxygen Flow Rate 0 05/31/19 04:30 Fraction of Inspired Oxygen (FIO2) 21 05/26/19 13:00 Pain Level 7 05/31/19 09:25 Comment 05/31/19 02:00 Intake & Output 05/30/19 05/31/19 05/31/19 23:59 11:59 23:59 Intake Total 940 / 1380 100 / 100 Output Total 1777 / 2927 825 / 825 Balance -837 / -1547 -725 / -725 Weight 105.1 kg Intake: Oral 940 / 1380 100 / 100 Output: Drainage 350 / 825 350 / 350 R abdomen biliary drain 350 / 825 350 / 350 Urine 1077 / 1752 475 / 475 Stool 350 / 350 Other: Urine Color Yellow Yellow Urine Appearance Sediment Sediment Urine Odor Normal Comment Indwelling arndt patent Arndt draining clear yellow urine Stool Occult Blood Negative Stool Size Large Moderate Stool Characteristics Soft Soft Mucoid Voiding Methods Indwelling Catheter Laboratory Results WBC 8.01 k/cumm (4.4-10.8) D 05/31/19 06:10 RBC 3.84 m/cumm (4.00-5.20) L 05/31/19 06:10 Hgb 12.8 g/dL (12.0-15.5) 05/31/19 06:10 Hct 40.5 % (36.0-46.0) 05/31/19 06:10 MCV 105.5 fL (80-95) H 05/31/19 06:10 MCH 33.3 pg (27.0-33.0) H 05/31/19 06:10 MCHC 31.6 g/dL (32.0-36.0) L 05/31/19 06:10 RDW 14.2 % (11.7-14.6) 05/31/19 06:10 Plt Count 142 x1000/uL (130-400) 05/31/19 06:10 MPV 10.9 fL (8.0-11.0) 05/31/19 06:10 Immature Gran % 0.1 05/31/19 06:10 79.4 05/31/19 06:10 Cancelled 05/24/19 04:55 11.5 05/31/19 06:10 Atypical Lymphs % Cancelled 05/24/19 04:55 4.9 05/31/19 06:10 3.9 05/31/19 06:10 0.2 05/31/19 06:10 Cancelled 05/24/19 04:55 Cancelled 05/24/19 04:55 Cancelled 05/24/19 04:55 Absolute Neutrophils 6.36 k/cumm (1.2-6.7) 05/31/19 06:10 Absolute Lymphocytes 0.92 k/cumm (1.2-3.4) L 05/31/19 06:10 Absolute Monocytes 0.39 k/cumm (0.11-0.7) 05/31/19 06:10 Absolute Eosinophils 0.31 k/cumm (0.0-0.7) 05/31/19 06:10 Absolute Basophils 0.02 k/cumm (0.0-0.2) 05/31/19 06:10 Nucleated RBCs Cancelled 05/24/19 04:55 Rbc morph reviewed 05/28/19 06:30 Cancelled 05/24/19 04:55 RBC Morphology See below 05/28/19 06:30 Present 05/28/19 06:30 1+ 05/28/19 06:30 Cancelled 05/24/19 04:55 Cancelled 05/24/19 04:55 1+ 05/28/19 06:30 Cancelled 05/24/19 04:55 2+ 05/28/19 06:30 Cancelled 05/24/19 04:55 Cancelled 05/24/19 04:55 Cancelled 05/24/19 04:55 Cancelled 05/24/19 04:55 Cancelled 05/24/19 04:55 Cancelled 05/24/19 04:55 Cancelled 05/24/19 04:55 Acanthocytes (Spur) Cancelled 05/24/19 04:55 Cancelled 05/24/19 04:55 PT 11.3 sec (9.3-11.0) H 05/24/19 06:15 INR 1.1 (0.9-1.1) 05/24/19 06:15 APTT 24.9 sec (21.0-31.4) 05/24/19 06:15 Sodium 142 mmol/L (136-145) 05/31/19 06:10 Potassium 4.6 mmol/L (3.5-5.1) 05/31/19 06:10 Chloride 106 mmol/L (98-107) 05/31/19 06:10 Carbon Dioxide 29.2 mmol/L (21.0-32.0) 05/31/19 06:10 6.8 mmol/L (3-11) 05/31/19 06:10 BUN 10 mg/dL (7-18) 05/31/19 06:10 0.64 mg/dL (0.55-1.02) 05/31/19 06:10 >= 60.00 (mL/min/1.73m2) 05/31/19 06:10 Glucose 70 mg/dL (70-100) 05/31/19 06:10 1.4 mmol/l (0.6-1.4) 05/27/19 06:20 Calcium 8.4 mg/dL (8.5-10.1) L 05/31/19 06:10 Magnesium 1.8 mg/dL (1.8-2.4) 05/31/19 06:10 0.5 mg/dL (0.2-1.0) 05/25/19 06:25 0.20 mg/dL (0.00-0.20) 05/25/19 06:25 AST 11 U/L (15-37) L 05/25/19 06:25 ALT 12 U/L (12-78) 05/25/19 06:25 124 U/L (46-116) H 05/25/19 06:25 < 0.05 ng/mL (0.00-0.06) 05/24/19 06:15 1.70 mg/dL (0.0-0.3) H 05/25/19 06:25 6.2 g/dL (6.4-8.2) L 05/25/19 06:25 2.3 g/dL (3.4-5.0) L 05/25/19 06:25 27 U/L (73-393) L 05/24/19 06:15 < 0.1 ng/mL 05/29/19 08:25 TSH 1.62 uIU/mL (0.36-3.74) 05/24/19 12:40 Free T4 1.38 ng/dL (0.76-1.46) 05/24/19 12:40 Yellow (Yellow) 05/24/19 03:25 Clear (Clear) 05/24/19 03:25 5.0 (5-8) 05/24/19 03:25 Ur Specific [place] 1.025 (1.005-1.025) 05/24/19 03:25 100 mg/dL (Negative) H 05/24/19 03:25 15 mg/dL (Negative) H 05/24/19 03:25 Small (Negative) H 05/24/19 03:25 Negative (Negative) 05/24/19 03:25 Small (Negative) H 05/24/19 03:25 0.2 EU/dL (Up TO 0.2) 05/24/19 03:25 Ur Leukocyte Esterase Small (Negative) H 05/24/19 03:25 0-2 (0-2) 05/24/19 03:25 5-10 HPF (0-5) 05/24/19 03:25 Ur Epithelial Cells Rare HPF (Negative) 05/24/19 03:25 Negative HPF (Negative) 05/24/19 03:25 Few HPF (Negative) 05/24/19 03:25 Negative LPF (Negative) 05/24/19 03:25 Negative (Negative) 05/24/19 03:25 Moderate yeast (Negative) 05/24/19 03:25 Ur Culture Indicated? Yes 05/24/19 03:25 Negative mg/dL (Negative) 05/24/19 03:25 Vancomycin Trough 24.4 ug/mL (10.0-20.0) H* 05/27/19 06:20
[2019-05-31] MEDS: Metoprolol 12.5 MG TAB PO ×2 (12:53→18:40)
--- NOTE | 2019-05-31 14:56 | CMPROGNOTE_ITS ---
Care Management Progress Note S/O: Prema was sitting up on her bed, talking on the telephone when CM attempted to meet with her. CM met with [facility] CMs Bernardo and Annie. The plan remains for placement to be sought for Prema as she is not safe to return home and no longer has housing. Anticipate when medically stable, Prema will transition to SW until placement is identified. A:Prema is 63 year old female admitted with pneumonia currently being treated with IV antibiotics. P: prison placement for senior care care, updates from [facility] reported that due to previous behaviors, [facility] will not be offering her a bed in their facilities. Prmea will remain at [facility] until a bed for LTC is identified, CM will connect with local and out of county agencies to establish additional plan of AFC and [facility] waiver.
--- NOTE | 2019-05-31 16:05 | CHAPLAIN ---
Prema's sister from [place] visited here this afternoon, as well as two women from [place] [facility] (?). Her sister said that Prema was having a difficult time with talk about senior care placement, but she knows she needs to go somewhere. She can't go home. Someone has brought in lots of family photos for Prema to have with her while she's here. Again she talked about her TV (which is quite large) and hoping she can take that wherever she goes as watching TV is particularly soothing to her. She has sets of DVDs of [employer] and [employer] Waltons, that she especially likes watching.
[2019-05-31] MEDS: Normal Saline Flush 10 ML SYR IVP (19:28)
[2019-05-31] MEDS: clonazePAM 1 MG TAB 2 MG PO (20:34)
[2019-05-31] MEDS: oxyCODONE 5 mg/Acetaminophen 325 mg TAB 1 TAB PO (20:34)
[2019-05-31] MEDS: Zolpidem 5 MG TAB PO (20:34)
[2019-06-01] VITALS (42 sets, daily range): BP systolic 72–155; BP diastolic 39–123; PULSE 83–127; RESP 14–29; TEMP 36–37.1; O2SAT 73–100
[2019-06-01 07:10] LABS: Abs Immature Grans 0.01 k/cumm (0.0-0.09); Absolute Basophil Count 0.02 k/cumm (0.0-0.2); Absolute Monocyte Count 0.51 k/cumm (0.11-0.7); Absolute Neutrophil Count 5.09 k/cumm (1.2-6.7); Basophils % 0.3; Eosinophils % 5.7; HCT 39.4 % (36.0-46.0); HGB 12.8 g/dL (12.0-15.5); Immature Grans % 0.1; Lymphocytes % 14.2; Mean Corp. HGB Concentration 32.5 g/dL (32.0-36.0); Mean Corpuscular Hemoglobin 33.3 pg (27.0-33.0); Mean Corpuscular Volume 102.6 fL (80-95); Mean Platelet Volume 10.5 fL (8.0-11.0); Monocytes % 7.3; Neutrophils % 72.4; Platelet Count 162 x1000/uL (130-400); RBC 3.84 m/cumm (4.00-5.20); RBC Distribution Width 14.2 % (11.7-14.6); White Blood Cell Count 7.03 k/cumm (4.4-10.8)
[2019-06-01 07:31] LABS: Anion Gap 3.8 mmol/L (3-11); BUN 18 mg/dL (7-18); CO2 31.2 mmol/L (21.0-32.0); Calcium 8.2 mg/dL (8.5-10.1); Chloride 104 mmol/L (98-107); Glucose 80 mg/dL (70-100); Magnesium 1.6 mg/dL (1.8-2.4); Potassium 4.2 mmol/L (3.5-5.1); Sodium 139 mmol/L (136-145)
[2019-06-01] MEDS: Heparin 5,000 UNITS/ML VIAL 5000 UNITS SC ×2 (09:01→16:13)
[2019-06-01] MEDS: Ascorbic Acid 500 MG TAB PO ×2 (09:01→19:41)
[2019-06-01] MEDS: Lactobacillus Acidophilus CAP 1 CAP PO ×3 (09:01→19:40)
[2019-06-01] MEDS: Metoprolol 25 MG TAB PO ×2 (09:01→16:13)
[2019-06-01] MEDS: Cyanocobalamin 100 MCG TABLET PO (09:01)
[2019-06-01] MEDS: Cyclobenzaprine 10 MG TAB 20 MG PO ×2 (09:02→19:40)
[2019-06-01] MEDS: Anastrozole 1 MG TAB PO (09:02)
[2019-06-01] MEDS: Glucosamine 500 MG CAP PO ×2 (09:02→19:42)
[2019-06-01] MEDS: Sertraline 50 MG TAB 100 MG PO (09:02)
[2019-06-01] MEDS: Loperamide 2 MG CAP PO ×3 (09:02→19:40)
[2019-06-01] MEDS: Ferrous Sulfate 325 MG TAB PO (09:03)
[2019-06-01] MEDS: Methylphenidate 10 MG TAB PO ×2 (09:03→13:38)
[2019-06-01] MEDS: Pantoprazole 40 MG TABCR PO (09:04)
[2019-06-01] MEDS: Folic Acid 1 MG TAB 2 MG PO (09:05)
[2019-06-01] MEDS: Budesonide/Formoterol 160/4.5 6 GM 60 PUFF INH IH ×2 (09:24→20:22)
[2019-06-01] MEDS: Nystatin POWDER 60 GM JAR TP ×3 (09:30→19:44)
[2019-06-01] MEDS: Triamcinolone 0.1% CR 15 GM TUBE TP ×2 (09:30→19:45)
[2019-06-01] MEDS: MAGNESIUM SULFATE 2 GM/50 ML BAG IVPB (12:30)
[2019-06-01] MEDS: Mylanta Suspension 30 ML CUP PO (12:59)
[2019-06-01 14:55] LABS: Troponin I < 0.05 ng/mL (0.00-0.06)
--- NOTE | 2019-06-01 15:17 | PGE_ITS ---
Date of Service Date of service: 06/01/19 Time of Service: 15:17 Assessment and Plan (1) Chest pain: Current visit: Yes Status: Acute EKG Non-ischemic and essentially unchanged. Will rule out with serial cardiac biomarkers - initial value negative. Suspect non-cardiac etiology. (2) Tachycardia: Current visit: No Status: Acute History of both Paroxysmal Afib and SVTs - patient's blood pressure has been intolerant of resumption of BB therapy and required pressor support, with Metoprolol remaining on hold for some time. Diltiazem initiated and titrate carefully without any change in tachycardia. EKGs reviewed, and case discussed in great length with Cardiology. Tachycardia appears to be sinus, but patient has history of PAF/PSVTs by monitors in the past. - Currently afebrile, and infection appears treated. - Does not appear to be volume depleted - has had negative I/O's for 4 days, but is overall net positive approximately 5 L since admission. Labs do not seem to indicate intravascular depletion. - No evidence of anemia, not hypoxic, and not complaining of pain. - TSH checked and normal. - No evidence or history of left sided CHF - patient does have a history of RV dysfunction and PHTN however. Ms. Watson does have hypotension, but this appears to be a chronic findings. She also has anxiety, and takes stimulant therapy (Methylphenidate) chronically and not interested in discontinuation. Doubt PE as she has been maintained on chemical DVT prophylaxis. Also doubt Pheochromocytoma as there have been no associated headache, diaphoresis, or hypertension reported. Persistent tachycardia may also represent Dysautonomia vs. compensatory for chronically low blood pressure. - Obvious concern here is for a tachy mediated cardiomyopathy in the future without appropriate rate control, and patient also has a history of SVTs and PAF and needs a willian agent on board. Her HR has improved substantially with reinitiation of BB without significant change in her blood pressure. If needed, consider initiation of Midodrine to help with hypotension. (3) Sepsis: Current visit: No Status: Acute Diagnosis of sepsis based on initial presentation with Leukocytosis, Tachycardia (although with chronicity to this), [place], and elevated Lactic Acid. Patient was afebrile however. Etiology presumed secondary to Pulmonary Source for infection. - Blood Cultures from 05/24 & 05/26 remain negative (1 bottle with likely contaminant). - Urinalysis not overtly convincing for UTI, with cultures showing <100,000 CFU of VRE, clinically asymptomatic. Very likely colonization. Patient did receive 3 days of Linezolid. - Patient received a total of 4 days of Vancomycin, 3 days of Linezolid, and 5 days of Aztreonam. Procalcitonin decreased from 0.4 to undetectable, and antibiotics were discontinued. - Sepsis appears resolved. Patient is chronically hypotensive and tachycardic as above, both appear chronic. No fever and lack of leukocytosis, and patient appears non-toxic. Continue to hold off on further antibiotics. (4) HCAP (healthcare-associated pneumonia): Current visit: Yes Status: Acute Treatment as above. Sputum culture + for MSSA. (5) STACEY (obstructive sleep apnea): Current visit: No Status: Chronic Continue CPAP. (6) Right heart failure with reduced right ventricular function: Current visit: No Status: Chronic Noted. Monitor volume status. (7) Depression: Current visit: No Status: Chronic History of Anxiety, Depression, and Borderline Personality Disorder. Continue home regimen of Clonazepam, resume SSRI. Discontinue prn Lorazepam. (8) DVT prophylaxis: Current visit: No Status: Acute Heparin SC. Subjective Interval history since last seen: 62 year old woman with a prior medical history of ascending cholangitis with septic shock s/p biliary drain that remains in place, admitted from [facility] Emergency Department on 05/24 with a diagnosis of Pneumonia. Ms. Watson has a history of Ascending Cholangitis, treated at [facility], with evidence of septic shock s/p biliary drain that still remains in place and was last changed on 04/28/2019. She also has a Past Medical History of Borderline Personality Disorder, Morbid Obesity, Breast Ca, CAD, COPD on Home O2, TSACEY, PHTN with severe TR, Chronic Diastolic and Right sided CHF, and GERD. She has been noted to have PSVTs in the past, and has Paroxysmal Afib as a prior history as well, not anticoagulated. Patient presented to [facility] ED with complaints of nausea and vomiting, epigastric pain, and malaise, found to be hypotensive with imaging showing evidence of a right sided infiltrate. The CT of her chest and abdomen also showed a stable left pleural effusion, stable opacity in the left lung apex likely representing scarring, and stable fluid collect in the left chest wall. Her percutaneous biliary drain was noted to be stable in location. She was treated with aggressive IVFs and broad-spectrum antibiotics, and referred for admission. This morning Ms. Watson reports onset of 'chest pain' - nursing reports that patient has been in a supine position for the majority of her stay, and there was concern regarding possible GERD type symptoms. EKG was changed and essentially unchanged, and initial troponin is undetectable. Her antibiotics were discontinued on 05/29, and she remains afebrile and without leukocytosis. Her HR is vastly improved, and her hypotension remains unchanged. No overnight events reported. Exam Narrative Exam Narrative: General: Patient appears comfortable, AAOX3, NAD Neck: Supple CV: Regular, no longer tachycardic, S1S2, No rubs, murmurs, or gallops. Pulmonary: Clear to auscultation bilaterally, no crackles, wheezing, or rhonchi on exam limited by body habitus Abdomen: + Bowel Sounds, soft, nontender, nondistended Vascular: B/l LE Lymphedema. : Arndt in place Psych: Depressed mood and affect. Objective Objective Clinical Data: Abnormal lab results 06/01/19 06/01/19 Range/Units 06:45 06:45 RBC 3.84 L (4.00-5.20) m/cumm MCV 102.6 H (80-95) fL MCH 33.3 H (27.0-33.0) pg Absolute Lymphocytes 1.00 L (1.2-3.4) k/cumm Calcium 8.2 L (8.5-10.1) mg/dL Magnesium 1.6 L (1.8-2.4) mg/dL Vital Signs Temperature 36.5 C 06/01/19 13:02 Temperature Source Temporal Artery Scan 06/01/19 13:02 Pulse 83 06/01/19 13:02 Pulse Rhythm Regular 05/25/19 09:40 Pulse 101 H 06/01/19 14:00 Respiratory Rate 20 06/01/19 14:00 Respiratory Effort Non-Labored 06/01/19 13:02 Respiratory Depth Shallow 06/01/19 13:02 Respiratory Pattern Normal 06/01/19 13:02 Blood Pressure 85/59 L 06/01/19 13:02 Blood Pressure Mean 65 06/01/19 13:02 Blood Pressure Position Supine 06/01/19 04:00 Pulse Oximetry 96 06/01/19 13:02 Oxygen Delivery Method Nasal Cannula 06/01/19 13:02 Oxygen Flow Rate 3 06/01/19 13:02 Fraction of Inspired Oxygen (FIO2) 21 05/26/19 13:00 Pain Level 7 06/01/19 13:02 Comment 05/31/19 02:00 Intake & Output 05/31/19 06/01/19 06/01/19 23:59 11:59 23:59 Intake Total 520 / 620 Output Total 1675 / 2500 850 / 850 Balance -1155 / -1880 -850 / -850 Weight 111.6 kg Intake: Oral 520 / 620 Output: Drainage 400 / 750 R abdomen biliary drain 400 / 750 Urine 1275 / 1750 850 / 850 Other: Urine Color Yellow Yellow Yellow Urine Appearance Clear Cloudy Cloudy Sediment Sediment Comment arndt catheter in place and patent Pt has arndt in place Pt has arndt in place Stool Occult Blood Negative Stool Size Large Large Stool Characteristics Soft Formed Formed Brown Laboratory Results WBC 7.03 k/cumm (4.4-10.8) 06/01/19 06:45 RBC 3.84 m/cumm (4.00-5.20) L 06/01/19 06:45 Hgb 12.8 g/dL (12.0-15.5) 06/01/19 06:45 Hct 39.4 % (36.0-46.0) 06/01/19 06:45 MCV 102.6 fL (80-95) H 06/01/19 06:45 MCH 33.3 pg (27.0-33.0) H 06/01/19 06:45 MCHC 32.5 g/dL (32.0-36.0) 06/01/19 06:45 RDW 14.2 % (11.7-14.6) 06/01/19 06:45 Plt Count 162 x1000/uL (130-400) 06/01/19 06:45 MPV 10.5 fL (8.0-11.0) 06/01/19 06:45 Immature Gran % 0.1 06/01/19 06:45 72.4 06/01/19 06:45 Cancelled 05/24/19 04:55 14.2 06/01/19 06:45 Atypical Lymphs % Cancelled 05/24/19 04:55 7.3 06/01/19 06:45 5.7 06/01/19 06:45 0.3 06/01/19 06:45 Cancelled 05/24/19 04:55 Cancelled 05/24/19 04:55 Cancelled 05/24/19 04:55 Absolute Neutrophils 5.09 k/cumm (1.2-6.7) 06/01/19 06:45 Absolute Lymphocytes 1.00 k/cumm (1.2-3.4) L 06/01/19 06:45 Absolute Monocytes 0.51 k/cumm (0.11-0.7) 06/01/19 06:45 Absolute Eosinophils 0.40 k/cumm (0.0-0.7) 06/01/19 06:45 Absolute Basophils 0.02 k/cumm (0.0-0.2) 06/01/19 06:45 Nucleated RBCs Cancelled 05/24/19 04:55 Rbc morph reviewed 05/28/19 06:30 Cancelled 05/24/19 04:55 RBC Morphology See below 05/28/19 06:30 Present 05/28/19 06:30 1+ 05/28/19 06:30 Cancelled 05/24/19 04:55 Cancelled 05/24/19 04:55 1+ 05/28/19 06:30 Cancelled 05/24/19 04:55 2+ 05/28/19 06:30 Cancelled 05/24/19 04:55 Cancelled 05/24/19 04:55 Cancelled 05/24/19 04:55 Cancelled 05/24/19 04:55 Cancelled 05/24/19 04:55 Cancelled 05/24/19 04:55 Cancelled 05/24/19 04:55 Acanthocytes (Spur) Cancelled 05/24/19 04:55 Cancelled 05/24/19 04:55 PT 11.3 sec (9.3-11.0) H 05/24/19 06:15 INR 1.1 (0.9-1.1) 05/24/19 06:15 APTT 24.9 sec (21.0-31.4) 05/24/19 06:15 Sodium 139 mmol/L (136-145) 06/01/19 06:45 Potassium 4.2 mmol/L (3.5-5.1) 06/01/19 06:45 Chloride 104 mmol/L (98-107) 06/01/19 06:45 Carbon Dioxide 31.2 mmol/L (21.0-32.0) 06/01/19 06:45 3.8 mmol/L (3-11) 06/01/19 06:45 BUN 18 mg/dL (7-18) D 06/01/19 06:45 0.70 mg/dL (0.55-1.02) 06/01/19 06:45 >= 60.00 (mL/min/1.73m2) 06/01/19 06:45 Glucose 80 mg/dL (70-100) 06/01/19 06:45 1.4 mmol/l (0.6-1.4) 05/27/19 06:20 Calcium 8.2 mg/dL (8.5-10.1) L 06/01/19 06:45 Magnesium 1.6 mg/dL (1.8-2.4) L 06/01/19 06:45 0.5 mg/dL (0.2-1.0) 05/25/19 06:25 0.20 mg/dL (0.00-0.20) 05/25/19 06:25 AST 11 U/L (15-37) L 05/25/19 06:25 ALT 12 U/L (12-78) 05/25/19 06:25 124 U/L (46-116) H 05/25/19 06:25 < 0.05 ng/mL (0.00-0.06) 06/01/19 14:05 1.70 mg/dL (0.0-0.3) H 05/25/19 06:25 6.2 g/dL (6.4-8.2) L 05/25/19 06:25 2.3 g/dL (3.4-5.0) L 05/25/19 06:25 27 U/L (73-393) L 05/24/19 06:15 < 0.1 ng/mL 05/29/19 08:25 TSH 1.62 uIU/mL (0.36-3.74) 05/24/19 12:40 Free T4 1.38 ng/dL (0.76-1.46) 05/24/19 12:40 Yellow (Yellow) 05/24/19 03:25 Clear (Clear) 05/24/19 03:25 5.0 (5-8) 05/24/19 03:25 Ur Specific [place] 1.025 (1.005-1.025) 05/24/19 03:25 100 mg/dL (Negative) H 05/24/19 03:25 15 mg/dL (Negative) H 05/24/19 03:25 Small (Negative) H 05/24/19 03:25 Negative (Negative) 05/24/19 03:25 Small (Negative) H 05/24/19 03:25 0.2 EU/dL (Up TO 0.2) 05/24/19 03:25 Ur Leukocyte Esterase Small (Negative) H 05/24/19 03:25 0-2 (0-2) 05/24/19 03:25 5-10 HPF (0-5) 05/24/19 03:25 Ur Epithelial Cells Rare HPF (Negative) 05/24/19 03:25 Negative HPF (Negative) 05/24/19 03:25 Few HPF (Negative) 05/24/19 03:25 Negative LPF (Negative) 05/24/19 03:25 Negative (Negative) 05/24/19 03:25 Moderate yeast (Negative) 05/24/19 03:25 Ur Culture Indicated? Yes 05/24/19 03:25 Negative mg/dL (Negative) 05/24/19 03:25 Vancomycin Trough 24.4 ug/mL (10.0-20.0) H* 05/27/19 06:20
--- NOTE | 2019-06-01 17:48 | PDOC.CMPRO ---
Care Management Progress Note S/O: Prema continues to require emotional support, though has been appropriate and conversant. Placement continues to be sought for Prema as she is not safe to return home and no longer has housing. Anticipate when medically stable, Prema will transition to SWB2 until placement is identified, anticipate she will transfer to MED/SURG floor today. CM continues to follow. A:Prema is 63 year old female admitted with pneumonia currently being treated with IV antibiotics. 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 Prema will remain at [facility] until a bed for LTC is identified, CM will connect with local and out of county agencies to establish additional plan of AFC and [facility] waiver.
[2019-06-01] MEDS: Acetaminophen 325 MG TAB PO (18:01)
[2019-06-01 19:07] LABS: Troponin I < 0.05 ng/mL (0.00-0.06)
[2019-06-01] MEDS: clonazePAM 1 MG TAB 2 MG PO (19:40)
[2019-06-01] MEDS: Zolpidem 5 MG TAB PO (19:41)
[2019-06-01] MEDS: oxyCODONE 5 mg/Acetaminophen 325 mg TAB 1 TAB PO (19:41)
[2019-06-02] VITALS (9 sets, daily range): BP systolic 80–95; BP diastolic 50–72; PULSE 101–115; RESP 14–21; TEMP 35.5–37.5; O2SAT 94–100
[2019-06-02] MEDS: Heparin 5,000 UNITS/ML VIAL 5000 UNITS SC ×3 (00:28→14:54)
[2019-06-02 07:41] LABS: Anion Gap 5.5 mmol/L (3-11); BUN 22 mg/dL (7-18); CO2 29.5 mmol/L (21.0-32.0); CREATININE 0.74 mg/dL (0.55-1.02); Calcium 8.3 mg/dL (8.5-10.1); Chloride 104 mmol/L (98-107); Glucose 84 mg/dL (70-100); Magnesium 1.9 mg/dL (1.8-2.4); Potassium 4.6 mmol/L (3.5-5.1); Sodium 139 mmol/L (136-145)
[2019-06-02 07:42] LABS: Troponin I < 0.05 ng/mL (0.00-0.06)
[2019-06-02 07:46] LABS: Abs Immature Grans 0.01 k/cumm (0.0-0.09); Absolute Basophil Count 0.02 k/cumm (0.0-0.2); Absolute Eosinophil Count 0.36 k/cumm (0.0-0.7); Absolute Lymphocyte Count 0.78 k/cumm (1.2-3.4); Absolute Monocyte Count 0.49 k/cumm (0.11-0.7); Absolute Neutrophil Count 5.18 k/cumm (1.2-6.7); Basophils % 0.3; Eosinophils % 5.3; HCT 42.3 % (36.0-46.0); Immature Grans % 0.1; Lymphocytes % 11.4; Mean Corp. HGB Concentration 30.7 g/dL (32.0-36.0); Mean Corpuscular Hemoglobin 32.4 pg (27.0-33.0); Mean Corpuscular Volume 105.5 fL (80-95); Mean Platelet Volume 10.6 fL (8.0-11.0); Monocytes % 7.2; Neutrophils % 75.7; Platelet Count 137 x1000/uL (130-400); RBC 4.01 m/cumm (4.00-5.20); RBC Distribution Width 14.2 % (11.7-14.6); White Blood Cell Count 6.84 k/cumm (4.4-10.8)
[2019-06-02 08:26] LABS: Diff Comment RBC Morph Reviewed; Macrocytosis 2+
[2019-06-02] MEDS: Methylphenidate 10 MG TAB PO ×2 (09:10→14:55)
[2019-06-02] MEDS: Loperamide 2 MG CAP PO ×2 (09:10→14:55)
[2019-06-02] MEDS: Lactobacillus Acidophilus CAP 1 CAP PO ×2 (09:10→14:55)
[2019-06-02] MEDS: Anastrozole 1 MG TAB PO (09:10)
[2019-06-02] MEDS: Sertraline 50 MG TAB 100 MG PO (09:10)
[2019-06-02] MEDS: Glucosamine 500 MG CAP PO (09:10)
[2019-06-02] MEDS: Cyclobenzaprine 10 MG TAB 20 MG PO (09:10)
[2019-06-02] MEDS: Ascorbic Acid 500 MG TAB PO (09:11)
[2019-06-02] MEDS: Cyanocobalamin 100 MCG TABLET PO (09:11)
[2019-06-02] MEDS: Pantoprazole 40 MG TABCR PO (09:11)
[2019-06-02] MEDS: Ferrous Sulfate 325 MG TAB PO (09:11)
[2019-06-02] MEDS: Folic Acid 1 MG TAB 2 MG PO (09:11)
[2019-06-02] MEDS: Nystatin POWDER 60 GM JAR TP ×2 (09:12→14:55)
[2019-06-02] MEDS: Triamcinolone 0.1% CR 15 GM TUBE TP (09:12)
[2019-06-02] MEDS: Budesonide/Formoterol 160/4.5 6 GM 60 PUFF INH IH (10:00)
[2019-06-02] MEDS: Ergocalciferol 50000 UNITS CAP PO (10:03)
--- NOTE | 2019-06-02 13:49 | DSE_ITS ---
Date of service: 06/02/19 Time of Service: 13:50 DS: Diagnosis Discharge Diagnosis (1) Chest pain: Status: Acute (2) Tachycardia: Status: Acute (3) Sepsis: Status: Acute (4) HCAP (healthcare-associated pneumonia): Status: Acute Discharge Plan Disposition Patient Disposition: [facility] SWING BED LEVEL 2 Condition: Critical Discharge Details Chief Complaint: Abd Prob Clinical Impression: Sepsis, Hypotension, Abdominal pain, Acute kidney injury Reason For Visit: HCAP Admit Date/Time: 05/24/19 10:19 Admit Provider: Francheska Charles Attending Provider: Francheska Charles Primary Care Provider: Sera Gutiérrez ED Provider: Shade Saunders Hospital Course Hospital Course: Chief Complaint: HPI: 62 year old woman with a prior medical history of ascending cholangitis with septic shock s/p biliary drain that remains in place, admitted from [facility] Emergency Department on 05/24 with a diagnosis of Pneumonia. Ms. Watson has a history of Ascending Cholangitis, treated at [facility], with evidence of septic shock s/p biliary drain that still remains in place and was last changed on 04/28/2019. She also has a Past Medical History of Borderline Personality Disorder, Morbid Obesity, Breast Ca, CAD, COPD on Home O2, STACEY, PHTN with severe TR, Chronic Diastolic and Right sided CHF, and GERD. She has been noted to have PSVTs in the past, and has Paroxysmal Afib as a prior history as well, not anticoagulated. Patient presented to [facility] ED with complaints of nausea and vomiting, epigastric pain, and malaise, found to be hypotensive with imaging showing evidence of a right sided infiltrate. The CT of her chest and abdomen also showed a stable left pleural effusion, stable opacity in the left lung apex likely representing scarring, and stable fluid collect in the left chest wall. Her percutaneous biliary drain was noted to be stable in location. She was treated with aggressive IVFs and broad-spectrum antibiotics, and referred for admission. Since admission Ms. Watson has been persistently hypotensive, which is her norm. This persisted despite discontinuation of her BB therapy, and she actually received 2 rounds of pressor therapy. Her BB was resumed with improved HR control and stable blood pressures. She reported onset of 'chest pain' yesterday morning - nursing reports that patient has been in a supine position for the majority of her stay, and there was concern regarding possible GERD type symptoms. EKG was checked and essentially unchanged, and troponins were undetectable. Her antibiotics were discontinued on 05/29, and she remains afebrile and without leukocytosis. Her HR is vastly improved, although with BB held this morning with resultant mild tachycardia. Her hypotension remains unchanged. No overnight events reported. Hospital Course: (1) Chest pain: EKG Non-ischemic and essentially unchanged. Ruled out with serial cardiac biomarkers. Suspect non-cardiac etiology. (2) Tachycardia: History of both Paroxysmal Afib and SVTs - patient's blood pressure has been intolerant of resumption of BB therapy and required pressor support, with Metoprolol remaining on hold for some time. Diltiazem initiated and titrate carefully without any change in tachycardia. EKGs reviewed, and case discussed in great length with Cardiology. Tachycardia appears to be sinus, but patient has history of PAF/PSVTs by monitors in the past as well. - Afebrile, and infection appears treated. - Did not initially appear to be volume depleted - has had negative I/O's for 4 days, but is overall net positive approximately 5 L since admission. Labs did not seem to indicate intravascular depletion, but with elevating BUN this morning - will administer 1 bag of NS. - No evidence of anemia, not hypoxic, and not complaining of pain. - TSH checked and normal. - No evidence or history of left sided CHF - patient does have a history of RV dysfunction and PHTN however. Ms. Watson does have hypotension, but this appears to be a chronic findings. She also has anxiety, and takes stimulant therapy (Methylphenidate) chronically and not interested in discontinuation. Doubt PE as she has been maintained on chemical DVT prophylaxis. Also doubt Pheochromocytoma as there have been no associated headache, diaphoresis, or hypertension reported. Persistent tachycardia may also represent Dysautonomia vs. compensatory for chronically low blood pressure. - Obvious concern here is for a tachy mediated cardiomyopathy in the future without appropriate rate control, and patient also has a history of SVTs and PAF and needs a willian agent on board. Her HR has improved substantially with reinitiation of BB without significant change in her blood pressure. If needed, consider initiation of Midodrine to help with hypotension. (3) Sepsis: Diagnosis of sepsis based on initial presentation with Leukocytosis, Tachycardia (although with chronicity to this), [place], and elevated Lactic Acid. Patient was afebrile however. Etiology presumed secondary to Pulmonary Source for infection. - Blood Cultures from 05/24 & 05/26 remain negative (1 bottle with likely contaminant). - Urinalysis not overtly convincing for UTI, with cultures showing <100,000 CFU of VRE, clinically asymptomatic. Very likely colonization. Patient did receive 3 days of Linezolid. - Patient received a total of 4 days of Vancomycin, 3 days of Linezolid, and 5 days of Aztreonam. Procalcitonin decreased from 0.4 to undetectable, and antibiotics were discontinued. - Sepsis appears resolved. Patient is chronically hypotensive and tachycardic as above, both appear chronic. No fever and lack of leukocytosis, and patient appears non-toxic. Continue to hold off on further antibiotics. (4) HCAP (healthcare-associated pneumonia): Treatment as above. Sputum culture + for MSSA. (5) STACEY (obstructive sleep apnea): Continue CPAP. (6) Right heart failure with reduced right ventricular function: Noted. Monitor volume status. (7) Depression: History of Anxiety, Depression, and Borderline Personality Disorder. Continue home regimen of Clonazepam, resume SSRI. Discontinue prn Lorazepam. (8) DVT prophylaxis: Heparin SC. (9) Disposition: Due to lack of safe discharge planning (barriers in placement) patient is being transitioned to Swing Bed status. Home Meds and New Rx's Prescriptions: No Action clonazepam 1 MG tablet,disintegrating 2 tab PO HS RF: 0 ipratropium-albuterol 3 ML solution for nebulization 3 ml Inhalation QID RF: 0 pantoprazole 40 MG tablet,delayed release (DR/EC) 40 mg PO DAILY RF: 0 cyclobenzaprine 10 MG tablet 20 mg PO BID RF: 0 Advair HFA 60 PUFF HFA aerosol inhaler 2 puff Inhalation BID RF: 0 anastrozole [Arimidex] 1 MG tablet 1 mg PO DAILY RF: 0 glucosamine sulfate 2KCl 1,000 MG tablet 500 mg PO BID RF: 0 Atrovent HFA 17 mcg/actuation Hfa Aerosol Inhaler 2 puff INHALATION TID RF: 0 methylphenidate HCl [Ritalin] 10 mg Tablet 10 mg PO DIRECTED RF: 0 loperamide 2 mg Tablet 2 mg PO TID PRN PRN (Reason: Diarrhea) RF: 0 oxycodone-acetaminophen [Percocet] 5-325 mg Tablet 1 tab PO Q6H PRN PRNRF: 0 ferrous sulfate 325 mg (65 mg iron) Tablet 325 mg PO DAILY RF: 0 cyanocobalamin (vitamin B-12) [Vitamin B-12] 100 MCG tablet 100 mcg PO DAILY RF: 0 ergocalciferol (vitamin D2) [Vitamin D2] 50,000 UNITS capsule 50,000 units PO DIRECTED RF: 0 metoprolol tartrate 25 mg Tablet 25 mg PO TID RF: 0 sennosides [senna] 8.6 mg Tablet 17.2 mg PO DAILY RF: 0 sertraline 100 mg Tablet 100 mg PO DAILY RF: 0 nitroglycerin [Nitrostat] 0.4 mg Tablet, Sublingual 0.4 mg sublingual .Q 5 MIN PRN CP PRN (Reason: chest pain) RF: 0 folic acid 1 mg Tablet 2 mg PO DAILY RF: 0 zolpidem 5 mg Tablet 5 mg PO HS RF: 0 nystatin 100,000 unit/gram Powder See Rx Instructions .ROUTE .COMPLEX RF: 0 albuterol sulfate [ProAir HFA] 90 mcg/actuation Hfa Aerosol Inhaler 2 puff INHALATION Q4H PRN PRN (Reason: Shortness Of Breath) RF: 0 ketoconazole 2 % Cream See Rx Instructions .ROUTE .COMPLEX RF: 0 calcium carbonate-vitamin D3 600 mg(1,500mg) -400 unit Tablet 1 tab PO DAILY RF: 0 Biofreeze (menthol) 4 % Gel See Rx Instructions .ROUTE .COMPLEX PRN (Reason: Pain) RF: 0 Discharge Instructions Activity:: As per PT recommendations Equipment/Supplies:: No Equipment Needed Diet:: Low Sodium Discharge Orders Discharge Orders: Discharge Order (Routine); Ordered 06/02/19 Ordered By: Seven Wells DS: Data Vitals/I&O Vitals and I&O: Vital Signs Temperature 37.5 C 06/02/19 11:00 Temperature Source Tympanic 06/02/19 11:00 Pulse 105 H 06/02/19 11:00 Pulse Rhythm Regular 06/02/19 09:21 Pulse 87 06/01/19 18:18 Respiratory Rate 19 06/02/19 11:00 Respiratory Effort 06/02/19 09:21 Respiratory Depth Shallow 06/02/19 09:21 Respiratory Pattern Normal 06/02/19 09:21 Blood Pressure 89/60 L 06/02/19 11:00 Blood Pressure Mean 70 06/01/19 17:00 Blood Pressure Position Supine 06/01/19 04:00 Pulse Oximetry 97 06/02/19 11:00 Oxygen Delivery Method Nasal Cannula 06/02/19 11:00 Oxygen Flow Rate 2 06/02/19 11:00 Fraction of Inspired Oxygen (FIO2) 21 05/26/19 13:00 Pain Level 0 06/02/19 11:00 Comment 05/31/19 02:00 Intake & Output 06/01/19 06/02/19 06/02/19 23:59 11:59 23:59 Intake Total 90 / 90 250 / 640 390 / 640 Output Total 1250 / 2100 2049 / 2049 Balance -1160 / -2010 -1800 / -1410 390 / -1410 Weight 110.7 kg Intake: IV 90 / 90 Oral 250 / 640 390 / 640 Output: Drainage 175 / 175 275 / 275 R abdomen biliary drain 175 / 175 275 / 275 Urine 1075 / 1925 1775 / 1775 Other: Urine Color Straw Pale Yellow Straw Urine Appearance Clear Sediment Comment Pt has arndt in place Stool Size Moderate Stool Characteristics Soft Formed Brown Completed studies during hospitalization [Text1]: Exam(s) 05/24/[address]:CT chest/abd/pel wo SYMPTOMS/DIAGNOSIS: UPPER ABD PAIN, ? ACUTE PROCESS, H/O BILIARY DRAIN CT SCAN OF THE CHEST, ABDOMEN AND PELVIS: Noncontrast examination was performed. Comparisons are 04/26/18 and 05/18/19. CT SCAN OF THE ABDOMEN AND PELVIS: The percutaneous biliary drain is in place. A pigtail catheter is seen in the duodenum, unchanged in position. The unenhanced liver is grossly unremarkable. The patient is status post cholecystectomy. There is no biliary ductal dilatation. There is fatty atrophy of the pancreas which is otherwise unremarkable. The spleen and adrenal glands are unremarkable. Incidental note is made of an accessory spleen. The kidneys show no evidence of hydronephrosis. There are nonobstructing stones seen in the superior pole of the right kidney. The urinary bladder is intact. The reproductive organs are unremarkable as visualized. There is atherosclerosis of the abdominal aorta but no aneurysmal dilatation is present. There has been interval placement of a central venous catheter via the left femoral approach. The significant abdominal or pelvic adenopathy, ascites or pneumoperitoneum is present. There is again diastasis of the anterior abdominal wall containing an unremarkable loop of small bowel. There are post surgical changes of a prior gastric bypass surgery. In the right lower quadrant there are post surgical changes of a prior small bowel resection and anastomosis. There is mild thickening of the wall of the small bowel in this region but no evidence to suggest obstruction. The degree of small bowel thickening may be slightly increased compared to the prior examination but this may be due to underdistention of the bowel. There is a linear area of sclerosis seen in the right femoral neck. This was present on the prior examination. IMPRESSION: 1. No evidence of bowel obstruction or free fluid in the abdomen or pelvis. 2. Stable location of the percutaneous biliary drain. 3. Status post gastric bypass. 4. Status post small bowel resection with anastomosis in the right lower quadrant. No evidence of obstruction. 5. Interval placement of a central venous catheter via the left femoral approach. Infiltration of the adjacent soft tissues is noted. These may be post procedural changes. No focal fluid collection is seen to suggest an abscess. 6. Linear sclerosis seen in the right femoral neck. CT SCAN OF THE CHEST: The thoracic aorta is intact and normal in caliber. There is mild cardiomegaly. No significant pericardial effusion is seen. No significant thoracic adenopathy is present. The fluid collection seen in the left lower quadrant is unchanged compared to 04/26/18. There is a right basilar infiltrate which may represent atelectasis or pneumonia. The area of scarring in the left lung apex is unchanged compared to 04/26/18. This may represent scarring. No other infiltrates are appreciated. The fluid collection in the subcutaneous tissues overlying the left chest wall is stable. No acute osseous abnormality is identified. IMPRESSION: 1. Stable left pleural effusion with pleural thickening. 2. Stable opacity in the left lung apex, unchanged since 04/26/18. This may r epresent an area of scarring. 3. Right basilar infiltrate which may represent atelectasis or pneumonia. 4. Stable fluid collection in the soft tissues overlying the left chest wall. Exam(s) 05/27/2019 a RAD:XR portable chest AP SYMPTOM/DIAGNOSIS: FOLLOW UP PNEUONIA UPRIGHT AP CHEST: The lungs are free of gross infiltrate. There is no pleural effusion. The heart is top limits of normal in size. SUMMARY: No evidence of acute cardiopulmonary disease. Labs on day of discharge: Labs from last 24 hours 06/02/19 06/02/19 06/01/19 06:37 06:37 18:30 WBC 6.84 RBC 4.01 Hgb 13.0 Hct 42.3 MCV 105.5 H MCH 32.4 MCHC 30.7 L RDW 14.2 Plt Count 137 MPV 10.6 Immature Gran % 0.1 Neutrophils % 75.7 Lymphocytes % 11.4 Monocytes % 7.2 Eosinophils % 5.3 Basophils % 0.3 Absolute Neutrophils 5.18 Absolute Lymphocytes 0.78 L Absolute Monocytes 0.49 Absolute Eosinophils 0.36 Absolute Basophils 0.02 Differential Comment Rbc morph reviewed RBC Morphology See below Macrocytosis 2+ Sodium 139 Potassium 4.6 Chloride 104 Carbon Dioxide 29.5 Anion Gap 5.5 BUN 22 H Creatinine 0.74 Estimated GFR/1.73 m2 >= 60.00 Glucose 84 Calcium 8.3 L Magnesium 1.9 Troponin I < 0.05 < 0.05 06/01/19 14:05 WBC RBC Hgb Hct MCV MCH MCHC RDW Plt Count MPV Immature Gran % Neutrophils % Lymphocytes % Monocytes % Eosinophils % Basophils % Absolute Neutrophils Absolute Lymphocytes Absolute Monocytes Absolute Eosinophils Absolute Basophils Differential Comment RBC Morphology Macrocytosis Sodium Potassium Chloride Carbon Dioxide Anion Gap BUN Creatinine Estimated GFR/1.73 m2 Glucose Calcium Magnesium Troponin I < 0.05 [facility] Medical History ADD (attention deficit disorder) Angina at rest Anxiety (Chronic) Asthma Atrial fibrillation (Chronic) Atrial fibrillation Bilateral cataracts (Chronic) Breast cancer Chest pain, atypical Chronic back pain (Chronic) Chronic pain Chronic rhinitis Cirrhosis of liver Compression fracture of spine Decreased visual acuity Depression (Chronic) Depression Diastolic heart failure (Chronic) Diastolic heart failure DJD (degenerative joint disease) (Chronic) Gastric bypass status for obesity GI (gastrointestinal bleed) Goals of care, counseling/discussion (Acute) History of DVD (Chronic) History of paroxysmal supraventricular tachycardia History of PSVT (paroxysmal supraventricular tachycardia) (Chronic) Hx of deep venous thrombosis Hyperparathyroidism , secondary, non-renal Hypertension IBS (irritable bowel syndrome) Illiterate (Acute) Insomnia Morbid obesity Morbid obesity with BMI of 45.0-49.9, adult (Chronic) STACEY (obstructive sleep apnea) (Chronic) STACEY (obstructive sleep apnea) Osteoarthritis Osteopenia Oxygen dependent Paroxysmal atrial fibrillation (Chronic) PUD (peptic ulcer disease) Pulmonary HTN Right heart failure with reduced right ventricular function (Chronic) Superficial thrombophlebitis Tricuspid regurgitation Surgical History Breast, Mastectomy EGD - MAC Gastric Bypass History of biliary T-tube placement (Resolved 09/01/18) Family History Mother COPD (chronic obstructive pulmonary disease) Father Glioblastoma Son No problems noted. Son Bipolar 1 disorder ADHD Diabetes Social History Smoking/Tobacco Use Status: Former Tobacco Use Second Hand Exposure: No Alcohol Intake: never Drug use: Never Substance use type: does not use Caregiver/Support person: No Household members: none Housing: apartment Number of Children: 2 number of grandchildren: 1 Communication Needs: Cannot Read Education Level: middle school Do you need help understanding health information?: Always Do you feel safe at home: Yes Do you feel safe in your relationship?: Yes
[2019-06-02] MEDS: Metoprolol 25 MG TAB PO (14:55)
[2019-06-02] MEDS: Normal Saline Flush 10 ML SYR IVP (14:59)
[2019-06-02] MEDS: Normal Saline 1,000 ML 125 ML IV (15:02)
--- NOTE | 2019-06-02 19:16 | PDOC.CMPRO ---
- If Service Date Differs Date of service: 06/02/19 Time of Service: 19:16 Care Management Progress Note S/O: Prema transition to SB2 today while awaiting LTC placement. Several referrals are pending awaiting review and bed offer. A: Prema is a 63 year old female transitioning to SB2 awaiting placement as she is not able to care for herself at home. P: CM to continue to provide support LTC placement. She will transition to SB2 today awaiting transition. Prema agrees with the plan and will await bed offer.
== END 2019-06-02 15:13 | disposition swing bed (61) | DRG 871 ==
LOC: ER 10:48 → ICU 11:40 → MS 06-02 14:02 → ICU 06-03 11:27
PROVIDERS: Physician Assistant; Admitting Provider Internal Medicine; Emergency Provider Emergency Medicine; PCP Family Medicine; Visit Provider Internal Medicine
DX: A41.9 Sepsis, unspecified organism (principal); J15.211 Pneumonia due to Methicillin susceptible Staphylococcus aureus; I47.1 Supraventricular tachycardia; N17.9 Acute kidney failure, unspecified; I50.32 Chronic diastolic (congestive) heart failure; J96.11 Chronic respiratory failure with hypoxia; Z68.41 Body mass index [BMI] 40.0-44.9, adult; Y95 Nosocomial condition; I95.9 Hypotension, unspecified; R07.9 Chest pain, unspecified; K21.9 Gastro-esophageal reflux disease without esophagitis; F41.9 Anxiety disorder, unspecified; G47.33 Obstructive sleep apnea (adult) (pediatric); R33.9 Retention of urine, unspecified; I50.814 Right heart failure due to left heart failure; F32.9 Major depressive disorder, single episode, unspecified; F60.3 Borderline personality disorder; Z45.2 Encounter for adjustment and management of vascular access device; E86.0 Dehydration; N18.9 Chronic kidney disease, unspecified; Z99.81 Dependence on supplemental oxygen; Z55.0 Illiteracy and low-level literacy
CPT/HCPCS: 36415; 36556; 36591; 36592; 71250; 76942; 80048; 80053; 80076; 83690; 84145; 87040; 87077; 93005; 94640; 96361; 96365; 96368; 96375; 97163; 97167; 97530; 97535; 99223; 99231; 99232; 99233; 99239; 99253; 99285; 71045; 74176; 80202; 81003; 81015; 83605; 83735; 84439; 84443; 84484; 85025; 85610; 85730; 86140; 87070; 87086; 87186; 87205; 87324; 93010; J0153; J1160; J1644; J2020; J2997; J3370; J3475; J3490; J7620

== ENCOUNTER 2019-06-02 14:15 | Inpatient (IN) | payer MEDICAID, SELFPAY ==
--- NOTE | 2019-06-02 14:08 | PHARADMIT ---
Addendum entered by Tran Farr 09/25/19 13:53: Urine culture pending, urinalysis shows positive Nitrites/Leukocytes, cloudy.....received Fosfomycin sachet x 1 dose today Discharge Friday to new apartment with services/meals Addendum entered by Holly Dailey 09/24/19 08:55: VS okay (error on BP entered), no labs nothing new per morning report no med changes plan is discharge Thursday 09/27 per CM Addendum entered by Holly Dailey 09/23/19 11:11: VS okay, no labs nothing new per morning report no med changes plan is discharge Thursday 09/27 per CM Addendum entered by Holly Dailey 09/20/19 11:41: VS okay, no labs nothing new per morning report no med changes Addendum entered by Marilyn Lange 09/18/19 13:56: nothing new per morning meeting no med changes noted Addendum entered by Raffaele Fernando III 09/17/19 16:55: BP-94/61 Pain:06/05 No Labs BM yesterday Patient asked MD to increase her Ritalin, not sure... MD noted that there was no blood in T-Tube (perhaps bile) No changes yet today. Addendum entered by Holly Dailey 09/16/19 16:56: BP-95/56 other VS okay nursing reported pt thinks there is blood in T-tube and wants the MD to look at it no med changes Addendum entered by Tran Farr 09/14/19 17:08: Is/was supposed to meet housing today/tomorrow to complete contract Discharge date 09/26/19 Addendum entered by Raffaele Fernando III 09/13/19 14:43: VS-OK No Labs. Plan is for Sep 26 discharge Addendum entered by Holly Dailey 09/11/19 11:53: VS okay no labs pt moved rooms yesterday so could have a room with toilet to work on transfers per morning report plan is to discharge home September 26 per CM as pt has found a new apartment no med changes Addendum entered by Raffaele Fernando III 09/09/19 11:45: VS-OK Pain: 06/05 No med changes Addendum entered by Holly Dailey 09/06/19 10:49: VS okay no labs nothing new per morning report no med changes Addendum entered by Raffaele Fernando III 09/04/19 12:12: No VS, No Labs, Pain: 8/10.. C-diff negative po ABX DC'd Possible new lead on arranging an apartment. Addendum entered by Holly Dailey 09/03/19 14:22: no VS or labs C.diff PCR was negative so vanco and metronidazole both discontinued Addendum entered by Holly Dailey 08/30/19 11:05: continues to have some liquid stool (some may be do to pt's diet) per nursing report VS okay no labs PO vanco and metronidazole continued (last dose am dose 08/02, flagyl restarted in the afternoon on 08/23) no med changes Addendum entered by Tran Farr 08/29/19 15:04: some behavior issues the last few days Did refuse one dose of oral Vanco yesterday Did take Metronidazole Total course is x 10 days from re-start of Flagyl on 08/23 (there was a lapse in coverage)....end date: 09/01/19, double check please Addendum entered by Holly Dailey 08/27/19 12:27: nothing new per morning report VS okay no labs PO vanco (day 11) and metronidazole (day 5) continue no med changes Addendum entered by Raffaele Fernando III 08/26/19 13:33: VS-OK BP-89/51 No Labs, Pain 0/10 on PO Vancomycin & Metronidazole Addendum entered by Holly Dailey 08/23/19 14:00: VS okay no labs pain 10/10 PO metronidazole restarted today Addendum entered by Marilyn Lange 08/22/19 13:45: nothing new reported stopped metronidazole and continues vanco PO for CDiff treatment that is not severe Addendum entered by Raffaele Fernando III 08/20/19 12:33: Refused ABX this morning, taking them now. VS-OK Pain:3/10 Joseph payne'd No changes Addendum entered by Tran Farr 08/17/19 15:22: C.Diff Antigen positive, PCR pending, starting oral Vanco and Metronidazole (scheduling meds is a challenge on the DEC due to potential absorption problems) Addendum entered by Tran Farr 08/17/19 12:55: Med changes: Change Lactobacillis to higher dose Protonix changed to Pepcid Adding Questran d/c Senna and Loperamide has been refusing some Meropenem doses...doc wants it to continue Application for housing in [facility] may be done today Addendum entered by Holly Dailey 08/13/19 12:03: pt has another UTI per morning report BP-85/50 other VS okay WBC-12.46(down) fosfomycin X1 dose given last night, meropenem started, orders for ortho knee injection also ordered (have not been given yet) Addendum entered by Holly Dailey 08/09/19 10:55: nothing new per morning report BP-97/52 other VS okay no labs no med changes Addendum entered by Raffaele Fernando III 08/08/19 12:08: BP-100/64 HR-74 Pain:05/05 No changes Addendum entered by Raffaele Fernando III 08/07/19 12:52: BP-94/55 HR-76 pAIN: No changes Addendum entered by Raffaele Fernando III 08/06/19 10:55: CM notes that [facility] has a caare manager agriculture that will be following her once housing is established. Awaiting placement in community. No VS yet today, pAIN:08/05 No Labs No med changes Addendum entered by Holly Dailey 08/02/19 11:44: Pt has been participating in self care activities per nursing note CM working on housing applications per morning report BP-95-59 HR-55 other VS okay, no labs no med changes Addendum entered by Holly Dailey 07/30/19 10:28: possible PT/OT referrals again? as pt is working on trying to be more independent for a possible discharge to home per morning report BP-91/58 other VS okay, no labs no med changes Addendum entered by Holly Dailey 07/29/19 11:43: RR-okay no other VS yet; weight-105 kg(up) no labs no med changes Addendum entered by Holly Dailey 07/28/19 11:43: nothing new per morning report VS- okay no labs no med changes Addendum entered by [facility] 07/26/19 09:36: BP-102/58 HR-69 No Labs CM [facility] have [facility] through. Home declined patient. To remain here indefinitely Addendum entered by [facility] 07/25/19 10:22: BP-92/63 HR-73 No Labs No changes Addendum entered by [facility] 07/24/19 12:51: CEFUROXIME DC'D, o other changes BP-102/64 HR-67 No Labs Addendum entered by [employer] 07/23/19 13:13: Patient to be discharged to [facility], posibly next week. [facility] caregiver to come Friday to see what is needed . BP-87/53 HR-65 No Labs Cefuromie PO continues Addendum entered by Holly Dailey 07/20/19 11:10: Pt. visited [facility] yesterday and liked it there per morning report BP-91/58 other VS okay ceftriaxone changed to cefuroxime yesterday for UTI Addendum entered by [employer] 07/15/19 13:13: BP-91/58 No Labs Pain:810 MD to schedule APAP to help relieve pain with more consistent regimen. No prn dosess. Urine came back positive for e-coli, MD started MacroBid, for a longer course of therapy. worried about C-difff Addendum entered by Tran Farr 07/12/19 16:12: Percocet 5/325mg changed to OxyIR 5-10mg equivalent, APAP prn order dc'd Addendum entered by [employer] 07/11/19 11:53: MacroBid completed and dc'd APAP 4,550mg/24hrs, from Percocet & APAP prn orders. aware and will change Percocet to straight Oxycodone. VS-OK No LABS No other changes Addendum entered by [employer] 07/10/19 10:53: VS-OK No Labs, MacroBid continues. No changes Addendum entered by [employer] 07/09/19 11:30: Pharmacy Note Subjective No new reports from MD or CM Objective VS-OK No Labs Assessment E.coli sensitive to MacroBID Plan Awaiting placement Addendum entered by Tran Farr 07/06/19 15:08: Pharmacy Note Subjective Objective Pain 10/10, Afebrile, Urine cloudy with increased frequency Urinalysis shows + Protein and Nitrites Assessment starting Macrobid for UTI Percocet increased from 1 tab to 1-2 tabs Plan assisted placement being seeked Addendum entered by [employer] 07/01/19 10:24: CM CONTINUE SEARCH FOR LONG-TERM PLACEMENT. VS-OK No Labs No med changes Addendum entered by [employer] 06/30/19 10:47: Pharmacy Note Subjective No changes Objective BP-90/59 VS-OK No Labs Assessment No Meds changes Plan No new MD or CM notes Addendum entered by Holly Dailey 06/25/19 12:09: Pharmacy Note Subjective MD has not seen [facility] report of biliary drain replacement yet. Objective Bp-88/62 other VS okay pain-10/10 no labs Assessment -it has been 14 days since linezolid was discontinued; sertraline, cyclobenzaprine and methylphenidate reinitiated at lower doses (plan is to titrate back up) -of note pt's heart rate has been much better since discontinuing the methylphenidate Plan CM still working on placement, meeting with [facility] today to see if they can help with placement Addendum entered by [employer] 06/24/19 12:04: Pharmacy Note Subjective Patient was at [facility] for biliary drain replacement. MD has not seen [facility] report of procedure yet. Objective VS-OK pain:7/10 No Labs, Last BM 06/23 Assessment MD plans to back off pain meds to earlier level. Plan No changes have been made yet. Addendum entered by Holly Dailey 06/21/19 11:44: Pharmacy Note Subjective pt complaining of increased pain, and questioned if CPAP is working per nursing report nursing note reports pt's right side distended in comparison to last week and the tube has moved (based on suture location) Objective BP-93/64 HR-97 other VS okay pain-10/10 labs okay Assessment RT was going to look at pt's CPAP pt has PRN meds ordered for pain control (acetaminophen, oxycodone/APAP) no med changes so far today Plan pt scheduled for drain interrogation by [facility] IR Friday morning per nursing note may change to acute status for symptom manangement until then? Addendum entered by Holly Dailey 06/20/19 10:50: Pharmacy Note Subjective pt complaining of right sided abdominal pain past 2 nights per morning report Objective BP-98/68 other VS okay no labs Assessment no med changes so far today Plan flush biliary drain to see if helps with abdominal pain per morning report Addendum entered by Holly Dailey 06/19/19 09:30: Pharmacy Note Subjective pt went out on pass yesterday per morning report Objective BP-92/53 other VS okay no labs Assessment cefepime discontinued arndt taken out yesterday Plan CM looking for placement, question if pt could go to an assisted living facility since she can do transfers on her own Addendum entered by Raffaele Fernando III 06/18/19 09:15: Pharmacy Note Subjective No changes Objective BP-98/62 Assessment Cefepime continues at this time Plan CM looking for placement, have extended their search. Addendum entered by Holly Dailey 06/17/19 10:46: Pharmacy Note Subjective nothing new per morning report Objective BP-89/56 HR-59 no labs Assessment cefepime day 06/05 per MD no med changes Plan care management still working on placement Addendum entered by Lindsay Mancilla 06/15/19 16:45: Pharmacy Note Subjective Patent refused removal of arndt catheter on 06/14 Objective BP 98/5, afebrile Assessment Pt is not a good candidate for chronic indwelling due to high infection rates with MDR pathogens and multiple abx allergies Plan Care management to continue to seek appropriate placement Addendum entered by Tran Farr 06/13/19 13:09: Pharmacy Note Subjective Lost IV access yesterday but Anbx coverage not interrupted Objective BP soft 95/56, Afebrile Assessment day#4 Cefepime of 7 day therapy no med changes today midday Metoprolol dose held due to soft BP Plan Plan to restart Sertraline, Flexeril, Ritalin after washout period from Zyvox working w/PT Care management meeting Friday as mentioned below Addendum entered by Tran Farr 06/12/19 11:10: Pharmacy Note Subjective Swingbed patient, ESBL in Urine-off cntact precautions per infect.disease/CM, has permanent biliary drain Objective VS ok Assessment no med changes at this time Continues on Cefepime day#3 and will need one week of therapy Sertraline remains on hold due to Intxn w/previous Zyvox therapy and washout period-MD very aware Plan Care Managers have family meeting Friday, 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, 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 Uptodate recommends to have wash out of cyclobenzaprine and sertraline prior to starting linezolid prior to starting linezolid (MD aware). Sertraline may be resumed 24 hours after the last dose of linezolid; its recommended to have 14 day wash out period before restarting cyclobenzaprine and methylphenidate. Addendum entered by Holly Dailey 06/07/19 11:07: BP was 73/48 at 0730 this morning (the 0400 dose of metoprolol was held), most recently was BP was 82/60; HR-115 Bolus of IV fluids ordered, urinalysis ordered as urine was cloudy and had sediment per nursing report Addendum entered by Raffaele Fernando III 06/05/19 09:38: VS-OK No Labs No Med changes. CM note that there are placement issues for this patient, She has been refused by most if not all area SNFs due to previous encounters. Addendum entered by Raffaele Fernando III 06/03/19 10:44: SWING BED II VS-OK No Labs Wgt-106.7 kg No Med changes, No new MD or CM notes Original Note: Admission Pharmacy Clinical Review swing bed level II below is the previous Pharmacy Clinical Interventions: CHANTELLE DAIGLE Female : 1955 Emr# [id number] 05/25/19 11:56 - Pharmacy Review by Raffaele Fernando III [facility] Num: [id number] : 1955 Patient Age: 63 Addendum entered by Raffaele Fernando III 06/02/19 14:07: Patient transferring to Swing Bed level II today. Addendum entered by Holly Dailey 05/31/19 13:57: Pharmacy Note Subjective HR still elevated even when sleeping per morning report Objective BP 90/58 HR-113 mag-1.8 Assessment diltiazem discontinued- was titrated carefully with no change in tachycardia metoprolol restarted- monitor BP and HR carefully PO mag replacement given Plan continue to watch BP and HR Addendum entered by Raffaele Fernando III 05/28/19 10:41: Pharmacy Note Subjective ABX changed to Linezolid and Aztreonam. BP have improved today. Objective VS-OK BP-120/78 HR-97 Mag-1.6 H&H,Plts,SCr,WBC-stable. Wgt-107.3 kg Assessment Blood culture no growth/72hrs, Plan Patient is unable to care for self and will require placement. She has not been accepted at local SNF's due to prior experiences, (does not play well) and CM far she may be with us for an extended period. Addendum entered by Lindsay Mancilla 05/27/19 09:26: Pharmacy Note Subjective Hypotensive episode overnight requiring a Norepi drip to be started - was not responsive to IV fluids Objective BP 68/50, HR 86, Mg 1.7, WBC 3.35 , H/H 35.6/10.7, Blood culture - no growth past 48 hrs Assessment Reason for drop in BP is unclear, possibly too much of a beta blockade Plan Continue titrating Norepi drip, DC metoprolol, abx continue for HCAP Original Note: Admission Pharmacy Clinical Review HCAP Code Status DNI Current Weight Wgt-106 kg Renally Cleared and Narrow Therapeutic Index Meds CrCl~ 54.6 mL/min Meds-OK QTc Value / Action Taken QTc-482 (Sertraline, Immodium, Flagyl, Protonix,) BP Control, Fever BP- 98/74 Tmax- 37C Electrolytes reviewed Na-141 K+3.6 Mag-2.0 DVT Prophylaxis Heparin SC Opiate Usage / Scheduled Bowel Regimen Ordered Yes Yes Plt/SCr for Heparin / Enoxaparin Plts-144 SCr-0.86 (was 2.62) INR for Warfarin inr-1.1 H/H stable, WBC/Bands H&H- 13.9/42.7 WBC- 7.85 Antibiotic appropriateness Aztreonam, Vancomycin, Flagyl Cultures and Sensitivities Blood- Urine-Pending Surgical ABX d/c within 24 hr NA DM control / Insulin Dosing BG-104 Heart Failure (Check EF%) (TIM's, B-Block, Diuretics) Lopresspr, IV to PO Switch No Home Meds Reviewed Yes Home Meds Not Ordered Rodrick Muhammad-(TherSubst), Comments R-CRP- 1.70 Initialized on 05/25/19 11:56 - END OF NOTE
--- NOTE | 2019-06-02 15:41 | NUR.NOTE ---
Pt changed to swing bed status, see inpt chart for full charted assessment.
--- NOTE | 2019-06-02 16:41 | NUR.NOTE ---
I was asked to go see Prema in her room to exam the knot of hair in the back of her head and the skin surrounding it. Pt had a palpable soft baseball size in diameter john of hair. Pt's skin surrounding this is well intact without any signs of irritation. Pt's friends present in the room, including a friend named Ester. Prema smiling slightly stating she trusts Ester with everything. Ester was standing by Prema trimming her hair with scissors. Prema stated I think the john has to be cut out. I told Prema I would check with Dr. Wells and let him know about the situation with her hair and ask him if her friend or her primary RN could could clip the jonh out of her hair. Dr Wells was updated immediately after I departed Prema's room, I informed Dr. Wells of the situation as noted above, I also made him aware that Prema stated her head hurt. Dr Wells responded with a yes, he did not mind if Prema had her hair clipped to remove the hair knot. Prema was informed. Prema had her friend Ester clip and trim her hair. The hair knot was completely removed. Prema's hair trim came out nice looking to my eyes. Prema expressed she was happy with the results also. She said her head felt better. Prema's skin on her head was examined again closely with a flash light, no irritation detected, skin completely intact. Ester was thanked for the help she gave her friend by myself, her primary RN and Prema herself.
[2019-06-02] MEDS: Acetaminophen 325 MG TAB PO (17:12)
[2019-06-02 20:00] VITALS: BP 89/62; PULSE 95; RESP 16; TEMP 35.5; O2SAT 96
[2019-06-02] MEDS: Loperamide 2 MG CAP PO (20:31)
[2019-06-02] MEDS: Glucosamine 500 MG CAP PO (20:31)
[2019-06-02] MEDS: Budesonide/Formoterol 160/4.5 6 GM 60 PUFF INH IH (20:31)
[2019-06-02] MEDS: oxyCODONE 5 mg/Acetaminophen 325 mg TAB 1 TAB PO (20:32)
[2019-06-02] MEDS: Ascorbic Acid 500 MG TAB PO (20:32)
[2019-06-02] MEDS: Lactobacillus Acidophilus CAP 1 CAP PO (20:32)
[2019-06-02] MEDS: Cyclobenzaprine 10 MG TAB 20 MG PO (20:33)
[2019-06-02] MEDS: Nystatin POWDER 60 GM JAR TP (20:33)
[2019-06-02] MEDS: Triamcinolone 0.1% CR 15 GM TUBE TP (20:36)
[2019-06-02] MEDS: Metoprolol 25 MG TAB PO (21:38)
[2019-06-02] MEDS: clonazePAM 1 MG TAB 2 MG PO (21:38)
[2019-06-02] MEDS: Zolpidem 5 MG TAB PO (21:38)
[2019-06-03] MEDS: Heparin 5,000 UNITS/ML VIAL 5000 UNITS SC ×3 (00:22→15:30)
[2019-06-03 07:25] VITALS: BP 101/60; PULSE 95; RESP 20; TEMP 36.2; O2SAT 95
[2019-06-03] MEDS: Methylphenidate 10 MG TAB PO ×2 (08:52→14:34)
[2019-06-03] MEDS: Glucosamine 500 MG CAP PO ×2 (08:52→19:46)
[2019-06-03] MEDS: Anastrozole 1 MG TAB PO (08:52)
[2019-06-03] MEDS: Sertraline 50 MG TAB 100 MG PO (08:52)
[2019-06-03] MEDS: Cyclobenzaprine 10 MG TAB 20 MG PO ×2 (08:53→19:47)
[2019-06-03] MEDS: Loperamide 2 MG CAP PO (08:53)
[2019-06-03] MEDS: Metoprolol 25 MG TAB PO (08:53)
[2019-06-03] MEDS: Ascorbic Acid 500 MG TAB PO ×2 (08:53→19:47)
[2019-06-03] MEDS: Folic Acid 1 MG TAB 2 MG PO (08:53)
[2019-06-03] MEDS: Pantoprazole 40 MG TABCR PO (08:53)
[2019-06-03] MEDS: Lactobacillus Acidophilus CAP 1 CAP PO ×3 (08:54→19:46)
[2019-06-03] MEDS: Cyanocobalamin 100 MCG TABLET PO (08:54)
[2019-06-03] MEDS: Ferrous Sulfate 325 MG TAB PO (08:54)
[2019-06-03] MEDS: Nystatin POWDER 60 GM JAR TP ×2 (08:55→19:45)
[2019-06-03] MEDS: Triamcinolone 0.1% CR 15 GM TUBE TP ×2 (08:55→19:45)
[2019-06-03] MEDS: Budesonide/Formoterol 160/4.5 6 GM 60 PUFF INH IH ×2 (08:55→19:44)
[2019-06-03] MEDS: Normal Saline Flush 10 ML SYR IVP (08:57)
[2019-06-03] MEDS: Acetaminophen 325 MG TAB PO (10:19)
--- NOTE | 2019-06-03 12:30 | PT.INNT ---
Date of service: 06/03/19 Time of Service: 12:30 PT Notes Referral for skilled PT services was received today for this 63-year-old female with diagnosis of Pneumonia, Sepsis, Hypotension, and Abdominal pain. Patient was discontinued from skilled PT services on 05/28/2019 due to consecutive refusals to PT/[facility] for skillded services offered. Patient has converted to swing bed level II as of 06/02/2019 and does not need skilled services at this time. Thank you very much for this referral. Yajaira Harrison PT, DPT, CLT [facility]
[2019-06-03 15:30] VITALS: BP 78/56; PULSE 92; RESP 18; TEMP 36; O2SAT 98
[2019-06-03] MEDS: Mylanta Suspension 30 ML CUP PO (15:30)
--- NOTE | 2019-06-03 15:30 | CHAPLAIN ---
Prema was watching tv when I visited. She told me she won't be going home, but didn't know where she was going yet. We talked about the uncertainty of that, and what that feels like. She said she is comfortable here for now. Family members have been in to visit Prema and brought her blankets, photos and stuffed animals. Her niece cut her hair and she said that feels much better. I'll continue to visit.
[2019-06-03 17:00] VITALS: BP 86/60
[2019-06-03] MEDS: oxyCODONE 5 mg/Acetaminophen 325 mg TAB 1 TAB PO (18:43)
--- NOTE | 2019-06-03 19:07 | CMSA_ITS ---
- If Service Date Differs Date of service: 06/02/19 Time of Service: 19:07 SB Psychosocial/Act.Assessment - Hospital Admission Admission Date: 05/24/19 Admission From:: Home Diagnosis:: Sepsis - Swing Bed Admission Swing Bed Admit Date:: 06/02/19 Swing Bed Level of Care: Level 2/ICF - Social Supports PREVIOUS FUNCTIONAL STATUS/SOCIAL/FAMILY SUPPORTS:: Prema resides alone in [facility]. She has two sons whom do not reside locally. Prema states that she has a friend locally whom is supportive Ana. Prema also states that she has someone in the community whom she pays privately [employer] and that she is very helpful. Prema does not drive, she depends on [facility] for transportation at baseline. Prema does have choices for care highest needs. - Prior to Admission Living Arrangements/Environment Prior to Admission:: Prema lived at home with support though choices for care highest needs, home health and syc[facility] on aging. She has been unable to care for herself she is wheelchair bound and has had several episodes of ED visits. Prema has one son that is supportive Reese and the other that is out of the area she has minimal contact with . She does have several people in the community that provide support. - Education Highest Grade Completed:: Prema is not able to read well and considers herself ilitlerate. - Work History Employment Status:: Disabled - : No [place] Spouse: No - Benefits Financial: SSI, Medicaid - Advance Directives for Healthcare Advance Directives for Healthcare: Advance Directives - Interests Hobbies:: Collectables Crafts:: She enjoyed working with yarn in the past and has created several blankets. TV/Movies:: She has an old movie collection she likes. Other Activities:: She enjoys bingo and social activities - Present Functional Status Physical Abilities:: Limited she is wheelchair bound she can stand and piviot Cognitive:: She expresses anxiety and paranoid at times. She states she cannot read. Communication:: She is able to communicate her needs. Behavior:: Emotional, anxious and distrustful - Medical History PAST MEDICAL HISTORY/PAST SURGICAL HISTORY:: Morbid obesity, Depression, H/O DVD, DJD, H/O PSVT, Chronic back pain, Bilateral cataracts, Paroxysmal atrial fibrillation, Diastolic heart failure, (R) heart failure, STACEY General Health:: poor - Admission Data Reason for Swing Bed Admission:: Search for placement at intermediate project manager care facility she is not able to return to her apartment and needs LTC. Discharge Plan:: Referrals have been faxed to all accepting nursing homes in [place]. She has been declined by all [facility], [facility], [facility],and [facility]. Prema will need custodial care placement and will remain at [facility] until placement has been identified. Assessment: Prema is pleasant in interaction with CM. She understands that she is no longer able to return home. She is awaiting placement at a facility CM will continue to outreach. CM will contact [facility] support services to identify other alternitives. MICHAEL has sent an email to KAREN Kelly to request assistance. Applied Researcher: Juju Arriaga Date Assessment was completed:: 06/02/19
--- NOTE | 2019-06-03 19:24 | CM.SWINGPC ---
- If Service Date Differs Date of service: 06/02/19 Time of Service: 19:24 Swingbed Plan of Care Plan of care: SWING BED PROGRAM ACTIVITIES/DISCHARGE PLAN OF CARE ACTIVITIES PLAN Date:06/02/19 Identified Need: Individual activities Intervention/Plan: Activity cart, music, reike, pet therapy, miles visits, phone and television in room. Initials [facility] DISCHARGE PLAN Date:06/02/19 Identified Need: Placement LTC facility Intervention/Plan: Referrals to all LTC facilities in [place] willing to accept a referral. InitialsKH
[2019-06-03 21:44] VITALS: BP 72/50; PULSE 76; RESP 18; TEMP 36.1; O2SAT 96
[2019-06-03] MEDS: clonazePAM 1 MG TAB 2 MG PO (21:46)
[2019-06-03] MEDS: Zolpidem 5 MG TAB PO (21:46)
[2019-06-04] VITALS: BP 83/50; PULSE 123
[2019-06-04] MEDS: Heparin 5,000 UNITS/ML VIAL 5000 UNITS SC ×3 (00:16→16:43)
[2019-06-04] MEDS: oxyCODONE 5 mg/Acetaminophen 325 mg TAB 1 TAB PO ×2 (04:30→17:54)
--- NOTE | 2019-06-04 07:25 | HPE_ITS ---
Date of service: 06/02/19 Time of Service: 14:53 History of Present Illness Chief Complaint: Pneumonia, Barriers in safe disposition Narrative: 62 year old woman with a prior medical history of ascending cholangitis with septic shock s/p biliary drain that remains in place, admitted from [facility] Emergency Department on 05/24 with a diagnosis of Pneumonia. Ms. Watson has a history of Ascending Cholangitis, treated at [facility], with evidence of septic shock s/p biliary drain that still remains in place and was last changed on 04/28/2019. She also has a Past Medical History of Borderline Personality Disorder, Morbid Obesity, Breast Ca, CAD, COPD on Home O2, STACEY, PHTN with severe TR, Chronic Diastolic and Right sided CHF, and GERD. She has been noted to have PSVTs in the past, and has Paroxysmal Afib as a prior history as well, not anticoagulated. Patient presented to [facility] ED with complaints of nausea and vomiting, epigastric pain, and malaise, found to be hypotensive with imaging showing evidence of a right sided infiltrate. The CT of her chest and abdomen also showed a stable left pleural effusion, stable opacity in the left lung apex likely representing scarring, and stable fluid collect in the left chest wall. Her percutaneous biliary drain was noted to be stable in location. She was treated with aggressive IVFs and broad-spectrum antibiotics, and referred for admission. Since admission Ms. Watson has been persistently hypotensive, which is her norm. This persisted despite discontinuation of her BB therapy, and she actually received 2 rounds of pressor therapy. Her BB was resumed with improved HR control and stable blood pressures. She reported onset of 'chest pain' yesterday morning - nursing reports that patient has been in a supine position for the majority of her stay, and there was concern regarding possible GERD type symptoms. EKG was checked and essentially unchanged, and troponins were undetectable. Her antibiotics were discontinued on 05/29, and she remains afebrile and without leukocytosis. Her HR is vastly improved, although with BB held this morning with resultant mild hypotension. Her hypotension remains unchanged. No overnight events reported. Hospital Course: (1) Chest pain: EKG Non-ischemic and essentially unchanged. Ruled out with serial cardiac biomarkers. Suspect non-cardiac etiology. (2) Tachycardia: History of both Paroxysmal Afib and SVTs - patient's blood pressure has been intolerant of resumption of BB therapy and required pressor support, with Metoprolol remaining on hold for some time. Diltiazem initiated and titrate carefully without any change in tachycardia. EKGs reviewed, and case discussed in great length with Cardiology. Tachycardia appears to be sinus, but patient has history of PAF/PSVTs by monitors in the past as well. - Afebrile, and infection appears treated. - Did not initially appear to be volume depleted - has had negative I/O's for 4 days, but is overall net positive approximately 5 L since admission. Labs did not seem to indicate intravascular depletion, but with elevating BUN this morning - will administer 1 bag of NS. - No evidence of anemia, not hypoxic, and not complaining of pain. - TSH checked and normal. - No evidence or history of left sided CHF - patient does have a history of RV dysfunction and PHTN however. Ms. Watson does have hypotension, but this appears to be a chronic findings. She also has anxiety, and takes stimulant therapy (Methylphenidate) chronically and not interested in discontinuation. Doubt PE as she has been maintained on chemical DVT prophylaxis. Also doubt Pheochromocytoma as there have been no associated headache, diaphoresis, or hypertension reported. Persistent tachycardia may also represent Dysautonomia vs. compensatory for chronically low blood pressure. - Obvious concern here is for a tachy mediated cardiomyopathy in the future without appropriate rate control, and patient also has a history of SVTs and PAF and needs a willian agent on board. Her HR has improved substantially with reinitiation of BB without significant change in her blood pressure. If needed, consider initiation of Midodrine to help with hypotension. (3) Sepsis: Diagnosis of sepsis based on initial presentation with Leukocytosis, Tachycardia (although with chronicity to this), [place], and elevated Lactic Acid. Patient was afebrile however. Etiology presumed secondary to Pulmonary Source for infection. - Blood Cultures from 05/24 & 05/26 remain negative (1 bottle with likely contaminant). - Urinalysis not overtly convincing for UTI, with cultures showing <100,000 CFU of VRE, clinically asymptomatic. Very likely colonization. Patient did receive 3 days of Linezolid. - Patient received a total of 4 days of Vancomycin, 3 days of Linezolid, and 5 days of Aztreonam. Procalcitonin decreased from 0.4 to undetectable, and anti biotics were discontinued. - Sepsis appears resolved. Patient is chronically hypotensive and tachycardic as above, both appear chronic. No fever and lack of leukocytosis, and patient appears non-toxic. Continue to hold off on further antibiotics. (4) HCAP (healthcare-associated pneumonia): Treatment as above. Sputum culture + for MSSA. (5) STACEY (obstructive sleep apnea): Continue CPAP. (6) Right heart failure with reduced right ventricular function: Noted. Monitor volume status. (7) Depression: History of Anxiety, Depression, and Borderline Personality Disorder. Continue home regimen of Clonazepam, resume SSRI. Discontinue prn Lorazepam. (8) DVT prophylaxis: Heparin SC. (9) Disposition: Due to lack of safe discharge planning (barriers in placement) patient is being transitioned to Swing Bed status. [facility] Social History Smoking/Tobacco Use Status: Former Tobacco Use Second Hand Exposure: No Alcohol Intake: never Drug use: Never Substance use type: does not use Caregiver/Support person: No Household members: none Housing: apartment Number of Children: 2 number of grandchildren: 1 Communication Needs: Cannot Read Education Level: middle school Do you need help understanding health information?: Always Do you feel safe at home: Yes Do you feel safe in your relationship?: Yes Meds Home Medications Medication Instructions Recorded Confirmed Type pantoprazole 40 mg PO DAILY 03/09/13 06/02/19 History clonazepam 2 tab PO HS 10/03/14 06/02/19 History Advair HFA 2 puff INHALATION BID 10/26/14 06/02/19 History cyclobenzaprine 20 mg PO BID 10/26/14 06/02/19 History anastrozole [Arimidex] 1 mg PO DAILY 12/18/16 06/02/19 History glucosamine sulfate 2KCl 500 mg PO BID 12/18/16 06/02/19 History cyanocobalamin (vitamin B-12) 100 mcg PO DAILY 05/30/17 06/02/19 History [Vitamin B-12] ergocalciferol (vitamin D2) 50,000 units PO DIRECTED 05/30/17 06/02/19 History [Vitamin D2] ipratropium-albuterol 3 ml INHALATION QID 02/12/18 06/02/19 History metoprolol tartrate 25 mg PO TID 09/18/18 06/02/19 History Atrovent HFA 2 puff INHALATION TID 10/20/18 06/02/19 History ferrous sulfate 325 mg PO DAILY 10/20/18 06/02/19 History loperamide 2 mg PO TID PRN PRN 10/20/18 06/02/19 History methylphenidate HCl [Ritalin] 10 mg PO DIRECTED 10/20/18 06/02/19 History oxycodone-acetaminophen [Percocet] 1 tab PO Q6H PRN PRN 10/20/18 06/02/19 History albuterol sulfate [ProAir HFA] 2 puff INHALATION Q4H PRN PRN 05/28/19 06/02/19 History calcium carbonate-vitamin D3 1 tab PO DAILY 05/28/19 06/02/19 History folic acid 2 mg PO DAILY 05/28/19 06/02/19 History ketoconazole See Rx Instructions .ROUTE .COMPLEX 05/28/19 06/02/19 History menthol [Biofreeze (menthol)] See Rx Instructions .ROUTE 05/28/19 06/02/19 History .COMPLEX PRN nitroglycerin [Nitrostat] 0.4 mg SUBLINGUAL .Q 5 MIN PRN CP 05/28/19 06/02/19 History PRN nystatin See Rx Instructions .ROUTE .COMPLEX 05/28/19 06/02/19 History sennosides [senna] 17.2 mg PO DAILY 05/28/19 06/02/19 History sertraline 100 mg PO DAILY 05/28/19 06/02/19 History zolpidem 5 mg PO HS 05/28/19 06/02/19 History Allergies Allergy/AdvReac Type Severity Reaction Status Date / Time haloperidol Allergy Severe seizure Unverified 05/24/19 03:30 cephalexin monohydrate Allergy Mild Unverified 05/24/19 03:30 [From Keflex] ciprofloxacin [From Cipro] Allergy Mild Hives Unverified 05/24/19 03:30 dextroamphetamine Allergy Unknown Unverified 05/24/19 03:30 doxylamine Allergy Unknown Unverified 05/24/19 03:30 eszopiclone [From Lunesta] Allergy Unknown Unverified 05/24/19 03:30 Penicillins Allergy Unknown Unverified 05/24/19 03:30 pseudoephedrine Allergy Unknown Unverified 05/24/19 03:30 Sulfa (Sulfonamide Allergy Unknown Unverified 05/24/19 03:30 Antibiotics) trazodone Allergy Unknown Unverified 05/24/19 03:30 venlafaxine HCl AdvReac Severe crazy Unverified 05/24/19 03:30 [From Effexor] dextromethorphan HBr AdvReac Intermediate muscle Unverified 05/24/19 03:30 [From NyQuil] twitch doxylamine succinate AdvReac Intermediate muscle Unverified 05/24/19 03:30 [From NyQuil] twitch omeprazole AdvReac Intermediate Diarrhea Unverified 05/24/19 03:30 pseudoephedrine HCl AdvReac Intermediate muscle Unverified 05/24/19 03:30 [From NyQuil] twitch chlorpromazine HCl AdvReac passes out Unverified 05/24/19 03:30 [From Thorazine] Results Last Vital Signs Temp 36.1 C L 06/03/19 21:44 Pulse 123 H 06/04/19 00:00 Resp 18 06/03/19 21:44 BP 83/50 L 06/04/19 00:00 Pulse Ox 96 06/03/19 21:44
[2019-06-04 07:50] VITALS: BP 93/62; PULSE 82; RESP 20; TEMP 36.9; O2SAT 98
[2019-06-04] MEDS: Pantoprazole 40 MG TABCR PO (09:12)
[2019-06-04] MEDS: Glucosamine 500 MG CAP PO ×2 (09:12→20:44)
[2019-06-04] MEDS: Anastrozole 1 MG TAB PO (09:12)
[2019-06-04] MEDS: Folic Acid 1 MG TAB 2 MG PO (09:12)
[2019-06-04] MEDS: Sertraline 50 MG TAB 100 MG PO (09:12)
[2019-06-04] MEDS: Ascorbic Acid 500 MG TAB PO ×2 (09:13→20:44)
[2019-06-04] MEDS: Ferrous Sulfate 325 MG TAB PO (09:13)
[2019-06-04] MEDS: Cyclobenzaprine 10 MG TAB 20 MG PO ×2 (09:13→20:43)
[2019-06-04] MEDS: Nystatin POWDER 60 GM JAR TP ×3 (09:14→20:41)
[2019-06-04] MEDS: Methylphenidate 10 MG TAB PO ×2 (09:14→14:26)
[2019-06-04] MEDS: Lactobacillus Acidophilus CAP 1 CAP PO ×3 (09:14→20:44)
[2019-06-04] MEDS: Triamcinolone 0.1% CR 15 GM TUBE TP ×2 (09:14→20:41)
[2019-06-04] MEDS: Metoprolol 25 MG TAB PO (09:14)
[2019-06-04] MEDS: Cyanocobalamin 100 MCG TABLET PO (09:14)
[2019-06-04] MEDS: Budesonide/Formoterol 160/4.5 6 GM 60 PUFF INH IH ×2 (09:16→20:42)
[2019-06-04] MEDS: Ergocalciferol 50000 UNITS CAP PO (10:03)
[2019-06-04 15:30] VITALS: BP 80/56; PULSE 114; RESP 21; TEMP 35.6; O2SAT 99
--- NOTE | 2019-06-04 17:05 | PDOC.CMPRO ---
- If Service Date Differs Date of service: 06/04/19 Time of Service: 17:05 Care Management Progress Note S/O: Prema is alert and engaged she cries throughout the conversation she states No one is going to take me, I know it, no one wants me. CM listen to Prema process her feelings r/t not having a LTC option. She agrees to referrals to [facility] homes CM contacted [facility] to send a referral. CM encouraged Prema to have her wheelchair from home brought in so she can go out on pass. CM will continue to provide support and outreach community services for continue placement. Declining facilities include [facility] P: CM to continue to identify placement options on behalf of the patient and provide support to the patient ongoing discharge planning and disposition.
--- NOTE | 2019-06-04 18:48 | NUR.NOTE ---
Nursing Note: Discussed importance for maintaining hygiene. Patient refused care three times from 7am to 3pm. Patient was asked again from 3pm to 545 pm and refused another three times for bath/hygiene. Patient informed she could be lifted into a chair with a akash and taken to the shower. Patient shook her head and grabbed her tiger plush toy. Patient placed CPAP on her face and put her eye mask on. Patient reports you're not my mom. and appears to have gone to sleep.
[2019-06-04] MEDS: Nystatin 500000 UNITS/5 ML SUSP 5ML CUP PO (20:42)
[2019-06-04] MEDS: clonazePAM 1 MG TAB 2 MG PO (21:48)
[2019-06-04] MEDS: Zolpidem 5 MG TAB PO (21:48)
[2019-06-05] MEDS: Heparin 5,000 UNITS/ML VIAL 5000 UNITS SC ×4 (00:45→23:50)
[2019-06-05] MEDS: oxyCODONE 5 mg/Acetaminophen 325 mg TAB 1 TAB PO ×2 (00:45→20:40)
[2019-06-05] MEDS: Metoprolol 25 MG TAB PO ×3 (00:46→23:50)
[2019-06-05 00:47] VITALS: BP 89/60; PULSE 120
[2019-06-05 07:50] VITALS: BP 77/47; PULSE 110; RESP 20; TEMP 36.5; O2SAT 98
[2019-06-05] MEDS: Lactobacillus Acidophilus CAP 1 CAP PO ×3 (08:12→20:31)
[2019-06-05] MEDS: Pantoprazole 40 MG TABCR PO (08:12)
[2019-06-05] MEDS: Glucosamine 500 MG CAP PO ×2 (08:12→20:31)
[2019-06-05] MEDS: Anastrozole 1 MG TAB PO (08:13)
[2019-06-05] MEDS: Ascorbic Acid 500 MG TAB PO ×2 (08:13→20:32)
[2019-06-05] MEDS: Folic Acid 1 MG TAB 2 MG PO (08:13)
[2019-06-05] MEDS: Acetaminophen 325 MG TAB PO ×2 (08:13→17:37)
[2019-06-05] MEDS: Methylphenidate 10 MG TAB PO ×2 (08:14→13:39)
[2019-06-05] MEDS: Cyclobenzaprine 10 MG TAB 20 MG PO ×2 (08:14→20:31)
[2019-06-05] MEDS: Loperamide 2 MG CAP PO ×2 (08:14→20:31)
[2019-06-05] MEDS: Sertraline 50 MG TAB 100 MG PO (08:14)
[2019-06-05] MEDS: Nystatin 500000 UNITS/5 ML SUSP 5ML CUP PO ×3 (08:15→20:31)
[2019-06-05] MEDS: Ferrous Sulfate 325 MG TAB PO (08:15)
[2019-06-05] MEDS: Cyanocobalamin 100 MCG TABLET PO (08:15)
[2019-06-05] MEDS: Triamcinolone 0.1% CR 15 GM TUBE TP ×2 (08:16→20:31)
[2019-06-05] MEDS: Nystatin POWDER 60 GM JAR TP ×3 (08:26→20:32)
[2019-06-05] MEDS: Normal Saline Flush 10 ML SYR IVP (12:09)
[2019-06-05 16:42] VITALS: BP 87/74; PULSE 120; RESP 18; TEMP 36.6; O2SAT 96
[2019-06-05] MEDS: Mylanta Suspension 30 ML CUP PO (17:38)
[2019-06-05] MEDS: Budesonide/Formoterol 160/4.5 6 GM 60 PUFF INH IH (20:31)
[2019-06-05] MEDS: Zolpidem 5 MG TAB PO (21:45)
[2019-06-05] MEDS: clonazePAM 1 MG TAB 2 MG PO (21:45)
[2019-06-05 23:45] VITALS: BP 98/64; PULSE 122; RESP 18; TEMP 35.9; O2SAT 99
[2019-06-06] MEDS: Acetaminophen 325 MG TAB PO (04:43)
[2019-06-06] MEDS: Folic Acid 1 MG TAB 2 MG PO (09:41)
[2019-06-06] MEDS: Heparin 5,000 UNITS/ML VIAL 5000 UNITS SC ×3 (09:41→23:58)
[2019-06-06] MEDS: Cyanocobalamin 100 MCG TABLET PO (09:42)
[2019-06-06] MEDS: Sertraline 50 MG TAB 100 MG PO (09:42)
[2019-06-06] MEDS: Pantoprazole 40 MG TABCR PO (09:42)
[2019-06-06] MEDS: Ferrous Sulfate 325 MG TAB PO (09:42)
[2019-06-06] MEDS: Anastrozole 1 MG TAB PO (09:42)
[2019-06-06] MEDS: Cyclobenzaprine 10 MG TAB 20 MG PO ×2 (09:42→19:36)
[2019-06-06] MEDS: Glucosamine 500 MG CAP PO ×2 (09:42→19:36)
[2019-06-06] MEDS: Methylphenidate 10 MG TAB PO ×2 (09:42→14:33)
[2019-06-06] MEDS: Lactobacillus Acidophilus CAP 1 CAP PO ×3 (09:42→19:34)
[2019-06-06] MEDS: Ascorbic Acid 500 MG TAB PO ×2 (09:43→19:36)
[2019-06-06] MEDS: Nystatin 500000 UNITS/5 ML SUSP 5ML CUP PO ×3 (10:14→19:34)
[2019-06-06] MEDS: Nystatin POWDER 60 GM JAR TP ×2 (10:14→19:42)
[2019-06-06 11:42] VITALS: BP 89/60; PULSE 107; RESP 17; TEMP 36.9; O2SAT 95
[2019-06-06] MEDS: Mylanta Suspension 30 ML CUP PO ×2 (11:47→19:32)
[2019-06-06] MEDS: Metoprolol 25 MG TAB PO ×2 (11:48→19:37)
[2019-06-06] MEDS: Normal Saline Flush 10 ML SYR IVP (11:48)
[2019-06-06] MEDS: Triamcinolone 0.1% CR 15 GM TUBE TP ×2 (12:01→19:41)
[2019-06-06 17:41] VITALS: BP 86/56; PULSE 89; RESP 19; TEMP 36.8; O2SAT 94
[2019-06-06] MEDS: Budesonide/Formoterol 160/4.5 6 GM 60 PUFF INH IH (19:33)
[2019-06-06] MEDS: Loperamide 2 MG CAP PO (19:35)
[2019-06-06 19:51] VITALS: BP 88/58; PULSE 109; RESP 20; O2SAT 95
[2019-06-06] MEDS: Zolpidem 5 MG TAB PO (21:12)
[2019-06-06] MEDS: clonazePAM 1 MG TAB 2 MG PO (21:12)
[2019-06-06] MEDS: oxyCODONE 5 mg/Acetaminophen 325 mg TAB 1 TAB PO (21:12)
[2019-06-07] VITALS (7 sets, daily range): BP systolic 73–90; BP diastolic 48–60; PULSE 104–115; RESP 18–20; TEMP 36.8–36.9; O2SAT 97
[2019-06-07] MEDS: oxyCODONE 5 mg/Acetaminophen 325 mg TAB 1 TAB PO ×2 (03:24→20:37)
[2019-06-07 08:17] LABS: HCT 42.4 % (36.0-46.0); HGB 13.4 g/dL (12.0-15.5); Mean Corp. HGB Concentration 31.6 g/dL (32.0-36.0); Mean Corpuscular Hemoglobin 33.2 pg (27.0-33.0); Mean Platelet Volume 10.6 fL (8.0-11.0); Platelet Count 154 x1000/uL (130-400); RBC 4.04 m/cumm (4.00-5.20); RBC Distribution Width 14.3 % (11.7-14.6); White Blood Cell Count 8.28 k/cumm (4.4-10.8)
[2019-06-07] MEDS: Budesonide/Formoterol 160/4.5 6 GM 60 PUFF INH IH ×2 (08:23→20:14)
[2019-06-07] MEDS: Nystatin 500000 UNITS/5 ML SUSP 5ML CUP PO ×3 (08:49→20:07)
[2019-06-07] MEDS: Normal Saline Flush 10 ML SYR IVP (08:49)
[2019-06-07] MEDS: Heparin 5,000 UNITS/ML VIAL 5000 UNITS SC (08:50)
[2019-06-07] MEDS: Cyclobenzaprine 10 MG TAB 20 MG PO (08:50)
[2019-06-07] MEDS: Ascorbic Acid 500 MG TAB PO ×2 (08:50→20:09)
[2019-06-07] MEDS: Acetaminophen 325 MG TAB PO (08:50)
[2019-06-07] MEDS: Glucosamine 500 MG CAP PO ×2 (08:51→20:09)
[2019-06-07] MEDS: Folic Acid 1 MG TAB 2 MG PO (08:51)
[2019-06-07] MEDS: Anastrozole 1 MG TAB PO (08:51)
[2019-06-07] MEDS: Loperamide 2 MG CAP PO ×3 (08:51→20:10)
[2019-06-07] MEDS: Ferrous Sulfate 325 MG TAB PO (08:51)
[2019-06-07] MEDS: Lactobacillus Acidophilus CAP 1 CAP PO ×3 (08:51→20:10)
[2019-06-07] MEDS: Sertraline 50 MG TAB 100 MG PO (08:52)
[2019-06-07] MEDS: Pantoprazole 40 MG TABCR PO (08:52)
[2019-06-07] MEDS: Methylphenidate 10 MG TAB PO ×2 (08:52→13:58)
[2019-06-07] MEDS: Cyanocobalamin 100 MCG TABLET PO (08:52)
[2019-06-07] MEDS: Ergocalciferol 50000 UNITS CAP PO (09:20)
[2019-06-07] MEDS: Nystatin POWDER 60 GM JAR TP ×3 (10:11→21:34)
[2019-06-07] MEDS: Triamcinolone 0.1% CR 15 GM TUBE TP ×2 (10:12→21:34)
[2019-06-07] MEDS: Normal Saline 1,000 ML 1000 ML IV (12:09)
[2019-06-07] MEDS: Metoprolol 25 MG TAB PO (12:12)
[2019-06-07 12:44] LABS: Bilirubin Negative (Negative); Blood Small (Negative); Clarity Cloudy (Clear); Glucose Negative (Negative); Ketones Negative (Negative); Leukocyte Esterase Large (Negative); Nitrite Positive (Negative); Specific Gravity 1.015 (1.005-1.025); Urobilinogen 0.2 EU/dL (Up TO 0.2); pH 5.5 (5-8)
[2019-06-07 13:01] LABS: C & S Indicated? C&S Done As Ordered; WBC >50 HPF (0-5)
[2019-06-07] MEDS: Linezolid 600 MG TAB PO ×2 (15:12→20:08)
--- NOTE | 2019-06-07 15:41 | CHAPLAIN ---
Prema paid a friend to deliver her motorized wheelchair and it's in her room now. She was mostly [id number] in our conversation talking about what it cost her to get her wheelchair here.
--- NOTE | 2019-06-07 17:11 | W.PM.PROGNOT ---
Date of Service Date of service: 06/07/19 Time of Service: 17:12 Subjective Interval history since last seen: Ms Watson states that she is feeling hot. She did have 2 lower BP's this morning - 80/50, 73/48. This responded nicely to the bolus of IVF. She was found to have a UTI by UA. Her arndt was changed, and she was started on linezolid. Because of this, her sertraline, flexeril, and methylphenydate have to be held. Prema chooses to wave her hand as if saying so so rather than giving me verbal answers to my questions other than she is feeling hot. Objective Objective Clinical Data: Abnormal lab results 06/07/19 06/07/19 Range/Units 08:10 12:15 MCV 105.0 H (80-95) fL MCH 33.2 H (27.0-33.0) pg MCHC 31.6 L (32.0-36.0) g/dL Urine Protein Trace H (Negative) mg/dL Urine Blood Small H (Negative) Urine Nitrite Positive H (Negative) Ur Leukocyte Esterase Large H (Negative) Vital Signs Temperature 36.9 C 06/07/19 07:30 Temperature Source Tympanic 06/07/19 07:30 Pulse 112 H 06/07/19 11:50 Pulse Rhythm Regular 06/07/19 15:30 Respiratory Rate 20 06/07/19 07:30 Respiratory Effort 06/07/19 15:30 Respiratory Depth Shallow 06/07/19 15:30 Respiratory Pattern Normal 06/07/19 15:30 Blood Pressure 90/60 L 06/07/19 11:50 Pulse Oximetry 97 06/07/19 07:30 Oxygen Delivery Method Nasal Cannula 06/07/19 07:30 Oxygen Flow Rate 2 06/07/19 07:30 Pain Level 5 06/07/19 10:54 Comment 06/05/19 07:50 Intake & Output 06/06/19 06/07/19 06/07/19 23:59 11:59 23:59 Intake Total 530 / 530 940 / 2550 1610 / 2550 Output Total 750 / 1850 1989 Balance -220 / -1320 -1050 / 560 1610 / 560 Intake: IV 1000 / 1000 Oral 420 / 420 940 / 1550 610 / 1550 Injectate 100 / 100 Right Abdomen 100 / 100 Output: Drainage 150 / 150 Right Abdomen 150 / 150 Urine 600 / 1700 1989 Other: Urine Color Yellow Urine Appearance Cloudy Cloudy Cloudy Stool Size Large Large Large Stool Characteristics Soft Soft Formed Formed Brown Brown Laboratory Results WBC 8.28 k/cumm (4.4-10.8) 06/07/19 08:10 RBC 4.04 m/cumm (4.00-5.20) 06/07/19 08:10 Hgb 13.4 g/dL (12.0-15.5) 06/07/19 08:10 Hct 42.4 % (36.0-46.0) 06/07/19 08:10 MCV 105.0 fL (80-95) H 06/07/19 08:10 MCH 33.2 pg (27.0-33.0) H 06/07/19 08:10 MCHC 31.6 g/dL (32.0-36.0) L 06/07/19 08:10 RDW 14.3 % (11.7-14.6) 06/07/19 08:10 Plt Count 154 x1000/uL (130-400) 06/07/19 08:10 MPV 10.6 fL (8.0-11.0) 06/07/19 08:10 Yellow (Yellow) 06/07/19 12:15 Cloudy (Clear) 06/07/19 12:15 5.5 (5-8) 06/07/19 12:15 Ur Specific [place] 1.015 (1.005-1.025) 06/07/19 12:15 Trace mg/dL (Negative) H 06/07/19 12:15 Negative mg/dL (Negative) 06/07/19 12:15 Small (Negative) H 06/07/19 12:15 Positive (Negative) H 06/07/19 12:15 Negative (Negative) 06/07/19 12:15 0.2 EU/dL (Up TO 0.2) 06/07/19 12:15 Ur Leukocyte Esterase Large (Negative) H 06/07/19 12:15 Not Applicable 06/07/19 12:15 >50 HPF (0-5) 06/07/19 12:15 Ur Epithelial Cells Not Applicable 06/07/19 12:15 Not Applicable 06/07/19 12:15 Not Applicable 06/07/19 12:15 Not Applicable 06/07/19 12:15 Ur Culture Indicated? C&s done as ordered 06/07/19 12:15 Negative mg/dL (Negative) 06/07/19 12:15
[2019-06-07] MEDS: Zolpidem 5 MG TAB PO (20:07)
[2019-06-07] MEDS: clonazePAM 1 MG TAB 2 MG PO (21:34)
[2019-06-08 04:20] VITALS: BP 94/62; PULSE 91
[2019-06-08] MEDS: oxyCODONE 5 mg/Acetaminophen 325 mg TAB 1 TAB PO ×2 (04:23→20:12)
[2019-06-08] MEDS: Metoprolol 25 MG TAB PO ×2 (04:23→19:42)
[2019-06-08 07:45] VITALS: BP 75/50; PULSE 89; RESP 20; TEMP 36.3; O2SAT 97
[2019-06-08] MEDS: Budesonide/Formoterol 160/4.5 6 GM 60 PUFF INH IH ×2 (08:23→19:42)
[2019-06-08 08:28] VITALS: O2SAT 95
[2019-06-08] MEDS: Anastrozole 1 MG TAB PO (09:37)
[2019-06-08] MEDS: Lactobacillus Acidophilus CAP 1 CAP PO ×3 (09:38→19:42)
[2019-06-08] MEDS: Ferrous Sulfate 325 MG TAB PO (09:39)
[2019-06-08] MEDS: Loperamide 2 MG CAP PO (09:39)
[2019-06-08] MEDS: Pantoprazole 40 MG TABCR PO (09:39)
[2019-06-08] MEDS: Cyanocobalamin 100 MCG TABLET PO (09:39)
[2019-06-08] MEDS: Linezolid 600 MG TAB PO ×2 (09:39→19:42)
[2019-06-08] MEDS: Ascorbic Acid 500 MG TAB PO ×2 (09:40→19:42)
[2019-06-08] MEDS: Glucosamine 500 MG CAP PO ×2 (09:40→19:42)
[2019-06-08] MEDS: Folic Acid 1 MG TAB 2 MG PO (09:40)
[2019-06-08] MEDS: Nystatin 500000 UNITS/5 ML SUSP 5ML CUP PO ×3 (09:40→19:42)
[2019-06-08] MEDS: Acetaminophen 325 MG TAB PO (10:38)
[2019-06-08] MEDS: Nystatin POWDER 60 GM JAR TP ×3 (10:39→19:43)
[2019-06-08] MEDS: Triamcinolone 0.1% CR 15 GM TUBE TP ×2 (10:40→19:43)
[2019-06-08 12:00] VITALS: BP 82/60
[2019-06-08] MEDS: Normal Saline Flush 10 ML SYR IVP (16:53)
[2019-06-08 19:40] VITALS: BP 95/61; PULSE 99; RESP 19; TEMP 36.5; O2SAT 97
[2019-06-08] MEDS: Zolpidem 5 MG TAB PO (19:54)
[2019-06-08] MEDS: clonazePAM 1 MG TAB 2 MG PO (19:54)
[2019-06-09] MEDS: Acetaminophen 325 MG TAB PO (01:07)
[2019-06-09 04:03] VITALS: BP 91/57; PULSE 51
[2019-06-09] MEDS: oxyCODONE 5 mg/Acetaminophen 325 mg TAB 1 TAB PO ×3 (04:11→19:43)
[2019-06-09 07:21] LABS: HCT 39.4 % (36.0-46.0); HGB 12.6 g/dL (12.0-15.5); Mean Corpuscular Hemoglobin 33.5 pg (27.0-33.0); Mean Corpuscular Volume 104.8 fL (80-95); Mean Platelet Volume 10.8 fL (8.0-11.0); Platelet Count 138 x1000/uL (130-400); RBC 3.76 m/cumm (4.00-5.20); White Blood Cell Count 5.88 k/cumm (4.4-10.8)
[2019-06-09 08:00] VITALS: BP 78/46; PULSE 63; RESP 19; TEMP 36.6; O2SAT 100
--- NOTE | 2019-06-09 08:32 | PDOC.CMPRO ---
Care Management Progress Note CM rec'd call from Aura Pitt regarding next steps, [facility] home, options counseling and waiver path for Prmea. Aura recommended seeking [facility] home while still working towards placement. She recommended referrals be sent to [place] and [facility]; [place] programs in [facility]. CM provided known case review items. Aura reported she planned to connect with current community based pillowcase turner and loop inpatient care managers into planning to support placement for Prema.
[2019-06-09] MEDS: Folic Acid 1 MG TAB 2 MG PO (08:55)
[2019-06-09] MEDS: Pantoprazole 40 MG TABCR PO (08:55)
[2019-06-09] MEDS: Anastrozole 1 MG TAB PO (08:55)
[2019-06-09] MEDS: Lactobacillus Acidophilus CAP 1 CAP PO ×3 (08:55→19:42)
[2019-06-09] MEDS: Cyanocobalamin 100 MCG TABLET PO (08:55)
[2019-06-09] MEDS: Ferrous Sulfate 325 MG TAB PO (08:55)
[2019-06-09] MEDS: Ascorbic Acid 500 MG TAB PO ×2 (08:55→19:43)
[2019-06-09] MEDS: Glucosamine 500 MG CAP PO ×2 (08:56→19:43)
[2019-06-09] MEDS: Linezolid 600 MG TAB PO ×2 (08:56→19:43)
[2019-06-09 10:10] VITALS: O2SAT 100
[2019-06-09 10:20] VITALS: RESP 14
[2019-06-09] MEDS: Ergocalciferol 50000 UNITS CAP PO (10:40)
[2019-06-09] MEDS: Nystatin 500000 UNITS/5 ML SUSP 5ML CUP PO ×2 (13:28→19:42)
[2019-06-09] MEDS: Nystatin POWDER 60 GM JAR TP ×2 (13:29→19:44)
--- NOTE | 2019-06-09 16:00 | PT.INNT ---
Date of service: 06/09/19 PT Notes Another referral was sent on 06/09/2019 for ambulation assistance. Patient is under swing bed level 2 and is not eligible for skilled PT services at this time. Thank you very much for this referral. Yajaira Harrison PT, DPT, CLT [facility]
[2019-06-09 19:35] VITALS: BP 100/65; PULSE 105; RESP 18; TEMP 36.5; O2SAT 97
[2019-06-09] MEDS: Triamcinolone 0.1% CR 15 GM TUBE TP (19:43)
[2019-06-09] MEDS: Zolpidem 5 MG TAB PO (19:43)
[2019-06-09] MEDS: Metoprolol 25 MG TAB PO (19:43)
[2019-06-09] MEDS: clonazePAM 1 MG TAB 2 MG PO (19:43)
[2019-06-09] MEDS: Loperamide 2 MG CAP PO (19:48)
[2019-06-09] MEDS: Budesonide/Formoterol 160/4.5 6 GM 60 PUFF INH IH (19:49)
[2019-06-10] VITALS (8 sets, daily range): BP systolic 68–88; BP diastolic 44–58; PULSE 67–123; RESP 14–19; TEMP 36.4–36.5; O2SAT 92–94
[2019-06-10] MEDS: oxyCODONE 5 mg/Acetaminophen 325 mg TAB 1 TAB PO ×4 (02:14→23:51)
[2019-06-10] MEDS: Budesonide/Formoterol 160/4.5 6 GM 60 PUFF INH IH ×2 (09:13→20:37)
[2019-06-10] MEDS: Pantoprazole 40 MG TABCR PO (09:14)
[2019-06-10] MEDS: Cyanocobalamin 100 MCG TABLET PO (09:14)
[2019-06-10] MEDS: Anastrozole 1 MG TAB PO (09:14)
[2019-06-10] MEDS: Glucosamine 500 MG CAP PO ×2 (09:14→20:36)
[2019-06-10] MEDS: Linezolid 600 MG TAB PO (09:14)
[2019-06-10] MEDS: Nystatin 500000 UNITS/5 ML SUSP 5ML CUP PO ×3 (09:14→20:35)
[2019-06-10] MEDS: Lactobacillus Acidophilus CAP 1 CAP PO ×3 (09:14→20:36)
[2019-06-10] MEDS: Ascorbic Acid 500 MG TAB PO ×2 (09:15→20:36)
[2019-06-10] MEDS: Folic Acid 1 MG TAB 2 MG PO (09:15)
[2019-06-10] MEDS: Ferrous Sulfate 325 MG TAB PO (09:15)
[2019-06-10] MEDS: Loperamide 2 MG CAP PO ×3 (09:15→20:36)
[2019-06-10] MEDS: Triamcinolone 0.1% CR 15 GM TUBE TP ×2 (09:21→20:37)
[2019-06-10] MEDS: Nystatin POWDER 60 GM JAR TP ×3 (09:21→20:36)
[2019-06-10] MEDS: Acetaminophen 325 MG TAB PO ×2 (13:45→21:11)
[2019-06-10] MEDS: Metoprolol 25 MG TAB PO ×2 (13:45→21:13)
[2019-06-10] MEDS: CEFEPIME 1 GM in Normal Saline 50 ML IVPB ×2 (13:53→23:45)
--- NOTE | 2019-06-10 16:00 | CHAPLAIN ---
The community outreach coordinator let me know that Prema wanted to see me. She mostly talked about her son's visit this coming Friday. Her concern is that her son will try to deem her incompetent, although she doesn't know the whole procedure for that and doesn't believe he can accomplish that. Prema made her case for why she should be able to return to her apartment and continue to live independently. Although she relies on her motorized wheelchair for mobility said she can get in and out of it herself. She asked about when Television Antenna Installer, Ivelisse Arriaga would be in again. She has known Ivelisse for a long time and trusts her. Ivelisse has beet out for days. Prema easily engages in conversation if she is interested in talking.
--- NOTE | 2019-06-10 17:32 | CMPROGNOTE_ITS ---
Care Management Progress Note S/O: Sitting up in bed speaking with her friend, Ana Ulloa, on the phone. Status changed to [facility] I today for IV antibiotic therapy to address the findings from her recent urine culture. . A: 63 y.o. female admitted to [facility] seeking longterm placement and now requiring skilled service for IV antibiotic therapy. P: cONTINUE TO SEEK PLACEMENT.
--- NOTE | 2019-06-10 17:32 | PDOC.CMPRO ---
Care Management Progress Note S/O: Sitting up in bed speaking with her friend, Ana Ulloa, on the phone. Status changed to [facility] I today for IV antibiotic therapy to address the findings from her recent urine culture. . A: 63 y.o. female admitted to [facility] seeking [facility] placement and now requiring skilled service for IV antibiotic therapy. P: cONTINUE TO SEEK PLACEMENT.
[2019-06-10] MEDS: clonazePAM 1 MG TAB 2 MG PO (20:35)
[2019-06-10] MEDS: Zolpidem 5 MG TAB PO (20:36)
[2019-06-10] MEDS: Mylanta Suspension 30 ML CUP PO (21:11)
[2019-06-10] MEDS: Normal Saline Flush 10 ML SYR IVP (23:45)
[2019-06-11 03:25] VITALS: BP 82/58; PULSE 62
[2019-06-11] MEDS: oxyCODONE 5 mg/Acetaminophen 325 mg TAB 1 TAB PO ×3 (07:12→21:03)
[2019-06-11 07:25] VITALS: BP 94/62; PULSE 105; RESP 20; TEMP 36.5; O2SAT 98
[2019-06-11 07:32] VITALS: RESP 18
[2019-06-11] MEDS: Budesonide/Formoterol 160/4.5 6 GM 60 PUFF INH IH ×2 (08:12→21:03)
[2019-06-11 08:20] VITALS: RESP 14
[2019-06-11] MEDS: Lactobacillus Acidophilus CAP 1 CAP PO ×3 (08:57→21:03)
[2019-06-11] MEDS: Pantoprazole 40 MG TABCR PO (08:57)
[2019-06-11] MEDS: Nystatin 500000 UNITS/5 ML SUSP 5ML CUP PO ×3 (08:57→21:03)
[2019-06-11] MEDS: Glucosamine 500 MG CAP PO ×2 (08:57→21:03)
[2019-06-11] MEDS: Cyanocobalamin 100 MCG TABLET PO (08:58)
[2019-06-11] MEDS: Ascorbic Acid 500 MG TAB PO ×2 (08:58→21:03)
[2019-06-11] MEDS: Anastrozole 1 MG TAB PO (08:58)
[2019-06-11] MEDS: Loperamide 2 MG CAP PO ×3 (08:58→21:03)
[2019-06-11] MEDS: Folic Acid 1 MG TAB 2 MG PO (08:59)
[2019-06-11] MEDS: Ferrous Sulfate 325 MG TAB PO (08:59)
[2019-06-11] MEDS: Nystatin POWDER 60 GM JAR TP ×3 (10:01→21:05)
[2019-06-11] MEDS: Triamcinolone 0.1% CR 15 GM TUBE TP ×2 (10:01→21:04)
[2019-06-11] MEDS: Acetaminophen 325 MG TAB PO (11:08)
[2019-06-11] MEDS: Mylanta Suspension 30 ML CUP PO (11:09)
[2019-06-11] MEDS: Ergocalciferol 50000 UNITS CAP PO (11:09)
--- NOTE | 2019-06-11 11:19 | PGE_ITS ---
Date of Service Date of service: 06/10/19 Time of Service: 17:00 Subjective Interval history since last seen: The patient's urine culture grew ESBL enterobacter rather than VRE. Linezolid was d/c'ed and cefepime initiated (per microbiology lab, the ESBL enterobacter is, in fact, still sensitive to Cefepime). While the patient has a listed allergy to keflex, she was previously able to tolerate ceftriaxone. We will continue cefepime for now and monitor for any signs of allergy. She was converted to Swing Bed Level 1. Objective Objective Clinical Data: Vital Signs Temperature 36.5 C 06/11/19 07:25 Temperature Source Tympanic 06/11/19 07:25 Pulse 105 H 06/11/19 07:25 Pulse Rhythm Regular 06/11/19 10:20 Respiratory Rate 18 06/11/19 07:32 Respiratory Effort 06/11/19 10:20 Respiratory Depth Normal 06/11/19 10:20 Respiratory Pattern Normal 06/11/19 10:20 Blood Pressure 94/62 L 06/11/19 07:25 Pulse Oximetry 98 06/11/19 07:25 Oxygen Delivery Method Nasal Cannula 06/11/19 07:25 Oxygen Flow Rate 2 06/11/19 07:25 Pain Level 6 06/11/19 11:08 Comment 06/08/19 12:00 Intake & Output 06/10/19 06/10/19 06/11/19 11:59 23:59 11:59 Intake Total 50 / 50 530 / 530 Output Total 800 / 2450 1650 / 2450 1425 / 1425 Balance -800 / -2400 -1600 / -2400 -895 / -895 Intake: IV 50 / 50 50 / 50 Oral 480 / 480 Output: Drainage 300 / 800 500 / 800 325 / 325 Right Abdomen 300 / 800 500 / 800 325 / 325 Urine 500 / 1650 1150 / 1650 1100 / 1100 Other: Urine Color Yellow Yellow Yellow Urine Appearance Clear Clear Clear Stool Size Large Small Copious Stool Characteristics Soft Soft Soft Formed Formed Brown Laboratory Results WBC 5.88 k/cumm (4.4-10.8) 06/09/19 07:00 RBC 3.76 m/cumm (4.00-5.20) L 06/09/19 07:00 Hgb 12.6 g/dL (12.0-15.5) 06/09/19 07:00 Hct 39.4 % (36.0-46.0) 06/09/19 07:00 MCV 104.8 fL (80-95) H 06/09/19 07:00 MCH 33.5 pg (27.0-33.0) H 06/09/19 07:00 MCHC 32.0 g/dL (32.0-36.0) 06/09/19 07:00 RDW 14.0 % (11.7-14.6) 06/09/19 07:00 Plt Count 138 x1000/uL (130-400) 06/09/19 07:00 MPV 10.8 fL (8.0-11.0) 06/09/19 07:00 Yellow (Yellow) 06/07/19 12:15 Cloudy (Clear) 06/07/19 12:15 5.5 (5-8) 06/07/19 12:15 Ur Specific [place] 1.015 (1.005-1.025) 06/07/19 12:15 Trace mg/dL (Negative) H 06/07/19 12:15 Negative mg/dL (Negative) 06/07/19 12:15 Small (Negative) H 06/07/19 12:15 Positive (Negative) H 06/07/19 12:15 Negative (Negative) 06/07/19 12:15 0.2 EU/dL (Up TO 0.2) 06/07/19 12:15 Ur Leukocyte Esterase Large (Negative) H 06/07/19 12:15 Not Applicable 06/07/19 12:15 >50 HPF (0-5) 06/07/19 12:15 Ur Epithelial Cells Not Applicable 06/07/19 12:15 Not Applicable 06/07/19 12:15 Not Applicable 06/07/19 12:15 Not Applicable 06/07/19 12:15 Ur Culture Indicated? C&s done as ordered 06/07/19 12:15 Negative mg/dL (Negative) 06/07/19 12:15
[2019-06-11] MEDS: Metoprolol 25 MG TAB PO ×2 (13:42→21:03)
[2019-06-11] MEDS: CEFEPIME 1 GM in Normal Saline 50 ML IVPB ×2 (13:43→23:42)
[2019-06-11] MEDS: Normal Saline Flush 10 ML SYR IVP ×2 (13:44→23:42)
--- NOTE | 2019-06-11 16:37 | CMPROGNOTE_ITS ---
Care Management Progress Note S/O: Prema was very pleased to be off of contact precautions. PT assisted her up to her electric Wheel Chair and she maneuvered herself around the hallways. Expecting her son, Vlad, to be here over the weekend to visit. A: 63 y.o. female admitted to [facility] I to receive IV antibiotics P: Seeking shelter placement. She has an appointment at [facility] to be fitted for her new electric wheelchair on July 08 at 12:30. It will be a 3 hour appointment and [facility] will need to be scheduled for transport and to remain there to transport back. Ana will accompany her to the appointment.
[2019-06-11 16:55] VITALS: BP 92/63; PULSE 94; RESP 19; TEMP 36.4; O2SAT 97
--- NOTE | 2019-06-11 18:18 | IN_ITS ---
Date of service: 06/11/19 Time of Service: 14:56 PT Notes Inpatient Physical Therapy Evaluation Date: 06/11/2019 Referring Doctor: Francheska Charles MD PT Orders: PT CONSULT: Assist with transfers to bed, chair, and commode Precautions: Fall. Standard. Non-ambulatory. Patient Profile/Admitting Diagnosis : Patient is a 63-year-old female with past medical history significant for cirrhosis of liver, atrial fibrillation, attention deficit disorder, hypothyroidism and obesity who presented to the ED on 05/24/2019 with abdominal pain and nausea and some subjective complaint of feeling sick for 1 week associated with 2 previous ED visits now with pneumonia and urinary tract infection. Patient was discontinued from skilled physical therapy services per patient request on 05/28/2019 as patient stated that she does not have the energy for it nor interest to participate in skilled services. However, for the past 2 days patient has requested resumption of skilled PT services to address mobility impairments. Patient is converted to swing bed level 1 with referral for physical therapy to address transfer task performance. Patient is off of contact precautions as of today. PMHX: Medical History ADD (attention deficit disorder) Angina at rest Asthma Atrial fibrillation (Chronic) Bilateral cataracts (Chronic) Breast cancer Chest pain, atypical Chronic back pain (Chronic) Chronic rhinitis Cirrhosis of liver Compression fracture of spine Decreased visual acuity Depression (Chronic) Diastolic heart failure (Chronic) DJD (degenerative joint disease) (Chronic) Gastric bypass status for obesity GI (gastrointestinal bleed) History of DVD (Chronic) History of paroxysmal supraventricular tachycardia History of PSVT (paroxysmal supraventricular tachycardia) (Chronic) Hx of deep venous thrombosis Hyperparathyroidism , secondary, non-renal Hypertension IBS (irritable bowel syndrome) Insomnia Morbid obesity with BMI of 45.0-49.9, adult (Chronic) STACEY (obstructive sleep apnea) (Chronic) Osteoarthritis Osteopenia Oxygen dependent Paroxysmal atrial fibrillation (Chronic) PUD (peptic ulcer disease) Pulmonary HTN Right heart failure with reduced right ventricular function (Chronic) Superficial thrombophlebitis Tricuspid regurgitation Surgical History Breast, Mastectomy EGD - MAC Gastric Bypass History of biliary T-tube placement (Resolved 09/01/18) Social History/Home Situation: Patient is not a fully reliable historian. She states that she has been non-ambulatory since the day before Carla of last year. She reports that she has a motorized wheelchair that she uses inside the house and that she puts it adjacent to her bed and she transfers directly without the need for standing up. Patient reports that she pays somebody out of pocket to come into the house to help out several days a week in the morning. Equipment owned/DME: Motorized wheelchair, hospital bed, CPAP machine Subjective: Patient reports that she did not sleep well last night and she does not feel well today. She feels tired and would prefer not to do anything. PT evaluation had to be offered 2-3 times today to patient. She finally agreed to doing bed level exercises but declined on doing any out of bed activities. Objective: General Observation: Patient seen resting in bed. Femoral central venous access on the left side. Anti-thromboembolic pump on bilateral legs. IV in right UE. Gao catheter in place. Mental Status: Alert and oriented as to person, plac, and time. Pain: 3/10 on low back area ROM: Right Upper Extremity: Shoulder Flexion WFL. Shoulder abduction WFL. Elbow flexion WFL. Wrist flexion WFL. Functional opening and closing of hand WFL. Left Upper Extremity: Shoulder Flexion WFL. Shoulder abduction WFL. Elbow flexion WFL. Wrist flexion WFL. Functional opening and closing of hand WFL. Right Lower Extremity: Hip flexion WFL. Hip abduction WFL. Knee flexion WFL. Ankle dorsiflexion WFL. Ankle plantarflexion WFL. Left Lower Extremity: Hip flexion WFL. Hip abduction WFL. Knee flexion WFL. Ankle dorsiflexion WFL. Ankle plantarflexion WFL. Strength: Right Upper Extremity: Shoulder flexors 4-/5. Shoulder abductors 4-/5. Elbow flexors 4-/5. Elbow extensors 4-/5. Presentation Team Member strong. Left Upper Extremity: Shoulder flexors 4-/5. Shoulder abductors 4-/5. Elbow flexors 4-/5. Elbow extensors 4-/5. Presentation Team Member strong. Right Lower Extremity: Hip flexors 3-/5. Hip abductors 3-/5. Knee flexors 3-/5. Knee extensors 3-/5. Ankle dorsiflexors 3-/5. Ankle plantarflexors 3-/5. Left Lower Extremity:Hip flexors 3-/5. Hip abductors 3-/5. Knee flexors 3-/5. Knee extensors 3-/5. Ankle dorsiflexors 3-/5. Ankle plantarflexors 3-/5. Sensation: Intact as to pain and pressure on bilateral lower extremities. Bed Mobility/Transfers: Rolling moderate assist Supine to sit maximum assist Sit to supine maximum assist Sit to stand not tested. Patient not ambulatory. Stand to sit not tested. Patient not ambulatory. Bed to chair not tested. Patient not ambulatory. Chair to bed not tested. Patient not ambulatory. Gait: Patient is nonambulatory. Unable to test. Balance: Static Sitting: Poor Dynamic Sitting: Poor Static Standing: Unable Dynamic Standing: Unable Special Tests: Mobility Limitations Standardized Measure [facility] AM-PAC 6 clicks Basic Mobility Inpatient Short Form: Raw Score: 14 CMS Score: 61% deficit Informed Consent/Education: Patient instructed in purpose of PT consult and plan of care. Assessment: Patient presents with clinical signs and symptoms consistent with current/admitting diagnoses that have resulted to mobility limitations, gait instability, generalized weakness, and impairment of motor control as demonstrated by the following impairment level findings: 1. Decreased strength to B LE major muscle groups 2. Impaired sitting/standing balance 3. Impaired activity tolerance 4. Limitation of joint range of motion in BLE joints Impairments are contributing to the following functional limitations: 1. Dependent bed mobility skills 2. Increased dependence with transfers 3. Increase completion time for mobility ADL performance 4. Increased fall risk Patient is assessed as a 51299 high complexity based on the following: History: 63-year-old obese female with diagnosis of sepsis, healthcare acquired pneumonia, hypotension, and acute on chronic kidney injury, and dehydration Examination: Demonstrable impairment in strength, balance, and range of motion with underlying impairments and functional limitations as documented above Presentation:Evolving Decision Makin high complexity Goals: Goals X1 week 1. Supine-Sit independent 2. Sit-Supine independent 3. Sit-Stand independent 4. Stand-Sit independent 5. Bed-Chair independent 6. Chair-Bed independent 7. Set up with all transfers using slide technique Plan of Care/Treatment Plan: 1-2x/day, 7 days/week x 1 week. Plan of care has been reviewed with the PIPE SMOKER MACHINE OPERATOR providing the service under Physical Therapy direction. Initiate Physical Therapy intervention for strengthening, bed mobility, transfers, gait, stairs, balance training, use of assistive device. DISCHARGE RECOMMENDATIONS: Patient will benefit from custodial facility placement in order to progress mobility level, strength, and balance in preparation for a safe discharge to home. TREATMENT CODE/TIME: 70726 x 38 minutes, 9753 0 x 22 minutes beginning at 14:56 PM. Thank you very much for this referral. Yajaira Harrison PT, DPT, CLT [facility]
--- NOTE | 2019-06-11 19:04 | W.PM.PROGNOT ---
Date of Service Date of service: 06/11/19 Time of Service: 19:04 Assessment and Plan (1) Infection caused by Enterobacter cloacae: Current visit: Yes Status: Acute UTI. Gao changed. On cefepime day 2 - sensitive per microbio. Complete 1 week course. (2) UTI (urinary tract infection): Current visit: Yes Status: Acute As above (3) STACEY (obstructive sleep apnea): Current visit: No Status: Chronic Continue CPAP (4) Paroxysmal atrial fibrillation: Current visit: No Status: Chronic Sounds regular currently. No change in current therapy (5) DVT prophylaxis: Current visit: No Status: Acute Not requiring (swing bed level 1) (6) Discharge planning issues: Current visit: Yes Status: Acute Swing bed level 1 while treating for UTI. Disposition is an issue Subjective Interval history since last seen: Prema states that she is feeling better, but the bright light bothers her eyes. Denies dizziness, chest pain, shortness of breath, nausea. She asks me to call her son - I did, left a voicemail. Exam Narrative Exam Narrative: General: obese female, A&OX3, looks better than I have ever seen her HEENT: EOMI, MMM Heart: RRR, no m/r/g/ Lungs: CTAB GI: abdomen is soft, nontender, nondistended Extremities: BLE lymphedema, no c/c Objective Objective Clinical Data: Vital Signs Temperature 36.4 C L 06/11/19 16:55 Temperature Source Tympanic 06/11/19 16:55 Pulse 94 H 06/11/19 16:55 Pulse Rhythm Regular 06/11/19 10:20 Respiratory Rate 19 06/11/19 16:55 Respiratory Effort 06/11/19 10:20 Respiratory Depth Normal 06/11/19 10:20 Respiratory Pattern Normal 06/11/19 10:20 Blood Pressure 92/63 L 06/11/19 16:55 Pulse Oximetry 97 06/11/19 16:55 Oxygen Delivery Method Nasal Cannula 06/11/19 16:55 Oxygen Flow Rate 2 06/11/19 16:55 Pain Level 0 06/11/19 16:55 Comment 06/08/19 12:00 Intake & Output 06/10/19 06/11/19 06/11/19 23:59 11:59 23:59 Intake Total 50 / 50 530 / 830 300 / 830 Output Total 1650 / 2450 1425 / 1425 Balance -1600 / -2400 -895 / -595 300 / -595 Intake: IV 50 / 50 50 / 100 50 / 100 Oral 480 / 730 250 / 730 Output: Drainage 500 / 800 325 / 325 Right Abdomen 500 / 800 325 / 325 Urine 1150 / 1650 1100 / 1100 Other: Urine Color Yellow Yellow Urine Appearance Clear Clear Stool Size Small Copious Stool Characteristics Soft Soft Formed Formed Brown Laboratory Results WBC 5.88 k/cumm (4.4-10.8) 06/09/19 07:00 RBC 3.76 m/cumm (4.00-5.20) L 06/09/19 07:00 Hgb 12.6 g/dL (12.0-15.5) 06/09/19 07:00 Hct 39.4 % (36.0-46.0) 06/09/19 07:00 MCV 104.8 fL (80-95) H 06/09/19 07:00 MCH 33.5 pg (27.0-33.0) H 06/09/19 07:00 MCHC 32.0 g/dL (32.0-36.0) 06/09/19 07:00 RDW 14.0 % (11.7-14.6) 06/09/19 07:00 Plt Count 138 x1000/uL (130-400) 06/09/19 07:00 MPV 10.8 fL (8.0-11.0) 06/09/19 07:00 Yellow (Yellow) 06/07/19 12:15 Cloudy (Clear) 06/07/19 12:15 5.5 (5-8) 06/07/19 12:15 Ur Specific [place] 1.015 (1.005-1.025) 06/07/19 12:15 Trace mg/dL (Negative) H 06/07/19 12:15 Negative mg/dL (Negative) 06/07/19 12:15 Small (Negative) H 06/07/19 12:15 Positive (Negative) H 06/07/19 12:15 Negative (Negative) 06/07/19 12:15 0.2 EU/dL (Up TO 0.2) 06/07/19 12:15 Ur Leukocyte Esterase Large (Negative) H 06/07/19 12:15 Not Applicable 06/07/19 12:15 >50 HPF (0-5) 06/07/19 12:15 Ur Epithelial Cells Not Applicable 06/07/19 12:15 Not Applicable 06/07/19 12:15 Not Applicable 06/07/19 12:15 Not Applicable 06/07/19 12:15 Ur Culture Indicated? C&s done as ordered 06/07/19 12:15 Negative mg/dL (Negative) 06/07/19 12:15
[2019-06-11] MEDS: clonazePAM 1 MG TAB 2 MG PO (21:03)
[2019-06-11] MEDS: Zolpidem 5 MG TAB PO (21:04)
[2019-06-12 01:59] VITALS: RESP 14
[2019-06-12 04:15] VITALS: BP 96/61; PULSE 115; RESP 18; TEMP 35.8; O2SAT 98
[2019-06-12] MEDS: Metoprolol 25 MG TAB PO ×2 (04:17→20:25)
[2019-06-12 08:04] VITALS: BP 100/56; PULSE 101; RESP 19; TEMP 36.5; O2SAT 99
[2019-06-12] MEDS: Nystatin 500000 UNITS/5 ML SUSP 5ML CUP PO ×3 (08:20→20:25)
[2019-06-12] MEDS: oxyCODONE 5 mg/Acetaminophen 325 mg TAB 1 TAB PO ×2 (08:20→17:11)
[2019-06-12] MEDS: Acetaminophen 325 MG TAB PO ×3 (08:21→23:23)
[2019-06-12] MEDS: Glucosamine 500 MG CAP PO ×2 (08:22→20:25)
[2019-06-12] MEDS: Ascorbic Acid 500 MG TAB PO ×2 (08:22→20:25)
[2019-06-12] MEDS: Lactobacillus Acidophilus CAP 1 CAP PO ×3 (08:22→20:25)
[2019-06-12] MEDS: Folic Acid 1 MG TAB 2 MG PO (08:22)
[2019-06-12] MEDS: Pantoprazole 40 MG TABCR PO (08:22)
[2019-06-12] MEDS: Triamcinolone 0.1% CR 15 GM TUBE TP ×2 (08:23→20:26)
[2019-06-12] MEDS: Cyanocobalamin 100 MCG TABLET PO (08:23)
[2019-06-12] MEDS: Nystatin POWDER 60 GM JAR TP ×2 (08:23→20:27)
[2019-06-12] MEDS: Ferrous Sulfate 325 MG TAB PO (08:23)
[2019-06-12] MEDS: Loperamide 2 MG CAP PO ×3 (08:23→20:25)
[2019-06-12] MEDS: Budesonide/Formoterol 160/4.5 6 GM 60 PUFF INH IH ×2 (08:34→20:26)
--- NOTE | 2019-06-12 10:21 | PT.INTREAT ---
Date of service: 06/12/19 Time of Service: 10:21 PT Notes 06/12/19 SUBJECTIVE: Prema stating she needs to use the bed elena. After encouragement pt in agreement to transfer to the commode. OBJECTIVE: Supine in bed upon entering. DATA ENTRY OPERATOR present. TRANSFERS BED TO COMMODE: S COMMODE to BED: S Pt requires assistance with set up of commode including step stool in place. Assist on donning and doffing shoes and socks. She transfers well from the bed to the commode with minimal cues. Upon returning back to the bed she notes the set up is different than it is at home. She is unable to slide on the commode to the bed. Instead she rolls her trunk on the bed and places her feet up onto the commode to scoot herself back into the bed. She would not allow any assist from this therapist or DATA ENTRY OPERATOR. ASSESSMENT: Pt transfers well to the commode from the bed after set up in place. Transfer back to bed is more difficult with pt stating the set up is different than at home. PLAN: Continue to work on transfer training and UE strengthening as she tolerates. Direct time: 30 minutes Total time: 30 minutes Theodora Arriola PTA Clinic location: [facility] [place], [place]
[2019-06-12] MEDS: Normal Saline Flush 10 ML SYR IVP ×2 (11:29→23:24)
[2019-06-12] MEDS: CEFEPIME 1 GM in Normal Saline 50 ML IVPB ×2 (11:29→23:23)
--- NOTE | 2019-06-12 16:20 | CMPROGNOTE_ITS ---
Care Management Progress Note S/O: Prema was sitting up in bed visiting with her son Vlad and his Anisley. They live in [facility] and are here to assist with closing her apartment and facilitating her placement. Requested and provided with a copy of the Swing Bed contract, Advance directives and a revised HIPAA form. A: 63 y.o. female admitted to [facility] to receive IV antibiotics P: Seeking roasterman placement. Referrals have been sent to several facilities and we have not received a bed offer as of today. We will continue to send referrals and actively search for an appropriate placement.
[2019-06-12 21:08] VITALS: BP 100/65; PULSE 83; RESP 19; TEMP 36.2; O2SAT 99
[2019-06-12] MEDS: clonazePAM 1 MG TAB 2 MG PO (21:36)
[2019-06-12] MEDS: Zolpidem 5 MG TAB PO (21:36)
[2019-06-12 22:59] VITALS: RESP 14
[2019-06-13 03:44] VITALS: BP 95/56; PULSE 79; RESP 19; TEMP 36.4; O2SAT 100
[2019-06-13] MEDS: Metoprolol 25 MG TAB PO (04:06)
[2019-06-13 04:19] VITALS: RESP 14
[2019-06-13] MEDS: Pantoprazole 40 MG TABCR PO (08:21)
[2019-06-13] MEDS: Nystatin 500000 UNITS/5 ML SUSP 5ML CUP PO ×3 (08:21→20:14)
[2019-06-13] MEDS: Triamcinolone 0.1% CR 15 GM TUBE TP ×2 (08:21→20:14)
[2019-06-13] MEDS: Folic Acid 1 MG TAB 2 MG PO (08:21)
[2019-06-13] MEDS: Nystatin POWDER 60 GM JAR TP ×3 (08:21→20:15)
[2019-06-13] MEDS: oxyCODONE 5 mg/Acetaminophen 325 mg TAB 1 TAB PO ×2 (08:22→20:13)
[2019-06-13] MEDS: Cyanocobalamin 100 MCG TABLET PO (08:23)
[2019-06-13] MEDS: Lactobacillus Acidophilus CAP 1 CAP PO ×3 (08:23→20:12)
[2019-06-13] MEDS: Glucosamine 500 MG CAP PO ×2 (08:23→20:12)
[2019-06-13] MEDS: Ferrous Sulfate 325 MG TAB PO (08:23)
[2019-06-13] MEDS: Loperamide 2 MG CAP PO ×3 (08:23→20:13)
[2019-06-13] MEDS: Anastrozole 1 MG TAB PO (08:23)
[2019-06-13] MEDS: Ascorbic Acid 500 MG TAB PO ×2 (08:23→20:13)
--- NOTE | 2019-06-13 10:12 | PT.INTREAT ---
Date of service: 06/13/19 Time of Service: 10:12 PT Notes 06/13/19 SUBJECTIVE: Pt stating she is okay today. She does not need to use the commode. OBJECTIVE: Supine in bed. Agreeable to PT treatment. THEREX: Pt performs bed exercises for light UE/LE strengthening. Utilized yellow thera band for increased resistance in the UE's. See flow sheet. ASSESSMENT: Pt was encouraged to continue with her exercises often throughout the day to stay active. She is able to complete SLR in supine although notes that she cannot hold herself in standing. We will continue to assess. PLAN: Continue current POC and assist with transfers as necessary. Treatment time: 15 minutes [id number] Theodora Arriola PTA Clinic location: [facility] [place], [place]
[2019-06-13] MEDS: Budesonide/Formoterol 160/4.5 6 GM 60 PUFF INH IH ×2 (10:31→20:12)
[2019-06-13] MEDS: Normal Saline Flush 10 ML SYR IVP ×2 (11:43→23:39)
[2019-06-13] MEDS: CEFEPIME 1 GM in Normal Saline 50 ML IVPB ×2 (11:43→23:39)
[2019-06-13 12:10] VITALS: RESP 14
[2019-06-13] MEDS: Acetaminophen 325 MG TAB PO (13:25)
[2019-06-13 14:17] VITALS: BP 82/43; PULSE 62; RESP 20; TEMP 36.7; O2SAT 97
--- NOTE | 2019-06-13 16:06 | CMPROGNOTE_ITS ---
Care Management Progress Note S/O: Prema was sitting up in bed watching a movie on TV and eating her dinner. Accepts the fact that Vlad and Ainsley have cleaned out her apartment and she will never be going back to that address. Referral has been faxed to [facility] to schedule the Wheel Chair van for Prema's 07/08/19 appointment in [place] to be fitted for her new wheelchair. Provided the Hospital address as her molded goods spot picker point. A: 63 y.o. female admitted to [facility] to receive IV antibiotics P: Meeting scheduled Thursday 06/14 with the Prema Godinez Christopher, Terri from [facility] and [facility] Care Management. Vlad has requested a list of the referrals that have been made so far. Referrals have been sent to several facilities and we have not received a bed offer as of today. We will continue to send referrals and actively search for an appropriate placement.
[2019-06-13] MEDS: clonazePAM 1 MG TAB 2 MG PO (20:19)
[2019-06-13] MEDS: Zolpidem 5 MG TAB PO (20:20)
[2019-06-13 21:19] VITALS: BP 68/53; PULSE 60; RESP 18; TEMP 36.8; O2SAT 100
[2019-06-14] MEDS: oxyCODONE 5 mg/Acetaminophen 325 mg TAB 1 TAB PO ×3 (04:02→21:50)
[2019-06-14 04:07] VITALS: BP 95/55; PULSE 59; RESP 19; TEMP 36.4; O2SAT 98
[2019-06-14] MEDS: Budesonide/Formoterol 160/4.5 6 GM 60 PUFF INH IH ×2 (08:20→20:46)
[2019-06-14 08:21] VITALS: RESP 14
[2019-06-14] MEDS: Loperamide 2 MG CAP PO ×2 (09:23→13:20)
[2019-06-14] MEDS: Cyanocobalamin 100 MCG TABLET PO (09:23)
[2019-06-14] MEDS: Glucosamine 500 MG CAP PO ×2 (09:25→20:05)
[2019-06-14] MEDS: Ergocalciferol 50000 UNITS CAP PO (09:26)
[2019-06-14] MEDS: Acetaminophen 325 MG TAB PO ×2 (09:26→20:07)
[2019-06-14] MEDS: Lactobacillus Acidophilus CAP 1 CAP PO ×3 (09:27→20:05)
[2019-06-14] MEDS: Ferrous Sulfate 325 MG TAB PO (09:27)
[2019-06-14] MEDS: Folic Acid 1 MG TAB 2 MG PO (09:27)
[2019-06-14] MEDS: Ascorbic Acid 500 MG TAB PO ×2 (09:28→20:08)
[2019-06-14] MEDS: Pantoprazole 40 MG TABCR PO (09:28)
[2019-06-14] MEDS: Nystatin POWDER 60 GM JAR TP ×2 (09:31→20:12)
[2019-06-14] MEDS: Nystatin 500000 UNITS/5 ML SUSP 5ML CUP PO ×2 (10:16→20:08)
--- NOTE | 2019-06-14 10:21 | NUR.NOTE ---
Nursing Note: Explained to this patient that the MD wants this RN to remove her arndt catheter. Patient stated that she would allow us to change the catheter but refuses to have the catheter removed and not replaced at this time
[2019-06-14] MEDS: CEFEPIME 1 GM in Normal Saline 50 ML IVPB ×2 (11:14→22:05)
[2019-06-14] MEDS: Normal Saline Flush 10 ML SYR IVP ×2 (11:15→22:07)
[2019-06-14] MEDS: Metoprolol 25 MG TAB PO (13:20)
[2019-06-14 13:22] VITALS: BP 92/55; PULSE 103
--- NOTE | 2019-06-14 14:47 | PT.INTREAT ---
Date of service: 06/14/19 Time of Service: 14:47 PT Notes Inpatient Physical Therapy Treatment Note [facility] Date: 06/14/19 PRECAUTIONS: Fall SUBJECTIVE: Prema states that she has had a very busy day today, and that her son is here visiting and today is his last day in the area. OBJECTIVE: PAIN: No c/o pain BED MOBILITY/TRANSFERS: Refused. Patient states that she needs to have a bowel movement, however, would like to use the bed elena rather than the commode. THEREX: Issued and reviewed UE and LE strengthening HEP. Patient reports that she is familiar with the exercises, and understands the purpose of an HEP. ASSESSMENT: Will continue to attempt to get patient participation in transfer training, as well as strengthening. PLAN: Continue with PT's POC TREATMENT CODE/TIME: 10 minutes; [id number]
--- NOTE | 2019-06-14 14:52 | NUR.NOTE ---
Nursing Note: Patient rang earlier to get on the bedpan. LIBRADO Vines came to this RN to report that the patient has been on the bedpan for 35 minutes but is now refusing to get off the bedpan, is crying and kicked him out of her room. This RN went to the patient's room to see what was wrong. The patient is still crying and stated that she just wants to be left alone. Patient does not want to speak anymore and asked that this RN leave the room.
--- NOTE | 2019-06-14 17:20 | PDOC.CMPRO ---
- If Service Date Differs Date of service: 06/14/19 Time of Service: 17:20 Care Management Progress Note S/O:MICHAEL met with Prema at the bedside her family and community team is present. Team meeting today with the Herbert, Prema, Tracey Chu from [facility] and [facility] Care Management to discuss plan for discharged disposition. Vlad has requested a list of the referrals that have been made so far which he was provided. Referrals have been sent to several facilities and we have not received a bed offer as of today. Prema is tearful at the meeting she feels that she has lost control of making her own decisions. She is able to talk about her previous fdc setting and [facility], she was comfortable there and does not understand why cannot return. Her son and daughter in law also request answers as to why she is not able to transition to a LTC facility. CM reviewed process of referrals and the difficulty at times that can be met by receiving facilities. MICHAEL did provide Prema's son with a list of recent referrals and updates as well as a list of all the facilities in the area. A: 63 y.o. female admitted to [facility] to receive IV antibiotics P: . We will continue to send referrals and actively search for an appropriate placement. Plan 06/14/19 Prema has an appointment on 07/08/13 at 1230 with the wheelchair clinic at [facility]. [facility] has been arranged and will transport her and her friend Ana. Prema will remain in SB1 or SB2 until safe placement can be obtained Prema will continue to work with PT and OT for transfers to and from her wheelchair Prema agrees to facility referrals including LTC and AFC homes. Son would like to obtain her medical records, MICHAEL presented a release to Prema and reviewed with her she is unwilling to sign today and will consider it. She agrees he can have most recent stay information however she does not want him to have her childhood or young adult records.
[2019-06-14 20:00] VITALS: O2SAT 98
[2019-06-14] MEDS: Triamcinolone 0.1% CR 15 GM TUBE TP (20:12)
[2019-06-14 20:30] VITALS: BP 80/52; PULSE 70; RESP 20; TEMP 36.6; O2SAT 98
--- NOTE | 2019-06-14 20:40 | W.PM.PROGNOT ---
Date of Service Date of service: 06/14/19 Time of Service: 20:40 Subjective Interval history since last seen: Ms. Watson is currently hemodynamically stable and undergoing treatment for a complicated UTI. Patient had apparently discussed arndt catheter placement with her PCP, and upon verbal discussion with Dr. Charles (and review of her notes) it appears that she had conversed with patient's PCP Dr. Gutiérrez regarding the fact that patient was to keep her arndt catheter in place indefinitely. However, Mrs. Watson is prone to infections, has had multiple UTIs in the past with growth of VRE, Citrobacter Braakii, Enterobacter Aerogenes (Multi-Drug Resistant), Enterococcus Faecalis, E. Coli, Klebsiella Oxytoca, and Klebsiella Pneumoniae. She is also chronically incontinent of loose stools, rechecked for C.Diff and negative during this admission, making her a poor candidate for a chronic indwelling device. The patient is not a good candidate for chronic indwelling arndt. This has been explained to her in the past and her family today and during a conversation yesterday. Given her propensity to infections, prolonged hospitalizations, exposure to MDR pathogens, chronic diarrhea, and multiple antibiotic allergies, she is likely at risk for harm from recurrent infections in the setting of a chronic indwelling catheter. Her arndt was discontinued today, but the patient refused its removal. Prior conversation were had with patient regarding this, and she is aware of the dangers associated with this. Objective Objective Clinical Data: Vital Signs Temperature 36.4 C L 06/14/19 04:07 Temperature Source Tympanic 06/14/19 04:07 Pulse 103 H 06/14/19 13:22 Pulse Rhythm Regular 06/14/19 10:00 Respiratory Rate 19 06/14/19 04:07 Respiratory Effort Non-Labored 06/14/19 10:00 Respiratory Depth Normal 06/14/19 10:00 Respiratory Pattern Normal 06/14/19 10:00 Blood Pressure 92/55 L 06/14/19 13:22 Pulse Oximetry 98 06/14/19 04:07 Oxygen Delivery Method Nasal Cannula 06/14/19 04:07 Oxygen Flow Rate 3 06/14/19 04:07 Fraction of Inspired Oxygen (FIO2) 2 06/14/19 08:21 Pain Level 5 06/14/19 20:07 Comment 06/14/19 04:07 Intake & Output 06/13/19 06/14/19 06/14/19 23:59 11:59 23:59 Intake Total 550 / 558.333 410 / 770 360 / 770 Output Total 1075 / 2300 875 / 1725 850 / 1725 Balance -525 / -1741.667 -465 / -955 -490 / -955 Intake: IV 70 / 78.333 110 / 110 Oral 480 / 480 300 / 660 360 / 660 Output: Drainage 75 / 150 25 / 25 0 / 25 Right Abdomen 75 / 150 25 / 25 0 / 25 Urine 1000 / 2150 850 / 1700 850 / 1700 Other: Urine Color Yellow Yellow Yellow Urine Appearance Clear Clear Clear Urine Odor Normal Stool Size Copious Large Stool Characteristics Formed Formed Brown Brown Voiding Methods Indwelling Catheter Laboratory Results WBC 5.88 k/cumm (4.4-10.8) 06/09/19 07:00 RBC 3.76 m/cumm (4.00-5.20) L 06/09/19 07:00 Hgb 12.6 g/dL (12.0-15.5) 06/09/19 07:00 Hct 39.4 % (36.0-46.0) 06/09/19 07:00 MCV 104.8 fL (80-95) H 06/09/19 07:00 MCH 33.5 pg (27.0-33.0) H 06/09/19 07:00 MCHC 32.0 g/dL (32.0-36.0) 06/09/19 07:00 RDW 14.0 % (11.7-14.6) 06/09/19 07:00 Plt Count 138 x1000/uL (130-400) 06/09/19 07:00 MPV 10.8 fL (8.0-11.0) 06/09/19 07:00 Yellow (Yellow) 06/07/19 12:15 Cloudy (Clear) 06/07/19 12:15 5.5 (5-8) 06/07/19 12:15 Ur Specific [place] 1.015 (1.005-1.025) 06/07/19 12:15 Trace mg/dL (Negative) H 06/07/19 12:15 Negative mg/dL (Negative) 06/07/19 12:15 Small (Negative) H 06/07/19 12:15 Positive (Negative) H 06/07/19 12:15 Negative (Negative) 06/07/19 12:15 0.2 EU/dL (Up TO 0.2) 06/07/19 12:15 Ur Leukocyte Esterase Large (Negative) H 06/07/19 12:15 Not Applicable 06/07/19 12:15 >50 HPF (0-5) 06/07/19 12:15 Ur Epithelial Cells Not Applicable 06/07/19 12:15 Not Applicable 06/07/19 12:15 Not Applicable 06/07/19 12:15 Not Applicable 06/07/19 12:15 Ur Culture Indicated? C&s done as ordered 06/07/19 12:15 Negative mg/dL (Negative) 06/07/19 12:15
[2019-06-14] MEDS: Zolpidem 5 MG TAB PO (20:44)
[2019-06-14] MEDS: clonazePAM 1 MG TAB 2 MG PO (20:44)
[2019-06-15 06:29] VITALS: BP 95/57; PULSE 90
[2019-06-15] MEDS: Metoprolol 25 MG TAB PO ×3 (06:42→20:05)
[2019-06-15 07:25] VITALS: BP 98/51; PULSE 79; RESP 20; TEMP 36.6; O2SAT 95
[2019-06-15] MEDS: Anastrozole 1 MG TAB PO (08:34)
[2019-06-15] MEDS: Glucosamine 500 MG CAP PO ×2 (08:34→19:53)
[2019-06-15] MEDS: Folic Acid 1 MG TAB 2 MG PO (08:34)
[2019-06-15] MEDS: Pantoprazole 40 MG TABCR PO (08:34)
[2019-06-15] MEDS: Ascorbic Acid 500 MG TAB PO ×2 (08:34→19:53)
[2019-06-15] MEDS: Loperamide 2 MG CAP PO ×3 (08:34→19:53)
[2019-06-15] MEDS: Ferrous Sulfate 325 MG TAB PO (08:34)
[2019-06-15] MEDS: Cyanocobalamin 100 MCG TABLET PO (08:34)
[2019-06-15] MEDS: Lactobacillus Acidophilus CAP 1 CAP PO ×3 (08:34→19:53)
[2019-06-15] MEDS: Nystatin POWDER 60 GM JAR TP ×3 (08:35→21:00)
[2019-06-15] MEDS: Triamcinolone 0.1% CR 15 GM TUBE TP (08:35)
[2019-06-15] MEDS: CEFEPIME 1 GM in Normal Saline 50 ML IVPB ×2 (11:43→22:16)
--- NOTE | 2019-06-15 12:48 | PT.DS ---
Date of service 06/15/19 Time of Service 12:15 PT Notes Date: 06/15/2019 Referring Doctor: Francheska Charles MD PT Orders: PT CONSULT: Assist with transfers to bed, chair, and commode Precautions: Fall. Standard. Non-ambulatory. Treatment Dates: 06/11/19 - 06/15/19 Patient Profile/Admitting Diagnosis : Patient is a 63-year-old female with past medical history significant for cirrhosis of liver, atrial fibrillation, attention deficit disorder, hypothyroidism and obesity who presented to the ED on 05/24/2019 with abdominal pain and nausea and some subjective complaint of feeling sick for 1 week associated with 2 previous ED visits now with pneumonia and urinary tract infection. She has participated in 6 PT sessions over the past 5 days. She now demonstrates independence with transfers and has established an independent bed exercise program, and is appropriate for discharge from PT services in acute care setting. Social History/Home Situation: Prema states that she is feeling fine. She is resting in her chair and would like to get back to bed. She states that she doesn't want any assistance with the transfer, but would like someone to put her chair on the ballet soloist once she gets back in bed. Equipment owned/DME: Motorized wheelchair, hospital bed, CPAP machine Subjective: Patient reports that she did not sleep well last night and she does not feel well today. She feels tired and would prefer not to do anything. PT evaluation had to be offered 2-3 times today to patient. She finally agreed to doing bed level exercises but declined on doing any out of bed activities. Objective: General Observation: Patient seen resting in bed. Gao catheter in place. Mental Status: Alert and oriented as to person, place, and time. ROM: Right Upper Extremity: Shoulder Flexion WFL. Shoulder abduction WFL. Elbow flexion WFL. Wrist flexion WFL. Functional opening and closing of hand WFL. Left Upper Extremity: Shoulder Flexion WFL. Shoulder abduction WFL. Elbow flexion WFL. Wrist flexion WFL. Functional opening and closing of hand WFL. Right Lower Extremity: Hip flexion WFL. Hip abduction WFL. Knee flexion WFL. Ankle dorsiflexion WFL. Ankle plantarflexion WFL. Left Lower Extremity: Hip flexion WFL. Hip abduction WFL. Knee flexion WFL. Ankle dorsiflexion WFL. Ankle plantarflexion WFL. Strength: Right Upper Extremity: Shoulder flexors 4-/5. Shoulder abductors 4-/5. Elbow flexors 4-/5. Elbow extensors 4-/5. Insurance Counselor strong. Left Upper Extremity: Shoulder flexors 4-/5. Shoulder abductors 4-/5. Elbow flexors 4-/5. Elbow extensors 4-/5. Insurance Counselor strong. Right Lower Extremity: Hip flexors 3-/5. Hip abductors 3-/5. Knee flexors 3-/5. Knee extensors 3-/5. Ankle dorsiflexors 3-/5. Ankle plantarflexors 3-/5. Left Lower Extremity:Hip flexors 3-/5. Hip abductors 3-/5. Knee flexors 3-/5. Knee extensors 3-/5. Ankle dorsiflexors 3-/5. Ankle plantarflexors 3-/5. Sensation: Intact as to pain and pressure on bilateral lower extremities. Bed Mobility/Transfers: Rolling: independent with UE support to rails Supine to sit : independent with elevated head rest Sit to supine: independent Sit to stand: unable Stand to sit: unable Bed to chair: independent Chair to be: independent Gait: Patient is nonambulatory. Unable to test. Balance: Static Sitting: Fair Dynamic Sitting: Poor Static Standing: Unable Dynamic Standing: Unable Informed Consent/Education: Reviewed HEP Treatment: Today's session consisted of re-evaluation, followed by review of HEP and observation of bed mobility and transfer technique. Patient is able to effectively set up her chair position and performed modified slide transfer to bed from her w/c with supervision only. She is able to roll effectively with use of hand rails and with supervision only. Assessment: Patient presents with clinical signs and symptoms consistent with current/admitting diagnoses that have resulted to mobility limitations, gait instability, generalized weakness, and impairment of motor control. She has participated in 6 PT sessions over the past 5 days. She now demonstrates independence with transfers and has established an independent bed exercise program. Patient is now at baseline level of function, and is appropriate for discharge from PT services in acute care setting. She will require long-term care placement due to her chronic mobility deficits. Goals: Goals X1 week 1. Supine-Sit independent (met) 2. Sit-Supine independent (met) 3. Sit-Stand independent (refuses; patient does not stand at baseline) 4. Stand-Sit independent (refuses; patient does not stand at baseline) 5. Bed-Chair independent (met) 6. Chair-Bed independent (met) 7. Set up with all transfers using slide technique (met) Plan of Care/Treatment Plan: D/C from PT services, as patient is at baseline level of function. DISCHARGE RECOMMENDATIONS: Patient will require supervisor intermediates care placement. TREATMENT CODE/TIME: 58120 x 2, 30 minutes Jaye Nice, PT, DPT [facility]
--- NOTE | 2019-06-15 13:15 | CHAPLAIN ---
Prema was out the the halls today in her electric wheelchair. She has been unable to get out of bed for several days, then had her wheelchair delivered. She told me about the planning meeting yesterday with her son, Vlad, daughter in law, [facility] [employer] J2Ee Lead hanh Méndez, and someone from [facility]. Her son arrived on Friday and stayed until late yesterday. Prema seemed pleased that she was able to spend some time with him, other than in the meeting. She also seemed happy about being mobile again. She has been watching [employer] this morning, and an STRADDLE CARRIER OPERATOR cleaned and tidied up her room and Prema expressed her appreciation to the STRADDLE CARRIER OPERATOR.
--- NOTE | 2019-06-15 13:24 | PT.INTREAT ---
Date of service: 06/15/19 Time of Service: 10:30 PT Notes Inpatient Physical Therapy Treatment Note [facility] Date: 06/15/19 PRECAUTIONS: Fall, Non-ambulatory SUBJECTIVE: Prema is agreeable to getting up to sit in her motorized wheelchair, but states I do not stand and will not stand. OBJECTIVE: PAIN: No c/o pain BED MOBILITY/TRANSFERS Supine-sit: I Bed-Chair: I transfer from bed-chair, patient requests no assist during transfer Patient demonstrates independence with wheelchair mobility within room and with hallway navigation. ASSESSMENT: Patient tolerated session without complaint. She was able to demonstrate independence with [id number] transfer and vlm-[id number] transfer. PLAN: Continue with PT's POC TREATMENT CODE/TIME: 40 minutes; 68529 x3
[2019-06-15] MEDS: oxyCODONE 5 mg/Acetaminophen 325 mg TAB 1 TAB PO ×2 (13:51→22:33)
[2019-06-15] MEDS: Nystatin 500000 UNITS/5 ML SUSP 5ML CUP PO ×2 (13:51→19:51)
[2019-06-15] MEDS: Albuterol HFA 8 GM 60 PUFF INH IH (14:33)
[2019-06-15] MEDS: Mylanta Suspension 30 ML CUP PO (16:16)
[2019-06-15 19:51] VITALS: RESP 4
[2019-06-15] MEDS: Albuterol/Ipratropium 3 ML UPD VIAL UPD (19:51)
[2019-06-15 20:00] VITALS: O2SAT 95
[2019-06-15] MEDS: clonazePAM 1 MG TAB 2 MG PO (20:05)
[2019-06-15] MEDS: Zolpidem 5 MG TAB PO (20:05)
[2019-06-15] MEDS: Budesonide/Formoterol 160/4.5 6 GM 60 PUFF INH IH (20:06)
[2019-06-15 20:21] VITALS: RESP 1
[2019-06-15] MEDS: Normal Saline Flush 10 ML SYR IVP (22:17)
[2019-06-16 06:00] VITALS: BP 93/61; PULSE 84; RESP 20; TEMP 36.2; O2SAT 96
[2019-06-16] MEDS: Metoprolol 25 MG TAB PO ×3 (06:19→20:44)
[2019-06-16] MEDS: Nystatin 500000 UNITS/5 ML SUSP 5ML CUP PO ×3 (08:43→20:39)
[2019-06-16] MEDS: Folic Acid 1 MG TAB 2 MG PO (08:43)
[2019-06-16] MEDS: Loperamide 2 MG CAP PO ×2 (08:44→13:24)
[2019-06-16] MEDS: Ferrous Sulfate 325 MG TAB PO (08:44)
[2019-06-16] MEDS: Lactobacillus Acidophilus CAP 1 CAP PO ×3 (08:44→20:40)
[2019-06-16] MEDS: Anastrozole 1 MG TAB PO (08:44)
[2019-06-16] MEDS: Ascorbic Acid 500 MG TAB PO ×2 (08:44→20:41)
[2019-06-16] MEDS: Cyanocobalamin 100 MCG TABLET PO (08:44)
[2019-06-16] MEDS: Pantoprazole 40 MG TABCR PO (08:44)
[2019-06-16] MEDS: Glucosamine 500 MG CAP PO ×2 (08:44→20:40)
[2019-06-16] MEDS: Triamcinolone 0.1% CR 15 GM TUBE TP ×2 (08:45→20:46)
[2019-06-16] MEDS: Budesonide/Formoterol 160/4.5 6 GM 60 PUFF INH IH ×2 (08:46→20:46)
[2019-06-16] MEDS: Nystatin POWDER 60 GM JAR TP ×3 (08:47→20:45)
[2019-06-16] MEDS: CEFEPIME 1 GM in Normal Saline 50 ML IVPB ×2 (08:52→21:46)
[2019-06-16] MEDS: Ergocalciferol 50000 UNITS CAP PO (08:52)
[2019-06-16] MEDS: oxyCODONE 5 mg/Acetaminophen 325 mg TAB 1 TAB PO ×3 (08:52→21:45)
[2019-06-16] MEDS: Normal Saline Flush 10 ML SYR IVP (08:57)
[2019-06-16 10:23] VITALS: RESP 14
[2019-06-16 13:27] VITALS: BP 95/56; PULSE 77
[2019-06-16 20:30] VITALS: BP 96/67; PULSE 79; O2SAT 96
[2019-06-16] MEDS: clonazePAM 1 MG TAB 2 MG PO (20:39)
[2019-06-16] MEDS: Zolpidem 5 MG TAB PO (20:40)
[2019-06-16] MEDS: Acetaminophen 325 MG TAB PO (20:41)
[2019-06-17] MEDS: Metoprolol 25 MG TAB PO ×3 (06:53→21:37)
[2019-06-17 07:30] VITALS: BP 89/56; PULSE 59; RESP 20; TEMP 36; O2SAT 99
[2019-06-17] MEDS: Nystatin POWDER 60 GM JAR TP ×3 (09:00→19:47)
[2019-06-17] MEDS: Triamcinolone 0.1% CR 15 GM TUBE TP ×2 (09:00→19:46)
[2019-06-17] MEDS: Glucosamine 500 MG CAP PO ×2 (09:15→19:45)
[2019-06-17] MEDS: Cyanocobalamin 100 MCG TABLET PO (09:15)
[2019-06-17] MEDS: Lactobacillus Acidophilus CAP 1 CAP PO ×3 (09:15→19:45)
[2019-06-17] MEDS: Folic Acid 1 MG TAB 2 MG PO (09:15)
[2019-06-17] MEDS: Ferrous Sulfate 325 MG TAB PO (09:16)
[2019-06-17] MEDS: oxyCODONE 5 mg/Acetaminophen 325 mg TAB 1 TAB PO ×2 (09:16→22:21)
[2019-06-17] MEDS: Pantoprazole 40 MG TABCR PO (09:16)
[2019-06-17] MEDS: Ascorbic Acid 500 MG TAB PO ×2 (09:16→19:46)
[2019-06-17] MEDS: Budesonide/Formoterol 160/4.5 6 GM 60 PUFF INH IH ×2 (09:17→19:46)
[2019-06-17] MEDS: Normal Saline Flush 10 ML SYR IVP ×3 (09:22→23:04)
[2019-06-17] MEDS: CEFEPIME 1 GM in Normal Saline 50 ML IVPB ×2 (10:37→21:33)
[2019-06-17] MEDS: Mylanta Suspension 30 ML CUP PO (10:55)
--- NOTE | 2019-06-17 13:42 | CHAPLAIN ---
Prema was in bed finishing up a late breakfast when I visited. She told me about the friend she made at her previous long-term care facility, and talked some about her her son's visit last weekend. She seemed positive today and said she was appreciative of Flat Bed Operator Ivelisse Bermeo's daily visits.
[2019-06-17 14:30] VITALS: BP 90/63; PULSE 85
--- NOTE | 2019-06-17 15:06 | CMACTNOTE_ITS ---
- If Service Date Differs Date of service: 06/17/19 Time of Service: 15:06 Care Management Activity Note S/O: Prema has received cards from friends and family, she enjoys visiting with the [facility] and other supports ere at [facility]. Prema has been up to her electric wheelchair on occasion this week and encouraged to be out of bed more often. PT has discharged her she met goals to get to her chair she has not stood. CM did talk with PT and the patient to determine treatment goals and determine if she could restart with PT. PT will review and determine if they can collaborate on goals.CM updated Son with progress. CM received updates from SNF referrals: [facility] will consider no bed available [facility] in [place] - waiting list [facility] Waiting list [facility] Declined. [facility] P:Continue with SNF/LTC placement. Transport to be determined.
[2019-06-17] MEDS: Acetaminophen 325 MG TAB PO (16:25)
[2019-06-17] MEDS: Nystatin 500000 UNITS/5 ML SUSP 5ML CUP PO (19:45)
--- NOTE | 2019-06-17 20:16 | NUR.NOTE ---
Nursing Note: Around 1999, this ALLIGATOR SHEAR OPERATOR discussed the d/c order for her arndt catheter and asked why she was refusing. Patient states I don't want to have to get up and go to the bathroom. Patient was informed that it is more likely to have reoccurring UTI's with a catheter in place. Patient states I don't care, I do not want anymore treatment.
[2019-06-17] MEDS: clonazePAM 1 MG TAB 2 MG PO (21:25)
[2019-06-17] MEDS: Zolpidem 5 MG TAB PO (21:26)
[2019-06-17 21:35] VITALS: BP 106/66; PULSE 96
[2019-06-18 06:53] VITALS: BP 98/62; PULSE 86
[2019-06-18] MEDS: Nystatin POWDER 60 GM JAR TP ×2 (07:50→19:58)
[2019-06-18] MEDS: Triamcinolone 0.1% CR 15 GM TUBE TP ×2 (07:50→20:00)
--- NOTE | 2019-06-18 09:01 | NUR.NOTE ---
Nursing Note: This patient refused to make eye contact with this RN when this RN entered the patient's room. The patient would also not speak to this RN. The patient gave a slight nod of no to this RN when asked if she was ready to take her meds. No further interaction at this time
[2019-06-18] MEDS: Budesonide/Formoterol 160/4.5 6 GM 60 PUFF INH IH ×2 (09:27→19:58)
[2019-06-18 09:28] VITALS: RESP 14
[2019-06-18 10:00] VITALS: BP 109/50; PULSE 92; RESP 20; TEMP 36.6; O2SAT 92
--- NOTE | 2019-06-18 10:18 | NUR.NOTE ---
Addendum entered by Barbara Finley 06/18/19 11:38: addendum: This patient continues to refuse to interact with this RN except to kick this RN out of her room. In an attempt to get this patient to take her medications this RN is giving this patient to a different nurse. Original Note: Nursing Note: This patient rang her call keith and asked for her metoprolol dose now. This RN explained to her that she refused her 0600 dose and her next dose is due at 1400. The patient began yelling at this RN stating she wanted her Metoprolol now and this RN was to go get it. When this RN would not get her dose now because she did not have a dose due now she stated that she needed her Metoprolol now and if this RN was not going to get it for her to get out of her room and stay out. Patient is at this time refusing care from anyone except LIBRADO Boothe. She ripped her IID out and threw it across the room. When this RN entered the room to assess the site and cover it with a bandage the patient yelled at this RN and the accompanying LIBRADO that she did not want either of us and to get out.
[2019-06-18] MEDS: Lactobacillus Acidophilus CAP 1 CAP PO ×2 (13:30→19:54)
[2019-06-18] MEDS: Loperamide 2 MG CAP PO (13:30)
[2019-06-18] MEDS: Metoprolol 25 MG TAB PO ×2 (13:30→21:19)
--- NOTE | 2019-06-18 13:47 | PDOC.CMPRO ---
- If Service Date Differs Date of service: 06/18/19 Time of Service: 13:47 Care Management Progress Note Behavioral Health Plan S/O: CM met with Prema to review the behavioral plan she agrees she is getting ready to go out on pass this afternoon she states she is her own person and makes her own decisions. Prema took her medications before she left and was appropriate she states she is going to visit her friends in town and will return by RCT. She plans to be gone for two hours. Behavioral plan will be established with patient, and care team, to adhere to patient goals, identify restrictions based on behavioral status, address nutrition, and determine allowed personal belongings, tools for hygiene and personal care. As well plan will determine level of activity including ambulation, level of supervision, visitors, and determine privileges based on level of acuity, behaviors and level of engagement by patient. Prema agrees to the plan she also wants to add that she is able to leave and go out on pass when she chooses. She states she makes her own decisions and one of those decisions it to be able to go out on pass as described in the Swing Bed contract. Prema agreed with the plan by her verbal consent. 1. Accept care from assign staff including nurse or SUPERVISOR MICROBIOLOGY TECHNOLOGISTS 2. Prema will bathe at least daily by bed bath or shower 3. Prema will be provided with a schedule and time for medications 4. Prema will take her medications at the time ordered 5. Prema will not have Male providers unless there is no other options. 6. Prema will need to be up to the chair at least daily 7. Prema will not be verbally or physically abusive to staff 8. Prema will be able to participate in activities including, Bingo when available, reiki, music therapy and any other activity she would like to participate pending availability. 9. Automobile Mechanic Supervisor will meet with Prema at minimum three times a week to review goals, and provide updates. 10. Goals of care are to transition to appropriate level of care at a LTC facility or AFC home, Prema agrees to referrals on her behalf.
[2019-06-18] MEDS: Acetaminophen 325 MG TAB PO (18:20)
[2019-06-18] MEDS: Nystatin 500000 UNITS/5 ML SUSP 5ML CUP PO (19:51)
[2019-06-18] MEDS: Glucosamine 500 MG CAP PO (19:54)
[2019-06-18] MEDS: Ascorbic Acid 500 MG TAB PO (19:55)
[2019-06-18] MEDS: clonazePAM 1 MG TAB 2 MG PO (21:19)
[2019-06-18] MEDS: oxyCODONE 5 mg/Acetaminophen 325 mg TAB 1 TAB PO (21:20)
[2019-06-18] MEDS: Zolpidem 5 MG TAB PO (21:21)
[2019-06-18 21:32] VITALS: BP 100/57; PULSE 103; RESP 18; TEMP 36.6; O2SAT 97
[2019-06-18] MEDS: Normal Saline Flush 10 ML SYR IVP (21:47)
[2019-06-18] MEDS: CEFEPIME 1 GM in Normal Saline 50 ML IVPB (22:25)
[2019-06-19] MEDS: Acetaminophen 325 MG TAB PO ×3 (01:38→16:57)
[2019-06-19] MEDS: Mylanta Suspension 30 ML CUP PO ×2 (02:51→14:08)
[2019-06-19] MEDS: oxyCODONE 5 mg/Acetaminophen 325 mg TAB 1 TAB PO ×3 (03:00→22:08)
[2019-06-19] MEDS: Metoprolol 25 MG TAB PO ×3 (06:31→21:34)
[2019-06-19] MEDS: Cyanocobalamin 100 MCG TABLET PO (09:26)
[2019-06-19] MEDS: Ascorbic Acid 500 MG TAB PO ×2 (09:26→21:34)
[2019-06-19] MEDS: Ferrous Sulfate 325 MG TAB PO (09:26)
[2019-06-19] MEDS: Anastrozole 1 MG TAB PO (09:26)
[2019-06-19] MEDS: Glucosamine 500 MG CAP PO ×2 (09:26→21:34)
[2019-06-19] MEDS: Lactobacillus Acidophilus CAP 1 CAP PO ×3 (09:26→21:34)
[2019-06-19] MEDS: Nystatin 500000 UNITS/5 ML SUSP 5ML CUP PO ×2 (09:26→21:34)
[2019-06-19 09:27] VITALS: BP 92/53; PULSE 89; RESP 20; TEMP 36.4; O2SAT 99
[2019-06-19] MEDS: Folic Acid 1 MG TAB 2 MG PO (09:27)
[2019-06-19] MEDS: Pantoprazole 40 MG TABCR PO (09:27)
[2019-06-19] MEDS: Nystatin POWDER 60 GM JAR TP ×3 (09:28→21:36)
[2019-06-19] MEDS: Budesonide/Formoterol 160/4.5 6 GM 60 PUFF INH IH ×2 (09:28→21:35)
[2019-06-19] MEDS: Triamcinolone 0.1% CR 15 GM TUBE TP ×2 (09:28→22:15)
--- NOTE | 2019-06-19 10:34 | NUR.NOTE ---
Addendum entered by Briana Cancino 06/19/19 19:28: Patient up to bedside commode once this day around 1530. Patient required close to two hours for the transfer. Patient complaining of abdominal pain since beginning the bed bath around 1350. Patient was prompted to use the commode, patient requested to get cleaned up first since she was incontinent on the bed. Patient was sitting in urine *per her request* during the hygiene/sponge bath for approximately 55 minutes. After the sponge bath, patient requested to place CPAP on and take 10 minutes to allow her abdominal pain to subside. Patient transferred independently with no assistance from staff to bedside commode. Patient voided 600 mL of urine. Patient transferred independently back to bed with assistance from EXTRACORPOREAL TECHNICIAN. Patient only up to bedside commode once during 7am-7pm shift. Original Note: Nursing Note: Discussed establishing a toileting schedule with patient. Patient appears agreeable to get to commode this day (06/19/19) after breakfast. Will discuss frequency of transfers with patient at time she reports is ready for hygiene care.
[2019-06-19 14:15] VITALS: BP 98/60; PULSE 71
--- NOTE | 2019-06-19 15:08 | NUR.NOTE ---
1435: Nursing Note: Pt had called for the nurse to inform her that she had wet the bed. However, she has declined to be changed by 2 different nurses who answered her call. Earlier she had complained that her buttocks crack was getting sore so I reminded her that sitting in a wet bed will make it worse. She stated that turning side to side has hurt her stomach and that she needed to wait for it to settle down before she gets cleaned up. Pt wanting to rest with her cpap machine on for now.
[2019-06-19 19:22] VITALS: BP 96/62; PULSE 89; RESP 19; TEMP 37.4; O2SAT 96
[2019-06-19 19:30] VITALS: RESP 14; O2SAT 96
[2019-06-19] MEDS: clonazePAM 1 MG TAB 2 MG PO (21:34)
[2019-06-19] MEDS: Zolpidem 5 MG TAB PO (21:34)
[2019-06-19 21:58] VITALS: TEMP 38
--- NOTE | 2019-06-19 21:59 | NUR.NOTE ---
2000 patient requested paper to sign to let her go outside I just want to go out for fresh air This nurse offered pt release of responsibility, the patient stated for me to give her the one that she signed yesterday, when explained to pt that she needed to sign a new one. She started yelling at me that she I cant sign any paper that i dont know what they say. at that time i tried to show her that the paper was the same as she signed yesterday, she continued to say that she could not sign any papers no matter if they looked the same. she was not going to be yelled at by Ana then i tried to explain if she did not sign i could not let her go out. I then called the nursing asbestos textile supervisor (Opal) to come to the floor to try and help resolve the issue.
[2019-06-19 23:35] VITALS: TEMP 37.2
--- NOTE | 2019-06-20 00:15 | NUR.NOTE ---
2100--Requested by CC to speak with patient regarding her desire to go outside. Pt signed release of responsibility for ANAHY to go outside yesterday. Today states she doesn't want to get yelled at by Emery for signing same form since he is her DPOAH. Explained to pt that DPOAH is inactive until/unless she becomes incapacitated. States she is unable to read and therefore needs someone to read the form to her. Offered to read the form to her--she stated it must be Ana or Cassidy listed on her HIPPA form to read the form to patient. Offered to call either--pt preferred Ana to be called. Pt spoke with Ana, who declined to come in and pt ended phone call abruptly. Offered to call Emery--pt initially agreed, but then left before phone call could be completed.
[2019-06-20] MEDS: Acetaminophen 325 MG TAB PO ×2 (01:10→21:33)
[2019-06-20] MEDS: Metoprolol 25 MG TAB PO ×3 (06:35→21:24)
[2019-06-20 06:39] VITALS: BP 98/64; PULSE 89; TEMP 36.8
[2019-06-20 08:10] VITALS: BP 98/68; PULSE 85; RESP 20; TEMP 36.8; O2SAT 96
[2019-06-20] MEDS: Budesonide/Formoterol 160/4.5 6 GM 60 PUFF INH IH ×2 (09:57→20:10)
[2019-06-20] MEDS: Pantoprazole 40 MG TABCR PO (10:01)
[2019-06-20] MEDS: Anastrozole 1 MG TAB PO (10:01)
[2019-06-20] MEDS: Nystatin 500000 UNITS/5 ML SUSP 5ML CUP PO ×3 (10:01→20:09)
[2019-06-20] MEDS: Lactobacillus Acidophilus CAP 1 CAP PO ×3 (10:01→20:09)
[2019-06-20] MEDS: Ascorbic Acid 500 MG TAB PO ×2 (10:01→20:09)
[2019-06-20] MEDS: Glucosamine 500 MG CAP PO ×2 (10:01→20:09)
[2019-06-20] MEDS: Folic Acid 1 MG TAB 2 MG PO (10:01)
[2019-06-20] MEDS: Cyanocobalamin 100 MCG TABLET PO (10:01)
[2019-06-20] MEDS: Nystatin POWDER 60 GM JAR TP ×3 (10:02→20:10)
[2019-06-20] MEDS: Triamcinolone 0.1% CR 15 GM TUBE TP ×2 (10:02→20:10)
[2019-06-20] MEDS: Ferrous Sulfate 325 MG TAB PO (10:02)
[2019-06-20] MEDS: oxyCODONE 5 mg/Acetaminophen 325 mg TAB 1 TAB PO ×2 (12:45→16:49)
[2019-06-20] MEDS: Docusate Sodium 100 MG CAP PO (14:16)
--- NOTE | 2019-06-20 16:31 | W.PM.PROGNOT ---
Date of Service Date of service: 06/20/19 Time of Service: 16:31 Assessment and Plan (1) Cholecystostomy tube dysfunction: Current visit: Yes Status: Acute I spoke with [facility] [place] We are faxing information to [facility] [place] for an interrogation of the drain - expected to happen early next week. The patient verbalizes that she does not want to stay at [facility] and she would like Ana (her friend) to be there. We have contacted Ana - she cannot accompany Prema on Friday or Friday. Prema agrees to go to [facility] for this procedure, but not any other. Will check labs in am. (2) UTI (urinary tract infection): Current visit: Yes Status: Resolved Abx d/c'ed. Subjective Interval history since last seen: Prema has been reporting pain in her R-side for the last 24 hours. The pain started, per her, after being turned and was initially reported to be in the hip area. Today, the pain migrates from LUQ to RUQ. It is mostly located underneath where the cholecystostomy drain is. The drain has had no output today and has had decreased output in the last 2 days. When the drain was attempted to be flushed, there was no resistance, but the patient started to cry in pain. VSS reviewed. I was specifically warned by nursing that the temp of 38.0 yesterday was recorded immediately after the patient had had warm fluids by mouth and it was normal on recheck. Since then, the patient has been afebrile. Exam Narrative Exam Narrative: General: obese female, tearful, not answering all of my questions (she is awake and able to answer them; answers other questions) HEENT: EOMI, MMM Heart: RRR, no m/r/g Lungs: CTAB GI: abdomen is soft, I do not perceive it to be distended, but it is rotund/obese, moderately tender in the RUQ below the drain Extremities: BLE lymphedema, no c/c Objective Objective Clinical Data: Vital Signs Temperature 36.8 C 06/20/19 08:10 Temperature Source Tympanic 06/20/19 08:10 Pulse 85 06/20/19 08:10 Pulse Rhythm Regular 06/20/19 09:40 Respiratory Rate 20 06/20/19 08:10 Respiratory Effort 06/20/19 09:40 Respiratory Depth Shallow 08/25/19 09:40 Respiratory Pattern Normal 06/20/19 09:40 Blood Pressure 98/68 L 06/20/19 08:10 Pulse Oximetry 96 06/20/19 08:10 Oxygen Delivery Method Room Air 06/20/19 08:10 Oxygen Flow Rate 0 06/20/19 08:10 Fraction of Inspired Oxygen (FIO2) 21 06/19/19 19:30 Pain Level 7 06/20/19 16:00 Comment 06/19/19 23:35 Intake & Output 06/19/19 06/20/19 06/20/19 23:59 11:59 23:59 Intake Total 1205 / 1210 5 / 1210 Output Total 301 / 331 Balance -301 / 754 1205 / 1210 5 / 1210 Intake: Oral 1200 / 1200 Injectate 5 5 / 10 Right Abdomen 5 10 5 10 Output: Drainage 50 / 60 Right Abdomen 50 / 60 Urine 250 / 250 Stool Other: Urine Color Yellow Yellow Urine Appearance Clear Urine Odor Normal Comment pt rang, told me she was wet. She refuses to get up to commode or wheelchair so that she can get cleaned and changed, and make her bed with fresh linens. pt was inconintent Stool Size Copious Stool Characteristics Soft Formed Brown Voiding Methods Bedpan Diaper Incontinent Laboratory Results WBC 5.88 k/cumm (4.4-10.8) 06/09/19 07:00 RBC 3.76 m/cumm (4.00-5.20) L 06/09/19 07:00 Hgb 12.6 g/dL (12.0-15.5) 06/09/19 07:00 Hct 39.4 % (36.0-46.0) 06/09/19 07:00 MCV 104.8 fL (80-95) H 06/09/19 07:00 MCH 33.5 pg (27.0-33.0) H 06/09/19 07:00 MCHC 32.0 g/dL (32.0-36.0) 06/09/19 07:00 RDW 14.0 % (11.7-14.6) 06/09/19 07:00 Plt Count 138 x1000/uL (130-400) 06/09/19 07:00 MPV 10.8 fL (8.0-11.0) 06/09/19 07:00 Yellow (Yellow) 06/07/19 12:15 Cloudy (Clear) 06/07/19 12:15 5.5 (5-8) 06/07/19 12:15 Ur Specific [place] 1.015 (1.005-1.025) 06/07/19 12:15 Trace mg/dL (Negative) H 06/07/19 12:15 Negative mg/dL (Negative) 06/07/19 12:15 Small (Negative) H 06/07/19 12:15 Positive (Negative) H 06/07/19 12:15 Negative (Negative) 06/07/19 12:15 0.2 EU/dL (Up TO 0.2) 06/07/19 12:15 Ur Leukocyte Esterase Large (Negative) H 06/07/19 12:15 Not Applicable 06/07/19 12:15 >50 HPF (0-5) 06/07/19 12:15 Ur Epithelial Cells Not Applicable 06/07/19 12:15 Not Applicable 06/07/19 12:15 Not Applicable 06/07/19 12:15 Not Applicable 06/07/19 12:15 Ur Culture Indicated? C&s done as ordered 06/07/19 12:15 Negative mg/dL (Negative) 06/07/19 12:15
--- NOTE | 2019-06-20 18:12 | NUR.NOTE ---
Patient has been verbally abusive to staff today. Nursing approached patient this morning to do assessment and patient was very demanding of staff, asking staff to perform one task and then adding another and yelling at staff when things did not get done when she wanted them. Staff calmly asked the patient to stop yelling and use please and thank you. The patient continued to yell at staff and staff left the room. Later staff approached the patient and the patient complained to staff, calling an RT an idiot and complaining about staff care. The patient then complained about pain that was exacerbated by eating, but was eating at the time. Nursing explained that if the pain was worse with eating the patient should stop for the time being until the doctor could be notified, and the patient refused and continued to eat. Later in the day at approximately 13:00 the patient was given pain medication for 5/10 abdominal pain that the patient once again said was worse with food but was eating at the time of pain assessment and continued to eat after medication was given. The physician was notified. Nursing Note:
[2019-06-20] MEDS: Zolpidem 5 MG TAB PO (21:24)
[2019-06-20] MEDS: clonazePAM 1 MG TAB 2 MG PO (21:24)
[2019-06-20 21:26] VITALS: BP 109/69; PULSE 89; RESP 20; TEMP 37.6; O2SAT 99
[2019-06-21] MEDS: Metoprolol 25 MG TAB PO ×3 (06:15→19:38)
[2019-06-21 06:20] VITALS: BP 93/64; PULSE 97; RESP 19; TEMP 35.8; O2SAT 99
[2019-06-21] MEDS: oxyCODONE 5 mg/Acetaminophen 325 mg TAB 1 TAB PO ×4 (06:51→22:29)
[2019-06-21 07:00] LABS: Absolute Basophil Count 0.03 k/cumm (0.0-0.2); Absolute Eosinophil Count 0.21 k/cumm (0.0-0.7); Absolute Lymphocyte Count 0.72 k/cumm (1.2-3.4); Absolute Monocyte Count 0.47 k/cumm (0.11-0.7); Basophils % 0.5; Eosinophils % 3.3; HCT 36.6 % (36.0-46.0); HGB 11.4 g/dL (12.0-15.5); Lymphocytes % 11.2; Mean Corp. HGB Concentration 31.1 g/dL (32.0-36.0); Mean Corpuscular Hemoglobin 33.8 pg (27.0-33.0); Mean Corpuscular Volume 108.6 fL (80-95); Mean Platelet Volume 10.2 fL (8.0-11.0); Monocytes % 7.3; Neutrophils % 77.7; Platelet Count 154 x1000/uL (130-400); RBC 3.37 m/cumm (4.00-5.20); RBC Distribution Width 14.7 % (11.7-14.6); White Blood Cell Count 6.43 k/cumm (4.4-10.8)
[2019-06-21 07:08] LABS: Anion Gap 4.2 mmol/L (3-11); BUN 11 mg/dL (7-18); CO2 32.8 mmol/L (21.0-32.0); Calcium 8.9 mg/dL (8.5-10.1); Chloride 104 mmol/L (98-107); Glucose 95 mg/dL (70-100); Magnesium 1.9 mg/dL (1.8-2.4); Potassium 4.4 mmol/L (3.5-5.1); Sodium 141 mmol/L (136-145)
--- NOTE | 2019-06-21 07:55 | NUR.NOTE ---
Nursing Note: 0645: pt has c/o increased pain in right side. pt's right side distended in comparison to when this RN assessed abdomen last week. dressing removed from T tube insertion site; sutures noted to no longer be implanted in pt's skin and are approximately 4 inches down the T tubing. reported to and to CC. T tube site painful to touch. Tubing secured with tape to pt's abdomen so tubing can not slip out any further. continue to monitor.
[2019-06-21] MEDS: Glucosamine 500 MG CAP PO ×2 (08:08→19:35)
[2019-06-21] MEDS: Anastrozole 1 MG TAB PO (08:08)
[2019-06-21] MEDS: Ferrous Sulfate 325 MG TAB PO (08:08)
[2019-06-21] MEDS: Cyanocobalamin 100 MCG TABLET PO (08:08)
[2019-06-21] MEDS: Folic Acid 1 MG TAB 2 MG PO (08:08)
[2019-06-21] MEDS: Ascorbic Acid 500 MG TAB PO ×2 (08:09→19:35)
[2019-06-21] MEDS: Pantoprazole 40 MG TABCR PO (08:09)
[2019-06-21] MEDS: Nystatin POWDER 60 GM JAR TP ×3 (08:09→19:39)
[2019-06-21] MEDS: Triamcinolone 0.1% CR 15 GM TUBE TP ×2 (08:09→19:38)
[2019-06-21] MEDS: Nystatin 500000 UNITS/5 ML SUSP 5ML CUP PO ×3 (08:09→19:34)
[2019-06-21] MEDS: Lactobacillus Acidophilus CAP 1 CAP PO ×3 (08:09→19:34)
[2019-06-21 09:07] LABS: ALT 32 U/L (14-59); AST 21 U/L (15-37); Albumin 2.3 g/dL (3.4-5.0); Alkaline Phosphatase 118 U/L (46-116); Bilirubin, Direct 0.22 mg/dL (0.00-0.20); Bilirubin, Total 0.6 mg/dL (0.2-1.0); Total Protein 6.6 g/dL (6.4-8.2)
--- NOTE | 2019-06-21 09:23 | NUR.NOTE ---
Nursing Note: 0920: Ana Marc NP from IR at [facility] called to discuss pt's T tube. reported information regarding drainage, VS, pain, and lab results to SUPERVISOR ORE DRESSING per her request. SUPERVISOR ORE DRESSING states that they will not be able to see pt today but will be working her into the schedule in the next few days. IR will call to arrange appointment with [facility].
--- NOTE | 2019-06-21 09:53 | NUR.NOTE ---
Nursing Note: 0950: Nora from [facility] called to confirm appointment time for Friday, June 23 with arrival time at 0830 to 3Z. reported to BLANCHE Dailey RN
[2019-06-21] MEDS: Budesonide/Formoterol 160/4.5 6 GM 60 PUFF INH IH ×2 (10:17→19:48)
[2019-06-21] MEDS: Ergocalciferol 50000 UNITS CAP PO (10:17)
--- NOTE | 2019-06-21 14:35 | W.PM.PROGNOT ---
Date of Service Date of service: 06/21/19 Time of Service: 14:35 Subjective Interval history since last seen: Prema has an appointment at [facility] on Friday for interrogation/exchange of the cholecystostomy drain. She states she is willing to wait until then. Her pain is controlled on oral pain medications. She has been afebrile. Her labs do not indicate infection. Her exam is unchanged from yesterday. I feel that it is likely ok to wait until Friday. Objective Objective Clinical Data: Abnormal lab results 06/21/19 06/21/19 Range/Units 06:37 06:37 RBC 3.37 L (4.00-5.20) m/cumm Hgb 11.4 L (12.0-15.5) g/dL MCV 108.6 H (80-95) fL MCH 33.8 H (27.0-33.0) pg MCHC 31.1 L (32.0-36.0) g/dL RDW 14.7 H (11.7-14.6) % Absolute Lymphocytes 0.72 L (1.2-3.4) k/cumm Carbon Dioxide 32.8 H (21.0-32.0) mmol/L Creatinine 0.50 L (0.55-1.02) mg/dL Conjugated Bilirubin 0.22 H (0.00-0.20) mg/dL Alkaline Phosphatase 118 H (46-116) U/L Albumin 2.3 L (3.4-5.0) g/dL Vital Signs Temperature 35.8 C L 06/21/19 06:20 Temperature Source Tympanic 06/21/19 06:20 Pulse 97 H 06/21/19 06:20 Pulse Rhythm Regular 06/21/19 08:35 Respiratory Rate 06/21/19 06:20 Respiratory Effort Non-Labored 06/21/19 08:35 Respiratory Depth Normal 06/21/19 08:35 Respiratory Pattern Normal 06/21/19 08:35 Blood Pressure 93/64 L 06/21/19 06:20 Pulse Oximetry 99 06/21/19 06:20 Oxygen Delivery Method Cpap 06/21/19 06:20 Oxygen Flow Rate 2 06/20/19 21:26 Fraction of Inspired Oxygen (FIO2) 21 06/19/19 19:30 Pain Level 9 06/21/19 14:17 Comment 06/19/19 23:35 Intake & Output 06/20/19 06/21/19 06/21/19 23:59 11:59 23:59 Intake Total 255 / 1460 480 / 480 Balance 255 / 1460 480 / 480 Intake: Oral 250 / 1450 480 / 480 Injectate Right Abdomen Other: Urine Color Yellow Urine Odor Normal Comment pt was incontinent Stool Size Copious Stool Characteristics Formed Voiding Methods Diaper Incontinent Incontinent Laboratory Results WBC 6.43 k/cumm (4.4-10.8) 06/21/19 06:37 RBC 3.37 m/cumm (4.00-5.20) L 06/21/19 06:37 Hgb 11.4 g/dL (12.0-15.5) L 06/21/19 06:37 Hct 36.6 % (36.0-46.0) 06/21/19 06:37 MCV 108.6 fL (80-95) H 06/21/19 06:37 MCH 33.8 pg (27.0-33.0) H 06/21/19 06:37 MCHC 31.1 g/dL (32.0-36.0) L 06/21/19 06:37 RDW 14.7 % (11.7-14.6) H 06/21/19 06:37 Plt Count 154 x1000/uL (130-400) 06/21/19 06:37 MPV 10.2 fL (8.0-11.0) 06/21/19 06:37 Immature Gran % 0.0 06/21/19 06:37 77.7 06/21/19 06:37 11.2 06/21/19 06:37 7.3 06/21/19 06:37 3.3 06/21/19 06:37 0.5 06/21/19 06:37 Absolute Neutrophils 5.00 k/cumm (1.2-6.7) 06/21/19 06:37 Absolute Lymphocytes 0.72 k/cumm (1.2-3.4) L 06/21/19 06:37 Absolute Monocytes 0.47 k/cumm (0.11-0.7) 06/21/19 06:37 Absolute Eosinophils 0.21 k/cumm (0.0-0.7) 06/21/19 06:37 Absolute Basophils 0.03 k/cumm (0.0-0.2) 06/21/19 06:37 Sodium 141 mmol/L (136-145) 06/21/19 06:37 Potassium 4.4 mmol/L (3.5-5.1) 06/21/19 06:37 Chloride 104 mmol/L (98-107) 06/21/19 06:37 Carbon Dioxide 32.8 mmol/L (21.0-32.0) H 06/21/19 06:37 4.2 mmol/L (3-11) 06/21/19 06:37 BUN 11 mg/dL (7-18) 06/21/19 06:37 0.50 mg/dL (0.55-1.02) L 06/21/19 06:37 >= 60.00 (mL/min/1.73m2) 06/21/19 06:37 Glucose 95 mg/dL (70-100) 06/21/19 06:37 Calcium 8.9 mg/dL (8.5-10.1) 06/21/19 06:37 Magnesium 1.9 mg/dL (1.8-2.4) 06/21/19 06:37 0.6 mg/dL (0.2-1.0) 06/21/19 06:37 0.22 mg/dL (0.00-0.20) H 06/21/19 06:37 AST 21 U/L (15-37) 06/21/19 06:37 ALT 32 U/L (14-59) 06/21/19 06:37 118 U/L (46-116) H 06/21/19 06:37 6.6 g/dL (6.4-8.2) 06/21/19 06:37 2.3 g/dL (3.4-5.0) L 06/21/19 06:37 Yellow (Yellow) 06/07/19 12:15 Cloudy (Clear) 06/07/19 12:15 5.5 (5-8) 06/07/19 12:15 Ur Specific [place] 1.015 (1.005-1.025) 06/07/19 12:15 Trace mg/dL (Negative) H 06/07/19 12:15 Negative mg/dL (Negative) 06/07/19 12:15 Small (Negative) H 06/07/19 12:15 Positive (Negative) H 06/07/19 12:15 Negative (Negative) 06/07/19 12:15 0.2 EU/dL (Up TO 0.2) 06/07/19 12:15 Ur Leukocyte Esterase Large (Negative) H 06/07/19 12:15 Not Applicable 06/07/19 12:15 >50 HPF (0-5) 06/07/19 12:15 Ur Epithelial Cells Not Applicable 06/07/19 12:15 Not Applicable 06/07/19 12:15 Not Applicable 06/07/19 12:15 Not Applicable 06/07/19 12:15 Ur Culture Indicated? C&s done as ordered 06/07/19 12:15 Negative mg/dL (Negative) 06/07/19 12:15
[2019-06-21 14:43] VITALS: BP 99/63; PULSE 73
--- NOTE | 2019-06-21 16:22 | CHAPLAIN ---
Prema showed me old photographs of her children and her herself and shared personal history. She said she wasn't feeling well and called for the nurse as I was leaving.
--- NOTE | 2019-06-21 17:09 | NUR.NOTE ---
Nursing Note: Pt called staff about pain med not working that was given almost two hours ago, The typewriter ribbon winder and other RN offered an option of tylenol but refused. when approached by typewriter ribbon winder, she was verbally upset and stated that you are not doing anything for my pain and took her poultry picking machine tender stick and slid towards the table fan that almost fell. broker in charge notified. Continue to answer calls but increasingly agitated. call lights at reach.
--- NOTE | 2019-06-21 17:17 | NUR.NOTE ---
Nursing Note: Pt reported that she was in pain. She had percocet @ 1417 and they changed the prn percocet from Q6 hours to Q4 hours, so she could have it more frequently. I told the patient this. I also told her that she can't have the percocet again until 1816. I offered the pt tylenol, repositioning, ice pack, heating pad, and distraction (her coloring book). Pt refused all other alternatives and was upset. I educated the patient on how this other things could help, but she wasn't interested.
[2019-06-21 19:30] VITALS: BP 96/53; PULSE 84; RESP 20; TEMP 37.6; O2SAT 95
[2019-06-21] MEDS: clonazePAM 1 MG TAB 2 MG PO (19:34)
[2019-06-21] MEDS: Zolpidem 5 MG TAB PO (19:35)
[2019-06-21] MEDS: Normal Saline Flush 10 ML SYR IVP (20:48)
[2019-06-22] MEDS: oxyCODONE 5 mg/Acetaminophen 325 mg TAB 1 TAB PO ×4 (03:17→22:14)
[2019-06-22 05:50] VITALS: BP 82/53; PULSE 42; RESP 20; TEMP 36.8; O2SAT 95
[2019-06-22] MEDS: Anastrozole 1 MG TAB PO (08:18)
[2019-06-22] MEDS: Folic Acid 1 MG TAB 2 MG PO (08:18)
[2019-06-22] MEDS: Glucosamine 500 MG CAP PO ×2 (08:18→20:01)
[2019-06-22] MEDS: Lactobacillus Acidophilus CAP 1 CAP PO ×3 (08:18→20:01)
[2019-06-22] MEDS: Ferrous Sulfate 325 MG TAB PO (08:18)
[2019-06-22] MEDS: Cyanocobalamin 100 MCG TABLET PO (08:18)
[2019-06-22] MEDS: Pantoprazole 40 MG TABCR PO (08:18)
[2019-06-22] MEDS: Ascorbic Acid 500 MG TAB PO ×2 (08:18→20:01)
[2019-06-22] MEDS: Nystatin 500000 UNITS/5 ML SUSP 5ML CUP PO ×3 (08:19→20:03)
[2019-06-22] MEDS: Nystatin POWDER 60 GM JAR TP ×3 (08:19→20:02)
[2019-06-22] MEDS: Acetaminophen 325 MG TAB PO (08:28)
[2019-06-22] MEDS: Budesonide/Formoterol 160/4.5 6 GM 60 PUFF INH IH ×2 (08:29→21:23)
[2019-06-22 08:59] VITALS: RESP 16
[2019-06-22] MEDS: Triamcinolone 0.1% CR 15 GM TUBE TP ×2 (09:15→20:03)
[2019-06-22 09:28] VITALS: BP 100/55; PULSE 96; RESP 20
[2019-06-22 09:45] VITALS: RESP 18
--- NOTE | 2019-06-22 11:09 | CMPROGNOTE_ITS ---
- If Service Date Differs Date of service: 06/22/19 Time of Service: 11:09 Care Management Progress Note S/O: Prema is alert and engaged with CM she has been out to visit her apartment last week and she found enjoyment in being outside. She describes concern about signing any paperwork without her son present. Prema is illiterate and is worried that she should not sign anything without it being read to her and that she is able to understand it. She feels that her son is upset with her because she went out into the community to visit her friends and her apartment. CM has continued to follow up on referrals she remains on three waiting list and no other offers from the entire [facility]. Prema will go to [facility] on Friday leaving here at 0700 via ambulance and will return when the procedure is over. MICHAEL has provided update to Prema's son Emery. A: Prema is a 63 year female admitted to [facility] for ongoing placement issues after an acute stay for pneumonia and IV antibiotics. Prema had a bile drain that was placed and managed by [facility] and is chronic. She was treated for a UTI with IV antibiotics and her SSRI is currently on hold r/t treatment. Prema is in need of LTC placement she has highest needs CFC. She has a community memory care program director Tracey through [facility]. P: MICHAEL has faxed referrals to all non - [facility] facilities in [place]. She has been offered wait list by [facility] [place], [facility] MICHAEL has updated Salma iPtt through [facility] she is assisting with resources for placement.
[2019-06-22] MEDS: Metoprolol 25 MG TAB PO ×2 (12:39→21:23)
[2019-06-22] MEDS: Loperamide 2 MG CAP PO (12:39)
--- NOTE | 2019-06-22 13:08 | NUR.NOTE ---
refused care offered multiple times. noticeably soiled bed with stool and urine. stated that her time is better spent with her visitor and that she did not want staff in her room she has been offered several times before visitor arrived but refused several times. Nursing Note:
[2019-06-22 13:39] VITALS: RESP 16
[2019-06-22] MEDS: clonazePAM 1 MG TAB 2 MG PO (21:23)
[2019-06-22] MEDS: Zolpidem 5 MG TAB PO (21:23)
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
[2019-06-22 22:13] VITALS: BP 90/70; PULSE 93; RESP 18; TEMP 36.8; O2SAT 96
[2019-06-23] MEDS: Acetaminophen 325 MG TAB PO (01:38)
--- NOTE | 2019-06-23 01:46 | NUR.NOTE ---
Addendum entered by Hazel Rivas 06/23/19 03:24: Pt has not eaten the candy but has drank more of the can of mandi john. Pt was reminded again that the procedure may not be done tomorrow if she continues to drink the mandi john. Pt stated that she understood though doesn't think it is a big deal. Original Note: Pt is to be NPO after midnight for a diagnostic imaging study at [facility] today (06/23/19) at 0830. Pt refused to give up can of mandi john stating it is okay for me to just wet my mouth if it gets too dry. This RN explained to the pt that it is indeed not okay to take sips, no matter how small, and that they may decide not to do her procedure based on the fact that she is still drinking fluids. Pt also refused to allow this RN to move her unopened box of whoppers chocolates, snickers bar and three musketeers bar from her bedside table stating I promise not to eat them. This RN stated again that if she does choose to eat the candy or drink more of her mandi john, even if its only a sip, that this necessary procedure may not be done tomorrow. Pt stated she understood.
[2019-06-23] MEDS: oxyCODONE 5 mg/Acetaminophen 325 mg TAB 1 TAB PO ×5 (03:12→21:23)
--- NOTE | 2019-06-23 05:39 | NUR.NOTE ---
Addendum entered by Hazel Rivas 06/23/19 06:42: Pt refusing to go to [facility] until I have an IV. I will not be tortured or put in mortal danger. Demand for IV placement at [facility] was made at approximately 0300 today. An RN from the ED came with an ultrasound to try to place the IV twice, both attempts were unsuccessful. Pt called Lacy Saeid at home to ask her what she should do. Lacy said that someone would be up to try her IV again before she went. As of [address] anesthesia was able to place a 20 G in the right forearm. Pt is being medicated for pain before she leaves via [facility] for [facility]. Original Note: Report given to radiology at [facility]. RN reported: A/O x 3, VSS with chronic hypotension, incontinent bladder, bedpan for bowels, transfer from motorized wheelchair into bed with standby assist. Reported that we do not currently have IV access though we are still trying. [facility] asked we hold the Metoprolol and said that if we are unable to get IV access before she leaves than they will obtain access. The plan for transport is to have [facility] pick pt up from [facility] at 0700, bring to [facility], then return to [facility] after the procedure.
[2019-06-23 09:21] VITALS: RESP 14
[2019-06-23 15:00] VITALS: BP 99/64; PULSE 82
[2019-06-23] MEDS: Lactobacillus Acidophilus CAP 1 CAP PO ×2 (15:03→20:51)
[2019-06-23] MEDS: Metoprolol 25 MG TAB PO ×2 (15:03→20:57)
[2019-06-23] MEDS: Nystatin POWDER 60 GM JAR TP ×2 (15:04→20:53)
[2019-06-23] MEDS: Nystatin 500000 UNITS/5 ML SUSP 5ML CUP PO ×2 (15:09→20:53)
[2019-06-23] MEDS: Zolpidem 5 MG TAB PO (20:51)
[2019-06-23] MEDS: Budesonide/Formoterol 160/4.5 6 GM 60 PUFF INH IH (20:51)
[2019-06-23] MEDS: Glucosamine 500 MG CAP PO (20:52)
[2019-06-23] MEDS: Ascorbic Acid 500 MG TAB PO (20:52)
[2019-06-23] MEDS: clonazePAM 1 MG TAB 2 MG PO (20:52)
[2019-06-23] MEDS: Triamcinolone 0.1% CR 15 GM TUBE TP (20:53)
[2019-06-23 21:01] VITALS: BP 93/50; PULSE 83; RESP 20; TEMP 35.8; O2SAT 99
[2019-06-23 23:05] VITALS: O2SAT 99
[2019-06-24 06:00] VITALS: BP 82/48; PULSE 97; RESP 18; TEMP 36.8; O2SAT 97
[2019-06-24] MEDS: oxyCODONE 5 mg/Acetaminophen 325 mg TAB 1 TAB PO ×3 (06:02→22:04)
--- NOTE | 2019-06-24 07:07 | NUR.NOTE ---
Patient complaint of pain and requested Percocet, now complaining that she is having itching due to the medications she got yesterday from [facility] interacting with her medications that she is currently taking here.
[2019-06-24 07:50] VITALS: BP 96/68; PULSE 97; RESP 18; TEMP 36.3; O2SAT 97
[2019-06-24 08:10] VITALS: RESP 14
[2019-06-24] MEDS: Budesonide/Formoterol 160/4.5 6 GM 60 PUFF INH IH ×2 (08:35→19:36)
[2019-06-24] MEDS: Normal Saline Flush 10 ML SYR IVP (08:51)
[2019-06-24] MEDS: Nystatin 500000 UNITS/5 ML SUSP 5ML CUP PO ×3 (08:52→19:36)
[2019-06-24] MEDS: Folic Acid 1 MG TAB 2 MG PO (08:52)
[2019-06-24] MEDS: Pantoprazole 40 MG TABCR PO (08:52)
[2019-06-24] MEDS: Ascorbic Acid 500 MG TAB PO ×2 (08:52→19:36)
[2019-06-24] MEDS: Lactobacillus Acidophilus CAP 1 CAP PO ×3 (08:52→19:36)
[2019-06-24] MEDS: Anastrozole 1 MG TAB PO (08:52)
[2019-06-24] MEDS: Glucosamine 500 MG CAP PO ×2 (08:52→19:35)
[2019-06-24] MEDS: Ferrous Sulfate 325 MG TAB PO (08:52)
[2019-06-24] MEDS: Cyanocobalamin 100 MCG TABLET PO (08:52)
[2019-06-24] MEDS: Nystatin POWDER 60 GM JAR TP ×2 (08:53→19:36)
--- NOTE | 2019-06-24 13:26 | NUR.NOTE ---
Nursing Note:pT refused to be checked and change as well as refusing AM multiple times.
[2019-06-24] MEDS: Metoprolol 25 MG TAB PO ×2 (13:27→22:05)
--- NOTE | 2019-06-24 14:48 | CHAPLAIN ---
Prema talked about her trip to [facility] yesterday and was not pleased with parts of it and explained why. She shared some personal history and talked about her concern for never being able to live in her apartment again, and not having control over where she moves to next. I told her I would let her Remote Operations Producer, Ivelisse Arriaga know about her concerns.
--- NOTE | 2019-06-24 15:34 | NUR.NOTE ---
Patient complained at approximately 08:47 this morning of pain. Nursing offered the patient alternative therapies as she was not due for pain medication. Patient stated to nursing that she did not want medication and wanted a hot pack. Nursing alerted nursing clinical care wet end supervisor and an Aqua K pack hot pack was ordered. At approximately 09:25 nursing set up and applied the hot pack. Approximately 10 minutes later nursing answered the call keith and the patient stated the hot pack wasn't working and staff found the hot pack disconnected from the heating/pump unit. Nursing asked the patient if she had disconnected the pack and she denied it. Approximately 15 minutes after this encounter nursing was called in again and the patient stated that the hot pack wasn't working and she never wanted it anyways and asked for hot blankets instead. Nursing retrieved two hot blankets and applied them to the patient, who then stated these aren't even hot anyway, forget about it and threw them at nursing. Nursing asked the patient to stop yelling and throwing things and the patient continued to be verbally abusive to staff, so staff left the room. Nursing re-approached the patient around 11:00 and the patient was resting. Nursing was alerted by [facility] staff a few hours later that the patient had refused to get washed up and was re-approached several times and continued to refuse. [facility] staff also shared with nursing that the patient appeared to have been incontinent of urine and was refusing to let staff change her brief. Nursing approached the patient to offer pain control and speak to the patient about her choices. The patient was not interested in being educated about skin breakdown related to incontinence, and stated I don't want anyone, and I mean anyone, in my room unless I say so. Nursing asked the patient if she wanted to be changed and the patient declined, and nursing left the room. Nursing alerted nursing clinical medical care evaluation specialist and case management staff. At this time (15:44) the patient is visiting with her son in her room. Nursing Note:
[2019-06-24] MEDS: Triamcinolone 0.1% CR 15 GM TUBE TP (19:36)
[2019-06-24] MEDS: Zolpidem 5 MG TAB PO (22:05)
[2019-06-24] MEDS: clonazePAM 1 MG TAB 2 MG PO (22:05)
[2019-06-24 22:08] VITALS: BP 97/61; PULSE 70; RESP 18; TEMP 36.2; O2SAT 100
[2019-06-24 22:09] VITALS: O2SAT 100
[2019-06-25 05:50] VITALS: BP 88/62; PULSE 85; RESP 19; TEMP 36.2; O2SAT 96
[2019-06-25] MEDS: oxyCODONE 5 mg/Acetaminophen 325 mg TAB 1 TAB PO ×2 (05:51→20:08)
[2019-06-25] MEDS: Metoprolol 25 MG TAB PO ×2 (05:52→20:09)
--- NOTE | 2019-06-25 07:09 | NUR.NOTE ---
Agnieszka was put on the bedpan around 530am, STAIN SPRAYER Charla has checked in multiple times asking her to get off the bedpan and pt has refused.
--- NOTE | 2019-06-25 07:28 | NUR.NOTE ---
Patient IV was flushed and same noted to be leaking and bruised but patient refused for nursing to remove IV.
[2019-06-25] MEDS: Lactobacillus Acidophilus CAP 1 CAP PO ×2 (09:32→20:09)
[2019-06-25] MEDS: Cyanocobalamin 100 MCG TABLET PO (09:32)
[2019-06-25] MEDS: Nystatin 500000 UNITS/5 ML SUSP 5ML CUP PO ×2 (09:32→20:15)
[2019-06-25] MEDS: Anastrozole 1 MG TAB PO (09:32)
[2019-06-25] MEDS: Folic Acid 1 MG TAB 2 MG PO (09:32)
[2019-06-25] MEDS: Glucosamine 500 MG CAP PO ×2 (09:32→20:09)
[2019-06-25] MEDS: Ergocalciferol 50000 UNITS CAP PO (09:32)
[2019-06-25] MEDS: Pantoprazole 40 MG TABCR PO (09:32)
[2019-06-25] MEDS: Ferrous Sulfate 325 MG TAB PO (09:33)
[2019-06-25] MEDS: Ascorbic Acid 500 MG TAB PO ×2 (09:33→20:09)
--- NOTE | 2019-06-25 13:41 | NUR.NOTE ---
Nursing Note:pT refused AM care 6 times. pT also refused to be checked and changed 6 times.
--- NOTE | 2019-06-25 16:11 | NUR.NOTE ---
Patient allowed nursing to perform morning assessment, and took her AM medications. Staff praised patient for being cooperative, and allowed patient to eat breakfast before caring for T-tube drain. Patient began stating that someone had moved all my things and taken a roll of medical tape that was on her table. Nursing told the patient she would help her look for the tape, found the tape, and gave it to the patient. Nursing vocalized to patient that she was not aware of anyone moving her stuff. At approximately 11:00 AM nursing re-approached patient for drain care and flushing, patient became aggressive with staff, stating you're not doing it right and you don't know what you're doing. Staff insisted they were following procedure and had managed the drain the previous day with no problems, patient continued to be argumentative. Nursing offered the patient AM care so her morning creams/powders could be applied and patient declined. Nursing then left the room as the patient stopped speaking when nursing was engaging. At approximately 14:30 nursing re-approached the patient to offer afternoon medications, toileting, and hygiene care. The patient at first would not speak to nursing, then told nursing that she has rules she needs to follow, and so do you nursing stated to the patient she was taking her non-verbal response as her refusing her medications, and the patient stated I'm not saying no and then nursing asked the patient if she would take the medication, and the patient stated For what purpose? and started shouting at nursing. Nursing asked the patient to stop shouting and the patient refused and stated she wanted to talk to case management. At this time an TURF KEEPER approached nursing and the TURF KEEPER reported that the patient refused her lunch and stated unless whoever cooked it brings it into my room, I'm not eating it. Case management was made aware of the patient's behavior. At approximately 15:30 nursing checked in on patient, who was refusing to speak to nursing. At that time patient was asked if it was ok to physically re-assess the patient and the patient continued to not speak to staff, who took this as refusal. Nursing Note:
[2019-06-25 16:18] VITALS: RESP 14
[2019-06-25] MEDS: Budesonide/Formoterol 160/4.5 6 GM 60 PUFF INH IH (20:08)
[2019-06-25] MEDS: Cyclobenzaprine 10 MG TAB PO (20:09)
[2019-06-25] MEDS: clonazePAM 1 MG TAB 2 MG PO (20:09)
[2019-06-25] MEDS: Zolpidem 5 MG TAB PO (20:10)
[2019-06-25] MEDS: Nystatin POWDER 60 GM JAR TP (20:15)
[2019-06-25] MEDS: Triamcinolone 0.1% CR 15 GM TUBE TP (20:16)
[2019-06-26] MEDS: oxyCODONE 5 mg/Acetaminophen 325 mg TAB 1 TAB PO ×4 (04:34→20:05)
[2019-06-26] MEDS: Metoprolol 25 MG TAB PO ×3 (04:58→20:22)
[2019-06-26] MEDS: Acetaminophen 325 MG TAB PO (04:58)
[2019-06-26] MEDS: Glucosamine 500 MG CAP PO ×2 (09:57→20:04)
[2019-06-26] MEDS: Nystatin 500000 UNITS/5 ML SUSP 5ML CUP PO (09:57)
[2019-06-26] MEDS: Sertraline 50 MG TAB PO (09:57)
[2019-06-26] MEDS: Cyclobenzaprine 10 MG TAB PO ×2 (09:57→20:05)
[2019-06-26] MEDS: Lactobacillus Acidophilus CAP 1 CAP PO ×3 (09:57→20:04)
[2019-06-26] MEDS: Folic Acid 1 MG TAB 2 MG PO (09:57)
[2019-06-26] MEDS: Cyanocobalamin 100 MCG TABLET PO (09:57)
[2019-06-26] MEDS: Ascorbic Acid 500 MG TAB PO ×2 (09:57→20:05)
[2019-06-26] MEDS: Ferrous Sulfate 325 MG TAB PO (09:57)
[2019-06-26] MEDS: Anastrozole 1 MG TAB PO (09:57)
[2019-06-26] MEDS: Pantoprazole 40 MG TABCR PO (09:58)
[2019-06-26] MEDS: Nystatin POWDER 60 GM JAR TP ×3 (09:59→20:07)
[2019-06-26] MEDS: Methylphenidate 10 MG TAB 5 MG PO ×2 (09:59→14:08)
[2019-06-26] MEDS: Triamcinolone 0.1% CR 15 GM TUBE TP ×2 (09:59→20:24)
[2019-06-26 11:41] VITALS: BP 104/68; PULSE 57; RESP 18; TEMP 36.2; O2SAT 98
[2019-06-26] MEDS: Albuterol HFA 8 GM 60 PUFF INH IH ×2 (14:08→20:15)
[2019-06-26] MEDS: Budesonide/Formoterol 160/4.5 6 GM 60 PUFF INH IH ×2 (14:14→20:06)
[2019-06-26 16:04] VITALS: BP 100/58; PULSE 90; RESP 19; TEMP 36.6; O2SAT 96
[2019-06-26] MEDS: Loperamide 2 MG CAP PO (20:05)
[2019-06-26] MEDS: Zolpidem 5 MG TAB PO (20:15)
[2019-06-26] MEDS: clonazePAM 1 MG TAB 2 MG PO (20:22)
[2019-06-27 06:44] VITALS: BP 89/50; PULSE 75; RESP 16; TEMP 35.9; O2SAT 96
[2019-06-27] MEDS: Metoprolol 25 MG TAB PO ×2 (06:52→20:14)
[2019-06-27] MEDS: oxyCODONE 5 mg/Acetaminophen 325 mg TAB 1 TAB PO ×2 (06:52→20:17)
[2019-06-27] MEDS: Budesonide/Formoterol 160/4.5 6 GM 60 PUFF INH IH ×2 (09:14→22:28)
[2019-06-27] MEDS: Ferrous Sulfate 325 MG TAB PO (09:15)
[2019-06-27] MEDS: Folic Acid 1 MG TAB 2 MG PO (09:15)
[2019-06-27] MEDS: Methylphenidate 10 MG TAB 5 MG PO (09:15)
[2019-06-27] MEDS: Cyanocobalamin 100 MCG TABLET PO (09:15)
[2019-06-27] MEDS: Sertraline 50 MG TAB PO (09:15)
[2019-06-27] MEDS: Cyclobenzaprine 10 MG TAB PO ×2 (09:15→20:15)
[2019-06-27] MEDS: Lactobacillus Acidophilus CAP 1 CAP PO ×2 (09:15→20:14)
[2019-06-27] MEDS: Anastrozole 1 MG TAB PO (09:16)
[2019-06-27] MEDS: Pantoprazole 40 MG TABCR PO (09:16)
[2019-06-27] MEDS: Glucosamine 500 MG CAP PO ×2 (09:16→20:13)
[2019-06-27] MEDS: Ascorbic Acid 500 MG TAB PO ×2 (09:16→20:14)
[2019-06-27] MEDS: Albuterol HFA 8 GM 60 PUFF INH IH (09:37)
[2019-06-27 11:47] VITALS: BP 93/57; PULSE 76; RESP 19; TEMP 36.8; O2SAT 95
--- NOTE | 2019-06-27 13:31 | NUR.NOTE ---
Nursing Note: Pt tabjanice on pass, informed staff that she wouldn't be back untill dark and didn't want her 1400 meds. two minuets later she accused nursing of not giving her 1400 medications and that we obviously don't care and proceeded to wheel herself onto the elevator. Pt was offered lunch tray before she left and she declined.
--- NOTE | 2019-06-27 16:17 | NUR.NOTE ---
Patient is currently not in the unit
[2019-06-27] MEDS: clonazePAM 1 MG TAB 2 MG PO (20:13)
[2019-06-27] MEDS: Loperamide 2 MG CAP PO (20:13)
[2019-06-27] MEDS: Zolpidem 5 MG TAB PO (20:14)
[2019-06-27 22:45] VITALS: RESP 14
[2019-06-28] MEDS: oxyCODONE 5 mg/Acetaminophen 325 mg TAB 1 TAB PO ×4 (04:46→22:02)
[2019-06-28] MEDS: Metoprolol 25 MG TAB PO ×2 (06:44→21:16)
[2019-06-28 06:45] VITALS: BP 91/57; PULSE 80; O2SAT 94
[2019-06-28] MEDS: Sertraline 50 MG TAB PO (08:07)
[2019-06-28] MEDS: Methylphenidate 10 MG TAB 5 MG PO ×2 (08:07→13:44)
[2019-06-28] MEDS: Folic Acid 1 MG TAB 2 MG PO (08:07)
[2019-06-28] MEDS: Glucosamine 500 MG CAP PO ×2 (08:08→19:54)
[2019-06-28] MEDS: Ascorbic Acid 500 MG TAB PO ×2 (08:08→19:56)
[2019-06-28] MEDS: Anastrozole 1 MG TAB PO (08:08)
[2019-06-28] MEDS: Cyclobenzaprine 10 MG TAB PO ×2 (08:08→19:56)
[2019-06-28] MEDS: Cyanocobalamin 100 MCG TABLET PO (08:08)
[2019-06-28] MEDS: Pantoprazole 40 MG TABCR PO (08:08)
[2019-06-28] MEDS: Lactobacillus Acidophilus CAP 1 CAP PO ×3 (08:08→19:56)
[2019-06-28] MEDS: Ferrous Sulfate 325 MG TAB PO (08:09)
[2019-06-28] MEDS: Ergocalciferol 50000 UNITS CAP PO (10:14)
[2019-06-28] MEDS: Budesonide/Formoterol 160/4.5 6 GM 60 PUFF INH IH (19:56)
[2019-06-28] MEDS: Albuterol HFA 8 GM 60 PUFF INH IH (20:06)
[2019-06-28] MEDS: clonazePAM 1 MG TAB 2 MG PO (21:15)
[2019-06-28] MEDS: Zolpidem 5 MG TAB PO (21:16)
[2019-06-29] MEDS: oxyCODONE 5 mg/Acetaminophen 325 mg TAB 1 TAB PO ×3 (03:40→20:08)
[2019-06-29] MEDS: Metoprolol 25 MG TAB PO ×3 (06:34→20:08)
[2019-06-29] MEDS: Ferrous Sulfate 325 MG TAB PO (08:28)
[2019-06-29] MEDS: Ascorbic Acid 500 MG TAB PO ×2 (08:28→20:08)
[2019-06-29] MEDS: Methylphenidate 10 MG TAB 5 MG PO ×2 (08:28→14:30)
[2019-06-29] MEDS: Glucosamine 500 MG CAP PO ×2 (08:28→20:09)
[2019-06-29] MEDS: Pantoprazole 40 MG TABCR PO (08:29)
[2019-06-29] MEDS: Anastrozole 1 MG TAB PO (08:29)
[2019-06-29] MEDS: Sertraline 50 MG TAB PO (08:29)
[2019-06-29] MEDS: Cyanocobalamin 100 MCG TABLET PO (08:29)
[2019-06-29] MEDS: Lactobacillus Acidophilus CAP 1 CAP PO ×3 (08:29→20:09)
[2019-06-29] MEDS: Acetaminophen 325 MG TAB PO (08:29)
[2019-06-29] MEDS: Folic Acid 1 MG TAB 2 MG PO (08:30)
[2019-06-29] MEDS: Cyclobenzaprine 10 MG TAB PO ×2 (08:30→20:10)
[2019-06-29] MEDS: Budesonide/Formoterol 160/4.5 6 GM 60 PUFF INH IH ×3 (09:30→20:10)
[2019-06-29] MEDS: Albuterol HFA 8 GM 60 PUFF INH IH ×2 (10:44→20:11)
[2019-06-29 11:47] VITALS: RESP 14
[2019-06-29] MEDS: clonazePAM 1 MG TAB 2 MG PO (20:08)
[2019-06-29] MEDS: Zolpidem 5 MG TAB PO (20:09)
[2019-06-30] MEDS: oxyCODONE 5 mg/Acetaminophen 325 mg TAB 1 TAB PO ×3 (04:16→20:30)
[2019-06-30] MEDS: Metoprolol 25 MG TAB PO ×3 (06:00→20:31)
[2019-06-30 06:05] VITALS: BP 90/59; PULSE 87; RESP 18; TEMP 36.3; O2SAT 99
[2019-06-30] MEDS: Folic Acid 1 MG TAB 2 MG PO (09:46)
[2019-06-30] MEDS: Methylphenidate 10 MG TAB 5 MG PO ×2 (09:46→14:23)
[2019-06-30] MEDS: Lactobacillus Acidophilus CAP 1 CAP PO ×3 (09:46→20:30)
[2019-06-30] MEDS: Ergocalciferol 50000 UNITS CAP PO (09:46)
[2019-06-30] MEDS: Cyanocobalamin 100 MCG TABLET PO (09:46)
[2019-06-30] MEDS: Sertraline 50 MG TAB PO (09:46)
[2019-06-30] MEDS: Ascorbic Acid 500 MG TAB PO ×2 (09:46→20:31)
[2019-06-30] MEDS: Anastrozole 1 MG TAB PO (09:46)
[2019-06-30] MEDS: Glucosamine 500 MG CAP PO ×2 (09:47→20:30)
[2019-06-30] MEDS: Ferrous Sulfate 325 MG TAB PO (09:47)
[2019-06-30] MEDS: Cyclobenzaprine 10 MG TAB PO ×2 (09:47→20:30)
[2019-06-30] MEDS: Pantoprazole 40 MG TABCR PO (09:47)
--- NOTE | 2019-06-30 10:43 | NUR.NOTE ---
Nursing Note: 1040: pt in good spirits today, laughing and joking with staff. pt requests a copy of the 7 dwarfs so that she can pick out which dwarf represents which staff member. pt very pleased with copy of dwarfs and states people don't usually follow through with things that they say that they do. RN states follow through is important for everyone. this RN has cared for pt multiple times and this is the best mood/affect that the pt has presented thus far. continue to monitor.
[2019-06-30 14:25] VITALS: BP 88/50; PULSE 82
[2019-06-30] MEDS: Normal Saline Flush 10 ML SYR IVP (14:50)
--- NOTE | 2019-06-30 15:45 | CHAPLAIN ---
Prema was in bed when I visited. She had her knit hat pulled over most of her face, and then had her CPaP machine over that. She spoke to me briefly, but was not interested in a conversation.
--- NOTE | 2019-06-30 17:24 | PDOC.CMACT ---
- If Service Date Differs Date of service: 06/30/19 Time of Service: 17:25 Care Management Activity Note S/O: Prema is alert per nursing she has been cooperative. She has been up in her electric wheelchair this week, she was able to take a day trip to her friends and visit. She is able to leave the floor in her electric wheelchair often and reports she enjoys being outside. She has visited with her son when he was here from [place], and talked with her son and granddaughter over the phone. She enjoys coloring and visiting with people in the room. She has the DVD player and has been watching the [employer] series and the Browne[employer]. [place] has visited her and she enjoys her stuffed animals in the room. A: Prema is a 63 year female admitted to [facility] for ongoing placement issues after an acute stay for pneumonia and IV antibiotics. Prema had a bile drain that was placed and managed by [facility] and is chronic. She was treated for a UTI with IV antibiotics and her SSRI is currently on hold r/t treatment. Prema is in need of LTC placement she has highest needs CFC. She has a community child day care provider Tracey through [facility]. P: MICHAEL has faxed referrals to all non - [facility] facilities in [place] no bed offers. [facility] continues to review but not offering a bed at this time. [facility] met with her today and completed intake for AFC placement, [facility] anticipate meeting with her next Friday. CM did send [facility] (Department of Independent Living) an update. No accepting facilities at this time. CM to continue to coordinate placement [facility] care vs [facility].
[2019-06-30] MEDS: Zolpidem 5 MG TAB PO (20:30)
[2019-06-30] MEDS: clonazePAM 1 MG TAB 2 MG PO (20:30)
[2019-06-30] MEDS: Loperamide 2 MG CAP PO (20:31)
[2019-06-30] MEDS: Budesonide/Formoterol 160/4.5 6 GM 60 PUFF INH IH (20:32)
[2019-06-30 20:39] VITALS: BP 90/61; PULSE 81; RESP 18; TEMP 37.1; O2SAT 94
[2019-06-30 20:45] VITALS: O2SAT 94
[2019-07-01] MEDS: Acetaminophen 325 MG TAB PO (01:30)
[2019-07-01 06:12] VITALS: BP 82/51; PULSE 84
[2019-07-01] MEDS: oxyCODONE 5 mg/Acetaminophen 325 mg TAB 1 TAB PO ×2 (06:24→12:56)
[2019-07-01] MEDS: Ferrous Sulfate 325 MG TAB PO (08:58)
[2019-07-01] MEDS: Lactobacillus Acidophilus CAP 1 CAP PO ×3 (08:59→21:08)
[2019-07-01] MEDS: Cyclobenzaprine 10 MG TAB PO ×2 (08:59→21:08)
[2019-07-01] MEDS: Cyanocobalamin 100 MCG TABLET PO (08:59)
[2019-07-01] MEDS: Glucosamine 500 MG CAP PO ×2 (08:59→21:08)
[2019-07-01] MEDS: Ascorbic Acid 500 MG TAB PO ×2 (08:59→21:08)
[2019-07-01] MEDS: Folic Acid 1 MG TAB 2 MG PO (08:59)
[2019-07-01] MEDS: Sertraline 50 MG TAB PO (08:59)
[2019-07-01] MEDS: Pantoprazole 40 MG TABCR PO (09:00)
[2019-07-01] MEDS: Methylphenidate 10 MG TAB 5 MG PO ×2 (09:00→14:10)
[2019-07-01] MEDS: Anastrozole 1 MG TAB PO (09:00)
[2019-07-01] MEDS: Budesonide/Formoterol 160/4.5 6 GM 60 PUFF INH IH ×2 (09:03→21:13)
[2019-07-01] MEDS: Albuterol HFA 8 GM 60 PUFF INH IH ×2 (09:03→18:50)
[2019-07-01] MEDS: Normal Saline Flush 10 ML SYR IVP (10:55)
[2019-07-01] MEDS: Metoprolol 25 MG TAB PO ×2 (14:15→21:09)
[2019-07-01 20:13] VITALS: BP 95/62; PULSE 75; RESP 18; TEMP 36.6; O2SAT 98
[2019-07-01] MEDS: Zolpidem 5 MG TAB PO (21:08)
[2019-07-01] MEDS: clonazePAM 1 MG TAB 2 MG PO (21:08)
[2019-07-01] MEDS: Albuterol/Ipratropium 3 ML UPD VIAL UPD (22:02)
[2019-07-02 06:45] VITALS: BP 92/55; PULSE 87
[2019-07-02] MEDS: Metoprolol 25 MG TAB PO ×3 (06:45→21:06)
[2019-07-02] MEDS: Methylphenidate 10 MG TAB 5 MG PO ×2 (09:33→13:44)
[2019-07-02] MEDS: Ergocalciferol 50000 UNITS CAP PO (09:33)
[2019-07-02] MEDS: Pantoprazole 40 MG TABCR PO (09:33)
[2019-07-02] MEDS: Folic Acid 1 MG TAB 2 MG PO (09:33)
[2019-07-02] MEDS: Glucosamine 500 MG CAP PO ×2 (09:33→21:04)
[2019-07-02] MEDS: Ascorbic Acid 500 MG TAB PO ×2 (09:34→21:04)
[2019-07-02] MEDS: Ferrous Sulfate 325 MG TAB PO (09:34)
[2019-07-02] MEDS: Budesonide/Formoterol 160/4.5 6 GM 60 PUFF INH IH ×2 (09:34→21:10)
[2019-07-02] MEDS: Sertraline 50 MG TAB PO (09:34)
[2019-07-02] MEDS: Anastrozole 1 MG TAB PO (09:34)
[2019-07-02] MEDS: Cyclobenzaprine 10 MG TAB PO ×2 (09:34→21:02)
[2019-07-02] MEDS: Lactobacillus Acidophilus CAP 1 CAP PO ×3 (09:34→21:02)
[2019-07-02] MEDS: Loperamide 2 MG CAP PO ×2 (09:34→14:15)
[2019-07-02] MEDS: Albuterol HFA 8 GM 60 PUFF INH IH (09:34)
[2019-07-02] MEDS: Cyanocobalamin 100 MCG TABLET PO (09:35)
[2019-07-02] MEDS: oxyCODONE 5 mg/Acetaminophen 325 mg TAB 1 TAB PO ×2 (10:15→21:25)
[2019-07-02] MEDS: Normal Saline Flush 10 ML SYR IVP (13:37)
--- NOTE | 2019-07-02 19:54 | NUR.NOTE ---
pt off the unit , out on a pass Nursing Note:
[2019-07-02 21:00] VITALS: O2SAT 99
[2019-07-02] MEDS: clonazePAM 1 MG TAB 2 MG PO (21:02)
[2019-07-02] MEDS: Zolpidem 5 MG TAB PO (21:04)
[2019-07-02 21:07] VITALS: BP 94/64; PULSE 76; RESP 18; TEMP 36.4; O2SAT 99
[2019-07-03] MEDS: oxyCODONE 5 mg/Acetaminophen 325 mg TAB 1 TAB PO ×3 (04:52→22:23)
[2019-07-03] MEDS: Metoprolol 25 MG TAB PO ×2 (05:00→22:23)
[2019-07-03] MEDS: Normal Saline Flush 10 ML SYR IVP (11:02)
[2019-07-03] MEDS: Folic Acid 1 MG TAB 2 MG PO (11:03)
[2019-07-03] MEDS: Cyclobenzaprine 10 MG TAB PO ×2 (11:03→22:20)
[2019-07-03] MEDS: Anastrozole 1 MG TAB PO (11:03)
[2019-07-03] MEDS: Pantoprazole 40 MG TABCR PO (11:03)
[2019-07-03] MEDS: Lactobacillus Acidophilus CAP 1 CAP PO ×3 (11:03→22:22)
[2019-07-03] MEDS: Methylphenidate 10 MG TAB 5 MG PO ×2 (11:03→14:23)
[2019-07-03] MEDS: Glucosamine 500 MG CAP PO ×2 (11:03→22:20)
[2019-07-03] MEDS: Sertraline 50 MG TAB PO (11:03)
[2019-07-03] MEDS: Ferrous Sulfate 325 MG TAB PO (11:04)
[2019-07-03] MEDS: Cyanocobalamin 100 MCG TABLET PO (11:04)
[2019-07-03] MEDS: Loperamide 2 MG CAP PO (11:04)
[2019-07-03] MEDS: Ascorbic Acid 500 MG TAB PO ×2 (11:04→22:20)
[2019-07-03] MEDS: Budesonide/Formoterol 160/4.5 6 GM 60 PUFF INH IH ×2 (11:06→22:12)
[2019-07-03 12:09] VITALS: RESP 1; O2SAT 96
[2019-07-03] MEDS: Albuterol/Ipratropium 3 ML UPD VIAL UPD (12:09)
[2019-07-03 14:19] VITALS: BP 86/55; PULSE 76; RESP 18; TEMP 36.2; O2SAT 93
[2019-07-03] MEDS: Albuterol HFA 8 GM 60 PUFF INH IH (22:19)
[2019-07-03] MEDS: Zolpidem 5 MG TAB PO (22:20)
[2019-07-03] MEDS: clonazePAM 1 MG TAB 2 MG PO (22:22)
[2019-07-03 23:49] VITALS: O2SAT 93
[2019-07-03 23:54] VITALS: BP 112/75; PULSE 103; RESP 18; TEMP 37.1; O2SAT 94
--- NOTE | 2019-07-04 05:52 | NUR.NOTE ---
Agnieszka rang to be changed CHALK TESTER then told her that she would be right back to get an extra set of hands to help her, I then Grabbed LIBRADO RAPHAEL to help me (CHALK TESTER Charla) change her, we went in and i had turned the fan away from me so it was not blowing on me and turned it to 1 and LIBRADO RAPHAEL told her that she was going to move her purse so we could change her, she then flipped out and told us not to touch her things i explained to her that we were going to put everything back after we changed her, she then stated she did not want us to changer her anymore because we couldn't leave her things alone. she stated i don't want people in here who are going to move and change my things around. CJ then said to pt we would like to change you so you don't get a sore and we dont want to leave you wet like this, we will put everything back after we change you. Pt stated no i dont want you girls to change me now. We put her things back and left the room, RN is notified
[2019-07-04] MEDS: Metoprolol 25 MG TAB PO ×3 (06:26→20:30)
[2019-07-04] MEDS: oxyCODONE 5 mg/Acetaminophen 325 mg TAB 1 TAB PO ×2 (06:26→20:30)
[2019-07-04 07:30] VITALS: BP 97/58; PULSE 88; RESP 18; TEMP 36.5; O2SAT 94
[2019-07-04] MEDS: Cyanocobalamin 100 MCG TABLET PO (09:20)
[2019-07-04] MEDS: Folic Acid 1 MG TAB 2 MG PO (09:20)
[2019-07-04] MEDS: Ferrous Sulfate 325 MG TAB PO (09:20)
[2019-07-04] MEDS: Lactobacillus Acidophilus CAP 1 CAP PO ×3 (09:20→20:29)
[2019-07-04] MEDS: Glucosamine 500 MG CAP PO ×2 (09:20→20:29)
[2019-07-04] MEDS: Pantoprazole 40 MG TABCR PO (09:21)
[2019-07-04] MEDS: Cyclobenzaprine 10 MG TAB PO ×2 (09:21→20:30)
[2019-07-04] MEDS: Sertraline 50 MG TAB PO (09:21)
[2019-07-04] MEDS: Ascorbic Acid 500 MG TAB PO ×2 (09:21→20:30)
[2019-07-04] MEDS: Anastrozole 1 MG TAB PO (09:22)
[2019-07-04] MEDS: Methylphenidate 10 MG TAB 5 MG PO ×2 (09:22→14:24)
[2019-07-04] MEDS: Budesonide/Formoterol 160/4.5 6 GM 60 PUFF INH IH ×2 (10:39→20:29)
[2019-07-04] MEDS: Albuterol HFA 8 GM 60 PUFF INH IH ×2 (10:57→20:28)
[2019-07-04 14:23] VITALS: BP 98/58; PULSE 85; O2SAT 95
[2019-07-04] MEDS: Loperamide 2 MG CAP PO (14:23)
[2019-07-04] MEDS: Acetaminophen 325 MG TAB PO (19:06)
[2019-07-04] MEDS: clonazePAM 1 MG TAB 2 MG PO (20:29)
[2019-07-04] MEDS: Zolpidem 5 MG TAB PO (20:29)
[2019-07-05] MEDS: oxyCODONE 5 mg/Acetaminophen 325 mg TAB 1 TAB PO ×3 (02:19→20:30)
[2019-07-05] MEDS: Acetaminophen 325 MG TAB PO ×3 (04:27→22:47)
[2019-07-05] MEDS: Metoprolol 25 MG TAB PO ×3 (05:09→20:30)
[2019-07-05 05:14] VITALS: BP 93/57; PULSE 79; RESP 16; TEMP 36.6; O2SAT 99
[2019-07-05 05:16] VITALS: O2SAT 99
[2019-07-05] MEDS: Pantoprazole 40 MG TABCR PO (09:31)
[2019-07-05] MEDS: Folic Acid 1 MG TAB 2 MG PO (09:31)
[2019-07-05] MEDS: Ergocalciferol 50000 UNITS CAP PO (09:31)
[2019-07-05] MEDS: Lactobacillus Acidophilus CAP 1 CAP PO ×3 (09:31→20:29)
[2019-07-05] MEDS: Ascorbic Acid 500 MG TAB PO ×2 (09:32→20:31)
[2019-07-05] MEDS: Sertraline 50 MG TAB PO (09:32)
[2019-07-05] MEDS: Anastrozole 1 MG TAB PO (09:32)
[2019-07-05] MEDS: Cyclobenzaprine 10 MG TAB PO ×2 (09:32→20:29)
[2019-07-05] MEDS: Cyanocobalamin 100 MCG TABLET PO (09:32)
[2019-07-05] MEDS: Ferrous Sulfate 325 MG TAB PO (09:32)
[2019-07-05] MEDS: Glucosamine 500 MG CAP PO ×2 (09:32→20:29)
[2019-07-05] MEDS: Methylphenidate 10 MG TAB 5 MG PO ×2 (09:33→13:50)
[2019-07-05] MEDS: Budesonide/Formoterol 160/4.5 6 GM 60 PUFF INH IH ×2 (10:24→20:27)
[2019-07-05] MEDS: Albuterol HFA 8 GM 60 PUFF INH IH ×2 (10:25→20:27)
[2019-07-05 10:36] VITALS: RESP 14
[2019-07-05] MEDS: Normal Saline Flush 10 ML SYR IVP (13:53)
[2019-07-05 14:30] VITALS: BP 105/67; PULSE 77
--- NOTE | 2019-07-05 15:03 | NUR.NOTE ---
PT wanted to get dressed and changed, i told her i was going to get help, came back in and she kicked LNAS out
--- NOTE | 2019-07-05 16:33 | CHAPLAIN ---
Prema was sitting up in her bed when I visited today. She showed me some of the crocheted squares she has that her mother and grandmother made. Prema plans to make more squares and put them all together to create a blanket. I gave her some yarn from our prayer shawl program. Prema was pleasant, and enjoying a conversation with Radha, from [facility], when I walked in.
[2019-07-05] MEDS: clonazePAM 1 MG TAB 2 MG PO (20:28)
[2019-07-05] MEDS: Zolpidem 5 MG TAB PO (20:29)
[2019-07-05 21:53] VITALS: RESP 14
[2019-07-05 21:54] VITALS: O2SAT 86
--- NOTE | 2019-07-05 23:55 | NUR.NOTE ---
Nursing Note: At bedtime, pt stated that she should be having the SCD's, staff writer responded that it was in the report that she refused and checked on MD's order not written. Instead complained of leg pain, tylenol given as requested. Both lower extremities remains edematous.
[2019-07-06] MEDS: oxyCODONE 5 mg/Acetaminophen 325 mg TAB 1 TAB PO ×2 (05:05→14:04)
[2019-07-06] MEDS: Metoprolol 25 MG TAB PO ×3 (05:06→21:27)
[2019-07-06 05:08] VITALS: BP 89/59; PULSE 76; RESP 18; O2SAT 100
[2019-07-06] MEDS: Lactobacillus Acidophilus CAP 1 CAP PO ×3 (08:53→21:28)
[2019-07-06] MEDS: Glucosamine 500 MG CAP PO ×2 (08:53→21:27)
[2019-07-06] MEDS: Pantoprazole 40 MG TABCR PO (08:53)
[2019-07-06] MEDS: Ascorbic Acid 500 MG TAB PO ×2 (08:53→21:27)
[2019-07-06] MEDS: Methylphenidate 10 MG TAB 5 MG PO ×2 (08:53→14:03)
[2019-07-06] MEDS: Ferrous Sulfate 325 MG TAB PO (08:53)
[2019-07-06] MEDS: Sertraline 50 MG TAB PO (08:53)
[2019-07-06] MEDS: Cyclobenzaprine 10 MG TAB PO ×2 (08:53→21:27)
[2019-07-06] MEDS: Anastrozole 1 MG TAB PO (08:53)
[2019-07-06] MEDS: Folic Acid 1 MG TAB 2 MG PO (08:53)
[2019-07-06] MEDS: Cyanocobalamin 100 MCG TABLET PO (08:55)
[2019-07-06] MEDS: Acetaminophen 325 MG TAB PO (09:16)
[2019-07-06] MEDS: Budesonide/Formoterol 160/4.5 6 GM 60 PUFF INH IH ×2 (10:50→21:33)
[2019-07-06] MEDS: Albuterol HFA 8 GM 60 PUFF INH IH (10:51)
[2019-07-06 12:28] LABS: Bilirubin Negative (Negative); Blood Moderate (Negative); Clarity Sl Cloudy (Clear); Glucose Negative (Negative); Ketones Negative (Negative); Leukocyte Esterase Moderate (Negative); Nitrite Positive (Negative); Urobilinogen 0.2 EU/dL (Up TO 0.2); pH 5.5 (5-8)
[2019-07-06 12:40] LABS: C & S Indicated? Yes; WBC >50 HPF (0-5)
[2019-07-06 13:03] VITALS: RESP 14
[2019-07-06 14:00] VITALS: BP 104/67; PULSE 75; RESP 16; TEMP 37; O2SAT 95
[2019-07-06] MEDS: MacroBID 100 MG CAP PO ×2 (15:45→21:27)
--- NOTE | 2019-07-06 17:26 | CMPROGNOTE_ITS ---
- If Service Date Differs Date of service: 07/06/19 Time of Service: 17:26 Care Management Progress Note S/O: Met with Prema at the bedside she is alert and engaged. CM reviewed safe activity with the patient, including not using her electric wheelchair to drive downtown and not traveling in the dark on her wheelchair. Prema has been up to her wheelchair most days she wants to start transferring to the commode to become more independent. She would like to know if she is able to return an ap artment on her own instead of retirement or AFC home. CM did reach out to [facility] to request assistance with finding other options in the community. [facility] is planning on meeting with her this week and [facility] had a meeting today to discuss homes that may be appropriate. CM contacted Department of aging and independently living again to request more assistance in placement. Prema remains in SB2 status until placement or safe discharge plan can be identified. P: Prema will be discharged to safe environment when placement has been identified. There are no accepting nursing facilities at this time. Options include AFC placement or independent living with community supports. CM requested a team meeting with community partners and services including [place] [facility] aging and subsidized housing support including [facility] and [facility] to determine if there is alternative for community housing.
--- NOTE | 2019-07-06 18:28 | PGE_ITS ---
Date of Service Date of service: 07/06/19 Time of Service: 18:28 Assessment and Plan (1) UTI (urinary tract infection): Current visit: Yes Status: Resolved Urinalysis shows greater than 50 white cells and positive nitrites, positive leukocytes. Culture is pending. It appears she has an acute urinary tract infection. The concern is she has multiple drug allergies and drug intera ctions. We will try empiric therapy with Macrobid 100 mg twice daily pending further cultures PC is and sensitivities. (2) Chronic pain: Current visit: No Status: None Patient has chronic pain and chronic opioid use disorder. She is on Percocet 1 p.o. every 4 as needed we will increase it to 1-2 p.o. every 4 hours as needed while she has this acute lower back discomfort. I am hopeful this is transient and related primarily to the acute cystitis. I do not think she has an upper tract infection. Subjective Interval history since last seen: Patient began to have increasing somatic co mplaints of urinary frequency and low back pain. She denies any fever chills or rigors. There was no trauma. She has been crying out in pain and limiting her movement because of her lower back pain. Exam Narrative Exam Narrative: On exam patient is visibly distraught. She is bargaining for increased pain meds. Exam of her lower back reveals no evidence of CVA tenderness. Most of her discomfort is in the lower mid vertebral spine region. There is no swelling or deformity in this region. She is flexing her and extending her legs without difficulty. Objective Objective Clinical Data: Abnormal lab results 07/06/19 Range/Units 12:00 Urine Protein 100 H (Negative) mg/dL Urine Blood Moderate H (Negative) Urine Nitrite Positive H (Negative) Ur Leukocyte Esterase Moderate H (Negative) Vital Signs Temperature 37.0 C 07/06/19 14:00 Temperature Source Skin 07/06/19 14:00 Pulse 75 07/06/19 14:00 Pulse Rhythm Regular 07/06/19 15:49 Respiratory Rate 16 07/06/19 14:00 Respiratory Effort 07/06/19 15:49 Respiratory Depth Normal 07/06/19 15:49 Respiratory Pattern Normal 07/06/19 15:49 Blood Pressure 104/67 07/06/19 14:00 Pulse Oximetry 95 07/06/19 14:00 Oxygen Delivery Method Nasal Cannula 07/06/19 14:00 Oxygen Flow Rate 2 07/06/19 14:00 Fraction of Inspired Oxygen (FIO2) 21 06/24/19 08:10 Pain Level 3 07/06/19 15:04 Comment 07/03/19 23:54 Intake & Output 07/05/19 07/06/19 07/06/19 23:59 11:59 23:59 Intake Total 5 / 445 885 / 885 Output Total 1075 / 1950 750 / 1350 600 / 1350 Balance -1070 / -1505 -750 / -465 285 / -465 Intake: Oral 880 / 880 Injectate 5 / 5 5 / 5 Right Abdomen 5 / 5 5 / 5 Output: Drainage 475 / 850 300 / 300 Right Abdomen 475 / 850 300 / 300 Urine 600 / 1100 750 / 1050 300 / 1050 Other: Urine Color Straw Straw Yellow Straw Urine Appearance Cloudy Cloudy Cloudy Urine Odor Strong Normal Comment pt having increased frequency today in comparison to 07/05 Stool Size Large Large Stool Characteristics Soft Soft Formed Brown Green Voiding Methods Bedpan Bedpan Bedpan Laboratory Results WBC 6.43 k/cumm (4.4-10.8) 06/21/19 06:37 RBC 3.37 m/cumm (4.00-5.20) L 06/21/19 06:37 Hgb 11.4 g/dL (12.0-15.5) L 06/21/19 06:37 Hct 36.6 % (36.0-46.0) 06/21/19 06:37 MCV 108.6 fL (80-95) H 06/21/19 06:37 MCH 33.8 pg (27.0-33.0) H 06/21/19 06:37 MCHC 31.1 g/dL (32.0-36.0) L 06/21/19 06:37 RDW 14.7 % (11.7-14.6) H 06/21/19 06:37 Plt Count 154 x1000/uL (130-400) 06/21/19 06:37 MPV 10.2 fL (8.0-11.0) 06/21/19 06:37 Immature Gran % 0.0 06/21/19 06:37 77.7 06/21/19 06:37 11.2 06/21/19 06:37 7.3 06/21/19 06:37 3.3 06/21/19 06:37 0.5 06/21/19 06:37 Absolute Neutrophils 5.00 k/cumm (1.2-6.7) 06/21/19 06:37 Absolute Lymphocytes 0.72 k/cumm (1.2-3.4) L 06/21/19 06:37 Absolute Monocytes 0.47 k/cumm (0.11-0.7) 06/21/19 06:37 Absolute Eosinophils 0.21 k/cumm (0.0-0.7) 06/21/19 06:37 Absolute Basophils 0.03 k/cumm (0.0-0.2) 06/21/19 06:37 Sodium 141 mmol/L (136-145) 06/21/19 06:37 Potassium 4.4 mmol/L (3.5-5.1) 06/21/19 06:37 Chloride 104 mmol/L (98-107) 06/21/19 06:37 Carbon Dioxide 32.8 mmol/L (21.0-32.0) H 06/21/19 06:37 4.2 mmol/L (3-11) 06/21/19 06:37 BUN 11 mg/dL (7-18) 06/21/19 06:37 0.50 mg/dL (0.55-1.02) L 06/21/19 06:37 >= 60.00 (mL/min/1.73m2) 06/21/19 06:37 Glucose 95 mg/dL (70-100) 06/21/19 06:37 Calcium 8.9 mg/dL (8.5-10.1) 06/21/19 06:37 Magnesium 1.9 mg/dL (1.8-2.4) 06/21/19 06:37 0.6 mg/dL (0.2-1.0) 06/21/19 06:37 0.22 mg/dL (0.00-0.20) H 06/21/19 06:37 AST 21 U/L (15-37) 06/21/19 06:37 ALT 32 U/L (14-59) 06/21/19 06:37 118 U/L (46-116) H 06/21/19 06:37 6.6 g/dL (6.4-8.2) 06/21/19 06:37 2.3 g/dL (3.4-5.0) L 06/21/19 06:37 Yellow (Yellow) 07/06/19 12:00 Sl cloudy (Clear) 07/06/19 12:00 5.5 (5-8) 07/06/19 12:00 Ur Specific [place] 1.020 (1.005-1.025) 07/06/19 12:00 100 mg/dL (Negative) H 07/06/19 12:00 Negative mg/dL (Negative) 07/06/19 12:00 Moderate (Negative) H 07/06/19 12:00 Positive (Negative) H 07/06/19 12:00 Negative (Negative) 07/06/19 12:00 0.2 EU/dL (Up TO 0.2) 07/06/19 12:00 Ur Leukocyte Esterase Moderate (Negative) H 07/06/19 12:00 Not Applicable 07/06/19 12:00 >50 HPF (0-5) 07/06/19 12:00 Ur Epithelial Cells Not Applicable 07/06/19 12:00 Not Applicable 07/06/19 12:00 Not Applicable 07/06/19 12:00 Not Applicable 07/06/19 12:00 Ur Culture Indicated? Yes 07/06/19 12:00 Negative mg/dL (Negative) 07/06/19 12:00
--- NOTE | 2019-07-06 20:47 | NUR.NOTE ---
Nursing went in to assess patient at 2019, I introduced myself to patient told her i will be her nurse until in the morning. Pt state she is in a puddled of urine and she needs to be changed at this time. I put gloves on, to assist patient off the bedpan, she immediately said she has some food to go on the refrigerator and she does not want it to get spoilt. Nursing told her after i finished assisting her off the bedpan i will put the food in the fridge. She started screaming at me stating she does not want her food to be spoilt, i reminded her that she is in the puddle and she is already being treated for a UTI, she screamed at nursing again stating she already knows this and she does not want her food to be spoilt. Pt then state she wants me out of room and she does not want me to her nurse and refused coming off the bedpan. Same was reported to the Charge Nurse on duty.
--- NOTE | 2019-07-06 20:54 | NUR.NOTE ---
Nursing Note: Patient rang call light and when approached she stated that she had reported her nurse. When I asked why she rang she told me she didn't ring and then refused to communicate any farther.
[2019-07-06 21:05] VITALS: BP 101/65; PULSE 75; RESP 18; TEMP 36.7; O2SAT 98
--- NOTE | 2019-07-06 21:07 | NUR.NOTE ---
Nursing Note: At around 20:20 pt refused care from all of the staff, including aids and nurses. This telegraphic typewriter operator went in to talk with pt and try and get her off the bedpan. This telegraphic typewriter operator asked her what was going on, pt refused to talk about it. Pt was asked 3 times if this telegraphic typewriter operator could take her off the bedpan. Pt refused to get off the bedpan. This telegraphic typewriter operator was told that pt spoke with care management as well. Pt still refusing care. This telegraphic typewriter operator spoke with nursing supervisor roving and was told to give the pt supplies she needs to get off the bedpan and clean herself up. Will continue to monitor. At around 21:16 pt rang to get off the bedpan. She states that she does not know why no one came in to get her cleaned up and take her off the bedpan. She states that she never kicked anyone out of the room. The aid is currently cleaning the pt up. Will continue to monitor.
[2019-07-06] MEDS: clonazePAM 1 MG TAB 2 MG PO (21:27)
[2019-07-06] MEDS: Zolpidem 5 MG TAB PO (21:27)
[2019-07-06] MEDS: oxyCODONE 5 mg/Acetaminophen 325 mg TAB PO (21:28)
--- NOTE | 2019-07-06 21:46 | NUR.NOTE ---
Patient requested for me to give her, her medications while the aid is in there. While scanning her medications i started humming she screamed at me stating she dont want any humming from me, so i stopped and continue with her medications. Prema started saying in a very offensive manner that i would reach further than where i am presently. She state in the a most offensive tone that i should go back where i am coming from and that i am not needed here. 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 She state she heard that i reported her and she heard about it. All this was relayed to the Charge Nurse on duty.
[2019-07-07] MEDS: Acetaminophen 325 MG TAB PO ×3 (04:55→19:36)
[2019-07-07] MEDS: Metoprolol 25 MG TAB PO ×3 (04:55→21:17)
[2019-07-07 05:02] VITALS: BP 91/55; PULSE 80
[2019-07-07 07:24] LABS: Abs Immature Grans 0.01 k/cumm (0.0-0.09); Absolute Basophil Count 0.03 k/cumm (0.0-0.2); Absolute Lymphocyte Count 1.06 k/cumm (1.2-3.4); Absolute Monocyte Count 0.45 k/cumm (0.11-0.7); Absolute Neutrophil Count 5.17 k/cumm (1.2-6.7); Basophils % 0.4; Eosinophils % 4.3; HCT 39.8 % (36.0-46.0); HGB 12.2 g/dL (12.0-15.5); Immature Grans % 0.1; Lymphocytes % 15.1; Mean Corp. HGB Concentration 30.7 g/dL (32.0-36.0); Mean Corpuscular Volume 107.6 fL (80-95); Mean Platelet Volume 10.7 fL (8.0-11.0); Monocytes % 6.4; Neutrophils % 73.7; Platelet Count 184 x1000/uL (130-400); RBC Distribution Width 13.8 % (11.7-14.6); White Blood Cell Count 7.02 k/cumm (4.4-10.8)
[2019-07-07 07:29] LABS: Anion Gap 6.5 mmol/L (3-11); BUN 24 mg/dL (7-18); CO2 27.5 mmol/L (21.0-32.0); CREATININE 0.88 mg/dL (0.55-1.02); Calcium 8.8 mg/dL (8.5-10.1); Chloride 104 mmol/L (98-107); Glucose 91 mg/dL (70-100); Potassium 4.2 mmol/L (3.5-5.1); Sodium 138 mmol/L (136-145)
[2019-07-07] MEDS: Budesonide/Formoterol 160/4.5 6 GM 60 PUFF INH IH ×2 (07:54→21:16)
[2019-07-07] MEDS: Albuterol HFA 8 GM 60 PUFF INH IH ×2 (07:58→21:17)
[2019-07-07 07:59] VITALS: RESP 14
[2019-07-07] MEDS: Methylphenidate 10 MG TAB 5 MG PO ×2 (08:17→13:50)
[2019-07-07] MEDS: Cyanocobalamin 100 MCG TABLET PO (08:18)
[2019-07-07] MEDS: MacroBID 100 MG CAP PO ×2 (08:18→19:37)
[2019-07-07] MEDS: Lactobacillus Acidophilus CAP 1 CAP PO ×3 (08:18→19:35)
[2019-07-07] MEDS: Folic Acid 1 MG TAB 2 MG PO (08:18)
[2019-07-07] MEDS: Glucosamine 500 MG CAP PO ×2 (08:18→19:35)
[2019-07-07] MEDS: Pantoprazole 40 MG TABCR PO (08:18)
[2019-07-07] MEDS: Ferrous Sulfate 325 MG TAB PO (08:18)
[2019-07-07] MEDS: Ascorbic Acid 500 MG TAB PO ×2 (08:19→19:36)
[2019-07-07] MEDS: Anastrozole 1 MG TAB PO (08:19)
[2019-07-07] MEDS: Cyclobenzaprine 10 MG TAB PO ×2 (08:19→19:37)
[2019-07-07] MEDS: Sertraline 50 MG TAB PO (08:19)
[2019-07-07] MEDS: Milk of Magnesia 30 ML CUP PO (08:31)
[2019-07-07] MEDS: oxyCODONE 5 mg/Acetaminophen 325 mg TAB PO ×4 (10:53→22:12)
[2019-07-07] MEDS: Ergocalciferol 50000 UNITS CAP PO (10:54)
[2019-07-07 12:45] VITALS: BP 85/60; PULSE 93; RESP 20; TEMP 36.5; O2SAT 96
[2019-07-07] MEDS: Methylphenidate 10 MG TAB PO (14:20)
[2019-07-07 15:55] VITALS: TEMP 36.2
[2019-07-07] MEDS: Lidocaine 5% Patch 1 PATCH TP (17:22)
[2019-07-07] MEDS: Mylanta Suspension 30 ML CUP PO (19:42)
[2019-07-07 21:05] VITALS: BP 91/57; PULSE 72
[2019-07-07] MEDS: clonazePAM 1 MG TAB 2 MG PO (21:17)
[2019-07-07] MEDS: Zolpidem 5 MG TAB PO (21:17)
[2019-07-08] MEDS: Metoprolol 25 MG TAB PO ×2 (06:08→20:07)
[2019-07-08] MEDS: oxyCODONE 5 mg/Acetaminophen 325 mg TAB PO ×2 (06:09→18:22)
[2019-07-08 07:14] VITALS: BP 89/53; PULSE 75; RESP 18; TEMP 36.7; O2SAT 98
[2019-07-08 07:46] VITALS: O2SAT 94
[2019-07-08] MEDS: Albuterol HFA 8 GM 60 PUFF INH IH (07:47)
[2019-07-08] MEDS: Budesonide/Formoterol 160/4.5 6 GM 60 PUFF INH IH ×2 (07:49→19:52)
[2019-07-08] MEDS: Pantoprazole 40 MG TABCR PO (08:35)
[2019-07-08] MEDS: Lactobacillus Acidophilus CAP 1 CAP PO ×2 (08:35→19:43)
[2019-07-08] MEDS: Cyclobenzaprine 10 MG TAB PO ×2 (08:35→19:43)
[2019-07-08] MEDS: Ascorbic Acid 500 MG TAB PO ×2 (08:35→19:43)
[2019-07-08] MEDS: Sertraline 50 MG TAB PO (08:36)
[2019-07-08] MEDS: Cyanocobalamin 100 MCG TABLET PO (08:36)
[2019-07-08] MEDS: Glucosamine 500 MG CAP PO ×2 (08:36→19:43)
[2019-07-08] MEDS: MacroBID 100 MG CAP PO ×2 (08:36→19:43)
[2019-07-08] MEDS: Senna TAB 1 TAB PO (08:36)
[2019-07-08] MEDS: Anastrozole 1 MG TAB PO (08:36)
[2019-07-08] MEDS: Ferrous Sulfate 325 MG TAB PO (08:36)
[2019-07-08] MEDS: Methylphenidate 10 MG TAB PO (08:36)
[2019-07-08] MEDS: Folic Acid 1 MG TAB 2 MG PO (08:36)
--- NOTE | 2019-07-08 11:18 | NUR.NOTE ---
Nursing Note: Prema signed release of absence. Left the hospital via [facility] w/ Ana Mai for an appointment for a new wheelchair. Pt reported she had all of her belongings that she needed (including 4 full O2 tanks, O2 tubing, BP cuff, medications from pharmacy, two bags w/ belongings, blanket, and stuffed cats). Pt was in stable condition w/ her wheelchair. Plans on being back around 1800 today.
--- NOTE | 2019-07-08 13:23 | NUR.NOTE ---
[facility] student Ainsley went into Pts room at 07:15am to get a set of vital signs, Contact Center Team Lead then asked Are you leaving for an appointment today? Pt said Yes i am supposed to leave at 10:30 this morning I then asked her if we could come in at 9 to start getting her washed up she said no 9:30 works so i can sleep no earlier. I said okay Contact Center Team Lead and student then went back to room at 09:30am woke pt up to begin care. I asked Do you think you should use the bedpan before leaving? I know its a long ride to [place] she yelled : I don't know i just woke up leave me alone would ya. I then continued to try and help pt use the bedpan and get dressed and in the wheelchair by 10:30. Pt told me multiple times that i needed to shut up, she was being verbally abusive. she told me i didn't know what i was doing and i needed to let the nurse (Sheila) do her care because I didn't do it right. Once she got to the chair she asked to remove a stuffed cat from the back of her pants and put it in the front, so i helped her take it out from the back and she screamed at me and told me not to touch her and that i had no reason to move that stuffed cat from the back of her after she told me to remove it. She continued to verbally abuse me while I was in there trying to assist her with care until I had to take a break and step out of the room.
[2019-07-08] MEDS: Acetaminophen 325 MG TAB PO (19:43)
[2019-07-08] MEDS: clonazePAM 1 MG TAB 2 MG PO (20:06)
[2019-07-08] MEDS: Zolpidem 5 MG TAB PO (20:07)
[2019-07-08 20:14] VITALS: BP 95/52; PULSE 65; RESP 18; TEMP 37.2; O2SAT 99
[2019-07-09] MEDS: oxyCODONE 5 mg/Acetaminophen 325 mg TAB PO ×5 (00:54→18:36)
[2019-07-09] MEDS: Metoprolol 25 MG TAB PO ×3 (05:47→21:01)
[2019-07-09 05:48] VITALS: BP 95/65; PULSE 85
[2019-07-09 07:39] VITALS: RESP 14
[2019-07-09] MEDS: Budesonide/Formoterol 160/4.5 6 GM 60 PUFF INH IH ×2 (07:47→21:05)
--- NOTE | 2019-07-09 09:17 | NUR.NOTE ---
Went in to wake Prema up at 9am to eat and get changed she refused to take her hat off her eyes or even talk to me. Nursing Note:
[2019-07-09] MEDS: MacroBID 100 MG CAP PO ×2 (10:11→20:50)
[2019-07-09] MEDS: Anastrozole 1 MG TAB PO (10:11)
[2019-07-09] MEDS: Ergocalciferol 50000 UNITS CAP PO (10:11)
[2019-07-09] MEDS: Cyanocobalamin 100 MCG TABLET PO (10:11)
[2019-07-09] MEDS: Pantoprazole 40 MG TABCR PO (10:12)
[2019-07-09] MEDS: Folic Acid 1 MG TAB 2 MG PO (10:12)
[2019-07-09] MEDS: Glucosamine 500 MG CAP PO ×2 (10:12→20:50)
[2019-07-09] MEDS: Cyclobenzaprine 10 MG TAB PO ×2 (10:12→20:51)
[2019-07-09] MEDS: Acetaminophen 325 MG TAB PO ×2 (10:13→17:37)
[2019-07-09] MEDS: Ferrous Sulfate 325 MG TAB PO (10:14)
[2019-07-09] MEDS: Senna TAB 1 TAB PO (10:14)
[2019-07-09] MEDS: Ascorbic Acid 500 MG TAB PO ×2 (10:14→20:51)
[2019-07-09] MEDS: Lactobacillus Acidophilus CAP 1 CAP PO ×3 (10:14→20:51)
[2019-07-09] MEDS: Methylphenidate 10 MG TAB PO ×2 (10:15→14:06)
[2019-07-09] MEDS: Sertraline 50 MG TAB PO (10:15)
[2019-07-09 10:55] VITALS: BP 104/72; PULSE 73; RESP 21; TEMP 36; O2SAT 96
[2019-07-09 14:06] VITALS: BP 91/56; PULSE 99
--- NOTE | 2019-07-09 14:22 | NUR.NOTE ---
offered Prema to get washed up at 10am 11:30am and at 1:40pm she refused all three times. Nursing Note:
--- NOTE | 2019-07-09 14:43 | PDOC.CMACT ---
- If Service Date Differs Date of service: 07/09/19 Time of Service: 14:43 Care Management Activity Note S/O: Prema has a behavioral plan in place she does need frequent reminders of the plan and encouragement to get up to her chair and allow staff to care for her. She was able to go out to her appointment yesterday with her friend Ana where she was fitted for her new chair. Prema is aware of her meeting on Friday she does continue to request an apartment instead of AFC placement. CM has consistently reminded the patient the level of care she needed to care for herself is more than a home health provider could provide. CM has contacted community resources and requested a team meeting after the AFC meeting on Friday to assist with finding approbate placement. Prema has enjoyed being out in her wheelchair, she has gone outside for fresh air and visited in town. She has been able to do her banking and visit with friends. She enjoys animals and had dogs in town she visits. Prema has coloring in her room and likes to watch movies on the television and DVD provided. A: Prema is a 63 year female admitted to 2 for ongoing placement issues after an acute stay for pneumonia and IV antibiotics. Prema had a bile drain that was placed and managed by [facility] [place] [facility] and is chronic. She was treated for a UTI wtih oral medications. She has a community career center director Tracey through [facility]. P: MICHAEL has faxed referrals to all non - [facility] facilities in [place] no bed offers. [facility] has set up a meeting for Friday with Prema at 1000 possible AFC placement. MICHAEL did send KAREN ([facility]) an update. No accepting facilities at this time. CM to continue to coordinate placement [facility] care vs AFC vs housing.
--- NOTE | 2019-07-09 14:48 | CHAPLAIN ---
Prema was playing INDERJIT with a friend when I visited. She was interested in getting some blue yarn from my office and asked me to bring it to her since she wasn't getting out and about in her wheelchair today, she said. Yesterday she went to [place] for an appointment and said the trip went well except her back is hurting and it was hurting before she left yesterday.
[2019-07-09 17:00] VITALS: BP 97/63; PULSE 82; RESP 14; TEMP 36.6; O2SAT 93
[2019-07-09] MEDS: Milk of Magnesia 30 ML CUP PO (18:31)
[2019-07-09] MEDS: Docusate Sodium 100 MG CAP PO (18:31)
[2019-07-09 21:01] VITALS: BP 109/66; PULSE 90; RESP 19; TEMP 36; O2SAT 96
[2019-07-09] MEDS: Zolpidem 5 MG TAB PO (21:01)
[2019-07-09] MEDS: clonazePAM 1 MG TAB 2 MG PO (21:01)
[2019-07-10] MEDS: oxyCODONE 5 mg/Acetaminophen 325 mg TAB PO ×5 (00:14→20:10)
[2019-07-10] MEDS: Albuterol/Ipratropium 3 ML UPD VIAL UPD (03:59)
[2019-07-10] MEDS: Metoprolol 25 MG TAB PO ×3 (06:17→20:34)
[2019-07-10] MEDS: Ascorbic Acid 500 MG TAB PO ×2 (07:19→20:00)
[2019-07-10] MEDS: Folic Acid 1 MG TAB 2 MG PO (07:20)
[2019-07-10] MEDS: Lactobacillus Acidophilus CAP 1 CAP PO ×3 (07:20→20:00)
[2019-07-10] MEDS: Sertraline 50 MG TAB PO (07:20)
[2019-07-10] MEDS: Cyanocobalamin 100 MCG TABLET PO (07:21)
[2019-07-10] MEDS: Senna TAB 1 TAB PO (07:21)
[2019-07-10] MEDS: Cyclobenzaprine 10 MG TAB PO ×2 (07:21→20:00)
[2019-07-10] MEDS: Glucosamine 500 MG CAP PO ×2 (07:21→20:00)
[2019-07-10] MEDS: Pantoprazole 40 MG TABCR PO (07:21)
[2019-07-10] MEDS: Methylphenidate 10 MG TAB PO ×2 (07:21→13:55)
[2019-07-10] MEDS: Ferrous Sulfate 325 MG TAB PO (07:21)
[2019-07-10] MEDS: Anastrozole 1 MG TAB PO (07:21)
[2019-07-10] MEDS: MacroBID 100 MG CAP PO ×2 (07:22→20:00)
[2019-07-10] MEDS: Acetaminophen 325 MG TAB PO ×2 (07:38→11:21)
[2019-07-10 08:39] VITALS: O2SAT 97
[2019-07-10 08:53] VITALS: BP 97/67; PULSE 85; RESP 18; TEMP 36.2; O2SAT 97
[2019-07-10 09:00] VITALS: RESP 14
[2019-07-10] MEDS: Budesonide/Formoterol 160/4.5 6 GM 60 PUFF INH IH ×2 (11:22→20:00)
[2019-07-10 13:55] VITALS: BP 96/64; PULSE 65
--- NOTE | 2019-07-10 14:17 | NUR.NOTE ---
Nursing Note: Pt insisting all four railings be up on her bed. RN explained CMS policy; pt continued to refuse to allow one rail to be dropped. JOSH cummings.
[2019-07-10] MEDS: Normal Saline Flush 10 ML SYR IVP (16:24)
[2019-07-10] MEDS: Zolpidem 5 MG TAB PO (20:34)
[2019-07-10] MEDS: clonazePAM 1 MG TAB 2 MG PO (20:34)
[2019-07-10 20:38] VITALS: BP 108/65; PULSE 81; RESP 18; TEMP 36.7; O2SAT 100
[2019-07-10] MEDS: Docusate Sodium 100 MG CAP PO (21:28)
[2019-07-10] MEDS: Milk of Magnesia 30 ML CUP PO (21:30)
[2019-07-11] MEDS: Patch Removal 1 EACH TP (02:03)
[2019-07-11] MEDS: oxyCODONE 5 mg/Acetaminophen 325 mg TAB PO ×4 (03:31→20:54)
[2019-07-11] MEDS: Albuterol/Ipratropium 3 ML UPD VIAL UPD (03:37)
[2019-07-11 04:07] VITALS: RESP 1
[2019-07-11] MEDS: Metoprolol 25 MG TAB PO ×2 (06:30→20:55)
[2019-07-11] MEDS: Acetaminophen 325 MG TAB PO ×3 (06:35→15:21)
[2019-07-11] MEDS: Senna TAB 1 TAB PO (09:27)
[2019-07-11] MEDS: Ascorbic Acid 500 MG TAB PO ×2 (09:27→20:45)
[2019-07-11] MEDS: Cyanocobalamin 100 MCG TABLET PO (09:27)
[2019-07-11] MEDS: Sertraline 50 MG TAB PO (09:27)
[2019-07-11] MEDS: Anastrozole 1 MG TAB PO (09:27)
[2019-07-11] MEDS: Cyclobenzaprine 10 MG TAB PO ×2 (09:27→20:45)
[2019-07-11] MEDS: Glucosamine 500 MG CAP PO ×2 (09:27→20:45)
[2019-07-11] MEDS: Lactobacillus Acidophilus CAP 1 CAP PO ×3 (09:27→20:46)
[2019-07-11] MEDS: Pantoprazole 40 MG TABCR PO (09:28)
[2019-07-11] MEDS: Folic Acid 1 MG TAB 2 MG PO (09:28)
[2019-07-11] MEDS: Methylphenidate 10 MG TAB PO ×2 (09:28→13:41)
[2019-07-11] MEDS: Ferrous Sulfate 325 MG TAB PO (09:28)
[2019-07-11] MEDS: Albuterol HFA 8 GM 60 PUFF INH IH ×2 (09:38→20:57)
[2019-07-11] MEDS: Budesonide/Formoterol 160/4.5 6 GM 60 PUFF INH IH ×2 (09:39→20:56)
[2019-07-11 09:41] VITALS: RESP 14
[2019-07-11 09:45] VITALS: RESP 14
[2019-07-11] MEDS: Normal Saline Flush 10 ML SYR IVP (10:14)
[2019-07-11 11:45] VITALS: BP 100/68; PULSE 70; RESP 18; TEMP 36.6; O2SAT 93
[2019-07-11 13:55] VITALS: BP 82/47; PULSE 82
[2019-07-11] MEDS: Zolpidem 5 MG TAB PO (20:44)
[2019-07-11] MEDS: clonazePAM 1 MG TAB 2 MG PO (20:44)
[2019-07-11 21:25] VITALS: BP 94/59; PULSE 78; RESP 19; TEMP 36.7; O2SAT 95
[2019-07-12] MEDS: oxyCODONE 5 mg/Acetaminophen 325 mg TAB PO (03:01)
[2019-07-12] MEDS: Metoprolol 25 MG TAB PO ×3 (06:39→22:13)
[2019-07-12] MEDS: oxyCODONE 5 MG TAB PO ×3 (08:46→19:43)
[2019-07-12] MEDS: Methylphenidate 10 MG TAB PO ×2 (08:46→14:16)
[2019-07-12] MEDS: Folic Acid 1 MG TAB 2 MG PO (08:46)
[2019-07-12] MEDS: Lactobacillus Acidophilus CAP 1 CAP PO ×3 (08:47→19:43)
[2019-07-12] MEDS: Ferrous Sulfate 325 MG TAB PO (08:47)
[2019-07-12] MEDS: Glucosamine 500 MG CAP PO ×2 (08:47→19:42)
[2019-07-12] MEDS: Sertraline 50 MG TAB PO (08:47)
[2019-07-12] MEDS: Anastrozole 1 MG TAB PO (08:47)
[2019-07-12] MEDS: Cyclobenzaprine 10 MG TAB PO ×2 (08:47→19:43)
[2019-07-12] MEDS: Cyanocobalamin 100 MCG TABLET PO (08:47)
[2019-07-12] MEDS: Senna TAB 1 TAB PO (08:47)
[2019-07-12] MEDS: Ascorbic Acid 500 MG TAB PO ×2 (08:47→19:43)
[2019-07-12] MEDS: Pantoprazole 40 MG TABCR PO (08:48)
[2019-07-12] MEDS: Normal Saline Flush 10 ML SYR IVP (08:49)
[2019-07-12] MEDS: Albuterol HFA 8 GM 60 PUFF INH IH ×2 (09:38→19:41)
[2019-07-12] MEDS: Budesonide/Formoterol 160/4.5 6 GM 60 PUFF INH IH ×2 (09:42→19:42)
[2019-07-12] MEDS: Ergocalciferol 50000 UNITS CAP PO (12:08)
[2019-07-12 15:53] VITALS: BP 89/57; PULSE 68; RESP 18; TEMP 36.5; O2SAT 95
[2019-07-12 22:10] VITALS: BP 88/50; PULSE 82; RESP 16; TEMP 36.6; O2SAT 97
[2019-07-12] MEDS: clonazePAM 1 MG TAB 2 MG PO (22:13)
[2019-07-12] MEDS: Zolpidem 5 MG TAB PO (22:13)
[2019-07-13 04:50] VITALS: BP 98/65; PULSE 70; RESP 16; TEMP 36.6; O2SAT 100
[2019-07-13] MEDS: Docusate Sodium 100 MG CAP PO (04:56)
[2019-07-13] MEDS: Metoprolol 25 MG TAB PO ×3 (04:56→20:34)
[2019-07-13] MEDS: oxyCODONE 5 MG TAB PO ×4 (04:57→20:32)
--- NOTE | 2019-07-13 05:27 | NUR.NOTE ---
Nursing Note: Patient frequently calling at this point, ringing call light as soon as nurse or aid walked out of the rooms. Patient is asked prior to nurse leaving and denies any needs. Patient states she is upset about her meds being changed and no longer having tylenol or percocet available to her.
[2019-07-13 07:48] VITALS: BP 95/60; PULSE 79; RESP 18; TEMP 36.9; O2SAT 95
[2019-07-13] MEDS: Glucosamine 500 MG CAP PO ×2 (08:18→20:32)
[2019-07-13] MEDS: Pantoprazole 40 MG TABCR PO (08:18)
[2019-07-13] MEDS: Ferrous Sulfate 325 MG TAB PO (08:18)
[2019-07-13] MEDS: Senna TAB 1 TAB PO (08:18)
[2019-07-13] MEDS: Cyclobenzaprine 10 MG TAB PO ×2 (08:18→20:32)
[2019-07-13] MEDS: Normal Saline Flush 10 ML SYR IVP (08:19)
[2019-07-13] MEDS: Anastrozole 1 MG TAB PO (08:19)
[2019-07-13] MEDS: Folic Acid 1 MG TAB 2 MG PO (08:19)
[2019-07-13] MEDS: Methylphenidate 10 MG TAB PO ×2 (08:19→14:26)
[2019-07-13] MEDS: Lactobacillus Acidophilus CAP 1 CAP PO ×3 (08:19→20:31)
[2019-07-13] MEDS: Cyanocobalamin 100 MCG TABLET PO (08:19)
[2019-07-13] MEDS: Ascorbic Acid 500 MG TAB PO ×2 (08:19→20:32)
[2019-07-13] MEDS: Sertraline 50 MG TAB PO (08:19)
[2019-07-13 12:13] VITALS: RESP 14
--- NOTE | 2019-07-13 15:05 | NUR.NOTE ---
Pt was put on bedpan around 14:00 Solvent Plant Operator asked her if i could take her off at 1440 she refused to get off, LIBRADO Vines had asked her before that and she had refused. at 1500 Both LIBRADO's went in there and she still refused to get off stated I have to get all the pee out END OF NOTE :
--- NOTE | 2019-07-13 15:07 | NUR.NOTE ---
DYER ASSISTANT put patient on the bed elena at approximately 1415. The patient has refused to come off two different times. Patient stated that she is not done peeing and is still currently on it. The assigned nurse is aware. Nursing Note:
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
[2019-07-13] MEDS: Acetaminophen 325 MG TAB 650 MG PO (18:32)
[2019-07-13] MEDS: Milk of Magnesia 30 ML CUP PO (18:32)
--- NOTE | 2019-07-13 18:35 | CMPROGNOTE_ITS ---
- If Service Date Differs Date of service: 07/13/19 Time of Service: 18:35 Care Management Progress Note S/O: Prema was able to meet with a potential AFC home this week. Plan will be for her to go out for a home visit on Friday, MICHAEL to arrange transportation through [facility]. Prema met with today to address her capacity to make decisions related to living situation in the community. Prema does express her wish to live independently however she also smiles at the thought of staying wit h an AF family for supports. No other changes today has provided update to Prema's son Emery who at this time in agreement with the plan. P: Prema is awaiting placement with an AFC home potential agencies to offer support include [facility], [facility], and [facility] services. When Prema is discharged to a AFC home she will need new home health services for nursing, PT and OT to assist in meeting her goals to continue to live in the community.
--- NOTE | 2019-07-13 18:35 | NUR.NOTE ---
Patient had large soft stool today, but requested milk of magnesia this evening. Nursing educated patient about the risk of diarrhea when she has had consistent stools for the past two days. Patient not interested in education, stating to nursing go get it. Nursing administered the milk of magnesia. Nursing Note:
[2019-07-13 20:13] VITALS: BP 90/51; PULSE 78; RESP 17; O2SAT 97
[2019-07-13] MEDS: Budesonide/Formoterol 160/4.5 6 GM 60 PUFF INH IH (20:32)
[2019-07-13] MEDS: Zolpidem 5 MG TAB PO (20:34)
[2019-07-13] MEDS: clonazePAM 1 MG TAB 2 MG PO (20:34)
[2019-07-14] MEDS: oxyCODONE 5 MG TAB PO ×5 (02:24→19:57)
[2019-07-14] MEDS: Lidocaine 5% Patch 1 PATCH TP (04:50)
[2019-07-14] MEDS: Metoprolol 25 MG TAB PO ×3 (06:49→19:59)
[2019-07-14 06:57] VITALS: BP 96/68; PULSE 78
[2019-07-14 08:11] VITALS: BP 95/65; PULSE 80; RESP 18; TEMP 36.8; O2SAT 99
[2019-07-14] MEDS: Lactobacillus Acidophilus CAP 1 CAP PO ×3 (08:48→19:57)
[2019-07-14] MEDS: Glucosamine 500 MG CAP PO ×2 (08:48→19:57)
[2019-07-14] MEDS: Cyanocobalamin 100 MCG TABLET PO (08:49)
[2019-07-14] MEDS: Methylphenidate 10 MG TAB PO ×2 (08:49→14:56)
[2019-07-14] MEDS: Ascorbic Acid 500 MG TAB PO ×2 (08:49→19:57)
[2019-07-14] MEDS: Folic Acid 1 MG TAB 2 MG PO (08:49)
[2019-07-14] MEDS: Senna TAB 1 TAB PO (08:49)
[2019-07-14] MEDS: Anastrozole 1 MG TAB PO (08:49)
[2019-07-14] MEDS: Ferrous Sulfate 325 MG TAB PO (08:49)
[2019-07-14] MEDS: Sertraline 50 MG TAB PO ×2 (08:50→11:57)
[2019-07-14] MEDS: Pantoprazole 40 MG TABCR PO (08:50)
[2019-07-14] MEDS: Cyclobenzaprine 10 MG TAB PO ×2 (08:50→19:57)
[2019-07-14] MEDS: Docusate Sodium 100 MG CAP PO ×2 (09:00→17:16)
[2019-07-14] MEDS: Ergocalciferol 50000 UNITS CAP PO (09:00)
[2019-07-14] MEDS: Budesonide/Formoterol 160/4.5 6 GM 60 PUFF INH IH ×2 (09:06→19:57)
[2019-07-14 10:11] VITALS: RESP 14
[2019-07-14 10:19] LABS: Bilirubin Negative (Negative); Blood Trace-intact (Negative); Clarity Sl Cloudy (Clear); Glucose Negative (Negative); Ketones Negative (Negative); Leukocyte Esterase Large (Negative); Nitrite Positive (Negative); Specific Gravity 1.015 (1.005-1.025); Urobilinogen 0.2 EU/dL (Up TO 0.2); pH 5.5 (5-8)
[2019-07-14 10:31] LABS: WBC >50 HPF (0-5)
[2019-07-14 10:33] LABS: C & S Indicated? Yes
[2019-07-14 14:38] VITALS: BP 94/61; PULSE 81
[2019-07-14] MEDS: Milk of Magnesia 30 ML CUP PO (17:16)
--- NOTE | 2019-07-14 17:45 | NUR.NOTE ---
Nursing Note: Walking into patient room. This RN noted patient pinching skin on right forearm. Asked patient about this. Patient reports: They look like worms. These things on my skin. The worms patient is referring to appear to be dried open skin from the pinching. Right forearm discolored in scattered areas.
[2019-07-14] MEDS: clonazePAM 1 MG TAB 2 MG PO (19:57)
[2019-07-14] MEDS: Zolpidem 5 MG TAB PO (19:57)
[2019-07-14 20:00] VITALS: BP 110/72; PULSE 86; RESP 20; TEMP 37.1; O2SAT 97
[2019-07-14] MEDS: Albuterol HFA 8 GM 60 PUFF INH IH (21:02)
[2019-07-14] MEDS: Nitrofurantoin Macrocrystal 50 MG CAP 100 MG PO (21:52)
[2019-07-15 06:45] VITALS: BP 91/58; PULSE 70; RESP 18; TEMP 36.2; O2SAT 93
[2019-07-15] MEDS: Metoprolol 25 MG TAB PO ×3 (06:51→20:00)
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
[2019-07-15] MEDS: Pantoprazole 40 MG TABCR PO (08:49)
[2019-07-15] MEDS: Sertraline 50 MG TAB 100 MG PO (08:50)
[2019-07-15] MEDS: oxyCODONE 5 MG TAB PO ×2 (08:50→18:54)
[2019-07-15] MEDS: Folic Acid 1 MG TAB 2 MG PO (08:50)
[2019-07-15] MEDS: Lactobacillus Acidophilus CAP 1 CAP PO ×3 (08:50→18:55)
[2019-07-15] MEDS: Ferrous Sulfate 325 MG TAB PO (08:50)
[2019-07-15] MEDS: Glucosamine 500 MG CAP PO ×2 (08:50→18:55)
[2019-07-15] MEDS: MacroBID 100 MG CAP PO ×2 (08:50→18:55)
[2019-07-15] MEDS: Cyclobenzaprine 10 MG TAB PO ×2 (08:50→18:55)
[2019-07-15] MEDS: Senna TAB 1 TAB PO (08:50)
[2019-07-15] MEDS: Cyanocobalamin 100 MCG TABLET PO (08:51)
[2019-07-15] MEDS: Anastrozole 1 MG TAB PO (08:51)
[2019-07-15] MEDS: Methylphenidate 10 MG TAB PO ×2 (08:51→13:23)
[2019-07-15] MEDS: Ascorbic Acid 500 MG TAB PO ×2 (08:53→18:55)
[2019-07-15] MEDS: Milk of Magnesia 30 ML CUP PO (10:45)
[2019-07-15 13:20] VITALS: BP 140/79; PULSE 87; RESP 18; TEMP 36.4; O2SAT 98
--- NOTE | 2019-07-15 16:37 | CMACTNOTE_ITS ---
- If Service Date Differs Date of service: 07/15/19 Time of Service: 16:37 Care Management Activity Note S/O: Prema has been out in her chair during the day today. She has coloring and movies in her room. CM visited with Prema she wishes her family and friends would visit more often. Prema has a phone in her room so that she can communicate often with her friends and family. CM offered activities from the activity cart. Prema met with home provider and is now scheduled for a home visit on 07/19/19, RCT will pick her up at the main entrance at 1345 and return her to [facility] at 1630. A: Prema is a 63 year female admitted to [facility] for ongoing placement issues after an acute stay for pneumonia and IV antibiotics. Prema had a bile drain that was placed and managed by [facility] and is chronic. She was treated for a UTI with oral medications. She has a community physician assistant primary care Tracey through [facility]. P: [facility] has set up a meeting for Friday AFC placement home at 1400 she will leave [facility] at 1345. CM to continue to coordinate placement AFC home.
[2019-07-15] MEDS: Albuterol HFA 8 GM 60 PUFF INH IH (19:58)
[2019-07-15] MEDS: Budesonide/Formoterol 160/4.5 6 GM 60 PUFF INH IH (19:59)
[2019-07-15] MEDS: clonazePAM 1 MG TAB 2 MG PO (20:00)
[2019-07-15] MEDS: Zolpidem 5 MG TAB PO (20:00)
[2019-07-16] VITALS (7 sets, daily range): BP systolic 87–102; BP diastolic 52–64; PULSE 68–83; RESP 14–20; TEMP 36.8–37; O2SAT 97–100
[2019-07-16] MEDS: Metoprolol 25 MG TAB PO ×2 (06:03→13:25)
--- NOTE | 2019-07-16 08:30 | NUR.NOTE ---
Nursing Note: Brought pT in her breakfast. pT stated that she did not want it (her breakfast) right now. Also when asked if she wanted her breakfast left in her room her answer was no.
[2019-07-16] MEDS: oxyCODONE 5 MG TAB PO ×2 (09:07→20:55)
[2019-07-16] MEDS: Ascorbic Acid 500 MG TAB PO ×2 (09:07→20:47)
[2019-07-16] MEDS: Senna TAB 1 TAB PO (09:07)
[2019-07-16] MEDS: Folic Acid 1 MG TAB 2 MG PO (09:07)
[2019-07-16] MEDS: Anastrozole 1 MG TAB PO (09:08)
[2019-07-16] MEDS: Ergocalciferol 50000 UNITS CAP PO (09:08)
[2019-07-16] MEDS: Sertraline 50 MG TAB 100 MG PO (09:08)
[2019-07-16] MEDS: Cyanocobalamin 100 MCG TABLET PO (09:08)
[2019-07-16] MEDS: Ferrous Sulfate 325 MG TAB PO (09:09)
[2019-07-16] MEDS: MacroBID 100 MG CAP PO (09:09)
[2019-07-16] MEDS: Glucosamine 500 MG CAP PO ×2 (09:09→20:47)
[2019-07-16] MEDS: Methylphenidate 10 MG TAB PO ×2 (09:09→13:27)
[2019-07-16] MEDS: Lactobacillus Acidophilus CAP 1 CAP PO ×3 (09:09→20:47)
[2019-07-16] MEDS: Cyclobenzaprine 10 MG TAB PO ×2 (09:09→20:47)
[2019-07-16] MEDS: Pantoprazole 40 MG TABCR PO (09:09)
[2019-07-16] MEDS: Budesonide/Formoterol 160/4.5 6 GM 60 PUFF INH IH ×2 (10:00→20:45)
[2019-07-16] MEDS: Albuterol HFA 8 GM 60 PUFF INH IH ×2 (10:11→20:44)
[2019-07-16] MEDS: Acetaminophen 325 MG TAB 650 MG PO ×2 (10:34→18:23)
[2019-07-16] MEDS: Normal Saline Flush 10 ML SYR IVP (13:25)
[2019-07-16] MEDS: Zolpidem 5 MG TAB PO (20:47)
[2019-07-16] MEDS: clonazePAM 1 MG TAB 2 MG PO (20:47)
[2019-07-16] MEDS: Water,Injection,Sterile 10 ML VIAL IJ (20:56)
[2019-07-16] MEDS: cefTRIAXone 1 GM VIAL IM (20:59)
--- NOTE | 2019-07-16 21:13 | NUR.NOTE ---
Nursing Note: Pt reported of not feeling good. B/P 89/62,TX 77. Rechecked manually was 94/64. Metoprolol as scheduled HS not given. Requested to have O2 at 2L/NC, O2 Sat 100%. Temp 37.' face appears flushy. Medicated with oxycodone 10 mg for pain rated 6. Cefriaxone/Rocephine 1 mg administered as ordered intramuscularly on her left mid gluteus site and tolerated well. Continue to monitor.
[2019-07-17 06:10] VITALS: RESP 14
[2019-07-17 06:19] VITALS: BP 100/66; PULSE 80; O2SAT 97
[2019-07-17] MEDS: Metoprolol 25 MG TAB PO ×2 (06:19→14:50)
[2019-07-17] MEDS: oxyCODONE 5 MG TAB PO ×2 (06:25→19:55)
[2019-07-17] MEDS: Anastrozole 1 MG TAB PO (08:26)
[2019-07-17] MEDS: Methylphenidate 10 MG TAB PO ×2 (08:26→14:50)
[2019-07-17] MEDS: Sertraline 50 MG TAB 100 MG PO (08:26)
[2019-07-17] MEDS: Cyclobenzaprine 10 MG TAB PO ×2 (08:26→19:55)
[2019-07-17] MEDS: Cyanocobalamin 100 MCG TABLET PO (08:26)
[2019-07-17] MEDS: Ascorbic Acid 500 MG TAB PO ×2 (08:26→19:55)
[2019-07-17] MEDS: Pantoprazole 40 MG TABCR PO (08:26)
[2019-07-17] MEDS: Senna TAB 1 TAB PO (08:26)
[2019-07-17] MEDS: Folic Acid 1 MG TAB 2 MG PO (08:27)
[2019-07-17] MEDS: Ferrous Sulfate 325 MG TAB PO (08:27)
[2019-07-17] MEDS: Glucosamine 500 MG CAP PO ×2 (08:27→19:55)
[2019-07-17] MEDS: Lactobacillus Acidophilus CAP 1 CAP PO ×3 (08:27→19:55)
[2019-07-17] MEDS: Albuterol HFA 8 GM 60 PUFF INH IH ×2 (10:03→20:56)
[2019-07-17] MEDS: Acetaminophen 325 MG TAB 650 MG PO ×2 (10:03→18:01)
[2019-07-17] MEDS: Budesonide/Formoterol 160/4.5 6 GM 60 PUFF INH IH ×2 (10:03→19:54)
[2019-07-17] MEDS: cefTRIAXone 1 GM VIAL IM (19:54)
[2019-07-17] MEDS: Zolpidem 5 MG TAB PO (19:56)
[2019-07-17] MEDS: clonazePAM 1 MG TAB 2 MG PO (19:56)
[2019-07-17 20:18] VITALS: BP 89/54; PULSE 64
[2019-07-18] MEDS: Acetaminophen 325 MG TAB 650 MG PO ×3 (02:18→17:29)
[2019-07-18] MEDS: oxyCODONE 5 MG TAB PO ×2 (02:24→22:01)
[2019-07-18] MEDS: Metoprolol 25 MG TAB PO ×3 (07:11→21:17)
[2019-07-18 07:57] VITALS: BP 96/58; PULSE 77; RESP 17; TEMP 36; O2SAT 99
[2019-07-18] MEDS: Ferrous Sulfate 325 MG TAB PO (09:34)
[2019-07-18] MEDS: Anastrozole 1 MG TAB PO (09:34)
[2019-07-18] MEDS: Cyanocobalamin 100 MCG TABLET PO (09:34)
[2019-07-18] MEDS: Methylphenidate 10 MG TAB PO ×2 (09:34→14:14)
[2019-07-18] MEDS: Sertraline 50 MG TAB 100 MG PO (09:34)
[2019-07-18] MEDS: Pantoprazole 40 MG TABCR PO (09:35)
[2019-07-18] MEDS: Lactobacillus Acidophilus CAP 1 CAP PO ×3 (09:35→21:17)
[2019-07-18] MEDS: Ascorbic Acid 500 MG TAB PO ×2 (09:35→21:17)
[2019-07-18] MEDS: Budesonide/Formoterol 160/4.5 6 GM 60 PUFF INH IH ×2 (09:35→21:15)
[2019-07-18] MEDS: Senna TAB 1 TAB PO (09:35)
[2019-07-18] MEDS: Folic Acid 1 MG TAB 2 MG PO (09:35)
[2019-07-18] MEDS: Glucosamine 500 MG CAP PO ×2 (09:35→21:17)
[2019-07-18] MEDS: Cyclobenzaprine 10 MG TAB PO ×2 (09:35→21:17)
[2019-07-18 14:25] VITALS: BP 93/60; PULSE 76
[2019-07-18] MEDS: Loperamide 2 MG CAP PO ×2 (16:54→21:17)
[2019-07-18 19:46] LABS: Bilirubin Negative (Negative); Blood Trace-intact (Negative); Clarity Cloudy (Clear); Glucose Negative (Negative); Ketones Negative (Negative); Leukocyte Esterase Moderate (Negative); Nitrite Negative (Negative); Urobilinogen 0.2 EU/dL (Up TO 0.2); pH 5.5 (5-8)
[2019-07-18 20:12] LABS: Epithelial Cells Rare HPF (Negative); Other Cells Negative (Negative); WBC >50 HPF (0-5)
[2019-07-18 20:13] LABS: Bacteria Moderate HPF (Negative); C & S Indicated? Yes; Casts Negative LPF (Negative); Crystals Negative HPF (Negative); Mucus Negative (Negative)
[2019-07-18 21:10] VITALS: BP 86/51; PULSE 85; RESP 16; TEMP 36.6; O2SAT 95
[2019-07-18] MEDS: Albuterol HFA 8 GM 60 PUFF INH IH (21:15)
[2019-07-18] MEDS: clonazePAM 1 MG TAB 2 MG PO (21:17)
[2019-07-18] MEDS: Zolpidem 5 MG TAB PO (21:17)
[2019-07-19] MEDS: Acetaminophen 325 MG TAB 650 MG PO ×2 (02:18→09:17)
[2019-07-19 05:40] VITALS: BP 86/59; PULSE 74; RESP 16; TEMP 36.3; O2SAT 99
[2019-07-19] MEDS: Metoprolol 25 MG TAB PO ×2 (05:47→13:11)
[2019-07-19] MEDS: Lactobacillus Acidophilus CAP 1 CAP PO ×3 (09:16→20:12)
[2019-07-19] MEDS: Ergocalciferol 50000 UNITS CAP PO (09:16)
[2019-07-19] MEDS: Ascorbic Acid 500 MG TAB PO ×2 (09:17→20:14)
[2019-07-19] MEDS: Methylphenidate 10 MG TAB PO ×2 (09:17→13:11)
[2019-07-19] MEDS: Cyanocobalamin 100 MCG TABLET PO (09:17)
[2019-07-19] MEDS: Sertraline 50 MG TAB 100 MG PO (09:17)
[2019-07-19] MEDS: Anastrozole 1 MG TAB PO (09:17)
[2019-07-19] MEDS: Folic Acid 1 MG TAB 2 MG PO (09:17)
[2019-07-19] MEDS: Glucosamine 500 MG CAP PO ×2 (09:17→20:13)
[2019-07-19] MEDS: Cyclobenzaprine 10 MG TAB PO ×2 (09:17→20:14)
[2019-07-19] MEDS: Loperamide 2 MG CAP PO ×4 (09:18→21:56)
[2019-07-19] MEDS: Ferrous Sulfate 325 MG TAB PO (09:18)
[2019-07-19] MEDS: Pantoprazole 40 MG TABCR PO (09:18)
[2019-07-19] MEDS: Normal Saline Flush 10 ML SYR IVP (12:24)
[2019-07-19] MEDS: oxyCODONE 5 MG TAB PO ×2 (12:24→21:54)
[2019-07-19 20:10] VITALS: BP 84/50; PULSE 77; RESP 18; TEMP 37; O2SAT 94
[2019-07-19] MEDS: Zolpidem 5 MG TAB PO (20:13)
[2019-07-19] MEDS: clonazePAM 1 MG TAB 2 MG PO (20:14)
[2019-07-19] MEDS: Budesonide/Formoterol 160/4.5 6 GM 60 PUFF INH IH (20:14)
[2019-07-19] MEDS: Albuterol HFA 8 GM 60 PUFF INH IH (20:14)
[2019-07-20] MEDS: Acetaminophen 325 MG TAB 650 MG PO ×3 (02:25→17:46)
--- NOTE | 2019-07-20 06:36 | NUR.NOTE ---
Nursing Note: 0707/20: pt very pleasant and friendly to staff at 0300 and now. joking, laughing, and giving compliments. pt seems overall much happier.
[2019-07-20 06:50] VITALS: BP 91/58; PULSE 78; RESP 18; TEMP 36.3; O2SAT 94
[2019-07-20] MEDS: Metoprolol 25 MG TAB PO ×3 (06:54→21:12)
[2019-07-20] MEDS: Lactobacillus Acidophilus CAP 1 CAP PO ×3 (09:29→21:12)
[2019-07-20] MEDS: Pantoprazole 40 MG TABCR PO (09:29)
[2019-07-20] MEDS: oxyCODONE 5 MG TAB PO ×2 (09:29→18:15)
[2019-07-20] MEDS: Ferrous Sulfate 325 MG TAB PO (09:29)
[2019-07-20] MEDS: Cyclobenzaprine 10 MG TAB PO ×2 (09:30→21:12)
[2019-07-20] MEDS: Folic Acid 1 MG TAB 2 MG PO (09:30)
[2019-07-20] MEDS: Glucosamine 500 MG CAP PO ×2 (09:30→21:11)
[2019-07-20] MEDS: Methylphenidate 10 MG TAB PO ×2 (09:30→12:47)
[2019-07-20] MEDS: Ascorbic Acid 500 MG TAB PO ×2 (09:30→21:12)
[2019-07-20] MEDS: Anastrozole 1 MG TAB PO (09:30)
[2019-07-20] MEDS: Sertraline 50 MG TAB 100 MG PO (09:30)
[2019-07-20] MEDS: Loperamide 2 MG CAP PO ×3 (09:31→21:11)
[2019-07-20] MEDS: Cyanocobalamin 100 MCG TABLET PO (09:31)
--- NOTE | 2019-07-20 10:50 | NUR.NOTE ---
Nursing Note: 1045: in pt room to assist to bed elena. pt upset about staff being in her room when she is not present. pt requests that RN place her DVDS in her black bag in the corner of the room because someone has been scratching them and they are damaged, some look like they have had water dumped on them put them in that bag in the corner and you and I will be the only one's who know where they are. RN fulfills pt request, pink tag is twisted as pt requested. bag is left unzipped on far corner per pt request. RN informs Mandie MANCIA RN of situation.
[2019-07-20 11:57] VITALS: RESP 14
[2019-07-20] MEDS: Budesonide/Formoterol 160/4.5 6 GM 60 PUFF INH IH ×2 (11:57→21:15)
[2019-07-20] MEDS: Albuterol HFA 8 GM 60 PUFF INH IH ×2 (11:57→21:10)
[2019-07-20 14:41] VITALS: BP 96/62; PULSE 77; RESP 17; TEMP 37; O2SAT 98
[2019-07-20 19:15] VITALS: RESP 16
[2019-07-20] MEDS: Cefuroxime 250 MG TAB PO (21:11)
[2019-07-20] MEDS: Zolpidem 5 MG TAB PO (21:12)
[2019-07-20] MEDS: clonazePAM 1 MG TAB 2 MG PO (21:12)
[2019-07-20 21:55] VITALS: O2SAT 96
[2019-07-21] MEDS: Acetaminophen 325 MG TAB 650 MG PO ×3 (01:56→17:18)
[2019-07-21] MEDS: oxyCODONE 5 MG TAB PO ×3 (01:57→14:43)
[2019-07-21 02:57] VITALS: RESP 16
[2019-07-21 05:27] VITALS: RESP 14; O2SAT 97
[2019-07-21] MEDS: Metoprolol 25 MG TAB PO ×3 (06:19→20:24)
[2019-07-21 06:20] VITALS: BP 90/56; PULSE 80; RESP 16; O2SAT 98
[2019-07-21] MEDS: Folic Acid 1 MG TAB 2 MG PO (08:40)
[2019-07-21] MEDS: Lactobacillus Acidophilus CAP 1 CAP PO ×3 (08:40→20:17)
[2019-07-21] MEDS: Sertraline 50 MG TAB 100 MG PO (08:41)
[2019-07-21] MEDS: Pantoprazole 40 MG TABCR PO (08:41)
[2019-07-21] MEDS: Glucosamine 500 MG CAP PO ×2 (08:41→20:17)
[2019-07-21] MEDS: Cyclobenzaprine 10 MG TAB PO ×2 (08:41→20:17)
[2019-07-21] MEDS: Loperamide 2 MG CAP PO ×3 (08:41→20:17)
[2019-07-21] MEDS: Ferrous Sulfate 325 MG TAB PO (08:41)
[2019-07-21] MEDS: Methylphenidate 10 MG TAB PO ×2 (08:42→14:24)
[2019-07-21] MEDS: Ascorbic Acid 500 MG TAB PO ×2 (08:42→20:17)
[2019-07-21] MEDS: Anastrozole 1 MG TAB PO (08:42)
[2019-07-21] MEDS: Cyanocobalamin 100 MCG TABLET PO (08:42)
[2019-07-21 09:40] VITALS: RESP 16
[2019-07-21] MEDS: Ergocalciferol 50000 UNITS CAP PO (10:26)
[2019-07-21] MEDS: Albuterol HFA 8 GM 60 PUFF INH IH ×2 (11:23→20:15)
[2019-07-21] MEDS: Budesonide/Formoterol 160/4.5 6 GM 60 PUFF INH IH ×2 (11:25→20:16)
[2019-07-21 14:27] VITALS: BP 89/54; PULSE 79; RESP 16; O2SAT 98
--- NOTE | 2019-07-21 14:37 | NUR.NOTE ---
Went in to wash pt at 10:00am she refused and requested at 13:00, i stated that would be fine and i would be back, went in at 1300 and she refused stated she didn't feel well :
[2019-07-21] MEDS: Cefuroxime 250 MG TAB PO (20:17)
[2019-07-21] MEDS: clonazePAM 1 MG TAB 2 MG PO (20:24)
[2019-07-21] MEDS: Zolpidem 5 MG TAB PO (20:24)
[2019-07-21 21:15] VITALS: RESP 14
[2019-07-22] MEDS: Acetaminophen 325 MG TAB 650 MG PO ×3 (02:21→17:55)
[2019-07-22] MEDS: oxyCODONE 5 MG TAB PO ×4 (02:22→21:48)
[2019-07-22] MEDS: Normal Saline Flush 10 ML SYR IVP (03:22)
[2019-07-22 06:47] VITALS: BP 98/65; PULSE 77
[2019-07-22] MEDS: Metoprolol 25 MG TAB PO ×2 (06:48→21:49)
[2019-07-22 10:30] VITALS: RESP 14
[2019-07-22] MEDS: Cyclobenzaprine 10 MG TAB PO ×2 (10:40→21:48)
[2019-07-22] MEDS: Methylphenidate 10 MG TAB PO ×2 (10:40→13:47)
[2019-07-22] MEDS: Cyanocobalamin 100 MCG TABLET PO (10:40)
[2019-07-22] MEDS: Cefuroxime 250 MG TAB PO ×2 (10:40→21:48)
[2019-07-22] MEDS: Anastrozole 1 MG TAB PO (10:40)
[2019-07-22] MEDS: Glucosamine 500 MG CAP PO ×2 (10:40→21:48)
[2019-07-22] MEDS: Lactobacillus Acidophilus CAP 1 CAP PO ×3 (10:41→21:49)
[2019-07-22] MEDS: Folic Acid 1 MG TAB 2 MG PO (10:41)
[2019-07-22] MEDS: Ferrous Sulfate 325 MG TAB PO (10:41)
[2019-07-22] MEDS: Ascorbic Acid 500 MG TAB PO ×2 (10:41→21:49)
[2019-07-22] MEDS: Sertraline 50 MG TAB 100 MG PO (10:41)
[2019-07-22] MEDS: Pantoprazole 40 MG TABCR PO (10:41)
[2019-07-22] MEDS: Senna TAB 1 TAB PO (10:41)
[2019-07-22] MEDS: Nystatin POWDER 60 GM JAR TP (10:42)
[2019-07-22] MEDS: Budesonide/Formoterol 160/4.5 6 GM 60 PUFF INH IH ×2 (10:46→21:51)
[2019-07-22] MEDS: Loperamide 2 MG CAP PO ×2 (11:09→13:45)
[2019-07-22 13:47] VITALS: BP 81/49; PULSE 63; RESP 16; TEMP 35.9; O2SAT 96
[2019-07-22] MEDS: Mylanta Suspension 30 ML CUP PO (15:44)
--- NOTE | 2019-07-22 16:30 | CMACTNOTE_ITS ---
- If Service Date Differs Date of service: 07/22/19 Time of Service: 16:30 Care Management Activity Note S/O: Prema went for a home visit to see the [facility] home that is available to her on Friday, which went very well. Prema reported that she enjoyed the home and she got along well with the home care provider and her children. She sounds agreeable to go live there in conversation, and she sounds very happy and upbeat when talking about it. She continues to enjoy her outings around town. She was pleasant and engaged in conversation with CM. A: Prema is a 63 year female admitted to [facility] for ongoing placement issues after an acute stay for pneumonia and IV antibiotics. Prema had a bile drain that was [place] and [place] [facility] and is chronic. She was treated for a UTI with oral medications. She has a community youth care specialist Tracey through [facility]. P: [facility] is working with CM to coordinate placement in [facility] home.
[2019-07-22] MEDS: Zolpidem 5 MG TAB PO (21:48)
[2019-07-22] MEDS: clonazePAM 1 MG TAB 2 MG PO (21:48)
[2019-07-22 21:50] VITALS: BP 96/59; PULSE 53; RESP 16; TEMP 36.7; O2SAT 98
[2019-07-22] MEDS: Albuterol HFA 8 GM 60 PUFF INH IH (21:51)
[2019-07-23] MEDS: Acetaminophen 325 MG TAB 650 MG PO ×3 (02:45→18:09)
[2019-07-23] MEDS: Metoprolol 25 MG TAB PO ×3 (06:25→20:27)
[2019-07-23 06:26] VITALS: BP 87/53; PULSE 65
[2019-07-23] MEDS: Cyanocobalamin 100 MCG TABLET PO (09:18)
[2019-07-23] MEDS: Cefuroxime 250 MG TAB PO (09:18)
[2019-07-23] MEDS: Cyclobenzaprine 10 MG TAB PO ×2 (09:18→20:27)
[2019-07-23] MEDS: Sertraline 50 MG TAB 100 MG PO (09:19)
[2019-07-23] MEDS: Folic Acid 1 MG TAB 2 MG PO (09:19)
[2019-07-23] MEDS: Senna TAB 1 TAB PO (09:19)
[2019-07-23] MEDS: Pantoprazole 40 MG TABCR PO (09:20)
[2019-07-23] MEDS: Ascorbic Acid 500 MG TAB PO ×2 (09:20→20:26)
[2019-07-23] MEDS: Ferrous Sulfate 325 MG TAB PO (09:21)
[2019-07-23] MEDS: Anastrozole 1 MG TAB PO (09:21)
[2019-07-23] MEDS: Ergocalciferol 50000 UNITS CAP PO (09:21)
[2019-07-23] MEDS: Loperamide 2 MG CAP PO ×2 (09:21→13:01)
[2019-07-23] MEDS: Glucosamine 500 MG CAP PO ×2 (09:21→20:26)
[2019-07-23] MEDS: Lactobacillus Acidophilus CAP 1 CAP PO ×3 (09:21→20:27)
[2019-07-23] MEDS: Methylphenidate 10 MG TAB PO ×2 (09:22→13:01)
[2019-07-23] MEDS: Budesonide/Formoterol 160/4.5 6 GM 60 PUFF INH IH ×2 (10:57→20:25)
[2019-07-23] MEDS: Albuterol HFA 8 GM 60 PUFF INH IH (10:57)
[2019-07-23 10:58] VITALS: RESP 14
[2019-07-23] MEDS: Normal Saline Flush 10 ML SYR IVP (13:02)
[2019-07-23 13:05] VITALS: BP 97/96; PULSE 70; RESP 18; TEMP 37.1; O2SAT 98
[2019-07-23] MEDS: oxyCODONE 5 MG TAB PO ×3 (13:22→22:45)
--- NOTE | 2019-07-23 13:28 | NUR.NOTE ---
Nursing Note: This patient had her t-tube stopcock taped so tightly to her side that it was leaving an indentation. The patient was upset that this RN needed to remove the tape to flush her drain. The patient insisted that her drain be disconnected before the stopcock. Explained to patient that this would result in the fluid coming out of the tube. Patient continued to insist because she didn't want to use the joslyn clamps to loosen the other side. A blue chux was placed but slipped to the floor, (the patient is sitting up in her chair) and some fluid ran down her side and onto the pillow under her. Drain flushed and screwed back together. Patient insisted that her dressing to the t-tube site be replaced. The drain gauze was completely covered with tegaderms. The tegaderms and the gauze became entangled making it difficult to remove. The drain was tugged on while trying to remove the above. Explained to patient that the area underneath was red and looked as if it could be yeasty. Explained further to patient that the gauze dressing should not be totally covered, occluding it and restricting air flow. Also explained that being dark and moist increases the chance for yeast to grow. Patient refused to allow this RN to replace any tape to the split gauze. When asked patient if we could change her clothing and the pillow the patient told this RN to get out and leave her alone.
--- NOTE | 2019-07-23 13:52 | NUR.NOTE ---
Nursing Note: This RN offered to assist this patient x 2 to change her pants and the pillow case, including before she signed out of the building. Patient refused
--- NOTE | 2019-07-23 15:07 | CHAPLAIN ---
When I visited Prema yesterday, she told me about the visit she made to a potential home care provider's home in [facility]. Prema said she liked the provider and the home, and thought she would like living there. Prema has been using some of our prayer shawl yarn for a project and she asked about more yarn, which I'll bring up to her.
[2019-07-23] MEDS: clonazePAM 1 MG TAB 2 MG PO (20:26)
[2019-07-23] MEDS: Zolpidem 5 MG TAB PO (20:27)
[2019-07-23 20:29] VITALS: BP 94/57; PULSE 76
[2019-07-23 20:30] VITALS: O2SAT 96
[2019-07-23 23:00] VITALS: RESP 14
[2019-07-24] MEDS: Acetaminophen 325 MG TAB 650 MG PO ×3 (00:59→18:27)
[2019-07-24] MEDS: oxyCODONE 5 MG TAB PO ×2 (06:47→20:25)
[2019-07-24] MEDS: Metoprolol 25 MG TAB PO ×2 (06:47→20:25)
[2019-07-24 06:51] VITALS: BP 102/64; PULSE 67
[2019-07-24] MEDS: Anastrozole 1 MG TAB PO (07:53)
[2019-07-24] MEDS: Methylphenidate 10 MG TAB PO ×2 (07:53→13:56)
[2019-07-24] MEDS: Folic Acid 1 MG TAB 2 MG PO (07:53)
[2019-07-24] MEDS: Sertraline 50 MG TAB 100 MG PO (07:54)
[2019-07-24] MEDS: Glucosamine 500 MG CAP PO ×2 (07:55→20:23)
[2019-07-24] MEDS: Lactobacillus Acidophilus CAP 1 CAP PO ×3 (07:55→20:23)
[2019-07-24] MEDS: Cyclobenzaprine 10 MG TAB PO ×2 (07:56→20:24)
[2019-07-24] MEDS: Senna TAB 1 TAB PO (07:56)
[2019-07-24] MEDS: Cyanocobalamin 100 MCG TABLET PO (07:56)
[2019-07-24] MEDS: Ferrous Sulfate 325 MG TAB PO (07:57)
[2019-07-24] MEDS: Pantoprazole 40 MG TABCR PO (07:57)
[2019-07-24] MEDS: Ascorbic Acid 500 MG TAB PO ×2 (07:57→20:24)
[2019-07-24] MEDS: Budesonide/Formoterol 160/4.5 6 GM 60 PUFF INH IH ×2 (08:01→20:51)
[2019-07-24] MEDS: Albuterol HFA 8 GM 60 PUFF INH IH ×2 (08:01→20:52)
[2019-07-24] MEDS: Normal Saline Flush 10 ML SYR IVP (13:57)
[2019-07-24 14:19] VITALS: BP 83/57; PULSE 73; RESP 16; TEMP 37; O2SAT 98
[2019-07-24 20:00] VITALS: RESP 14
[2019-07-24] MEDS: Zolpidem 5 MG TAB PO (20:24)
[2019-07-24] MEDS: clonazePAM 1 MG TAB 2 MG PO (20:25)
[2019-07-25 06:00] VITALS: BP 92/63; PULSE 73; RESP 18; TEMP 36; O2SAT 97
[2019-07-25] MEDS: oxyCODONE 5 MG TAB PO ×3 (06:24→21:04)
[2019-07-25] MEDS: Metoprolol 25 MG TAB PO ×3 (06:25→21:04)
[2019-07-25] MEDS: Ferrous Sulfate 325 MG TAB PO (07:42)
[2019-07-25] MEDS: Pantoprazole 40 MG TABCR PO (07:42)
[2019-07-25] MEDS: Folic Acid 1 MG TAB 2 MG PO (07:42)
[2019-07-25] MEDS: Lactobacillus Acidophilus CAP 1 CAP PO ×3 (07:42→21:04)
[2019-07-25] MEDS: Ascorbic Acid 500 MG TAB PO ×2 (07:43→21:05)
[2019-07-25] MEDS: Cyanocobalamin 100 MCG TABLET PO (07:43)
[2019-07-25] MEDS: Glucosamine 500 MG CAP PO ×2 (07:43→21:04)
[2019-07-25] MEDS: Cyclobenzaprine 10 MG TAB PO ×2 (07:43→21:05)
[2019-07-25] MEDS: Methylphenidate 10 MG TAB PO ×2 (07:43→13:00)
[2019-07-25] MEDS: Sertraline 50 MG TAB 100 MG PO (07:43)
[2019-07-25] MEDS: Anastrozole 1 MG TAB PO (07:43)
[2019-07-25] MEDS: Albuterol HFA 8 GM 60 PUFF INH IH ×2 (08:07→08:09)
[2019-07-25 08:10] VITALS: RESP 14
[2019-07-25] MEDS: Budesonide/Formoterol 160/4.5 6 GM 60 PUFF INH IH ×2 (08:15→21:02)
[2019-07-25] MEDS: Acetaminophen 325 MG TAB 650 MG PO ×2 (09:37→21:04)
[2019-07-25 10:21] VITALS: O2SAT 97
[2019-07-25] MEDS: Loperamide 2 MG CAP PO (13:00)
[2019-07-25 13:04] VITALS: BP 97/62; PULSE 75
[2019-07-25 21:00] VITALS: BP 114/78; PULSE 73; RESP 18; O2SAT 98
[2019-07-25] MEDS: Zolpidem 5 MG TAB PO (21:04)
[2019-07-25] MEDS: clonazePAM 1 MG TAB 2 MG PO (21:05)
[2019-07-26] MEDS: Metoprolol 25 MG TAB PO ×2 (06:30→20:48)
[2019-07-26 06:56] VITALS: BP 102/58; PULSE 69; RESP 18; TEMP 36.6; O2SAT 100
[2019-07-26] MEDS: oxyCODONE 5 MG TAB PO ×3 (07:03→20:48)
[2019-07-26] MEDS: Normal Saline Flush 10 ML SYR IVP (08:27)
[2019-07-26] MEDS: Folic Acid 1 MG TAB 2 MG PO (08:27)
[2019-07-26] MEDS: Sertraline 50 MG TAB 100 MG PO (08:27)
[2019-07-26] MEDS: Lactobacillus Acidophilus CAP 1 CAP PO ×3 (08:28→20:48)
[2019-07-26] MEDS: Anastrozole 1 MG TAB PO (08:28)
[2019-07-26] MEDS: Cyclobenzaprine 10 MG TAB PO ×2 (08:28→20:47)
[2019-07-26] MEDS: Senna TAB 1 TAB PO (08:28)
[2019-07-26] MEDS: Ascorbic Acid 500 MG TAB PO ×2 (08:28→20:48)
[2019-07-26] MEDS: Glucosamine 500 MG CAP PO ×2 (08:28→20:48)
[2019-07-26] MEDS: Cyanocobalamin 100 MCG TABLET PO (08:28)
[2019-07-26] MEDS: Methylphenidate 10 MG TAB PO ×2 (08:28→13:26)
[2019-07-26] MEDS: Ferrous Sulfate 325 MG TAB PO (08:28)
[2019-07-26] MEDS: Pantoprazole 40 MG TABCR PO (08:28)
[2019-07-26] MEDS: Ergocalciferol 50000 UNITS CAP PO (10:34)
[2019-07-26] MEDS: Acetaminophen 325 MG TAB 650 MG PO ×2 (10:35→18:32)
[2019-07-26 13:27] VITALS: BP 84/51; PULSE 50
--- NOTE | 2019-07-26 18:06 | PDOC.CMPRO ---
- If Service Date Differs Date of service: 07/26/19 Time of Service: 18:06 Care Management Progress Note S/O: CM reviewed placement options with Prema she is tearful at the news AFC home is unable to offer placement. She was hopeful after the home visit the home provider would take her. Prema feels that she should be able to return to the community. She is leaving frequently in her wheelchair and visiting with friends and participating in activities. CM has request a team meeting with community partners to assist in housing resources or placement in a AFC home. Prema has highest needs choices for care and could hire people to come into the home. Home health will offer services however she has to be able to transfer herself from bed to chair and chair to bed. She would also need to be able to transfer from the chair to commode, unless she has someone in the home during these hours. Home health is not able to assist with this daily. Prema would receive the most benefit from an assisted living or AFC home however this is not her first choice and she is refusing SNF or LTC facility. CM will complete application for [facility] and [facility] as well as EP management and set up a team meeting for or Friday this week. Prema agrees to the plan. A: Prema is a 63 year female admitted to [facility] for ongoing placement issues after an acute stay for pneumonia and IV antibiotics. Prema had a bile drain that [place] and [place] [facility] and is chronic. She was treated for a UTI with oral medications. She has a community life care planner Tracey through [facility]. P: CM will assist patient in completing housing applications for subsidized housing in addition to looking for AFC placement. CM will plan a team meeting for the end of the week awaiting response anticipate or Friday depending availability.
[2019-07-26] MEDS: Loperamide 2 MG CAP PO (20:44)
[2019-07-26] MEDS: Budesonide/Formoterol 160/4.5 6 GM 60 PUFF INH IH (20:45)
[2019-07-26] MEDS: Albuterol HFA 8 GM 60 PUFF INH IH (20:47)
[2019-07-26] MEDS: Zolpidem 5 MG TAB PO (20:48)
[2019-07-26] MEDS: clonazePAM 1 MG TAB 2 MG PO (20:49)
[2019-07-26 21:14] VITALS: BP 99/66; PULSE 67; RESP 19; TEMP 36.6; O2SAT 96
[2019-07-27] MEDS: oxyCODONE 5 MG TAB PO ×3 (04:05→20:38)
[2019-07-27] MEDS: Metoprolol 25 MG TAB PO ×2 (05:05→16:52)
[2019-07-27] MEDS: Normal Saline Flush 10 ML SYR IVP (09:38)
[2019-07-27] MEDS: Methylphenidate 10 MG TAB PO ×2 (09:39→16:52)
[2019-07-27] MEDS: Ascorbic Acid 500 MG TAB PO ×2 (09:39→20:40)
[2019-07-27] MEDS: Sertraline 50 MG TAB 100 MG PO (09:39)
[2019-07-27] MEDS: Ferrous Sulfate 325 MG TAB PO (09:39)
[2019-07-27] MEDS: Loperamide 2 MG CAP PO ×3 (09:39→20:40)
[2019-07-27] MEDS: Pantoprazole 40 MG TABCR PO (09:40)
[2019-07-27] MEDS: Folic Acid 1 MG TAB 2 MG PO (09:40)
[2019-07-27] MEDS: Lactobacillus Acidophilus CAP 1 CAP PO ×3 (09:40→20:39)
[2019-07-27] MEDS: Acetaminophen 325 MG TAB 650 MG PO ×2 (09:40→16:52)
[2019-07-27] MEDS: Cyanocobalamin 100 MCG TABLET PO (09:41)
[2019-07-27] MEDS: Anastrozole 1 MG TAB PO (09:41)
[2019-07-27] MEDS: Glucosamine 500 MG CAP PO ×2 (09:41→20:38)
[2019-07-27] MEDS: Cyclobenzaprine 10 MG TAB PO ×2 (09:41→20:40)
[2019-07-27 10:04] VITALS: RESP 14
[2019-07-27] MEDS: Albuterol HFA 8 GM 60 PUFF INH IH ×2 (10:06→20:41)
[2019-07-27] MEDS: Budesonide/Formoterol 160/4.5 6 GM 60 PUFF INH IH ×2 (10:07→20:40)
--- NOTE | 2019-07-27 13:35 | NUR.NOTE ---
Nursing Note: During am adl's patient washed everything except her bottom. Patient cleaned and applied cream to her frederick area. Patient put on her yellow brief rolling side to side with no distress. Patient put on her pants and shirt and used the grabber to apply her socks. Then she got her self into her wheelchair with mobile plant operators in room.
[2019-07-27] MEDS: Zolpidem 5 MG TAB PO (20:38)
[2019-07-27] MEDS: clonazePAM 1 MG TAB 2 MG PO (20:40)
[2019-07-27 20:59] VITALS: BP 80/50; PULSE 60
[2019-07-27 21:45] VITALS: RESP 14
[2019-07-28] VITALS (7 sets, daily range): BP systolic 86–105; BP diastolic 55–69; PULSE 73–78; RESP 14–20; TEMP 36.7; O2SAT 98–99
[2019-07-28] MEDS: Acetaminophen 325 MG TAB 650 MG PO ×3 (03:20→17:49)
[2019-07-28] MEDS: Metoprolol 25 MG TAB PO ×3 (07:08→20:18)
[2019-07-28] MEDS: Sertraline 50 MG TAB 100 MG PO (09:33)
[2019-07-28] MEDS: Loperamide 2 MG CAP PO ×3 (09:33→20:20)
[2019-07-28] MEDS: Ferrous Sulfate 325 MG TAB PO (09:34)
[2019-07-28] MEDS: Folic Acid 1 MG TAB 2 MG PO (09:35)
[2019-07-28] MEDS: Pantoprazole 40 MG TABCR PO (09:35)
[2019-07-28] MEDS: Glucosamine 500 MG CAP PO ×2 (09:36→20:20)
[2019-07-28] MEDS: Ergocalciferol 50000 UNITS CAP PO (09:36)
[2019-07-28] MEDS: Lactobacillus Acidophilus CAP 1 CAP PO ×3 (09:36→20:19)
[2019-07-28] MEDS: Cyclobenzaprine 10 MG TAB PO ×2 (09:36→20:20)
[2019-07-28] MEDS: Senna TAB 1 TAB PO (09:36)
[2019-07-28] MEDS: oxyCODONE 5 MG TAB PO ×2 (09:37→20:19)
[2019-07-28] MEDS: Anastrozole 1 MG TAB PO (09:37)
[2019-07-28] MEDS: Ascorbic Acid 500 MG TAB PO ×2 (09:37→20:21)
[2019-07-28] MEDS: Albuterol HFA 8 GM 60 PUFF INH IH (09:37)
[2019-07-28] MEDS: Budesonide/Formoterol 160/4.5 6 GM 60 PUFF INH IH ×2 (09:37→20:21)
[2019-07-28] MEDS: Cyanocobalamin 100 MCG TABLET PO (09:37)
[2019-07-28] MEDS: Methylphenidate 10 MG TAB PO ×2 (09:38→13:54)
[2019-07-28] MEDS: Normal Saline Flush 10 ML SYR IVP (13:54)
[2019-07-28] MEDS: clonazePAM 1 MG TAB 2 MG PO (20:20)
[2019-07-28] MEDS: Zolpidem 5 MG TAB PO (20:20)
[2019-07-29] MEDS: Acetaminophen 325 MG TAB 650 MG PO ×3 (00:32→17:49)
[2019-07-29] MEDS: oxyCODONE 5 MG TAB PO ×3 (07:01→22:04)
[2019-07-29] MEDS: Metoprolol 25 MG TAB PO ×3 (07:01→20:01)
[2019-07-29 08:01] VITALS: RESP 16
[2019-07-29] MEDS: Loperamide 2 MG CAP PO ×3 (08:52→20:01)
[2019-07-29] MEDS: Glucosamine 500 MG CAP PO ×2 (08:52→20:01)
[2019-07-29] MEDS: Cyanocobalamin 100 MCG TABLET PO (08:53)
[2019-07-29] MEDS: Sertraline 50 MG TAB 100 MG PO (08:53)
[2019-07-29] MEDS: Folic Acid 1 MG TAB 2 MG PO (08:53)
[2019-07-29] MEDS: Methylphenidate 10 MG TAB PO ×2 (08:53→13:43)
[2019-07-29] MEDS: Ferrous Sulfate 325 MG TAB PO (08:53)
[2019-07-29] MEDS: Pantoprazole 40 MG TABCR PO (08:53)
[2019-07-29] MEDS: Anastrozole 1 MG TAB PO (08:53)
[2019-07-29] MEDS: Ascorbic Acid 500 MG TAB PO ×2 (08:53→20:02)
[2019-07-29] MEDS: Senna TAB 1 TAB PO (08:53)
[2019-07-29] MEDS: Cyclobenzaprine 10 MG TAB PO ×2 (08:53→20:02)
[2019-07-29] MEDS: Budesonide/Formoterol 160/4.5 6 GM 60 PUFF INH IH ×2 (08:54→20:02)
[2019-07-29] MEDS: Nystatin POWDER 60 GM JAR TP (08:57)
--- NOTE | 2019-07-29 13:24 | NUR.NOTE ---
Nursing Note: Patient needed min assist with am care. Patient washed upper and lower half independently. Hostel Manager assisted with buttocks.Patient dressed self.
--- NOTE | 2019-07-29 13:41 | NUR.NOTE ---
Nursing Note: Patient transfer to bed side commode independently with shipsmith and nurse in room. Patient wiped her frederick area and buttocks and pulled her pants up. Patient transfer back to wheelchair independently with shipsmith in room.
[2019-07-29] MEDS: Lactobacillus Acidophilus CAP 1 CAP PO ×2 (13:43→20:02)
--- NOTE | 2019-07-29 16:18 | PDOC.CMACT ---
- If Service Date Differs Date of service: 07/29/19 Time of Service: 16:18 Care Management Activity Note S/O: Perma would like to live independently in the community. Per nursing, she has been working on being more independent with her ADL's and yesterday managed all of them on her own. She is motivated to work hard at this as she does not want to live at a SNF or LTC facility. CM is helping complete application for housing through [facility]. CM is also setting up a team meeting for later this week in order to go over options with community partners. A: Prema is a 63 year female admitted to [facility] for ongoing placement issues after an acute stay for pneumonia and IV antibiotics. Prema had a bile drain that was placed and [place] [facility] and is chronic. She was treated for a UTI with oral medications. She has a community director of managed care Tracey through [facility]. P: CM will assist patient in completing housing applications for subsidized housing in addition to looking for AFC placement. CM will plan a team meeting for the end of the week awaiting response anticipate Friday depending availability.
[2019-07-29 20:00] VITALS: BP 92/57; PULSE 74; RESP 18; TEMP 37.5; O2SAT 94
[2019-07-29] MEDS: Zolpidem 5 MG TAB PO (20:01)
[2019-07-29] MEDS: clonazePAM 1 MG TAB 2 MG PO (20:01)
[2019-07-29] MEDS: Albuterol HFA 8 GM 60 PUFF INH IH (20:02)
--- NOTE | 2019-07-30 04:00 | NUR.NOTE ---
Nursing Note:07/29/19 pt cleaned/organized room from 20:00-22:00. pt wants to prove she can be independent. room looks great and pt is optimistic.
[2019-07-30] MEDS: oxyCODONE 5 MG TAB PO ×3 (04:10→23:17)
[2019-07-30 06:20] VITALS: BP 91/58; PULSE 73; RESP 18; TEMP 36.7; O2SAT 99
[2019-07-30] MEDS: Metoprolol 25 MG TAB PO ×3 (06:20→22:38)
[2019-07-30] MEDS: Budesonide/Formoterol 160/4.5 6 GM 60 PUFF INH IH ×2 (08:59→22:38)
[2019-07-30] MEDS: Albuterol HFA 8 GM 60 PUFF INH IH (08:59)
[2019-07-30] MEDS: Loperamide 2 MG CAP PO ×3 (10:46→22:38)
[2019-07-30] MEDS: Anastrozole 1 MG TAB PO (10:47)
[2019-07-30] MEDS: Acetaminophen 325 MG TAB 650 MG PO ×2 (10:47→17:36)
[2019-07-30] MEDS: Methylphenidate 10 MG TAB PO ×2 (10:47→13:58)
[2019-07-30] MEDS: Ergocalciferol 50000 UNITS CAP PO (10:47)
[2019-07-30] MEDS: Glucosamine 500 MG CAP PO ×2 (10:47→19:57)
[2019-07-30] MEDS: Cyanocobalamin 100 MCG TABLET PO (10:47)
[2019-07-30] MEDS: Pantoprazole 40 MG TABCR PO (10:48)
[2019-07-30] MEDS: Ferrous Sulfate 325 MG TAB PO (10:48)
[2019-07-30] MEDS: Lactobacillus Acidophilus CAP 1 CAP PO ×3 (10:48→19:57)
[2019-07-30] MEDS: Ascorbic Acid 500 MG TAB PO ×2 (10:48→19:57)
[2019-07-30] MEDS: Senna TAB 1 TAB PO (10:48)
[2019-07-30] MEDS: Cyclobenzaprine 10 MG TAB PO ×2 (10:48→19:57)
[2019-07-30] MEDS: Folic Acid 1 MG TAB 2 MG PO (10:48)
[2019-07-30] MEDS: Sertraline 50 MG TAB 100 MG PO (10:48)
[2019-07-30] MEDS: Normal Saline Flush 10 ML SYR IVP (13:57)
--- NOTE | 2019-07-30 17:18 | CMPROGNOTE_ITS ---
- If Service Date Differs Date of service: 07/30/19 Time of Service: 17:18 Care Management Progress Note S/O: Team meeting to discuss goals of returning to the community with supports. Present at the team meeting: Prema, her son Emery, [facility], Community connections, Choices for care, [facility], [place], Home Health, and Care Management. Prema is advocating for herself that she would like to live independently according to documentation she is able to get to the commode and in and out of her chair independently. She is able to bathe herself and change her briefs on her own. Community supports concerns: Prema has shown independence in the past and then became more dependent on community supports which have not been able to meet her needs. Prema has been in charge of hiring her own supports with the assistance of her friend Ana in the past however she is willing to allow [facility] to act as her agent and contract with home health to provide the supports she needs. Prema will winning to receive help in the home as often as she can and to try Adult Day Services at [place] if she is able to return to independent living. Her two choices for housing are [place] and [facility]. She is asking that she stay in [place] as it is an area she knows and has supports. CM did review the possibility of continuing to search for [facility] homes Prema will allow for continue identification of the homes however she will not agree to be discharged to one at this time. Action items from the meeting - [facility] will follow up with danielle aguilar to identify if she still has an active application and where she is on the list. [facility] will also contact the storage where Prema's belongings are and make sure the storage has been paid. [facility] agrees to be the healthcare corporate account director for Prema's choices for care supports and contract with [facility] once she is discharged back into the community. CM - Will resend referrals to [facility] placement agencies including [facility] and [facility] for potential placement options. P: Prema is eligible for Money follows the person through highest needs choices for care and would have access to adult family intermediate or private care in her own home. CM will continue to provide support to the patient in identifying a safe discharge plan.
[2019-07-30] MEDS: Zolpidem 5 MG TAB PO (20:03)
[2019-07-30] MEDS: clonazePAM 1 MG TAB 2 MG PO (20:03)
[2019-07-30 22:35] VITALS: BP 96/78; PULSE 92; RESP 18; O2SAT 94
[2019-07-31] MEDS: Acetaminophen 325 MG TAB 650 MG PO ×3 (03:06→17:34)
[2019-07-31] MEDS: Metoprolol 25 MG TAB PO ×3 (06:48→22:06)
[2019-07-31 06:58] VITALS: BP 94/59; PULSE 85
[2019-07-31] MEDS: Anastrozole 1 MG TAB PO (09:25)
[2019-07-31] MEDS: Cyanocobalamin 100 MCG TABLET PO (09:25)
[2019-07-31] MEDS: Sertraline 50 MG TAB 100 MG PO (09:26)
[2019-07-31] MEDS: Glucosamine 500 MG CAP PO ×2 (09:26→20:51)
[2019-07-31] MEDS: Ascorbic Acid 500 MG TAB PO ×2 (09:26→20:51)
[2019-07-31] MEDS: Cyclobenzaprine 10 MG TAB PO ×2 (09:26→20:51)
[2019-07-31] MEDS: Ferrous Sulfate 325 MG TAB PO (09:27)
[2019-07-31] MEDS: Methylphenidate 10 MG TAB PO ×2 (09:27→14:02)
[2019-07-31] MEDS: Senna TAB 1 TAB PO (09:27)
[2019-07-31] MEDS: Folic Acid 1 MG TAB 2 MG PO (09:27)
[2019-07-31] MEDS: Lactobacillus Acidophilus CAP 1 CAP PO ×3 (09:27→20:51)
[2019-07-31] MEDS: Pantoprazole 40 MG TABCR PO (09:27)
[2019-07-31] MEDS: Loperamide 2 MG CAP PO ×3 (09:27→20:51)
[2019-07-31 14:00] VITALS: BP 88/56; PULSE 74; RESP 14; O2SAT 97
[2019-07-31] MEDS: oxyCODONE 5 MG TAB PO (14:02)
[2019-07-31] MEDS: Budesonide/Formoterol 160/4.5 6 GM 60 PUFF INH IH ×2 (15:01→22:06)
[2019-07-31] MEDS: Albuterol HFA 8 GM 60 PUFF INH IH ×2 (15:08→22:45)
--- NOTE | 2019-07-31 16:56 | NUR.NOTE ---
Nursing Note: Patient participating in self-care activities. Patient washed up, cleaned room, organized it and got into wheelchair with little to no assist.
[2019-07-31] MEDS: Normal Saline Flush 10 ML SYR IVP (17:35)
[2019-07-31] MEDS: Zolpidem 5 MG TAB PO (20:51)
[2019-07-31] MEDS: clonazePAM 1 MG TAB 2 MG PO (20:51)
[2019-07-31 22:45] VITALS: BP 103/68; PULSE 76; RESP 18; O2SAT 94
[2019-08-01] MEDS: oxyCODONE 5 MG TAB PO ×3 (02:01→22:29)
[2019-08-01] MEDS: Acetaminophen 325 MG TAB 650 MG PO ×3 (02:01→18:13)
[2019-08-01] MEDS: Metoprolol 25 MG TAB PO ×3 (06:09→22:26)
[2019-08-01 06:15] VITALS: BP 91/52; PULSE 69; RESP 18; O2SAT 98
[2019-08-01] MEDS: Albuterol HFA 8 GM 60 PUFF INH IH ×2 (09:41→19:30)
[2019-08-01] MEDS: Budesonide/Formoterol 160/4.5 6 GM 60 PUFF INH IH ×2 (09:41→19:31)
[2019-08-01] MEDS: Glucosamine 500 MG CAP PO ×2 (09:41→19:31)
[2019-08-01] MEDS: Lactobacillus Acidophilus CAP 1 CAP PO ×3 (09:42→19:31)
[2019-08-01] MEDS: Sertraline 50 MG TAB 100 MG PO (09:42)
[2019-08-01] MEDS: Folic Acid 1 MG TAB 2 MG PO (09:42)
[2019-08-01] MEDS: Loperamide 2 MG CAP PO ×3 (09:42→19:30)
[2019-08-01] MEDS: Pantoprazole 40 MG TABCR PO (09:42)
[2019-08-01] MEDS: Cyclobenzaprine 10 MG TAB PO ×2 (09:42→19:31)
[2019-08-01] MEDS: Ascorbic Acid 500 MG TAB PO ×2 (09:42→19:31)
[2019-08-01] MEDS: Ferrous Sulfate 325 MG TAB PO (09:42)
[2019-08-01] MEDS: Anastrozole 1 MG TAB PO (09:43)
[2019-08-01] MEDS: Senna TAB 1 TAB PO (09:43)
[2019-08-01] MEDS: Cyanocobalamin 100 MCG TABLET PO (09:43)
[2019-08-01] MEDS: Methylphenidate 10 MG TAB PO ×2 (09:43→14:06)
[2019-08-01 14:00] VITALS: BP 94/61; PULSE 73; O2SAT 93
--- NOTE | 2019-08-01 15:39 | NUR.NOTE ---
Nursing Note: Patient participating in self care activities. Washed self up, got dressed, took bedsheets off, cleaned room and got herself in her chair.
[2019-08-01] MEDS: clonazePAM 1 MG TAB 2 MG PO (22:26)
[2019-08-01] MEDS: Zolpidem 5 MG TAB PO (22:26)
[2019-08-01 22:57] VITALS: BP 105/62; RESP 18; TEMP 36.5; O2SAT 95
[2019-08-01 22:58] VITALS: O2SAT 95
[2019-08-02] MEDS: Acetaminophen 325 MG TAB 650 MG PO ×3 (01:49→17:46)
[2019-08-02] MEDS: Metoprolol 25 MG TAB PO ×3 (06:11→20:38)
[2019-08-02 06:12] VITALS: BP 95/59; PULSE 55; RESP 16; O2SAT 98
[2019-08-02] MEDS: Cyanocobalamin 100 MCG TABLET PO (09:40)
[2019-08-02] MEDS: Anastrozole 1 MG TAB PO (09:40)
[2019-08-02] MEDS: Ergocalciferol 50000 UNITS CAP PO (09:40)
[2019-08-02] MEDS: Pantoprazole 40 MG TABCR PO (09:40)
[2019-08-02] MEDS: Lactobacillus Acidophilus CAP 1 CAP PO ×3 (09:40→20:36)
[2019-08-02] MEDS: oxyCODONE 5 MG TAB PO ×3 (09:40→20:36)
[2019-08-02] MEDS: Glucosamine 500 MG CAP PO ×2 (09:40→20:36)
[2019-08-02] MEDS: Cyclobenzaprine 10 MG TAB PO ×2 (09:40→20:36)
[2019-08-02] MEDS: Folic Acid 1 MG TAB 2 MG PO (09:40)
[2019-08-02] MEDS: Ascorbic Acid 500 MG TAB PO ×2 (09:41→20:36)
[2019-08-02] MEDS: Loperamide 2 MG CAP PO ×3 (09:41→20:36)
[2019-08-02] MEDS: Methylphenidate 10 MG TAB PO ×2 (09:41→13:55)
[2019-08-02] MEDS: Ferrous Sulfate 325 MG TAB PO (09:41)
[2019-08-02 10:00] VITALS: RESP 14; O2SAT 94
[2019-08-02] MEDS: Albuterol HFA 8 GM 60 PUFF INH IH ×2 (10:09→20:27)
[2019-08-02] MEDS: Budesonide/Formoterol 160/4.5 6 GM 60 PUFF INH IH ×2 (10:10→20:28)
[2019-08-02] MEDS: Sertraline 50 MG TAB 100 MG PO (10:12)
[2019-08-02 13:52] VITALS: BP 95/62; PULSE 94; RESP 16; O2SAT 92
[2019-08-02 19:22] VITALS: BP 94/57; PULSE 74; RESP 20; TEMP 36.6; O2SAT 97
[2019-08-02] MEDS: Zolpidem 5 MG TAB PO (20:38)
[2019-08-02] MEDS: clonazePAM 1 MG TAB 2 MG PO (20:38)
--- NOTE | 2019-08-03 00:51 | NUR.NOTE ---
Nursing Note: B/P 90/54 HR 84 at HS, pt stated that this is her baseline. Requested to give metoprolol scheduled at 2200 hrs. and given at 2035 hrs. Continue to attends needs while on bed,
[2019-08-03] MEDS: Acetaminophen 325 MG TAB 650 MG PO ×3 (01:22→18:17)
[2019-08-03] MEDS: oxyCODONE 5 MG TAB PO ×4 (01:51→22:32)
[2019-08-03] MEDS: Metoprolol 25 MG TAB PO ×3 (05:35→21:27)
[2019-08-03 05:40] VITALS: BP 93/59; PULSE 72; RESP 17; O2SAT 96
[2019-08-03] MEDS: Lactobacillus Acidophilus CAP 1 CAP PO ×3 (08:41→21:27)
[2019-08-03] MEDS: Anastrozole 1 MG TAB PO (08:41)
[2019-08-03] MEDS: Cyanocobalamin 100 MCG TABLET PO (08:42)
[2019-08-03] MEDS: Ferrous Sulfate 325 MG TAB PO (08:42)
[2019-08-03] MEDS: Folic Acid 1 MG TAB 2 MG PO (08:42)
[2019-08-03] MEDS: Sertraline 50 MG TAB 100 MG PO (08:42)
[2019-08-03] MEDS: Ascorbic Acid 500 MG TAB PO ×2 (08:42→21:27)
[2019-08-03] MEDS: Pantoprazole 40 MG TABCR PO (08:42)
[2019-08-03] MEDS: Cyclobenzaprine 10 MG TAB PO ×2 (08:42→21:27)
[2019-08-03] MEDS: Methylphenidate 10 MG TAB PO ×2 (08:42→13:34)
[2019-08-03] MEDS: Glucosamine 500 MG CAP PO ×2 (08:42→21:27)
[2019-08-03] MEDS: Loperamide 2 MG CAP PO ×3 (08:44→21:27)
[2019-08-03 09:00] VITALS: RESP 14
[2019-08-03 10:25] VITALS: RESP 14
[2019-08-03] MEDS: Normal Saline Flush 10 ML SYR IVP (13:34)
[2019-08-03 13:36] VITALS: BP 92/58; PULSE 72; RESP 16; O2SAT 99
[2019-08-03] MEDS: clonazePAM 1 MG TAB 2 MG PO (21:27)
[2019-08-03] MEDS: Zolpidem 5 MG TAB PO (21:27)
[2019-08-03] MEDS: Budesonide/Formoterol 160/4.5 6 GM 60 PUFF INH IH (21:28)
[2019-08-03 21:34] VITALS: BP 103/69; PULSE 75
[2019-08-03] MEDS: Albuterol HFA 8 GM 60 PUFF INH IH (21:36)
[2019-08-04] MEDS: Acetaminophen 325 MG TAB 650 MG PO ×3 (02:42→18:00)
[2019-08-04] MEDS: oxyCODONE 5 MG TAB PO ×5 (02:54→22:43)
[2019-08-04 06:50] VITALS: BP 86/52; PULSE 74
[2019-08-04] MEDS: Metoprolol 25 MG TAB PO ×3 (06:55→22:34)
[2019-08-04 07:20] VITALS: BP 96/62; PULSE 69; RESP 16; TEMP 37; O2SAT 99
[2019-08-04 09:00] VITALS: RESP 14
[2019-08-04] MEDS: Folic Acid 1 MG TAB 2 MG PO (09:13)
[2019-08-04] MEDS: Senna TAB 1 TAB PO (09:13)
[2019-08-04] MEDS: Glucosamine 500 MG CAP PO ×2 (09:14→22:33)
[2019-08-04] MEDS: Ferrous Sulfate 325 MG TAB PO (09:14)
[2019-08-04] MEDS: Pantoprazole 40 MG TABCR PO (09:14)
[2019-08-04] MEDS: Loperamide 2 MG CAP PO ×2 (09:15→13:27)
[2019-08-04] MEDS: Sertraline 50 MG TAB 150 MG PO (09:15)
[2019-08-04] MEDS: Methylphenidate 10 MG TAB PO ×2 (09:16→13:27)
[2019-08-04] MEDS: Anastrozole 1 MG TAB PO (09:17)
[2019-08-04] MEDS: Ergocalciferol 50000 UNITS CAP PO (09:17)
[2019-08-04] MEDS: Cyanocobalamin 100 MCG TABLET PO (09:17)
[2019-08-04] MEDS: Cyclobenzaprine 10 MG TAB PO ×2 (09:17→22:33)
[2019-08-04] MEDS: Ascorbic Acid 500 MG TAB PO ×2 (09:18→22:33)
[2019-08-04] MEDS: Lactobacillus Acidophilus CAP 1 CAP PO ×3 (09:19→22:33)
[2019-08-04] MEDS: Albuterol HFA 8 GM 60 PUFF INH IH ×2 (11:09→22:43)
[2019-08-04] MEDS: Budesonide/Formoterol 160/4.5 6 GM 60 PUFF INH IH ×2 (11:57→22:43)
[2019-08-04 13:26] VITALS: BP 93/56; PULSE 68
[2019-08-04] MEDS: clonazePAM 1 MG TAB 2 MG PO (22:33)
[2019-08-04] MEDS: Zolpidem 5 MG TAB PO (22:33)
[2019-08-04 23:22] VITALS: BP 93/63; PULSE 77; RESP 17; TEMP 36.7; O2SAT 95
[2019-08-05 00:02] VITALS: RESP 14
[2019-08-05] MEDS: Acetaminophen 325 MG TAB 650 MG PO ×3 (04:55→17:06)
[2019-08-05] MEDS: oxyCODONE 5 MG TAB PO ×3 (04:56→21:28)
[2019-08-05] MEDS: Metoprolol 25 MG TAB PO ×3 (06:40→21:29)
[2019-08-05] MEDS: Budesonide/Formoterol 160/4.5 6 GM 60 PUFF INH IH ×2 (08:35→21:27)
[2019-08-05] MEDS: Albuterol HFA 8 GM 60 PUFF INH IH ×2 (08:35→21:27)
[2019-08-05] MEDS: Glucosamine 500 MG CAP PO ×2 (09:12→21:29)
[2019-08-05] MEDS: Sertraline 50 MG TAB 150 MG PO (09:12)
[2019-08-05] MEDS: Pantoprazole 40 MG TABCR PO (09:13)
[2019-08-05] MEDS: Lactobacillus Acidophilus CAP 1 CAP PO ×3 (09:13→21:27)
[2019-08-05] MEDS: Anastrozole 1 MG TAB PO (09:13)
[2019-08-05] MEDS: Cyanocobalamin 100 MCG TABLET PO (09:13)
[2019-08-05] MEDS: Normal Saline Flush 10 ML SYR IVP (09:14)
[2019-08-05] MEDS: Folic Acid 1 MG TAB 2 MG PO (09:14)
[2019-08-05] MEDS: Ferrous Sulfate 325 MG TAB PO (09:14)
[2019-08-05] MEDS: Ascorbic Acid 500 MG TAB PO ×2 (09:14→21:29)
[2019-08-05] MEDS: Cyclobenzaprine 10 MG TAB PO ×2 (09:14→21:29)
[2019-08-05] MEDS: Methylphenidate 10 MG TAB PO ×2 (09:14→13:34)
[2019-08-05] MEDS: Senna TAB 1 TAB PO (09:14)
[2019-08-05 13:30] VITALS: BP 91/56; PULSE 86
--- NOTE | 2019-08-05 17:17 | W.PM.PROGNOT ---
Date of Service Date of service: 08/05/19 Time of Service: 17:18 Assessment and Plan Assessment and plan (1) Depression: Status: Chronic Assessment and plan: Her sertraline was increased from 100 mg daily to 150 mg daily based on the recommendation from Dr. Rojas. She reports feeling well and looking forward to independent living. Continue sertraline at current dose. (2) Chronic back pain: Status: Chronic Assessment and plan: Continue oxycodone for pain as needed. (3) Paroxysmal atrial fibrillation: Status: Chronic Assessment and plan: Rate controlled with metoprolol. Continue beta-trae. (4) Hypotension: Status: Resolved Assessment and plan: Chronic. At baseline 90s over 50s. (5) Discharge planning issues: Status: Acute Assessment and plan: She is a DNI. Care management is working on a safe discharge plan for her with area agencies. The plan will be for her to be discharged to an independent living situation if she is safe. This case was discussed with Dr. Charles who is in agreement. Subjective Subjective Interval history since last seen: Prema remains on swing bed to status while awaiting a permanent housing situation. The goal at this point is for her to be independent enough to live alone. Care management is working with area agencies on securing housing for her. She denies any complaints today. Her sertraline was increased to 150 mg daily yesterday. She denies shortness of breath, coughing, wheezing, chest pain/pressure, palpitations, abdominal pain, nausea, vomiting or diarrhea. She denies having a bowel movement today. She bumped her arm on her chair and sustained a skin tear on her right forearm, she has a dressing over it. She is active in her battery-powered wheelchair. She is looking forward to independent living. Exam Narrative Exam Narrative: General: 63-year-old female, sitting up in her battery powered wheelchair, reclined, in no acute distress. Alert and oriented, pleasant and cooperative. Answers questions appropriately. HEENT: Normocephalic, atraumatic, mucous membranes moist. Neck: Supple, no JVD. Cardiovascular: Heart has regular rate and rhythm, no murmur appreciated, non-tachycardic. Respiratory: Respirations even and unlabored, lungs clear bilaterally. GI: Normal active bowel sounds, abdomen soft, nontender on palpation, no masses appreciated. Extremities: Bilateral lower extremity edema, teds on. Objective Objective Clinical Data: Vital Signs Temperature 36.7 C 08/04/19 23:22 Temperature Source Skin 08/04/19 23:22 Pulse 86 08/05/19 13:30 Pulse Rhythm Regular 08/05/19 15:45 Respiratory Rate 17 08/04/19 23:22 Respiratory Effort 08/05/19 15:45 Respiratory Depth Shallow 08/05/19 15:45 Respiratory Pattern Normal 08/05/19 15:45 Blood Pressure 91/56 L 08/05/19 13:30 Pulse Oximetry 95 08/04/19 23:22 Oxygen Delivery Method Room Air 08/04/19 23:22 Oxygen Flow Rate 0 08/04/19 23:22 Fraction of Inspired Oxygen (FIO2) 21 08/05/19 00:02 Pain Level 6 08/05/19 17:06 Comment 08/04/19 06:50 Intake & Output 08/04/19 08/05/19 08/05/19 23:59 11:59 23:59 Intake Total 935 / 1560 5 / 5 Output Total 800 / 1150 Balance 135 / 410 5 / 5 Intake: Oral 930 / 1380 Injectate 5 / 180 5 / 5 Right Abdomen 5 / 180 5 / 5 Output: Drainage 300 / 300 Right Abdomen 300 / 300 Urine 500 / 850 Other: Urine Color Yellow Yellow Urine Appearance Clear Clear Clear Urine Odor Normal Voiding Methods Bedside Commode Bedpan Laboratory Results WBC 7.02 k/cumm (4.4-10.8) 07/07/19 06:45 RBC 3.70 m/cumm (4.00-5.20) L 07/07/19 06:45 Hgb 12.2 g/dL (12.0-15.5) 07/07/19 06:45 Hct 39.8 % (36.0-46.0) 07/07/19 06:45 MCV 107.6 fL (80-95) H 07/07/19 06:45 MCH 33.0 pg (27.0-33.0) 07/07/19 06:45 MCHC 30.7 g/dL (32.0-36.0) L 07/07/19 06:45 RDW 13.8 % (11.7-14.6) 07/07/19 06:45 Plt Count 184 x1000/uL (130-400) 07/07/19 06:45 MPV 10.7 fL (8.0-11.0) 07/07/19 06:45 Immature Gran % 0.1 07/07/19 06:45 Neutrophils % 73.7 07/07/19 06:45 Lymphocytes % 15.1 07/07/19 06:45 Monocytes % 6.4 07/07/19 06:45 Eosinophils % 4.3 07/07/19 06:45 Basophils % 0.4 07/07/19 06:45 Absolute Neutrophils 5.17 k/cumm (1.2-6.7) 07/07/19 06:45 Absolute Lymphocytes 1.06 k/cumm (1.2-3.4) L 07/07/19 06:45 Absolute Monocytes 0.45 k/cumm (0.11-0.7) 07/07/19 06:45 Absolute Eosinophils 0.30 k/cumm (0.0-0.7) 07/07/19 06:45 Absolute Basophils 0.03 k/cumm (0.0-0.2) 07/07/19 06:45 Sodium 138 mmol/L (136-145) 07/07/19 06:45 Potassium 4.2 mmol/L (3.5-5.1) 07/07/19 06:45 Chloride 104 mmol/L (98-107) 07/07/19 06:45 Carbon Dioxide 27.5 mmol/L (21.0-32.0) 07/07/19 06:45 Anion Gap 6.5 mmol/L (3-11) 07/07/19 06:45 BUN 24 mg/dL (7-18) H 07/07/19 06:45 Creatinine 0.88 mg/dL (0.55-1.02) 07/07/19 06:45 Estimated GFR/1.73 m2 >= 60.00 (mL/min/1.73m2) 07/07/19 06:45 Glucose 91 mg/dL (70-100) 07/07/19 06:45 Calcium 8.8 mg/dL (8.5-10.1) 07/07/19 06:45 Magnesium 1.9 mg/dL (1.8-2.4) 06/21/19 06:37 Total Bilirubin 0.6 mg/dL (0.2-1.0) 06/21/19 06:37 Conjugated Bilirubin 0.22 mg/dL (0.00-0.20) H 06/21/19 06:37 AST 21 U/L (15-37) 06/21/19 06:37 ALT 32 U/L (14-59) 06/21/19 06:37 Alkaline Phosphatase 118 U/L (46-116) H 06/21/19 06:37 Total Protein 6.6 g/dL (6.4-8.2) 06/21/19 06:37 Albumin 2.3 g/dL (3.4-5.0) L 06/21/19 06:37 Urine Color Yellow (Yellow) 07/18/19 19:31 Urine Clarity Cloudy (Clear) 07/18/19 19:31 Urine pH 5.5 (5-8) 07/18/19 19:31 Ur Specific [place] 1.020 (1.005-1.025) 07/18/19 19:31 Urine Protein Trace mg/dL (Negative) H 07/18/19 19:31 Urine Ketones Negative mg/dL (Negative) 07/18/19 19:31 Urine Blood Trace-intact (Negative) H 07/18/19 19:31 Urine Nitrite Negative (Negative) 07/18/19 19:31 Urine Bilirubin Negative (Negative) 07/18/19 19:31 Urine Urobilinogen 0.2 EU/dL (Up TO 0.2) 07/18/19 19:31 Ur Leukocyte Esterase Moderate (Negative) H 07/18/19 19:31 Urine RBC 3-5 (0-2) H 07/18/19 19:31 Urine WBC >50 HPF (0-5) 07/18/19 19:31 Ur Epithelial Cells Rare HPF (Negative) 07/18/19 19:31 Urine Crystals Negative HPF (Negative) 07/18/19 19:31 Urine Bacteria Moderate HPF (Negative) 07/18/19 19:31 Urine Casts Negative LPF (Negative) 07/18/19 19:31 Urine Mucus Negative (Negative) 07/18/19 19:31 Urine Other Negative (Negative) 07/18/19 19:31 Ur Culture Indicated? Yes 07/18/19 19:31 Urine Glucose Negative mg/dL (Negative) 07/18/19 19:31
[2019-08-05 21:25] VITALS: BP 113/75; PULSE 72; RESP 18; TEMP 36.9; O2SAT 95
[2019-08-05] MEDS: Zolpidem 5 MG TAB PO (21:28)
[2019-08-05] MEDS: clonazePAM 1 MG TAB 2 MG PO (21:29)
[2019-08-05 21:30] VITALS: RESP 14
[2019-08-06] MEDS: Acetaminophen 325 MG TAB 650 MG PO ×2 (04:02→09:18)
[2019-08-06] MEDS: Metoprolol 25 MG TAB PO ×3 (06:58→19:43)
[2019-08-06] MEDS: Normal Saline Flush 10 ML SYR IVP (09:15)
[2019-08-06] MEDS: Anastrozole 1 MG TAB PO (09:16)
[2019-08-06] MEDS: Ergocalciferol 50000 UNITS CAP PO (09:16)
[2019-08-06] MEDS: Glucosamine 500 MG CAP PO ×2 (09:16→19:37)
[2019-08-06] MEDS: Folic Acid 1 MG TAB 2 MG PO (09:16)
[2019-08-06] MEDS: Lactobacillus Acidophilus CAP 1 CAP PO ×3 (09:17→19:37)
[2019-08-06] MEDS: Cyclobenzaprine 10 MG TAB PO ×2 (09:18→19:39)
[2019-08-06] MEDS: Senna TAB 1 TAB PO (09:18)
[2019-08-06] MEDS: Ascorbic Acid 500 MG TAB PO ×2 (09:19→19:37)
[2019-08-06] MEDS: Ferrous Sulfate 325 MG TAB PO (09:19)
[2019-08-06] MEDS: Cyanocobalamin 100 MCG TABLET PO (09:19)
[2019-08-06] MEDS: Sertraline 50 MG TAB 150 MG PO (09:20)
[2019-08-06] MEDS: Pantoprazole 40 MG TABCR PO (09:21)
[2019-08-06] MEDS: oxyCODONE 5 MG TAB PO ×2 (09:21→19:38)
[2019-08-06] MEDS: Methylphenidate 10 MG TAB PO ×2 (09:22→13:22)
[2019-08-06 10:00] VITALS: RESP 14
[2019-08-06] MEDS: Albuterol HFA 8 GM 60 PUFF INH IH ×2 (10:01→19:39)
[2019-08-06] MEDS: Budesonide/Formoterol 160/4.5 6 GM 60 PUFF INH IH ×2 (10:02→19:39)
[2019-08-06 11:27] VITALS: BP 91/55; PULSE 74; RESP 17; TEMP 36.3; O2SAT 97
[2019-08-06] MEDS: clonazePAM 1 MG TAB 2 MG PO (19:38)
[2019-08-06] MEDS: Zolpidem 5 MG TAB PO (19:39)
[2019-08-06 19:44] VITALS: BP 104/72; PULSE 72; O2SAT 100
[2019-08-06 19:50] VITALS: O2SAT 100
[2019-08-06 22:30] VITALS: RESP 14
[2019-08-07] MEDS: oxyCODONE 5 MG TAB PO ×3 (04:43→20:42)
[2019-08-07] MEDS: Metoprolol 25 MG TAB PO ×3 (05:24→20:43)
[2019-08-07 05:25] VITALS: BP 89/51; PULSE 80; O2SAT 98
[2019-08-07 10:00] VITALS: RESP 14
[2019-08-07] MEDS: Cyclobenzaprine 10 MG TAB PO ×2 (10:17→20:43)
[2019-08-07] MEDS: Ascorbic Acid 500 MG TAB PO ×2 (10:17→20:44)
[2019-08-07] MEDS: Senna TAB 1 TAB PO (10:18)
[2019-08-07] MEDS: Glucosamine 500 MG CAP PO ×2 (10:18→20:43)
[2019-08-07] MEDS: Folic Acid 1 MG TAB 2 MG PO (10:18)
[2019-08-07] MEDS: Lactobacillus Acidophilus CAP 1 CAP PO ×3 (10:18→20:45)
[2019-08-07] MEDS: Methylphenidate 10 MG TAB PO ×2 (10:19→15:12)
[2019-08-07] MEDS: Pantoprazole 40 MG TABCR PO (10:19)
[2019-08-07] MEDS: Cyanocobalamin 100 MCG TABLET PO (10:19)
[2019-08-07] MEDS: Ferrous Sulfate 325 MG TAB PO (10:19)
[2019-08-07] MEDS: Anastrozole 1 MG TAB PO (10:19)
[2019-08-07] MEDS: Sertraline 50 MG TAB 150 MG PO (10:20)
[2019-08-07] MEDS: Acetaminophen 325 MG TAB 650 MG PO ×2 (10:20→18:02)
[2019-08-07] MEDS: Albuterol HFA 8 GM 60 PUFF INH IH ×2 (10:24→20:45)
[2019-08-07] MEDS: Budesonide/Formoterol 160/4.5 6 GM 60 PUFF INH IH ×2 (10:25→20:45)
[2019-08-07 11:58] VITALS: BP 94/55; PULSE 76; RESP 16; TEMP 36.8; O2SAT 100
[2019-08-07 15:11] VITALS: BP 95/56
[2019-08-07] MEDS: clonazePAM 1 MG TAB 2 MG PO (20:44)
[2019-08-07] MEDS: Zolpidem 5 MG TAB PO (20:45)
[2019-08-08] MEDS: Acetaminophen 325 MG TAB 650 MG PO ×3 (01:05→17:42)
[2019-08-08] MEDS: oxyCODONE 5 MG TAB PO ×3 (04:34→21:00)
[2019-08-08 06:30] VITALS: BP 100/64; PULSE 78
[2019-08-08] MEDS: Metoprolol 25 MG TAB PO ×3 (06:30→21:01)
[2019-08-08 09:35] VITALS: RESP 14
[2019-08-08] MEDS: Folic Acid 1 MG TAB 2 MG PO (10:34)
[2019-08-08] MEDS: Loperamide 2 MG CAP PO ×3 (10:35→21:00)
[2019-08-08] MEDS: Ferrous Sulfate 325 MG TAB PO (10:35)
[2019-08-08] MEDS: Senna TAB 1 TAB PO (10:35)
[2019-08-08] MEDS: Cyanocobalamin 100 MCG TABLET PO (10:35)
[2019-08-08] MEDS: Anastrozole 1 MG TAB PO (10:35)
[2019-08-08] MEDS: Pantoprazole 40 MG TABCR PO (10:35)
[2019-08-08] MEDS: Lactobacillus Acidophilus CAP 1 CAP PO ×3 (10:35→21:01)
[2019-08-08] MEDS: Glucosamine 500 MG CAP PO ×2 (10:36→21:01)
[2019-08-08] MEDS: Cyclobenzaprine 10 MG TAB PO ×2 (10:36→21:01)
[2019-08-08] MEDS: Sertraline 50 MG TAB 150 MG PO (10:36)
[2019-08-08] MEDS: Ascorbic Acid 500 MG TAB PO ×2 (10:36→21:01)
[2019-08-08] MEDS: Methylphenidate 10 MG TAB PO ×2 (10:37→15:38)
[2019-08-08] MEDS: Albuterol HFA 8 GM 60 PUFF INH IH ×2 (10:46→20:59)
[2019-08-08] MEDS: Budesonide/Formoterol 160/4.5 6 GM 60 PUFF INH IH ×2 (10:46→20:58)
[2019-08-08 20:55] VITALS: BP 94/58; PULSE 87; RESP 16; TEMP 36.3; O2SAT 96
[2019-08-08] MEDS: clonazePAM 1 MG TAB 2 MG PO (21:00)
[2019-08-08] MEDS: Zolpidem 5 MG TAB PO (21:01)
[2019-08-09] MEDS: Acetaminophen 325 MG TAB 650 MG PO ×3 (01:42→17:22)
[2019-08-09] MEDS: oxyCODONE 5 MG TAB PO ×4 (01:42→20:25)
[2019-08-09] MEDS: Metoprolol 25 MG TAB PO ×3 (05:51→20:24)
[2019-08-09 06:04] VITALS: BP 97/52; PULSE 80
[2019-08-09] MEDS: Anastrozole 1 MG TAB PO (08:55)
[2019-08-09] MEDS: Folic Acid 1 MG TAB 2 MG PO (08:56)
[2019-08-09] MEDS: Cyanocobalamin 100 MCG TABLET PO (08:56)
[2019-08-09] MEDS: Lactobacillus Acidophilus CAP 1 CAP PO ×3 (08:56→20:23)
[2019-08-09] MEDS: Ferrous Sulfate 325 MG TAB PO (08:56)
[2019-08-09] MEDS: Glucosamine 500 MG CAP PO ×2 (08:57→20:23)
[2019-08-09] MEDS: Sertraline 50 MG TAB 150 MG PO (08:57)
[2019-08-09] MEDS: Loperamide 2 MG CAP PO ×3 (08:57→20:22)
[2019-08-09] MEDS: Pantoprazole 40 MG TABCR PO (08:58)
[2019-08-09] MEDS: Cyclobenzaprine 10 MG TAB PO ×2 (08:58→20:23)
[2019-08-09] MEDS: Methylphenidate 10 MG TAB PO ×2 (08:58→14:22)
[2019-08-09] MEDS: Ascorbic Acid 500 MG TAB PO ×2 (08:58→20:23)
[2019-08-09] MEDS: Senna TAB 1 TAB PO (08:58)
[2019-08-09] MEDS: Albuterol HFA 8 GM 60 PUFF INH IH ×2 (09:18→20:21)
[2019-08-09] MEDS: Budesonide/Formoterol 160/4.5 6 GM 60 PUFF INH IH ×2 (09:22→20:22)
[2019-08-09] MEDS: Ergocalciferol 50000 UNITS CAP PO (10:32)
[2019-08-09 10:45] VITALS: RESP 14
[2019-08-09] MEDS: Normal Saline Flush 10 ML SYR IVP (14:23)
[2019-08-09] MEDS: Zolpidem 5 MG TAB PO (20:24)
[2019-08-09] MEDS: clonazePAM 1 MG TAB 2 MG PO (20:25)
[2019-08-09 23:06] VITALS: RESP 14
[2019-08-10] MEDS: oxyCODONE 5 MG TAB PO ×4 (02:10→21:02)
[2019-08-10] MEDS: Acetaminophen 325 MG TAB 650 MG PO ×3 (02:54→18:10)
[2019-08-10 06:50] VITALS: BP 95/50; PULSE 76
[2019-08-10] MEDS: Metoprolol 25 MG TAB PO ×3 (07:06→21:02)
[2019-08-10] MEDS: Ascorbic Acid 500 MG TAB PO ×2 (10:10→21:02)
[2019-08-10] MEDS: Anastrozole 1 MG TAB PO (10:11)
[2019-08-10] MEDS: Loperamide 2 MG CAP PO ×3 (10:11→21:02)
[2019-08-10] MEDS: Sertraline 50 MG TAB 150 MG PO (10:11)
[2019-08-10] MEDS: Glucosamine 500 MG CAP PO ×2 (10:12→21:02)
[2019-08-10] MEDS: Pantoprazole 40 MG TABCR PO (10:12)
[2019-08-10] MEDS: Albuterol HFA 8 GM 60 PUFF INH IH ×2 (10:12→21:01)
[2019-08-10] MEDS: Folic Acid 1 MG TAB 2 MG PO (10:12)
[2019-08-10] MEDS: Budesonide/Formoterol 160/4.5 6 GM 60 PUFF INH IH ×2 (10:12→21:02)
[2019-08-10] MEDS: Methylphenidate 10 MG TAB PO ×2 (10:13→13:37)
[2019-08-10] MEDS: Cyclobenzaprine 10 MG TAB PO ×2 (10:13→21:02)
[2019-08-10] MEDS: Cyanocobalamin 100 MCG TABLET PO (10:13)
[2019-08-10] MEDS: Ferrous Sulfate 325 MG TAB PO (10:13)
[2019-08-10] MEDS: Lactobacillus Acidophilus CAP 1 CAP PO ×3 (10:13→21:02)
[2019-08-10] MEDS: Senna TAB 1 TAB PO (10:18)
[2019-08-10 11:46] VITALS: BP 93/54; PULSE 75; RESP 16; TEMP 36.5; O2SAT 100
[2019-08-10 20:47] VITALS: BP 92/60; PULSE 75; RESP 17; TEMP 37.2; O2SAT 97
[2019-08-10] MEDS: clonazePAM 1 MG TAB 2 MG PO (21:01)
[2019-08-10] MEDS: Zolpidem 5 MG TAB PO (21:02)
[2019-08-10 23:03] VITALS: RESP 14
[2019-08-11] MEDS: Acetaminophen 325 MG TAB 650 MG PO ×3 (01:11→18:02)
[2019-08-11] MEDS: oxyCODONE 5 MG TAB PO ×4 (01:12→22:32)
[2019-08-11] MEDS: Metoprolol 25 MG TAB PO ×3 (06:52→22:30)
[2019-08-11] MEDS: Sertraline 50 MG TAB 150 MG PO (10:04)
[2019-08-11] MEDS: Methylphenidate 10 MG TAB PO ×2 (10:04→13:27)
[2019-08-11] MEDS: Anastrozole 1 MG TAB PO (10:04)
[2019-08-11] MEDS: Cyanocobalamin 100 MCG TABLET PO (10:04)
[2019-08-11] MEDS: Lactobacillus Acidophilus CAP 1 CAP PO ×3 (10:05→22:31)
[2019-08-11] MEDS: Ascorbic Acid 500 MG TAB PO ×2 (10:06→22:32)
[2019-08-11] MEDS: Glucosamine 500 MG CAP PO ×2 (10:06→22:32)
[2019-08-11] MEDS: Pantoprazole 40 MG TABCR PO (10:06)
[2019-08-11] MEDS: Ergocalciferol 50000 UNITS CAP PO (10:06)
[2019-08-11] MEDS: Cyclobenzaprine 10 MG TAB PO ×2 (10:07→22:32)
[2019-08-11] MEDS: Folic Acid 1 MG TAB 2 MG PO (10:07)
[2019-08-11] MEDS: Ferrous Sulfate 325 MG TAB PO (10:07)
[2019-08-11] MEDS: Loperamide 2 MG CAP PO ×3 (10:08→22:32)
[2019-08-11] MEDS: Senna TAB 1 TAB PO (10:08)
[2019-08-11] MEDS: Albuterol HFA 8 GM 60 PUFF INH IH ×2 (10:52→22:33)
[2019-08-11] MEDS: Budesonide/Formoterol 160/4.5 6 GM 60 PUFF INH IH ×2 (10:53→22:33)
[2019-08-11 10:54] VITALS: RESP 14
[2019-08-11] MEDS: Normal Saline Flush 10 ML SYR IVP (11:19)
--- NOTE | 2019-08-11 17:08 | CMACTNOTE_ITS ---
- If Service Date Differs Date of service: 08/11/19 Time of Service: 17:08 Care Management Activity Note S/O: Prema is alert and engaged. She has been getting herself in and out of her wheelchair as well as on and off the commode. Staff is reporting that she is polite and engaging well. Prema is proud that she has been continent of urine. Prema has been up in her chair everyday and able to leave the room and go to the gift shop and outside. She is able to go with [facility] to [facility] and return. CM contacted [facility] who are assisting with housing. Prema has a section 8 voucher that would pay for housing per Tracey her community development planner. Housing options through [facility] are being sought including [facility], and [facility]. Barriers include availability of handicap accessible. Prema is planning on an outing on Friday. [facility] is attempting to set up transportation while she is able to go out to [facility]. Prema understands she cannot be out at night in her electric wheelchair. MICHAEL has requested ortho consult for her knee injections she received this as outpatient by and will need a new orthopedic provider since his [place] [facility]. CM will contact service and request appointment. P: Prema remains Sb2 awaiting safe housing. She will have resumption of choices for care highest needs, choices for care and new home health nursing. A caregiver has been identified once she returns to an apartment. Team members include Home Health, [place] [facility] Tracey Gilliam, [facility] housing authority, and [facility]. Letter was sent today to [facility] housing authority requesting and for assistance in finding safe housing options in the [place] area. Prema has declined AFC homes or snf placement.
[2019-08-11] MEDS: Zolpidem 5 MG TAB PO (22:31)
[2019-08-11] MEDS: clonazePAM 1 MG TAB 2 MG PO (22:32)
[2019-08-11] MEDS: Docusate Sodium 100 MG CAP PO (22:41)
[2019-08-12] VITALS (9 sets, daily range): BP systolic 90–115; BP diastolic 59–82; PULSE 82–101; RESP 1–20; TEMP 37.7–38.8; O2SAT 90–97
[2019-08-12] MEDS: Acetaminophen 325 MG TAB 650 MG PO ×3 (03:20→21:27)
[2019-08-12] MEDS: oxyCODONE 5 MG TAB PO ×3 (03:27→21:27)
[2019-08-12] MEDS: Metoprolol 25 MG TAB PO ×3 (06:29→21:27)
[2019-08-12] MEDS: Loperamide 2 MG CAP PO (09:07)
[2019-08-12] MEDS: Cyclobenzaprine 10 MG TAB PO ×2 (09:07→19:43)
[2019-08-12] MEDS: Ascorbic Acid 500 MG TAB PO ×2 (09:07→19:43)
[2019-08-12] MEDS: Ferrous Sulfate 325 MG TAB PO (09:07)
[2019-08-12] MEDS: Senna TAB 1 TAB PO (09:08)
[2019-08-12] MEDS: Sertraline 50 MG TAB 150 MG PO (09:08)
[2019-08-12] MEDS: Lactobacillus Acidophilus CAP 1 CAP PO ×3 (09:08→19:43)
[2019-08-12] MEDS: Folic Acid 1 MG TAB 2 MG PO (09:08)
[2019-08-12] MEDS: Glucosamine 500 MG CAP PO ×2 (09:08→19:43)
[2019-08-12] MEDS: Anastrozole 1 MG TAB PO (09:08)
[2019-08-12] MEDS: Pantoprazole 40 MG TABCR PO (09:08)
[2019-08-12] MEDS: Cyanocobalamin 100 MCG TABLET PO (09:08)
[2019-08-12] MEDS: Methylphenidate 10 MG TAB PO ×2 (09:12→13:10)
[2019-08-12] MEDS: Albuterol/Ipratropium 3 ML UPD VIAL UPD (15:10)
--- NOTE | 2019-08-12 15:20 | CHAPLAIN ---
Prema was sitting up in her wheelchair when I visited. She showed me the progress she is making on her jonna work and talked about all the self-care she is doing on her own. She is interested in getting some more yarn, and I told her I will bring her some.
[2019-08-12] MEDS: Albuterol HFA 8 GM 60 PUFF INH IH (18:19)
[2019-08-12 18:59] LABS: Bilirubin Negative (Negative); Blood Trace-intact (Negative); Clarity Sl Cloudy (Clear); Glucose Negative (Negative); Ketones Negative (Negative); Leukocyte Esterase Large (Negative); Nitrite Positive (Negative); Urobilinogen 0.2 EU/dL (Up TO 0.2)
[2019-08-12 19:18] LABS: Bacteria Many HPF (Negative); C & S Indicated? Yes; Casts Negative LPF (Negative); Crystals Negative HPF (Negative); Epithelial Cells Negative HPF (Negative); Mucus Negative (Negative); RBC Negative (0-2); WBC >50 HPF (0-5)
[2019-08-12] MEDS: Budesonide/Formoterol 160/4.5 6 GM 60 PUFF INH IH (19:44)
[2019-08-12] MEDS: Zolpidem 5 MG TAB PO (21:27)
[2019-08-12] MEDS: clonazePAM 1 MG TAB 2 MG PO (21:27)
[2019-08-12] MEDS: Fosfomycin Tromethamine 3 GM PACKET PO (21:27)
[2019-08-12 21:32] LABS: Abs Immature Grans 0.04 k/cumm (0.0-0.09); Absolute Basophil Count 0.04 k/cumm (0.0-0.2); Absolute Lymphocyte Count 1.25 k/cumm (1.2-3.4); Basophils % 0.2; Eosinophils % 0.5; HCT 38.9 % (36.0-46.0); HGB 12.5 g/dL (12.0-15.5); Immature Grans % 0.2; Lymphocytes % 6.2; Mean Corp. HGB Concentration 32.1 g/dL (32.0-36.0); Mean Corpuscular Volume 105.7 fL (80-95); Mean Platelet Volume 10.3 fL (8.0-11.0); Monocytes % 3.4; Neutrophils % 89.5; Platelet Count 147 x1000/uL (130-400); RBC 3.68 m/cumm (4.00-5.20); RBC Distribution Width 13.6 % (11.7-14.6); White Blood Cell Count 20.14 k/cumm (4.4-10.8)
[2019-08-12 21:39] LABS: Anion Gap 7.1 mmol/L (3-11); BUN 16 mg/dL (7-18); CO2 28.9 mmol/L (21.0-32.0); CREATININE 0.77 mg/dL (0.55-1.02); Calcium 8.6 mg/dL (8.5-10.1); Chloride 103 mmol/L (98-107); Glucose 104 mg/dL (70-100); Sodium 139 mmol/L (136-145)
[2019-08-12 21:40] LABS: Absolute Monocyte Count 0.68 k/cumm (0.11-0.7); Absolute Neutrophil Count 18.03 k/cumm (1.2-6.7)
[2019-08-12 22:36] LABS: Diff Comment RBC Morph Reviewed; Macrocytosis 3+; Stomatocytes 2+
[2019-08-12 22:59] LABS: Procalcitonin 0.6 ng/mL
[2019-08-13] VITALS (10 sets, daily range): BP systolic 85–94; BP diastolic 50–61; PULSE 66–87; RESP 14–22; TEMP 37.4–38; O2SAT 93–100
[2019-08-13] MEDS: MEROPENEM 1 GM in Normal Saline 100 ML IVPB ×4 (00:50→23:32)
[2019-08-13] MEDS: oxyCODONE 5 MG TAB PO ×4 (03:26→20:16)
--- NOTE | 2019-08-13 07:00 | DI.US_ITS ---
EXAM: US RENAL CLINICAL HISTORY: complicated UTI TECHNIQUE: Ultrasound performed using standard protocol. COMPARISON: CT CHEST/ABD/PEL WO from 05/24/2019 FINDINGS: The exam was performed portably. The exam is limited by patient body habitus and immobility. The righ t kidney measures 9.7 cm in length. The left kidney measures 12.0 cm in length. A stone is faintly vi sible at the upper pole of the right kidney. There is no gross evidence of hydronephrosis of either k idney. No perinephric collections are seen. The prevoid bladder volume measured 75 cc's. IMPRESSION: Limited exam due to patient body habitus. Non-obstructing stone at the upper pole the right kidney. No evidence hydronephrosis.
[2019-08-13] MEDS: Metoprolol 25 MG TAB PO ×3 (07:08→20:16)
[2019-08-13] MEDS: Acetaminophen 325 MG TAB 650 MG PO ×3 (07:08→20:17)
[2019-08-13] MEDS: Albuterol HFA 8 GM 60 PUFF INH IH ×2 (09:06→20:13)
[2019-08-13] MEDS: Budesonide/Formoterol 160/4.5 6 GM 60 PUFF INH IH ×2 (09:08→20:14)
[2019-08-13] MEDS: Normal Saline Flush 10 ML SYR IVP ×4 (09:44→23:33)
[2019-08-13] MEDS: Ergocalciferol 50000 UNITS CAP PO (09:48)
[2019-08-13] MEDS: Loperamide 2 MG CAP PO ×3 (09:48→20:15)
[2019-08-13] MEDS: Pantoprazole 40 MG TABCR PO (09:48)
[2019-08-13] MEDS: Lactobacillus Acidophilus CAP 1 CAP PO ×3 (09:48→20:16)
[2019-08-13] MEDS: Cyanocobalamin 100 MCG TABLET PO (09:48)
[2019-08-13] MEDS: Senna TAB 1 TAB PO (09:49)
[2019-08-13] MEDS: Sertraline 50 MG TAB 150 MG PO (09:49)
[2019-08-13] MEDS: Methylphenidate 10 MG TAB PO ×2 (09:49→14:18)
[2019-08-13] MEDS: Glucosamine 500 MG CAP PO ×2 (09:49→20:15)
[2019-08-13] MEDS: Folic Acid 1 MG TAB 2 MG PO (09:49)
[2019-08-13] MEDS: Ferrous Sulfate 325 MG TAB PO (09:50)
[2019-08-13] MEDS: Ascorbic Acid 500 MG TAB PO ×2 (09:50→20:17)
[2019-08-13] MEDS: Cyclobenzaprine 10 MG TAB PO ×2 (09:51→20:17)
[2019-08-13] MEDS: Anastrozole 1 MG TAB PO (09:51)
[2019-08-13 11:17] LABS: Abs Immature Grans 0.02 k/cumm (0.0-0.09); Absolute Basophil Count 0.02 k/cumm (0.0-0.2); Absolute Eosinophil Count 0.19 k/cumm (0.0-0.7); Absolute Lymphocyte Count 0.76 k/cumm (1.2-3.4); Absolute Monocyte Count 0.49 k/cumm (0.11-0.7); Absolute Neutrophil Count 10.98 k/cumm (1.2-6.7); Basophils % 0.2; Eosinophils % 1.5; HGB 12.2 g/dL (12.0-15.5); Immature Grans % 0.2; Lymphocytes % 6.1; Mean Corp. HGB Concentration 30.5 g/dL (32.0-36.0); Mean Corpuscular Hemoglobin 33.3 pg (27.0-33.0); Mean Corpuscular Volume 109.3 fL (80-95); Mean Platelet Volume 10.3 fL (8.0-11.0); Monocytes % 3.9; Neutrophils % 88.1; Platelet Count 136 x1000/uL (130-400); RBC 3.66 m/cumm (4.00-5.20); RBC Distribution Width 13.6 % (11.7-14.6); White Blood Cell Count 12.46 k/cumm (4.4-10.8)
[2019-08-13] MEDS: Zolpidem 5 MG TAB PO (20:15)
[2019-08-13] MEDS: clonazePAM 1 MG TAB 2 MG PO (20:15)
[2019-08-14] MEDS: oxyCODONE 5 MG TAB PO ×4 (02:35→21:52)
[2019-08-14] MEDS: Metoprolol 25 MG TAB PO ×3 (06:45→19:36)
[2019-08-14] MEDS: Acetaminophen 325 MG TAB 650 MG PO ×3 (06:45→19:35)
[2019-08-14 06:47] VITALS: BP 92/56; PULSE 84
[2019-08-14] MEDS: Normal Saline Flush 10 ML SYR IVP (08:39)
[2019-08-14] MEDS: MEROPENEM 1 GM in Normal Saline 100 ML IVPB ×2 (08:39→17:06)
[2019-08-14] MEDS: Ferrous Sulfate 325 MG TAB PO (08:40)
[2019-08-14] MEDS: Lactobacillus Acidophilus CAP 1 CAP PO ×3 (08:40→19:35)
[2019-08-14] MEDS: Folic Acid 1 MG TAB 2 MG PO (08:40)
[2019-08-14] MEDS: Glucosamine 500 MG CAP PO ×2 (08:40→19:34)
[2019-08-14] MEDS: Cyanocobalamin 100 MCG TABLET PO (08:41)
[2019-08-14] MEDS: methylPREDNISolone ACETATE 80 MG/ML VIAL IJ (08:41)
[2019-08-14] MEDS: Ascorbic Acid 500 MG TAB PO ×2 (08:41→19:34)
[2019-08-14] MEDS: Anastrozole 1 MG TAB PO (08:41)
[2019-08-14] MEDS: Sertraline 50 MG TAB 150 MG PO (08:41)
[2019-08-14] MEDS: Senna TAB 1 TAB PO (08:41)
[2019-08-14] MEDS: Methylphenidate 10 MG TAB PO ×2 (08:41→13:11)
[2019-08-14] MEDS: Pantoprazole 40 MG TABCR PO (08:42)
[2019-08-14] MEDS: Cyclobenzaprine 10 MG TAB PO ×2 (08:42→19:34)
[2019-08-14] MEDS: Bupivacaine 0.5% Pres-Free 30 ML VIAL (11:30)
[2019-08-14 13:00] VITALS: BP 101/64; PULSE 66
[2019-08-14] MEDS: Budesonide/Formoterol 160/4.5 6 GM 60 PUFF INH IH ×2 (15:01→19:39)
[2019-08-14] MEDS: Albuterol HFA 8 GM 60 PUFF INH IH ×2 (15:01→19:40)
[2019-08-14 19:15] VITALS: RESP 14; RESP 16; O2SAT 97
[2019-08-14] MEDS: clonazePAM 1 MG TAB 2 MG PO (19:33)
[2019-08-14] MEDS: Zolpidem 5 MG TAB PO (19:34)
[2019-08-15] MEDS: Normal Saline Flush 10 ML SYR IVP ×3 (00:05→16:17)
[2019-08-15] MEDS: MEROPENEM 1 GM in Normal Saline 100 ML IVPB ×3 (00:05→16:17)
[2019-08-15] MEDS: Acetaminophen 325 MG TAB 650 MG PO ×3 (06:45→20:35)
[2019-08-15] MEDS: Metoprolol 25 MG TAB PO ×3 (06:45→20:37)
[2019-08-15] MEDS: Pantoprazole 40 MG TABCR PO (10:21)
[2019-08-15] MEDS: Senna TAB 1 TAB PO (10:22)
[2019-08-15] MEDS: Cyanocobalamin 100 MCG TABLET PO (10:22)
[2019-08-15] MEDS: Glucosamine 500 MG CAP PO ×2 (10:22→20:37)
[2019-08-15] MEDS: Loperamide 2 MG CAP PO ×3 (10:22→20:37)
[2019-08-15] MEDS: Ascorbic Acid 500 MG TAB PO ×2 (10:22→20:37)
[2019-08-15] MEDS: Folic Acid 1 MG TAB 2 MG PO (10:22)
[2019-08-15] MEDS: Lactobacillus Acidophilus CAP 1 CAP PO ×3 (10:22→20:37)
[2019-08-15] MEDS: Cyclobenzaprine 10 MG TAB PO ×2 (10:22→20:37)
[2019-08-15] MEDS: Sertraline 50 MG TAB 150 MG PO (10:22)
[2019-08-15] MEDS: Ferrous Sulfate 325 MG TAB PO (10:22)
[2019-08-15] MEDS: Methylphenidate 10 MG TAB PO ×2 (10:22→14:02)
[2019-08-15] MEDS: Anastrozole 1 MG TAB PO (10:22)
[2019-08-15] MEDS: Albuterol HFA 8 GM 60 PUFF INH IH ×2 (10:30→20:35)
[2019-08-15] MEDS: Budesonide/Formoterol 160/4.5 6 GM 60 PUFF INH IH ×2 (10:30→20:35)
[2019-08-15 14:00] VITALS: BP 92/54; PULSE 72; RESP 16; TEMP 36.5; O2SAT 98
--- NOTE | 2019-08-15 14:03 | W.ORTHOCONSU ---
Date of service: 08/14/19 Time of Service: 09:36 History of Present Illness History of Present Illness Chief Complaint: Bilateral knee pain Narrative: Prema is a 63-year-old with multiple medical comorbidities. She has had bilateral knee pain for many years. She has been a patient of Dr. Marino for bilateral knee osteoarthritis. She stays in a wheelchair the majority of the day. She does transfer in place is somewhat on the knees. She reports pain at rest but also with attempted activity. The pain is global about the knee. She has had success with Depo-Medrol injections in the past. Consult Reason Bilateral knee pain Assessment and Plan Assessment and plan (1) Osteoarthritis of knees, bilateral: Status: Acute Assessment and plan: Prema is a 63-year-old multiple medical issues who has bilateral knee osteoarthritis. She is minimally ambulatory, weightbearing only for transfers. She is in a wheelchair the majority of the day. She has notable flexion contracture. For all these reasons, not including the many medical issues, I do not think she is a surgical candidate. She has been receiving Depo-Medrol injections every 3 months with good success and therefore, I offered repeat injections today. She tolerated these well. I can see her back in the office in 3 months for likely repeat injection. Qualifiers: Osteoarthritis type: primary Qualified Code(s): M17.0 - Bilateral primary osteoarthritis of knee Review of Systems Review of Systems ROS Unobtainable: All systems reviewed & are unremarkable except as noted in HPI and below PFSH Medical History ADD (attention deficit disorder) Angina at rest Anxiety (Chronic) Asthma Atrial fibrillation (Chronic) Atrial fibrillation Bilateral cataracts (Chronic) Breast cancer Chest pain, atypical Chronic back pain (Chronic) Chronic pain Chronic rhinitis Cirrhosis of liver Compression fracture of spine Decreased visual acuity Depression (Chronic) Depression Diastolic heart failure (Chronic) Diastolic heart failure DJD (degenerative joint disease) (Chronic) Gastric bypass status for obesity GI (gastrointestinal bleed) Goals of care, counseling/discussion (Acute) History of DVD (Chronic) History of paroxysmal supraventricular tachycardia History of PSVT (paroxysmal supraventricular tachycardia) (Chronic) Hx of deep venous thrombosis Hyperparathyroidism , secondary, non-renal Hypertension IBS (irritable bowel syndrome) Illiterate (Acute) Insomnia Morbid obesity Morbid obesity with BMI of 45.0-49.9, adult (Chronic) STACEY (obstructive sleep apnea) (Chronic) STACEY (obstructive sleep apnea) Osteoarthritis Osteopenia Oxygen dependent Paroxysmal atrial fibrillation (Chronic) Rate controlled on metoprolol. PUD (peptic ulcer disease) Pulmonary HTN Right heart failure with reduced right ventricular function (Chronic) Superficial thrombophlebitis Tricuspid regurgitation Surgical History Breast, Mastectomy EGD - MAC Gastric Bypass 1998 History of biliary T-tube placement (Resolved 09/01/18) Family History Mother , also legally blind, ? due to diabetes; in her 80s COPD (chronic obstructive pulmonary disease) Father , in his 80s hateful man physically, sexually, psychologically abusive Glioblastoma Son No problems noted. Son Bipolar 1 disorder ADHD Diabetes Social History Smoking/Tobacco Use Status: Former Tobacco Use Second Hand Exposure: No Alcohol Intake: never Drug use: Never Substance use type: does not use Caregiver/Support person: No Household members: none Housing: apartment Number of Children: 2 number of grandchildren: 1 Communication Needs: Cannot Read Education Level: middle school Do you need help understanding health information?: Always Do you feel safe at home: Yes Do you feel safe in your relationship?: Yes Exam Narrative Exam Narrative: Resting soundly in the hospital bed. She has both flexion of the knee and at the hip. She is morbidly obese and her habitus is quite soft around the knee itself making identification of normal landmarks challenging. Both knees have pain with range of motion. She has about a 20 degree flexion contracture on both sides with passive motion and has a hard time demonstrating any active motion of the knees against resistance. Both knees have pain to palpation throughout, especially the medial joint lines. Results Last Vital Signs Temp 37.9 C H 08/13/19 21:17 Pulse 66 08/14/19 13:00 Resp 16 08/14/19 19:15 BP 101/64 08/14/19 13:00 Pulse Ox 97 08/14/19 19:15 Labs Result diagrams: 08/13/19 11:07 08/12/19 21:00 Procedures Joint Aspiration/Injection Joint Asp./Inject. 1: Time out performed: Yes Side of body: left Joint aspirated: knee Ultrasound guidance: No Skin prep: other (Alcohol) Local anesthesia used: bupivacaine 0.5% Needle size used: 22G Medication injected, if any: other (Depo-Medrol) Amount of medication injected (ml): 1 Patient tolerated procedure: well Complications: none Joint Asp./Inject. 2: Time out performed: Yes Side of body: right Joint aspirated: knee Ultrasound guidance: No Skin prep: other (Alcohol) Local anesthesia used: bupivacaine 0.5% Needle size used: 22G Medication injected, if any: other (Depo-Medrol) Amount of medication injected (ml): 1 Patient tolerated procedure: well Complications: none
[2019-08-15] MEDS: oxyCODONE 5 MG TAB PO ×2 (14:25→20:37)
[2019-08-15 19:05] LABS: Bilirubin Negative (Negative); Blood Negative (Negative); Clarity Sl Cloudy (Clear); Glucose Negative (Negative); Ketones Negative (Negative); Leukocyte Esterase Small (Negative); Nitrite Negative (Negative); Urobilinogen 0.2 EU/dL (Up TO 0.2)
[2019-08-15 19:13] LABS: Epithelial Cells Many HPF (Negative); Other Cells Moderate Yeast (Negative); WBC >50 HPF (0-5)
[2019-08-15 19:14] LABS: Bacteria Rare HPF (Negative); C & S Indicated? Yes; Casts Negative LPF (Negative); Crystals Negative HPF (Negative); Mucus Negative (Negative)
[2019-08-15 19:38] VITALS: BP 90/57; PULSE 79; RESP 20; TEMP 37.1; O2SAT 98
[2019-08-15 20:35] VITALS: TEMP 37.1
[2019-08-15] MEDS: clonazePAM 1 MG TAB 2 MG PO (20:37)
[2019-08-15] MEDS: Zolpidem 5 MG TAB PO (20:37)
[2019-08-15 23:05] VITALS: RESP 14; RESP 16; O2SAT 98
[2019-08-16] MEDS: MEROPENEM 1 GM in Normal Saline 100 ML IVPB ×3 (00:01→16:12)
[2019-08-16] MEDS: Normal Saline Flush 10 ML SYR IVP ×3 (00:02→16:11)
[2019-08-16 04:00] VITALS: RESP 14; RESP 16; O2SAT 98
[2019-08-16 06:09] VITALS: BP 100/60; PULSE 71; O2SAT 99
[2019-08-16] MEDS: Metoprolol 25 MG TAB PO ×3 (06:09→20:28)
[2019-08-16] MEDS: Acetaminophen 325 MG TAB 650 MG PO ×3 (06:09→20:28)
[2019-08-16] MEDS: Ferrous Sulfate 325 MG TAB PO (08:49)
[2019-08-16] MEDS: Pantoprazole 40 MG TABCR PO (08:49)
[2019-08-16] MEDS: Cyanocobalamin 100 MCG TABLET PO (08:50)
[2019-08-16] MEDS: Ascorbic Acid 500 MG TAB PO ×2 (08:50→20:28)
[2019-08-16] MEDS: Anastrozole 1 MG TAB PO (08:50)
[2019-08-16] MEDS: Cyclobenzaprine 10 MG TAB PO ×2 (08:50→20:28)
[2019-08-16] MEDS: Lactobacillus Acidophilus CAP 1 CAP PO ×3 (08:50→20:28)
[2019-08-16] MEDS: Sertraline 50 MG TAB 150 MG PO (08:50)
[2019-08-16] MEDS: Glucosamine 500 MG CAP PO ×2 (08:50→20:28)
[2019-08-16] MEDS: Methylphenidate 10 MG TAB PO ×2 (08:50→13:30)
[2019-08-16] MEDS: Folic Acid 1 MG TAB 2 MG PO (08:50)
[2019-08-16] MEDS: Loperamide 2 MG CAP PO ×3 (08:50→20:29)
[2019-08-16] MEDS: Budesonide/Formoterol 160/4.5 6 GM 60 PUFF INH IH ×2 (09:25→20:27)
[2019-08-16 09:26] VITALS: O2SAT 99
[2019-08-16] MEDS: Albuterol HFA 8 GM 60 PUFF INH IH (09:26)
[2019-08-16 09:28] VITALS: RESP 14
[2019-08-16] MEDS: Ergocalciferol 50000 UNITS CAP PO (09:43)
[2019-08-16] MEDS: oxyCODONE 5 MG TAB PO ×2 (11:52→20:33)
[2019-08-16 13:36] VITALS: BP 93/58; PULSE 90; RESP 16; TEMP 36; O2SAT 98
[2019-08-16] MEDS: Zolpidem 5 MG TAB PO (20:28)
[2019-08-16] MEDS: clonazePAM 1 MG TAB 2 MG PO (20:28)
[2019-08-16 23:08] VITALS: BP 90/55; PULSE 66; RESP 18; TEMP 36; O2SAT 100
--- NOTE | 2019-08-17 00:33 | NUR.NOTE ---
at 1999 pt requested to have Imodium. this nurse explained to pt that we were testing her stool for C-diff and that it would not be a good idea to take it in case she had C-Diff that she would not want to keep the infected stool in her. pt started that she did not care and wanted it anyways. medication given to pt. at 0000 pt refusing IV antibiotic. pt educated on why she needed it. pt stated that she was tired of pooping so much and that she was tired of being a good little girl and letting the staff poke her. will continue to monitor.
[2019-08-17] MEDS: Acetaminophen 325 MG TAB 650 MG PO ×3 (06:36→21:07)
[2019-08-17] MEDS: Metoprolol 25 MG TAB PO ×3 (06:36→21:07)
[2019-08-17] MEDS: Ascorbic Acid 500 MG TAB PO ×2 (09:23→21:07)
[2019-08-17] MEDS: Folic Acid 1 MG TAB 2 MG PO (09:23)
[2019-08-17] MEDS: Glucosamine 500 MG CAP PO ×2 (09:24→21:07)
[2019-08-17] MEDS: Lactobacillus Acidophilus CAP 1 CAP PO (09:24)
[2019-08-17] MEDS: Sertraline 50 MG TAB 150 MG PO (09:24)
[2019-08-17] MEDS: Cyanocobalamin 100 MCG TABLET PO (09:25)
[2019-08-17] MEDS: Methylphenidate 10 MG TAB PO ×2 (09:25→14:47)
[2019-08-17] MEDS: Anastrozole 1 MG TAB PO (09:25)
[2019-08-17] MEDS: Ferrous Sulfate 325 MG TAB PO (09:26)
[2019-08-17] MEDS: Cyclobenzaprine 10 MG TAB PO ×2 (09:26→21:07)
[2019-08-17] MEDS: Pantoprazole 40 MG TABCR PO (09:26)
[2019-08-17] MEDS: oxyCODONE 5 MG TAB PO ×2 (09:41→21:07)
[2019-08-17] MEDS: Loperamide 2 MG CAP PO (09:42)
[2019-08-17] MEDS: metroNIDAZOLE 500 MG TAB PO (17:03)
--- NOTE | 2019-08-17 17:25 | W.PM.PROGNOT ---
Date of Service Date of service: 08/17/19 Time of Service: 17:25 Subjective Subjective Interval history since last seen: Prema has had more diarrhea with an indeterminate C. Diff screen. C. Diff PCR has been sent out. She was initiated on vancomycin PO as well as flagyl. Her imodium was d/c'ed, and questran started. Her PPI was changed to H2 trae. Her probiotic was changed to BioK. Objective Objective Clinical Data: Vital Signs Temperature 36.0 C L 08/16/19 23:08 Temperature Source Tympanic 08/16/19 23:08 Pulse 66 08/16/19 23:08 Pulse Rhythm Irregular 08/17/19 09:30 Respiratory Rate 18 08/16/19 23:08 Respiratory Effort Non-Labored 08/17/19 09:30 Respiratory Depth Normal 08/17/19 09:30 Respiratory Pattern Normal 08/17/19 09:30 Blood Pressure 90/55 L 08/16/19 23:08 Pulse Oximetry 100 08/16/19 23:08 Oxygen Delivery Method Nasal Cannula 08/16/19 23:08 Oxygen Flow Rate 1 08/16/19 23:08 Fraction of Inspired Oxygen (FIO2) 21 08/12/19 11:19 Pain Level 7 08/17/19 14:46 Comment 08/13/19 20:14 Intake & Output 08/16/19 08/17/19 08/17/19 23:59 11:59 23:59 Intake Total 500 / 965 100 / 100 Output Total 700 / 1650 900 / 900 Balance -200 / -685 -800 / -800 Intake: IV 100 / 320 Oral 400 / 640 Injectate 100 / 100 Right Abdomen 100 / 100 Output: Drainage 200 / 750 150 / 150 Right Abdomen 200 / 750 150 / 150 Urine 500 / 900 750 / 750 Other: Urine Color Yellow Urine Appearance Clear Comment mixed with stool Voiding Methods Bedpan Bedpan Laboratory Results WBC 12.46 k/cumm (4.4-10.8) H D 08/13/19 11:07 RBC 3.66 m/cumm (4.00-5.20) L 08/13/19 11:07 Hgb 12.2 g/dL (12.0-15.5) 08/13/19 11:07 Hct 40.0 % (36.0-46.0) 08/13/19 11:07 MCV 109.3 fL (80-95) H D 08/13/19 11:07 MCH 33.3 pg (27.0-33.0) H 08/13/19 11:07 MCHC 30.5 g/dL (32.0-36.0) L 08/13/19 11:07 RDW 13.6 % (11.7-14.6) 08/13/19 11:07 Plt Count 136 x1000/uL (130-400) 08/13/19 11:07 MPV 10.3 fL (8.0-11.0) 08/13/19 11:07 Immature Gran % 0.2 08/13/19 11:07 Neutrophils % 88.1 08/13/19 11:07 Lymphocytes % 6.1 08/13/19 11:07 Monocytes % 3.9 08/13/19 11:07 Eosinophils % 1.5 08/13/19 11:07 Basophils % 0.2 08/13/19 11:07 Absolute Neutrophils 10.98 k/cumm (1.2-6.7) H 08/13/19 11:07 Absolute Lymphocytes 0.76 k/cumm (1.2-3.4) L 08/13/19 11:07 Absolute Monocytes 0.49 k/cumm (0.11-0.7) 08/13/19 11:07 Absolute Eosinophils 0.19 k/cumm (0.0-0.7) 08/13/19 11:07 Absolute Basophils 0.02 k/cumm (0.0-0.2) 08/13/19 11:07 Differential Comment Rbc morph reviewed 08/12/19 21:00 RBC Morphology See below 08/12/19 21:00 Macrocytosis 3+ 08/12/19 21:00 Stomatocytes 2+ 08/12/19 21:00 Sodium 139 mmol/L (136-145) 08/12/19 21:00 Potassium 4.0 mmol/L (3.5-5.1) 08/12/19 21:00 Chloride 103 mmol/L (98-107) 08/12/19 21:00 Carbon Dioxide 28.9 mmol/L (21.0-32.0) 08/12/19 21:00 Anion Gap 7.1 mmol/L (3-11) 08/12/19 21:00 BUN 16 mg/dL (7-18) 08/12/19 21:00 Creatinine 0.77 mg/dL (0.55-1.02) 08/12/19 21:00 Estimated GFR/1.73 m2 >= 60.00 (mL/min/1.73m2) 08/12/19 21:00 Glucose 104 mg/dL (70-100) H 08/12/19 21:00 Calcium 8.6 mg/dL (8.5-10.1) 08/12/19 21:00 Magnesium 1.9 mg/dL (1.8-2.4) 06/21/19 06:37 Total Bilirubin 0.6 mg/dL (0.2-1.0) 06/21/19 06:37 Conjugated Bilirubin 0.22 mg/dL (0.00-0.20) H 06/21/19 06:37 AST 21 U/L (15-37) 06/21/19 06:37 ALT 32 U/L (14-59) 06/21/19 06:37 Alkaline Phosphatase 118 U/L (46-116) H 06/21/19 06:37 Total Protein 6.6 g/dL (6.4-8.2) 06/21/19 06:37 Albumin 2.3 g/dL (3.4-5.0) L 06/21/19 06:37 Procalcitonin 0.6 ng/mL 08/12/19 21:00 Urine Color Yellow (Yellow) 08/15/19 18:56 Urine Clarity Sl cloudy (Clear) 08/15/19 18:56 Urine pH 6.0 (5-8) 08/15/19 18:56 Ur Specific [place] 1.020 (1.005-1.025) 08/15/19 18:56 Urine Protein Negative mg/dL (Negative) 08/15/19 18:56 Urine Ketones Negative mg/dL (Negative) 08/15/19 18:56 Urine Blood Negative (Negative) 08/15/19 18:56 Urine Nitrite Negative (Negative) 08/15/19 18:56 Urine Bilirubin Negative (Negative) 08/15/19 18:56 Urine Urobilinogen 0.2 EU/dL (Up TO 0.2) 08/15/19 18:56 Ur Leukocyte Esterase Small (Negative) H 08/15/19 18:56 Urine RBC 3-5 (0-2) H 08/15/19 18:56 Urine WBC >50 HPF (0-5) 08/15/19 18:56 Ur Epithelial Cells Many HPF (Negative) 08/15/19 18:56 Urine Crystals Negative HPF (Negative) 08/15/19 18:56 Urine Bacteria Rare HPF (Negative) 08/15/19 18:56 Urine Casts Negative LPF (Negative) 08/15/19 18:56 Urine Mucus Negative (Negative) 08/15/19 18:56 Urine Other Moderate yeast (Negative) 08/15/19 18:56 Ur Culture Indicated? Yes 08/15/19 18:56 Urine Glucose Negative mg/dL (Negative) 08/15/19 18:56
[2019-08-17] MEDS: Cholestyramine/Aspartame PKT 1 EACH PO (19:55)
[2019-08-17 20:09] LABS: Result Positive; Specimen Description Feces
[2019-08-17] MEDS: Albuterol HFA 8 GM 60 PUFF INH IH (21:05)
[2019-08-17] MEDS: Budesonide/Formoterol 160/4.5 6 GM 60 PUFF INH IH (21:06)
[2019-08-17] MEDS: Normal Saline Flush 10 ML SYR IVP (21:06)
[2019-08-17] MEDS: Zolpidem 5 MG TAB PO (21:07)
[2019-08-17] MEDS: clonazePAM 1 MG TAB 2 MG PO (21:07)
[2019-08-18] MEDS: metroNIDAZOLE 500 MG TAB PO ×4 (00:09→23:28)
[2019-08-18] MEDS: Metoprolol 25 MG TAB PO ×3 (05:08→22:09)
[2019-08-18] MEDS: Acetaminophen 325 MG TAB 650 MG PO ×3 (05:08→22:09)
[2019-08-18 05:09] VITALS: BP 93/55; PULSE 72; RESP 18; O2SAT 98
[2019-08-18 08:16] VITALS: O2SAT 98
[2019-08-18] MEDS: Famotidine 20 MG TAB 40 MG PO (09:16)
[2019-08-18] MEDS: Folic Acid 1 MG TAB 2 MG PO (09:16)
[2019-08-18] MEDS: Cyclobenzaprine 10 MG TAB PO ×2 (09:16→22:09)
[2019-08-18] MEDS: Ascorbic Acid 500 MG TAB PO ×2 (09:17→22:09)
[2019-08-18] MEDS: Anastrozole 1 MG TAB PO (09:17)
[2019-08-18] MEDS: Cyanocobalamin 100 MCG TABLET PO (09:17)
[2019-08-18] MEDS: Sertraline 50 MG TAB 150 MG PO (09:17)
[2019-08-18] MEDS: oxyCODONE 5 MG TAB PO ×2 (09:17→22:08)
[2019-08-18] MEDS: Methylphenidate 10 MG TAB PO ×2 (09:17→14:08)
[2019-08-18] MEDS: Ergocalciferol 50000 UNITS CAP PO (09:17)
[2019-08-18] MEDS: Glucosamine 500 MG CAP PO ×2 (09:18→22:09)
[2019-08-18] MEDS: Ferrous Sulfate 325 MG TAB PO (09:18)
[2019-08-18] MEDS: Albuterol HFA 8 GM 60 PUFF INH IH ×2 (10:06→22:07)
[2019-08-18] MEDS: Budesonide/Formoterol 160/4.5 6 GM 60 PUFF INH IH ×2 (10:07→22:07)
[2019-08-18 10:10] VITALS: RESP 14
[2019-08-18] MEDS: Normal Saline Flush 10 ML SYR IVP (14:07)
[2019-08-18 14:08] VITALS: BP 93/64; PULSE 73; RESP 18; O2SAT 96
[2019-08-18] MEDS: Cholestyramine/Aspartame PKT 1 EACH PO (19:57)
[2019-08-18 22:00] VITALS: BP 95/56; PULSE 78; RESP 18; TEMP 36.6; O2SAT 98
[2019-08-18] MEDS: clonazePAM 1 MG TAB 2 MG PO (22:09)
[2019-08-18] MEDS: Zolpidem 5 MG TAB PO (22:09)
[2019-08-19] MEDS: Cholestyramine/Aspartame PKT 1 EACH PO ×2 (06:33→19:22)
[2019-08-19] MEDS: Acetaminophen 325 MG TAB 650 MG PO ×3 (06:34→21:04)
[2019-08-19] MEDS: Metoprolol 25 MG TAB PO ×3 (06:34→21:05)
[2019-08-19] MEDS: Sertraline 50 MG TAB 150 MG PO (10:28)
[2019-08-19] MEDS: Folic Acid 1 MG TAB 2 MG PO (10:28)
[2019-08-19] MEDS: Anastrozole 1 MG TAB PO (10:28)
[2019-08-19] MEDS: Ferrous Sulfate 325 MG TAB PO (10:29)
[2019-08-19] MEDS: metroNIDAZOLE 500 MG TAB PO ×2 (10:29→16:03)
[2019-08-19] MEDS: Cyclobenzaprine 10 MG TAB PO ×2 (10:29→21:05)
[2019-08-19] MEDS: Cyanocobalamin 100 MCG TABLET PO (10:29)
[2019-08-19] MEDS: Famotidine 20 MG TAB 40 MG PO (10:29)
[2019-08-19] MEDS: Glucosamine 500 MG CAP PO ×2 (10:29→21:04)
[2019-08-19] MEDS: oxyCODONE 5 MG TAB PO ×3 (10:29→21:04)
[2019-08-19] MEDS: Ascorbic Acid 500 MG TAB PO ×2 (10:30→21:05)
[2019-08-19] MEDS: Budesonide/Formoterol 160/4.5 6 GM 60 PUFF INH IH ×2 (10:30→21:03)
[2019-08-19] MEDS: Methylphenidate 10 MG TAB PO ×2 (10:43→13:08)
--- NOTE | 2019-08-19 11:37 | CMACTNOTE_ITS ---
Care Management Activity Note Prema was found to be CDIFF positive. She remains in SWB level 2 on PO antibiotics. She will meet with MICHAEL Webb of [employer] to complete documents for Housing Voucher to attempt to attain apartment in [facility].
[2019-08-19 21:00] VITALS: BP 91/58; PULSE 73; RESP 16; TEMP 36.1; O2SAT 96
[2019-08-19] MEDS: Albuterol HFA 8 GM 60 PUFF INH IH (21:03)
[2019-08-19] MEDS: clonazePAM 1 MG TAB 2 MG PO (21:03)
[2019-08-19] MEDS: Zolpidem 5 MG TAB PO (21:04)
--- NOTE | 2019-08-19 23:57 | NUR.NOTE ---
Nursing Note: Around 2100 patient had large loose BM and then became upset stating the medications are causing my diarrhea, I do not want any more antibiotics. This nurse educated her about the use of antibiotics and informer her the her c-diff will not get better if she is not taking her medications. Patient continues to refuse any antibiotics. CCRN Emery Nieves aware.
[2019-08-20 06:49] VITALS: BP 101/69; PULSE 77; RESP 16; TEMP 35.8; O2SAT 95
[2019-08-20] MEDS: Acetaminophen 325 MG TAB 650 MG PO ×3 (06:51→20:40)
[2019-08-20] MEDS: Metoprolol 25 MG TAB PO ×3 (06:51→23:07)
[2019-08-20] MEDS: Budesonide/Formoterol 160/4.5 6 GM 60 PUFF INH IH ×2 (10:32→20:40)
[2019-08-20] MEDS: Albuterol HFA 8 GM 60 PUFF INH IH (10:32)
[2019-08-20 10:33] VITALS: RESP 14
[2019-08-20] MEDS: Ergocalciferol 50000 UNITS CAP PO (11:30)
[2019-08-20] MEDS: Methylphenidate 10 MG TAB PO ×2 (11:30→16:44)
[2019-08-20] MEDS: Sertraline 50 MG TAB 150 MG PO (11:30)
[2019-08-20] MEDS: Cyanocobalamin 100 MCG TABLET PO (11:30)
[2019-08-20] MEDS: metroNIDAZOLE 500 MG TAB PO ×3 (11:30→23:08)
[2019-08-20] MEDS: Folic Acid 1 MG TAB 2 MG PO (11:31)
[2019-08-20] MEDS: oxyCODONE 5 MG TAB PO ×3 (11:31→20:41)
[2019-08-20] MEDS: Ferrous Sulfate 325 MG TAB PO (11:31)
[2019-08-20] MEDS: Glucosamine 500 MG CAP PO ×2 (11:31→20:42)
[2019-08-20] MEDS: Famotidine 20 MG TAB 40 MG PO (11:31)
[2019-08-20] MEDS: Anastrozole 1 MG TAB PO (11:31)
[2019-08-20] MEDS: Cyclobenzaprine 10 MG TAB PO ×2 (11:31→20:43)
[2019-08-20] MEDS: Ascorbic Acid 500 MG TAB PO ×2 (11:32→20:43)
[2019-08-20 12:18] VITALS: BP 96/62; PULSE 58; RESP 16; TEMP 36.4; O2SAT 94
--- NOTE | 2019-08-20 12:22 | W.PM.PROGNOT ---
Date of Service Date of service: 08/20/19 Time of Service: 12:22 Subjective Subjective Interval history since last seen: Nursing reported that the patient refused her antibiotics for C.Diff last night. I spoke with Prema and explained to her that, if she does not take the antibiotics, it is possible that her diarrhea would progress into a very serious illness from which she could . Prema verbalized she will take the medications, but she does not want to take questran, which is fine. The patient is tearful talking about the fact that the family thinks that she is crazy. I'm not crazy, I'm just sad! She would like us to talk to her sister Kerline and she is very interested in finally going home to her own apartment. I just want to go home! She wants to talk to Ivelisse (the caremanager). We will contact infection control to clarify any restrictions on patient navigating the hallways with active C.Diff. Objective Objective Clinical Data: Vital Signs Temperature 36.4 C L 08/20/19 12:18 Temperature Source Tympanic 08/20/19 12:18 Pulse 58 L 08/20/19 12:18 Pulse Rhythm Irregular 08/20/19 00:04 Respiratory Rate 16 08/20/19 12:18 Respiratory Effort Non-Labored 08/20/19 00:04 Respiratory Depth Normal 08/20/19 00:04 Respiratory Pattern Normal 08/20/19 00:04 Blood Pressure 96/62 L 08/20/19 12:18 Pulse Oximetry 94 L 08/20/19 12:18 Oxygen Delivery Method Room Air 08/20/19 12:18 Oxygen Flow Rate 0 08/20/19 12:18 Fraction of Inspired Oxygen (FIO2) 21 08/20/19 10:33 Pain Level 3 08/20/19 12:18 Comment 08/13/19 20:14 Intake & Output 08/19/19 08/20/19 08/20/19 23:59 11:59 23:59 Intake Total 485 / 585 Output Total 225 / 525 200 / 200 Balance 260 / 60 -200 / -200 Intake: Oral 480 / 480 Injectate 5 / 5 Right Abdomen 5 / 5 Output: Drainage 225 / 525 200 / 200 Right Abdomen 225 / 525 200 / 200 Other: Urine Color Yellow Yellow Urine Appearance Clear Clear Urine Odor Normal Normal Comment Mixed with stool. Stool Size Large Copious Stool Characteristics Liquid Liquid Brown Brown Voiding Methods Bedpan Bedpan Laboratory Results WBC 12.46 k/cumm (4.4-10.8) H D 08/13/19 11:07 RBC 3.66 m/cumm (4.00-5.20) L 08/13/19 11:07 Hgb 12.2 g/dL (12.0-15.5) 08/13/19 11:07 Hct 40.0 % (36.0-46.0) 08/13/19 11:07 MCV 109.3 fL (80-95) H D 08/13/19 11:07 MCH 33.3 pg (27.0-33.0) H 08/13/19 11:07 MCHC 30.5 g/dL (32.0-36.0) L 08/13/19 11:07 RDW 13.6 % (11.7-14.6) 08/13/19 11:07 Plt Count 136 x1000/uL (130-400) 08/13/19 11:07 MPV 10.3 fL (8.0-11.0) 08/13/19 11:07 Immature Gran % 0.2 08/13/19 11:07 Neutrophils % 88.1 08/13/19 11:07 Lymphocytes % 6.1 08/13/19 11:07 Monocytes % 3.9 08/13/19 11:07 Eosinophils % 1.5 08/13/19 11:07 Basophils % 0.2 08/13/19 11:07 Absolute Neutrophils 10.98 k/cumm (1.2-6.7) H 08/13/19 11:07 Absolute Lymphocytes 0.76 k/cumm (1.2-3.4) L 08/13/19 11:07 Absolute Monocytes 0.49 k/cumm (0.11-0.7) 08/13/19 11:07 Absolute Eosinophils 0.19 k/cumm (0.0-0.7) 08/13/19 11:07 Absolute Basophils 0.02 k/cumm (0.0-0.2) 08/13/19 11:07 Differential Comment Rbc morph reviewed 08/12/19 21:00 RBC Morphology See below 08/12/19 21:00 Macrocytosis 3+ 08/12/19 21:00 Stomatocytes 2+ 08/12/19 21:00 Sodium 139 mmol/L (136-145) 08/12/19 21:00 Potassium 4.0 mmol/L (3.5-5.1) 08/12/19 21:00 Chloride 103 mmol/L (98-107) 08/12/19 21:00 Carbon Dioxide 28.9 mmol/L (21.0-32.0) 08/12/19 21:00 Anion Gap 7.1 mmol/L (3-11) 08/12/19 21:00 BUN 16 mg/dL (7-18) 08/12/19 21:00 Creatinine 0.77 mg/dL (0.55-1.02) 08/12/19 21:00 Estimated GFR/1.73 m2 >= 60.00 (mL/min/1.73m2) 08/12/19 21:00 Glucose 104 mg/dL (70-100) H 08/12/19 21:00 Calcium 8.6 mg/dL (8.5-10.1) 08/12/19 21:00 Magnesium 1.9 mg/dL (1.8-2.4) 06/21/19 06:37 Total Bilirubin 0.6 mg/dL (0.2-1.0) 06/21/19 06:37 Conjugated Bilirubin 0.22 mg/dL (0.00-0.20) H 06/21/19 06:37 AST 21 U/L (15-37) 06/21/19 06:37 ALT 32 U/L (14-59) 06/21/19 06:37 Alkaline Phosphatase 118 U/L (46-116) H 06/21/19 06:37 Total Protein 6.6 g/dL (6.4-8.2) 06/21/19 06:37 Albumin 2.3 g/dL (3.4-5.0) L 06/21/19 06:37 Procalcitonin 0.6 ng/mL 08/12/19 21:00 Urine Color Yellow (Yellow) 08/15/19 18:56 Urine Clarity Sl cloudy (Clear) 08/15/19 18:56 Urine pH 6.0 (5-8) 08/15/19 18:56 Ur Specific [place] 1.020 (1.005-1.025) 08/15/19 18:56 Urine Protein Negative mg/dL (Negative) 08/15/19 18:56 Urine Ketones Negative mg/dL (Negative) 08/15/19 18:56 Urine Blood Negative (Negative) 08/15/19 18:56 Urine Nitrite Negative (Negative) 08/15/19 18:56 Urine Bilirubin Negative (Negative) 08/15/19 18:56 Urine Urobilinogen 0.2 EU/dL (Up TO 0.2) 08/15/19 18:56 Ur Leukocyte Esterase Small (Negative) H 08/15/19 18:56 Urine RBC 3-5 (0-2) H 08/15/19 18:56 Urine WBC >50 HPF (0-5) 08/15/19 18:56 Ur Epithelial Cells Many HPF (Negative) 08/15/19 18:56 Urine Crystals Negative HPF (Negative) 08/15/19 18:56 Urine Bacteria Rare HPF (Negative) 08/15/19 18:56 Urine Casts Negative LPF (Negative) 08/15/19 18:56 Urine Mucus Negative (Negative) 08/15/19 18:56 Urine Other Moderate yeast (Negative) 08/15/19 18:56 Ur Culture Indicated? Yes 08/15/19 18:56 Urine Glucose Negative mg/dL (Negative) 08/15/19 18:56 Stl C.difficile Tox PCR Positive A 08/17/19 10:42 C.difficile Tox Source Feces 08/17/19 10:42
[2019-08-20 20:20] VITALS: RESP 14; O2SAT 100
[2019-08-20] MEDS: clonazePAM 1 MG TAB 2 MG PO (20:42)
[2019-08-20] MEDS: Zolpidem 5 MG TAB PO (20:42)
[2019-08-20 23:08] VITALS: BP 103/55; PULSE 105
[2019-08-21] MEDS: oxyCODONE 5 MG TAB PO ×5 (05:06→21:41)
[2019-08-21 05:07] VITALS: BP 97/59; PULSE 78; O2SAT 95
[2019-08-21] MEDS: Metoprolol 25 MG TAB PO ×3 (05:07→20:23)
[2019-08-21 09:00] VITALS: RESP 14
[2019-08-21] MEDS: Famotidine 20 MG TAB 40 MG PO (09:56)
[2019-08-21] MEDS: Anastrozole 1 MG TAB PO (09:57)
[2019-08-21] MEDS: Cyclobenzaprine 10 MG TAB PO ×2 (09:57→20:24)
[2019-08-21] MEDS: Ferrous Sulfate 325 MG TAB PO (09:57)
[2019-08-21] MEDS: Sertraline 50 MG TAB 150 MG PO (09:57)
[2019-08-21] MEDS: Ascorbic Acid 500 MG TAB PO ×2 (09:57→20:24)
[2019-08-21] MEDS: Glucosamine 500 MG CAP PO ×2 (09:57→20:24)
[2019-08-21] MEDS: Methylphenidate 10 MG TAB PO ×2 (09:57→13:37)
[2019-08-21] MEDS: Cyanocobalamin 100 MCG TABLET PO (09:57)
[2019-08-21] MEDS: Folic Acid 1 MG TAB 2 MG PO (09:58)
[2019-08-21] MEDS: Budesonide/Formoterol 160/4.5 6 GM 60 PUFF INH IH ×2 (09:58→20:25)
[2019-08-21] MEDS: Acetaminophen 325 MG TAB 650 MG PO ×2 (13:36→20:24)
[2019-08-21 13:37] VITALS: BP 99/63; PULSE 72; TEMP 35.9; O2SAT 94
[2019-08-21 20:20] VITALS: BP 93/56; PULSE 78; RESP 14; RESP 18; TEMP 36.2; O2SAT 96
[2019-08-21] MEDS: Zolpidem 5 MG TAB PO (20:24)
[2019-08-21] MEDS: Albuterol HFA 8 GM 60 PUFF INH IH (20:25)
[2019-08-21] MEDS: clonazePAM 1 MG TAB 2 MG PO (20:25)
[2019-08-22] MEDS: Metoprolol 25 MG TAB PO ×3 (07:01→21:22)
[2019-08-22] MEDS: Acetaminophen 325 MG TAB 650 MG PO ×3 (07:01→21:23)
[2019-08-22] MEDS: Anastrozole 1 MG TAB PO (07:39)
[2019-08-22] MEDS: Sertraline 50 MG TAB 150 MG PO (07:39)
[2019-08-22] MEDS: Folic Acid 1 MG TAB 2 MG PO (07:39)
[2019-08-22] MEDS: Ascorbic Acid 500 MG TAB PO ×2 (07:39→19:29)
[2019-08-22] MEDS: Cyanocobalamin 100 MCG TABLET PO (07:39)
[2019-08-22] MEDS: Ferrous Sulfate 325 MG TAB PO (07:39)
[2019-08-22] MEDS: Methylphenidate 10 MG TAB PO ×2 (07:39→14:34)
[2019-08-22] MEDS: Glucosamine 500 MG CAP PO ×2 (07:39→19:29)
[2019-08-22] MEDS: Famotidine 20 MG TAB 40 MG PO (07:39)
[2019-08-22] MEDS: Cyclobenzaprine 10 MG TAB PO ×2 (07:49→19:29)
[2019-08-22] MEDS: Budesonide/Formoterol 160/4.5 6 GM 60 PUFF INH IH ×2 (07:49→19:29)
[2019-08-22] MEDS: oxyCODONE 5 MG TAB PO ×2 (07:49→15:59)
[2019-08-22] MEDS: Albuterol HFA 8 GM 60 PUFF INH IH ×2 (07:59→19:29)
[2019-08-22 09:05] VITALS: RESP 14
[2019-08-22 11:28] VITALS: BP 96/58; PULSE 69; RESP 18; TEMP 36.4; O2SAT 100
[2019-08-22] MEDS: clonazePAM 1 MG TAB 2 MG PO (21:22)
[2019-08-22] MEDS: Zolpidem 5 MG TAB PO (21:23)
[2019-08-22 21:24] VITALS: BP 97/61; PULSE 65; RESP 16; TEMP 36.3; O2SAT 98
[2019-08-23] MEDS: oxyCODONE 5 MG TAB PO ×2 (01:17→13:09)
[2019-08-23] MEDS: Metoprolol 25 MG TAB PO ×3 (05:30→19:54)
[2019-08-23] MEDS: Acetaminophen 325 MG TAB 650 MG PO ×3 (05:30→19:41)
[2019-08-23] MEDS: Methylphenidate 10 MG TAB PO ×2 (08:51→13:09)
[2019-08-23] MEDS: Anastrozole 1 MG TAB PO (08:51)
[2019-08-23] MEDS: Folic Acid 1 MG TAB 2 MG PO (08:51)
[2019-08-23] MEDS: Cyclobenzaprine 10 MG TAB PO ×2 (08:52→19:42)
[2019-08-23] MEDS: Cyanocobalamin 100 MCG TABLET PO (08:52)
[2019-08-23] MEDS: Ascorbic Acid 500 MG TAB PO ×2 (08:52→19:42)
[2019-08-23] MEDS: Sertraline 50 MG TAB 150 MG PO (08:52)
[2019-08-23] MEDS: Famotidine 20 MG TAB 40 MG PO (08:52)
[2019-08-23] MEDS: Ferrous Sulfate 325 MG TAB PO (08:52)
[2019-08-23] MEDS: Glucosamine 500 MG CAP PO ×2 (08:52→19:41)
[2019-08-23] MEDS: Ergocalciferol 50000 UNITS CAP PO (08:56)
[2019-08-23 09:49] VITALS: RESP 14
[2019-08-23] MEDS: metroNIDAZOLE 500 MG TAB PO ×2 (13:26→21:39)
[2019-08-23 13:40] VITALS: BP 97/60; PULSE 65; RESP 18; TEMP 36.6; O2SAT 98
[2019-08-23 19:40] VITALS: O2SAT 96
[2019-08-23] MEDS: clonazePAM 1 MG TAB 2 MG PO (19:40)
[2019-08-23] MEDS: Zolpidem 5 MG TAB PO (19:41)
[2019-08-23] MEDS: Budesonide/Formoterol 160/4.5 6 GM 60 PUFF INH IH (19:42)
[2019-08-23] MEDS: Albuterol HFA 8 GM 60 PUFF INH IH (19:43)
[2019-08-23 19:54] VITALS: BP 126/73; PULSE 80; O2SAT 96
[2019-08-23 22:00] VITALS: RESP 14
[2019-08-24] MEDS: oxyCODONE 5 MG TAB PO ×2 (01:22→19:59)
[2019-08-24] MEDS: Acetaminophen 325 MG TAB 650 MG PO ×3 (05:10→22:06)
[2019-08-24] MEDS: metroNIDAZOLE 500 MG TAB PO ×3 (05:10→20:00)
[2019-08-24] MEDS: Metoprolol 25 MG TAB PO ×2 (05:10→13:44)
[2019-08-24 05:11] VITALS: BP 99/63; PULSE 82; RESP 20; O2SAT 98
[2019-08-24 08:20] VITALS: BP 92/64; PULSE 68; RESP 18; TEMP 36.4; O2SAT 98
[2019-08-24] MEDS: Ferrous Sulfate 325 MG TAB PO (08:40)
[2019-08-24] MEDS: Ascorbic Acid 500 MG TAB PO ×2 (08:41→20:00)
[2019-08-24] MEDS: Glucosamine 500 MG CAP PO ×2 (08:41→19:59)
[2019-08-24] MEDS: Cyanocobalamin 100 MCG TABLET PO (08:41)
[2019-08-24] MEDS: Folic Acid 1 MG TAB 2 MG PO (08:41)
[2019-08-24] MEDS: Cyclobenzaprine 10 MG TAB PO ×2 (08:41→20:00)
[2019-08-24] MEDS: Famotidine 20 MG TAB 40 MG PO (08:41)
[2019-08-24] MEDS: Anastrozole 1 MG TAB PO (08:41)
[2019-08-24] MEDS: Methylphenidate 10 MG TAB PO ×2 (08:41→13:44)
[2019-08-24] MEDS: Sertraline 50 MG TAB 150 MG PO (08:41)
[2019-08-24] MEDS: Albuterol HFA 8 GM 60 PUFF INH IH ×2 (08:42→20:00)
[2019-08-24] MEDS: Budesonide/Formoterol 160/4.5 6 GM 60 PUFF INH IH ×2 (08:42→20:00)
[2019-08-24 09:54] VITALS: RESP 14
[2019-08-24] MEDS: Mylanta Suspension 30 ML CUP PO (10:24)
[2019-08-24 13:35] VITALS: BP 99/59; PULSE 77; RESP 16; TEMP 36.1; O2SAT 99
[2019-08-24 20:00] VITALS: BP 95/56; PULSE 50; RESP 18; TEMP 37.1; O2SAT 98
[2019-08-24] MEDS: Zolpidem 5 MG TAB PO (20:00)
[2019-08-24] MEDS: clonazePAM 1 MG TAB 2 MG PO (20:00)
[2019-08-24 22:00] VITALS: RESP 14
[2019-08-25] MEDS: metroNIDAZOLE 500 MG TAB PO ×3 (05:13→20:16)
[2019-08-25] MEDS: Acetaminophen 325 MG TAB 650 MG PO ×3 (05:17→20:14)
[2019-08-25 05:25] VITALS: BP 90/64; PULSE 52; RESP 18; TEMP 36.4; O2SAT 98
[2019-08-25] MEDS: Water,Injection,Sterile 10 ML VIAL IJ (09:38)
[2019-08-25] MEDS: oxyCODONE 5 MG TAB PO ×3 (09:38→20:16)
[2019-08-25] MEDS: Folic Acid 1 MG TAB 2 MG PO (09:39)
[2019-08-25] MEDS: Ascorbic Acid 500 MG TAB PO ×2 (09:39→19:23)
[2019-08-25] MEDS: Glucosamine 500 MG CAP PO ×2 (09:39→19:23)
[2019-08-25] MEDS: Sertraline 50 MG TAB 150 MG PO (09:39)
[2019-08-25] MEDS: Cyanocobalamin 100 MCG TABLET PO (09:39)
[2019-08-25] MEDS: Ergocalciferol 50000 UNITS CAP PO (09:39)
[2019-08-25] MEDS: Methylphenidate 10 MG TAB PO ×2 (09:39→13:03)
[2019-08-25] MEDS: Anastrozole 1 MG TAB PO (09:39)
[2019-08-25] MEDS: Cyclobenzaprine 10 MG TAB PO ×2 (09:40→19:23)
[2019-08-25] MEDS: Ferrous Sulfate 325 MG TAB PO (09:40)
[2019-08-25] MEDS: Famotidine 20 MG TAB 40 MG PO (09:40)
[2019-08-25] MEDS: Budesonide/Formoterol 160/4.5 6 GM 60 PUFF INH IH ×2 (09:46→19:24)
[2019-08-25] MEDS: Albuterol HFA 8 GM 60 PUFF INH IH ×2 (09:46→19:24)
[2019-08-25 09:47] VITALS: RESP 14
[2019-08-25] MEDS: Mylanta Suspension 30 ML CUP PO (12:16)
[2019-08-25 13:00] VITALS: BP 104/63; PULSE 67
[2019-08-25] MEDS: Metoprolol 25 MG TAB PO ×2 (13:03→20:21)
[2019-08-25 19:20] VITALS: O2SAT 98
[2019-08-25 19:50] VITALS: BP 91/60; PULSE 65
[2019-08-25] MEDS: clonazePAM 1 MG TAB 2 MG PO (20:14)
[2019-08-25] MEDS: Zolpidem 5 MG TAB PO (20:16)
[2019-08-26] MEDS: oxyCODONE 5 MG TAB PO ×2 (03:49→21:18)
[2019-08-26 04:55] VITALS: BP 92/58; PULSE 72; O2SAT 100
[2019-08-26] MEDS: Metoprolol 25 MG TAB PO ×3 (05:06→21:18)
[2019-08-26] MEDS: metroNIDAZOLE 500 MG TAB PO ×3 (05:06→21:17)
[2019-08-26] MEDS: Acetaminophen 325 MG TAB 650 MG PO ×3 (05:07→21:18)
[2019-08-26] MEDS: Sertraline 50 MG TAB 150 MG PO (08:51)
[2019-08-26] MEDS: Cyanocobalamin 100 MCG TABLET PO (08:51)
[2019-08-26] MEDS: Anastrozole 1 MG TAB PO (08:51)
[2019-08-26] MEDS: Methylphenidate 10 MG TAB PO ×2 (08:51→13:41)
[2019-08-26] MEDS: Ferrous Sulfate 325 MG TAB PO (08:52)
[2019-08-26] MEDS: Famotidine 20 MG TAB 40 MG PO (08:52)
[2019-08-26] MEDS: Ascorbic Acid 500 MG TAB PO ×2 (08:52→19:57)
[2019-08-26] MEDS: Glucosamine 500 MG CAP PO ×2 (08:52→19:57)
[2019-08-26] MEDS: Folic Acid 1 MG TAB 2 MG PO (08:52)
[2019-08-26] MEDS: Cyclobenzaprine 10 MG TAB PO ×2 (08:52→19:57)
[2019-08-26] MEDS: Albuterol HFA 8 GM 60 PUFF INH IH ×2 (08:52→21:24)
[2019-08-26] MEDS: Budesonide/Formoterol 160/4.5 6 GM 60 PUFF INH IH ×2 (08:52→19:57)
[2019-08-26 09:00] VITALS: BP 89/51; PULSE 72; RESP 14; TEMP 36.2; O2SAT 98
[2019-08-26 09:56] VITALS: RESP 14
[2019-08-26 13:35] VITALS: BP 94/57; PULSE 73; RESP 15; O2SAT 98
--- NOTE | 2019-08-26 16:51 | PDOC.CMACT ---
- If Service Date Differs Date of service: 08/26/19 Time of Service: 16:51 Care Management Activity Note S/O: Prema is sitting in her wheelchair watching television when CM meets with her. She is alert, pleasant and easily engages in conversation. She inquires when she might be able to leave the hospital and move into her own apartment. CM will continue to follow. P: Prema remains Sb2 awaiting safe housing. Resumption of Choices for Care highest needs, Choices for Care, and new Home Health nursing upon discharge. CM will continue to follow.
[2019-08-26] MEDS: clonazePAM 1 MG TAB 2 MG PO (21:18)
[2019-08-26] MEDS: Zolpidem 5 MG TAB PO (21:18)
[2019-08-26 22:30] VITALS: BP 105/68; PULSE 78; RESP 17; TEMP 36.4; O2SAT 94
[2019-08-27] MEDS: Acetaminophen 325 MG TAB 650 MG PO ×3 (05:05→21:16)
[2019-08-27] MEDS: metroNIDAZOLE 500 MG TAB PO ×3 (05:06→21:16)
[2019-08-27] MEDS: Metoprolol 25 MG TAB PO ×3 (05:07→21:16)
[2019-08-27] MEDS: Budesonide/Formoterol 160/4.5 6 GM 60 PUFF INH IH ×2 (09:07→21:16)
[2019-08-27] MEDS: Albuterol HFA 8 GM 60 PUFF INH IH ×2 (09:08→21:16)
[2019-08-27 09:09] VITALS: PULSE 71; RESP 18; O2SAT 98
[2019-08-27 09:11] VITALS: O2SAT 98
[2019-08-27] MEDS: Anastrozole 1 MG TAB PO (09:14)
[2019-08-27] MEDS: Sertraline 50 MG TAB 150 MG PO (09:14)
[2019-08-27] MEDS: Cyanocobalamin 100 MCG TABLET PO (09:14)
[2019-08-27] MEDS: Glucosamine 500 MG CAP PO ×2 (09:15→19:44)
[2019-08-27] MEDS: Ascorbic Acid 500 MG TAB PO ×2 (09:15→19:44)
[2019-08-27] MEDS: Famotidine 20 MG TAB 40 MG PO (09:15)
[2019-08-27] MEDS: Cyclobenzaprine 10 MG TAB PO ×2 (09:15→19:44)
[2019-08-27] MEDS: Ferrous Sulfate 325 MG TAB PO (09:16)
[2019-08-27] MEDS: Methylphenidate 10 MG TAB PO ×2 (09:16→14:00)
[2019-08-27] MEDS: Folic Acid 1 MG TAB 2 MG PO (09:20)
[2019-08-27] MEDS: Ergocalciferol 50000 UNITS CAP PO (09:25)
[2019-08-27] MEDS: oxyCODONE 5 MG TAB PO ×2 (09:26→19:44)
[2019-08-27] MEDS: Normal Saline Flush 10 ML SYR (14:01)
[2019-08-27 16:04] VITALS: BP 125/75; PULSE 76; RESP 18; TEMP 36.6; O2SAT 96
[2019-08-27] MEDS: clonazePAM 1 MG TAB 2 MG PO (21:16)
[2019-08-27] MEDS: Zolpidem 5 MG TAB PO (21:16)
[2019-08-28] MEDS: oxyCODONE 5 MG TAB PO ×3 (01:45→21:16)
[2019-08-28] MEDS: Acetaminophen 325 MG TAB 650 MG PO ×3 (05:05→21:08)
[2019-08-28] MEDS: metroNIDAZOLE 500 MG TAB PO ×3 (05:05→21:08)
[2019-08-28 05:07] VITALS: BP 95/56; PULSE 50; RESP 19; TEMP 36.1; O2SAT 94
[2019-08-28] MEDS: Sertraline 50 MG TAB 150 MG PO (08:27)
[2019-08-28] MEDS: Anastrozole 1 MG TAB PO (08:27)
[2019-08-28] MEDS: Famotidine 20 MG TAB 40 MG PO (08:28)
[2019-08-28] MEDS: Methylphenidate 10 MG TAB PO ×2 (08:28→13:08)
[2019-08-28] MEDS: Ascorbic Acid 500 MG TAB PO ×2 (08:28→20:14)
[2019-08-28] MEDS: Glucosamine 500 MG CAP PO ×2 (08:28→20:14)
[2019-08-28] MEDS: Ferrous Sulfate 325 MG TAB PO (08:28)
[2019-08-28] MEDS: Cyclobenzaprine 10 MG TAB PO ×2 (08:28→20:14)
[2019-08-28] MEDS: Cyanocobalamin 100 MCG TABLET PO (08:28)
[2019-08-28] MEDS: Folic Acid 1 MG TAB 2 MG PO (08:28)
[2019-08-28] MEDS: Normal Saline Flush 10 ML SYR IVP (08:29)
[2019-08-28] MEDS: Zolpidem 5 MG TAB PO (21:08)
[2019-08-28] MEDS: clonazePAM 1 MG TAB 2 MG PO (21:08)
[2019-08-28] MEDS: Metoprolol 25 MG TAB PO (21:08)
[2019-08-28 21:11] VITALS: BP 103/60; PULSE 91; RESP 18; TEMP 36.2; O2SAT 95
[2019-08-28] MEDS: Albuterol HFA 8 GM 60 PUFF INH IH (21:17)
[2019-08-28] MEDS: Budesonide/Formoterol 160/4.5 6 GM 60 PUFF INH IH (21:17)
[2019-08-29] MEDS: Metoprolol 25 MG TAB PO ×3 (06:48→20:35)
[2019-08-29] MEDS: Acetaminophen 325 MG TAB 650 MG PO ×3 (06:48→20:35)
[2019-08-29] MEDS: metroNIDAZOLE 500 MG TAB PO ×3 (06:48→20:35)
[2019-08-29] MEDS: Methylphenidate 10 MG TAB PO ×2 (09:33→13:51)
[2019-08-29] MEDS: Ascorbic Acid 500 MG TAB PO ×2 (09:33→20:34)
[2019-08-29] MEDS: Anastrozole 1 MG TAB PO (09:33)
[2019-08-29] MEDS: Sertraline 50 MG TAB 150 MG PO (09:34)
[2019-08-29] MEDS: Cyanocobalamin 100 MCG TABLET PO (09:34)
[2019-08-29] MEDS: Folic Acid 1 MG TAB 2 MG PO (09:34)
[2019-08-29] MEDS: Cyclobenzaprine 10 MG TAB PO ×2 (09:34→20:32)
[2019-08-29] MEDS: Glucosamine 500 MG CAP PO ×2 (09:34→20:32)
[2019-08-29] MEDS: Famotidine 20 MG TAB 40 MG PO (09:34)
[2019-08-29] MEDS: Ferrous Sulfate 325 MG TAB PO (09:34)
[2019-08-29] MEDS: Budesonide/Formoterol 160/4.5 6 GM 60 PUFF INH IH ×2 (09:35→20:31)
[2019-08-29] MEDS: Albuterol HFA 8 GM 60 PUFF INH IH (09:35)
[2019-08-29 09:55] VITALS: RESP 14
[2019-08-29] MEDS: Mylanta Suspension 30 ML CUP PO ×2 (10:28→20:53)
[2019-08-29 13:45] VITALS: BP 92/51; PULSE 76; RESP 18; TEMP 36.2; O2SAT 95
[2019-08-29] MEDS: oxyCODONE 5 MG TAB PO (20:34)
[2019-08-29] MEDS: clonazePAM 1 MG TAB 2 MG PO (20:35)
[2019-08-29] MEDS: Zolpidem 5 MG TAB PO (20:35)
[2019-08-29 21:27] VITALS: BP 98/59; PULSE 85; RESP 19; TEMP 36.5; O2SAT 95
[2019-08-30] MEDS: Acetaminophen 325 MG TAB 650 MG PO ×3 (04:58→20:06)
[2019-08-30 04:59] VITALS: BP 100/68; PULSE 60; RESP 17; TEMP 36.6; O2SAT 95
[2019-08-30] MEDS: metroNIDAZOLE 500 MG TAB PO ×3 (04:59→20:05)
[2019-08-30] MEDS: Metoprolol 25 MG TAB PO ×3 (04:59→20:06)
[2019-08-30] MEDS: Ergocalciferol 50000 UNITS CAP PO (09:37)
[2019-08-30] MEDS: Glucosamine 500 MG CAP PO ×2 (09:38→20:06)
[2019-08-30] MEDS: Sertraline 50 MG TAB 150 MG PO (09:38)
[2019-08-30] MEDS: Cyanocobalamin 100 MCG TABLET PO (09:38)
[2019-08-30] MEDS: Methylphenidate 10 MG TAB PO ×2 (09:38→14:00)
[2019-08-30] MEDS: Folic Acid 1 MG TAB 2 MG PO (09:38)
[2019-08-30] MEDS: Anastrozole 1 MG TAB PO (09:38)
[2019-08-30] MEDS: Famotidine 20 MG TAB 40 MG PO (09:38)
[2019-08-30] MEDS: Cyclobenzaprine 10 MG TAB PO ×2 (09:39→20:05)
[2019-08-30] MEDS: Ascorbic Acid 500 MG TAB PO ×2 (09:39→20:04)
[2019-08-30] MEDS: Ferrous Sulfate 325 MG TAB PO (09:39)
[2019-08-30] MEDS: Albuterol HFA 8 GM 60 PUFF INH IH ×2 (09:42→20:04)
[2019-08-30] MEDS: Budesonide/Formoterol 160/4.5 6 GM 60 PUFF INH IH ×2 (09:42→20:04)
[2019-08-30 10:11] VITALS: RESP 14
[2019-08-30] MEDS: Milk of Magnesia 30 ML CUP PO (10:41)
[2019-08-30] MEDS: oxyCODONE 5 MG TAB PO ×2 (12:31→18:28)
[2019-08-30 14:31] VITALS: BP 106/75; PULSE 76; RESP 20; TEMP 36; O2SAT 95
[2019-08-30] MEDS: clonazePAM 1 MG TAB 2 MG PO (20:05)
[2019-08-30] MEDS: Zolpidem 5 MG TAB PO (20:06)
[2019-08-30 22:24] VITALS: RESP 14
[2019-08-30 22:27] VITALS: O2SAT 94
[2019-08-31] MEDS: metroNIDAZOLE 500 MG TAB PO ×3 (05:13→20:38)
[2019-08-31] MEDS: oxyCODONE 5 MG TAB PO ×3 (05:13→20:43)
[2019-08-31] MEDS: Metoprolol 25 MG TAB PO ×3 (05:13→20:37)
[2019-08-31] MEDS: Acetaminophen 325 MG TAB 650 MG PO ×3 (05:13→20:38)
[2019-08-31 05:21] VITALS: BP 144/68; PULSE 68; RESP 18; TEMP 36.7; O2SAT 96
[2019-08-31] MEDS: Ferrous Sulfate 325 MG TAB PO (09:12)
[2019-08-31] MEDS: Glucosamine 500 MG CAP PO ×2 (09:12→20:37)
[2019-08-31] MEDS: Folic Acid 1 MG TAB 2 MG PO (09:12)
[2019-08-31] MEDS: Anastrozole 1 MG TAB PO (09:12)
[2019-08-31] MEDS: Sertraline 50 MG TAB 150 MG PO (09:12)
[2019-08-31] MEDS: Ascorbic Acid 500 MG TAB PO ×2 (09:12→20:37)
[2019-08-31] MEDS: Methylphenidate 10 MG TAB PO ×2 (09:12→13:27)
[2019-08-31] MEDS: Cyanocobalamin 100 MCG TABLET PO (09:12)
[2019-08-31] MEDS: Cyclobenzaprine 10 MG TAB PO ×2 (09:12→20:37)
[2019-08-31] MEDS: Famotidine 20 MG TAB 40 MG PO (09:12)
[2019-08-31] MEDS: Albuterol HFA 8 GM 60 PUFF INH IH ×2 (09:38→20:36)
[2019-08-31] MEDS: Budesonide/Formoterol 160/4.5 6 GM 60 PUFF INH IH ×2 (09:38→20:36)
[2019-08-31] MEDS: Milk of Magnesia 30 ML CUP PO (09:38)
[2019-08-31 09:51] VITALS: RESP 14
[2019-08-31 10:46] VITALS: BP 92/62; PULSE 67; RESP 18; TEMP 36.3; O2SAT 98
[2019-08-31 19:39] VITALS: BP 102/63; PULSE 71; RESP 18; TEMP 36.1; O2SAT 94
[2019-08-31] MEDS: clonazePAM 1 MG TAB 2 MG PO (20:37)
[2019-08-31] MEDS: Zolpidem 5 MG TAB PO (20:37)
[2019-09-01 01:00] VITALS: RESP 14
[2019-09-01 05:00] VITALS: RESP 14; O2SAT 94
[2019-09-01] MEDS: metroNIDAZOLE 500 MG TAB PO ×3 (05:03→21:18)
[2019-09-01] MEDS: Metoprolol 25 MG TAB PO ×3 (05:03→21:18)
[2019-09-01] MEDS: Acetaminophen 325 MG TAB 650 MG PO ×3 (05:04→21:16)
[2019-09-01] MEDS: Cyanocobalamin 100 MCG TABLET PO (09:47)
[2019-09-01] MEDS: Glucosamine 500 MG CAP PO ×2 (09:47→21:17)
[2019-09-01] MEDS: Famotidine 20 MG TAB 40 MG PO (09:47)
[2019-09-01] MEDS: Cyclobenzaprine 10 MG TAB PO ×2 (09:47→21:18)
[2019-09-01] MEDS: Ergocalciferol 50000 UNITS CAP PO (09:47)
[2019-09-01] MEDS: Ascorbic Acid 500 MG TAB PO ×2 (09:47→21:17)
[2019-09-01] MEDS: Anastrozole 1 MG TAB PO (09:47)
[2019-09-01] MEDS: oxyCODONE 5 MG TAB PO ×2 (09:47→21:17)
[2019-09-01] MEDS: Folic Acid 1 MG TAB 2 MG PO (09:47)
[2019-09-01] MEDS: Ferrous Sulfate 325 MG TAB PO (09:47)
[2019-09-01] MEDS: Methylphenidate 10 MG TAB PO ×2 (09:47→14:07)
[2019-09-01] MEDS: Sertraline 50 MG TAB 150 MG PO (09:48)
[2019-09-01] MEDS: Budesonide/Formoterol 160/4.5 6 GM 60 PUFF INH IH ×2 (09:58→21:15)
[2019-09-01] MEDS: Albuterol HFA 8 GM 60 PUFF INH IH ×2 (09:59→21:15)
[2019-09-01 10:02] VITALS: RESP 14
[2019-09-01 15:07] VITALS: BP 89/59; PULSE 65
[2019-09-01 15:54] VITALS: BP 96/62; PULSE 67; RESP 12; TEMP 36.4; O2SAT 97
[2019-09-01] MEDS: clonazePAM 1 MG TAB 2 MG PO (21:16)
[2019-09-01] MEDS: Zolpidem 5 MG TAB PO (21:17)
[2019-09-01 21:22] VITALS: BP 101/58; PULSE 78; RESP 16; TEMP 36.5; O2SAT 98
[2019-09-02] MEDS: metroNIDAZOLE 500 MG TAB PO ×3 (06:32→20:35)
[2019-09-02] MEDS: Acetaminophen 325 MG TAB 650 MG PO ×3 (06:32→20:36)
[2019-09-02] MEDS: Metoprolol 25 MG TAB PO ×3 (06:33→20:37)
[2019-09-02 06:47] VITALS: BP 104/67; PULSE 79; RESP 16; TEMP 35.9; O2SAT 95
[2019-09-02] MEDS: Cyanocobalamin 100 MCG TABLET PO (10:07)
[2019-09-02] MEDS: Anastrozole 1 MG TAB PO (10:07)
[2019-09-02] MEDS: Famotidine 20 MG TAB 40 MG PO (10:07)
[2019-09-02] MEDS: Glucosamine 500 MG CAP PO ×2 (10:07→20:35)
[2019-09-02] MEDS: Folic Acid 1 MG TAB 2 MG PO (10:07)
[2019-09-02] MEDS: Ferrous Sulfate 325 MG TAB PO (10:07)
[2019-09-02] MEDS: oxyCODONE 5 MG TAB PO ×3 (10:07→21:02)
[2019-09-02] MEDS: Sertraline 50 MG TAB 200 MG PO (10:07)
[2019-09-02] MEDS: Cyclobenzaprine 10 MG TAB PO ×2 (10:07→20:35)
[2019-09-02] MEDS: Ascorbic Acid 500 MG TAB PO ×2 (10:08→20:37)
[2019-09-02] MEDS: Methylphenidate 10 MG TAB PO ×2 (10:08→14:18)
[2019-09-02] MEDS: Normal Saline Flush 10 ML SYR IVP (10:13)
[2019-09-02] MEDS: Albuterol HFA 8 GM 60 PUFF INH IH ×2 (10:44→20:41)
[2019-09-02] MEDS: Budesonide/Formoterol 160/4.5 6 GM 60 PUFF INH IH ×2 (10:45→20:41)
[2019-09-02 10:46] VITALS: RESP 14
--- NOTE | 2019-09-02 17:41 | PDOC.CMPRO ---
Care Management Progress Note Prema was lying in bed, quite excited about new housing prospects. She reports anxiously awaiting her lab results so that precautions can be removed and she can look at some new apartments she is wanting to move into. She remains on SWB2 at this time. CM continues to follow.
[2019-09-02 20:08] LABS: Result Negative; Specimen Description Feces
[2019-09-02 20:27] VITALS: BP 95/52; PULSE 73; RESP 18; TEMP 36.5; O2SAT 97
[2019-09-02] MEDS: clonazePAM 1 MG TAB 2 MG PO (20:35)
[2019-09-02] MEDS: Zolpidem 5 MG TAB PO (20:35)
[2019-09-02 21:54] VITALS: RESP 14
[2019-09-03] MEDS: Metoprolol 25 MG TAB PO ×3 (05:06→19:55)
[2019-09-03] MEDS: Acetaminophen 325 MG TAB 650 MG PO ×3 (05:07→23:35)
[2019-09-03] MEDS: metroNIDAZOLE 500 MG TAB PO (05:08)
[2019-09-03] MEDS: oxyCODONE 5 MG TAB PO ×3 (05:08→17:56)
[2019-09-03 08:15] VITALS: RESP 14
[2019-09-03] MEDS: Famotidine 20 MG TAB 40 MG PO (08:48)
[2019-09-03] MEDS: Sertraline 50 MG TAB 200 MG PO (08:49)
[2019-09-03] MEDS: Cyanocobalamin 100 MCG TABLET PO (08:49)
[2019-09-03] MEDS: Ascorbic Acid 500 MG TAB PO ×2 (08:49→19:51)
[2019-09-03] MEDS: Ferrous Sulfate 325 MG TAB PO (08:49)
[2019-09-03] MEDS: Glucosamine 500 MG CAP PO ×2 (08:49→19:52)
[2019-09-03] MEDS: Folic Acid 1 MG TAB 2 MG PO (08:49)
[2019-09-03] MEDS: Anastrozole 1 MG TAB PO (08:49)
[2019-09-03] MEDS: Ergocalciferol 50000 UNITS CAP PO (08:49)
[2019-09-03] MEDS: Cyclobenzaprine 10 MG TAB PO ×2 (08:50→19:52)
[2019-09-03] MEDS: Methylphenidate 10 MG TAB PO ×2 (08:50→13:03)
[2019-09-03 19:25] VITALS: RESP 14
[2019-09-03] MEDS: Zolpidem 5 MG TAB PO (19:51)
[2019-09-03] MEDS: clonazePAM 1 MG TAB 2 MG PO (19:51)
[2019-09-03] MEDS: Albuterol HFA 8 GM 60 PUFF INH IH (19:55)
[2019-09-03] MEDS: Budesonide/Formoterol 160/4.5 6 GM 60 PUFF INH IH (19:55)
[2019-09-03 19:56] VITALS: BP 102/63; PULSE 75; RESP 16; TEMP 36.9; O2SAT 99
[2019-09-04] MEDS: oxyCODONE 5 MG TAB PO ×3 (03:39→19:57)
[2019-09-04] MEDS: Acetaminophen 325 MG TAB 650 MG PO ×3 (06:33→20:02)
[2019-09-04] MEDS: Metoprolol 25 MG TAB PO ×3 (06:33→19:59)
[2019-09-04] MEDS: Methylphenidate 10 MG TAB PO ×2 (10:20→14:02)
[2019-09-04] MEDS: Sertraline 50 MG TAB 200 MG PO (10:20)
[2019-09-04] MEDS: Anastrozole 1 MG TAB PO (10:20)
[2019-09-04] MEDS: Cyclobenzaprine 10 MG TAB PO ×2 (10:22→19:58)
[2019-09-04] MEDS: Ferrous Sulfate 325 MG TAB PO (10:22)
[2019-09-04] MEDS: Glucosamine 500 MG CAP PO ×2 (10:22→19:58)
[2019-09-04] MEDS: Ascorbic Acid 500 MG TAB PO ×2 (10:22→19:57)
[2019-09-04] MEDS: Famotidine 20 MG TAB 40 MG PO (10:23)
[2019-09-04] MEDS: Folic Acid 1 MG TAB 2 MG PO (10:23)
[2019-09-04] MEDS: Cyanocobalamin 100 MCG TABLET PO (10:25)
[2019-09-04] MEDS: Albuterol HFA 8 GM 60 PUFF INH IH ×2 (10:44→19:56)
[2019-09-04] MEDS: Budesonide/Formoterol 160/4.5 6 GM 60 PUFF INH IH ×2 (10:45→19:56)
[2019-09-04 11:42] VITALS: RESP 14
[2019-09-04] MEDS: Loperamide 2 MG CAP PO ×2 (14:02→19:58)
[2019-09-04] MEDS: Normal Saline Flush 10 ML SYR IVP (14:03)
[2019-09-04] MEDS: Zolpidem 5 MG TAB PO (19:58)
[2019-09-04] MEDS: clonazePAM 1 MG TAB 2 MG PO (19:58)
[2019-09-04 22:10] VITALS: BP 108/66; PULSE 76; RESP 17; TEMP 36.9; O2SAT 96
[2019-09-05 00:46] VITALS: RESP 14
[2019-09-05] MEDS: Metoprolol 25 MG TAB PO ×3 (06:37→19:38)
[2019-09-05] MEDS: Acetaminophen 325 MG TAB 650 MG PO ×3 (06:37→19:38)
[2019-09-05 07:30] VITALS: BP 97/62; PULSE 76; RESP 18; TEMP 36.1; O2SAT 99
[2019-09-05] MEDS: Normal Saline Flush 10 ML SYR IVP (09:39)
[2019-09-05] MEDS: Cyanocobalamin 100 MCG TABLET PO (09:40)
[2019-09-05] MEDS: Methylphenidate 10 MG TAB PO ×2 (09:40→13:07)
[2019-09-05] MEDS: Sertraline 50 MG TAB 200 MG PO (09:40)
[2019-09-05] MEDS: oxyCODONE 5 MG TAB PO ×3 (09:40→19:38)
[2019-09-05] MEDS: Anastrozole 1 MG TAB PO (09:40)
[2019-09-05] MEDS: Folic Acid 1 MG TAB 2 MG PO (09:41)
[2019-09-05] MEDS: Famotidine 20 MG TAB 40 MG PO (09:41)
[2019-09-05] MEDS: Loperamide 2 MG CAP PO ×3 (09:41→19:39)
[2019-09-05] MEDS: Glucosamine 500 MG CAP PO ×2 (09:41→19:40)
[2019-09-05] MEDS: Ferrous Sulfate 325 MG TAB PO (09:41)
[2019-09-05] MEDS: Cyclobenzaprine 10 MG TAB PO ×2 (09:41→19:39)
[2019-09-05] MEDS: Ascorbic Acid 500 MG TAB PO ×2 (09:41→19:39)
[2019-09-05] MEDS: Budesonide/Formoterol 160/4.5 6 GM 60 PUFF INH IH ×2 (09:58→19:40)
[2019-09-05 10:55] VITALS: RESP 14
[2019-09-05 19:20] VITALS: RESP 14
[2019-09-05] MEDS: clonazePAM 1 MG TAB 2 MG PO (19:39)
[2019-09-05] MEDS: Albuterol HFA 8 GM 60 PUFF INH IH (19:40)
[2019-09-05] MEDS: Zolpidem 5 MG TAB PO (19:41)
[2019-09-05 19:48] VITALS: BP 115/68; PULSE 74; RESP 16; TEMP 37; O2SAT 99
[2019-09-06 06:01] VITALS: BP 122/72
[2019-09-06] MEDS: oxyCODONE 5 MG TAB PO ×3 (06:18→20:52)
[2019-09-06] MEDS: Acetaminophen 325 MG TAB 650 MG PO ×3 (06:18→20:53)
[2019-09-06] MEDS: Metoprolol 25 MG TAB PO ×3 (06:19→20:53)
[2019-09-06] MEDS: Normal Saline Flush 10 ML SYR IVP (09:17)
[2019-09-06] MEDS: Ascorbic Acid 500 MG TAB PO ×2 (09:18→20:53)
[2019-09-06] MEDS: Folic Acid 1 MG TAB 2 MG PO (09:18)
[2019-09-06] MEDS: Glucosamine 500 MG CAP PO ×2 (09:18→20:53)
[2019-09-06] MEDS: Ergocalciferol 50000 UNITS CAP PO (09:18)
[2019-09-06] MEDS: Famotidine 20 MG TAB 40 MG PO (09:18)
[2019-09-06] MEDS: Sertraline 50 MG TAB 200 MG PO (09:18)
[2019-09-06] MEDS: Cyclobenzaprine 10 MG TAB PO ×2 (09:18→20:53)
[2019-09-06] MEDS: Cyanocobalamin 100 MCG TABLET PO (09:19)
[2019-09-06] MEDS: Loperamide 2 MG CAP PO ×3 (09:19→20:53)
[2019-09-06] MEDS: Ferrous Sulfate 325 MG TAB PO (09:19)
[2019-09-06] MEDS: Methylphenidate 10 MG TAB PO ×2 (09:19→13:16)
[2019-09-06] MEDS: Anastrozole 1 MG TAB PO (09:19)
[2019-09-06] MEDS: Budesonide/Formoterol 160/4.5 6 GM 60 PUFF INH IH ×2 (09:49→20:51)
[2019-09-06] MEDS: Albuterol HFA 8 GM 60 PUFF INH IH ×2 (09:49→20:52)
[2019-09-06 13:18] VITALS: BP 92/61; PULSE 80
[2019-09-06 20:30] VITALS: BP 115/70; PULSE 75; RESP 17; TEMP 36.4; O2SAT 97
[2019-09-06] MEDS: clonazePAM 1 MG TAB 2 MG PO (20:52)
[2019-09-06] MEDS: Zolpidem 5 MG TAB PO (20:53)
[2019-09-06 20:56] VITALS: BP 103/64; PULSE 71; RESP 16; TEMP 36.4; O2SAT 98
[2019-09-07] MEDS: Metoprolol 25 MG TAB PO ×3 (06:49→20:10)
[2019-09-07] MEDS: Acetaminophen 325 MG TAB 650 MG PO ×3 (06:49→19:59)
[2019-09-07 06:50] VITALS: BP 108/68; PULSE 74; RESP 16; TEMP 36.8; O2SAT 98
[2019-09-07] MEDS: Albuterol HFA 8 GM 60 PUFF INH IH ×2 (09:13→20:05)
[2019-09-07 09:14] VITALS: RESP 14
[2019-09-07] MEDS: Budesonide/Formoterol 160/4.5 6 GM 60 PUFF INH IH ×2 (09:14→20:04)
[2019-09-07] MEDS: Anastrozole 1 MG TAB PO (09:21)
[2019-09-07] MEDS: Glucosamine 500 MG CAP PO ×2 (09:21→19:57)
[2019-09-07] MEDS: Cyanocobalamin 100 MCG TABLET PO (09:22)
[2019-09-07] MEDS: Cyclobenzaprine 10 MG TAB PO ×2 (09:22→19:58)
[2019-09-07] MEDS: Sertraline 50 MG TAB 200 MG PO (09:22)
[2019-09-07] MEDS: Ferrous Sulfate 325 MG TAB PO (09:23)
[2019-09-07] MEDS: Ascorbic Acid 500 MG TAB PO ×2 (09:23→19:57)
[2019-09-07] MEDS: Loperamide 2 MG CAP PO ×3 (09:24→19:58)
[2019-09-07] MEDS: Folic Acid 1 MG TAB 2 MG PO (09:24)
[2019-09-07] MEDS: Famotidine 20 MG TAB 40 MG PO (09:24)
[2019-09-07] MEDS: Methylphenidate 10 MG TAB PO ×2 (09:25→13:31)
[2019-09-07] MEDS: oxyCODONE 5 MG TAB PO ×2 (09:25→19:57)
[2019-09-07 13:28] VITALS: BP 99/61; PULSE 68; RESP 18; TEMP 36.9; O2SAT 94
[2019-09-07] MEDS: Zolpidem 5 MG TAB PO (19:57)
[2019-09-07] MEDS: clonazePAM 1 MG TAB 2 MG PO (19:58)
[2019-09-07 20:00] VITALS: BP 103/62; PULSE 78; RESP 14; O2SAT 94
[2019-09-08] MEDS: Acetaminophen 325 MG TAB 650 MG PO ×3 (06:42→20:56)
[2019-09-08 06:43] VITALS: BP 103/67; PULSE 83
[2019-09-08] MEDS: Metoprolol 25 MG TAB PO ×3 (06:43→20:58)
[2019-09-08] MEDS: Albuterol HFA 8 GM 60 PUFF INH IH ×2 (09:23→20:56)
[2019-09-08] MEDS: Budesonide/Formoterol 160/4.5 6 GM 60 PUFF INH IH ×2 (09:23→20:54)
[2019-09-08 09:24] VITALS: RESP 14
[2019-09-08 09:31] VITALS: O2SAT 98
[2019-09-08] MEDS: Anastrozole 1 MG TAB PO (09:35)
[2019-09-08] MEDS: Sertraline 50 MG TAB 200 MG PO (09:35)
[2019-09-08] MEDS: Cyanocobalamin 100 MCG TABLET PO (09:35)
[2019-09-08] MEDS: Ferrous Sulfate 325 MG TAB PO (09:36)
[2019-09-08] MEDS: Glucosamine 500 MG CAP PO ×2 (09:36→20:57)
[2019-09-08] MEDS: oxyCODONE 5 MG TAB PO ×2 (09:37→20:57)
[2019-09-08] MEDS: Cyclobenzaprine 10 MG TAB PO ×2 (09:37→20:57)
[2019-09-08] MEDS: Ascorbic Acid 500 MG TAB PO ×2 (09:37→20:57)
[2019-09-08] MEDS: Famotidine 20 MG TAB 40 MG PO (09:38)
[2019-09-08] MEDS: Loperamide 2 MG CAP PO ×3 (09:38→20:56)
[2019-09-08] MEDS: Folic Acid 1 MG TAB 2 MG PO (09:38)
[2019-09-08] MEDS: Ergocalciferol 50000 UNITS CAP PO (09:39)
[2019-09-08] MEDS: Methylphenidate 10 MG TAB PO ×2 (09:39→17:29)
[2019-09-08 17:20] VITALS: BP 107/64; PULSE 81; RESP 20; TEMP 36.5; O2SAT 100
[2019-09-08] MEDS: Normal Saline Flush 10 ML SYR IVP (18:07)
[2019-09-08 20:45] VITALS: BP 91/57; PULSE 69; RESP 20; TEMP 36.7; O2SAT 97
[2019-09-08] MEDS: clonazePAM 1 MG TAB 2 MG PO (20:56)
[2019-09-08] MEDS: Zolpidem 5 MG TAB PO (20:56)
[2019-09-09] MEDS: oxyCODONE 5 MG TAB PO ×2 (03:11→20:52)
[2019-09-09] MEDS: Metoprolol 25 MG TAB PO ×3 (04:59→20:51)
[2019-09-09] MEDS: Acetaminophen 325 MG TAB 650 MG PO ×3 (04:59→20:49)
[2019-09-09] MEDS: Nystatin POWDER 60 GM JAR TP (05:00)
[2019-09-09 09:02] VITALS: BP 116/72; PULSE 62; RESP 18; TEMP 36; O2SAT 93
[2019-09-09] MEDS: Anastrozole 1 MG TAB PO (09:40)
[2019-09-09] MEDS: Cyanocobalamin 100 MCG TABLET PO (09:40)
[2019-09-09] MEDS: Famotidine 20 MG TAB 40 MG PO (09:41)
[2019-09-09] MEDS: Loperamide 2 MG CAP PO ×3 (09:41→20:49)
[2019-09-09] MEDS: Cyclobenzaprine 10 MG TAB PO ×2 (09:41→20:51)
[2019-09-09] MEDS: Ascorbic Acid 500 MG TAB PO ×2 (09:41→20:49)
[2019-09-09] MEDS: Sertraline 50 MG TAB 200 MG PO (09:42)
[2019-09-09] MEDS: Glucosamine 500 MG CAP PO ×2 (09:42→20:49)
[2019-09-09] MEDS: Ferrous Sulfate 325 MG TAB PO (09:42)
[2019-09-09] MEDS: Methylphenidate 10 MG TAB PO ×2 (09:42→14:12)
[2019-09-09] MEDS: Folic Acid 1 MG TAB 2 MG PO (09:43)
[2019-09-09] MEDS: Budesonide/Formoterol 160/4.5 6 GM 60 PUFF INH IH ×2 (10:33→21:06)
[2019-09-09] MEDS: Albuterol HFA 8 GM 60 PUFF INH IH ×2 (10:33→21:07)
[2019-09-09 10:35] VITALS: RESP 14
[2019-09-09 11:25] VITALS: BP 104/69; PULSE 74; RESP 18; TEMP 36; O2SAT 99
[2019-09-09] MEDS: Zolpidem 5 MG TAB PO (20:49)
[2019-09-09] MEDS: clonazePAM 1 MG TAB 2 MG PO (20:49)
[2019-09-09 21:30] VITALS: BP 120/84; PULSE 88; RESP 18; TEMP 37; O2SAT 97
[2019-09-09 22:36] VITALS: RESP 14
[2019-09-10] MEDS: oxyCODONE 5 MG TAB PO ×3 (03:18→17:07)
[2019-09-10] MEDS: Acetaminophen 325 MG TAB 650 MG PO ×3 (06:26→20:29)
[2019-09-10] MEDS: Metoprolol 25 MG TAB PO ×2 (06:26→20:28)
[2019-09-10] MEDS: Ergocalciferol 50000 UNITS CAP PO (09:33)
[2019-09-10] MEDS: Famotidine 20 MG TAB 40 MG PO (09:33)
[2019-09-10] MEDS: Sertraline 50 MG TAB 200 MG PO (09:33)
[2019-09-10] MEDS: Cyanocobalamin 100 MCG TABLET PO (09:33)
[2019-09-10] MEDS: Loperamide 2 MG CAP PO ×3 (09:33→20:29)
[2019-09-10] MEDS: Glucosamine 500 MG CAP PO ×2 (09:33→20:29)
[2019-09-10] MEDS: Cyclobenzaprine 10 MG TAB PO ×2 (09:34→20:29)
[2019-09-10] MEDS: Methylphenidate 10 MG TAB PO ×2 (09:34→13:32)
[2019-09-10] MEDS: Ferrous Sulfate 325 MG TAB PO (09:34)
[2019-09-10] MEDS: Ascorbic Acid 500 MG TAB PO ×2 (09:34→20:28)
[2019-09-10] MEDS: Anastrozole 1 MG TAB PO (09:34)
[2019-09-10] MEDS: Folic Acid 1 MG TAB 2 MG PO (09:34)
[2019-09-10] MEDS: Albuterol HFA 8 GM 60 PUFF INH IH ×2 (10:17→20:25)
[2019-09-10 10:18] VITALS: RESP 14
[2019-09-10] MEDS: Budesonide/Formoterol 160/4.5 6 GM 60 PUFF INH IH ×2 (10:18→20:28)
[2019-09-10 12:30] VITALS: BP 99/63; PULSE 80; RESP 18; TEMP 36.6; O2SAT 100
--- NOTE | 2019-09-10 12:53 | CMACTNOTE_ITS ---
- If Service Date Differs Date of service: 09/10/19 Time of Service: 12:53 Care Management Activity Note S/O: CM met with Prema at length she has found an apartment in [place] at the [facility]. She has a section 8 voucher that she will be using and she will resume LTM choices for care for private care givers once she returns home. Prema has been able to have rekie and go out to visits in the community using [facility]. She has been able to visit potential apartments and meet with landlords. Prema has been visiting with friends, coloring in her room and visiting the gift shop off the floor. A:Prema is a 63 year old female admitted to SB2 awaiting safe discharge plan. P: Prema will plan to be discharged on 09/26/19 to her new apartment. She will have new nursing, PT, OT and supports through [employer]. She has a private caregiver that will provide at least 4 hours of day of service. She will have new meals on wheels and continued supports through community case management.
[2019-09-10 13:38] VITALS: BP 80/45
[2019-09-10] MEDS: clonazePAM 1 MG TAB 2 MG PO (20:29)
[2019-09-10] MEDS: Zolpidem 5 MG TAB PO (20:29)
[2019-09-10 22:14] VITALS: RESP 14
[2019-09-11] VITALS (7 sets, daily range): BP systolic 88–120; BP diastolic 47–76; PULSE 72–110; RESP 14–20; TEMP 36.7–37; O2SAT 92–99
[2019-09-11] MEDS: oxyCODONE 5 MG TAB PO ×4 (02:52→18:41)
[2019-09-11] MEDS: Acetaminophen 325 MG TAB 650 MG PO ×3 (06:46→21:47)
[2019-09-11] MEDS: Metoprolol 25 MG TAB PO ×3 (06:47→21:48)
[2019-09-11] MEDS: Loperamide 2 MG CAP PO ×3 (09:12→19:33)
[2019-09-11] MEDS: Folic Acid 1 MG TAB 2 MG PO (09:12)
[2019-09-11] MEDS: Glucosamine 500 MG CAP PO ×2 (09:12→19:33)
[2019-09-11] MEDS: Anastrozole 1 MG TAB PO (09:13)
[2019-09-11] MEDS: Ascorbic Acid 500 MG TAB PO ×2 (09:13→19:33)
[2019-09-11] MEDS: Cyanocobalamin 100 MCG TABLET PO (09:13)
[2019-09-11] MEDS: Sertraline 50 MG TAB 200 MG PO (09:13)
[2019-09-11] MEDS: Cyclobenzaprine 10 MG TAB PO ×2 (09:13→19:33)
[2019-09-11] MEDS: Ferrous Sulfate 325 MG TAB PO (09:13)
[2019-09-11] MEDS: Famotidine 20 MG TAB 40 MG PO (09:13)
[2019-09-11] MEDS: Methylphenidate 10 MG TAB PO ×2 (09:13→13:15)
[2019-09-11] MEDS: Budesonide/Formoterol 160/4.5 6 GM 60 PUFF INH IH ×2 (10:31→19:32)
[2019-09-11] MEDS: Albuterol HFA 8 GM 60 PUFF INH IH ×2 (10:31→19:33)
[2019-09-11] MEDS: Normal Saline Flush 10 ML SYR IVP (13:16)
--- NOTE | 2019-09-11 14:26 | W.PM.PROGNOT ---
Date of Service Date of service: 09/11/19 Time of Service: 14:26 Assessment and Plan Assessment and plan (1) Chest pain: Status: Acute Assessment and plan: EKG nonischemic. Will trial home nitroglycerin and check troponins. However, given reproducibility of symptoms, I am inclined to think that the pain is musculoskeletal. Subjective Subjective Interval history since last seen: Prema reports L-sided back and chest pain which feels like heaviness and radiates to L arm. She reports the pain is under her L arm. She has not yet had nitroglycerin, but takes it at home sometimes for these pains. She has pain when I press on her chest as well. She says her normal pain medicine does not work. Reported flank pain to nursing earlier. Exam Narrative Exam Narrative: General: obese female, A&Ox3, sitting in her wheelchair, appears mildly anxious HEENT: EOMI, MMM Heart: RRR Lungs: CTAB anteriorly GI: abdomen is nondistended, obese, soft Extremities: chronic B lymphedema Objective Objective Clinical Data: Vital Signs Temperature 37 C 09/11/19 14:00 Temperature Source Tympanic 09/11/19 14:00 Pulse 82 09/11/19 14:00 Pulse Rhythm Regular 09/11/19 06:58 Respiratory Rate 17 09/11/19 14:00 Respiratory Effort Non-Labored 09/11/19 06:58 Respiratory Depth Normal 09/11/19 06:58 Respiratory Pattern Normal 09/11/19 06:58 Blood Pressure 97/61 L 09/11/19 14:00 Pulse Oximetry 96 09/11/19 14:00 Oxygen Delivery Method Room Air 09/11/19 14:00 Oxygen Flow Rate 0 09/11/19 14:00 Fraction of Inspired Oxygen (FIO2) 21 09/11/19 06:58 Pain Level 9 09/11/19 13:35 Comment 09/09/19 21:30 Intake & Output 09/10/19 09/11/19 09/11/19 23:59 11:59 23:59 Intake Total 375 / 675 240 / 245 5 / 245 Output Total 525 / 525 Balance 375 / -175 240 / -280 -520 / -280 Intake: Oral 240 / 240 Injectate 375 / 375 5 / 5 Right Abdomen 375 / 375 5 / 5 Output: Drainage 525 / 525 Right Abdomen 525 / 525 Other: Urine Color Yellow Yellow Urine Appearance Clear Clear Clear Urine Odor Normal Comment Voiding independently on toilet at this time. voiding independently in toilet Stool Size Moderate Stool Characteristics Soft Formed Brown Voiding Methods Toilet Toilet Toilet Laboratory Results WBC 12.46 k/cumm (4.4-10.8) H D 08/13/19 11:07 RBC 3.66 m/cumm (4.00-5.20) L 08/13/19 11:07 Hgb 12.2 g/dL (12.0-15.5) 08/13/19 11:07 Hct 40.0 % (36.0-46.0) 08/13/19 11:07 MCV 109.3 fL (80-95) H D 08/13/19 11:07 MCH 33.3 pg (27.0-33.0) H 08/13/19 11:07 MCHC 30.5 g/dL (32.0-36.0) L 08/13/19 11:07 RDW 13.6 % (11.7-14.6) 08/13/19 11:07 Plt Count 136 x1000/uL (130-400) 08/13/19 11:07 MPV 10.3 fL (8.0-11.0) 08/13/19 11:07 Immature Gran % 0.2 08/13/19 11:07 Neutrophils % 88.1 08/13/19 11:07 Lymphocytes % 6.1 08/13/19 11:07 Monocytes % 3.9 08/13/19 11:07 Eosinophils % 1.5 08/13/19 11:07 Basophils % 0.2 08/13/19 11:07 Absolute Neutrophils 10.98 k/cumm (1.2-6.7) H 08/13/19 11:07 Absolute Lymphocytes 0.76 k/cumm (1.2-3.4) L 08/13/19 11:07 Absolute Monocytes 0.49 k/cumm (0.11-0.7) 08/13/19 11:07 Absolute Eosinophils 0.19 k/cumm (0.0-0.7) 08/13/19 11:07 Absolute Basophils 0.02 k/cumm (0.0-0.2) 08/13/19 11:07 Differential Comment Rbc morph reviewed 08/12/19 21:00 RBC Morphology See below 08/12/19 21:00 Macrocytosis 3+ 08/12/19 21:00 Stomatocytes 2+ 08/12/19 21:00 Sodium 139 mmol/L (136-145) 08/12/19 21:00 Potassium 4.0 mmol/L (3.5-5.1) 08/12/19 21:00 Chloride 103 mmol/L (98-107) 08/12/19 21:00 Carbon Dioxide 28.9 mmol/L (21.0-32.0) 08/12/19 21:00 Anion Gap 7.1 mmol/L (3-11) 08/12/19 21:00 BUN 16 mg/dL (7-18) 08/12/19 21:00 Creatinine 0.77 mg/dL (0.55-1.02) 08/12/19 21:00 Estimated GFR/1.73 m2 >= 60.00 (mL/min/1.73m2) 08/12/19 21:00 Glucose 104 mg/dL (70-100) H 08/12/19 21:00 Calcium 8.6 mg/dL (8.5-10.1) 08/12/19 21:00 Magnesium 1.9 mg/dL (1.8-2.4) 06/21/19 06:37 Total Bilirubin 0.6 mg/dL (0.2-1.0) 06/21/19 06:37 Conjugated Bilirubin 0.22 mg/dL (0.00-0.20) H 06/21/19 06:37 AST 21 U/L (15-37) 06/21/19 06:37 ALT 32 U/L (14-59) 06/21/19 06:37 Alkaline Phosphatase 118 U/L (46-116) H 06/21/19 06:37 Total Protein 6.6 g/dL (6.4-8.2) 06/21/19 06:37 Albumin 2.3 g/dL (3.4-5.0) L 06/21/19 06:37 Procalcitonin 0.6 ng/mL 08/12/19 21:00 Urine Color Yellow (Yellow) 08/15/19 18:56 Urine Clarity Sl cloudy (Clear) 08/15/19 18:56 Urine pH 6.0 (5-8) 08/15/19 18:56 Ur Specific [place] 1.020 (1.005-1.025) 08/15/19 18:56 Urine Protein Negative mg/dL (Negative) 08/15/19 18:56 Urine Ketones Negative mg/dL (Negative) 08/15/19 18:56 Urine Blood Negative (Negative) 08/15/19 18:56 Urine Nitrite Negative (Negative) 08/15/19 18:56 Urine Bilirubin Negative (Negative) 08/15/19 18:56 Urine Urobilinogen 0.2 EU/dL (Up TO 0.2) 08/15/19 18:56 Ur Leukocyte Esterase Small (Negative) H 08/15/19 18:56 Urine RBC 3-5 (0-2) H 08/15/19 18:56 Urine WBC >50 HPF (0-5) 08/15/19 18:56 Ur Epithelial Cells Many HPF (Negative) 08/15/19 18:56 Urine Crystals Negative HPF (Negative) 08/15/19 18:56 Urine Bacteria Rare HPF (Negative) 08/15/19 18:56 Urine Casts Negative LPF (Negative) 08/15/19 18:56 Urine Mucus Negative (Negative) 08/15/19 18:56 Urine Other Moderate yeast (Negative) 08/15/19 18:56 Ur Culture Indicated? Yes 08/15/19 18:56 Urine Glucose Negative mg/dL (Negative) 08/15/19 18:56 Stl C.difficile Tox PCR Negative 09/01/19 14:45 C.difficile Tox Source Feces 09/01/19 14:45 EKG: reviewed on monitor still attached to the patient. no acute ischemia.
[2019-09-11 15:24] LABS: Troponin I < 0.05 ng/mL (0.00-0.06)
[2019-09-11 17:50] LABS: Troponin I < 0.05 ng/mL (0.00-0.06)
[2019-09-11] MEDS: Mylanta Suspension 30 ML CUP PO ×2 (18:47→22:09)
[2019-09-11] MEDS: Zolpidem 5 MG TAB PO (21:47)
[2019-09-11] MEDS: clonazePAM 1 MG TAB 2 MG PO (21:47)
[2019-09-12 05:17] VITALS: BP 95/59; PULSE 69; RESP 18; TEMP 36.4; O2SAT 99
[2019-09-12] MEDS: Acetaminophen 325 MG TAB 650 MG PO ×3 (05:17→21:22)
[2019-09-12] MEDS: oxyCODONE 5 MG TAB PO ×3 (05:19→21:21)
[2019-09-12] MEDS: Metoprolol 25 MG TAB PO ×3 (05:19→21:22)
[2019-09-12] MEDS: Cyanocobalamin 100 MCG TABLET PO (08:56)
[2019-09-12] MEDS: Sertraline 50 MG TAB 200 MG PO (08:56)
[2019-09-12] MEDS: Ascorbic Acid 500 MG TAB PO (08:56)
[2019-09-12] MEDS: Ferrous Sulfate 325 MG TAB PO (08:56)
[2019-09-12] MEDS: Cyclobenzaprine 10 MG TAB PO ×2 (08:56→21:23)
[2019-09-12] MEDS: Famotidine 20 MG TAB 40 MG PO (08:56)
[2019-09-12] MEDS: Folic Acid 1 MG TAB 2 MG PO (08:56)
[2019-09-12] MEDS: Anastrozole 1 MG TAB PO (08:56)
[2019-09-12] MEDS: Loperamide 2 MG CAP PO ×3 (08:57→21:26)
[2019-09-12] MEDS: Glucosamine 500 MG CAP PO (08:57)
[2019-09-12] MEDS: Methylphenidate 10 MG TAB PO ×2 (08:57→13:35)
[2019-09-12] MEDS: Albuterol HFA 8 GM 60 PUFF INH IH ×2 (09:41→20:03)
[2019-09-12] MEDS: Budesonide/Formoterol 160/4.5 6 GM 60 PUFF INH IH (09:42)
[2019-09-12] MEDS: Normal Saline Flush 10 ML SYR IVP (13:35)
[2019-09-12 13:39] VITALS: BP 89/54; PULSE 70; RESP 18; O2SAT 97
[2019-09-12] MEDS: Zolpidem 5 MG TAB PO (21:22)
[2019-09-12] MEDS: clonazePAM 1 MG TAB 2 MG PO (21:22)
[2019-09-12 21:32] VITALS: BP 115/78; PULSE 76; RESP 16; TEMP 35.8; O2SAT 94
[2019-09-13] MEDS: oxyCODONE 5 MG TAB PO ×3 (02:02→20:21)
[2019-09-13 06:40] VITALS: BP 110/67; PULSE 85; RESP 16; TEMP 36.3; O2SAT 94
[2019-09-13] MEDS: Acetaminophen 325 MG TAB 650 MG PO ×3 (06:44→20:20)
[2019-09-13] MEDS: Metoprolol 25 MG TAB PO ×3 (06:44→20:21)
[2019-09-13] MEDS: Albuterol HFA 8 GM 60 PUFF INH IH ×2 (06:51→20:20)
[2019-09-13] MEDS: Loperamide 2 MG CAP PO ×3 (09:49→20:21)
[2019-09-13] MEDS: Famotidine 20 MG TAB 40 MG PO (09:49)
[2019-09-13] MEDS: Sertraline 50 MG TAB 200 MG PO (09:49)
[2019-09-13] MEDS: Methylphenidate 10 MG TAB PO ×2 (09:50→14:48)
[2019-09-13] MEDS: Cyclobenzaprine 10 MG TAB PO ×2 (09:51→20:21)
[2019-09-13] MEDS: Ergocalciferol 50000 UNITS CAP PO (09:58)
[2019-09-13 14:52] VITALS: BP 93/61; PULSE 76
--- NOTE | 2019-09-13 15:16 | CHAPLAIN ---
I had a short visit with Prema while she was playing [employer] with a friend. She is making plans to move into her new apartment on Sep.26
[2019-09-13 16:50] VITALS: RESP 14
[2019-09-13 20:15] VITALS: BP 94/63; PULSE 73; RESP 16; TEMP 36.2; O2SAT 98
[2019-09-13 20:19] VITALS: RESP 1
[2019-09-13] MEDS: Budesonide/Formoterol 160/4.5 6 GM 60 PUFF INH IH ×2 (20:19→20:22)
[2019-09-13] MEDS: Albuterol/Ipratropium 3 ML UPD VIAL UPD (20:19)
[2019-09-13 20:49] VITALS: RESP 1
[2019-09-13] MEDS: clonazePAM 1 MG TAB 2 MG PO (21:51)
[2019-09-13] MEDS: Zolpidem 5 MG TAB PO (21:51)
[2019-09-14] MEDS: oxyCODONE 5 MG TAB PO ×3 (00:57→22:19)
[2019-09-14] MEDS: Acetaminophen 325 MG TAB 650 MG PO ×3 (06:32→22:20)
[2019-09-14] MEDS: Metoprolol 25 MG TAB PO ×3 (06:34→22:20)
[2019-09-14 06:38] VITALS: BP 89/56; PULSE 66; RESP 16; TEMP 36.5; O2SAT 100
[2019-09-14] MEDS: Methylphenidate 10 MG TAB PO ×2 (09:27→13:06)
[2019-09-14] MEDS: Famotidine 20 MG TAB 40 MG PO (09:27)
[2019-09-14] MEDS: Sertraline 50 MG TAB 200 MG PO (09:27)
[2019-09-14] MEDS: Loperamide 2 MG CAP PO ×3 (09:27→22:20)
[2019-09-14] MEDS: Ascorbic Acid 500 MG TAB PO ×2 (09:27→22:19)
[2019-09-14] MEDS: Cyanocobalamin 100 MCG TABLET PO (09:28)
[2019-09-14] MEDS: Cyclobenzaprine 10 MG TAB PO ×2 (09:28→22:19)
[2019-09-14] MEDS: Anastrozole 1 MG TAB PO (09:28)
[2019-09-14] MEDS: Ferrous Sulfate 325 MG TAB PO (09:28)
[2019-09-14] MEDS: Folic Acid 1 MG TAB 2 MG PO (09:29)
[2019-09-14] MEDS: Glucosamine 500 MG CAP PO ×2 (09:30→22:19)
[2019-09-14] MEDS: Albuterol HFA 8 GM 60 PUFF INH IH ×2 (11:06→22:17)
[2019-09-14 11:07] VITALS: RESP 14
[2019-09-14] MEDS: Budesonide/Formoterol 160/4.5 6 GM 60 PUFF INH IH ×2 (11:18→22:17)
[2019-09-14 13:00] VITALS: BP 132/82; PULSE 75; RESP 16; O2SAT 95
[2019-09-14 19:20] VITALS: BP 95/57; PULSE 89; RESP 20; TEMP 36.7; O2SAT 98
[2019-09-14] MEDS: clonazePAM 1 MG TAB 2 MG PO (22:19)
[2019-09-14] MEDS: Zolpidem 5 MG TAB PO (22:19)
[2019-09-14] MEDS: Nystatin POWDER 60 GM JAR TP (22:43)
[2019-09-14 22:44] VITALS: BP 100/67; PULSE 82; RESP 20; TEMP 36.4; O2SAT 93
[2019-09-15] MEDS: Normal Saline Flush 10 ML SYR IVP (05:25)
[2019-09-15] MEDS: Acetaminophen 325 MG TAB 650 MG PO ×3 (05:26→20:25)
[2019-09-15] MEDS: Metoprolol 25 MG TAB PO ×3 (05:26→20:26)
[2019-09-15 05:35] VITALS: BP 97/63; PULSE 74; RESP 16; O2SAT 94
[2019-09-15] MEDS: Famotidine 20 MG TAB 40 MG PO (09:50)
[2019-09-15] MEDS: oxyCODONE 5 MG TAB PO ×2 (09:50→20:27)
[2019-09-15] MEDS: Cyclobenzaprine 10 MG TAB PO ×2 (09:51→20:27)
[2019-09-15] MEDS: Ferrous Sulfate 325 MG TAB PO (09:51)
[2019-09-15] MEDS: Sertraline 50 MG TAB 200 MG PO (09:51)
[2019-09-15] MEDS: Glucosamine 500 MG CAP PO ×2 (09:51→20:26)
[2019-09-15] MEDS: Anastrozole 1 MG TAB PO (09:52)
[2019-09-15] MEDS: Cyanocobalamin 100 MCG TABLET PO (09:52)
[2019-09-15] MEDS: Ascorbic Acid 500 MG TAB PO ×2 (09:52→20:27)
[2019-09-15] MEDS: Folic Acid 1 MG TAB 2 MG PO (09:52)
[2019-09-15] MEDS: Methylphenidate 10 MG TAB PO ×2 (09:52→13:14)
[2019-09-15] MEDS: Loperamide 2 MG CAP PO ×3 (09:52→20:26)
[2019-09-15] MEDS: Budesonide/Formoterol 160/4.5 6 GM 60 PUFF INH IH ×2 (10:29→20:25)
[2019-09-15] MEDS: Albuterol HFA 8 GM 60 PUFF INH IH ×3 (10:29→20:24)
[2019-09-15 10:30] VITALS: RESP 14
[2019-09-15] MEDS: Ergocalciferol 50000 UNITS CAP PO (13:19)
[2019-09-15] MEDS: clonazePAM 1 MG TAB 2 MG PO (20:26)
[2019-09-15] MEDS: Zolpidem 5 MG TAB PO (20:27)
[2019-09-15] MEDS: Nystatin POWDER 60 GM JAR TP (20:28)
[2019-09-15 21:02] VITALS: BP 91/55; PULSE 65; RESP 19; TEMP 36.5; O2SAT 96
[2019-09-15 22:57] VITALS: RESP 14
[2019-09-16] MEDS: oxyCODONE 5 MG TAB PO ×3 (04:01→20:38)
[2019-09-16] MEDS: Acetaminophen 325 MG TAB 650 MG PO ×3 (06:03→20:37)
[2019-09-16] MEDS: Metoprolol 25 MG TAB PO ×3 (06:03→20:38)
[2019-09-16 09:09] VITALS: RESP 14
[2019-09-16] MEDS: Budesonide/Formoterol 160/4.5 6 GM 60 PUFF INH IH ×2 (09:09→20:36)
[2019-09-16] MEDS: Albuterol HFA 8 GM 60 PUFF INH IH ×2 (09:09→20:37)
[2019-09-16] MEDS: Anastrozole 1 MG TAB PO (09:42)
[2019-09-16] MEDS: Cyanocobalamin 100 MCG TABLET PO (09:42)
[2019-09-16] MEDS: Sertraline 50 MG TAB 200 MG PO (09:42)
[2019-09-16] MEDS: Ascorbic Acid 500 MG TAB PO ×2 (09:42→20:38)
[2019-09-16] MEDS: Famotidine 20 MG TAB 40 MG PO (09:42)
[2019-09-16] MEDS: Loperamide 2 MG CAP PO ×3 (09:42→20:38)
[2019-09-16] MEDS: Glucosamine 500 MG CAP PO ×2 (09:43→20:38)
[2019-09-16] MEDS: Ferrous Sulfate 325 MG TAB PO (09:43)
[2019-09-16] MEDS: Methylphenidate 10 MG TAB PO ×2 (09:43→13:39)
[2019-09-16] MEDS: Cyclobenzaprine 10 MG TAB PO ×2 (09:43→20:38)
[2019-09-16] MEDS: Folic Acid 1 MG TAB 2 MG PO (09:43)
[2019-09-16 13:40] VITALS: BP 95/56; PULSE 78; RESP 14; TEMP 37.1; O2SAT 98
[2019-09-16] MEDS: clonazePAM 1 MG TAB 2 MG PO (20:38)
[2019-09-16 21:12] VITALS: BP 113/68; PULSE 72; RESP 17; TEMP 36.8; O2SAT 95
[2019-09-16] MEDS: Zolpidem 5 MG TAB 10 MG PO (21:36)
[2019-09-17] MEDS: oxyCODONE 5 MG TAB PO ×3 (04:55→21:03)
[2019-09-17 05:18] VITALS: BP 94/61; PULSE 70; O2SAT 99
[2019-09-17] MEDS: Metoprolol 25 MG TAB PO ×3 (05:18→21:06)
[2019-09-17] MEDS: Acetaminophen 325 MG TAB 650 MG PO ×3 (05:18→21:04)
--- NOTE | 2019-09-17 09:21 | NUR.NOTE ---
at 8:30 am pt stated she does not take her morning pills until after 9. Rn returned at 9: 20 PT stated she does not want breakfast and RN needs to return with her pills when she is finish using the toilet. Nursing Note:
[2019-09-17 09:40] VITALS: O2SAT 99
[2019-09-17] MEDS: Famotidine 20 MG TAB 40 MG PO (09:50)
[2019-09-17] MEDS: Methylphenidate 10 MG TAB PO ×2 (09:50→15:31)
[2019-09-17] MEDS: Glucosamine 500 MG CAP PO ×2 (09:51→21:06)
[2019-09-17] MEDS: Folic Acid 1 MG TAB 2 MG PO (09:51)
[2019-09-17] MEDS: Cyanocobalamin 100 MCG TABLET PO (09:52)
[2019-09-17] MEDS: Ferrous Sulfate 325 MG TAB PO (09:52)
[2019-09-17] MEDS: Loperamide 2 MG CAP PO ×3 (09:52→21:08)
[2019-09-17] MEDS: Anastrozole 1 MG TAB PO (09:53)
[2019-09-17] MEDS: Sertraline 50 MG TAB 200 MG PO (09:53)
[2019-09-17] MEDS: Cyclobenzaprine 10 MG TAB PO ×2 (09:55→21:07)
[2019-09-17] MEDS: Ascorbic Acid 500 MG TAB PO ×2 (09:55→21:05)
[2019-09-17] MEDS: Budesonide/Formoterol 160/4.5 6 GM 60 PUFF INH IH ×2 (09:56→21:10)
[2019-09-17] MEDS: Albuterol HFA 8 GM 60 PUFF INH IH ×2 (09:56→21:11)
[2019-09-17] MEDS: Ergocalciferol 50000 UNITS CAP PO (10:00)
[2019-09-17 10:06] VITALS: RESP 14
--- NOTE | 2019-09-17 10:48 | NUR.NOTE ---
pt left unit in her wheel chair at 10:20 am Nursing Note:
[2019-09-17 16:16] VITALS: RESP 14
[2019-09-17] MEDS: Mylanta Suspension 30 ML CUP PO (21:00)
[2019-09-17] MEDS: Zolpidem 5 MG TAB 10 MG PO (21:05)
[2019-09-17] MEDS: clonazePAM 1 MG TAB 2 MG PO (21:06)
[2019-09-18] MEDS: oxyCODONE 5 MG TAB PO ×3 (02:59→20:48)
[2019-09-18 06:30] VITALS: BP 105/65; PULSE 75; RESP 18; TEMP 36.1; O2SAT 100
[2019-09-18] MEDS: Metoprolol 25 MG TAB PO ×3 (07:00→20:48)
[2019-09-18] MEDS: Acetaminophen 325 MG TAB 650 MG PO ×3 (07:00→20:48)
[2019-09-18 09:40] VITALS: O2SAT 99
[2019-09-18] MEDS: Folic Acid 1 MG TAB 2 MG PO (09:47)
[2019-09-18] MEDS: Famotidine 20 MG TAB 40 MG PO (09:47)
[2019-09-18] MEDS: Sertraline 50 MG TAB 200 MG PO (09:48)
[2019-09-18] MEDS: Methylphenidate 10 MG TAB PO ×2 (09:48→14:01)
[2019-09-18] MEDS: Cyanocobalamin 100 MCG TABLET PO (09:49)
[2019-09-18] MEDS: Loperamide 2 MG CAP PO ×3 (09:49→20:48)
[2019-09-18] MEDS: Cyclobenzaprine 10 MG TAB PO ×2 (09:49→20:48)
[2019-09-18] MEDS: Ferrous Sulfate 325 MG TAB PO (09:49)
[2019-09-18] MEDS: Anastrozole 1 MG TAB PO (09:49)
[2019-09-18] MEDS: Glucosamine 500 MG CAP PO ×2 (09:50→20:48)
[2019-09-18] MEDS: Budesonide/Formoterol 160/4.5 6 GM 60 PUFF INH IH ×2 (09:50→20:47)
[2019-09-18] MEDS: Ascorbic Acid 500 MG TAB PO ×2 (10:06→20:49)
[2019-09-18] MEDS: Albuterol HFA 8 GM 60 PUFF INH IH ×2 (10:45→20:47)
[2019-09-18] MEDS: Mylanta Suspension 30 ML CUP PO (10:45)
[2019-09-18 12:56] VITALS: RESP 14
[2019-09-18 13:50] VITALS: BP 95/63; PULSE 78
[2019-09-18] MEDS: Normal Saline Flush 10 ML SYR IVP (17:41)
[2019-09-18 20:45] VITALS: BP 104/64; PULSE 72; RESP 16; TEMP 36.7; O2SAT 96
[2019-09-18] MEDS: clonazePAM 1 MG TAB 2 MG PO (20:47)
[2019-09-18] MEDS: Zolpidem 5 MG TAB 10 MG PO (20:47)
[2019-09-19 05:00] VITALS: BP 124/66; PULSE 80; RESP 16; TEMP 36.7; O2SAT 95
[2019-09-19] MEDS: Metoprolol 25 MG TAB PO ×3 (05:02→20:20)
[2019-09-19] MEDS: Acetaminophen 325 MG TAB 650 MG PO ×3 (05:03→20:20)
[2019-09-19 09:30] VITALS: O2SAT 95
[2019-09-19] MEDS: Anastrozole 1 MG TAB PO (09:50)
[2019-09-19] MEDS: Famotidine 20 MG TAB 40 MG PO (09:50)
[2019-09-19] MEDS: Ascorbic Acid 500 MG TAB PO ×2 (09:50→20:20)
[2019-09-19] MEDS: Sertraline 50 MG TAB 200 MG PO (09:51)
[2019-09-19] MEDS: Cyanocobalamin 100 MCG TABLET PO (09:51)
[2019-09-19] MEDS: Cyclobenzaprine 10 MG TAB PO ×2 (09:52→20:20)
[2019-09-19] MEDS: oxyCODONE 5 MG TAB PO ×3 (09:52→23:20)
[2019-09-19] MEDS: Methylphenidate 10 MG TAB PO ×2 (09:52→14:09)
[2019-09-19] MEDS: Folic Acid 1 MG TAB 2 MG PO (09:52)
[2019-09-19] MEDS: Ferrous Sulfate 325 MG TAB PO (09:52)
[2019-09-19] MEDS: Glucosamine 500 MG CAP PO ×2 (09:53→20:19)
[2019-09-19] MEDS: Loperamide 2 MG CAP PO ×3 (09:53→20:20)
[2019-09-19] MEDS: Budesonide/Formoterol 160/4.5 6 GM 60 PUFF INH IH ×2 (09:54→20:18)
[2019-09-19] MEDS: Albuterol HFA 8 GM 60 PUFF INH IH ×2 (09:54→20:18)
[2019-09-19] MEDS: Nystatin POWDER 60 GM JAR TP (10:00)
[2019-09-19 13:21] VITALS: RESP 14
[2019-09-19 14:10] VITALS: BP 95/59; PULSE 77
[2019-09-19] MEDS: Normal Saline Flush 10 ML SYR IVP (17:53)
[2019-09-19] MEDS: Zolpidem 5 MG TAB 10 MG PO (20:19)
[2019-09-19] MEDS: clonazePAM 1 MG TAB 2 MG PO (20:20)
[2019-09-19 20:30] VITALS: BP 90/59; PULSE 80; RESP 18; O2SAT 91
[2019-09-20 04:00] VITALS: BP 101/65; PULSE 69; RESP 14; RESP 16; TEMP 36.2; O2SAT 92
[2019-09-20] MEDS: Acetaminophen 325 MG TAB 650 MG PO ×3 (04:15→20:55)
[2019-09-20] MEDS: oxyCODONE 5 MG TAB PO ×4 (04:17→21:07)
[2019-09-20] MEDS: Metoprolol 25 MG TAB PO ×3 (04:17→21:14)
[2019-09-20] MEDS: Cyanocobalamin 100 MCG TABLET PO (09:40)
[2019-09-20] MEDS: Sertraline 50 MG TAB 200 MG PO (09:40)
[2019-09-20] MEDS: Glucosamine 500 MG CAP PO ×2 (09:40→20:54)
[2019-09-20] MEDS: Methylphenidate 10 MG TAB PO ×2 (09:40→16:49)
[2019-09-20] MEDS: Anastrozole 1 MG TAB PO (09:40)
[2019-09-20] MEDS: Folic Acid 1 MG TAB 2 MG PO (09:40)
[2019-09-20] MEDS: Famotidine 20 MG TAB 40 MG PO (09:40)
[2019-09-20] MEDS: Loperamide 2 MG CAP PO ×3 (09:41→20:56)
[2019-09-20] MEDS: Ascorbic Acid 500 MG TAB PO ×2 (09:41→20:53)
[2019-09-20] MEDS: Ferrous Sulfate 325 MG TAB PO (09:41)
[2019-09-20] MEDS: Cyclobenzaprine 10 MG TAB PO ×2 (09:41→20:55)
[2019-09-20] MEDS: Ergocalciferol 50000 UNITS CAP PO (10:06)
[2019-09-20 10:57] VITALS: RESP 14
[2019-09-20] MEDS: clonazePAM 1 MG TAB 2 MG PO (20:53)
[2019-09-20] MEDS: Zolpidem 5 MG TAB 10 MG PO (20:53)
[2019-09-20] MEDS: Budesonide/Formoterol 160/4.5 6 GM 60 PUFF INH IH (21:08)
[2019-09-20] MEDS: Albuterol HFA 8 GM 60 PUFF INH IH (21:09)
[2019-09-21 02:45] VITALS: BP 107/65; PULSE 72; RESP 18; TEMP 36.6; O2SAT 90
[2019-09-21] MEDS: oxyCODONE 5 MG TAB PO ×3 (03:06→21:19)
[2019-09-21] MEDS: Metoprolol 25 MG TAB PO ×3 (06:50→21:20)
[2019-09-21] MEDS: Acetaminophen 325 MG TAB 650 MG PO ×3 (06:50→21:20)
[2019-09-21] MEDS: Albuterol HFA 8 GM 60 PUFF INH IH ×3 (10:04→21:18)
[2019-09-21] MEDS: Budesonide/Formoterol 160/4.5 6 GM 60 PUFF INH IH ×2 (10:05→21:18)
[2019-09-21 10:06] VITALS: RESP 14; RESP 9
[2019-09-21] MEDS: Sertraline 50 MG TAB 200 MG PO (11:19)
[2019-09-21] MEDS: Cyanocobalamin 100 MCG TABLET PO (11:19)
[2019-09-21] MEDS: Cyclobenzaprine 10 MG TAB PO ×2 (11:19→21:19)
[2019-09-21] MEDS: Ferrous Sulfate 325 MG TAB PO (11:19)
[2019-09-21] MEDS: Ascorbic Acid 500 MG TAB PO ×2 (11:19→21:19)
[2019-09-21] MEDS: Famotidine 20 MG TAB 40 MG PO (11:19)
[2019-09-21] MEDS: Anastrozole 1 MG TAB PO (11:20)
[2019-09-21] MEDS: Loperamide 2 MG CAP PO ×2 (11:20→21:19)
[2019-09-21] MEDS: Folic Acid 1 MG TAB 2 MG PO (11:20)
[2019-09-21] MEDS: Glucosamine 500 MG CAP PO ×2 (11:20→21:20)
[2019-09-21] MEDS: Methylphenidate 10 MG TAB PO ×2 (11:20→14:16)
--- NOTE | 2019-09-21 15:20 | PDOC.CMPRO ---
- If Service Date Differs Date of service: 09/21/19 Time of Service: 15:20 Care Management Progress Note S/O: Prema met with [employer] Business Analyst today and she assisted her in connecting her phone at the new apartment. The movers are coming to the hospital on Friday09/22/19 they will picked edge sewing machine operator the apartment and locker keys, they will also move her belongings in her room to the new apartment. CM has left the keys at the nurses station on medical surgical unit. The movers will need to bring Prema's commode to the new apartment so while she is waiting she will have it there. Prema's caregiver will start on Friday09/27/19 and the plan will be for her to discharge the same day. The deposits and rent have been paid, [facility] has signed the lease in addition to Prema. Prema new address will be [address] [place] [address] Prema will plan to be at the apartment while the movers are there. Prema will need new home health services which will be coordinated by CM. She will have community case management through [facility]. A: Prema is a 63 year old female admitted to SB1 P: Pream will plan to be discharged on Friday with new home health services. She will need new home health services with a new face to face, nursing, PT/OT and COMMUNICATION SIGNALS INTELLIGENCE. Resumption of home delivered meals coordinated by [facility] and RCT at time of discharge. CM will assist in completing the lifeline over the phone.
[2019-09-21] MEDS: clonazePAM 1 MG TAB 2 MG PO (21:18)
[2019-09-21] MEDS: Zolpidem 5 MG TAB 10 MG PO (21:19)
[2019-09-21] MEDS: Nystatin POWDER 60 GM JAR TP (21:20)
[2019-09-21 23:30] VITALS: BP 96/60; PULSE 78; RESP 20; TEMP 36.5; O2SAT 94
[2019-09-22 00:14] VITALS: RESP 14; RESP 9
[2019-09-22] MEDS: Metoprolol 25 MG TAB PO ×2 (06:24→20:54)
[2019-09-22] MEDS: Acetaminophen 325 MG TAB 650 MG PO ×2 (06:24→20:54)
[2019-09-22 07:59] VITALS: BP 93/48; PULSE 63; RESP 18; TEMP 36.8; O2SAT 99
[2019-09-22] MEDS: Anastrozole 1 MG TAB PO (08:42)
[2019-09-22] MEDS: Sertraline 50 MG TAB 200 MG PO (08:42)
[2019-09-22] MEDS: Famotidine 20 MG TAB 40 MG PO (08:42)
[2019-09-22] MEDS: Methylphenidate 10 MG TAB PO (08:42)
[2019-09-22] MEDS: oxyCODONE 5 MG TAB PO ×2 (08:42→18:56)
[2019-09-22] MEDS: Cyanocobalamin 100 MCG TABLET PO (08:42)
[2019-09-22] MEDS: Loperamide 2 MG CAP PO ×2 (08:42→20:54)
[2019-09-22] MEDS: Glucosamine 500 MG CAP PO ×2 (08:43→20:54)
[2019-09-22] MEDS: Folic Acid 1 MG TAB 2 MG PO (08:43)
[2019-09-22] MEDS: Ascorbic Acid 500 MG TAB PO ×2 (08:43→20:54)
[2019-09-22] MEDS: Ferrous Sulfate 325 MG TAB PO (08:43)
[2019-09-22] MEDS: Cyclobenzaprine 10 MG TAB PO ×2 (08:43→20:54)
[2019-09-22] MEDS: Budesonide/Formoterol 160/4.5 6 GM 60 PUFF INH IH ×2 (09:12→20:53)
[2019-09-22] MEDS: Albuterol HFA 8 GM 60 PUFF INH IH ×2 (09:13→20:53)
[2019-09-22 09:15] VITALS: RESP 14
[2019-09-22] MEDS: Ergocalciferol 50000 UNITS CAP PO (10:59)
--- NOTE | 2019-09-22 11:23 | NUR.NOTE ---
Nursing Note: Pt given outpatient dose of ritalin to take with her out on pass to set up her apartment. Approved by MD and Pharmacy.
--- NOTE | 2019-09-22 17:30 | CMACTNOTE_ITS ---
- If Service Date Differs Date of service: 09/22/19 Time of Service: 17:30 Care Management Activity Note S/O: Prema is anticipating moving in to her new apartment soon, with her expected move in date of 09/27/2019. The movers arrived today to gather her belongings and bring them to her new apartment. Prema met them there in order to ensure proper set up of the home in order for her to navigate freely through the home with her chair. She stated that she is happy to have her own place again, a nd is making plans in the community. She will have new orders for HH services, and will be followed by her community resource officer through the [facility] aging. A: Prema is a 63 year old female admitted to SB1 P: Prema will plan to be discharged on Friday with new home health services. She will need new home health services with a new face to face, nursing, PT/OT and TEXTILE DYER. Resumption of home delivered meals coordinated by [facility] and RCT at time of discharge. CM will assist in completing the lifeline over the phone.
[2019-09-22 20:10] VITALS: BP 101/58; PULSE 76; RESP 19; TEMP 36.9; O2SAT 94
[2019-09-22] MEDS: Zolpidem 5 MG TAB 10 MG PO (20:55)
[2019-09-22] MEDS: clonazePAM 1 MG TAB 2 MG PO (20:55)
[2019-09-23] MEDS: oxyCODONE 5 MG TAB PO ×5 (01:32→21:03)
[2019-09-23] MEDS: Acetaminophen 325 MG TAB 650 MG PO ×3 (06:48→21:03)
[2019-09-23] MEDS: Metoprolol 25 MG TAB PO ×3 (06:48→19:51)
[2019-09-23 06:50] VITALS: BP 100/60; RESP 14
[2019-09-23] MEDS: Famotidine 20 MG TAB 40 MG PO (08:58)
[2019-09-23] MEDS: Cyanocobalamin 100 MCG TABLET PO (08:59)
[2019-09-23] MEDS: Glucosamine 500 MG CAP PO ×2 (08:59→19:51)
[2019-09-23] MEDS: Folic Acid 1 MG TAB 2 MG PO (08:59)
[2019-09-23] MEDS: Ascorbic Acid 500 MG TAB PO ×2 (08:59→19:51)
[2019-09-23] MEDS: Methylphenidate 10 MG TAB PO ×2 (08:59→13:35)
[2019-09-23] MEDS: Cyclobenzaprine 10 MG TAB PO ×2 (08:59→19:51)
[2019-09-23] MEDS: Ferrous Sulfate 325 MG TAB PO (08:59)
[2019-09-23] MEDS: Loperamide 2 MG CAP PO ×3 (08:59→19:51)
[2019-09-23] MEDS: Sertraline 50 MG TAB 200 MG PO (09:00)
[2019-09-23] MEDS: Anastrozole 1 MG TAB PO (09:00)
[2019-09-23] MEDS: Normal Saline Flush 10 ML SYR IVP (09:00)
[2019-09-23] MEDS: Budesonide/Formoterol 160/4.5 6 GM 60 PUFF INH IH ×2 (09:11→19:50)
[2019-09-23] MEDS: Albuterol HFA 8 GM 60 PUFF INH IH ×2 (09:11→19:50)
[2019-09-23] MEDS: clonazePAM 1 MG TAB 2 MG PO (19:51)
[2019-09-23] MEDS: Zolpidem 5 MG TAB 10 MG PO (19:51)
[2019-09-23 20:00] VITALS: BP 91/61; PULSE 71; RESP 16; TEMP 36.2; O2SAT 95
[2019-09-23] MEDS: Milk of Magnesia 30 ML CUP PO (21:03)
[2019-09-24] MEDS: oxyCODONE 5 MG TAB PO ×4 (03:49→17:13)
[2019-09-24 06:50] VITALS: BP 1179/77; PULSE 67; RESP 16; TEMP 36.6; O2SAT 96
[2019-09-24] MEDS: Acetaminophen 325 MG TAB 650 MG PO ×3 (06:50→20:31)
[2019-09-24] MEDS: Metoprolol 25 MG TAB PO ×3 (06:51→20:31)
[2019-09-24] MEDS: Anastrozole 1 MG TAB PO (08:31)
[2019-09-24] MEDS: Normal Saline Flush 10 ML SYR IVP (08:31)
[2019-09-24] MEDS: Glucosamine 500 MG CAP PO ×2 (08:32→20:31)
[2019-09-24] MEDS: Cyanocobalamin 100 MCG TABLET PO (08:32)
[2019-09-24] MEDS: Loperamide 2 MG CAP PO ×3 (08:32→20:31)
[2019-09-24] MEDS: Cyclobenzaprine 10 MG TAB PO ×2 (08:32→20:31)
[2019-09-24] MEDS: Ferrous Sulfate 325 MG TAB PO (08:32)
[2019-09-24] MEDS: Methylphenidate 10 MG TAB PO ×2 (08:32→13:04)
[2019-09-24] MEDS: Famotidine 20 MG TAB 40 MG PO (08:32)
[2019-09-24] MEDS: Ascorbic Acid 500 MG TAB PO ×2 (08:32→20:31)
[2019-09-24] MEDS: Folic Acid 1 MG TAB 2 MG PO (08:33)
[2019-09-24] MEDS: Sertraline 50 MG TAB 200 MG PO (08:33)
[2019-09-24] MEDS: Ergocalciferol 50000 UNITS CAP PO (08:45)
[2019-09-24] MEDS: Albuterol HFA 8 GM 60 PUFF INH IH ×2 (10:39→20:30)
[2019-09-24] MEDS: Budesonide/Formoterol 160/4.5 6 GM 60 PUFF INH IH ×2 (10:39→20:30)
[2019-09-24 10:44] VITALS: RESP 14
[2019-09-24 10:45] VITALS: O2SAT 98
[2019-09-24 13:16] VITALS: BP 89/55; PULSE 71
[2019-09-24 19:42] LABS: Bilirubin Negative (Negative); Blood Trace-intact (Negative); Clarity Cloudy (Clear); Glucose Negative (Negative); Ketones Negative (Negative); Leukocyte Esterase Large (Negative); Nitrite Positive (Negative); Urobilinogen 0.2 EU/dL (Up TO 0.2); pH 6.5 (5-8)
[2019-09-24 19:50] LABS: Bacteria Many HPF (Negative); C & S Indicated? Yes; Crystals Negative HPF (Negative); Epithelial Cells Moderate HPF (Negative); Mucus Negative (Negative); WBC >50 HPF (0-5)
[2019-09-24 20:30] VITALS: BP 96/64; PULSE 73; RESP 14; RESP 16; TEMP 36.2; O2SAT 97
[2019-09-24] MEDS: Zolpidem 5 MG TAB 10 MG PO (20:31)
[2019-09-24] MEDS: clonazePAM 1 MG TAB 2 MG PO (20:31)
[2019-09-25] MEDS: oxyCODONE 5 MG TAB PO ×5 (01:09→21:22)
[2019-09-25] MEDS: Acetaminophen 325 MG TAB 650 MG PO ×3 (05:22→20:10)
[2019-09-25] MEDS: Metoprolol 25 MG TAB PO ×3 (05:23→20:10)
[2019-09-25 05:30] VITALS: BP 101/64; PULSE 66; RESP 17; TEMP 36.7; O2SAT 94
[2019-09-25] MEDS: Folic Acid 1 MG TAB 2 MG PO (07:50)
[2019-09-25] MEDS: Ascorbic Acid 500 MG TAB PO ×2 (07:50→20:09)
[2019-09-25] MEDS: Glucosamine 500 MG CAP PO ×2 (07:51→20:08)
[2019-09-25] MEDS: Famotidine 20 MG TAB 40 MG PO (07:51)
[2019-09-25] MEDS: Cyclobenzaprine 10 MG TAB PO ×2 (07:51→20:10)
[2019-09-25] MEDS: Anastrozole 1 MG TAB PO (07:51)
[2019-09-25] MEDS: Ferrous Sulfate 325 MG TAB PO (07:51)
[2019-09-25] MEDS: Normal Saline Flush 10 ML SYR IVP (07:52)
[2019-09-25] MEDS: Cyanocobalamin 100 MCG TABLET PO (07:52)
[2019-09-25] MEDS: Methylphenidate 10 MG TAB PO ×2 (07:52→14:10)
[2019-09-25] MEDS: Sertraline 50 MG TAB 200 MG PO (07:52)
[2019-09-25] MEDS: Loperamide 2 MG CAP PO ×3 (07:52→20:10)
[2019-09-25] MEDS: Budesonide/Formoterol 160/4.5 6 GM 60 PUFF INH IH ×2 (07:59→20:11)
[2019-09-25] MEDS: Albuterol HFA 8 GM 60 PUFF INH IH ×2 (08:00→17:58)
[2019-09-25] MEDS: Fosfomycin Tromethamine 3 GM PACKET PO (09:54)
[2019-09-25 13:40] VITALS: BP 99/68; PULSE 61; RESP 18; TEMP 36.8; O2SAT 99
[2019-09-25 19:30] VITALS: BP 112/64; PULSE 74; RESP 14; RESP 16; TEMP 36.9; O2SAT 95
[2019-09-25] MEDS: Zolpidem 5 MG TAB 10 MG PO (20:08)
[2019-09-25] MEDS: clonazePAM 1 MG TAB 2 MG PO (20:09)
[2019-09-26] MEDS: oxyCODONE 5 MG TAB PO ×5 (01:50→20:12)
[2019-09-26] MEDS: Acetaminophen 325 MG TAB 650 MG PO ×3 (05:34→20:00)
[2019-09-26] MEDS: Metoprolol 25 MG TAB PO ×3 (05:35→20:13)
[2019-09-26] MEDS: Albuterol HFA 8 GM 60 PUFF INH IH ×2 (08:05→20:02)
[2019-09-26] MEDS: Famotidine 20 MG TAB 40 MG PO (08:05)
[2019-09-26] MEDS: Budesonide/Formoterol 160/4.5 6 GM 60 PUFF INH IH ×2 (08:05→20:02)
[2019-09-26] MEDS: Methylphenidate 10 MG TAB PO ×2 (08:06→14:02)
[2019-09-26] MEDS: Folic Acid 1 MG TAB 2 MG PO (08:06)
[2019-09-26] MEDS: Sertraline 50 MG TAB 200 MG PO (08:06)
[2019-09-26] MEDS: Anastrozole 1 MG TAB PO (08:06)
[2019-09-26] MEDS: Cyclobenzaprine 10 MG TAB PO ×2 (08:06→20:01)
[2019-09-26] MEDS: Cyanocobalamin 100 MCG TABLET PO (08:06)
[2019-09-26] MEDS: Loperamide 2 MG CAP PO ×2 (08:06→14:02)
[2019-09-26] MEDS: Ascorbic Acid 500 MG TAB PO ×2 (08:06→20:01)
[2019-09-26] MEDS: Glucosamine 500 MG CAP PO ×2 (08:07→20:00)
[2019-09-26] MEDS: Normal Saline Flush 10 ML SYR IVP (08:07)
[2019-09-26] MEDS: Ferrous Sulfate 325 MG TAB PO (08:07)
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
--- NOTE | 2019-09-26 10:19 | CMPROGNOTE_ITS ---
- If Service Date Differs Date of service: 09/26/19 Time of Service: 10:19 Care Management Progress Note S/O: Prema complained of right hip pain, UA was done and she was treated for a UTI. Prema does continue to sit up in her wheelchair to sleep. CM provided education as to the risk of developing a decubitus related to pressure. Prema states that she has been having right hip discomfort and she feels that the chair helps with the discomfort. She also states due to frequent urination its easier for her to transfer from the chair to the toilet. Prema will be discharged home on Friday with community supports including home health nursing, PT, OT, SUPERVISOR FINISHING ROOM and [facility] CM support. She will have meals on wheels and her private caregiver will start on Friday. Prema will need an appointment with primary care for follow up hospital discharge. CM did contact [facility] she does not have any GI follow up for her colecystostomy drain. She will need follow up scheduled she will also need normal saline flushes for her drainage tube, CM to coordinate a prescription for saline and supplies. Prema will be transported via [employer] w/c van at time of discharge to be coordinated by CM. Prema reports her bed and equipment have been set up in the apartment and she states she feels ready for discharge. A: Prema is a 63 year old female admitted with pneumonia and transition to SB2 while awaiting placement or safe discharge plan. P: Discharge home on 09/27/19 via [employer] w/c van and new home health services for nursing, pt/ot and printing engineer. Meals on wheels and private caregivers through her choices for care highest needs.
[2019-09-26 13:55] VITALS: BP 90/58; PULSE 77; RESP 17; TEMP 36.8; O2SAT 99
[2019-09-26] MEDS: Zolpidem 5 MG TAB 10 MG PO (19:59)
[2019-09-26] MEDS: clonazePAM 1 MG TAB 2 MG PO (20:00)
[2019-09-26] MEDS: Mylanta Suspension 30 ML CUP PO (20:13)
[2019-09-26 20:15] VITALS: RESP 14
[2019-09-27] MEDS: oxyCODONE 5 MG TAB PO ×3 (00:03→10:33)
[2019-09-27] MEDS: Acetaminophen 325 MG TAB 650 MG PO (05:53)
[2019-09-27] MEDS: Metoprolol 25 MG TAB PO (06:00)
--- NOTE | 2019-09-27 07:00 | HOME_ITS ---
Home Ventilator Equipment Home care company [employer] Reason: Obstructive Sleep Apnea Make: ResMed Model: REMStar Mask type: Face mask Mask size: Small Mode: BiPAP Settings: 14/9 Oxygen bleed in (lpm): 2 Condition: Good Date last checked: 09/27/19 Year of last sleep study: Compliance Daily Comments:
--- NOTE | 2019-09-27 07:59 | PDOC.HHF2F_ITS ---
Home Health Certification Home Health Certification: 1. Encounter Date and Reason I certify that CHANTELLE DAIGLE was seen by Emerald Oswald on 09/27/19 and that I had a [id number] encounter with this patient that meets the physician face to face encounter requirements. 2. Clinical Findings Supporting Skilled Need and Homebound Status I certify that home health services are medically necessary, include either intermittent alf and/or physical/speech therapy, and that this patient is homebound in that absences from the home require considerable and taxing effort and are infrequent or of short duration, or are attributable to the need to receive medical care. [X] (a) Attached documentation from encounter provides clinical findings supporting skilled need and homebound status (including what assistance patient requires to leave the home). The encounter with the patient was in whole, or in part, for the following medical condition, which is the primary reason for home health care: PNEUMONIA Senior Care: Would benefit from nursing services to help with, frederick care and med management. Physical Therapy: Would benefit from PT/OT and NUCLEAR WEAPONS MECHANICAL SPECIALIST to regain strength and continue to become stronger. Speech Therapy: Homebound: Patient unable to leave house unassisted due to being homebound. 3. Certification and Authentication I certify that I composed the above information based on my clinical judgement relating to this patient's medical condition and, if applicable, clinical findings communicated to me by the NPP or inpatient physician who performed the Home Health Referral. All further orders will be obtained through (Community Based Physician - PCP)
[2019-09-27] MEDS: Budesonide/Formoterol 160/4.5 6 GM 60 PUFF INH IH (08:05)
[2019-09-27] MEDS: Methylphenidate 10 MG TAB PO (08:06)
[2019-09-27] MEDS: Famotidine 20 MG TAB 40 MG PO (08:06)
[2019-09-27] MEDS: Anastrozole 1 MG TAB PO (08:06)
[2019-09-27] MEDS: Albuterol HFA 8 GM 60 PUFF INH IH (08:06)
[2019-09-27] MEDS: Sertraline 50 MG TAB 200 MG PO (08:06)
[2019-09-27] MEDS: Glucosamine 500 MG CAP PO (08:07)
[2019-09-27] MEDS: Cyclobenzaprine 10 MG TAB PO (08:07)
[2019-09-27] MEDS: Loperamide 2 MG CAP PO (08:07)
[2019-09-27] MEDS: Folic Acid 1 MG TAB 2 MG PO (08:07)
[2019-09-27] MEDS: Normal Saline Flush 10 ML SYR IVP ×2 (08:07→10:34)
[2019-09-27] MEDS: Cyanocobalamin 100 MCG TABLET PO (08:07)
[2019-09-27] MEDS: Ascorbic Acid 500 MG TAB PO (08:07)
[2019-09-27] MEDS: Ferrous Sulfate 325 MG TAB PO (08:08)
[2019-09-27 09:39] VITALS: RESP 14
[2019-09-27] MEDS: Ergocalciferol 50000 UNITS CAP PO (10:10)
== END 2019-09-27 13:03 | disposition home or self-care (01) | DRG 193 ==
PROVIDERS: Family Medicine; Internal Medicine; Nurse Practitioner; Admitting Provider Internal Medicine; PCP Family Medicine; Visit Provider Internal Medicine
DX: J18.9 Pneumonia, unspecified organism (principal); A41.9 Sepsis, unspecified organism; I47.1 Supraventricular tachycardia; I50.32 Chronic diastolic (congestive) heart failure; Z68.41 Body mass index [BMI] 40.0-44.9, adult; N39.0 Urinary tract infection, site not specified; Z16.12 Extended spectrum beta lactamase (ESBL) resistance; T85.518A Breakdown (mechanical) of other gastrointestinal prosthetic devices, implants and grafts, initial encounter; A04.72 Enterocolitis due to Clostridium difficile, not specified as recurrent; I95.9 Hypotension, unspecified; R07.89 Other chest pain; M17.0 Bilateral primary osteoarthritis of knee; I48.0 Paroxysmal atrial fibrillation; B96.89 Other specified bacterial agents as the cause of diseases classified elsewhere; B96.20 Unspecified Escherichia coli [E. coli] as the cause of diseases classified elsewhere; F41.9 Anxiety disorder, unspecified; Y95 Nosocomial condition; G47.33 Obstructive sleep apnea (adult) (pediatric); I50.812 Chronic right heart failure; F32.9 Major depressive disorder, single episode, unspecified; F60.3 Borderline personality disorder; J44.9 Chronic obstructive pulmonary disease, unspecified; Z87.891 Personal history of nicotine dependence; Z99.81 Dependence on supplemental oxygen; Z99.3 Dependence on wheelchair; E66.01 Morbid (severe) obesity due to excess calories; Z55.0 Illiteracy and low-level literacy; Z60.2 Problems related to living alone; Z98.84 Bariatric surgery status; K21.9 Gastro-esophageal reflux disease without esophagitis; Z87.440 Personal history of urinary (tract) infections; I25.10 Atherosclerotic heart disease of native coronary artery without angina pectoris; Z93.4 Other artificial openings of gastrointestinal tract status; Z75.1 Person awaiting admission to adequate facility elsewhere; Z88.8 Allergy status to other drugs, medicaments and biological substances; F98.8 Other specified behavioral and emotional disorders with onset usually occurring in childhood and adolescence; R15.9 Full incontinence of feces; G89.29 Other chronic pain; Z79.891 Long term (current) use of opiate analgesic; R46.0 Very low level of personal hygiene
CPT/HCPCS: 36415; 36416; 76770; 80048; 80076; 84145; 85027; 87040; 87077; 87449; 94640; 97110; 97162; 97530; 99232; 99239; 99253; 99254; 99255; 99306; 99307; 99308; 99309; 99316; NC; 81003; 81015; 83735; 84484; 85025; 87070; 87086; 87186; 87205; 87324; 87798; A0425; A0428; J0696; J1040; J1644; J3490; J7620

== ENCOUNTER 2019-10-11 14:51 | Emergency (ER) | payer MEDICAID, SELFPAY ==
[2019-10-11 14:52] VITALS: PULSE 71; RESP 16; RESP 18; TEMP 36.6; O2SAT 100
[2019-10-11 14:58] VITALS: BP 102/59
--- NOTE | 2019-10-11 16:56 | RESPIRATORY ---
10/11/19-Pt here due to her wheelchair possibly malfunctioning and her O2 concentrator not working per pt report. RT contacted [employer] and spoke with Du, Condenser Operator who states [employer] will be down to swap our concentrator.
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
--- NOTE | 2019-10-13 16:14 | ED.GENADUL_ITS ---
Discharge Plan Disposition Patient Disposition: HOME Condition: Stable Discharge Details Chief Complaint: GenMedical Clinical Impression: Encounter for wheelchair assessment Primary Care Provider: Sera Gutiérrez ED Provider: Dagmar Melissa Home Meds and New Rx's Prescriptions: No Action ferrous sulfate 325 mg (65 mg iron) Tablet 325 mg PO DAILY RF: 0 cyanocobalamin (vitamin B-12) [Vitamin B-12] 100 MCG tablet 100 mcg PO DAILY RF: 0 ergocalciferol (vitamin D2) [Vitamin D2] 50,000 UNITS capsule 50,000 units PO DIRECTED RF: 0 nitroglycerin [Nitrostat] 0.4 mg Tablet, Sublingual 0.4 mg sublingual .Q 5 MIN PRN CP PRN (Reason: chest pain) RF: 0 folic acid 1 mg Tablet 2 mg PO DAILY RF: 0 calcium carbonate-vitamin D3 600 mg(1,500mg) -400 unit Tablet 1 tab PO DAILY RF: 0 cyclobenzaprine 10 mg Tablet 10 mg PO BID Qty: 60 RF: 0 anastrozole [Arimidex] 1 mg Tablet 1 mg PO DAILY Qty: 30 RF: 0 loperamide 2 mg Capsule 2 mg PO TID Qty: 90 RF: 0 clonazepam 1 mg Tablet 2 mg PO HS Qty: 30 RF: 0 famotidine 20 mg Tablet 40 mg PO DAILY Qty: 30 RF: 0 ascorbic acid (vitamin C) [Vitamin C] 500 mg Tablet 500 mg PO BID Qty: 60 RF: 0 ferrous sulfate 325 mg (65 mg iron) Tablet 325 mg PO DAILY Qty: 30 RF: 0 lidocaine [Lidoderm] 5 % Adhesive Patch,Medicated 1 patch topical DIRECTED Qty: 30 RF: 0 glucosamine sulfate 500 mg Capsule 500 mg PO BID Qty: 60 RF: 0 nitroglycerin [Nitrostat] 0.4 mg Tablet, Sublingual 0.4 mg sublingual Q5 MIN PRN X3 PRN (Reason: chest pain) Qty: 30 RF: 0 docusate sodium [Colace] 100 mg Capsule 100 mg PO TID PRN PRNQty: 60 RF: 0 folic acid 1 mg Tablet 2 mg PO DAILY Qty: 30 RF: 0 ergocalciferol (vitamin D2) [Vitamin D2] 50,000 unit Capsule 50,000 units PO MoWeFr@1000 Qty: 12 RF: 0 albuterol sulfate [Ventolin HFA] 90 mcg/actuation Hfa Aerosol Inhaler 2 puff inhalation Q4H PRN PRN (Reason: Shortness Of Breath) Qty: 1 RF: 0 oxycodone 5 mg Tablet 5 - 10 mg PO Q4H PRN PRNQty: 30 RF: 0 metoprolol tartrate 25 mg Tablet 25 mg PO Q8H Qty: 90 RF: 0 Symbicort 160-4.5 mcg/actuation Hfa Aerosol Inhaler 2 puff inhalation BID Qty: 6 RF: 0 Bio-K plus 50 billion cell Capsule,Delayed Release(Dr/Ec) 1 cap PO DAILY Qty: 30 RF: 0 Narcan 4 mg/actuation spray,non-aerosol 4 mg KRISHNA Q2M Qty: 2 RF: 0 methylphenidate HCl 10 mg tablet 10 mg PO BID@08,14 Qty: 10 RF: 0 zolpidem [Ambien] 10 mg tablet 10 mg PO QHS Qty: 5 RF: 0 sertraline 100 mg tablet 200 mg PO DAILY Qty: 60 RF: 0 Discharge Instructions Additional Instructions: Drink plenty of fluids. Use your wheelchair as previously discussed. Take your daily medications. Follow-up with wheelchair company tomorrow at home. Follow-up with case specialist. Return for any worsening or concerns sooner if needed as discussed Discharge Data Discharge Date/Time-TO BE ENTERED AT DEPARTURE: 10/11/19 16:55 Medical Decision Making Is a 64-year-old patient who is wheelchair-bound who presents to the emergency room via EMS for safety concern as her wheelchair was reportedly not functioning in her home. Patient was discharged from greater than 100 days in the hospital in the last 2 weeks. Care managers know this patient well. Patient denies any medical concerns or complaints at this time. EMS was called as her oxygen was alarming, per EMS oxygen was working without difficulty although they question if the alarm was triggered because it was unplugged from the wall. While evaluating patient for the alarm she was complaining that her wheelchair was not functioning and she requires her wheelchair to function fully to live alone. Patient was able to be mobile in her wheelchair but she found her wheelchair was not reclining. Patient typically sleeps in her wheelchair. government contracts manager at the bedside and has already spoken with this patient extensively. They do have a plan of care to have the wheelchair company evaluate her for a new wheelchair tomorrow, provide a temporary wheelchair in the meantime. Patient denies any significant medical concerns at this time. Patient's physical exam does not reveal any obvious acute findings although patient does have significant chronic disease. Patient is obese, has chronic pain syndrome, history of anxiety, asthma, A. fib, breast cancer, heart failure, DJD, history of gastric bypass surgery, history of GI bleed, history of SVT, history of DVT, IBS, obstructive sleep apnea, osteopenia, she is oxygen dependent, A. fib, peptic ulcerative disease, right heart failure, tricuspid regurg. Patient reports she has been taking her medications without difficulty. Patient is primarily concerned today with the status of her wheelchair. I have offered this patient admission to the hospital for safety purpose however patient would prefer to go home sleep in her current wheelchair and be evaluated for new wheelchair tomorrow in her home. Patient does not feel she needs admission to the hospital at this time. transportation operations manager who is very familiar with the patient reports she did have recent physical therapy evaluations prior to her discharge home at that time she was able to transfer to a bed. Patient reports at this time there are several personal belongings on her bed which prohibit her from using her bed. Again patient prefers discharge home at this time although was again offered admission to the hospital. transportation operations manager will follow up with the patient in the next 24 hours. HPI General Date/Time Provider Initiated Documentation: 10/11/19 15:07 . HPI Narrative: Is a 64-year-old woman who presents for concerns of safety per EMS. Patient called EMS to the house as her oxygen was alarming. Per EMS her oxygen concentrator may have been alarming and was unplugged. EMS was concerned as the patient was reporting her wheelchair was not functioning properly. Patient is wheelchair dependent and lives alone therefore EMS was concerned regarding patient safety and transferred her to the emergency room. At this time patient has no medical concerns or complaints. Patient denies any significant change from her baseline. Patient is well-known to care managers and recently was discharged from the hospital after over 100 days in the hospital inn a swing bed. Patient has been eating and drinking without difficulty. Is moving bowels normally. Is urinating normally. Patient denies any recent falls. Per patient and progressive care unit registered nurse patient has been sleeping in her wheelchair for several years this is her most comfortable position. Patient is concerned as her wheelchair will not recline back. Otherwise patient's wheelchair is able to function to get her around through her home Related Data Home Medications Medication Instructions Recorded Confirmed cyanocobalamin (vitamin B-12) 100 mcg PO DAILY 05/30/17 06/02/19 [Vitamin B-12] ergocalciferol (vitamin D2) 50,000 units PO DIRECTED 05/30/17 06/02/19 [Vitamin D2] ferrous sulfate 325 mg PO DAILY 10/20/18 06/02/19 calcium carbonate-vitamin D3 1 tab PO DAILY 05/28/19 06/02/19 folic acid 2 mg PO DAILY 05/28/19 06/02/19 nitroglycerin [Nitrostat] 0.4 mg SUBLINGUAL .Q 5 MIN PRN CP 05/28/19 06/02/19 PRN L. acidophilus,casei,rhamnosus 1 cap PO DAILY #30 cap 09/26/19 [Bio-K plus] albuterol sulfate [Ventolin HFA] 2 puff INHALATION Q4H PRN PRN #1 g 09/26/19 anastrozole [Arimidex] 1 mg PO DAILY #30 tab 09/26/19 ascorbic acid (vitamin C) [Vitamin 500 mg PO BID #60 tab 09/26/19 C] budesonide-formoterol [Symbicort] 2 puff INHALATION BID #6 gm 09/26/19 clonazepam 2 mg PO HS #30 tab 09/26/19 cyclobenzaprine 10 mg PO BID #60 tab 09/26/19 docusate sodium [Colace] 100 mg PO TID PRN PRN #60 cap 09/26/19 ergocalciferol (vitamin D2) 50,000 units PO MoWeFr@1000 #12 cap 09/26/19 [Vitamin D2] famotidine 40 mg PO DAILY #30 tab 09/26/19 ferrous sulfate 325 mg PO DAILY #30 tab 09/26/19 folic acid 2 mg PO DAILY #30 tab 09/26/19 glucosamine sulfate 500 mg PO BID #60 cap 09/26/19 lidocaine [Lidoderm] 1 patch TOPICAL DIRECTED #30 ea 09/26/19 loperamide 2 mg PO TID #90 cap 09/26/19 metoprolol tartrate 25 mg PO Q8H #90 tab 09/26/19 naloxone [Narcan] 4 mg KRISHNA Q2M #2 each 09/26/19 nitroglycerin [Nitrostat] 0.4 mg SUBLINGUAL Q5 MIN PRN X3 09/26/19 PRN #30 tab oxycodone 5 - 10 mg PO Q4H PRN PRN #30 tab 09/26/19 methylphenidate HCl 10 mg PO BID@08,14 #10 tab 09/27/19 sertraline 200 mg PO DAILY #60 tab 09/27/19 zolpidem [Ambien] 10 mg PO QHS #5 tab 09/27/19 Previous Rx's Medication Instructions Recorded L. acidophilus,casei,rhamnosus 1 cap PO DAILY #30 cap 09/26/19 [Bio-K plus] albuterol sulfate [Ventolin HFA] 2 puff INHALATION Q4H PRN PRN #1 g 09/26/19 anastrozole [Arimidex] 1 mg PO DAILY #30 tab 09/26/19 ascorbic acid (vitamin C) [Vitamin 500 mg PO BID #60 tab 09/26/19 C] budesonide-formoterol [Symbicort] 2 puff INHALATION BID #6 gm 09/26/19 clonazepam 2 mg PO HS #30 tab 09/26/19 cyclobenzaprine 10 mg PO BID #60 tab 09/26/19 docusate sodium [Colace] 100 mg PO TID PRN PRN #60 cap 09/26/19 ergocalciferol (vitamin D2) 50,000 units PO MoWeFr@1000 #12 cap 09/26/19 [Vitamin D2] famotidine 40 mg PO DAILY #30 tab 09/26/19 ferrous sulfate 325 mg PO DAILY #30 tab 09/26/19 folic acid 2 mg PO DAILY #30 tab 09/26/19 glucosamine sulfate 500 mg PO BID #60 cap 09/26/19 lidocaine [Lidoderm] 1 patch TOPICAL DIRECTED #30 ea 09/26/19 loperamide 2 mg PO TID #90 cap 09/26/19 metoprolol tartrate 25 mg PO Q8H #90 tab 09/26/19 naloxone [Narcan] 4 mg KRISHNA Q2M #2 each 09/26/19 nitroglycerin [Nitrostat] 0.4 mg SUBLINGUAL Q5 MIN PRN X3 09/26/19 PRN #30 tab oxycodone 5 - 10 mg PO Q4H PRN PRN #30 tab 09/26/19 methylphenidate HCl 10 mg PO BID@08,14 #10 tab 09/27/19 sertraline 200 mg PO DAILY #60 tab 09/27/19 zolpidem [Ambien] 10 mg PO QHS #5 tab 09/27/19 Allergies Allergy/AdvReac Type Severity Reaction Status Date / Time haloperidol Allergy Severe seizure Unverified 10/13/19 14:37 cephalexin monohydrate Allergy Mild Unverified 10/13/19 14:37 [From Keflex] ciprofloxacin [From Cipro] Allergy Mild Hives Unverified 10/13/19 14:37 dextroamphetamine Allergy Unknown Unverified 10/13/19 14:37 doxylamine Allergy Unknown Unverified 10/13/19 14:37 eszopiclone [From Lunesta] Allergy Unknown Unverified 10/13/19 14:37 Penicillins Allergy Unknown Unverified 10/13/19 14:37 pseudoephedrine Allergy Unknown Unverified 10/13/19 14:25 Sulfa (Sulfonamide Allergy Unknown Unverified 10/13/19 14:37 Antibiotics) trazodone Allergy Unknown Unverified 10/13/19 14:37 venlafaxine HCl AdvReac Severe crazy Unverified 10/13/19 14:37 [From Effexor] dextromethorphan HBr AdvReac Intermediate muscle Unverified 10/13/19 14:37 [From NyQuil] twitch doxylamine succinate AdvReac Intermediate muscle Unverified 10/13/19 14:37 [From NyQuil] twitch omeprazole AdvReac Intermediate Diarrhea Unverified 10/13/19 14:37 pseudoephedrine HCl AdvReac Intermediate muscle Unverified 10/13/19 14:37 [From NyQuil] twitch chlorpromazine HCl AdvReac passes out Unverified 10/13/19 14:37 [From Thorazine] General Stated Complaint: GenMedical GRISELDA: 3 Review of Systems All systems reviewed & are unremarkable except as noted in HPI and below Constitutional Constitutional: Denies headache(s) and Denies malaise ENT Ears, Nose, Mouth, and Throat: Denies headache(s) Cardiovascular Cardiovascular: Denies dyspnea Respiratory Respiratory: Denies cough and Denies dyspnea Gastrointestinal Gastrointestinal: Denies change in bowel habits, Denies nausea and Denies vomiting Genitourinary Genitourinary: Denies dysuria Neurologic Neurologic: Denies headache(s) [facility] Medical History ADD (attention deficit disorder) Angina at rest Anxiety (Chronic) Asthma Atrial fibrillation (Chronic) Atrial fibrillation Bilateral cataracts (Chronic) Breast cancer Chest pain, atypical Chronic back pain (Chronic) Chronic pain Chronic rhinitis Cirrhosis of liver Compression fracture of spine Decreased visual acuity Depression (Chronic) Depression Diastolic heart failure (Chronic) Diastolic heart failure DJD (degenerative joint disease) (Chronic) Gastric bypass status for obesity GI (gastrointestinal bleed) Goals of care, counseling/discussion (Acute) History of DVD (Chronic) History of paroxysmal supraventricular tachycardia History of PSVT (paroxysmal supraventricular tachycardia) (Chronic) Hx of deep venous thrombosis Hyperparathyroidism , secondary, non-renal Hypertension IBS (irritable bowel syndrome) Illiterate (Acute) Insomnia Morbid obesity Morbid obesity with BMI of 45.0-49.9, adult (Chronic) STACEY (obstructive sleep apnea) (Chronic) STACEY (obstructive sleep apnea) Osteoarthritis Osteopenia Oxygen dependent Paroxysmal atrial fibrillation (Chronic) Rate controlled on metoprolol. PUD (peptic ulcer disease) Pulmonary HTN Right heart failure with reduced right ventricular function (Chronic) Superficial thrombophlebitis Tricuspid regurgitation Social History Smoking/Tobacco Use Status: Former Tobacco Use Second Hand Exposure: No Alcohol Intake: never Drug use: Never Substance use type: does not use Caregiver/Support person: No Household members: none Housing: apartment Number of Children: 2 number of grandchildren: 1 Communication Needs: Cannot Read Education Level: middle school Do you need help understanding health information?: Always Do you feel safe at home: Yes Do you feel safe in your relationship?: Yes Exam Narrative Exam Narrative: CONST: Obese, in no acute distress. Well hydrated. Alert and alert. HENMT: Head nomocephalic, normal to inspection. Atraumatic. Hearing grossly normal. EYES: General normal appearance. Alignment normal. Eyelids normal. Conjunctiva normal. NECK: Normal visual inspection. FROM. Trachea midline. No Midline tenderness. CHEST: Normal insepection of the chest. RESP: Normal respiratory effort. Speaking full sentences. No cough. No audible wheezing. No retractions. Breath sounds clear and equal in all lung martinez. No rales, rhonchi or wheezing CARDIO: No JVD. Regular rate and rhythm. MUSCULOSKELETAL: Normal Gait. Bilateral lower extremity edema, per patient baseline. SKIN: Normal. Dry. No rashes. NEURO: Alert and awake. Speech clear. PSYCH: Normal affect. Cooperative. Course Vital Signs Vital signs: Vital Signs Temperature 36.6 C 10/11/19 14:52 Pulse 71 10/11/19 14:52 Respiratory Rate 16 10/11/19 14:52 Pulse Oximetry 100 10/11/19 14:52 Temperature 36.6 C 10/11/19 14:52 Temperature Source Temporal Artery Scan 10/11/19 14:52 Pulse 71 10/11/19 14:52 Respiratory Rate 18 10/11/19 14:52 Respiratory Effort Non-Labored 10/11/19 14:52 Respiratory Depth Normal 10/11/19 14:52 Blood Pressure 102/59 L 10/11/19 14:58 Blood Pressure Position Sitting 10/11/19 14:52 Pulse Oximetry 100 10/11/19 14:52 Oxygen Delivery Method Nasal Cannula 10/11/19 14:52 Oxygen Flow Rate 2 10/11/19 14:52 Pain Level 0 10/11/19 14:52
== END 2019-10-11 16:55 | disposition home or self-care (01) ==
PROVIDERS: Emergency Provider Physician Assistant; PCP Family Medicine
DX: I50.9 Heart failure, unspecified (principal); Z99.81 Dependence on supplemental oxygen; Z46.89 Encounter for fitting and adjustment of other specified devices; Z99.3 Dependence on wheelchair; I11.0 Hypertensive heart disease with heart failure
CPT/HCPCS: 99281

== ENCOUNTER 2019-10-13 14:20 | Emergency (ER) | payer MEDICAID, SELFPAY ==
[2019-10-13] VITALS (25 sets, daily range): BP systolic 86–106; BP diastolic 49–64; PULSE 56–91; RESP 13–20; TEMP 37.1; O2SAT 95–100
--- NOTE | 2019-10-13 14:24 | CMPROGNOTE_ITS ---
Care Management Progress Note Tracey Monica: [facility] CM called to notify that Prema would be coming to the ER due to bringing up green bile, increased pain and increased diarrhea. Tracey reported Soledad RN of [facility] was present and recommending Prema be sent to [facility] and Prema was requesting to go to [facility] as well. Tracey reported the request was made to EMS to bring Prema to [facility] but after making a few calls the [facility] responder reported that Prema would have to be seen at the nearest ER at this time. CM notified [facility] ED of Prema incoming and spoke with Mohinder, and Dr. Hernandez. Tracey called back to report she would require notification of disposition due to multiple RCT transports coordinated for tomorrow. Tracey reported her hopes were for Prema to be transferred to [facility] as well. Tracey also shared that she would like Prema to get consistent message from all providers that it would benefit her to accept full service supports from [facility] as she is permitted 37hrs/wk (13 Tactical Air Defense Controller, 24 care) and is utilizing Judith for 20 hours without good result. Per Tracey, Prema is refusing [facility] besides RN at this time. CM agreed to discuss with Lead: Ivelisse and then notified Ivelisse of above.
--- NOTE | 2019-10-13 14:24 | PDOC.ERCMPRO ---
Care Management Progress Note Tracey Monica: COA CM called to notify that Prema would be coming to the ER due to bringing up green bile, increased pain and increased diarrhea. Tracey reported Soledad RN of [facility] was present and recommending Prema be sent to [facility] and Prema was requesting to go to [facility] as well. Tracey reported the request was made to EMS to bring Prema to [facility] but after making a few calls the [facility] responder reported that Prema would have to be seen at the nearest ER at this time. CM notified [facility] ED of Prema incoming and spoke with Mohinder, and Dr. Hernandez. Tracey called back to report she would require notification of disposition due to multiple RCT transports coordinated for tomorrow. Tracey reported her hopes were for Prema to be transferred to [facility] as well. Tracey also shared that she would like Prema to get consistent message from all providers that it would benefit her to accept full service supports from [facility] as she is permitted 37hrs/wk (13 Dry Boss, 24 care) and is utilizing Judith for 20 hours without good result. Per Tracey, Prema is refusing [facility] besides RN at this time. CM agreed to discuss with Lead: Ivelisse and then notified Ivelisse of above.
--- NOTE | 2019-10-13 14:37 | ED.GENADUL_ITS ---
Discharge Plan Disposition Patient Disposition: HOME Condition: Stable Discharge Details Chief Complaint: Abd Prob Clinical Impression: Chronic pain, Abdominal pain Primary Care Provider: Sera Gutiérrez ED Provider: Morales Conte Home Meds and New Rx's Prescriptions: Continued cyanocobalamin (vitamin B-12) [Vitamin B-12] 100 MCG tablet 100 mcg PO DAILY RF: 0 calcium carbonate-vitamin D3 600 mg(1,500mg) -400 unit Tablet 1 tab PO DAILY RF: 0 cyclobenzaprine 10 mg Tablet 10 mg PO BID Qty: 60 RF: 0 anastrozole [Arimidex] 1 mg Tablet 1 mg PO DAILY Qty: 30 RF: 0 loperamide 2 mg Capsule 2 mg PO TID Qty: 90 RF: 0 clonazepam 1 mg Tablet 2 mg PO HS Qty: 30 RF: 0 famotidine 20 mg Tablet 40 mg PO DAILY Qty: 30 RF: 0 ascorbic acid (vitamin C) [Vitamin C] 500 mg Tablet 500 mg PO BID Qty: 60 RF: 0 ferrous sulfate 325 mg (65 mg iron) Tablet 325 mg PO DAILY Qty: 30 RF: 0 lidocaine [Lidoderm] 5 % Adhesive Patch,Medicated 1 patch topical DIRECTED Qty: 30 RF: 0 glucosamine sulfate 500 mg Capsule 500 mg PO BID Qty: 60 RF: 0 nitroglycerin [Nitrostat] 0.4 mg Tablet, Sublingual 0.4 mg sublingual Q5 MIN PRN X3 PRN (Reason: chest pain) Qty: 30 RF: 0 docusate sodium [Colace] 100 mg Capsule 100 mg PO TID PRN PRNQty: 60 RF: 0 folic acid 1 mg Tablet 2 mg PO DAILY Qty: 30 RF: 0 ergocalciferol (vitamin D2) [Vitamin D2] 50,000 unit Capsule 50,000 units PO MoWeFr@1000 Qty: 12 RF: 0 albuterol sulfate [Ventolin HFA] 90 mcg/actuation Hfa Aerosol Inhaler 2 puff inhalation Q4H PRN PRN (Reason: Shortness Of Breath) Qty: 1 RF: 0 oxycodone 5 mg Tablet 5 - 10 mg PO Q4H PRN PRNQty: 30 RF: 0 metoprolol tartrate 25 mg Tablet 25 mg PO Q8H Qty: 90 RF: 0 Symbicort 160-4.5 mcg/actuation Hfa Aerosol Inhaler 2 puff inhalation BID Qty: 6 RF: 0 Bio-K plus 50 billion cell Capsule,Delayed Release(Dr/Ec) 1 cap PO DAILY Qty: 30 RF: 0 Narcan 4 mg/actuation spray,non-aerosol 4 mg KRISHNA Q2M Qty: 2 RF: 0 methylphenidate HCl 10 mg tablet 10 mg PO BID@08,14 Qty: 10 RF: 0 zolpidem [Ambien] 10 mg tablet 10 mg PO QHS Qty: 5 RF: 0 sertraline 100 mg tablet 200 mg PO DAILY Qty: 60 RF: 0 aspirin [Aspir-81] 81 mg Tablet,Delayed Release (Dr/Ec) 81 mg PO DAILY RF: 0 Discharge Instructions Instructions: Abdominal Pain (ED) Additional Instructions: follow up with [facility] interventional radiology as scheduled tomorrow. follow up with your primary care provider within 1-2 weeks if you feel you are becoming more ill, have difficulty breathing or high fevers return to the emergency department Medical Decision Making 64 yo female with hx of Ascending Cholangitis, treated at [facility], with evidence of septic shock s/p biliary drain that still remains in place and was last changed on 04/28/2019. She also has a Past Medical History of Borderline Personality Disor liliane, Morbid Obesity, Breast Ca, CAD, COPD, STACEY, PHTN with severe TR, Chronic Diastolic and Right sided CHF, and GERD comes in with increased abdominal pain for a day in the upper abdomen. Denies fevers, vomit, has had a cough, no rashes. She has soft abdomen with tenderness throughout though more in the upper abdomen with biliary drain in place draining serosanguinous material. Given her history will obtain lab work and imaging to eval for entities such as pna, pancreatitis, and pneumoperitoneum and monitor. pt's lab work shows no significant acute pathology. Her UA shows positive nitrites so will tx this. CT shows no acute findings per Dr. Almonte except for possible new compression fx but pt denies any back pain so doubt acute fx. She has mild epigastric tendneress. Do not feel she requires admission at this time. She has f/u with IR tomorrow for drain eval, return precautions given Differential Diagnosis Differential Diagnosis: pancreatitis, ascending cholangitis, pna Imaging Data Radiologic Study: Attestation: I personally reviewed and interpreted this imaging study as follows: Imaging: CT Scan Radiologist's impression: MPRESSION: New mild compression fracture of the superior endplate of L1. No change in biliary drainage catheter. Multiple other chronic findings are also unchanged. No bowel obstruction. Lab Data Lab results reviewed: Yes I reviewed the patient's lab results. HPI General Mode of arrival: ambulatory . Date/Time Provider Initiated Documentation: 10/13/19 14:21 . Limitations to Documentation: no limitations . Information obtained by: patient . History of Present Illness 64 year old F presents to the emergency department with the chief complaint of abdominal pain, described as moderate and severe, Quality is described as stabbing, and is localized to the abdomen. Patient reports no radiation. Patient started experiencing this day(s) (1) and it has been constant. No relieving factors improve symptom(s), No exacerbating factors reported . Patient notes no other symptoms.. Patient did receive the following treatments prior to arrival, none Related Data Home Medications Medication Instructions Recorded Confirmed cyanocobalamin (vitamin B-12) 100 mcg PO DAILY 05/30/17 10/13/19 [Vitamin B-12] calcium carbonate-vitamin D3 1 tab PO DAILY 05/28/19 10/13/19 Bio-K plus 1 cap PO DAILY #30 cap 09/26/19 10/13/19 Narcan 4 mg KRISHNA Q2M #2 each 09/26/19 10/13/19 Symbicort 2 puff INHALATION BID #6 gm 09/26/19 10/13/19 albuterol sulfate [Ventolin HFA] 2 puff INHALATION Q4H PRN PRN #1 g 09/26/19 10/13/19 anastrozole [Arimidex] 1 mg PO DAILY #30 tab 09/26/19 10/13/19 ascorbic acid (vitamin C) [Vitamin 500 mg PO BID #60 tab 09/26/19 10/13/19 C] clonazepam 2 mg PO HS #30 tab 09/26/19 10/13/19 cyclobenzaprine 10 mg PO BID #60 tab 09/26/19 10/13/19 docusate sodium [Colace] 100 mg PO TID PRN PRN #60 cap 09/26/19 10/13/19 ergocalciferol (vitamin D2) 50,000 units PO MoWeFr@1000 #12 cap 09/26/19 10/13/19 [Vitamin D2] famotidine 40 mg PO DAILY #30 tab 09/26/19 10/13/19 ferrous sulfate 325 mg PO DAILY #30 tab 09/26/19 10/13/19 folic acid 2 mg PO DAILY #30 tab 09/26/19 10/13/19 glucosamine sulfate 500 mg PO BID #60 cap 09/26/19 10/13/19 lidocaine [Lidoderm] 1 patch TOPICAL DIRECTED #30 ea 09/26/19 10/13/19 loperamide 2 mg PO TID #90 cap 09/26/19 10/13/19 metoprolol tartrate 25 mg PO Q8H #90 tab 09/26/19 10/13/19 nitroglycerin [Nitrostat] 0.4 mg SUBLINGUAL Q5 MIN PRN X3 09/26/19 10/13/19 PRN #30 tab oxycodone 5 - 10 mg PO Q4H PRN PRN #30 tab 09/26/19 10/13/19 methylphenidate HCl 10 mg PO BID@08,14 #10 tab 09/27/19 10/13/19 sertraline 200 mg PO DAILY #60 tab 09/27/19 10/13/19 zolpidem [Ambien] 10 mg PO QHS #5 tab 09/27/19 10/13/19 aspirin [Aspir-81] 81 mg PO DAILY 10/13/19 10/13/19 Previous Rx's Medication Instructions Recorded Bio-K plus 1 cap PO DAILY #30 cap 09/26/19 Narcan 4 mg KRISHNA Q2M #2 each 09/26/19 Symbicort 2 puff INHALATION BID #6 gm 09/26/19 albuterol sulfate [Ventolin HFA] 2 puff INHALATION Q4H PRN PRN #1 g 09/26/19 anastrozole [Arimidex] 1 mg PO DAILY #30 tab 09/26/19 ascorbic acid (vitamin C) [Vitamin 500 mg PO BID #60 tab 09/26/19 C] clonazepam 2 mg PO HS #30 tab 09/26/19 cyclobenzaprine 10 mg PO BID #60 tab 09/26/19 docusate sodium [Colace] 100 mg PO TID PRN PRN #60 cap 09/26/19 ergocalciferol (vitamin D2) 50,000 units PO MoWeFr@1000 #12 cap 09/26/19 [Vitamin D2] famotidine 40 mg PO DAILY #30 tab 09/26/19 ferrous sulfate 325 mg PO DAILY #30 tab 09/26/19 folic acid 2 mg PO DAILY #30 tab 09/26/19 glucosamine sulfate 500 mg PO BID #60 cap 09/26/19 lidocaine [Lidoderm] 1 patch TOPICAL DIRECTED #30 ea 09/26/19 loperamide 2 mg PO TID #90 cap 09/26/19 metoprolol tartrate 25 mg PO Q8H #90 tab 09/26/19 nitroglycerin [Nitrostat] 0.4 mg SUBLINGUAL Q5 MIN PRN X3 09/26/19 PRN #30 tab oxycodone 5 - 10 mg PO Q4H PRN PRN #30 tab 09/26/19 methylphenidate HCl 10 mg PO BID@08,14 #10 tab 09/27/19 sertraline 200 mg PO DAILY #60 tab 09/27/19 zolpidem [Ambien] 10 mg PO QHS #5 tab 09/27/19 Allergies Allergy/AdvReac Type Severity Reaction Status Date / Time haloperidol Allergy Severe seizure Unverified 10/13/19 14:37 cephalexin monohydrate Allergy Mild Unverified 10/13/19 14:37 [From Keflex] ciprofloxacin [From Cipro] Allergy Mild Hives Unverified 10/13/19 14:37 dextroamphetamine Allergy Unknown Unverified 10/13/19 14:37 doxylamine Allergy Unknown Unverified 10/13/19 14:37 eszopiclone [From Lunesta] Allergy Unknown Unverified 10/13/19 14:37 Penicillins Allergy Unknown Unverified 10/13/19 14:37 pseudoephedrine Allergy Unknown Unverified 10/13/19 14:25 Sulfa (Sulfonamide Allergy Unknown Unverified 10/13/19 14:37 Antibiotics) trazodone Allergy Unknown Unverified 10/13/19 14:37 venlafaxine HCl AdvReac Severe crazy Unverified 10/13/19 14:37 [From Effexor] dextromethorphan HBr AdvReac Intermediate muscle Unverified 10/13/19 14:37 [From NyQuil] twitch doxylamine succinate AdvReac Intermediate muscle Unverified 10/13/19 14:37 [From NyQuil] twitch omeprazole AdvReac Intermediate Diarrhea Unverified 10/13/19 14:37 pseudoephedrine HCl AdvReac Intermediate muscle Unverified 10/13/19 14:37 [From NyQuil] twitch chlorpromazine HCl AdvReac passes out Unverified 10/13/19 14:37 [From Thorazine] General Stated Complaint: Abd Prob GRISELDA: 3 Review of Systems All systems reviewed & are unremarkable except as noted in HPI and below Constitutional Constitutional: Denies chills and Denies fever(s) Cardiovascular Cardiovascular: Denies chest pain Gastrointestinal Gastrointestinal: Denies nausea and Denies vomiting Musculoskeletal Musculoskeletal: Denies joint swelling Psychiatric Psychiatric: Denies depression COUNT INCLUDES [facility] Social History Smoking/Tobacco Use Status: Former Tobacco Use Second Hand Exposure: No Alcohol Intake: never Drug use: Never Substance use type: does not use Caregiver/Support person: No Household members: none Housing: apartment Number of Children: 2 number of grandchildren: 1 Communication Needs: Cannot Read Education Level: middle school Do you need help understanding health information?: Always Do you feel safe at home: Yes Do you feel safe in your relationship?: Yes Exam Const General: no acute distress Orientation: alert HENMT Head: normal to inspection Ears: external ears normal General nose exam: external nose normal Mouth: moist mucous membranes Eyes General: appearance normal, both eyes and all related structures Neck Neck: normal visual inspection Resp Effort & Inspection: normal respiratory effort and able to speak in complete sentences Cardio Rate: regular rate GI Palpation: soft Skin General skin exam: no rashes or lesions noted Neuro General: alert and oriented x3 Extrem General: normal to inspection Psych Mental Status: mental status grossly normal Course Vital Signs Vital signs: Vital Signs Temperature 37.1 C 10/13/19 14:26 Respiratory Rate 20 10/13/19 14:26 Pulse Oximetry 96 10/13/19 14:26 Temperature 37.1 C 10/13/19 14:26 Temperature Source Skin 10/13/19 14:26 Respiratory Rate 20 10/13/19 14:26 Respiratory Effort Non-Labored 10/13/19 14:31 Blood Pressure Position Sitting 10/13/19 14:26 Pulse Oximetry 96 12/18/19 14:26 Oxygen Delivery Method Room Air 10/13/19 14:26 Oxygen Flow Rate 0 10/13/19 14:26 Pain Level 10 10/13/19 14:26
[2019-10-13] MEDS: HYDROmorphone 2 MG/ML VIAL 1 MG IVP ×2 (14:55→16:04)
[2019-10-13] MEDS: Normal Saline 1,000 ML 1000 ML IV (14:57)
[2019-10-13] MEDS: Normal Saline Flush 10 ML SYR IVP (14:57)
[2019-10-13 15:08] LABS: Abs Immature Grans 0.01 k/cumm (0.0-0.09); Absolute Basophil Count 0.02 k/cumm (0.0-0.2); Absolute Eosinophil Count 0.17 k/cumm (0.0-0.7); Absolute Lymphocyte Count 0.74 k/cumm (1.2-3.4); Absolute Monocyte Count 0.35 k/cumm (0.11-0.7); Absolute Neutrophil Count 5.59 k/cumm (1.2-6.7); Basophils % 0.3; Eosinophils % 2.5; HCT 45.3 % (36.0-46.0); HGB 14.3 g/dL (12.0-15.5); Immature Grans % 0.1; Lymphocytes % 10.8; Mean Corp. HGB Concentration 31.6 g/dL (32.0-36.0); Mean Corpuscular Hemoglobin 33.4 pg (27.0-33.0); Mean Corpuscular Volume 105.8 fL (80-95); Mean Platelet Volume 11.2 fL (8.0-11.0); Monocytes % 5.1; Neutrophils % 81.2; Platelet Count 113 x1000/uL (130-400); RBC 4.28 m/cumm (4.00-5.20); RBC Distribution Width 12.9 % (11.7-14.6); White Blood Cell Count 6.88 k/cumm (4.4-10.8)
[2019-10-13 15:18] LABS: INR 1.2 (0.9-1.1); Prothrombin Time 12.4 sec (9.3-11.0)
[2019-10-13 15:21] LABS: ALT 14 U/L (14-59); AST 21 U/L (15-37); Albumin 3.2 g/dL (3.4-5.0); Alkaline Phosphatase 183 U/L (46-116); Anion Gap 5.2 mmol/L (3-11); BUN 18 mg/dL (7-18); Bilirubin, Direct 0.27 mg/dL (0.00-0.20); Bilirubin, Total 0.9 mg/dL (0.2-1.0); CO2 31.8 mmol/L (21.0-32.0); CREATININE 0.73 mg/dL (0.55-1.02); Calcium 8.8 mg/dL (8.5-10.1); Chloride 103 mmol/L (98-107); Glucose 88 mg/dL (74-106); Lipase 29 U/L (73-393); Potassium 3.9 mmol/L (3.5-5.1); Sodium 140 mmol/L (136-145); Total Protein 7.4 g/dL (6.4-8.2)
--- NOTE | 2019-10-13 15:22 | DI.CT_ITS ---
EXAM: CT CHEST/ABD/PEL W CLINICAL HISTORY: chest and abdominal pain TECHNIQUE: Post IV contrast, no oral contrast. COMPARISON: CT CHEST/ABD/PEL WO from 05/24/2019 FINDINGS: The heart is enlarged. There are no large pulmonary artery filling defects or evidence of aortic diss ection. There is a stable small loculated left pleural effusion. There is stable left apical scarring . Evaluation of the lungs is somewhat limited due to motion. No acute infiltrates are seen. There is a stable loculated left lower chest wall collection. A biliary drainage catheter is in place, unchanged. The pancreas is again noted to be extremely atrop hic. There is a nonobstructing stone in the mid right kidney. No hydronephrosis is seen. Suture mater ial is seen at the stomach. There is no abnormal gastric or small bowel distention. There has been pr evious bowel anastomosis seen in the mid abdomen. There is been an apparent previous abdominal wall h ernia repair. The small bowel is again seen herniating through a small defect in the inferior aspect of the hernia repair. There is no free air or free fluid. The bladder is unremarkable. There is now a mild compression fracture of the superior endplate of L1, new since the previous exam. The remainin g compression fractures in the lumbar spine appear old. IMPRESSION: New mild compression fracture of the superior endplate of L1. No change in biliary drainage catheter . Multiple other chronic findings are also unchanged. No bowel obstruction.
[2019-10-13 15:33] LABS: Macrocytosis 3+
[2019-10-13 15:35] LABS: Diff Comment RBC Morph Reviewed
[2019-10-13] MEDS: Omnipaque 350 MG/ML 100 ML BTL IV (15:43)
[2019-10-13 16:31] LABS: Bilirubin Negative (Negative); Blood Large (Negative); Clarity Cloudy (Clear); Glucose Negative (Negative); Ketones Trace mg/dL (Negative); Leukocyte Esterase Moderate (Negative); Nitrite Positive (Negative); Specific Gravity 1.015 (1.005-1.025); pH 5.5 (5-8)
[2019-10-13 16:35] LABS: Bacteria Many HPF (Negative); C & S Indicated? Yes; Casts Negative LPF (Negative); Crystals Negative HPF (Negative); Mucus Negative (Negative); RBC >50 HPF (0-2); WBC >50 HPF (0-5)
[2019-10-13] MEDS: MacroBID 100 MG CAP PO (17:40)
--- NOTE | 2019-10-14 16:48 | PDOC.ERCMPRO ---
- If Service Date Differs Date of service: 10/14/19 Time of Service: 16:48 Care Management Progress Note MICHAEL spoke with Prema over the phone she was able to go to [place] [facility] [place] She did have her biliary drain changed today she is now home and comfortable. She reports the wheelchair company did look at her chair today she states the chair was not fully repaired however the company [employer] will be returning she reports to complete the repair. She states that she is comfortable she is no longer having pain in her abdomen only some mild discomfort around the insertion site. Prema's caregiver will return in the morning. MICHAEL has sent an update to community marketing coordinator and included home health in the recent encounter. P: CM will continue to provide transitional support and assist with coordination of community resources. Home Health, [place] [facility], as well as [facility] at primary care office is organizing the team meeting for hand off. Team meeting and hand off will occur this first week of October patient and team are aware of transition plan.
--- NOTE | 2019-10-18 13:39 | PDOC.ERCMPRO ---
Care Management Progress Note CM rec'd call from Dulce Shen, [facility] reported Dr. Marrero is willing to prescribe medications for Prema until she is able to meet with Dr. Gutiérrez. Dulce requested updated phone number and list of medications needed. CM deferred Dulce to Tracey Anderson: [phone].
== END 2019-10-13 17:39 | disposition home or self-care (01) ==
LOC: ER 17:37
PROVIDERS: Emergency Provider Emergency Medicine; PCP Family Medicine
DX: R10.13 Epigastric pain (principal); G89.29 Other chronic pain; Z96.89 Presence of other specified functional implants; R82.79 Other abnormal findings on microbiological examination of urine; J44.9 Chronic obstructive pulmonary disease, unspecified; Z87.891 Personal history of nicotine dependence
CPT/HCPCS: 36415; 74177; 80053; 83690; 87077; 96361; 96374; 96376; 99285; 71260; 81003; 81015; 82248; 83735; 85025; 85610; 85730; 87086; 87186; 99284; J3490

== ENCOUNTER 2019-11-08 12:26 | Outpatient (REF) | payer MEDICARE, MEDICAID, SELFPAY ==
[2019-11-08 18:25] LABS: Bilirubin Small (Negative); Blood Trace-intact (Negative); Clarity Cloudy (Clear); Glucose Negative (Negative); Ketones Negative (Negative); Leukocyte Esterase Small (Negative); Nitrite Negative (Negative); Urobilinogen 0.2 EU/dL (Up TO 0.2)
[2019-11-08 18:27] LABS: C & S Indicated? C&S Done As Ordered
[2019-11-08 18:32] LABS: Bacteria Moderate HPF (Negative); Casts Negative LPF (Negative); Crystals Negative HPF (Negative); Epithelial Cells Few HPF (Negative); Mucus Negative (Negative); Other Cells Few Yeast (Negative); RBC Negative HPF (0-2); WBC >50 HPF (0-5)
== END 2019-11-08 12:46 ==
LOC: NCHCN 12:26
PROVIDERS: PCP Family Medicine; Visit Provider Family Medicine
DX: R31.9 Hematuria, unspecified (principal)
CPT/HCPCS: 81003; 81015; 87086

== ENCOUNTER 2019-11-10 13:18 | Emergency (ER) | payer MEDICARE, MEDICAID, SELFPAY ==
[2019-11-10 13:38] VITALS: BP 94/56; PULSE 76; RESP 16; TEMP 36.1; O2SAT 95
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
--- NOTE | 2019-11-10 14:27 | DI.RAD_ITS ---
EXAM: XR ANKLE LT COMPLETE INDICATION: Left ankle injury, pain. COMPARISON: No exams were available for comparison TECHNIQUE: 2D digital imaging was performed. FINDINGS: No acute fracture or dislocation is seen. The ankle mortise is intact. The bones are osteopenic. T here is soft tissue swelling of the ankle. Spurs are seen in the posterior calcaneus. No radiopaque foreign bodies are seen in the soft tissues. IMPRESSION: No acute fracture or dislocation.
[2019-11-10] MEDS: Acetaminophen 500 MG TAB PO (14:50)
--- NOTE | 2019-11-11 16:20 | CMPROGNOTE_ITS ---
- If Service Date Differs Date of service: 11/11/19 Time of Service: 16:21 Care Management Progress Note S/O: CM met with Prema on 11/10/2019 and over the phone on 11/11/2019. She came to the ED for ankle pain after reported injury at home. She continues to have discomfort but is managing it with topical pain relief. She states that her caregiver was able to undo the lesley today and apply the topical and rewrap. Prema is talkative, she states that she is working with [facility] community case management to reinstate her SSI, she did reinstate her three squares, she continues to receive meals on wheels and home health services. She is mobile with her electric wheelchair she was able to get to the ED by [facility] and CM coordinated a ride home through [facility]. P: Prema has a primary care appointment scheduled for the 27th requested chronic critical care unit manager meet with her at the visit for ongoing support. CM continues to provide phone support. Primary care continues to obtain a new hospital bed for Prema.
== END 2019-11-10 15:10 | disposition home or self-care (01) ==
PROVIDERS: Emergency Provider Registered Nurse Emergency; PCP Family Medicine
DX: S93.402A Sprain of unspecified ligament of left ankle, initial encounter (principal); M77.32 Calcaneal spur, left foot; W20.8XXA Other cause of strike by thrown, projected or falling object, initial encounter; Z99.3 Dependence on wheelchair; I10 Essential (primary) hypertension
CPT/HCPCS: 99283; 73610

== ENCOUNTER 2020-01-04 08:48 | Outpatient (CLI) | payer MEDICARE, MEDICAID, SELFPAY ==
--- NOTE | 2020-01-04 | DI.US_ITS ---
EXAM: US LOWER EXTREMITY VENOUS LT CLINICAL HISTORY: LEG EDEMA LT, R60.0 TECHNIQUE: Left lower extremity venous ultrasound performed using grayscale, color-flow, and spectra l Doppler analysis. COMPARISON: No exams were available for comparison FINDINGS: The left common femoral, femoral and popliteal veins demonstrate normal compressibility, augmentation , and color Doppler. The posterior tibial veins are patent. The saphenofemoral junction is unremarkab le. There is thrombus seen in the greater saphenous vein from the mid to distal thigh consistent wit h superficial thrombophlebitis. IMPRESSION: 1. No DVT. 2. Superficial thrombophlebitis. DATA REPOSITORY:
== END 2020-01-04 09:08 ==
PROVIDERS: PCP Family Medicine; Visit Provider Family Medicine
DX: R60.0 Localized edema (principal); I80.02 Phlebitis and thrombophlebitis of superficial vessels of left lower extremity
CPT/HCPCS: 93971

== ENCOUNTER 2020-01-23 14:26 | Emergency (ER) | payer MEDICARE, MEDICAID, SELFPAY ==
[2020-01-23 14:31] VITALS: BP 87/45; PULSE 82; TEMP 36.9; O2SAT 100
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
--- NOTE | 2020-01-23 16:25 | DI.VRAD_ITS ---
PROCEDURE INFORMATION: Exam: CT Left Lower Extremity Without Contrast, Knee Exam date and time: 01/23/2020 3:31 PM Age: 64 years old Clinical indication: Injury or trauma; Fall; Initial encounter; Sprain or strain; Patella or knee; Left; Patient HX: Pain, questionable x-ray, ? medial plateau FX TECHNIQUE: Imaging protocol: CT of the Left lower extremity without contrast was performed. Exam focused on the knee. Radiation optimization: All CT scans at this facility use at least one of these dose optimization techniques: automated exposure control; mA and/or kV adjustment per patient size (includes targeted exams where dose is matched to clinical indication); or iterative reconstruction. COMPARISON: CR XR KNEE LT 4V+ 01/23/2020 2:58 PM FINDINGS: Bones/joints: Tricompartmental joint space narrowing consistent with degenerative changes. There is no evidence of acute fracture.There is no evidence of malalignment or dislocation. Soft tissues: Extensive soft tissue density consistent with morbid obesity. IMPRESSION: 1. Tricompartmental joint space narrowing consistent with degenerative changes. 2. There is no evidence of acute fracture.There is no evidence of malalignment or dislocation. Dictated and Authenticated by: Deuce Carrera MD. Ordering:GALINA Land MD
== END 2020-01-23 16:49 | disposition home or self-care (01) ==
PROVIDERS: Emergency Provider Physician Assistant; PCP Family Medicine
DX: M25.562 Pain in left knee (principal); W22.8XXA Striking against or struck by other objects, initial encounter; Z99.3 Dependence on wheelchair; I10 Essential (primary) hypertension
CPT/HCPCS: 99284; 73564; 73700

== ENCOUNTER 2020-02-01 09:12 | Emergency (ER) | payer MEDICARE, MEDICAID, SELFPAY ==
[2020-02-01] VITALS (40 sets, daily range): BP systolic 68–95; BP diastolic 43–69; PULSE 82–132; RESP 12–26; TEMP 36.6–36.8; O2SAT 89–100
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
--- NOTE | 2020-02-01 10:21 | DI.RAD_ITS ---
EXAM: XR ANKLE RT 2V CLINICAL HISTORY: Ankle pain TECHNIQUE: COMPARISON: XR ANKLE LT COMPLETE from 11/10/2019 FINDINGS: Two views were obtained. There is deformity of the anterior aspect of the distal tibia, this is of u ncertain age. Note is also made of deformity of the distal fibula, of uncertain age. Possibility of acute fracture not excluded, please correlate regarding exact site of the patient's injury. IMPRESSION:
--- NOTE | 2020-02-01 10:21 | DI.RAD_ITS ---
EXAM: XR KNEE RT 2V AP,LAT CLINICAL HISTORY: pain TECHNIQUE: COMPARISON: XR KNEE LT 4V+ from 01/23/2020 XR FEMUR RT from 02/01/2020 FINDINGS: Four views of the femur and 2 additional views of the knee were obtained. There is a spiral fracture of the mid femur with moderate displacement and marked valgus angulation at the fracture site. No a dditional fracture seen on these limited views. Severe hypertrophic degenerative changes of the knee noted. IMPRESSION:
[2020-02-01 10:47] LABS: Abs Immature Grans 0.05 k/cumm (0.0-0.09); Absolute Basophil Count 0.02 k/cumm (0.0-0.2); Absolute Monocyte Count 0.35 k/cumm (0.11-0.7); Absolute Neutrophil Count 11.19 k/cumm (1.2-6.7); Basophils % 0.2; Eosinophils % 0.2; HCT 37.5 % (36.0-46.0); HGB 11.9 g/dL (12.0-15.5); Immature Grans % 0.4 %; Lymphocytes % 5.7; Mean Corp. HGB Concentration 31.7 g/dL (32.0-36.0); Mean Corpuscular Hemoglobin 34.4 pg (27.0-33.0); Mean Corpuscular Volume 108.4 fL (80-95); Mean Platelet Volume 10.7 fL (8.0-11.0); Monocytes % 2.8; Neutrophils % 90.7; Platelet Count 167 x1000/uL (130-400); RBC 3.46 m/cumm (4.00-5.20); RBC Distribution Width 14.7 % (11.7-14.6); White Blood Cell Count 12.34 k/cumm (4.4-10.8)
[2020-02-01] MEDS: Ondansetron 4 MG/2 ML VIAL IVP (10:48)
[2020-02-01 10:49] LABS: Absolute Eosinophil Count 0.02 k/cumm (0.0-0.7)
[2020-02-01] MEDS: fentaNYL 100 MCG/2 ML VIAL 25 MCG IVP (11:00)
[2020-02-01 11:01] LABS: ALT 11 U/L (14-59); AST 14 U/L (15-37); Alkaline Phosphatase 147 U/L (46-116); Anion Gap 5.2 mmol/L (3-11); BUN 24 mg/dL (7-18); Bilirubin, Total 0.5 mg/dL (0.2-1.0); CO2 29.8 mmol/L (21.0-32.0); CREATININE 1.27 mg/dL (0.55-1.02); Calcium 8.2 mg/dL (8.5-10.1); Chloride 104 mmol/L (98-107); Estimated GFR 42.23 (mL/min/1.73m2); Glucose 115 mg/dL (74-106); Potassium 3.9 mmol/L (3.5-5.1); Sodium 139 mmol/L (136-145); Total Protein 6.1 g/dL (6.4-8.2)
[2020-02-01 11:03] LABS: ETHANOL BLOOD 3.4 mg/dL (<3)
[2020-02-01 11:15] LABS: INR 1.3 (0.9-1.1); Prothrombin Time 12.8 sec (9.3-11.0)
--- NOTE | 2020-02-01 11:50 | NUR.NOTE ---
Nursing Note: Provider made aware of BP 80/62 and at time lower. See flow sheet. Per provider, base on chart, this is a typical BP for this patient.
[2020-02-01] MEDS: Normal Saline 1,000 ML 1000 ML IV (12:02)
[2020-02-01] MEDS: HYDROmorphone 2 MG/ML VIAL 0.5 MG IVP (12:03)
--- NOTE | 2020-02-01 12:51 | W.ORTHOCONSU ---
Date of service: 02/01/20 Time of Service: 11:51 History of Present Illness History of Present Illness Chief Complaint: Right Leg Pain Narrative: Prema is a 64-year-old morbidly obese female with multiple medical comorbidities who is wheelchair dependent who injured her right leg. Her right leg was stuck under her chair as she was moving and she felt and heard a pop in the right thigh with exquisite pain. She was out of her wheelchair and unable to get up on her own. She was brought in by EMS and diagnosed with a midshaft right femur fracture. She reports excruciatingly sharp pain about the right thigh, mid-thigh. She denies any new pain to the left leg. She has chronic pain about her extremities, mostly the knees. She is non-ambulatory and is in a wheelchair for the majority of the day. She denies any new numbness or tingling. Consults Consult date: 02/01/20 Requesting physician: Sonia Shelley Consult Reason Right Femur Fracture Assessment and Plan Assessment and plan (1) Femur fracture, right: Status: Acute Assessment and plan: Prema is a 64yo female with multiple chronic medical comorbidities including morbid obesity, severe pulmonary hypertension with severe tricuspid regurgitation, chronic hypotension, chronic peripheral edema, narcotic dependence, COPD on home oxygen, STACEY, wheelchair dependence with chronic weakness and malnutrition who got her right foot stuck and under her and suffered a midshaft femur fracture. While she has many comorbidities which have an increased risk, stabilization of the femur would provide pain control and the ability to get back into her wheelchair much more quickly than any nonoperative modality. She is morbidly obese with notably severe edema and therefore I would recommend a retrograde femoral nail. She also has some baseline contracture of the hips and knees which would make surgery easier in a retrograde fashion. I discussed this with the hospitalist, anesthesia and care management. Prema is very familiar to [facility] and has a host of medical issues. Anesthesia does not believe she is safe to have surgery at [facility] given her comorbidities. Most recent previous surgeries have been performed at [facility], and with complications. Therefore, I recommend transfer to a tertiary center for her complete management, preferably [facility] given their familiarity with her and previous care. Qualifiers: Encounter type: initial encounter Femur location: shaft Fracture type: closed Fracture morphology: oblique Fracture alignment: displaced Qualified Code(s): S72.331A - Displaced oblique fracture of shaft of right femur, initial encounter for closed fracture Review of Systems All systems reviewed & are unremarkable except as noted in HPI and below PFSH Medical History ADD (attention deficit disorder) Angina at rest Anxiety (Chronic) Asthma Atrial fibrillation (Chronic) Atrial fibrillation Bilateral cataracts (Chronic) Breast cancer Chest pain, atypical Chronic back pain (Chronic) Chronic pain Chronic rhinitis Cirrhosis of liver Compression fracture of spine Decreased visual acuity Depression (Chronic) Depression Diastolic heart failure (Chronic) Diastolic heart failure DJD (degenerative joint disease) (Chronic) Gastric bypass status for obesity GI (gastrointestinal bleed) Goals of care, counseling/discussion (Acute) History of DVD (Chronic) History of paroxysmal supraventricular tachycardia History of PSVT (paroxysmal supraventricular tachycardia) (Chronic) Hx of deep venous thrombosis Hyperparathyroidism , secondary, non-renal Hypertension IBS (irritable bowel syndrome) Illiterate (Acute) Insomnia Morbid obesity Morbid obesity with BMI of 45.0-49.9, adult (Chronic) STACEY (obstructive sleep apnea) (Chronic) STACEY (obstructive sleep apnea) Osteoarthritis Osteopenia Oxygen dependent Paroxysmal atrial fibrillation (Chronic) Rate controlled on metoprolol. PUD (peptic ulcer disease) Pulmonary HTN Right heart failure with reduced right ventricular function (Chronic) Superficial thrombophlebitis Tricuspid regurgitation Surgical History Breast, Mastectomy EGD - MAC Gastric Bypass 1998 History of biliary T-tube placement (Resolved 09/01/18) Family History Mother , also legally blind, ? due to diabetes; in her 80s COPD (chronic obstructive pulmonary disease) Father , in his 80s hateful man physically, sexually, psychologically abusive Glioblastoma Son No problems noted. Son Bipolar 1 disorder ADHD Diabetes Social History Smoking/Tobacco Use Status: Former Tobacco Use Second Hand Exposure: No Alcohol Intake: never Drug use: Never Substance use type: does not use Caregiver/Support person: No Household members: none Housing: apartment Number of Children: 2 number of grandchildren: 1 Communication Needs: Cannot Read Education Level: middle school Do you need help understanding health information?: Always Do you feel safe at home: Yes Do you feel safe in your relationship?: Yes Exam Const General: uncomfortable, in distress and disheveled Nutritional Appearance: obese morbidly obese and edematous Orientation: alert, awake and oriented x3 HENMT Head: normal to inspection and normocephalic Resp Effort & Inspection: normal respiratory effort Cardio Rate: regular rate Extrem Other: Evaluation of the right leg shows it to be shortened and externally rotated. There is significant edema about the right leg with some chronic venous stasis changes about the leg distally. There is no notable skin defect or sign of open injury. There is notable pain to palpation throughout the leg but most focused about the thigh. No increase in pain with palpation of the ankle, foot or lower leg. +ADF/APF/EHL/FHL. Unable to fully describe sensation due to crying and moaning. Endorsed general decreased sensation about the foot in no pattern. Palpable PT pulse. Results Last Vital Signs Temp 97.9 F 02/01/20 11:30 Pulse 82 02/01/20 11:45 Resp 20 02/01/20 11:45 BP 80/62 L 02/01/20 11:45 Pulse Ox 95 02/01/20 11:45 Labs Result diagrams: 02/01/20 10:32 02/01/20 10:32 Labs: Laboratory Results - last 24 hr 02/01/20 02/01/20 02/01/20 10:32 10:32 10:32 WBC 12.34 H RBC 3.46 L Hgb 11.9 L Hct 37.5 MCV 108.4 H MCH 34.4 H MCHC 31.7 L RDW 14.7 H Plt Count 167 MPV 10.7 Immature Gran % 0.4 Neutrophils % 90.7 Lymphocytes % 5.7 Monocytes % 2.8 Eosinophils % 0.2 Basophils % 0.2 Absolute Neutrophils 11.19 H Absolute Lymphocytes 0.70 L Absolute Monocytes 0.35 Absolute Eosinophils 0.02 Absolute Basophils 0.02 PT 12.8 H INR 1.3 H Sodium 139 Potassium 3.9 Chloride 104 Carbon Dioxide 29.8 Anion Gap 5.2 BUN 24 H Creatinine 1.27 H Estimated GFR/1.73 m2 42.23 Glucose 115 H Calcium 8.2 L Total Bilirubin 0.5 AST 14 L ALT 11 L Alkaline Phosphatase 147 H Total Protein 6.1 L Albumin 2.0 L Ethyl Alcohol 02/01/20 10:32 WBC RBC Hgb Hct MCV MCH MCHC RDW Plt Count MPV Immature Gran % Neutrophils % Lymphocytes % Monocytes % Eosinophils % Basophils % Absolute Neutrophils Absolute Lymphocytes Absolute Monocytes Absolute Eosinophils Absolute Basophils PT INR Sodium Potassium Chloride Carbon Dioxide Anion Gap BUN Creatinine Estimated GFR/1.73 m2 Glucose Calcium Total Bilirubin AST ALT Alkaline Phosphatase Total Protein Albumin Ethyl Alcohol 3.4 Imaging Imaging Studies: XR of the right femur demonstrates poor bone quality with thinned cortices. There is a mid-shaft oblique fracture of the femur with shortening, malrotatin, and valgus angulation. No extension distally. No apparent femoral neck fracture.
[2020-02-01] MEDS: oxyCODONE 5 MG TAB PO (13:37)
--- NOTE | 2020-02-01 14:00 | DI.RAD_ITS ---
EXAM: XR CHEST 1V IN DI DEPT CLINICAL HISTORY: Trauma TECHNIQUE: COMPARISON: CHEST 2 VIEWS PA,LAT from 08/28/2017 XR PORTABLE CHEST AP from 05/27/2019 FINDINGS: Portable AP chest was obtained. Cardiac size is within normal limits. Pleural thickening is noted a t the left lung apex unchanged from prior examinations. No gross pleural effusion seen on frontal fi lm. No acute intrapulmonary infiltrate or consolidation. IMPRESSION: No evidence of acute process.
--- NOTE | 2020-02-01 14:00 | DI.RAD_ITS ---
EXAM: XR PELVIS AP CLINICAL HISTORY: trauma TECHNIQUE: COMPARISON: RT HIP COMPLETE AP PELVIS from 12/23/2017 FINDINGS: Two views were obtained. This patient has a mid femoral fracture. No proximal femoral or pelvic fra cture identified on this limited series. IMPRESSION:
--- NOTE | 2020-02-01 14:40 | NUR.NOTE ---
Nursing Note: PT care report transferred to [facility] (Puja) and EMT (Javi). All PT care information, treatments, and interventions transferred to EMS during transfer of care. At the time of transfer the PT is alert and oriented, vitals stable.
--- NOTE | 2020-02-01 14:41 | NUR.NOTE ---
Nursing Note: At 1331 right Lower extremity splinted by provider.
== END 2020-02-01 14:55 | disposition short-term general hospital (02) ==
PROVIDERS: Emergency Provider Registered Nurse Emergency; PCP Family Medicine
DX: S72.341A Displaced spiral fracture of shaft of right femur, initial encounter for closed fracture (principal); W23.0XXA Caught, crushed, jammed, or pinched between moving objects, initial encounter; M25.561 Pain in right knee; M25.571 Pain in right ankle and joints of right foot; E66.01 Morbid (severe) obesity due to excess calories; I27.20 Pulmonary hypertension, unspecified; Z99.3 Dependence on wheelchair; J44.9 Chronic obstructive pulmonary disease, unspecified; I50.9 Heart failure, unspecified
CPT/HCPCS: 29505; 51702; 73552; 80053; 93005; 96361; 96374; 96375; 99253; 99284; 99285; 71045; 72170; 73560; 73600; 73610; 80320; 85025; 85610; 93010; J2405; J3010